=== PATIENT | female | born 1955 | race Caucasian/White ===

== ENCOUNTER 2021-05-18 14:08 | Outpatient (CLI) | payer MEDICARE, SELFPAY ==
--- NOTE | ~2021-05-18 | US_ITS ---
EXAMINATION: US venous doppler LE RT EXAM DATE: 05/18/2021 14:38 INDICATION: Localized edema/swelling. TECHNIQUE: Multiple grayscale, color flow and Doppler images of the right lower extremity deep venous system were obtained and reviewed. There is no prior study for comparison. FINDINGS: The right common femoral, femoral and profunda veins demonstrate normal color flow, respira tory variation, augmentation and compressibility. Compressibility, color flow confirmed within the r ight popliteal, posterior tibial, peroneal, and greater saphenous veins. IMPRESSION: 1. No right lower extremity deep venous thrombosis. Reviewed, dictated and finalized at location B.
== END 2021-05-18 14:09 | disposition home or self-care (01) ==
LOC: ANHIMG 14:13
PROVIDERS: PCP Registered Nurse; Visit Provider Registered Nurse
DX: R22.41 Localized swelling, mass and lump, right lower limb (principal)
CPT/HCPCS: 93971

== ENCOUNTER 2022-04-10 13:29 | Outpatient (CLI) | payer MEDICARE, SELFPAY ==
--- NOTE | ~2022-04-10 | US_ITS ---
EXAMINATION: US venous doppler [facility] DATE: 04/10/2022 14:22 INDICATION: LEFT LEG SWELLING TECHNIQUE: Grayscale images without and with compression and Doppler images of the left lower extremi ty veins were obtained. COMPARISON: 05/18/21. FINDINGS: The left common femoral vein, profunda femoral vein, femoral vein, popliteal vein, peroneal vein, pos terior tibial veins, gastrocnemius vein, and greater saphenous vein are patent. IMPRESSION: 1. Patent left lower extremity veins. No evidence of deep venous thrombosis. Reviewed, dictated and finalized at location K.
== END 2022-04-10 13:30 | disposition home or self-care (01) ==
PROVIDERS: PCP Registered Nurse; Visit Provider Registered Nurse
DX: M79.89 Other specified soft tissue disorders (principal)
CPT/HCPCS: 93971

== ENCOUNTER 2022-08-27 14:16 | Emergency (ER) | payer MEDICARE, SELFPAY ==
--- NOTE | ~2022-08-27 | US_ITS ---
EXAMINATION: US venous doppler [facility] DATE: 08/27/2022 16:57 INDICATION: Lower extremity swelling TECHNIQUE: Farooq scale images without and with compression and Doppler images of the bilateral lower e xtremity veins were obtained. COMPARISON: 04/10/2022 FINDINGS: The right common femoral vein, profunda femoral vein, femoral vein, popliteal vein, peroneal trunk, p osterior tibial veins, and greater saphenous vein are patent. The left common femoral vein, profunda femoral vein, femoral vein, popliteal vein, peroneal trunk, po sterior tibial veins, and greater saphenous vein are patent. IMPRESSION: 1. Patent bilateral lower extremity veins. No evidence of deep venous thrombosis. Reviewed, dictated and finalized at location A. IMPRESSION: 1. Patent bilateral lower extremity veins. No evidence of deep venous thrombosi s.
--- NOTE | ~2022-08-27 | XR_ITS ---
EXAMINATION: XR chest 2V DATE: 08/27/2022 16:35 INDICATION: Hypoxia TECHNIQUE: PA and lateral views of the chest are obtained. COMPARISON: None available FINDINGS: There are patchy opacities of the mid and lower lung zones. No pleural effusion or pneumoth orax. The cardiomediastinal silhouette is normal. There is moderate thoracic spondylosis. IMPRESSION: 1. Patchy opacities of the mid and lower lung zones, consistent with atelectasis versus pneumonia. Reviewed, dictated and finalized at location A. IMPRESSION: 1. Patchy opacities of the mid and lower lung zones, consistent with atelectasi s versus pneumonia.
[2022-08-27 14:23] VITALS: BP 132/72; PULSE 104; RESP 16; TEMP 36.9; O2SAT 94
--- NOTE | 2022-08-27 15:10 | PC.NURSE ---
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 I do not appreciate that 3 other people who came in after I did have been back before me. This rn explained that the patient was the next to come back as soon as a bed became available.
--- NOTE | 2022-08-27 15:30 | PC.NURSE ---
1st call, no answer.
[2022-08-27 16:00] VITALS: BP 128/73; PULSE 63; RESP 12; O2SAT 95
[2022-08-27 16:16] LABS: Basophils Absolute Auto 0.1 K/mm3 (0.0-0.1); Basophils Percent Auto 0.6 % (0.2-1.2); Eosinophils Absolute Auto 0.3 K/mm3 (0-0.3); Eosinophils Percent Auto 2.9 % (0-4.4); Hematocrit 35.7 % (37.0-47.0); Hemoglobin 12.1 g/dL (12.0-15.0); Immature Granulocyte Absolute 0.02 K/mm3 (0.00-0.031); Immature Granulocyte Percent A 0.2 % (0-0.5); Lymphocytes Absolute Auto 2.54 K/mm3 (0.9-3.2); Lymphocytes Percent Auto 29.6 % (18.3-44.2); Mean Corpuscular HGB Conc 33.9 g/dl (32-36); Mean Corpuscular Hemoglobin 29.2 pg (26-34); Mean Platelet Volume 10.3 fl (7.4-10.4); Monocytes Absolute Auto 0.7 K/mm3 (0.1-0.6); Monocytes Percent Auto 7.7 % (2.6-8.5); Neutrophils Absolute Auto 5.1 K/mm3 (1.3-6.7); Platelet Count Result 308 k/mm3 (150-375); Red Blood Count 4.15 M/mm3 (4.2-5.4); Red Cell Distribution Width 15.1 % (11.5-14.5); White Blood Count 8.6 K/mm3 (4.5-10.0)
[2022-08-27 16:26] LABS: Prothrombin Time 12.8 Seconds (11.1-14.7)
[2022-08-27 16:27] LABS: Partial Thromboplastin Time 33.4 SECONDS (22.3-36.8)
[2022-08-27 16:56] LABS: Alanine Aminotransferase 19 U/L (6-35); Alkaline Phosphatase 102 U/L (38-126); Anion Gap 11 mmol/L (8-16); Aspartate Amino Transferase 30 U/L (14-36); Bilirubin,Total 0.3 mg/dL (0.2-1.3); Blood Urea Nitrogen 15 mg/dL (7-17); Calcium 9.4 mg/dL (8.4-10.2); Carbon Dioxide 32 mmol/L (22-30); Chloride 92 mmol/L (98-107); Estimated CRCL calculation 43 ml/min; Estimated Glomerular Filt Rate > 60; Glucose 85 mg/dL (65-110); Sodium 135 mmol/L (137-145)
[2022-08-27 17:04] LABS: CRP 3.6 mg/dL (<1.0)
--- NOTE | 2022-08-27 17:12 | ED.WOUNDLAC ---
HPI - Wound/Laceration General Chief Complaint: Wound/Laceration Stated Complaint: infected hernandez and back of leg Time Seen by Provider: 08/27/22 15:47 Source: patient and RN notes reviewed Mode of arrival: ambulatory Limitations: no limitations History of Present Illness HPI narrative: This is a 67 year old female smoker who presents for evaluation of wounds to left lower leg. She has been getting intermittent small sores to her left hernandez for 1 year. She states over the past few days she has notices 3 small red areas to her hernandez. She also reports edema to her left leg for 1 year and it has continued worsen. She also reports her right leg seems to have more swelling since yesterday. She denies shortness of breath, fever, chills, chest pain, nausea or vomiting. She was placed on z valorie 2 weeks ago for possible pneumonia. Related Data Home Medications Medication Instructions Recorded Confirmed cyclobenzaprine 10 mg tablet mg 08/27/22 oxybutynin chloride 5 mg mg PO 08/27/22 tablet,extended release 24 hr oxycodone 10 mg tablet mg 08/27/22 oxycodone 10 mg tablet,crush mg PO 08/27/22 resistant,extended release 12 hr (OxyContin) pregabalin 100 mg capsule mg 08/27/22 sertraline 100 mg tablet mg 08/27/22 Allergies Allergy/AdvReac Type Severity Reaction Status Date / Time Cephalosporins Allergy Rash Verified 08/27/22 14:26 vancomycin Allergy Rash Verified 08/27/22 14:26 Review of Systems Review of Systems: All systems reviewed & are unremarkable except as noted in HPI and below Constitutional: Constitutional: Denies chills, Denies fatigue and Denies fever(s) Respiratory: Respiratory: Denies chest congestion and Reports cough Gastrointestinal: Gastrointestinal: Denies abdominal pain, Denies nausea and Denies vomiting Integumentary/Breasts: Skin/Breast: Reports erythema and Reports skin ulcer Neurologic: Denies focal weakness PMFSH Past Medical History Medical History Hypertension Surgical History Surgical History H/O umbilical hernia repair Family History Family History (Updated 06/13/22 @ 16:08 by Dolores Gaines MA) Other Heart disease Hypertension Social History Social History (Updated 08/27/22 @ 17:15 by Margarita Edwards MD) Smoking status: Current every day smoker Alcohol intake: current Substance use: current Substance use type: marijuana Exam Const: General: no acute distress and alert Nutritional Appearance: well nourished Orientation/consciousness: patient oriented x3 Limitations: no limitations HENMT: Head: normal to inspection Eyes: EOM: EOMs intact bilaterally Chest: Chest palpation & inspection: normal inspection of the chest Resp: Effort & Inspection: normal respiratory effort Auscultation: clear to auscultation bilaterally Cardio: Rate: regular rate Rhythm: regular rhythm Heart sounds: no murmurs GI: GI Palp: Yes Soft to palpation, No Tenderness to palpation present (GI), No Guarding due to palpation present (GI) and No Rigid due to palpation Auscultation: normal bowel sounds Skin: General skin exam: normal color Other: left anterior lower leg with flaky, scaly skin with small areas with randolph crusting, mild erythema Neuro: General: patient oriented x3, moves all extremities and CN's II-XI intact bilaterally Extrem: Other: bilateral lower leg edema with left greater than right Psych: Mental Status: mental status grossly normal Affect: normal affect Attitude: cooperative Course Reevaluation(s) Reevaluation #1: I Discussed with patient labs are unremarkable. ABG is not arterial. PAtient is not 77% on room air and she is no acute distress. REspiratory tried multiple times unable to get arterial draw. PAtient was not acidotic. She will be treated for impetigo. Date: 08/27/22 Time: 17:15 Vital Signs Vital signs
[2022-08-27 17:29] LABS: Base Excess ABG 3.5 mEq/l (+/-2.0); Fractional Inspired Oxygen 21 %; Methemoglobin ABG 0.1 %THb (0-1.5)
[2022-08-27 17:32] LABS: NT Pro B Type Natriuretic Pept 324 pg/mL (5-100)
[2022-08-27 17:51] LABS: PCO2 ABG 45.2 mmHg (35.0-45.0); pH ABG 7.419 (7.350-7.450)
[2022-08-27 17:52] LABS: HCO3 ABG 28.6 mEq/l (22.0-26.0); Oxygen Saturation ABG 77.7 % (95.0-100.0); PO2 ABG 41.6 mmHg (80.0-100.0)
[2022-08-27 17:53] LABS: Carboxyhemoglobin 9.3 % THb (0-2.0); Oxygen Content ABG 13.1 %vol (16.0-22.0); Oxyhemoglobin 74.2 % THb (90.0-100.0); PO2 FiO2 Ratio Arterial Blood 1.98 %; Reduced Hemoglobin 16.4 %THb (0-5.0); Total Hemoglobin 12.6 g/dL (12.0-18.0)
[2022-08-27 17:54] LABS: Device ROOM AIR; Modified Allen's Test Pass; Site Drawn LEFT RADIAL
[2022-08-27 18:00] VITALS: BP 139/85; PULSE 99; RESP 19; O2SAT 96
[2022-08-27 18:05] LABS: SARS-CoV-2 RNA PCR Negative
== END 2022-08-27 18:50 | disposition home or self-care (01) ==
PROVIDERS: Emergency Provider General Practice; PCP Registered Nurse
DX: L01.00 Impetigo, unspecified (principal); R60.0 Localized edema; Z20.822 Contact with and (suspected) exposure to COVID-19; I10 Essential (primary) hypertension; F17.200 Nicotine dependence, unspecified, uncomplicated; R91.8 Other nonspecific abnormal finding of lung field
CPT/HCPCS: 36415; 36600; 71046; 80053; 82375; 82805; 83050; 83880; 85025; 85610; 85730; 86140; 93970; 99284; C9803; U0003; U0005

== ENCOUNTER 2022-09-13 15:30 | Inpatient (IN) | payer MEDICARE, SELFPAY ==
[2022-09-13] VITALS (7 sets, daily range): BP systolic 104–138; BP diastolic 58–84; PULSE 67–99; RESP 16–18; TEMP 37–37.1; O2SAT 90–95; BMI 17.6
--- NOTE | ~2022-09-13 | US_ITS ---
EXAMINATION: US venous doppler [facility] DATE: 09/16/2022 11:10 INDICATION: Lower limb swelling TECHNIQUE: Grayscale ultrasound images without and with compression and Doppler ultrasound images of the left lower extremity veins were obtained. COMPARISON: None. FINDINGS: The visualized portions of left common femoral vein, profunda (deep) femoral vein, femoral vein, popl iteal vein, peroneal veins, posterior tibial veins, gastrocnemius vein and greater saphenous vein out flow are patent. IMPRESSION: 1. No deep venous thrombosis in the left lower limb. Reviewed, dictated and finalized at location A.
--- NOTE | ~2022-09-13 | XR_ITS ---
EXAMINATION: XR chest 2V DATE: 09/13/2022 18:21 INDICATION: Hypoxia TECHNIQUE: AP and lateral views of the chest are obtained. COMPARISON: 08/27/2022 FINDINGS: Patchy opacities of the mid and lower lung zones persist without significant change. No ple ural effusion or pneumothorax. The cardiomediastinal silhouette is normal. There is moderate thoracic spondylosis. IMPRESSION: 1. Stable patchy opacities of the mid and lower lung zones, consistent with atelectasis versus pneumo sarah. Reviewed, dictated and finalized at location F. IMPRESSION: 1. Stable patchy opacities of the mid and lower lung zones, consistent with ate lectasis versus pneumonia.
--- NOTE | ~2022-09-13 | CT_ITS ---
EXAMINATION: CT chest high resolution wo co DATE: 09/15/2022 17:07 INDICATION: hypoxia TECHNIQUE: Computed tomography (CT) of the chest, including high-resolution imaging of the lungs was performed without intravenous contrast. Automated exposure control and iterative reconstruction techn ique were employed. The dose-length product was 133.52 mGy-cm. COMPARISON: X-ray chest 09/13/2022. FINDINGS: CHEST: Thoracic aorta: Moderate arch calcification. Lung parenchyma and airways: Apical pleural scarring and blebs. Emphysematous change. Linear scarring in the mid and lower lungs bilaterally. Bibasilar atelectasis.. Thoracic inlet, axillae and chest wall: Subcentimeter right thyroid lobe hypodensity that requires no additional evaluation. Mediastinum: No mass or lymphadenopathy. Heart and pericardium: Normal heart size. No pericardial effusion. Aortic valve calcifications. Coronary artery calcifications: Moderate. Pleura: No effusion or mass. Upper abdomen: 2.2 cm intermediate density left midpole mass with surrounding renal parenchymal hyper density. Thoracic bones: Multiple mild and moderate anterior wedge deformities at the thoracolumbar junction. IMPRESSION: Severe emphysematous change. Indeterminate 2.2 cm left midpole lesion, recommend MR or CT the kidneys without and with contrast for further evaluation. Multiple mild and moderate thoracolumbar wedge com pression fractures of uncertain age, correlate with pain/point tenderness. Reviewed, dictated and finalized at location K. IMPRESSION: Severe emphysematous change. Indeterminate 2.2 cm left midpole lesion, recommen d MR or CT the kidneys without and with contrast for further evaluation. Multip le mild and moderate thoracolumbar wedge compression fractures of uncertain age , correlate with pain/point tenderness.
--- NOTE | 2022-09-13 16:17 | ED.SKABFB ---
HPI - Skin/Abscess/Foreign Bdy General Chief complaint: Skin/Abscess/Foreign Body <KEKE Berrios Last Filed: 09/13/22 18:13> Stated complaint: skin infection to L. hernandez <KEKE Berrios Last Filed: 09/13/22 18:13> Time Seen by Provider: 09/13/22 15:37 <KEKE Berrios Last Filed: 09/13/22 18:13> Source: patient <KEKE Berrios Last Filed: 09/13/22 18:13> Mode of arrival: ambulatory <KEKE Berrios Last Filed: 09/13/22 18:13> Limitations: no limitations <KEKE Berrios Last Filed: 09/13/22 18:13> History of Present Illness HPI narrative: Patient is a 67 y/o female who presents to the ED with c/o cellulitis to her L lower leg. Patient reports she was seen in the ED here on 08/27 for redness and swelling to her left lower leg. Negative US of BLE at that time. She was diagnosed with impetigo and rx'd mupirocin and Doxycycline 7 day course. She states the redness and swelling improved slightly initially. She was placed on another 7-day course of Doxy by her primary care doctor and has 1 day left of this. Over the last 2 days however, patient has experienced worsening redness, scaling, weeping, pain. She was then referred to the ED by further evaluation. She denies any known fever. No CP, SOB, N/V. <KEKE Berrios Last Filed: 09/13/22 18:13> Related Data Home medications: Home Medications Medication Instructions Recorded Confirmed cyclobenzaprine 10 mg tablet mg 08/27/22 oxybutynin chloride 5 mg mg PO 08/27/22 tablet,extended release 24 hr oxycodone 10 mg tablet mg 08/27/22 oxycodone 10 mg tablet,crush mg PO 08/27/22 resistant,extended release 12 hr (OxyContin) pregabalin 100 mg capsule mg 08/27/22 sertraline 100 mg tablet mg 08/27/22 <Gaby Lundy PA-C - Last Filed: 09/13/22 18:13> Allergies/Adverse reactions: Allergies Allergy/AdvReac Type Severity Reaction Status Date / Time vancomycin Allergy Rash Verified 09/13/22 15:56 <Gaby Lundy PA-C - Last Filed: 09/13/22 18:13> Review of Systems Review of Systems: CONSTITUTIONAL: Denies fever, chills, or sweats. CARDIOVASCULAR: Denies chest pain. RESPIRATORY: Denies dyspnea. GASTROINTESTINAL: Denies abdominal pain, nausea, vomiting. SKIN: Reports redness, weeping, scaling, warmth to LLE. MUSCULOSKELETAL: Reports pain to LLE. <Gaby Lundy PA-C - Last Filed: 09/13/22 18:13> All systems reviewed & are unremarkable except as noted in HPI and below <Gaby Lundy PA-C - Last Filed: 09/13/22 18:13> [facility] Past Medical History Medical History: Medical History (Updated 09/13/22 @ 17:58 by Gaby Lundy PA-C) Chronic back pain Hypertension Overactive bladder <Gaby Lundy PA-C - Last Filed: 09/13/22 18:13> Surgical History Surgical History: Surgical History (Updated 09/13/22 @ 16:18 by Gaby Lundy PA-C) H/O umbilical hernia repair History of spinal fusion <Gaby Lundy PA-C - Last Filed: 09/13/22 18:13> Family History Family History: Family History (Updated 06/13/22 @ 16:08 by Dolores Gaines MA) Other Heart disease Hypertension <Gaby Lundy PA-C - Last Filed: 09/13/22 18:13> Social History Social History: Social History Smoking status: Current every day smoker Alcohol intake: current Substance use: current Substance use type: marijuana <Gaby Lundy PA-C - Last Filed: 09/13/22 18:13> Exam Narrative: GENERAL: Appears older than stated age, thin, non-toxic, in no acute distress. HEAD: Normocephalic, atraumatic. NECK: Supple. No adenopathy, no masses. RESPIRATORY: Airway patent, respirations nonlabored. Clear to auscultation bilaterally, no rales, rhonchi, wheezing. CARDIOVASCULAR: Regular rate and rhythm witho
--- NOTE | 2022-09-13 16:20 | PC.NURSE ---
Strong left pedal pulse palpated.
[2022-09-13 16:50] LABS: Basophils Absolute Auto 0.1 K/mm3 (0.0-0.1); Basophils Percent Auto 0.7 % (0.2-1.2); Eosinophils Absolute Auto 0.1 K/mm3 (0-0.3); Eosinophils Percent Auto 1.6 % (0-4.4); Hematocrit 38.6 % (37.0-47.0); Hemoglobin 12.7 g/dL (12.0-15.0); Immature Granulocyte Absolute 0.02 K/mm3 (0.00-0.031); Immature Granulocyte Percent A 0.2 % (0-0.5); Lymphocytes Absolute Auto 2.01 K/mm3 (0.9-3.2); Lymphocytes Percent Auto 22.6 % (18.3-44.2); Mean Corpuscular HGB Conc 32.9 g/dl (32-36); Mean Corpuscular Hemoglobin 29.2 pg (26-34); Mean Corpuscular Volume 88.7 fl (80-100); Mean Platelet Volume 10.7 fl (7.4-10.4); Monocytes Absolute Auto 0.6 K/mm3 (0.1-0.6); Monocytes Percent Auto 6.3 % (2.6-8.5); Neutrophils Absolute Auto 6.1 K/mm3 (1.3-6.7); Neutrophils Percent Auto 68.6 % (45.5-73.1); Platelet Count Result 318 k/mm3 (150-375); Red Blood Count 4.35 M/mm3 (4.2-5.4); Red Cell Distribution Width 16.4 % (11.5-14.5); White Blood Count 8.9 K/mm3 (4.5-10.0)
[2022-09-13 17:01] LABS: Alanine Aminotransferase 19 U/L (6-35); Alkaline Phosphatase 112 U/L (38-126); Anion Gap 7 mmol/L (8-16); Aspartate Amino Transferase 31 U/L (14-36); Bilirubin,Total 0.4 mg/dL (0.2-1.3); Blood Urea Nitrogen 19 mg/dL (7-17); Calcium 8.7 mg/dL (8.4-10.2); Carbon Dioxide 26 mmol/L (22-30); Chloride 101 mmol/L (98-107); Estimated CRCL calculation 43 ml/min; Estimated Glomerular Filt Rate > 60; Glucose 94 mg/dL (65-110); Potassium 4.1 mmol/L (3.4-5.0); Sodium 134 mmol/L (137-145)
--- NOTE | 2022-09-13 17:37 | PC.NURSE ---
Gaby BRIAN at bedside to discuss results and treatment plan with patient.
--- NOTE | 2022-09-13 18:04 | PC.NURSE ---
SpO2 dropping between 87% and 89% on room air while patient is resting. Pt reports he SpO2 always reads low at doctors appointment and she thinks this is due to her nail czech. A different bonnie of pulse ox used and is measuring the same. Pulse ox moved to ear, continues to read 87-89% with good waveform. Pt placed on 2L/NC. SpO2 increased to 93%. Pt denies any shortness of breath. PA made aware.
[2022-09-13 18:26] LABS: Alveolar/Arterial O2 Gradient 53.2 mmHg; Base Excess ABG -0.2 mEq/l (+/-2.0); Carboxyhemoglobin 8.4 % THb (0-2.0); Fractional Inspired Oxygen 21 %; HCO3 ABG 24.6 mEq/l (22.0-26.0); Methemoglobin ABG 0.1 %THb (0-1.5); Oxygen Content ABG 15.1 %vol (16.0-22.0); PCO2 ABG 40.5 mmHg (35.0-45.0); PO2 FiO2 Ratio Arterial Blood 2.29 %; Reduced Hemoglobin 13.1 %THb (0-5.0); Total Hemoglobin 13.7 g/dL (12.0-18.0); pH ABG 7.401 (7.350-7.450)
[2022-09-13 18:27] LABS: Oxygen Saturation ABG 83.9 % (95.0-100.0)
[2022-09-13 18:28] LABS: Device ROOM AIR; Modified Allen's Test Pass; Oxyhemoglobin 78.4 % THb (90.0-100.0); Site Drawn RIGHT RADIAL
--- NOTE | 2022-09-13 18:34 | PC.NURSE ---
Pt states she can not have Ancef because cephalosporins have given her C. Diff in the past. SNEHAL Griffin made aware and at bedside to speak with patient.
--- NOTE | 2022-09-13 19:54 | ADMGEN ---
This patient, [place]al [place], was admitted to 2 Medical Room 242-. Patient/family oriented to hospital policies and general routines including ID bracelet, bed and alarms, visiting hours, pain management, procedures, bathroom and other care routines, personal items, smoking policy, room service/diet, and visiting hours. Information on how to activate the Rapid Response Team has been discussed. Patient/Family are encouraged to report perceived risks to care and to ask questions if they do not understand what they are told or what they should do.
[2022-09-13] MEDS: oxyCODONE HCL (*CRX) 10 MG TAB SR 12HR PO (21:18)
--- NOTE | 2022-09-13 23:25 | PM.IMHP ---
H&P: HPI History of Present Illness Date/Time: 09/13/22 23:25 Chief Complaint: Skin infection the left leg Narrative: this is a 67-year-old female patient who came to the emergency room today with complaint of cellulitis to the left lower leg. The patient was seen in the emergency room previously on 08/27 for redness and swelling to her left lower extremity. She had a negative ultrasound at the time to both of her legs. The patient was diagnosed with impetigo and prescribed mupirocin and doxycycline for 7 day course. She then followed up with her primary care doctor who gave her another 7 day course. Over the last 2 days the patient has experienced worsening redness, and swelling. Her leg is become more red scaly and weeping and she is having some pain. She denies any fever chills. No nausea vomiting or diarrhea. ER had a long discussion with the patient about antibiotic treatment. The patient stated that she has gotten C diff is sound the past and that she cannot take vancomycin or cephalosporins. The patient does not typically wear oxygen but was short of breath in the emergency room and was placed on oxygen at 2 L per nasal cannula. The chest x-ray was read as stable patchy opacities of the mid and lower lung zones consistent with atelectasis versus pneumonia. The patient has been started on Primaxin. Patient routinely takes OxyContin for her lower back pain. The patient initially was started on Ancef however the patient and her son were not agreeable to the antibiotic. The patient is being admitted to observation on the date of service of 09/13/2022 Review of Systems Review of Systems: see HPI All systems reviewed & are unremarkable except as noted in HPI and below Constitutional: Constitutional: Reports as per HPI and Reports no additional constitutional complaints Eyes: Eyes: Reports as per HPI and Reports no additional eye complaints ENT: Reports system reviewed and no additional complaints, except as documented and Reports Normal hearing present Cardiovascular: Cardiovascular: Reports no additional cardiovascular complaints Respiratory: Respiratory: Reports no additional respiratory complaints and Reports no additional respiratory complaints Gastrointestinal: Gastrointestinal: Reports as per HPI and Reports no additional gastrointestinal complaints Musculoskeletal: Musculoskeletal: Reports no additional musculoskeletal complaints Integumentary/Breasts: Skin/Breast: Reports system reviewed and no additional complaints, except as docu and Reports as per HPI Neurologic: Reports system reviewed and no additional complaints, except as documented, Reports as per HPI and Reports Normal hearing present Psychiatric: Psychiatric: Reports no additional psychiatric complaints and Reports as per HPI Endocrine: Endocrine: Reports no additional endocrine complaints Hematologic/Lymphatic: Hematologic/Lymphatic: Reports no additional hematologic/lymphatic complaints Allergic/Immunologic: Allergic/Immunologic: Reports no additional allergic/immunologic complaints PMF Past Medical History Medical History (Updated 09/14/22 @ 00:41 by Stephanie Shukla NP) Chronic back pain Depression Hypertension Overactive bladder Surgical History Surgical History (Updated 09/14/22 @ 00:42 by Stephanie Shukla NP) H/O tubal ligation tubal repair after a tubal H/O umbilical hernia repair History of appendectomy History of foot surgery History of spinal fusion Family History Family History Other Heart disease Hypertension Social History Social History (Updated 09/14/22 @ 00:44 by Stephanie Shukla NP) Social History: the patient has 2 adopted children and no biological children. Patient smokes 3/4 of a pack a cigarettes daily and has no intention on smoking cessation. The patient does have a nightly beer. The patient is and lives with her [facility]
[2022-09-14 02:25] LABS: Influenza A QL RT-PCR Negative (Negative); Influenza B QL RT-PCR Negative (Negative); SARS-CoV-2 RNA PCR Negative
[2022-09-14 03:01] VITALS: BP 112/52; PULSE 86; RESP 18; TEMP 36.7; O2SAT 97
[2022-09-14 05:28] LABS: Basophils Percent Auto 0.3 % (0.2-1.2); Eosinophils Absolute Auto 0.2 K/mm3 (0-0.3); Eosinophils Percent Auto 2.4 % (0-4.4); Hematocrit 33.4 % (37.0-47.0); Hemoglobin 11.2 g/dL (12.0-15.0); Immature Granulocyte Absolute 0.03 K/mm3 (0.00-0.031); Immature Granulocyte Percent A 0.3 % (0-0.5); Lymphocytes Percent Auto 6.2 % (18.3-44.2); Mean Corpuscular HGB Conc 33.5 g/dl (32-36); Mean Corpuscular Hemoglobin 29.2 pg (26-34); Mean Corpuscular Volume 87.2 fl (80-100); Mean Platelet Volume 11.5 fl (7.4-10.4); Monocytes Absolute Auto 0.4 K/mm3 (0.1-0.6); Neutrophils Absolute Auto 8.4 K/mm3 (1.3-6.7); Neutrophils Percent Auto 86.8 % (45.5-73.1); Platelet Count Result 287 k/mm3 (150-375); Red Blood Count 3.83 M/mm3 (4.2-5.4); Red Cell Distribution Width 16.5 % (11.5-14.5); White Blood Count 9.7 K/mm3 (4.5-10.0)
[2022-09-14 05:44] LABS: Alanine Aminotransferase 14 U/L (6-35); Albumin Level 3.1 g/dL (3.5-5.1); Alkaline Phosphatase 89 U/L (38-126); Anion Gap 9 mmol/L (8-16); Aspartate Amino Transferase 21 U/L (14-36); Bilirubin,Total 0.4 mg/dL (0.2-1.3); Blood Urea Nitrogen 15 mg/dL (7-17); Calcium 8.1 mg/dL (8.4-10.2); Carbon Dioxide 25 mmol/L (22-30); Chloride 104 mmol/L (98-107); Estimated CRCL calculation 50 ml/min; Estimated Glomerular Filt Rate > 60; Glucose 91 mg/dL (65-110); Magnesium 1.5 mg/dL (1.6-2.3); Potassium 3.4 mmol/L (3.4-5.0); Sodium 138 mmol/L (137-145)
[2022-09-14 05:54] LABS: Lactic Acid Reflex < 0.5 mmol/L (0.7-2.0)
[2022-09-14] MEDS: oxyCODONE HCL (*CRX) 10 MG TAB SR 12HR PO ×2 (07:18→22:01)
[2022-09-14 08:00] VITALS: O2SAT 97
[2022-09-14] MEDS: MAGNESIUM SULF 2 GM/WATER 50ML 2 GM/50 ML BAG IVPB (08:34)
[2022-09-14] MEDS: POTASSIUM CHLORIDE 20 MEQ PACKET (FOR LIQUID) 40 MEQ PO (08:38)
[2022-09-14] MEDS: FERROUS SULFATE 324 MG TABLET PO (08:40)
[2022-09-14] MEDS: amLODIPine BESYLATE 5 MG TABLET 10 MG PO (08:41)
[2022-09-14] MEDS: ENOXAPARIN 40 MG/0.4 ML SYRINGE SUB-Q (08:41)
[2022-09-14] MEDS: PREGABALIN (*CRX) 50 MG CAPSULE 100 MG PO (08:42)
[2022-09-14] MEDS: SERTRALINE HCL 50 MG TABLET 100 MG PO (08:42)
[2022-09-14] MEDS: MUPIROCIN 2% OINT 22 GM TUBE 1 APPLIC TOPICAL ×2 (08:42→17:26)
[2022-09-14] MEDS: oxyCODONE HCL (*CRX) 5 MG TAB IR 10 MG PO ×3 (10:42→19:42)
[2022-09-14] MEDS: ACIDOPHILUS PACKET 1 PKT PACKET PO ×3 (12:21→20:46)
[2022-09-14 13:00] VITALS: BP 124/57; PULSE 102; RESP 18; TEMP 36.8; O2SAT 96
--- NOTE | 2022-09-14 17:30 | PM.IMPN ---
Progress Note: A&P Assessment and Plan (1) Cellulitis of left lower extremity: Code(s): L03.116 - Cellulitis of left lower limb Status: Acute Assessment and Plan: The patient presents with left leg erythema and diagnosed with cellulitis. She is allergic to vancomycin and cephalosporins. The patient was placed on Primaxin . The family was concerned about her getting C diff. Blood cultures are pending. Clinically improved. Repeat LE dopplers. (2) Acute respiratory failure with hypoxia: Code(s): J96.01 - Acute respiratory failure with hypoxia Status: Acute Assessment and Plan: The patient noted to be hypoxic on admission. She is currently on 3L. CXR on admission showing mid and lower lung zone airspace opacities (consider PNA but no change from 08/27/22). Diaphragms are flat so consider emphysema. Check CT chest. (3) Depression: Code(s): F32.A - Depression, unspecified Status: Acute Assessment and Plan: Mood stable. Continue sertraline. (4) Chronic back pain: Code(s): M54.9 - Dorsalgia, unspecified; G89.29 - Other chronic pain Status: Acute Assessment and Plan: Patient with chronic back pain on chronic narcotics for this. OxyContin and oxycodone have been resumed (5) Overactive bladder: Code(s): N32.81 - Overactive bladder Status: Acute Assessment and Plan: Stable. Continue oxybutynin. Subjective Date/time seen: 09/14/22 17:30 Interval history: 67yo female with HTN, depression and ch back pain here for left leg redness and found to have cellulitis. She feels the left leg looks better. No CP or SOB. She is on 3L O2. She does not wear O2 at home. No hx of COPD or emphysema. No MILO. Denies odynophagia or dysphagia. No cough. She does smoke. No nausea or vomiting. Exam Narrative: AF 98.3 124/57 102 18 96% 3L Gen - NARD Chest - L>R bibasilar inspiratory crackles. nml RR CV - RRR S1/S2 Abd - Soft, NT/ND, Positive BS Ext - No pedal edema Psych - Nml mood and affect Skin - left lower erythematous patch involving the hernandez extending into the calf. mostly dry. randolph crusting noted around the ankle area. Objective Data Vital Signs Vital Signs: Vital Signs - 24 hr 09/13/22 17:58 09/13/22 18:04 09/13/22 19:31 Temperature Pulse Rate 67 Respiratory Rate 16 Blood Pressure 123/84 104/58 L Pulse Oximetry 92 92 90 Oxygen Delivery Nasal Cannula Oxygen Flow Rate 2 09/13/22 20:09 09/13/22 20:00 09/14/22 03:01 Temperature 98.6 F 98.1 F Pulse Rate 78 86 Respiratory Rate 18 18 Blood Pressure 138/65 112/52 L Pulse Oximetry 94 94 97 Oxygen Delivery Nasal Cannula Oxygen Flow Rate 3 09/14/22 08:00 09/14/22 13:00 Temperature 98.3 F Pulse Rate 102 H Respiratory Rate 18 Blood Pressure 124/57 L Pulse Oximetry 97 96 Oxygen Delivery Nasal Cannula Oxygen Flow Rate 3 Intake/Output Intake/Output: Intake & Output 09/11/22 09/12/22 09/13/22 09/14/22 23:59 23:59 23:59 23:59 Intake Total 100 760 Output Total 800 Balance 100 -40 Meds/Results Medications: Active Medications Generic Name Dose Route Start Last Admin Trade Name Freq PRN Reason Stop Dose Admin Amlodipine Besylate 10 mg 09/14/22 09:00 09/14/22 08:41 Amlodipine Besylate 5 Mg Tablet PO 10 mg DAILY [facility] Administration Cyclobenzaprine HCl 10 mg 09/14/22 00:55 Cyclobenzaprine Hcl 10 Mg Tablet PO BID PRN Muscle Spasm Enoxaparin Sodium 40 mg 09/14/22 09:00 09/14/22 08:41 Enoxaparin 40 Mg/0.4 Ml Syringe SUB-Q 40 mg DAILY [facility] Administration Ferrous Sulfate 324 mg 09/14/22 08:00 09/14/22 08:40 Ferrous Sulfate 324 Mg Tablet PO 324 mg DAILY@0800 [facility] Administration Imipenem/Cilastatin Sodium 250 100 mls @ 200 mls/hr 09/14/22 20:00 mg/ Sodium Chloride IVPB Q8H [facility] Lactobacillus Acidophilus 1 pkt 09/14/22 09:00 09/14/22 17:26 Acidophil
[2022-09-14 19:18] VITALS: BP 110/57; PULSE 101; RESP 22; TEMP 37.7; O2SAT 90
[2022-09-14 19:48] VITALS: O2SAT 90
[2022-09-15 03:28] VITALS: BP 120/59; PULSE 86; RESP 18; TEMP 36.3; O2SAT 96
[2022-09-15 05:57] LABS: Hematocrit 33.1 % (37.0-47.0); Mean Corpuscular HGB Conc 33.2 g/dl (32-36); Mean Corpuscular Hemoglobin 28.8 pg (26-34); Mean Corpuscular Volume 86.6 fl (80-100); Mean Platelet Volume 11.5 fl (7.4-10.4); Platelet Count Result 260 k/mm3 (150-375); Red Blood Count 3.82 M/mm3 (4.2-5.4); Red Cell Distribution Width 16.4 % (11.5-14.5); White Blood Count 6.9 K/mm3 (4.5-10.0)
[2022-09-15 06:20] LABS: Anion Gap 4 mmol/L (8-16); Blood Urea Nitrogen 16 mg/dL (7-17); Calcium 8.1 mg/dL (8.4-10.2); Carbon Dioxide 27 mmol/L (22-30); Chloride 102 mmol/L (98-107); Estimated CRCL calculation 50 ml/min; Estimated Glomerular Filt Rate > 60; Glucose 96 mg/dL (65-110); Magnesium 1.8 mg/dL (1.6-2.3); Potassium 3.9 mmol/L (3.4-5.0); Sodium 133 mmol/L (137-145)
[2022-09-15 08:00] VITALS: O2SAT 94
[2022-09-15] MEDS: FERROUS SULFATE 324 MG TABLET PO (08:41)
[2022-09-15] MEDS: amLODIPine BESYLATE 5 MG TABLET 10 MG PO (08:42)
[2022-09-15] MEDS: MUPIROCIN 2% OINT 22 GM TUBE 1 APPLIC TOPICAL ×2 (08:43→17:24)
[2022-09-15] MEDS: ENOXAPARIN 40 MG/0.4 ML SYRINGE SUB-Q (08:43)
[2022-09-15] MEDS: SERTRALINE HCL 50 MG TABLET 100 MG PO (08:43)
[2022-09-15] MEDS: PREGABALIN (*CRX) 50 MG CAPSULE 100 MG PO (08:45)
[2022-09-15 10:10] VITALS: O2SAT 93
[2022-09-15] MEDS: oxyCODONE HCL (*CRX) 5 MG TAB IR 10 MG PO ×3 (10:52→18:19)
[2022-09-15] MEDS: ACIDOPHILUS/BULGARICUS CHEWABLE TABLET 1 TABLET PO ×3 (12:05→20:22)
[2022-09-15 14:33] VITALS: BP 120/58; PULSE 87; RESP 17; TEMP 36.7; O2SAT 94
--- NOTE | 2022-09-15 16:52 | PM.IMPN ---
Progress Note: A&P Assessment and Plan (1) Cellulitis of left lower extremity: Code(s): L03.116 - Cellulitis of left lower limb Status: Acute Assessment and Plan: The patient presents with left leg erythema and diagnosed with cellulitis. She is allergic to vancomycin and cephalosporins. The patient was placed on Primaxin . The family was concerned about her getting C diff. Blood cultures are NGTD. Clinically improved. Repeat left LE dopplers. Add Eucerin cream. Probably home with Bactrim. (2) Acute respiratory failure with hypoxia: Code(s): J96.01 - Acute respiratory failure with hypoxia Status: Acute Assessment and Plan: The patient noted to be hypoxic on admission. She is currently on 3L. CXR on admission showing mid and lower lung zone airspace opacities (consider PNA but no change from 08/27/22). Diaphragms are flat so consider emphysema. CTA chest ordered. Have speech therapy evaluate as well. Echo pending. Check sputum (3) Depression: Code(s): F32.A - Depression, unspecified Status: Acute Assessment and Plan: Mood stable. Continue sertraline. (4) Chronic back pain: Code(s): M54.9 - Dorsalgia, unspecified; G89.29 - Other chronic pain Status: Acute Assessment and Plan: Patient with chronic back pain on chronic narcotics for this. OxyContin and oxycodone have been resumed (5) Overactive bladder: Code(s): N32.81 - Overactive bladder Status: Acute Assessment and Plan: Stable. Continue oxybutynin. Subjective Date/time seen: 09/15/22 16:52 Interval history: 67yo female with HTN, depression and ch back pain here for left leg redness and found to have cellulitis. She was on 2 rounds of Doxycycline prior to admission. Feels well. Minimal pain to the left LE. No cough. No CP or SOB. No diarrhea. Feels ready for discharge. Exam Narrative: AF 98.0 120/58 87 17 94% 3L Gen - NARD Chest - L>R bibasilar inspiratory crackles. nml RR CV - RRR S1/S2 Abd - Soft, NT/ND, Positive BS Ext - No pedal edema Psych - Nml mood and affect Skin - left lower erythematous patch that showing signs of fading. Dried randolph crusting noted around the distal posterior leg Objective Data Vital Signs Vital Signs: Vital Signs - 24 hr 09/14/22 19:18 09/14/22 19:48 09/15/22 03:28 Temperature 100 F H 97.4 F L Pulse Rate 101 H 86 Respiratory Rate 22 H 18 Blood Pressure 110/57 L 120/59 L Pulse Oximetry 90 90 96 Oxygen Delivery Nasal Cannula Oxygen Flow Rate 3 09/15/22 08:00 09/15/22 10:10 09/15/22 14:33 Temperature 98.0 F Pulse Rate 87 Respiratory Rate 17 Blood Pressure 120/58 L Pulse Oximetry 94 93 94 Oxygen Delivery Nasal Cannula Nasal Cannula Oxygen Flow Rate 3 3 Intake/Output Intake/Output: Intake & Output 09/12/22 09/13/22 09/14/22 09/15/22 23:59 23:59 23:59 23:59 Intake Total 100 1600 1060 Output Total 1650 300 Balance 100 -50 760 Meds/Results Medications: Active Medications Generic Name Dose Route Start Last Admin Trade Name Freq PRN Reason Stop Dose Admin Amlodipine Besylate 10 mg 09/14/22 09:00 09/15/22 08:42 Amlodipine Besylate 5 Mg Tablet PO 10 mg DAILY FEMI Administration Cyclobenzaprine HCl 10 mg 09/14/22 00:55 Cyclobenzaprine Hcl 10 Mg Tablet PO BID PRN Muscle Spasm Enoxaparin Sodium 40 mg 09/14/22 09:00 09/15/22 08:43 Enoxaparin 40 Mg/0.4 Ml Syringe SUB-Q 40 mg DAILY FEMI Administration Ferrous Sulfate 324 mg 09/14/22 08:00 09/15/22 08:41 Ferrous Sulfate 324 Mg Tablet PO 324 mg DAILY@0800 [facility] Administration Imipenem/Cilastatin Sodium 250 100 mls @ 200 mls/hr 09/14/22 20:00 09/15/22 12:34 mg/ Sodium Chloride IVPB Infused Q8H [facility] Infusion Lactobacillus Acidophilus 1 tablet 09/15/22 13:00 09/15/22 12:05 Acidophilus/Bulgaricus Chewable Tablet PO 1 tablet QID FEMI Administration Mupirocin
[2022-09-15] MEDS: EUCERIN CREAM 120 GM JAR 1 APPLIC TOPICAL (17:24)
[2022-09-15 20:00] VITALS: O2SAT 93
[2022-09-15 20:19] VITALS: BP 115/70; PULSE 97; RESP 16; TEMP 37.2; O2SAT 93
[2022-09-15] MEDS: oxyCODONE HCL (*CRX) 10 MG TAB SR 12HR PO (20:22)
[2022-09-16] VITALS (7 sets, daily range): BP systolic 117–143; BP diastolic 64–67; PULSE 84–110; RESP 16–24; TEMP 36.7–36.9; O2SAT 87–92; BMI 17.6
--- NOTE | 2022-09-16 | ECHO_ITS ---
Patient Info Name: Chantal Grove Age: 67 years : 1955 Gender: Female Ht: 64 in Wt: 103 lbs BSA: 1.44 m2 HR: 78 bpm BP: 143 / 64 mmHg Heart Rhythm: Sinus Rhythm Technical Quality: Good Exam Date: 09/16/2022 12:46 PM Exam Location: [facility] Exam Room: 242 Patient Status: Inpatient Admit Date: 09/15/2022 Staff Ordering Physician: Torres Cruz MD Attending Provider: Torres Cruz MD Exam Type: CA echo doppler w bubble study Study Info Indications - HYPOXIA Complete two-dimensional, color flow and Doppler transthoracic echocardiogram is performed with agitated saline. Contrast/Agitated Saline Contrast/Ag. Saline: Agitated Saline Amount: 20.00 ml Administered By: Masood Garnica [facility] Existing IV Access: Yes IV Access Condition: patent with no signs of infiltration Summary 1. Left ventricular systolic function is normal, estimated at 50-55%. 2. Right ventricular systolic function is normal. 3. Left atrial chamber dimension is moderately enlarged. 4. Patent foramen ovale visualized by color flow and agitated saline imaging. 5. There is mild tricuspid valve regurgitation. Left Ventricle Left ventricular chamber dimension is normal. Left ventricular systolic function is normal, estimated at 50-55%. There is no increased left ventricular wall thickness. The left ventricular diastolic function is indeterminate. Right Ventricle Right ventricular chamber dimension is normal. Right ventricular systolic function is normal. Left Atria Left atrial chamber dimension is moderately enlarged. Right Atria Right atrial chamber dimension is normal. Atrial Septum Patent foramen ovale visualized by color flow and agitated saline imaging. Aortic Valve The aortic valve is not well visualized. There is no aortic valve regurgitation. There is moderate aortic valve calcification. Pulmonic Valve The pulmonic valve is not well visualized. Mitral Valve The mitral valve has normal leaflets. There is no mitral valve stenosis. There is no mitral valve regurgitation. Tricuspid Valve The tricuspid valve leaflets are normal. There is no significant tricuspid valve stenosis. There is mild tricuspid valve regurgitation. Pericardium/Pleural There is no pericardial effusion. Inferior Vena Cava Normal inferior vena cava with >50% collapse upon inspiration consistent with normal right atrial pressure, 3 mmHg. Left Ventricular Outflow Tract Name Value Normal LVOT 2D LVOT Diameter 2.0 cm LVOT Doppler LVOT Peak Gradient 3 mmHg LVOT Mean Gradient 2 mmHg LVOT VTI 18 cm LVOT VTI/AV VTI Ratio 0.5 LVOT Stroke Volume 56 ml LVOT CO 11.6 l/min LVOT CI 8.1 l/min/m2 Pulmonic Valve Name Value Normal --------
[2022-09-16 05:56] LABS: Basophils Percent Auto 0.3 % (0.2-1.2); Eosinophils Absolute Auto 0.7 K/mm3 (0-0.3); Eosinophils Percent Auto 8.9 % (0-4.4); Hematocrit 36.4 % (37.0-47.0); Hemoglobin 11.9 g/dL (12.0-15.0); Immature Granulocyte Absolute 0.01 K/mm3 (0.00-0.031); Immature Granulocyte Percent A 0.1 % (0-0.5); Lymphocytes Absolute Auto 1.26 K/mm3 (0.9-3.2); Lymphocytes Percent Auto 16.5 % (18.3-44.2); Mean Corpuscular HGB Conc 32.7 g/dl (32-36); Mean Corpuscular Hemoglobin 29.2 pg (26-34); Mean Corpuscular Volume 89.2 fl (80-100); Mean Platelet Volume 11.4 fl (7.4-10.4); Monocytes Absolute Auto 0.6 K/mm3 (0.1-0.6); Neutrophils Percent Auto 66.2 % (45.5-73.1); Platelet Count Result 289 k/mm3 (150-375); Red Blood Count 4.08 M/mm3 (4.2-5.4); Red Cell Distribution Width 16.2 % (11.5-14.5); White Blood Count 7.6 K/mm3 (4.5-10.0)
[2022-09-16 06:09] LABS: Anion Gap 5 mmol/L (8-16); Blood Urea Nitrogen 11 mg/dL (7-17); Calcium 8.3 mg/dL (8.4-10.2); Carbon Dioxide 26 mmol/L (22-30); Chloride 101 mmol/L (98-107); Estimated CRCL calculation 50 ml/min; Estimated Glomerular Filt Rate > 60; Glucose 94 mg/dL (65-110); Potassium 3.6 mmol/L (3.4-5.0); Sodium 132 mmol/L (137-145)
[2022-09-16] MEDS: oxyCODONE HCL (*CRX) 10 MG TAB SR 12HR PO (07:17)
[2022-09-16] MEDS: FERROUS SULFATE 324 MG TABLET PO (09:02)
[2022-09-16] MEDS: ACIDOPHILUS/BULGARICUS CHEWABLE TABLET 1 TABLET PO ×3 (09:02→16:50)
[2022-09-16] MEDS: oxyCODONE HCL (*CRX) 5 MG TAB IR 10 MG PO ×2 (09:03→14:12)
[2022-09-16] MEDS: PREGABALIN (*CRX) 50 MG CAPSULE 100 MG PO (09:03)
[2022-09-16] MEDS: ENOXAPARIN 40 MG/0.4 ML SYRINGE SUB-Q (09:03)
[2022-09-16] MEDS: EUCERIN CREAM 120 GM JAR 1 APPLIC TOPICAL (09:03)
[2022-09-16] MEDS: amLODIPine BESYLATE 5 MG TABLET 10 MG PO (09:04)
[2022-09-16] MEDS: SERTRALINE HCL 50 MG TABLET 100 MG PO (09:04)
--- NOTE | 2022-09-16 09:38 | HOMEO2EVAL ---
Evaluation was performed at [facility] Home Oxygen Evaluation RC: Home Oxygen (O2) Evaluation Start: 09/15/22 17:00 Freq: ONCE Status: Active Protocol: RPE Activity Type Activity Date Activity User E-sign Co-sign Detail Recorded Client Recorded Date Recorded By Document 09/16/22 09:11 KRM [email or web address] 09/16/22 09:38 KRM Document 09/16/22 09:13 KRM [email or web address] 09/16/22 09:38 KRM Document 09/16/22 09:15 KRM [email or web address] 09/16/22 09:38 KRM Document 09/16/22 09:20 KRM [email or web address] 09/16/22 09:38 KRM 09/16/22 09/16/22 09/16/22 09:11 09:13 09:15 Home O2 Evaluation [Oxygen] -Test Phase Resting Resting Resting -Oxygen Delivery Room Air Nasal Cannula Nasal Cannula -Oxygen Flow Rate (L/min) 1 2 [Pulse Oximetry] -Pulse Oximetry (90-100 %) 87 L 88 L 90 [Pulse Rate] -Pulse Rate (60-100 beats/min) 110 H 102 H 102 H [Evaluation] -Activity Tolerance [Exercise] -Ambulation Distance (feet) -Ambulation Distance (meters) [Comments] -Home Oxygen Evaluation Comments [Charges] -Treatment Charges 09/16/22 09:20 Home O2 Evaluation [Oxygen] -Test Phase Exercise -Oxygen Delivery Nasal Cannula -Oxygen Flow Rate (L/min) 2 [Pulse Oximetry] -Pulse Oximetry (90-100 %) 90 [Pulse Rate] -Pulse Rate (60-100 beats/min) 104 H [Evaluation] -Activity Tolerance Good [Exercise] -Ambulation Distance (feet) 50 -Ambulation Distance (meters) 15.23 [Comments] -Home Oxygen Evaluation Comments 2lpm at rest and with activity. [Charges] -Treatment Charges O2 Evaluation - Inpatient
--- NOTE | 2022-09-16 10:16 | PCRCNOTE ---
HOME O2 EVALUATION COMPLETED. PT. REQUIRES 2LPM AT REST AND WITH ACTIVITY. SET PT. UP WITH POC THROUGH [facility]. SPOKE WITH RANDALL AND [employer] AND SHE WILL HAVE A TANK DELIVERED TODAY TO THE ROOM. PT. AWARE.
--- NOTE | 2022-09-16 10:18 | PCSTNOTE ---
Please refer to the Bedside Swallow Evaluation in the EMR. Please note, silent aspiration cannot be ruled out at bedside.
--- NOTE | 2022-09-16 17:01 | PM.DS ---
DS: Admitting Diagnosis Discharge Date 09/16/22 Admitting Diagnosis Left leg pain DS: Discharge Diagnosis Discharge Diagnosis (1) Cellulitis of left lower extremity: Code(s): L03.116 - Cellulitis of left lower limb Status: Acute (2) Acute respiratory failure with hypoxia: Code(s): J96.01 - Acute respiratory failure with hypoxia Status: Acute (3) Emphysema lung: Code(s): J43.9 - Emphysema, unspecified Status: Acute (4) Left kidney mass: Code(s): N28.89 - Other specified disorders of kidney and ureter Status: Acute (5) Depression: Code(s): F32.A - Depression, unspecified Status: Acute (6) Chronic back pain: Code(s): M54.9 - Dorsalgia, unspecified; G89.29 - Other chronic pain Status: Acute (7) Overactive bladder: Code(s): N32.81 - Overactive bladder Status: Acute DS: Summary Hospital Course Reason for hospitalization: 67yo female with HTN, depression and ch back pain here for left leg redness and found to have cellulitis.? She was on 2 rounds of Doxycycline prior to admission. Please se H&P for details Hospital Course: The patient presents with left leg erythema and diagnosed with cellulitis. She is allergic to vancomycin and cephalosporins. The patient was placed on Primaxin . The family was concerned about her getting C diff.? Blood cultures are NGTD. She had clinical improvement. Repeat left LE dopplers negative for DVT. street worker evaluated the patient as well. The patient was noted to be hypoxic on admission. CXR on admission showing mid and lower lung zone airspace opacities (consider PNA but no change from 08/27/22). Speech therapy evaluated the patient and there were no issues. Echo pending. Sputum NGTD. HRCT chest showing severe emphysematous changes. Multiple a mild to moderate thoraco lumbar wedge compression fractures of uncertain age. She also had incidental finding of an indeterminate 2.2 cm left midpole left renal mass. CT or MRI recommended but will proceed with US first to see if these are cysts. White count was normal and remained normal. Hemoglobin slightly low but stable. Platelet count remained normal. ABG on admission showed pH of 7.40/40/48 on room air (but very similar to ABG from last month felt to be mixed venous). Patient does provide the history that providers have difficulty picking up her oxygen saturation because of her fingernail [place]. Spoke with respiratory states the patient did have a good waveform and felt that the patient truly was hypoxic. Influenza and COVID swabs were negative. Comprehensive metabolic panel was essentially normal. Home O2 evaluation was performed and it appears patient needs 2 L of oxygen at rest and with activity. She is agreeable to be home with oxygen. She was educated about the risks of smoking your oxygen. She was educated about the risks of any open flame near oxygen. She was strongly encouraged not to smoke with oxygen in place. She voices understanding of this. She overall did well was able be discharged home on 09/16/2022. Status at Discharge Cognitive/behavioral status at discharge: Stable Time Spent with Patient Time attestation: Total time spent providing and/or coordinating discharge services: 35 minutes Time spent: Greater than 30 minutes Exam Narrative: AF 98.5 117/67 84 24 92% 3L Gen - NARD Chest - Bibasilar inspiratory crackles. nml RR CV - RRR S1/S2 Abd - Soft, NT/ND, Positive BS Ext - No pedal edema Psych - Nml mood and affect Skin - left lower fading erythematous patch. Crusting improved with creams. DS: Data Data Completed and Pending Labs on day of discharge: Labs from last 24 hours 09/16/22 09/16/22 09/16/22 05:18 05:18 04:20 WBC 7.6 RBC 4.08 L Hgb 11.9 L Hct 36.4 L MCV 89.2 MCH 29.2 MCHC 32.7 RDW 16.2 H Plt Count 289 MPV 11.4 H Immature Gran % (Auto) 0.1 Neut % (Auto) 66.2
[2022-09-18 16:16] LABS: Pneumococcal Antigen Urine Not Detected (Not Detected)
[2022-09-19 16:23] LABS: Legionella pneumophila Ag Ur Not Detected (Not Detected)
--- NOTE | 2022-09-23 11:51 | PC.NURSE ---
Urine legionella is negative. Urine pneumococcal is negative Blood cx are negative Echo report shown to Dr. Cruz. Dr. Cruz aware of all findings.
--- NOTE | 2022-09-26 07:23 | PC.NURSE ---
Echo report faxed to PCP- Adriana Valencia. Dr. Nancy krause.
== END 2022-09-16 18:01 | disposition home or self-care (01) | DRG 603 ==
LOC: ANHED 17:48 → ANH2MED 18:57
PROVIDERS: Nurse Practitioner; Physician Assistant; Admitting Provider Internal Medicine; Emergency Provider Emergency Medicine; PCP Registered Nurse; Visit Provider Internal Medicine
DX: L03.116 Cellulitis of left lower limb (principal); J43.9 Emphysema, unspecified; I10 Essential (primary) hypertension; N28.89 Other specified disorders of kidney and ureter; N32.81 Overactive bladder; G89.29 Other chronic pain; M54.9 Dorsalgia, unspecified; F32.A Depression, unspecified; R09.02 Hypoxemia; F17.210 Nicotine dependence, cigarettes, uncomplicated; Z20.822 Contact with and (suspected) exposure to COVID-19
CPT/HCPCS: 36415; 36600; 71046; 71250; 80048; 80053; 82375; 82805; 83050; 83605; 83735; 85025; 85027; 87040; 87070; 87205; 87449; 87502; 87899; 92610; 93306; 93971; 94618; 96365; 96367; 96372; 96375; 99285; A9270; C9803; G0378; J0743; J1650; J3475; U0003; U0005

== ENCOUNTER 2022-10-12 16:06 | Emergency (ER) | payer MEDICARE, SELFPAY ==
[2022-10-12 16:55] VITALS: BP 134/73; PULSE 106; RESP 20; TEMP 37.1; O2SAT 99
[2022-10-12 20:50] VITALS: BP 154/71; PULSE 71; RESP 20; O2SAT 91
--- NOTE | 2022-10-12 20:50 | ED.EXTPRO ---
HPI - Extremity Problem General Chief complaint: Extremity Problem,Nontraumatic Stated complaint: BLE cellulitis Time Seen by Provider: 10/12/22 20:07 Source: patient and RN notes reviewed Mode of arrival: ambulatory Limitations: no limitations History of Present Illness HPI Narrative: This is a 67 year old female with history of left leg cellulitis who presents for treatment of cellulitis. Patient states she was admitted to hospital last month and she was given IV antibiotics . She was discharged on bactrim. She has had red, flaky rash to her left leg for over 1 year. She is using over the counter Miconazole ointment since discharge. She reports pain to her leg at site of rash. She denies fever chills. Related Data Home Medications Medication Instructions Recorded Confirmed cyclobenzaprine 10 mg tablet 10 mg PO BID PRN Muscle Spasm 08/27/22 09/13/22 oxybutynin chloride 5 mg 5 mg PO DAILY 08/27/22 09/13/22 tablet,extended release 24 hr oxycodone 10 mg tablet 10 mg PO TID 08/27/22 09/13/22 oxycodone 10 mg tablet,crush 10 mg PO BID 08/27/22 09/13/22 resistant,extended release 12 hr (OxyContin) pregabalin 100 mg capsule 100 mg PO DAILY 08/27/22 09/13/22 sertraline 100 mg tablet 100 mg PO DAILY 08/27/22 09/13/22 amlodipine 10 mg tablet 10 mg PO DAILY 09/13/22 09/13/22 ferrous sulfate 325 mg (65 mg 325 mg PO DAILY 09/13/22 09/13/22 iron) tablet (FeroSul) Allergies Allergy/AdvReac Type Severity Reaction Status Date / Time vancomycin Allergy Rash Verified 10/12/22 16:59 Cephalosporins AdvReac Diarrhea Verified 10/12/22 16:59 Review of Systems Review of Systems: All systems reviewed & are unremarkable except as noted in HPI and below PMFSH Past Medical History Medical History Chronic back pain Depression Hypertension Overactive bladder Surgical History Surgical History H/O tubal ligation tubal repair after a tubal H/O umbilical hernia repair History of appendectomy History of foot surgery History of spinal fusion Family History Family History Other Heart disease Hypertension Social History Social History (Updated 09/14/22 @ 00:44 by Stephanie Shukla NP) Social History: the patient has 2 adopted children and no biological children. Patient smokes 3/4 of a pack a cigarettes daily and has no intention on smoking cessation. The patient does have a nightly beer. The patient is and lives with her . Her is the durable power document manager for healthcare. Code status full code Years smoked: 50 Smoking status: Current every day smoker Tobacco type: cigarettes Alcohol intake: current Drinks per week: 14 Substance use: never Substance use type: does not use Spiritual care concerns: No Exam Const: General: no acute distress and alert Orientation/consciousness: patient oriented x3 Limitations: no limitations HENMT: Head: normal to inspection Eyes: EOM: EOMs intact bilaterally Resp: Effort & Inspection: normal respiratory effort Skin: Wounds: wounds noted Other: left lower leg with dry flaky red rash , no drainage Neuro: General: patient oriented x3, moves all extremities and CN's II-XI intact bilaterally Extrem: Other: mild bilateral lower extremity edema Course Reevaluation(s) Reevaluation #1: Patient presents with what appears to be chronic skin process that may have superimposed infection. I discussed with patient discharge plan and they she should get dermatology referral. Date: 10/12/22 Time: 20:57 Vital Signs Vital signs: Vital Signs Temperature 98.8 F 10/12/22 16:55 Pulse Rate 106 H 10/12/22 16:55 Respiratory Rate 20 10/12/22 16:55 Blood Pressure 134/73 10/12/22 16:55 Pulse Oximetry 99 10/12/22 16:55 Oxygen Delivery Room Air
[2022-10-12] MEDS: CLINDAMYCIN HCL 150 MG CAP 300 MG PO (21:14)
== END 2022-10-12 21:20 | disposition home or self-care (01) ==
PROVIDERS: Emergency Provider General Practice; PCP Registered Nurse
DX: L03.116 Cellulitis of left lower limb (principal); I10 Essential (primary) hypertension; F17.210 Nicotine dependence, cigarettes, uncomplicated
CPT/HCPCS: 99283; A9270

== ENCOUNTER 2022-11-29 05:25 | Inpatient (IN) | payer MEDICARE, SELFPAY ==
[2022-11-29] VITALS (41 sets, daily range): BP systolic 84–151; BP diastolic 50–103; PULSE 76–122; RESP 13–28; TEMP 37.1–38.1; O2SAT 78–100; BMI 20.4
--- NOTE | ~2022-11-29 | XR_ITS ---
XR ERCP ERCP procedure TECHNIQUE: Fluoroscopy used during ERCP performed by [Philipp Norris MD] on 12/05/2022. 203 se conds of fluoroscopy with 5 images captured. FINDINGS: Correlate with procedure note. IMPRESSION: Fluoroscopy used during ERCP. Correlate with procedural note. Reviewed, dictated and finalized at location A. SHARPSHOOTER
--- NOTE | ~2022-11-29 | CT_ITS ---
Clinical Indication: Fever, cough, back pain CT Scan of the Chest, Abdomen, and Pelvis with Contrast: Technique: Contiguous sections were acquired throughout the chest, abdomen, and pelvis after intraven ous administration of 100 cc of Omnipaque 350. Dose reduction technique was used on this scan by mara parker automated exposure control and iterative reconstruction technique. The dose-length product (DL P) was 431.61 mGy-cm. COMPARISON: Chest CT dated 09/15/2022 Findings: There is no evidence of any significant mediastinal, hilar or axillary lymphadenopathy. The mediastin al soft tissues and vascular structures appear normal. There is no evidence of pleural or pericardial effusion. There is severe emphysema with mild bibasilar atelectatic change. There is intrahepatic biliary dilatation with extensive dilatation of the common bile duct to 1 cm in diameter. Gallbladder is distended with probable small gallstones present. Suspected calcified galls tone at the gallbladder neck. The proximal aspect of the main pancreatic duct is mildly prominent, me asuring 5 mm in diameter. No definite obstructing pancreatic head mass identified. The spleen, adrena ls and kidneys are within normal limits. No evidence of aortic aneurysm. No lymphadenopathy. No bowel obstruction or bowel wall thickening. There is no evidence to suggest acute appendicitis. Urinary bladder is unremarkable. No adnexal mass evident. No ascites. Compression fractures of T12 and L1 are present, unchanged. Chronic fracture deformities of the bilat eral pubic rami are present. Impression: Intrahepatic and extrahepatic biliary dilatation, with mildly distended gallbladder. There is also mi ld dilatation the main pancreatic duct. No definite obstructing mass identified in this exam. Correla te with LFTs. Consider MR abdomen and MRCP to evaluate for common duct stone or other obstructing les ion. Cholelithiasis. If there is concern for acute cholecystitis, then consider HIDA scan for further eval uation. Severe emphysema with mild bibasilar atelectatic change. Chronic compression fractures of T12 and L1. Chronic fracture deformities of the bilateral pubic rami . Reviewed, dictated and finalized at [facility]. BURNER REPAIRER Impression: Intrahepatic and extrahepatic biliary dilatation, with mildly distended gallbla dder. There is also mild dilatation the main pancreatic duct. No definite obstr ucting mass identified in this exam. Correlate with LFTs. Consider MR abdomen a nd MRCP to evaluate for common duct stone or other obstructing lesion. Cholelithiasis. If there is concern for acute cholecystitis, then consider HIDA scan for further evaluation. Severe emphysema with mild bibasilar atelectatic change. Chronic compression fractures of T12 and L1. Chronic fracture deformities of th e bilateral pubic rami.
--- NOTE | ~2022-11-29 | XR_ITS ---
EXAMINATION: XR cholangiogram surg 1st inj DATE: 12/06/2022 16:30 INDICATION: Bile leak. TECHNIQUE: 90 fluoroscopic images of the right upper quadrant were obtained during intraoperative cho langiography performed by the surgeon. I was not present in the operating room. Fluoroscopy exposure time was 14 seconds. COMPARISON: ERCP 12/05/2022, MRCP 11/30/2022 FINDINGS: There are surgical clips from cholecystectomy. There is a T-tube in the common duct with ex tension into the right hepatic duct. There is leakage of a small volume of contrast in the area of th e insertion site of the T-tube. The common duct is dilated. There is a filling defect at the lateral aspect of the distal common bile duct. This finding is similar to one of the ERCP images. Contrast pa sses to the duodenum. IMPRESSION: 1. T-tube in expected position. 2. Leakage of a small volume of contrast in the area of the insertion site of the T-tube. 3. Filling defect at the lateral aspect of the distal common bile duct. This finding is similar to on e of the ERCP images and may be the normal appearance of the distal duct rather than a stone. Reviewed, dictated and finalized at location A. ECTOR SHEET METAL PARTS IMPRESSION: 1. T-tube in expected position. 2. Leakage of a small volume of contrast in the area of the insertion site of t he T-tube. 3. Filling defect at the lateral aspect of the distal common bile duct. This fi nding is similar to one of the ERCP images and may be the normal appearance of the distal duct rather than a stone.
--- NOTE | ~2022-11-29 | CT_ITS ---
EXAMINATION: CT abdomen pelvis wo con DATE: 12/12/2022 16:48 INDICATION: Generalized abdominal pain TECHNIQUE: Computed tomography (CT) of the abdomen and pelvis was performed without intravenous contr ast. Automated exposure control and iterative reconstruction technique were employed. Exam dose: 330 .98 mGy-cm total exam DLP. COMPARISON: 11/29/2022 CT chest abdomen pelvis FINDINGS: There is prominent bilateral lower lobe atelectasis/consolidation. Prominent emphysematous changes of the lungs. Normal heart size. No pericardial or pleural effusion. The gallbladder appears absent since 11/29/2022. External bile duct stent and subhepatic percutaneous drainage catheter. Improvement of biliary duct d ilatation since 11/29/2022 No hepatic, splenic, pancreatic or adrenal space-occupying mass lesion. There is extensive calcification of the abdominal aorta and at the origins of the celiac and superior mesenteric and renal arteries as well as extensive calcification of the iliac and femoral arteries. No abdominal aortic aneurysm is evident. There is extensive calcification of the renal arteries and t he renal hilar areas. No right renal mass lesion is evident. Multiple left renal cysts, demonstrated to better advantage on recent 11/29/2022 CT abdomen examination with IV contrast material. No urinary tract calculus or hyd roureteronephrosis is evident. Prominent fluid distention and air-fluid level of the stomach. Air-fluid levels of the colon. No bowel obstruction or intraperitoneal free air is evident. Osteopenia. T12 and L1 compression fractures are again noted. Status post lumbosacral surgical fusion. Bilateral old superior and inferior pubic rami fractures. Status post left total hip arthroplasty. IMPRESSION: Interval cholecystectomy since 11/29/2022. External biliary stent and right upper quadrant percutaneous drainage catheter; interval resolution o f bile duct dilatation since 11/29/2022 Prominent atelectasis the lung bases Emphysema Reviewed, dictated and finalized at [facility]. Reviewed, dictated and finalized at location A. ION SUPPORT SPECIALIST IMPRESSION: Interval cholecystectomy since 11/29/2022. External biliary stent and right upper quadrant percutaneous drainage catheter; interval resolution of bile duct dilatation since 11/29/2022 Prominent atelectasis the lung bases Emphysema
--- NOTE | ~2022-11-29 | XR_ITS ---
EXAMINATION: XR catheter cholangiogram DATE: 12/10/2022 11:26 INDICATION: Bile leak. TECHNIQUE: I injected the T-tube with water-soluble contrast and performed fluoroscopy of the abdomen . Fluoroscopy exposure time was 0.3 minutes. The number of images was 4. COMPARISON: Cholangiogram 12/06/2022 FINDINGS: There is contrast opacification of the T-tube, common bile duct, and duodenum. There is poo r contrast opacification of the hepatic ducts. Skin ciaran are noted. 2 surgical drains overlie the abdomen. There are changes of anterior and posterior fusion procedures in lumbosacral spine. There is a total left hip arthroplasty. There are old fractures of the superior and inferior pubic rami. IMPRESSION: 1. Patent T-tube and common bile duct. Reviewed, dictated and finalized at location A. INSPECTOR
--- NOTE | ~2022-11-29 | CT_ITS ---
Non-contrast Head CT History: Head injury, altered mental status Technique: Axial non-contrast imaging of the brain was performed. Dose reduction technique was used on this scan by utilizing automated exposure control and iterative reconstruction technique. The dose -length product (DLP) was 605.33 mGy-cm. Findings: There is no evidence of intracranial hemorrhage, mass lesion, or acute infarct. Brain par enchyma appears normal. The ventricles and subarachnoid spaces are normal in size. The calvarium ap pears normal. The visualized paranasal sinuses and mastoid air cells are clear. Impression: No significant abnormality seen. Reviewed, dictated and finalized at [facility]. HT FOLLOWER Impression: No significant abnormality seen.
--- NOTE | ~2022-11-29 | CT_ITS ---
EXAMINATION: CTA chest PE protocol DATE: 12/13/2022 13:38 INDICATION: Hypoxia TECHNIQUE: Computed tomography angiography (CTA) of the chest was performed with 100 mL Omnipaque-350 intravenous contrast timed to evaluate the pulmonary arteries. Coronal maximum intensity projection 3D-reconstructions were created by the technologist. The dose-length product (DLP) was 189.90 mGy-cm. Automated exposure control and iterative reconstruction technique were employed. COMPARISON: 11/29/2022 FINDINGS: The pulmonary arteries are well-opacified. No pulmonary embolism is identified. There is se puma emphysema. There are increasing dependent airspace opacities. No pleural effusion or pneumothora x. No pathologically enlarged thoracic lymph nodes are identified. The heart size is normal. There ar e changes of interval cholecystectomy. A surgical drain is present in the gallbladder fossa. Chronic compression fractures of T11 and T12 are noted. IMPRESSION: 1. No pulmonary embolus identified. 2. Increasing dependent airspace opacities, likely atelectasis. 3. Severe emphysema. Reviewed, dictated and finalized at location B. LY PRACTICE PHYSICIAN
--- NOTE | ~2022-11-29 | XR_ITS ---
EXAMINATION: XR UGI water soluble w sbs DATE: 12/02/2022 11:09 INDICATION: Vomiting. TECHNIQUE: The patient drank water-soluble contrast. Fluoroscopy of the esophagus, stomach, and small bowel was performed. Fluoroscopy exposure time was 1.7 minutes. Radiographs of the abdomen were obta ined. The total number of images was 549. COMPARISON: CT abdomen and pelvis 11/29/2022 FINDINGS: UPPER GASTROINTESTINAL SERIES: There is no mass or stricture of the esophagus. There are abnormal tertiary waves in the esophagus. T here is a small sliding hiatal hernia. There was no gastroesophageal reflux with provocative maneuver s. The stomach shows a normal folding pattern. SMALL BOWEL SERIES: The small bowel shows a normal folding pattern. Transit time to the colon was 1.5 hours. There are c hanges of anterior posterior fusion procedures in lumbosacral spine. There is a total left hip arthro plasty. IMPRESSION: 1. Mild esophageal dysmotility. 2. Small sliding hiatal hernia. 3. Normal small bowel series. Reviewed, dictated and finalized at location A. T RAIL TRAIN OPERATOR
--- NOTE | ~2022-11-29 | US_ITS ---
EXAMINATION: US venous doppler [facility] DATE: 12/08/2022 18:11 INDICATION: tachycardia, short of breath . TECHNIQUE: Grayscale images without and with compression and Doppler images of the bilateral lower ex tremity veins were obtained. COMPARISON: None FINDINGS: The right common femoral vein, profunda (deep) femoral vein, femoral vein, popliteal vein, peroneal v ein, posterior tibial veins, gastrocnemius vein, and greater saphenous vein are patent. The left common femoral vein, profunda femoral vein, femoral vein, popliteal vein, peroneal vein, pos terior tibial veins, gastrocnemius vein, and greater saphenous vein are patent. Left inguinal lymphad enopathy. IMPRESSION: 1. Patent bilateral lower extremity veins. No evidence of deep venous thrombosis. 2. Left inguinal lymphadenopathy. Reviewed, dictated and finalized at location K. N PULLER IMPRESSION: 1. Patent bilateral lower extremity veins. No evidence of deep venous thrombos is. 2. Left inguinal lymphadenopathy.
--- NOTE | ~2022-11-29 | XR_ITS ---
XR UGI water soluble wo kub DATE: 12/15/2022 12:40 INDICATION: Gastric distention noted on CT abdomen pelvis examination of 12/12/2022. Evaluate for poss ible gastric outlet obstruction TECHNIQUE: Single contrast examination with water-soluble contrast material COMPARISON: 12/12/2022 CT abdomen pelvis FINDINGS: Marina and surgical drain overlying the right upper abdomen. Status post lumbosacral surgical fusion and left total hip arthroplasty. Small sliding hiatal hernia. No stricture, intraluminal mass lesion, diverticulum or ulceration of th e esophagus is evident. No evidence of gastric intraluminal mass lesion or ulceration or gastric outlet obstruction. The need le bulb is normally shaped. Normal duodenal C-loop. Normal caliber of the proximal jejunum. IMPRESSION: Small sliding hiatal hernia No gastric outlet obstruction Reviewed, dictated and finalized at [facility]. Reviewed, dictated and finalized at location A. CTOR OF HEMOPHILIA
--- NOTE | ~2022-11-29 | XR_ITS ---
Portable chest x-ray Comparison: 09/13/2022 Clinical History: Fever Findings: Probable chronic diffuse interstitial disease. No consolidation or pleural effusion. Card iomediastinal silhouette is stable. Bones and soft tissues are unremarkable. Impression: Probable chronic interstitial disease, similar to prior exam. Reviewed, dictated and finalized at [facility]. LER RENTAL CLERK Impression: Probable chronic interstitial disease, similar to prior exam.
--- NOTE | ~2022-11-29 | MR_ITS ---
EXAMINATION: MR brain/brain stem wo con DATE: 12/02/2022 10:10 INDICATION: Confusion. TECHNIQUE: Magnetic resonance imaging (MRI) of the brain and brainstem was performed without intraven ous contrast. COMPARISON: Head CT 11/29/2022 FINDINGS: There are scattered areas of nonspecific increased T2-weighted signal intensity in the cere bral white matter and rissa. There is no intracranial hemorrhage, acute infarction, or abnormal intrac ranial mass lesion. The ventricles are normal in size. There are likely changes of ocular lens replac ement surgeries. The paranasal sinuses are clear. The mastoid air cells are normal. IMPRESSION: 1. Mild nonspecific cerebral white matter disease and pontine disease, which likely represents chroni c small vessel ischemic disease. Reviewed, dictated and finalized at location A. Y WRITER IMPRESSION: 1. Mild nonspecific cerebral white matter disease and pontine disease, which tigre garcia represents chronic small vessel ischemic disease.
--- NOTE | ~2022-11-29 | US_ITS ---
US venous doppler [facility] DATE: 12/13/2022 18:11 INDICATION: Familial history of deep venous thrombosis. Tachycardia, shortness of breath TECHNIQUE: Real-time and color flow imaging and Doppler analysis of the veins of the lower extremitie s COMPARISON: 12/08/2022 venous duplex examination of lower extremities FINDINGS: The greater saphenous veins are patent. There is spontaneous and phasic flow and normal aug mentation and color flow signal and normal compression of the deep veins of both lower extremities. IMPRESSION: No evidence of deep venous thrombosis of the lower extremities Reviewed, dictated and finalized at Location [facility]. Reviewed, dictated and finalized at location A. MENT MANAGEMENT ANALYST
--- NOTE | ~2022-11-29 | XR_ITS ---
EXAMINATION: XR chest 1V portable INDICATION: Hypoxia TECHNIQUE: Portable AP chest at 1038 hours COMPARISON: 11/29/2022 FINDINGS: There are minimal airspace opacities of the lung bases. Severe emphysema is again noted. A skin fold projects over the right hemithorax. No pleural effusion or pneumothorax. The cardiomediasti nal silhouette is stable. 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 There are partially imaged surgical changes of the right upper quadrant. IMPRESSION: 1. Minimal bibasilar airspace opacities, consistent with atelectasis versus pneumonia. Reviewed, dictated and finalized at location L. REFINER IMPRESSION: 1. Minimal bibasilar airspace opacities, consistent with atelectasis versus pne umonia.
--- NOTE | ~2022-11-29 | XR_ITS ---
EXAMINATION: XR chest 1V portable DATE: 12/13/2022 09:38 INDICATION: Hypoxia. TECHNIQUE: A single frontal view of the chest was obtained. COMPARISON: Chest single view 12/12/2022, CT abdomen and pelvis 12/12/2022 FINDINGS: There are lucencies and coarse interstitial opacities throughout the lungs, consistent with emphysema. There are airspace opacities in the lower lung zones. No pleural effusion or pneumothorax . The heart size is normal. Abdominal skin ciaran are noted. There are drains in the abdomen. IMPRESSION: 1. Airspace opacities in the lower lung zones with improvement on the right, consistent with atelecta sis versus pneumonia. 2. Emphysema. Reviewed, dictated and finalized at location A. NESS AMBASSADOR IMPRESSION: 1. Airspace opacities in the lower lung zones with improvement on the right, co nsistent with atelectasis versus pneumonia. 2. Emphysema.
--- NOTE | ~2022-11-29 | NM_ITS ---
EXAMINATION: NM hepatobiliary wo pharm DATE: 12/03/2022 15:21 INDICATION: Cholelithiasis. COMPARISON: MRCP 11/30/2022 TECHNIQUE: 4.3 mCi Tc-99m mebrofenin (Choletec) was administered intravenously. Scintigraphic images of the abdomen were obtained for one hour. Then, 3 mcg sincalide (Kinevac) IV was administered, and imaging was continued for 30 minutes. FINDINGS: There is normal clearance of radiotracer from the blood pool. There is homogeneous tracer u ptake by the liver. Activity progresses to the bowel. There is no activity in the gallbladder. IMPRESSION: 1. Lack of activity in the gallbladder, consistent with acute cholecystitis. Reviewed, dictated and finalized at location A. ALDEHYDE CONVERTER OPERATOR
--- NOTE | ~2022-11-29 | XR_ITS ---
EXAMINATION: XR catheter cholangiogram DATE: 12/19/2022 09:44 INDICATION: Assess bile duct repair TECHNIQUE: The patient's existing T-tube was injected with 30 mL Omnipaque 240 contrast under fluoros copic observation. A total of 81 images were obtained. The amount of fluoroscopy time used during thi s procedure was 0.3 minutes. Total DAP was 1.673 Gycm^2 COMPARISON: Cholangiogram 12/11/2022 FINDINGS: On initial image the T-tube can be seen projecting over expected location of the right uppe r quadrant. There is an additional surgical drain at the right upper quadrant as well as a couple cho lecystectomy clips. There is contrast opacification of the T-tube, common bile duct, and the duodenum . There is reflux of contrast initially into the right hepatic duct into which the T-tube extends in the right hepatic lobe intrahepatic biliary tree. Subsequently contrast extends also into the left he patic duct and left lobar intrahepatic biliary tree. No evident filling defects or contrast extravasa tion. There are changes of anterior and posterior fusion procedures in lumbosacral spine. IMPRESSION: 1. Patent T-tube and common bile duct. Reviewed, dictated and finalized at location A. UNTANT COST
--- NOTE | ~2022-11-29 | US_ITS ---
Limited Abdominal Sonogram: Real-time sonographic imaging of the right upper quadrant was performed. Clinical History: Intrahepatic biliary dilatation Findings: The liver appears normal with no evidence of mass lesion. There is mild intrahepatic bilia ry dilatation. The gallbladder is well distended, and appears thickening and echogenic stone near the gallbladder neck. No gallbladder wall thickening. The common bile duct measures 11 mm. The pancreas is obscured by bowel gas shadowing. Impression: Mild intrahepatic biliary dilatation. Cholelithiasis. Dilated common bile duct. Reviewed, dictated and finalized at location M. L SORTER Impression: Mild intrahepatic biliary dilatation. Cholelithiasis. Dilated common bile duct.
--- NOTE | ~2022-11-29 | US_ITS ---
EXAMINATION: US arterial ankle brachial ind DATE: 11/30/2022 15:20 INDICATION: Peripheral arterial disease. Chronic wounds. TECHNIQUE: Segmental pressures and plethysmographic and Doppler waveforms of the brachial and lower e xtremity arteries were obtained. COMPARISON: None. FINDINGS: Right and left brachial artery pressures of 146 mm Hg and 134 mm Hg, respectively, are concordant (no rmal difference <= 30 mmHg). The right ankle-brachial index (MAGDIEL) is 0.53 (normal >= 0.9-1.0). The right great toe-brachial index (TBI) is 0.62 (normal >= 0.65). Arterial Doppler waveforms are biphasic at the ankle. The left MAGDIEL is 0.49. The left TBI is 0.86. Arterial Doppler waveforms are noisy. IMPRESSION: 1. Moderately decreased right MAGDIEL and severely decreased left MAGDIEL, consistent with arterial occlusive disease. Reviewed, dictated and finalized at location A. T LINE FEEDER IMPRESSION: 1. Moderately decreased right MAGDIEL and severely decreased left MAGDIEL, consistent w ith arterial occlusive disease.
--- NOTE | ~2022-11-29 | US_ITS ---
US venous doppler [facility] DATE: 12/13/2022 18:13 INDICATION: Family history of deep venous thrombosis TECHNIQUE: Real-time imaging and Doppler analysis of bilateral upper and lower extremities COMPARISON: None FINDINGS: There is spontaneous and phasic flow and normal augmentation and color flow signal and norm al compression where applicable of the internal jugular and subclavian veins, axillary, brachial, bas ilic, cephalic, radial and ulnar veins bilaterally. IMPRESSION: No evidence of deep venous thrombosis of the upper extremities Reviewed, dictated and finalized at Location A. Reviewed, dictated and finalized at location A. OR PHP DEVELOPER
--- NOTE | ~2022-11-29 | MR_ITS ---
EXAMINATION: MR MRCP wo/w con/w 3D wo ind DATE: 11/30/2022 14:43 INDICATION: Dilated common bile duct. TECHNIQUE: Magnetic resonance imaging (MRI) of the abdomen was performed without and with 11 mL Multi Zechariah intravenous contrast. Sequences included coronal T2-weighted FS FSE, coronal T2-weighted FSE, a xial T1-weighted LAVA, coronal FS FIESTA, axial dual-echo T1-weighted SPGR, coronal lava-FLEX, sagitt al T2-weighted FSE, axial T2-weighted FSE, and axial DWI. Thick-slab T2-weighted FSE images were obta ined for magnetic resonance cholangiopancreatography (MRCP). Maximum intensity projection 3-D reconst ructions of the volumetric data were created by the technologist. Postcontrast sequences included cor onal LAVA-flex and time course of axial T1-weighted LAVA. COMPARISON: CT 11/29/2022 FINDINGS: ABDOMEN MRI: The visualized portions of the lung bases demonstrate dependent airspace opacities, cons istent with atelectasis versus pneumonia. The liver and spleen are normal. There are gallstones in th e gallbladder, which is normal in size. The common duct is mildly dilated and measures 4 mm in the charla dy of the pancreas, consistent with chronic pancreatitis. The adrenal glands and right kidney are nor mal. There are cysts in left kidney measuring up to 16 mm. There are no dilated loops of bowel. There are no pathologically enlarged lymph nodes. There is no free intraperitoneal fluid. ABDOMEN MRCP: The common duct is dilated to 9 mm . No choledocholithiasis. IMPRESSION: 1. Mildly dilated common duct. No choledocholithiasis. 2. Cholelithiasis. 3. Dependent airspace opacities in the lungs, consistent with atelectasis versus pneumonia. Reviewed, dictated and finalized at location A. ONS ELECTRICAL ENGINEERING OFFICER IMPRESSION: 1. Mildly dilated common duct. No choledocholithiasis. 2. Cholelithiasis. 3. Dependent airspace opacities in the lungs, consistent with atelectasis versu s pneumonia.
--- NOTE | 2022-11-29 05:38 | ECG_ITS ---
Measurements Intervals [place] Rate: 114 P: 81 IA: 158 QRS: 90 QRSD: 96 T: 54 QT: 313 QTc: 432 Interpretive Statements SINUS TACHYCARDIA LOW QRS VOLTAGE IN THE LIMB LEADS ABNORMAL RHYTHM ECG NO PREVIOUS ECG AVAILABLE FOR COMPARISON Electronically Signed On 11-29-2022 14:47:14 [employer] by Ochoa Gatica M.D.
[2022-11-29] MEDS: SODIUM CHLORIDE 0.9% IV 1,000 ML 999 ML IV CONT ×2 (05:56→07:49)
[2022-11-29 06:12] LABS: Basophils Absolute Auto 0.1 K/mm3 (0.0-0.1); Basophils Percent Auto 0.5 % (0.2-1.2); Eosinophils Absolute Auto 0.2 K/mm3 (0-0.3); Eosinophils Percent Auto 1.3 % (0-4.4); Hematocrit 40.4 % (37.0-47.0); Hemoglobin 13.4 g/dL (12.0-15.0); Immature Granulocyte Absolute 0.06 K/mm3 (0.00-0.031); Immature Granulocyte Percent A 0.5 % (0-0.5); Lymphocytes Absolute Auto 1.08 K/mm3 (0.9-3.2); Lymphocytes Percent Auto 8.2 % (18.3-44.2); Mean Corpuscular HGB Conc 33.2 g/dl (32-36); Mean Corpuscular Hemoglobin 29.6 pg (26-34); Mean Corpuscular Volume 89.4 fl (80-100); Mean Platelet Volume 10.8 fl (7.4-10.4); Monocytes Absolute Auto 0.7 K/mm3 (0.1-0.6); Monocytes Percent Auto 5.1 % (2.6-8.5); Neutrophils Absolute Auto 11.2 K/mm3 (1.3-6.7); Neutrophils Percent Auto 84.4 % (45.5-73.1); Platelet Count Result 348 k/mm3 (150-375); Red Blood Count 4.52 M/mm3 (4.2-5.4); Red Cell Distribution Width 15.8 % (11.5-14.5); White Blood Count 13.2 K/mm3 (4.5-10.0)
--- NOTE | 2022-11-29 06:13 | ED.GENADULT ---
HPI - General Adult General Chief complaint: Shortness of Breath/Dyspnea <Margarita Edwards MD - Last Filed: 11/29/22 07:37> Stated complaint: fever <Margarita Edwards MD - Last Filed: 11/29/22 07:37> Time Seen by Provider: 11/29/22 05:36 <Margarita Edwards MD - Last Filed: 11/29/22 07:37> Source: family, RN notes reviewed and old records reviewed <Margarita Edwards MD - Last Filed: 11/29/22 07:37> Mode of arrival: wheelchair <Margarita Edwards MD - Last Filed: 11/29/22 07:37> Limitations: altered mental status <Margarita Edwards MD - Last Filed: 11/29/22 07:37> History of Present Illness HPI narrative: This is a 67 year old female with history of COPD, right foot drop, chronic back pain who presents for evaluation of confusion. Patient's family at bedside and report patient was confused last night. This morning, they noticed that she had fever so she was brought to ER. Family states patient has had increasing confusion for while. She was determined months ago that she needs oxygen at rest and with activity, but she refused to wear the oxygen. Her family states that she sent it back to [employer]. On arrival to ER patient was found to be 78% on room air and 95% on 2 L . Her records shows that she is to wear 2 L NC at all times. Her family also reports that she fell twice on [place] to due to her right foot drop. They report she did not hit head on anything hard so she was not taken to ER. Patient is oriented to person, age. Family reports cough. PAtient does not report any pain. <Margarita Edwards MD - Last Filed: 11/29/22 07:37> Related Data Home medications: Home Medications Medication Instructions Recorded Confirmed cyclobenzaprine 10 mg tablet 10 mg PO BID PRN Muscle Spasm 08/27/22 11/04/22 oxybutynin chloride 5 mg 5 mg PO DAILY 08/27/22 11/04/22 tablet,extended release 24 hr oxycodone 10 mg tablet 10 mg PO TID 08/27/22 11/04/22 pregabalin 100 mg capsule 100 mg PO DAILY 08/27/22 11/04/22 sertraline 100 mg tablet 100 mg PO DAILY 08/27/22 11/04/22 amlodipine 10 mg tablet 10 mg PO DAILY 09/13/22 11/04/22 ferrous sulfate 325 mg (65 mg 325 mg PO DAILY 09/13/22 11/04/22 iron) tablet (FeroSul) <Margarita Edwards MD - Last Filed: 11/29/22 07:37> Allergies/adverse reactions: Allergies Allergy/AdvReac Type Severity Reaction Status Date / Time vancomycin Allergy Rash Verified 11/29/22 09:00 Cephalosporins AdvReac Diarrhea Verified 11/29/22 09:00 <Margarita Edwards MD - Last Filed: 11/29/22 07:37> Review of Systems Review of Systems: ROS unobtainable: Yes unobtainable due to mental status <Margarita Edwards MD - Last Filed: 11/29/22 07:37> [facility] Past Medical History Medical History: Medical History Chronic back pain Depression Hypertension Overactive bladder <Margarita Edwards MD - Last Filed: 11/29/22 07:37> Surgical History Surgical History: Surgical History H/O tubal ligation tubal repair after a tubal H/O umbilical hernia repair History of appendectomy History of foot surgery History of spinal fusion <Margarita Edwards MD - Last Filed: 11/29/22 07:37> Family History Family History: Family History Other Heart disease Hypertension <Margarita Edwards MD - Last Filed: 11/29/22 07:37> Social History Social History: Social History Social History: the patient has 2 adopted children and no biological children. Patient smokes 3/4 of a pack a cigarettes daily and has no intention on smoking cessation. The patient does have a nightly beer. The patient is and lives with her . Her is the durable power senior trial attorney for healthcare. Code status full code Years smoked: 50 Sm
[2022-11-29 06:19] LABS: Add Urine Microscopic? YES; Appearance Urine Clear (Clear); Bilirubin Urine Negative (Negative); Blood Urine Trace-Intact (Negative); Color Urine Yellow (Yellow); Glucose Urine UA Negative (Negative); Ketones Urine Negative (Negative); Leukocyte Esterase Ur Negative LEU/UL (Negative); Nitrate Urine Negative (Negative); Protein Urine Negative (Negative); Urobilinogen Urine 0.2 mg/dL (<2.0); pH Urine 5.5 (5.0-9.0)
[2022-11-29 06:23] LABS: INR 1.1; Lactic Acid Reflex 1.4 mmol/L (0.7-2.0); Partial Thromboplastin Time 33.7 SECONDS (22.3-36.8); Prothrombin Time 13.5 Seconds (11.1-14.7)
[2022-11-29 06:23] LABS: Alveolar/Arterial O2 Gradient 120.9 mmHg; Base Excess ABG 0.7 mEq/l (+/-2.0); Carboxyhemoglobin 4.1 % THb (0-2.0); Fractional Inspired Oxygen 32 %; HCO3 ABG 25.7 mEq/l (22.0-26.0); Methemoglobin ABG 0.1 %THb (0-1.5); Oxygen Content ABG 14.5 %vol (16.0-22.0); Oxygen Saturation ABG 89.7 % (95.0-100.0); PCO2 ABG 42.7 mmHg (35.0-45.0); PO2 ABG 57.3 mmHg (80.0-100.0); PO2 FiO2 Ratio Arterial Blood 1.79 %; Reduced Hemoglobin 10.5 %THb (0-5.0); Total Hemoglobin 12.1 g/dL (12.0-18.0); pH ABG 7.397 (7.350-7.450)
[2022-11-29 06:24] LABS: Device NASAL CANNULA; Modified Allen's Test Pass; Site Drawn RIGHT RADIAL
[2022-11-29 06:26] LABS: Alanine Aminotransferase 22 U/L (6-35); Albumin Level 4.2 g/dL (3.5-5.1); Alkaline Phosphatase 155 U/L (38-126); Anion Gap 9 mmol/L (8-16); Aspartate Amino Transferase 35 U/L (14-36); Bilirubin,Total 0.4 mg/dL (0.2-1.3); Blood Urea Nitrogen 19 mg/dL (7-17); CRP 5.5 mg/dL (<1.0); Calcium 8.6 mg/dL (8.4-10.2); Carbon Dioxide 25 mmol/L (22-30); Chloride 101 mmol/L (98-107); Estimated CRCL calculation 46 ml/min; Estimated Glomerular Filt Rate > 60; Glucose 108 mg/dL (65-110); Potassium 3.8 mmol/L (3.4-5.0); Sodium 135 mmol/L (137-145)
[2022-11-29 06:29] LABS: Mucus Urine Rare /lpf; RBC Urine 0-2 /hpf (0-2); WBC Urine 0-3 /hpf
[2022-11-29 06:48] LABS: Influenza A QL RT-PCR Negative (Negative); Influenza B QL RT-PCR Negative (Negative); SARS-CoV-2 RNA PCR Negative
--- NOTE | 2022-11-29 06:59 | PC.NURSE ---
Dr. Edwards aware of SpO2 drop to 88% on 6 L/min of n/c while asleep. Pt does raise to 90% when told to take breaths and awoken. Dr. Edwards gave verbal goal of SpO2 at 90%.
--- NOTE | 2022-11-29 07:16 | PC.NURSE ---
Report given to LAVERNE Otero.
[2022-11-29] MEDS: NALOXONE HCL 0.4 MG/ML VIAL IV PUSH (07:49)
[2022-11-29] MEDS: SODIUM CHLORIDE 0.9% IV 1,000 ML 125 ML IV CONT ×2 (08:59→15:02)
--- NOTE | 2022-11-29 13:12 | PM.IMHP ---
H&P: HPI History of Present Illness Date/Time: 11/29/22 13:12 Chief Complaint: Altered mental status Narrative: This is a 67-year-old female patient has a history of COPD, chronic back pain, and right footdrop from a spinal fusion last year. The patient presented to the emergency room today with complaints of confusion. The family was at the bedside and reported that the patient was confused last night as well. The patient was found have chronic hypoxia and was prescribed oxygen at home but the patient refuses to wear it. On arrival to ER the patient was found to be 78% saturation on room air 90 pride% on 2 L. it was noticed that the patient also desatted when she was sleeping. The patient was awake enough to give me some history. The family reported to the emergency room staff that the patient has fallen twice since . She walks with a walker typically and has difficulty walking without it. The patient has not hit her head with the fall so the family did not bring her to the emergency room. The patient is complaining of severe discomfort to her lower extremities which are red and excoriated. White count is 13.2. CRP is 5.5. Urine is negative for UTI. Patient is negative for influenza a B and COVID. Ultrasound of the abdomen was read as mild intrahepatic biliary dilatation. Cholelithiasis. Dilated common bile duct. Patient was started on Zosyn. Chest abdomen pelvis CT was read as the following Intrahepatic and extrahepatic biliary dilatation, with mildly distended gallbladder. There is also mild dilatation the main pancreatic duct. No definite obstructing mass identified in this exam. Correlate with LFTs. Consider MR abdomen and MRCP to evaluate for common duct stone or other obstructing lesion. Cholelithiasis. If there is concern for acute cholecystitis, then consider HIDA scan for further evaluation. Severe emphysema with mild bibasilar atelectatic change. Chronic compression fractures of T12 and L1. Chronic fracture deformities of the bilateral pubic rami. The patient was given IV fluids, IV Tylenol, Narcan, and Zosyn in the emergency room. The patient is being admitted to observation status on the date of service of 11/29/2022. Review of Systems Review of Systems: See HPI All systems reviewed & are unremarkable except as noted in HPI and below Constitutional: Constitutional: Reports as per HPI and Reports no additional constitutional complaints Eyes: Eyes: Reports as per HPI and Reports no additional eye complaints ENT: Reports system reviewed and no additional complaints, except as documented and Reports Normal hearing present Cardiovascular: Cardiovascular: Reports no additional cardiovascular complaints Respiratory: Respiratory: Reports no additional respiratory complaints and Reports no additional respiratory complaints Gastrointestinal: Gastrointestinal: Reports as per HPI and Reports no additional gastrointestinal complaints Musculoskeletal: Musculoskeletal: Reports no additional musculoskeletal complaints Integumentary/Breasts: Skin/Breast: Reports system reviewed and no additional complaints, except as docu and Reports as per HPI Neurologic: Reports system reviewed and no additional complaints, except as documented, Reports as per HPI and Reports Normal hearing present Psychiatric: Psychiatric: Reports no additional psychiatric complaints and Reports as per HPI Endocrine: Endocrine: Reports no additional endocrine complaints Hematologic/Lymphatic: Hematologic/Lymphatic: Reports no additional hematologic/lymphatic complaints Allergic/Immunologic: Allergic/Immunologic: Reports no additional allergic/immunologic complaints [facility] Past Medical History Medical History (Updated 11/29/22 @ 16:27 by Stephanie Shukla NP) Chronic back pain COPD (chronic obstructive pulmonary disease) Depression Foot drop Hypertension Iron deficiency anemia Neuropathy Overactive bladder Surgical History Surgical
[2022-11-29] MEDS: IPRATROPIUM BR 0.02% INH SOLN 0.5 MG/2.5 ML VIAL INHALATION (15:18)
[2022-11-29] MEDS: ALBUTEROL SULFATE NEB 2.5 MG/3 ML INH 5 MG INHALATION (15:18)
--- NOTE | 2022-11-29 16:15 | ADMGEN ---
This patient, [place]al [place], was admitted to [facility] Surg Room 323-01. Patient/family oriented to hospital policies and general routines including ID bracelet, bed and alarms, visiting hours, pain management, procedures, bathroom and other care routines, personal items, smoking policy, room service/diet, and visiting hours. Information on how to activate the Rapid Response Team has been discussed. Patient/Family are encouraged to report perceived risks to care and to ask questions if they do not understand what they are told or what they should do.
[2022-11-30] VITALS (16 sets, daily range): BP systolic 132–146; BP diastolic 61–79; PULSE 77–111; RESP 14–22; TEMP 36.8–37.3; O2SAT 84–96
[2022-11-30] MEDS: SODIUM CHLORIDE 0.9% IV 1,000 ML 125 ML IV CONT ×2 (01:23→09:31)
[2022-11-30] MEDS: ONDANSETRON INJ 4 MG/2 ML VIAL IV PUSH (02:53)
--- NOTE | 2022-11-30 05:58 | PC.NURSE ---
This nurse attempted to call patient's labor relations or personnel negotiator Dc Grove at [phone] to fill out MRI screening form as patient currently has AMS. No answer and unable to leave voicemail as voicemail box was not set up for this number. No other contacts on file to call
--- NOTE | 2022-11-30 07:34 | PM.IMPN ---
Progress Note: A&P Assessment and Plan (1) Sepsis: Qualifiers: Sepsis acute organ dysfunction status: without acute organ dysfunction Sepsis type: sepsis due to unspecified organism Qualified Code(s): A41.9 - Sepsis, unspecified organism Code(s): A41.9 - Sepsis, unspecified organism Status: Acute Assessment and Plan: Patient presented to the ED and noted to have Temp 100.6F, HR 122, RR 28, spO2 78% RA, WBC 13, possible cellulitis or cholecystitis. Lactic acid 1.4 CRP 5.5 Continue Zosyn IV Q6 hours IV hydration Trend CBC and monitor temperature curve PRN acetaminophen for fever. (2) COPD (chronic obstructive pulmonary disease): Qualifiers: COPD type: emphysema Emphysema type: unspecified Qualified Code(s): J43.9 - Emphysema, unspecified Code(s): J44.9 - Chronic obstructive pulmonary disease, unspecified Status: Acute Assessment and Plan: Chronic, in acute exacerbation- wheezing and hypoxia noted on physical exam. Severe emphysema noted on CT scan. She is supposed to wear home O2 and per notes refuses. spO2 78% room air. She was reportedly desaturating while sleeping in the ED. Apnea link monitor pending. Continue scheduled duonebs Resume Incruse Ellipta closer to discharge. Monitor respiratory status (3) Cholelithiasis: Code(s): K80.20 - Calculus of gallbladder without cholecystitis without obstruction Status: Acute Assessment and Plan: CT abdomen and pelvis shows cholelithiasis with intrahepatic and extrahepatic duct dilation, mild gallbladder and pancreatic duct dilation. No definitive mass or obstruction. Abdominal US - mild intrahepatic biliary dilation, cholelithiasis and dilated common bile duct. HIDA and MRCP ordered and pending. No reported abdominal pain. Consider General Surgery consult due to CT scan results. Continue Zosyn IV as above. (4) Cellulitis of leg, left: Code(s): L03.116 - Cellulitis of left lower limb Status: Acute Assessment and Plan: Left leg noted to be red and excoriated. She has previously been treated with Primaxin IV and PO Bactrim following hospitalization 08/2022 and clindamycin PO x10 days 10/2022 from the ED. Continue Zosyn IV Q6 hours. Elevate LLE. Wound care consulted and appreciate recommendations. continue mupirocin ointment BID and add eucerin cream daily. Check ABIs (5) Acute metabolic encephalopathy: Code(s): G93.41 - Metabolic encephalopathy Status: Acute Assessment and Plan: Secondary to acute infection and hypoxia. Continue supplemental O2 to keep sats>91% Continue to treat infection. (6) Neuropathy: Code(s): G62.9 - Polyneuropathy, unspecified Status: Acute Assessment and Plan: Chronic, h/o L4-5 spinal fusion and T12 & L1 compression fractures. Continue cyclobenzaprine PRN, Lyrica scheduled but hold for sedation, and change oxycodone to TID PRN due to confusion and sedation on admission. Patient did receive narcan in the ED per notes (7) Hypertension: Qualifiers: Hypertension type: primary hypertension Qualified Code(s): I10 - Essential (primary) hypertension Code(s): I10 - Essential (primary) hypertension Status: Chronic Assessment and Plan: Chronic, vitals reviewed and BP stable. continue with amlodipine at home dose Monitor hemodynamics. (8) PFO (patent foramen ovale): Code(s): Q21.12 - Patent foramen ovale Status: Chronic Assessment and Plan: PFO noted on echocardiogram in 08/2022. She has chronic hypoxia and needs home O2. She presented with acute confusion which may be secondary to hypoxia versus acute infection. No focal deficits noted. CT head negative for acute or chronic stroke. Consider obtaining MRI. (9) Depression: Code(s): F32.A - Depression, unspecified Status: Chronic Assessment and Plan: Chronic, continue wit
[2022-11-30] MEDS: IPRATROPIUM BR 0.02% INH SOLN 0.5 MG/2.5 ML VIAL INHALATION ×2 (08:35→20:25)
[2022-11-30] MEDS: ALBUTEROL SULFATE NEB 2.5 MG/3 ML INH INHALATION ×2 (08:35→20:25)
[2022-11-30] MEDS: PREGABALIN (*CRX) 50 MG CAPSULE 100 MG PO (09:32)
[2022-11-30] MEDS: FERROUS SULFATE 324 MG TABLET PO (09:33)
[2022-11-30] MEDS: ENOXAPARIN 40 MG/0.4 ML SYRINGE SUB-Q (09:34)
[2022-11-30] MEDS: SERTRALINE HCL 50 MG TABLET 100 MG PO (09:34)
[2022-11-30] MEDS: amLODIPine BESYLATE 5 MG TABLET 10 MG PO (09:34)
[2022-11-30 09:37] LABS: Blood Urea Nitrogen 8 mg/dL (7-17); Calcium 7.9 mg/dL (8.4-10.2); Carbon Dioxide 22 mmol/L (22-30); Estimated CRCL calculation 67 ml/min; Estimated Glomerular Filt Rate > 60; Glucose 111 mg/dL (65-110); Magnesium 1.6 mg/dL (1.6-2.3)
[2022-11-30 09:55] LABS: Basophils Percent Auto 0.4 % (0.2-1.2); Hematocrit 37.5 % (37.0-47.0); Hemoglobin 12.2 g/dL (12.0-15.0); Immature Granulocyte Absolute 0.04 K/mm3 (0.00-0.031); Immature Granulocyte Percent A 0.5 % (0-0.5); Immature Platelet Fraction Pct 4.9 % (0.9-11.2); Lymphocytes Absolute Auto 0.32 K/mm3 (0.9-3.2); Lymphocytes Percent Auto 3.7 % (18.3-44.2); Mean Corpuscular HGB Conc 32.5 g/dl (32-36); Mean Corpuscular Hemoglobin 29.1 pg (26-34); Mean Corpuscular Volume 89.5 fl (80-100); Mean Platelet Volume 11.9 fl (7.4-10.4); Monocytes Absolute Auto 0.2 K/mm3 (0.1-0.6); Neutrophils Percent Auto 93.4 % (45.5-73.1); Platelet Count Result 167 k/mm3 (150-375); Red Blood Count 4.19 M/mm3 (4.2-5.4); Red Cell Distribution Width 15.8 % (11.5-14.5); White Blood Count 8.6 K/mm3 (4.5-10.0)
[2022-11-30 10:21] LABS: Anion Gap 8 mmol/L (8-16); Chloride 109 mmol/L (98-107); Potassium 2.6 mmol/L (3.4-5.0); Sodium 139 mmol/L (137-145)
[2022-11-30 10:42] LABS: Lactic Acid Reflex 1.5 mmol/L (0.7-2.0)
[2022-11-30] MEDS: MAGNESIUM SULF 2 GM/WATER 50ML 2 GM/50 ML BAG IVPB (10:42)
[2022-11-30] MEDS: POTASSIUM CHLORIDE 20 MEQ TABLET 80 MEQ PO (10:42)
[2022-11-30 11:03] LABS: Thyroid Stimulating Hormone Reflex 0.176 uIU/mL (0.465-4.68)
[2022-11-30] MEDS: POTASSIUM CHLORIDE INJ 40 MEQ in SODIUM CHLORIDE 0.9% IV 500 ML 130 MEQ IVPB (12:23)
[2022-11-30 13:47] LABS: Free T4 Free Thyroxine Reflex 2.67 ng/dL (0.78-2.19)
--- NOTE | 2022-11-30 13:52 | PCOTNOTE ---
Attempted occupational therapy evaluation. Patient not present in room, RN reports getting an MRI. Following
--- NOTE | 2022-11-30 13:52 | PCPTNOTE ---
Attempted to see patient for physical therapy evaluation. Pt is off the floor for an MRI. Will continue to follow.
--- NOTE | 2022-11-30 16:13 | PM.CNGS ---
Assessment and Plan Assessment and plan (1) Abnormal findings on imaging of biliary tract: Code(s): R93.2 - Abnormal findings on diagnostic imaging of liver and biliary tract Status: Acute Assessment and Plan: no symptoms to suggest cholecystitis or biliary tract disease. Mental status changes make it very difficult to assess. MRCP has been done but has not been read. HIDA scan is also ordered. Recommend continue antibiotics but relevance of the abnormal biliary imaging is unclear to me at present. (2) Chronic back pain: Code(s): M54.9 - Dorsalgia, unspecified; G89.29 - Other chronic pain Status: Chronic Assessment and Plan: also his history of back fusion and footdrop (3) Opioid dependence with current use: Code(s): F11.20 - Opioid dependence, uncomplicated Status: Chronic Assessment and Plan: 10 mg oxycodone 3 times a day. Also drinks alcohol (4) Altered mental status: Qualifiers: Altered mental status type: somnolence Qualified Code(s): R40.0 - Somnolence Code(s): R41.82 - Altered mental status, unspecified Status: Chronic Assessment and Plan: although patient is awake, her memory and insight are significantly diminished. Could be due to sepsis but her narcotic use, alcohol use, hypoxemia and possibly other factors could be playing a role. CT scan of the head was negative but patient may have had a stroke or multi infarcts. She does have patent foramen ovale. (5) COPD (chronic obstructive pulmonary disease): Qualifiers: COPD type: emphysema Emphysema type: unspecified Qualified Code(s): J43.9 - Emphysema, unspecified Code(s): J44.9 - Chronic obstructive pulmonary disease, unspecified Status: Chronic Assessment and Plan: Hypoxemic, refuses to wear home oxygen. Difficult to say if patient has sepsis and more hypoxemic or if this is baseline. History of Present Illness Consult details Consult date: 11/30/22 Reason for consult: gallstones Requesting physician: Stephanie Shukla NP Narrative: Patient is a 67-year-old woman came to the emergency room early yesterday morning. She apparently had a change in her mental status of confusion that started the night of November 28. The next morning, November 29, she also was having some fever and some shortness of breath. Her family brought her to the emergency room. They reported that she had fell a couple of times on . She also was having a cough. She denied any pain at that time other than back pain. She has a history of severe emphysema and although home oxygen of 2 L per nasal cannula has been prescribed, she refuses to wear this. She did have a fever of 38.1 in the emergency room and was tachycardic with heart rate of 122. She had room air sats of 78%. These improved to 92% with 6 L nasal cannula. White blood cell count was elevated to 13,200. her urinalysis and coags were both normal. Lactate was 1.4. Liver function tests showed an alkaline phosphatase slightly elevated at 155. AST, ALT and total bilirubin were normal. Arterial blood gases showed PO2 of 57.3 on 3 L nasal cannula with 89.7% saturation. Chest x-ray showed just showed chronic interstitial changes of severe COPD. Head CT was unremarkable. Patient was noted to have cellulitis of both legs. She had a CT scan of the chest abdomen and pelvis. This was abnormal in that there was intrahepatic and extrahepatic biliary ductal dilatation with mild distention of the gallbladder and mild dilatation of the main pancreatic duct. Gallstones were also noted. I saw the patient this morning. She is quite confused. She was able to tell me that she was in a hospital and that the year was 2021. She could only relate that she came to the emergency room because her wanted her to. She denies any pain at the present time. She also noted that she is having lower back pain. Patient do
[2022-11-30] MEDS: KCL 40 MEQ/0.9% SOD CHL 1,000 ML 125 ML IV CONT (18:30)
--- NOTE | 2022-11-30 22:35 | PCRCNOTE ---
pt started on apnea link on room air. RN informed
--- NOTE | 2022-11-30 22:43 | PC.NURSE ---
Pt. started on apnea link 11/30/22. Two minutes in, continuous pulse oximetry read 84% on room air. Patient put on 1L of oxygen and satting at 86%. Pt. placed on 3L and satting at 90%.
--- NOTE | 2022-11-30 22:45 | PCRCNOTE ---
Pt required 3 liters NC to maintain a saturation of 90% SP02 or better on monitor.
[2022-12-01] VITALS (11 sets, daily range): BP systolic 154–166; BP diastolic 70–90; PULSE 79–107; RESP 18–20; TEMP 36–36.7; O2SAT 90–97
--- NOTE | 2022-12-01 01:01 | PC.NURSE ---
Addendum entered by Gail Camara RN 12/01/22 01:05: Pt. was also found with oxygen off at this time. Oxygen 3L placed back on patient. Original Note: Found pt. with apnea link monitor and monitor tech off for approx. 20~ minutes. Replaced both monitors on patient and informed RT about apnea link.
[2022-12-01] MEDS: KCL 40 MEQ/0.9% SOD CHL 1,000 ML 125 ML IV CONT ×2 (02:52→13:01)
--- NOTE | 2022-12-01 05:32 | PC.NURSE ---
Pt. found with apnea link off. RT notified.
[2022-12-01 07:41] LABS: Basophils Percent Auto 0.4 % (0.2-1.2); Eosinophils Absolute Auto 0.1 K/mm3 (0-0.3); Eosinophils Percent Auto 0.9 % (0-4.4); Hemoglobin 12.7 g/dL (12.0-15.0); Immature Granulocyte Absolute 0.11 K/mm3 (0.00-0.031); Lymphocytes Absolute Auto 0.66 K/mm3 (0.9-3.2); Lymphocytes Percent Auto 5.8 % (18.3-44.2); Mean Corpuscular HGB Conc 33.4 g/dl (32-36); Mean Corpuscular Hemoglobin 28.5 pg (26-34); Mean Corpuscular Volume 85.4 fl (80-100); Monocytes Absolute Auto 0.5 K/mm3 (0.1-0.6); Monocytes Percent Auto 4.3 % (2.6-8.5); Neutrophils Absolute Auto 9.9 K/mm3 (1.3-6.7); Neutrophils Percent Auto 87.6 % (45.5-73.1); Platelet Count Result 270 k/mm3 (150-375); Red Blood Count 4.45 M/mm3 (4.2-5.4); Red Cell Distribution Width 15.5 % (11.5-14.5); White Blood Count 11.3 K/mm3 (4.5-10.0)
[2022-12-01 07:54] LABS: Anion Gap 7 mmol/L (8-16); Blood Urea Nitrogen 7 mg/dL (7-17); Calcium 8.4 mg/dL (8.4-10.2); Carbon Dioxide 24 mmol/L (22-30); Chloride 109 mmol/L (98-107); Estimated CRCL calculation 67 ml/min; Estimated Glomerular Filt Rate > 60; Glucose 107 mg/dL (65-110); Potassium 3.1 mmol/L (3.4-5.0); Sodium 140 mmol/L (137-145)
[2022-12-01] MEDS: amLODIPine BESYLATE 5 MG TABLET 10 MG PO (08:50)
[2022-12-01] MEDS: EUCERIN CREAM 454 GM JAR 1 APPLIC TOPICAL ×3 (08:51→17:28)
[2022-12-01] MEDS: FERROUS SULFATE 324 MG TABLET PO (08:51)
[2022-12-01] MEDS: PREGABALIN (*CRX) 50 MG CAPSULE 100 MG PO (08:51)
[2022-12-01] MEDS: SERTRALINE HCL 50 MG TABLET 100 MG PO (08:51)
[2022-12-01] MEDS: ENOXAPARIN 40 MG/0.4 ML SYRINGE SUB-Q (08:53)
--- NOTE | 2022-12-01 08:57 | PM.IMPN ---
Progress Note: A&P Assessment and Plan (1) Sepsis: Qualifiers: Sepsis acute organ dysfunction status: without acute organ dysfunction Sepsis type: sepsis due to unspecified organism Qualified Code(s): A41.9 - Sepsis, unspecified organism Code(s): A41.9 - Sepsis, unspecified organism Status: Acute Assessment and Plan: Patient presented to the ED and noted to have Temp 100.6F, HR 122, RR 28, spO2 78% RA, WBC 13, possible cellulitis or cholecystitis. Lactic acid 1.4 CRP 5.5 Continue Zosyn IV Q6 hours continue IV hydration Trend CBC and monitor temperature curve PRN acetaminophen for fever. Stable (2) Cellulitis of leg, left: Code(s): L03.116 - Cellulitis of left lower limb Status: Acute Assessment and Plan: Left leg noted to be red and excoriated. She has previously been treated with Primaxin IV and PO Bactrim following hospitalization 08/2022 and clindamycin PO x10 days 10/2022 from the ED. Continue Zosyn IV Q6 hours. Elevate LLE. Wound care consulted and appreciate recommendations. continue mupirocin ointment BID and add eucerin cream daily. ABIs - severe PAD. L MAGDIEL 0.49, R MAGDIEL 0.53 Outpatient vascular evaluation warranted and discussed with patient and daughter. ASA 81 mg daily added. (3) Cholelithiasis: Code(s): K80.20 - Calculus of gallbladder without cholecystitis without obstruction Status: Acute Assessment and Plan: CT abdomen and pelvis shows cholelithiasis with intrahepatic and extrahepatic duct dilation, mild gallbladder and pancreatic duct dilation. No definitive mass or obstruction. Abdominal US - mild intrahepatic biliary dilation, cholelithiasis and dilated common bile duct. HIDA pending. MRCP with mildly dilated common bile duct, cholelithiasis, no choledocholithiasis 12/01/22 multiple episodes of bilious emesis today. Upper GI series pending. Consider General Surgery consult due to CT scan results. Continue Zosyn IV as above. (4) COPD (chronic obstructive pulmonary disease): Qualifiers: COPD type: emphysema Emphysema type: unspecified Qualified Code(s): J43.9 - Emphysema, unspecified Code(s): J44.9 - Chronic obstructive pulmonary disease, unspecified Status: Chronic Assessment and Plan: Chronic, in acute exacerbation- wheezing and hypoxia noted on physical exam. Severe emphysema noted on CT scan. She is supposed to wear home O2 and per notes refuses. spO2 78% room air. She was reportedly desaturating while sleeping in the ED. Apnea link monitor pending. Continue scheduled duonebs Resume Incruse Ellipta closer to discharge. Monitor respiratory status Reinforce O2 use. (5) Acute metabolic encephalopathy: Code(s): G93.41 - Metabolic encephalopathy Status: Acute Assessment and Plan: Secondary to acute infection and hypoxia. Continue supplemental O2 to keep sats>91% Continue to treat infection. Check MRI brain r/o stoke d/t PFO (6) Neuropathy: Code(s): G62.9 - Polyneuropathy, unspecified Status: Acute Assessment and Plan: Chronic, h/o L4-5 spinal fusion and T12 & L1 compression fractures. Continue cyclobenzaprine PRN, Lyrica scheduled but hold for sedation, and change oxycodone to TID PRN due to confusion and sedation on admission. Patient did receive narcan in the ED per notes (7) Hypertension: Qualifiers: Hypertension type: primary hypertension Qualified Code(s): I10 - Essential (primary) hypertension Code(s): I10 - Essential (primary) hypertension Status: Chronic Assessment and Plan: Chronic, vitals reviewed and BP stable. continue with amlodipine at home dose Monitor hemodynamics. (8) PFO (patent foramen ovale): Code(s): Q21.12 - Patent foramen ovale Status: Chronic Assessment and Plan: PFO noted on echocardiogram in 08/2022. She has chronic hypoxia and needs home O2. She presented wi
[2022-12-01] MEDS: ONDANSETRON INJ 4 MG/2 ML VIAL IV PUSH ×2 (10:32→20:43)
[2022-12-01] MEDS: ASPIRIN 81 MG ENTERIC TABLET PO (10:36)
--- NOTE | 2022-12-01 11:14 | PM.PNGS ---
Progress Note: A&P Assessment and Plan (1) Abnormal findings on imaging of biliary tract: Code(s): R93.2 - Abnormal findings on diagnostic imaging of liver and biliary tract Status: Acute Assessment and Plan: MRCP shows gallstones but no signs of cholecystitis. Biliary ducts are dilated but no tumor or bile duct stones to explain this. Pancreatic duct slightly dilated suggestive of chronic pancreatitis. I do not feel that gall stone disease is playing a role in her current illness and is not the cause of her mental status changes. HIDA scan has been ordered but is unable to be completed as yet. Patient is vomiting today. Her abdominal exam was negative and CT scan did not show a reason for this. Will get upper GI small bowel series with water-soluble contrast to better evaluate. (2) Ischemic rest pain of lower extremity: Code(s): M79.606 - Pain in leg, unspecified; I99.8 - Other disorder of circulatory system Status: Chronic Assessment and Plan: Patient is having rest pain or ischemic pain due to peripheral vascular insufficiency at least in the left leg and possibly also the right leg. She has femoral pulses on each side but both are accompanied by bruits. This may also be playing a role in her mental status changes. (3) Opioid dependence with current use: Code(s): F11.20 - Opioid dependence, uncomplicated Status: Chronic Assessment and Plan: I reviewed with the nurses but patient is not receiving her oxycodone but has it ordered p.r.n.. (4) Altered mental status: Qualifiers: Altered mental status type: somnolence Qualified Code(s): R40.0 - Somnolence Code(s): R41.82 - Altered mental status, unspecified Status: Chronic Assessment and Plan: Persists. Etiology not entirely clear. (5) PFO (patent foramen ovale): Code(s): Q21.12 - Patent foramen ovale Status: Chronic Assessment and Plan: Consider MRI of the brain. CT scan of the head was negative. Subjective Subjective Date/Time Seen: 12/01/22 11:14 Patient reports: still having pain (Mentions back pain only, after questioning legs hurt left more than right), vomiting (Patient denied nausea but while I was examining her legs, she turned and began vomiting.) and other (Still very poor memory and insight.) Interval history: Denies abdominal pain. Review of Systems Review of Systems: ROS unobtainable: Yes unobtainable due to mental status Exam Const: General: cooperative, no acute distress, alert, awake, uncomfortable (Actively vomiting while I was trying to evaluate her) and thin Limitations: altered mental status Cardio: Peripheral pulses: femoral pulses present on the right 1+ (With bruit) and on the left 2+ (With bruit), popliteal pulses not present, posterior tibial pulses not present and dorsalis pedis pulses not present GI: Inspection: non-distended and no obesity GI Palp: Yes Soft to palpation, No Tenderness to palpation present (GI), No Hernia present and No Palpable mass present Skin: Lesions: lesion noted (See leg exam) Extrem: Right lower extremity: lower leg (Epithelial sloughing with erythema and tenderness, less than left) Details: erythema, tenderness and no edema; no unusual warmth Left lower extremity: lower leg (More tender than right leg, ischemic changes similar to right leg) Details: erythema, tenderness and no edema Psych: Speech and movement: Slowed speech present (Psych) Affect: Irritable affect present Attitude: cooperative Insight: Poor insight present (Psych) Judgement: Poor judgement present (Psych) Objective Data Vital Signs Vital Signs: Vital Signs - 24 hr 11/30/22 12:00 11/30/22 15:51 11/30/22 16:02 Temperature 37.1 C Pulse Rate 111 H 96 98 Respiratory Rate 16 Blood Pressure 132/61 Pulse Oximetry 91 Oxygen Delivery Oxygen Flow Rate Fraction of Inspired Oxygen 11/30/22 20:29 11/30/22 21:24 11/02
--- NOTE | 2022-12-01 11:22 | PCOTNOTE ---
Attempted OT evaluation, patient has been throwing up and states she is still nauseas and declines OT evaluation at this time. RN aware.
[2022-12-01] MEDS: PROMETHAZINE HCL 25 MG/ML AMPUL 12.5 MG IV PUSH (13:04)
[2022-12-01] MEDS: POTASSIUM CHLORIDE INJ 40 MEQ in SODIUM CHLORIDE 0.9% IV 500 ML 130 MEQ IVPB (13:29)
[2022-12-01] MEDS: ALBUTEROL SULFATE NEB 2.5 MG/3 ML INH INHALATION (15:13)
[2022-12-01] MEDS: IPRATROPIUM BR 0.02% INH SOLN 0.5 MG/2.5 ML VIAL INHALATION (15:13)
[2022-12-01] MEDS: oxyCODONE HCL (*CRX) 5 MG TAB IR 10 MG PO (20:42)
[2022-12-01] MEDS: HYDROCORTISONE 1% 30 GM CREAM 1 APPLIC TOPICAL (21:04)
[2022-12-02] VITALS (8 sets, daily range): BP systolic 138–165; BP diastolic 55–86; PULSE 52–132; RESP 16–20; TEMP 36.4–37.2; O2SAT 91–97
--- NOTE | 2022-12-02 02:39 | PCRCNOTE ---
pt refused [place].
[2022-12-02 07:02] LABS: Basophils Absolute Auto 0.1 K/mm3 (0.0-0.1); Basophils Percent Auto 0.4 % (0.2-1.2); Eosinophils Absolute Auto 0.4 K/mm3 (0-0.3); Eosinophils Percent Auto 3.5 % (0-4.4); Hemoglobin 13.8 g/dL (12.0-15.0); Immature Granulocyte Absolute 0.07 K/mm3 (0.00-0.031); Immature Granulocyte Percent A 0.6 % (0-0.5); Lymphocytes Absolute Auto 0.94 K/mm3 (0.9-3.2); Mean Corpuscular HGB Conc 33.7 g/dl (32-36); Mean Corpuscular Hemoglobin 28.9 pg (26-34); Mean Corpuscular Volume 85.8 fl (80-100); Mean Platelet Volume 11.2 fl (7.4-10.4); Monocytes Absolute Auto 0.8 K/mm3 (0.1-0.6); Monocytes Percent Auto 6.8 % (2.6-8.5); Neutrophils Absolute Auto 9.5 K/mm3 (1.3-6.7); Neutrophils Percent Auto 80.7 % (45.5-73.1); Platelet Count Result 292 k/mm3 (150-375); Red Blood Count 4.78 M/mm3 (4.2-5.4); Red Cell Distribution Width 15.6 % (11.5-14.5); White Blood Count 11.7 K/mm3 (4.5-10.0)
[2022-12-02 07:25] LABS: Blood Urea Nitrogen 13 mg/dL (7-17); Calcium 8.5 mg/dL (8.4-10.2); Carbon Dioxide 25 mmol/L (22-30); Cholesterol 157 mg/dL (0-200); Estimated CRCL calculation 58 ml/min; Estimated Glomerular Filt Rate > 60; Glucose 130 mg/dL (65-110); HDL Direct 36 mg/dL; Triglycerides 168 mg/dL (<150)
[2022-12-02 07:29] LABS: Anion Gap 7 mmol/L (8-16); Chloride 108 mmol/L (98-107); Potassium 3.1 mmol/L (3.4-5.0); Sodium 140 mmol/L (137-145)
[2022-12-02 07:32] LABS: LDL Cholesterol Direct 84 mg/dL
--- NOTE | 2022-12-02 10:13 | PM.IMPN ---
Progress Note: A&P Assessment and Plan (1) Sepsis: Qualifiers: Sepsis acute organ dysfunction status: without acute organ dysfunction Sepsis type: sepsis due to unspecified organism Qualified Code(s): A41.9 - Sepsis, unspecified organism Code(s): A41.9 - Sepsis, unspecified organism Status: Acute Assessment and Plan: Patient presented to the ED and noted to have Temp 100.6F, HR 122, RR 28, spO2 78% RA, WBC 13, possible cellulitis or cholecystitis. Lactic acid 1.4 CRP 5.5 Continue Zosyn IV Q6 hours continue IV hydration Trend CBC and monitor temperature curve PRN acetaminophen for fever. Stable (2) Cellulitis of leg, left: Code(s): L03.116 - Cellulitis of left lower limb Status: Acute Assessment and Plan: Left leg noted to be red and excoriated. She has previously been treated with Primaxin IV and PO Bactrim following hospitalization 08/2022 and clindamycin PO x10 days 10/2022 from the ED. Continue Zosyn IV Q6 hours. Elevate LLE. Wound care consulted and appreciate recommendations. continue mupirocin ointment BID and add eucerin cream daily. ABIs - severe PAD. L MAGDIEL 0.49, R MAGDIEL 0.53 Outpatient vascular evaluation warranted and discussed with patient and daughter. ASA 81 mg daily added. 12/02/22 slightly improved. Will transition to oral antibiotics if HIDA scan is negative for acute cholecystitis. (3) Cholelithiasis: Code(s): K80.20 - Calculus of gallbladder without cholecystitis without obstruction Status: Acute Assessment and Plan: CT abdomen and pelvis shows cholelithiasis with intrahepatic and extrahepatic duct dilation, mild gallbladder and pancreatic duct dilation. No definitive mass or obstruction. Abdominal US - mild intrahepatic biliary dilation, cholelithiasis and dilated common bile duct. HIDA pending. MRCP with mildly dilated common bile duct, cholelithiasis, no choledocholithiasis 12/01/22 multiple episodes of bilious emesis today. Upper GI series pending. Consider General Surgery consult due to CT scan results. Continue Zosyn IV as above. (4) COPD (chronic obstructive pulmonary disease): Qualifiers: COPD type: emphysema Emphysema type: unspecified Qualified Code(s): J43.9 - Emphysema, unspecified Code(s): J44.9 - Chronic obstructive pulmonary disease, unspecified Status: Chronic Assessment and Plan: Chronic, in acute exacerbation- wheezing and hypoxia noted on physical exam. Severe emphysema noted on CT scan. She is supposed to wear home O2 and per notes refuses. spO2 78% room air. She was reportedly desaturating while sleeping in the ED. Apnea link monitor pending. Continue scheduled duonebs Resume Incruse Ellipta closer to discharge. Monitor respiratory status Reinforce O2 use. Stable. (5) Acute metabolic encephalopathy: Code(s): G93.41 - Metabolic encephalopathy Status: Acute Assessment and Plan: Secondary to acute infection and hypoxia. Continue supplemental O2 to keep sats>91% Continue to treat infection. MRI brain r/o stoke d/t PFO negative for acute or chronic infarct. (6) Neuropathy: Code(s): G62.9 - Polyneuropathy, unspecified Status: Acute Assessment and Plan: Chronic, h/o L4-5 spinal fusion and T12 & L1 compression fractures. Continue cyclobenzaprine PRN, Lyrica scheduled but hold for sedation, and change oxycodone to TID PRN due to confusion and sedation on admission. Patient did receive narcan in the ED per notes Likely some component of claudication. (7) Hypertension: Qualifiers: Hypertension type: primary hypertension Qualified Code(s): I10 - Essential (primary) hypertension Code(s): I10 - Essential (primary) hypertension Status: Chronic Assessment and Plan: Chronic, vitals reviewed and BP stable. continue with amlodipine at home dose Monitor hemodynamics. (8) PFO (patent foramen ovale):
[2022-12-02] MEDS: ASPIRIN 81 MG ENTERIC TABLET PO (10:28)
[2022-12-02] MEDS: HYDROCORTISONE 1% 30 GM CREAM 1 APPLIC TOPICAL ×2 (10:28→21:56)
[2022-12-02] MEDS: FERROUS SULFATE 324 MG TABLET PO (10:28)
[2022-12-02] MEDS: ENOXAPARIN 40 MG/0.4 ML SYRINGE SUB-Q (10:29)
[2022-12-02] MEDS: amLODIPine BESYLATE 5 MG TABLET 10 MG PO (10:29)
[2022-12-02] MEDS: SERTRALINE HCL 50 MG TABLET 100 MG PO (10:29)
[2022-12-02] MEDS: EUCERIN CREAM 454 GM JAR 1 APPLIC TOPICAL ×3 (10:30→18:55)
[2022-12-02] MEDS: PREGABALIN (*CRX) 50 MG CAPSULE 100 MG PO (10:34)
[2022-12-02 10:37] LABS: Magnesium 1.5 mg/dL (1.6-2.3)
--- NOTE | 2022-12-02 12:51 | PM.PNGS ---
Progress Note: A&P Assessment and Plan (1) Vomiting and diarrhea: Code(s): R11.10 - Vomiting, unspecified; R19.7 - Diarrhea, unspecified Status: Acute Assessment and Plan: patient tells me today that she was having a lot of vomiting before coming to the hospital. With her mental status changes earlier, she was unable to relate this. Etiology of the emesis is unclear but patient does seem improved and wants liquids particularly a diet Coke. Upper GI small bowel series did not show a cause for these GI symptoms. Advance to full liquids and monitor. Patient does not admit to having had any abdominal pain. (2) Altered mental status: Qualifiers: Altered mental status type: somnolence Qualified Code(s): R40.0 - Somnolence Code(s): R41.82 - Altered mental status, unspecified Status: Chronic Assessment and Plan: Much improved. Etiology unclear. Discussed with hospitalist (3) Cholelithiasis: Code(s): K80.20 - Calculus of gallbladder without cholecystitis without obstruction Status: Acute Assessment and Plan: MRCP did not show suggest cholecystitis or obstructing biliary stone. Doubt cholecystitis is the cause for pre since vomiting and present illness. Discussed with hospitalist, Anna De La Fuente. (4) Ischemic rest pain of lower extremity: Code(s): M79.606 - Pain in leg, unspecified; I99.8 - Other disorder of circulatory system Status: Chronic Assessment and Plan: Patient has end-stage ischemic peripheral vascular disease to both lower extremities, the left is worse than the right. Probably needs to follow-up with vascular surgeon after discharge at her earliest opportunity. Subjective Subjective Date/Time Seen: 12/02/22 12:51 Patient reports: feels better, pain is less, diarrhea, vomiting and afebrile Interval history: patient's mental status has improved. She remembers vomiting yesterday when I was here to see her. She is also able to recall other historical items she was unable to remember previously. She now discloses that she was having a lot of vomiting before coming to the hospital. She has continued to have diarrhea and some vomiting although once liquids now and was able to tolerate most of the contrast for her small bowel series. She does not like potassium either elix or pills. It makes her nauseated. Review of Systems Review of Systems: All systems reviewed & are unremarkable except as noted in HPI and below ( HPI) Exam Const: General: cooperative, comfortable, no acute distress, alert, awake and thin Orientation/consciousness: oriented to place and No confusion GI: Inspection: non-distended GI Palp: Yes Soft to palpation, No Tenderness to palpation present (GI), No Hepatosplenomegaly present, No Hernia present and No Palpable mass present Auscultation: normal bowel sounds Neuro: General: oriented to place Psych: Speech and movement: Normal speech and movement present Affect: normal affect Attitude: cooperative Thought content: Yes Normal thought content present Insight: Good insight present (Psych) Judgement: Good judgement present (Psych) Objective Data Vital Signs Vital Signs: Vital Signs - 24 hr 12/01/22 14:00 12/01/22 15:13 12/01/22 16:00 Temperature 36.3 C L Pulse Rate 96 92 103 H Respiratory Rate 20 18 Blood Pressure 158/87 H Pulse Oximetry 92 12/01/22 20:06 12/01/22 20:20 12/02/22 00:00 Temperature 36.0 C L Pulse Rate 107 H 101 H 78 Respiratory Rate 18 Blood Pressure 166/90 H Pulse Oximetry 90 12/02/22 03:24 12/02/22 04:00 Temperature 36.4 C L Pulse Rate 52 L 58 L Respiratory Rate 16 Blood Pressure 165/63 H Pulse Oximetry 91 Intake/Output Intake/Output: Intake & Output 11/29/22 11/30/22 12/01/22 12/02/22 23:59 23:59 23:59 23:59 Intake Total 4350 2009 3040 290 Balance 4350 2009 3040 290 Meds/Results Medications: Active Medications Generic N
[2022-12-02] MEDS: POTASSIUM CHLORIDE 20 MEQ TABLET 60 MEQ PO (13:12)
[2022-12-02] MEDS: MAGNESIUM SULFATE 3GM/D5W100ML 3 GM/100 ML BAG IVPB (13:12)
[2022-12-02] MEDS: KCL 40 MEQ/0.9% SOD CHL 1,000 ML 125 ML IV CONT ×3 (13:13→14:42)
--- NOTE | 2022-12-02 14:21 | ECG_ITS ---
Measurements Intervals [place] Rate: 108 P: 86 MT: 147 QRS: 82 QRSD: 83 T: 73 QT: 333 QTc: 447 Interpretive Statements SINUS TACHYCARDIA FREQUENT ATRIAL PREMATURE COMPLEXES LEFT ATRIAL ENLARGEMENT BASELINE ARTIFACT- I, II, III, AVR, AVL, AVF ABNORMAL ECG COMPARED TO ECG 11/29/2022 05:47:47 NO SIGNIFICANT CHANGES Electronically Signed On 12-02-2022 15:40:48 STONE HAND by Michael Cannon D.O.
[2022-12-02] MEDS: METOPROLOL TARTRATE INJ 5 MG/5 ML VIAL IV PUSH (14:43)
[2022-12-02] MEDS: oxyCODONE HCL (*CRX) 5 MG TAB IR 10 MG PO ×2 (15:03→22:08)
--- NOTE | 2022-12-02 22:22 | PCRCNOTE ---
pt refusing UPD treatments for 1999 and 199 on 12/02. pt informed to call if in need of treatment.
[2022-12-03] VITALS (11 sets, daily range): BP systolic 120–162; BP diastolic 79–89; PULSE 93–128; RESP 16–22; TEMP 36.4–36.9; O2SAT 91–97
[2022-12-03] MEDS: KCL 40 MEQ/0.9% SOD CHL 1,000 ML 125 ML IV CONT ×2 (01:39→10:14)
[2022-12-03 07:27] LABS: Anion Gap 5 mmol/L (8-16); Blood Urea Nitrogen 15 mg/dL (7-17); Calcium 8.3 mg/dL (8.4-10.2); Carbon Dioxide 21 mmol/L (22-30); Chloride 115 mmol/L (98-107); Estimated CRCL calculation 58 ml/min; Estimated Glomerular Filt Rate > 60; Glucose 99 mg/dL (65-110); Potassium 4.5 mmol/L (3.4-5.0); Sodium 141 mmol/L (137-145)
[2022-12-03 07:37] LABS: Basophils Absolute Auto 0.1 K/mm3 (0.0-0.1); Basophils Percent Auto 0.7 % (0.2-1.2); Eosinophils Absolute Auto 0.9 K/mm3 (0-0.3); Eosinophils Percent Auto 8.2 % (0-4.4); Hematocrit 41.3 % (37.0-47.0); Hemoglobin 13.5 g/dL (12.0-15.0); Immature Granulocyte Absolute 0.04 K/mm3 (0.00-0.031); Immature Granulocyte Percent A 0.4 % (0-0.5); Lymphocytes Absolute Auto 1.33 K/mm3 (0.9-3.2); Lymphocytes Percent Auto 11.9 % (18.3-44.2); Mean Corpuscular HGB Conc 32.7 g/dl (32-36); Mean Corpuscular Hemoglobin 28.2 pg (26-34); Mean Corpuscular Volume 86.2 fl (80-100); Mean Platelet Volume 11.3 fl (7.4-10.4); Monocytes Percent Auto 9.2 % (2.6-8.5); Neutrophils Absolute Auto 7.8 K/mm3 (1.3-6.7); Neutrophils Percent Auto 69.6 % (45.5-73.1); Platelet Count Result 276 k/mm3 (150-375); Red Blood Count 4.79 M/mm3 (4.2-5.4); Red Cell Distribution Width 15.7 % (11.5-14.5); White Blood Count 11.2 K/mm3 (4.5-10.0)
--- NOTE | 2022-12-03 08:38 | PM.IMPN ---
Progress Note: A&P Assessment and Plan (1) Sepsis: Qualifiers: Sepsis acute organ dysfunction status: without acute organ dysfunction Sepsis type: sepsis due to unspecified organism Qualified Code(s): A41.9 - Sepsis, unspecified organism Code(s): A41.9 - Sepsis, unspecified organism Status: Acute Assessment and Plan: Patient presented to the ED and noted to have Temp 100.6F, HR 122, RR 28, spO2 78% RA, WBC 13, possible cellulitis or cholecystitis. Lactic acid 1.4 CRP 5.5 Continue Zosyn IV Q6 hours, started 11/29 continue IV hydration Trend CBC and monitor temperature curve PRN acetaminophen for fever. Resolved. (2) Cellulitis of leg, left: Code(s): L03.116 - Cellulitis of left lower limb Status: Acute Assessment and Plan: Left leg noted to be red and excoriated. She has previously been treated with Primaxin IV and PO Bactrim following hospitalization 08/2022 and clindamycin PO x10 days 10/2022 from the ED. Continue Zosyn IV Q6 hours. Elevate LLE. Wound care consulted and appreciate recommendations. continue mupirocin ointment BID and add eucerin cream daily. ABIs - severe PAD. L MAGDIEL 0.49, R MAGDIEL 0.53 Outpatient vascular evaluation warranted and discussed with patient and daughter. ASA 81 mg daily added. 12/02/22 slightly improved. Will transition to oral antibiotics if HIDA scan is negative for acute cholecystitis. 12/03/22 antibiotic day 5 of 10. (3) Cholelithiasis: Qualifiers: Cholelithiasis location: gallbladder Code(s): K80.20 - Calculus of gallbladder without cholecystitis without obstruction Status: Chronic Assessment and Plan: CT abdomen and pelvis shows cholelithiasis with intrahepatic and extrahepatic duct dilation, mild gallbladder and pancreatic duct dilation. No definitive mass or obstruction. Abdominal US - mild intrahepatic biliary dilation, cholelithiasis and dilated common bile duct. HIDA ordered on admission. MRCP with mildly dilated common bile duct, cholelithiasis, no choledocholithiasis 12/01/22 multiple episodes of bilious emesis today. Upper GI series without obstruction. Consider General Surgery consult due to CT scan results. Continue Zosyn IV as above. 12/03/22 Waiting for HIDA scan. Antibiotic day 5 of 7. Can be stopped if acute cholecystitis is ruled out. (4) COPD (chronic obstructive pulmonary disease): Qualifiers: COPD type: emphysema Emphysema type: unspecified Qualified Code(s): J43.9 - Emphysema, unspecified Code(s): J44.9 - Chronic obstructive pulmonary disease, unspecified Status: Chronic Assessment and Plan: Chronic, in acute exacerbation- wheezing and hypoxia noted on physical exam. Severe emphysema noted on CT scan. She is supposed to wear home O2 and per notes refuses. spO2 78% room air. She was reportedly desaturating while sleeping in the ED. Apnea link monitor pending. Continue scheduled duonebs Resume Incruse Ellipta closer to discharge. Monitor respiratory status Reinforced O2 use. Stable. (5) Acute metabolic encephalopathy: Code(s): G93.41 - Metabolic encephalopathy Status: Acute Assessment and Plan: Secondary to acute infection and hypoxia. Continue supplemental O2 to keep sats>91% Continue to treat infection. MRI brain r/o stoke d/t PFO negative for acute or chronic infarct. Improved. Appears at baseline (6) Neuropathy: Code(s): G62.9 - Polyneuropathy, unspecified Status: Acute Assessment and Plan: Chronic, h/o L4-5 spinal fusion and T12 & L1 compression fractures. Continue cyclobenzaprine PRN, Lyrica scheduled but hold for sedation, and change oxycodone to TID PRN due to confusion and sedation on admission. Patient did receive narcan in the ED per notes Likely some component of claudication. (7) Hypertension: Qualifiers: Hypertension type: primary hypertension Qualified Code(s): I10 -
[2022-12-03] MEDS: ATORVASTATIN 40 MG TABLET PO (10:10)
[2022-12-03] MEDS: FERROUS SULFATE 324 MG TABLET PO (10:10)
[2022-12-03] MEDS: SERTRALINE HCL 50 MG TABLET 100 MG PO (10:10)
[2022-12-03] MEDS: amLODIPine BESYLATE 5 MG TABLET 10 MG PO (10:10)
[2022-12-03] MEDS: EUCERIN CREAM 454 GM JAR 1 APPLIC TOPICAL (10:11)
[2022-12-03] MEDS: cilostazoL 100 MG TABLET PO ×2 (10:11→18:28)
[2022-12-03] MEDS: HYDROCORTISONE 1% 30 GM CREAM 1 APPLIC TOPICAL (10:11)
[2022-12-03] MEDS: ENOXAPARIN 40 MG/0.4 ML SYRINGE SUB-Q (10:11)
[2022-12-03] MEDS: ASPIRIN 81 MG ENTERIC TABLET PO (10:11)
[2022-12-03] MEDS: PREGABALIN (*CRX) 50 MG CAPSULE 100 MG PO (10:14)
--- NOTE | 2022-12-03 11:35 | PC.NURSE ---
O2 sats 96% after one hour on RA. Oxygen at 1L not replaced at this time.
[2022-12-03] MEDS: METOPROLOL TARTRATE INJ 5 MG/5 ML VIAL IV PUSH (11:54)
[2022-12-03] MEDS: MORPHINE SULFATE (*CRX) 2 MG/ML INJ IV PUSH (14:45)
[2022-12-03] MEDS: oxyCODONE HCL (*CRX) 5 MG TAB IR 10 MG PO ×2 (16:22→23:30)
[2022-12-04] VITALS (15 sets, daily range): BP systolic 100–176; BP diastolic 67–111; PULSE 94–114; RESP 14–22; TEMP 36.2–36.7; O2SAT 90–97
[2022-12-04] MEDS: KCL 40 MEQ/0.9% SOD CHL 1,000 ML 125 ML IV CONT ×2 (02:30→19:01)
[2022-12-04] MEDS: cilostazoL 100 MG TABLET PO (06:04)
--- NOTE | 2022-12-04 08:10 | PM.PNGS ---
Progress Note: A&P Assessment and Plan (1) Cholelithiasis and acute cholecystitis with obstruction: Code(s): K80.01 - Calculus of gallbladder with acute cholecystitis with obstruction Status: Acute Assessment and Plan: Although patient doing better now, it is possible that cholecystitis with cystic duct obstruction from a stone is the cause of her vomiting and present illness. I discussed this with her. I have recommended going ahead with laparoscopic cholecystectomy. I described the procedure and the usual recovery. She agrees to go ahead. Will plan to proceed with this today. If all goes well, plan home tomorrow. (2) COPD (chronic obstructive pulmonary disease): Qualifiers: COPD type: emphysema Emphysema type: unspecified Qualified Code(s): J43.9 - Emphysema, unspecified Code(s): J44.9 - Chronic obstructive pulmonary disease, unspecified Status: Chronic Assessment and Plan: Severe emphysema, increases surgical risks (3) Iron deficiency anemia: Code(s): D50.9 - Iron deficiency anemia, unspecified Status: Chronic Assessment and Plan: Increases surgical risk (4) Ischemic rest pain of lower extremity: Code(s): M79.606 - Pain in leg, unspecified; I99.8 - Other disorder of circulatory system Status: Chronic Assessment and Plan: Explained that this is a separate problem and will need to be addressed with the vascular surgeon after discharge. This also increases surgical risk and is a sign of significant vascular disease which increases surgical risks. Subjective Subjective Date/Time Seen: 12/04/22 08:10 Patient reports: feels better, pain is less, tolerating liquids well, diarrhea and afebrile Review of Systems Review of Systems: All systems reviewed & are unremarkable except as noted in HPI and below (HPI and those items noted below) Constitutional: Constitutional: Denies chills and Denies fever(s) Cardiovascular: Cardiovascular: Denies chest pain, Denies diaphoresis, Denies dyspnea and Denies paroxysmal nocturnal dyspnea Respiratory: Respiratory: Denies chest congestion, Denies cough and Denies dyspnea Integumentary/Breasts: Skin/Breast: Denies lesions and Denies rash Exam Const: General: comfortable and no acute distress; No confusion Orientation/consciousness: patient oriented x3 and No confusion GI: Inspection: non-distended GI Palp: Yes Soft to palpation, Yes Tenderness to palpation present (GI) (Minimal diffuse tenderness no focal findings), No Guarding due to palpation present (GI) and No Rebound tenderness present Auscultation: normal bowel sounds Neuro: General: patient oriented x3, no focal motor deficits and No confusion Extrem: General: no calf tenderness and no edema Psych: Affect: normal affect Insight: Good insight present (Psych) Judgement: Good judgement present (Psych) Objective Data Vital Signs Vital Signs: Vital Signs - 24 hr 12/03/22 11:54 12/03/22 15:00 12/03/22 12:00 Temperature 36.9 C Pulse Rate 128 H 108 H 108 H Respiratory Rate 16 Blood Pressure 120/79 Pulse Oximetry 91 Oxygen Delivery 12/03/22 16:00 12/03/22 20:08 12/03/22 20:00 Temperature Pulse Rate 108 H Respiratory Rate Blood Pressure Pulse Oximetry 92 Oxygen Delivery Room Air Room Air 12/03/22 20:00 12/03/22 22:00 12/04/22 00:00 Temperature 36.4 C L Pulse Rate 100 107 H 109 H Respiratory Rate 18 Blood Pressure 152/89 H Pulse Oximetry 97 Oxygen Delivery 12/04/22 06:00 Temperature 36.6 C Pulse Rate 113 H Respiratory Rate 17 Blood Pressure 176/77 H Pulse Oximetry 92 Oxygen Delivery Intake/Output Intake/Output: Intake & Output 12/01/22 12/02/22 12/03/22 12/04/22 23:59 23:59 23:59 23:59 Intake Total 4040 3980 2950 50 Balance 4040 3980 2950 50 Meds/Results Medications: Active Medications Generic Name Dose Route Start Last Admin Trade Name Nick Camargo
--- NOTE | 2022-12-04 08:30 | P.PNIM_ITS ---
Progress Note: A&P Assessment and Plan (1) Sepsis: Qualifiers: Sepsis acute organ dysfunction status: without acute organ dysfunction Sepsis type: sepsis due to unspecified organism Qualified Code(s): A41.9 - S epsis, unspecified organism Code(s): A41.9 - Sepsis, unspecified organism Status: Acute Assessment and Plan: Patient presented to the ED and noted to have Temp 100.6F, HR 122, RR 28, spO2 78% RA, WBC 13, possible cellulitis or cholecystitis. * Lactic acid 1.4 * CRP 5.5 * Continue Zosyn IV Q6 hours, started 11/29 * continue IV hydration * Trend CBC and monitor temperature curve * PRN acetaminophen for fever. * Resolved. (2) Cellulitis of leg, left: Code(s): L03.116 - Cellulitis of left lower limb Status: Acute Assessment and Plan: Left leg noted to be red and excoriated. She has previously been treated with Primaxin IV and PO Bactrim following hospitalization 08/2022 and clindamycin PO x10 days 10/2022 from the ED. * Continue Zosyn IV Q6 hours. * Elevate LLE. * Wound care consulted and appreciate recommendations. * continue mupirocin ointment BID and add eucerin cream daily. * ABIs - severe PAD. L MAGDIEL 0.49, R MAGDIEL 0.53 Outpatient vascular evaluation warranted and discussed with patient and daughter. ASA 81 mg daily added. * 12/02/22 slightly improved. Will transition to oral antibiotics if HIDA scan is negative for acute cholecystitis. * 12/03/22 antibiotic day . * 12/04/22 antibiotic day 05/10 * 12/05/22 antibiotic day 06/09. Post op cholecystitis day 1. Cellulitis improving. Continue antibiotics. (3) Cholelithiasis: Qualifiers: Cholelithiasis location: gallbladder Code(s): K80.20 - Calculus of gallbladder without cholecystitis without obstruction Status: Chronic Assessment and Plan: CT abdomen and pelvis shows cholelithiasis with intrahepatic and extrahepatic duct dilation, mild gallbladder and pancreatic duct dilation. No definitive mass or obstruction. * Abdominal US - mild intrahepatic biliary dilation, cholelithiasis and dilated common bile duct. * HIDA ordered on admission. * MRCP with mildly dilated common bile duct, cholelithiasis, no choledocholithiasis * 12/01/22 multiple episodes of bilious emesis today. Upper GI series without obstruction. * Consider General Surgery consult due to CT scan results. * Continue Zosyn IV as above. * 12/03/22 Waiting for HIDA scan. Antibiotic day 5 of 7. Can be stopped if acute cholecystitis is ruled out. * 12/04/22 patient having cholecystectomy today per general surgery note. (4) COPD (chronic obstructive pulmonary disease): Qualifiers: COPD type: emphysema Emphysema type: unspecified Qualified Code(s): J43.9 - Emphysema, unspecified Code(s): J44.9 - Chronic obstructive pulmonary disease, unspecified Status: Chronic Assessment and Plan: Chronic, in acute exacerbation- wheezing and hypoxia noted on physical exam. * Severe emphysema noted on CT scan. She is supposed to wear home O2 and per notes refuses. spO2 78% room air. * She was reportedly desaturating while sleeping in the ED. Apnea link monitor pending. * Continue scheduled duonebs * Resume Incruse Ellipta closer to discharge. * Monitor respiratory status * Reinforced O2 use. * Stable. (5) Acute metabolic encephalopathy: Code(s): G93.41 - Metabolic encephalopathy Status: Acute Assessment and Plan: Secondary to acute infection and hypoxia. * Continue supplemental O2 to keep sats>91% * Continue to treat infec
--- NOTE | 2022-12-04 08:30 | PM.IMPN ---
Progress Note: A&P Assessment and Plan (1) Sepsis: Qualifiers: Sepsis acute organ dysfunction status: without acute organ dysfunction Sepsis type: sepsis due to unspecified organism Qualified Code(s): A41.9 - Sepsis, unspecified organism Code(s): A41.9 - Sepsis, unspecified organism Status: Acute Assessment and Plan: Patient presented to the ED and noted to have Temp 100.6F, HR 122, RR 28, spO2 78% RA, WBC 13, possible cellulitis or cholecystitis. Lactic acid 1.4 CRP 5.5 Continue Zosyn IV Q6 hours, started 11/29 continue IV hydration Trend CBC and monitor temperature curve PRN acetaminophen for fever. Resolved. (2) Cellulitis of leg, left: Code(s): L03.116 - Cellulitis of left lower limb Status: Acute Assessment and Plan: Left leg noted to be red and excoriated. She has previously been treated with Primaxin IV and PO Bactrim following hospitalization 08/2022 and clindamycin PO x10 days 10/2022 from the ED. Continue Zosyn IV Q6 hours. Elevate LLE. Wound care consulted and appreciate recommendations. continue mupirocin ointment BID and add eucerin cream daily. ABIs - severe PAD. L MAGDIEL 0.49, R MAGDIEL 0.53 Outpatient vascular evaluation warranted and discussed with patient and daughter. ASA 81 mg daily added. 12/02/22 slightly improved. Will transition to oral antibiotics if HIDA scan is negative for acute cholecystitis. 12/03/22 antibiotic day 5 of 10. 12/04/22 antibiotic day 05/1012/05/22 antibiotic day 06/09. Post op cholecystitis day 1. Cellulitis improving. Continue antibiotics. (3) Cholelithiasis: Qualifiers: Cholelithiasis location: gallbladder Code(s): K80.20 - Calculus of gallbladder without cholecystitis without obstruction Status: Chronic Assessment and Plan: CT abdomen and pelvis shows cholelithiasis with intrahepatic and extrahepatic duct dilation, mild gallbladder and pancreatic duct dilation. No definitive mass or obstruction. Abdominal US - mild intrahepatic biliary dilation, cholelithiasis and dilated common bile duct. HIDA ordered on admission. MRCP with mildly dilated common bile duct, cholelithiasis, no choledocholithiasis 12/01/22 multiple episodes of bilious emesis today. Upper GI series without obstruction. Consider General Surgery consult due to CT scan results. Continue Zosyn IV as above. 12/03/22 Waiting for HIDA scan. Antibiotic day 5 of 7. Can be stopped if acute cholecystitis is ruled out. 12/04/22 patient having cholecystectomy today per general surgery note. (4) COPD (chronic obstructive pulmonary disease): Qualifiers: COPD type: emphysema Emphysema type: unspecified Qualified Code(s): J43.9 - Emphysema, unspecified Code(s): J44.9 - Chronic obstructive pulmonary disease, unspecified Status: Chronic Assessment and Plan: Chronic, in acute exacerbation- wheezing and hypoxia noted on physical exam. Severe emphysema noted on CT scan. She is supposed to wear home O2 and per notes refuses. spO2 78% room air. She was reportedly desaturating while sleeping in the ED. Apnea link monitor pending. Continue scheduled duonebs Resume Incruse Ellipta closer to discharge. Monitor respiratory status Reinforced O2 use. Stable. (5) Acute metabolic encephalopathy: Code(s): G93.41 - Metabolic encephalopathy Status: Acute Assessment and Plan: Secondary to acute infection and hypoxia. Continue supplemental O2 to keep sats>91% Continue to treat infection. MRI brain r/o stoke d/t PFO negative for acute or chronic infarct. Improved. Appears at baseline (6) Neuropathy: Code(s): G62.9 - Polyneuropathy, unspecified Status: Acute Assessment and Plan: Chronic, h/o L4-5 spinal fusion and T12 & L1 compression fractures. Continue cyclobenzaprine PRN, Lyrica scheduled but hold for sedation, and change oxycodone to TID PRN due to
[2022-12-04] MEDS: METOPROLOL TARTRATE INJ 5 MG/5 ML VIAL IV PUSH (08:39)
[2022-12-04] MEDS: CHLORHEXIDINE GLUCONATE 4% SOL 120 ML BTL 1 APPLIC TOPICAL (08:39)
[2022-12-04] MEDS: amLODIPine BESYLATE 5 MG TABLET 10 MG PO (08:40)
[2022-12-04] MEDS: oxyCODONE HCL (*CRX) 5 MG TAB IR 10 MG PO ×2 (08:40→20:57)
[2022-12-04] MEDS: SERTRALINE HCL 50 MG TABLET 100 MG PO (08:41)
[2022-12-04] MEDS: PREGABALIN (*CRX) 50 MG CAPSULE 100 MG PO (08:42)
--- NOTE | 2022-12-04 11:00 | PC.NURSE ---
Several attempts made to contact pt's spouse. Pt states not to call earlier this shift because sleeps late. Offered again and pt states is not available because he goes out to feed the dog. Phone number written down and provided to pt. Pt states she will call when he is available to let him know about plan of care.
--- NOTE | 2022-12-04 11:15 | PCOTNOTE ---
Attempted to see patient this am, however patient was off floor for surgery at this time.
--- NOTE | 2022-12-04 12:07 | WPDHPUPDATE1 ---
History and Physical Update Update Date/Time: 12/04/22 12:07 History and Physical has been reviewed, including an updated exam of the patient. There are NO changes in the patient's condition. Risks, benefits, and alternatives have been discussed and questions answered. Patient agrees to proceed with procedure.
--- NOTE | 2022-12-04 12:19 | WPDANESEPPF ---
Anes - Initial Pre Proc Eval Procedure: Operation Date: 12/04/22 13:30 Proposed Procedures p Laparoscopic Cholecystectomy - Casimiro Chamberlain MD Date/Time: 12/04/22 12:19 Surgeon: Jesus Martino MD Pre Op Diagnosis: Sepsis/Altered Mental Status/Cellulitis Legs Patient Data Age: 67 Gender: F Height: 1.63 m Weight: 54 kg Last Vital Signs Temp 98.1 F 12/04/22 11:15 Pulse 108 H 12/04/22 11:15 Resp 20 12/04/22 11:15 BP 100/70 12/04/22 11:15 Pulse Ox 94 12/04/22 11:15 O2 Del Method Room Air 12/04/22 11:15 O2 Flow Rate 1 12/03/22 08:00 FiO2 32 12/02/22 10:00 Allergies Allergy/AdvReac Type Severity Reaction Status Date / Time vancomycin Allergy Rash Verified 11/29/22 09:00 Cephalosporins AdvReac Diarrhea Verified 11/29/22 09:00 Home Medications Medication Instructions Recorded Confirmed Type cyclobenzaprine 10 mg tablet 10 mg PO BID PRN Muscle Spasm 08/27/22 11/29/22 History oxybutynin chloride 5 mg 5 mg PO DAILY 08/27/22 11/29/22 History tablet,extended release 24 hr oxycodone 10 mg tablet 10 mg PO TID 08/27/22 11/29/22 History pregabalin 100 mg capsule 100 mg PO DAILY 08/27/22 11/29/22 History sertraline 100 mg tablet 100 mg PO DAILY 08/27/22 11/29/22 History amlodipine 10 mg tablet 10 mg PO DAILY 09/13/22 11/29/22 History ferrous sulfate 325 mg (65 mg 325 mg PO DAILY 09/13/22 11/29/22 History iron) tablet (FeroSul) miconazole nitrate 2 % topical 1 applic topical BID #71 grams 09/16/22 11/29/22 Rx ointment umeclidinium 62.5 mcg/actuation 1 inh inhalation DAILY #30 ea 09/16/22 11/29/22 Rx blister powder for inhalation (Incruse Ellipta) Laboratory Tests 12/04/22 07:37 Blood Type A Positive Antibody Screen Negative Patient hx anesthesia problems: none Family hx anesthesia problems: none Results Review: All pre-operative results and documents have been reviewed as part of the pre-operative evaluation. [facility] Past Medical History Medical History (Updated 12/04/22 @ 08:13 by Casimiro Chamberlain MD) Chronic back pain COPD (chronic obstructive pulmonary disease) Depression Foot drop Hypertension Iron deficiency anemia Neuropathy Overactive bladder Surgical History Surgical History (Updated 12/01/22 @ 17:23 by Anna De La Fuente, KAYLIE) H/O tubal ligation tubal repair after a tubal H/O umbilical hernia repair History of appendectomy History of foot surgery History of spinal fusion Family History Family History Other Heart disease Hypertension Social History Social History Social History: the patient has 2 adopted children and no biological children. Patient smokes 3/4 of a pack a cigarettes daily and has no intention on smoking cessation. The patient does have a nightly beer. The patient is and lives with her . Her is the durable power trust and estates attorney for healthcare. Code status full code Smoking packs per day: 0.5 Smoking cigarettes per day: 10.0 Years smoked: 50 Smoking pack-years: 25.00 Smoking status: Current every day smoker Tobacco type: cigarettes Second hand tobacco smoke exposure: No Alcohol intake: current Drinks per week: 14 Substance use: never Substance use type: does not use Lack of Transportation: No Lack of Food: Never True Current Housing: I Have Housing Concerned About Future Housing: No Difficulty Paying Gas/Electric Bills: No Difficulty Paying for Meds: No Currently Unemployed: No Education: Associate Degree Difficulty w/ Childcare or Family Care: No Spiritual care concerns: No Anes - Eval Final PreProcedure Day of Procedure 12/04/22 12:19 Patient weight: normal Heart: regular rate and rhythm Lungs: clear to auscultation Airway: Mallampati scale class II Neurological: alert and oriented Last oral
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
[2022-12-04] MEDS: ceFAZolin 2 GM/D5W 50 ML 2 GM/50 ML BAG IVPB (12:35)
[2022-12-04] MEDS: BUPIVACAINE/EPINEPHRINE 0.5% 30 ML VIAL INFILTRATE (13:25)
--- NOTE | 2022-12-04 13:25 | PCPTNOTE ---
The patient treatment was not able to be completed due to patient out of room for procedure. Will plan to continue treatment when activity can be resumed per M.D..
[2022-12-04] MEDS: LACTATED RINGERS 1,000 ML 30 ML IV CONT ×2 (16:03)
--- NOTE | 2022-12-04 17:49 | W.PM.PROC2 ---
Procedure Note - Detailed Date of Procedure 12/04/22 Pre-op Diagnosis Cholecystitis Post-op Diagnosis Other (Acute and chronic cholecystitis, cholelithiasis, bile duct injury) Procedure Performed Laparoscopic cholecystectomy, repair bile duct injury Surgeon Casimiro Chamberlain MD Key Account Director Cheyenne HOLDERA FURNITURE SERVICER, Stephania Sandhu FURNITURE SERVICER Anesthesia General and Local (0.5% Marcaine with epinephrine) Indications Patient is a 67-year-old woman who came in with mental status changes fever, shortness of breath and hypoxemia. She has chronic COPD. She had a CT scan of the head and a chest x-ray which were negative. CT scan of the abdomen pelvis showed gallstones with biliary ductal dilatation. The patient was confused enough that she had no idea why she had come to the hospital. About the 2nd or 3rd day she was in the hospital, her mental status improved. She had had an MRCP which did show biliary ductal dilatation but no common bile duct stones. The MRCP also showed gallstones but no sign of cholecystitis. An ultrasound suggested there was a stone in the neck of the gallbladder. Patient's LFTs were normal other than a slight elevation of alkaline phosphatase. Patient was improving but was still having some emesis and then recalled that she was actually vomiting quite a bit at home before coming to the hospital. She had a HIDA scan done yesterday which showed nonvisualization of the gallbladder consistent with acute cholecystitis. With the ultrasound findings and the HIDA scan findings, she is taken now to surgery for cholecystitis with gallstones as likely the cause of her present illness. Findings Findings were very unusual. She had a very large gallbladder. She was a very petite person with a small abdominal cavity. She had large stones in the infundibulum of the gallbladder. There was evidence of chronic and acute cholecystitis. Although the MRCP was negative for bile duct stones, the cystic duct and common bile duct were very dilated. The adhesions of the cystic duct, common duct, and gallbladder were quite dense and numerous. The dissection was very difficult and most of these adhesions tended to bleed. The anatomy was very difficult to delineate. The gallbladder was difficult to retract adequately as there was adhesions to the lateral aspect of the right lobe of the liver as well. Eventually all these adhesions were taken down and I was able to retract the gallbladder adequately. The cystic duct and common hepatic duct even seem to be adherent to the medial wall of the gallbladder. The dissection of the medial aspect of the gallbladder resulted in a small opening which appeared at 1st to be in the gallbladder. Later however, it was found that this opening was actually in a very dilated common hepatic duct, just proximal to the cystic duct junction. The surgery lasted nearly 2-1/2 hours which is 3-4 times as long as this surgery typically takes. Blood loss was 50 cc which was 5 times a normal blood loss. Dissection of the gallbladder and bile ducts was exceptionally difficult due to large stone and the inability to provide adequate traction on the cholecystohepatic triangle due to adhesions and the large gallbladder. The gallbladder was difficult to grasp due to the large stone present. An extra 5 mm port had to be placed in the left mid abdomen to retract the liver and expose the medial aspect of the gallbladder adequately. This was easily within the top 5% of exceptionally difficult cholecystectomies. I did discuss the bile duct injury with the patient's when I called him after the surgery. I explained the nature of the injury and that it may require additional intervention should further evidence of a leak be found. Description of Procedure The patient was taken to surgery and induced into general anesthesia. The abdomen was prepped and draped. The initial trocar was placed in the epigastric area just to the right of midline. This was the
[2022-12-04] MEDS: PROMETHAZINE HCL 25 MG/ML AMPUL 12.5 MG IV PUSH (20:57)
[2022-12-04] MEDS: HYDROCORTISONE 1% 30 GM CREAM 1 APPLIC TOPICAL (20:58)
[2022-12-04] MEDS: FAMOTIDINE 20 MG/2 ML VIAL IV PUSH (20:58)
[2022-12-04] MEDS: MORPHINE SULFATE (*CRX) 4 MG/ML INJ 2 MG IV PUSH (22:37)
[2022-12-05] VITALS (23 sets, daily range): BP systolic 130–173; BP diastolic 72–110; PULSE 89–132; RESP 13–20; TEMP 36.2–36.9; O2SAT 90–97
[2022-12-05] MEDS: MORPHINE SULFATE (*CRX) 4 MG/ML INJ 2 MG IV PUSH ×6 (00:32→20:35)
[2022-12-05] MEDS: cilostazoL 100 MG TABLET PO (06:45)
[2022-12-05 06:59] LABS: Hematocrit 39.6 % (37.0-47.0); Mean Corpuscular HGB Conc 32.8 g/dl (32-36); Mean Corpuscular Hemoglobin 28.8 pg (26-34); Mean Corpuscular Volume 87.8 fl (80-100); Mean Platelet Volume 10.9 fl (7.4-10.4); Platelet Count Result 269 k/mm3 (150-375); Red Blood Count 4.51 M/mm3 (4.2-5.4); White Blood Count 14.5 K/mm3 (4.5-10.0)
[2022-12-05] MEDS: HYDROcodone/acetaminophen (*CRX) 7.5-325 MG TABLET 1 TAB PO ×2 (06:59→20:35)
[2022-12-05 07:13] LABS: Alanine Aminotransferase 88 U/L (6-35); Albumin Level 3.2 g/dL (3.5-5.1); Alkaline Phosphatase 80 U/L (38-126); Anion Gap 6 mmol/L (8-16); Aspartate Amino Transferase 154 U/L (14-36); Bilirubin,Total 1.3 mg/dL (0.2-1.3); Blood Urea Nitrogen 12 mg/dL (7-17); Calcium 8.2 mg/dL (8.4-10.2); Carbon Dioxide 22 mmol/L (22-30); Chloride 110 mmol/L (98-107); Estimated CRCL calculation 51 ml/min; Estimated Glomerular Filt Rate > 60; Glucose 104 mg/dL (65-110); Potassium 4.7 mmol/L (3.4-5.0); Sodium 138 mmol/L (137-145)
--- NOTE | 2022-12-05 09:37 | P.PNIM_ITS ---
Progress Note: A&P Assessment and Plan (1) Sepsis: Qualifiers: Sepsis acute organ dysfunction status: without acute organ dysfunction Sepsis type: sepsis due to unspecified organism Qualified Code(s): A41.9 - S epsis, unspecified organism Code(s): A41.9 - Sepsis, unspecified organism Status: Acute Assessment and Plan: Patient presented to the ED and noted to have Temp 100.6F, HR 122, RR 28, spO2 78% RA, WBC 13, possible cellulitis or cholecystitis. * Lactic acid 1.4 * CRP 5.5 * Continue Zosyn IV Q6 hours, started 11/29 * continue IV hydration * Trend CBC and monitor temperature curve * PRN acetaminophen for fever. * Resolved. (2) Cellulitis of leg, left: Code(s): L03.116 - Cellulitis of left lower limb Status: Acute Assessment and Plan: Left leg noted to be red and excoriated. She has previously been treated with Primaxin IV and PO Bactrim following hospitalization 08/2022 and clindamycin PO x10 days 10/2022 from the ED. * Continue Zosyn IV Q6 hours. * Elevate LLE. * Wound care consulted and appreciate recommendations. * continue mupirocin ointment BID and add eucerin cream daily. * ABIs - severe PAD. L MAGDIEL 0.49, R MAGDIEL 0.53 Outpatient vascular evaluation warranted and discussed with patient and daughter. ASA 81 mg daily added. * 12/02/22 slightly improved. Will transition to oral antibiotics if HIDA scan is negative for acute cholecystitis. * 12/03/22 antibiotic day . * 12/04/22 antibiotic day 05/10 * 12/05/22 antibiotic day 06/09. Post op cholecystitis day 1. Cellulitis improving. Continue antibiotics. Per patient legs are improving. (3) Cholelithiasis: Qualifiers: Cholelithiasis location: gallbladder Code(s): K80.20 - Calculus of gallbladder without cholecystitis without obstruction Status: Chronic Assessment and Plan: CT abdomen and pelvis shows cholelithiasis with intrahepatic and extrahepatic duct dilation, mild gallbladder and pancreatic duct dilation. No definitive mass or obstruction. * Abdominal US - mild intrahepatic biliary dilation, cholelithiasis and dilated common bile duct. * HIDA ordered on admission. * MRCP with mildly dilated common bile duct, cholelithiasis, no choledocholithiasis * 12/01/22 multiple episodes of bilious emesis today. Upper GI series without obstruction. * Consider General Surgery consult due to CT scan results. * Continue Zosyn IV as above. * 12/03/22 Waiting for HIDA scan. Antibiotic day 5 of 7. Can be stopped if acute cholecystitis is ruled out. * 12/04/22 patient having cholecystectomy today per general surgery note. * 12/05/22 patient postop cholecystectomy day 1. Patient found to have mildly elevated LFTs on labs. This could be contributed patient's procedural complications noted in the surgery notes. Will continue to monitor the patient's labs. * Plan to undergo subsequent surgery today due to bile duct injury. (4) COPD (chronic obstructive pulmonary disease): Qualifiers: COPD type: emphysema Emphysema type: unspecified Qualified Code(s): J4 3.9 - Emphysema, unspecified Code(s): J44.9 - Chronic obstructive pulmonary disease, unspecified Status: Chronic Assessment and Plan: Chronic, in acute exacerbation- wheezing and hypoxia noted on physical exam. * Severe emphysema noted on CT scan. She is supposed to wear home O2 and per notes refuses. spO2 78% room air. * She was reportedly desaturating while sleeping in the ED. Apnea link monitor pending. * Continue scheduled duonebs * Resume Incruse Ellipta closer to discharge. *
--- NOTE | 2022-12-05 09:37 | PM.IMPN ---
Progress Note: A&P Assessment and Plan (1) Sepsis: Qualifiers: Sepsis acute organ dysfunction status: without acute organ dysfunction Sepsis type: sepsis due to unspecified organism Qualified Code(s): A41.9 - Sepsis, unspecified organism Code(s): A41.9 - Sepsis, unspecified organism Status: Acute Assessment and Plan: Patient presented to the ED and noted to have Temp 100.6F, HR 122, RR 28, spO2 78% RA, WBC 13, possible cellulitis or cholecystitis. Lactic acid 1.4 CRP 5.5 Continue Zosyn IV Q6 hours, started 11/29 continue IV hydration Trend CBC and monitor temperature curve PRN acetaminophen for fever. Resolved. (2) Cellulitis of leg, left: Code(s): L03.116 - Cellulitis of left lower limb Status: Acute Assessment and Plan: Left leg noted to be red and excoriated. She has previously been treated with Primaxin IV and PO Bactrim following hospitalization 08/2022 and clindamycin PO x10 days 10/2022 from the ED. Continue Zosyn IV Q6 hours. Elevate LLE. Wound care consulted and appreciate recommendations. continue mupirocin ointment BID and add eucerin cream daily. ABIs - severe PAD. L MAGDIEL 0.49, R MAGDIEL 0.53 Outpatient vascular evaluation warranted and discussed with patient and daughter. ASA 81 mg daily added. 12/02/22 slightly improved. Will transition to oral antibiotics if HIDA scan is negative for acute cholecystitis. 12/03/22 antibiotic day 5 of 10. 12/04/22 antibiotic day 05/1012/05/22 antibiotic day 06/09. Post op cholecystitis day 1. Cellulitis improving. Continue antibiotics. Per patient legs are improving. (3) Cholelithiasis: Qualifiers: Cholelithiasis location: gallbladder Code(s): K80.20 - Calculus of gallbladder without cholecystitis without obstruction Status: Chronic Assessment and Plan: CT abdomen and pelvis shows cholelithiasis with intrahepatic and extrahepatic duct dilation, mild gallbladder and pancreatic duct dilation. No definitive mass or obstruction. Abdominal US - mild intrahepatic biliary dilation, cholelithiasis and dilated common bile duct. HIDA ordered on admission. MRCP with mildly dilated common bile duct, cholelithiasis, no choledocholithiasis 12/01/22 multiple episodes of bilious emesis today. Upper GI series without obstruction. Consider General Surgery consult due to CT scan results. Continue Zosyn IV as above. 12/03/22 Waiting for HIDA scan. Antibiotic day 5 of 7. Can be stopped if acute cholecystitis is ruled out. 12/04/22 patient having cholecystectomy today per general surgery note. 12/05/22 patient postop cholecystectomy day 1. Patient found to have mildly elevated LFTs on labs. This could be contributed patient's procedural complications noted in the surgery notes. Will continue to monitor the patient's labs. Plan to undergo subsequent surgery today due to bile duct injury. (4) COPD (chronic obstructive pulmonary disease): Qualifiers: COPD type: emphysema Emphysema type: unspecified Qualified Code(s): J43.9 - Emphysema, unspecified Code(s): J44.9 - Chronic obstructive pulmonary disease, unspecified Status: Chronic Assessment and Plan: Chronic, in acute exacerbation- wheezing and hypoxia noted on physical exam. Severe emphysema noted on CT scan. She is supposed to wear home O2 and per notes refuses. spO2 78% room air. She was reportedly desaturating while sleeping in the ED. Apnea link monitor pending. Continue scheduled duonebs Resume Incruse Ellipta closer to discharge. Monitor respiratory status Reinforced O2 use. Stable. (5) Acute metabolic encephalopathy: Code(s): G93.41 - Metabolic encephalopathy Status: Acute Assessment and Plan: Secondary to acute infection and hypoxia. Continue supplemental O2 to keep sats>91% Continue to treat infection. MRI brain r/o stoke d/t PFO negative for acute or chronic infarct.
--- NOTE | 2022-12-05 09:37 | WPDANESPN ---
Anes - Prog Note Post-Op Date/Time: 12/05/22 09:37 Cardiovascular status: normal Respiratory status: normal Airway patency: baseline Mental status: baseline Post-Op hydration status: normal Vital Signs: Last Vital Signs Temp 36.5 C 12/05/22 07:12 Pulse 120 H 12/05/22 07:12 Resp 18 12/05/22 07:12 BP 164/87 H 12/05/22 07:12 Pulse Ox 93 12/05/22 07:37 O2 Del Method Nasal Cannula 12/05/22 07:37 O2 Flow Rate 2 12/05/22 07:37 FiO2 32 12/02/22 10:00 Pain Score (VAS): 05/10 I/O: Intake & Output 12/04/22 12/05/22 12/05/22 23:59 07:59 15:59 Intake Total 100 350 300 Output Total 15 Balance 100 335 300 Laboratory Tests 12/05/22 06:49 12/05/22 06:49 12/05/22 12/05/22 06:49 06:49 WBC 14.5 H RBC 4.51 Hgb 13.0 Hct 39.6 MCV 87.8 MCH 28.8 MCHC 32.8 RDW 16.0 H Plt Count 269 MPV 10.9 H Sodium 138 Potassium 4.7 Chloride 110 H Carbon Dioxide 22 Anion Gap 6 L BUN 12 Creatinine 0.80 Estim Creat Clear Calc 51 Estimated GFR > 60 Glucose 104 Calcium 8.2 L Total Bilirubin 1.3 AST 154 H ALT 88 H Alkaline Phosphatase 80 Total Protein 7.0 Albumin 3.2 L Microbiology 11/29/22 05:52 Blood Blood Culture - Final 11/29/22 05:52 Blood Blood Culture - Final Post-procedural complaints: none Patient Feedback: Patient satisfied with anesthetic care.
[2022-12-05] MEDS: FAMOTIDINE 20 MG/2 ML VIAL IV PUSH ×2 (10:13→19:57)
[2022-12-05] MEDS: FERROUS SULFATE 324 MG TABLET PO (10:13)
[2022-12-05] MEDS: HYDROCORTISONE 1% 30 GM CREAM 1 APPLIC TOPICAL ×2 (10:16→19:57)
[2022-12-05] MEDS: ASPIRIN 81 MG ENTERIC TABLET PO (10:17)
[2022-12-05] MEDS: SERTRALINE HCL 50 MG TABLET 100 MG PO (10:17)
[2022-12-05] MEDS: ATORVASTATIN 40 MG TABLET PO (10:17)
[2022-12-05] MEDS: amLODIPine BESYLATE 5 MG TABLET 10 MG PO (10:17)
[2022-12-05] MEDS: ENOXAPARIN 40 MG/0.4 ML SYRINGE SUB-Q (10:18)
[2022-12-05] MEDS: PREGABALIN (*CRX) 50 MG CAPSULE 100 MG PO (10:21)
[2022-12-05] MEDS: HYDROcodone/acetaminophen (*CRX) 5-325 MG TABLET 1 TAB PO (10:21)
--- NOTE | 2022-12-05 11:12 | PC.NURSE ---
DR Chamberlain notified of JOHN drainage and the need to reinforce dressing. Bloody drainage leaking around JOHN site. Pt also complains of pain with minimal relief from pain meds given.
--- NOTE | 2022-12-05 13:15 | WPDGICN ---
Assessment and Plan Assessment and plan (1) Cholelithiasis and acute cholecystitis with obstruction: Code(s): K80.01 - Calculus of gallbladder with acute cholecystitis with obstruction Status: Acute Assessment and Plan: Cholecystectomy was done yesterday. Was complicated by an injury to the bile duct. (2) Opioid dependence with current use: Code(s): F11.20 - Opioid dependence, uncomplicated Status: Chronic Assessment and Plan: She uses opioids for back but she states that now it helps her with pain which is generalized. (3) COPD (chronic obstructive pulmonary disease): Qualifiers: COPD type: emphysema Emphysema type: unspecified Qualified Code(s): J43.9 - Emphysema, unspecified Code(s): J44.9 - Chronic obstructive pulmonary disease, unspecified Status: Chronic Assessment and Plan: On arrival to the emergency room her oxygen saturations originally were in the 70s. She is now comfortable on room air. (4) Common bile duct leak: Code(s): K83.8 - Other specified diseases of biliary tract Status: Acute Assessment and Plan: I discussed with her ERCP and stent placement. I explained that the rationale was to provide of passage for bile through the stent to allow the leak to heal over. I discussed the possible complications and risks of ERCP including pancreatitis which could be severe and could result in prolonged hospitalization and significant pain. I told her that there is risk of bleeding perforation but less than 1% each. She wishes to proceed with ERCP in order to get over this illness and to be able to eat. GI Consult Note Consult date/time: 12/05/22 13:15 HPI: Chantal Grove is a 67 year old female Who presented to the emergency room 4 days ago with confusion, abdominal discomfort, suspected sepsis and was found have elevated liver enzymes. Subsequently imaging revealed cholelithiasis with intra and extrahepatic duct dilatation. No common duct stones were seen on imaging including MRCP. She underwent laparoscopic cholecystectomy yesterday which was somewhat difficult. Apparently she sustained a slight puncture to her common bile duct. She has a drain in place which has been draining she states quite a bit of fluid, bile, last couple of hours. She states that she is having pain all over. She does have chronic pain, she has COPD, she suffers from foot drop. She has cellulitis of the lower extremitiesfor which she is on antibiotics. Review of Systems Review of Systems: All systems reviewed & are unremarkable except as noted in HPI and below PMFSH Past Medical History Medical History Chronic back pain COPD (chronic obstructive pulmonary disease) Depression Foot drop Hypertension Iron deficiency anemia Neuropathy Overactive bladder Surgical History Surgical History H/O tubal ligation tubal repair after a tubal H/O umbilical hernia repair History of appendectomy History of foot surgery History of spinal fusion Family History Family History Other Heart disease Hypertension Social History Social History Social History: the patient has 2 adopted children and no biological children. Patient smokes 3/4 of a pack a cigarettes daily and has no intention on smoking cessation. The patient does have a nightly beer. The patient is and lives with her . Her is the durable power contracts attorney for healthcare. Code status full code Smoking packs per day: 0.5 Smoking cigarettes per day: 10.0 Years smoked: 50 Smoking pack-years: 25.00 Smoking status: Current every day smoker Tobacco type: cigarettes Second hand tobacco smoke exposure: No Alcohol intake: current
--- NOTE | 2022-12-05 13:37 | PM.PNGS ---
Progress Note: A&P Assessment and Plan (1) Common bile duct leak: Code(s): K83.8 - Other specified diseases of biliary tract Status: Acute Assessment and Plan: Patient underwent a laparoscopic cholecystectomy yesterday with a small bile duct injury that was repaired with a clip during surgery. Her JOHN drainage today began to have bilious-appearing output consistent with a bile leak. She is having RUQ abdominal pain. GI has been consulted and is planning an ERCP today. Continue IV antibiotics. (2) Cholelithiasis and acute cholecystitis with obstruction: Code(s): K80.01 - Calculus of gallbladder with acute cholecystitis with obstruction Status: Acute Assessment and Plan: Post-op day 1, see plan above. (3) COPD (chronic obstructive pulmonary disease): Qualifiers: COPD type: emphysema Emphysema type: unspecified Qualified Code(s): J43.9 - Emphysema, unspecified Code(s): J44.9 - Chronic obstructive pulmonary disease, unspecified Status: Chronic (4) Iron deficiency anemia: Code(s): D50.9 - Iron deficiency anemia, unspecified Status: Chronic (5) Ischemic rest pain of lower extremity: Code(s): M79.606 - Pain in leg, unspecified; I99.8 - Other disorder of circulatory system Status: Chronic Plan I have discussed the patient's case and plan of care with Dr. Chamberlain. Subjective Subjective Date/Time Seen: 12/05/22 12:37 Post Op day: 1 (laparoscopic cholecystectomy, repair bile duct injury) Patient reports: afebrile Interval history: Patient complaining of RUQ abdominal pain since surgery. She had a JOHN drain left in after surgery and reportedly from nursing she has had an increase in output and the drainage has become more brownish-colored in appearance since early this morning. No other complaints at this time. Review of Systems Review of Systems: All systems reviewed & are unremarkable except as noted in HPI and below Constitutional: Constitutional: Reports no additional constitutional complaints, Denies chills, Denies fever(s) and Denies headache(s) Cardiovascular: Cardiovascular: Reports no additional cardiovascular complaints, Denies chest pain and Denies dyspnea Respiratory: Respiratory: Reports no additional respiratory complaints and Denies dyspnea Gastrointestinal: Gastrointestinal: Reports as per HPI and Reports no additional gastrointestinal complaints Exam Const: General: comfortable, no acute distress and awake Orientation/consciousness: patient oriented x3 GI: Inspection: incision (incisions dry and intact) and other (JOHN drain with red-brown bilious-appearing drainage) GI Palp: Yes Soft to palpation, Yes Tenderness to palpation present (GI) (incisional, RUQ), No Guarding due to palpation present (GI) and No Rebound tenderness present Auscultation: normal bowel sounds Neuro: General: moves all extremities and no focal motor deficits Extrem: Other: Bilateral lower extremity redness and swelling circumferentially around the lower legs consistent with cellulitis, skin is dry and scaly but no significant open wounds. She is tender over the areas of redness Psych: Mental Status: mental status grossly normal Insight: Good insight present (Psych) Objective Data Vital Signs Vital Signs: Vital Signs - 24 hr 12/04/22 16:03 12/04/22 16:20 12/04/22 16:35 Temperature 97.2 F L Pulse Rate 114 H 99 96 Respiratory Rate 22 H 19 18 Blood Pressure 154/111 H 168/90 H Pulse Oximetry 92 97 94 Oxygen Delivery Simple Face Mask Simple Face Mask Simple Face Mask Oxygen Flow Rate 8 10 10 12/04/22 16:48 12/04/22 16:50 12/04/22 17:05 Temperature Pulse Rate 96 99 Respiratory Rate 18 20 Blood Pressure 139/75 127/70 Pulse Oximetry 94 92 Oxygen Delivery Nasal Cannula Nasal Cannula Nasal Cannula Oxygen Flow Rate 3 3 2 12/04/22 17:20 12/04/22 20:45 12/04/22 18:20 Temperature 97.2 F L 97.3 F L Pulse Rate 94 109 H Resp
--- NOTE | 2022-12-05 13:58 | WPDANESEPPF ---
Anes - Initial Pre Proc Eval Procedure: Operation Date: 12/04/22 13:30 Proposed Procedures p Laparoscopic Cholecystectomy - Casimiro Chamberlain MD Operation Date: 12/05/22 15:00 Proposed Procedures p Endoscopic Retro Cholangiopancreatogram - Philipp Norris MD Date/Time: 12/05/22 13:58 Surgeon: Jesus Martino MD Pre Op Diagnosis: Cholecystitis Patient Data Age: 67 Gender: F Height: 1.63 m Weight: 54 kg Last Vital Signs Temp 97.6 F 12/05/22 11:12 Pulse 120 H 12/05/22 11:12 Resp 18 12/05/22 11:12 BP 169/92 H 12/05/22 11:12 Pulse Ox 92 12/05/22 11:12 O2 Del Method Nasal Cannula 12/05/22 07:37 O2 Flow Rate 2 12/05/22 07:37 FiO2 32 12/02/22 10:00 Allergies Allergy/AdvReac Type Severity Reaction Status Date / Time vancomycin Allergy Rash Verified 12/05/22 13:57 Cephalosporins AdvReac Diarrhea Verified 12/05/22 13:57 Home Medications Medication Instructions Recorded Confirmed Type cyclobenzaprine 10 mg tablet 10 mg PO BID PRN Muscle Spasm 08/27/22 11/29/22 History oxybutynin chloride 5 mg 5 mg PO DAILY 08/27/22 11/29/22 History tablet,extended release 24 hr oxycodone 10 mg tablet 10 mg PO TID 08/27/22 11/29/22 History pregabalin 100 mg capsule 100 mg PO DAILY 08/27/22 11/29/22 History sertraline 100 mg tablet 100 mg PO DAILY 08/27/22 11/29/22 History amlodipine 10 mg tablet 10 mg PO DAILY 09/13/22 11/29/22 History ferrous sulfate 325 mg (65 mg 325 mg PO DAILY 09/13/22 11/29/22 History iron) tablet (FeroSul) miconazole nitrate 2 % topical 1 applic topical BID #71 grams 09/16/22 11/29/22 Rx ointment umeclidinium 62.5 mcg/actuation 1 inh inhalation DAILY #30 ea 09/16/22 11/29/22 Rx blister powder for inhalation (Incruse Ellipta) Laboratory Tests 12/05/22 12/05/22 06:49 06:49 WBC 14.5 K/mm3 H K/mm3 (4.5-10.0) RBC 4.51 M/mm3 M/mm3 (4.2-5.4) Hgb 13.0 g/dL g/dL (12.0-15.0) Hct 39.6 % % (37.0-47.0) MCV 87.8 fl fl (80-100) MCH 28.8 pg pg (26-34) MCHC 32.8 g/dl g/dl (32-36) RDW 16.0 % H % (11.5-14.5) Plt Count 269 k/mm3 k/mm3 (150-375) MPV 10.9 fl H fl (7.4-10.4) Sodium 138 mmol/L mmol/L (137-145) Potassium 4.7 mmol/L mmol/L (3.4-5.0) Chloride 110 mmol/L H mmol/L (98-107) Carbon Dioxide 22 mmol/L mmol/L (22-30) Anion Gap 6 mmol/L L mmol/L (8-16) BUN 12 mg/dL mg/dL (7-17) Creatinine 0.80 mg/dL mg/dL (0.7-1.0) Estim Creat Clear Calc 51 ml/min ml/min Estimated GFR > 60 (59 - ) Glucose 104 mg/dL mg/dL (65-110) Calcium 8.2 mg/dL L mg/dL (8.4-10.2) Total Bilirubin 1.3 mg/dL mg/dL (0.2-1.3) AST 154 U/L H U/L (14-36) ALT 88 U/L H U/L (6-35) Alkaline Phosphatase 80 U/L U/L (38-126) Total Protein 7.0 g/dL g/dL (6.3-8.2) Albumin 3.2 g/dL L g/dL (3.5-5.1) Patient hx anesthesia problems: none Family hx anesthesia problems: none Results Review: All pre-operative results and documents have been reviewed as part of the pre-operative evaluation. [facility] Past Medical History Medical History Chronic back pain COPD (chronic obstructive pulmonary disease) Depression Foot drop Hypertension Iron deficiency anemia Neuropathy Overactive bladder Surgical History Surgical History H/O tubal ligation tubal repair after a tubal H/O umbilical hernia repair History of appendectomy History of foot surgery History of spinal fusion Family History Family History Other Heart disease Hypertension Social History Social History Social History: the patient has 2 adopted children and no biological children. Chuy
[2022-12-05] MEDS: LACTATED RINGERS 1,000 ML 150 ML IV CONT ×2 (14:09→15:46)
[2022-12-05] MEDS: PROMETHAZINE HCL 25 MG/ML AMPUL 12.5 MG IV PUSH (14:10)
[2022-12-05] MEDS: fentaNYL CITRATE INJ (*CRX) 100 MCG/2 ML VIAL 50 MCG IV PUSH (14:24)
--- NOTE | 2022-12-05 16:53 | PCOTNOTE ---
Attempted to see pt. for occupational therapy re-evaluation on this date. Pt. away form room at this time for testing. nursing aware. Following.
--- NOTE | 2022-12-05 16:53 | SUR.PHASEII ---
Pt blood pressure elevated in recovery last bp 159/99 Dr. Walton notified. No new orders recieved.
[2022-12-05] MEDS: KCL 40 MEQ/0.9% SOD CHL 1,000 ML 125 ML IV CONT (19:54)
[2022-12-05] MEDS: METOPROLOL TARTRATE INJ 5 MG/5 ML VIAL IV PUSH (20:35)
[2022-12-05] MEDS: oxyCODONE HCL (*CRX) 5 MG TAB IR 10 MG PO (22:56)
[2022-12-06] VITALS (19 sets, daily range): BP systolic 131–171; BP diastolic 64–98; PULSE 107–132; RESP 12–24; TEMP 36.4–37.2; O2SAT 81–100
[2022-12-06] MEDS: MORPHINE SULFATE (*CRX) 4 MG/ML INJ 2 MG IV PUSH ×3 (01:31→12:06)
--- NOTE | 2022-12-06 03:01 | PCRCNOTE ---
Patient refused both 1999 and 0200 updraft treatments. May consider switching patient to PRN treatments. Next scheduled treatment to resume at 0800.
[2022-12-06] MEDS: HYDROcodone/acetaminophen (*CRX) 7.5-325 MG TABLET 1 TAB PO (03:47)
[2022-12-06] MEDS: KCL 40 MEQ/0.9% SOD CHL 1,000 ML 125 ML IV CONT (05:05)
[2022-12-06] MEDS: cilostazoL 100 MG TABLET PO (06:28)
[2022-12-06 07:33] LABS: Hematocrit 38.6 % (37.0-47.0); Hemoglobin 12.8 g/dL (12.0-15.0); Mean Corpuscular HGB Conc 33.2 g/dl (32-36); Mean Corpuscular Hemoglobin 28.1 pg (26-34); Mean Corpuscular Volume 84.6 fl (80-100); Mean Platelet Volume 11.1 fl (7.4-10.4); Platelet Count Result 320 k/mm3 (150-375); Red Blood Count 4.56 M/mm3 (4.2-5.4); Red Cell Distribution Width 15.9 % (11.5-14.5)
[2022-12-06 07:42] LABS: Alanine Aminotransferase 54 U/L (6-35); Albumin Level 3.1 g/dL (3.5-5.1); Alkaline Phosphatase 84 U/L (38-126); Anion Gap 3 mmol/L (8-16); Aspartate Amino Transferase 67 U/L (14-36); Bilirubin,Total 1.2 mg/dL (0.2-1.3); Blood Urea Nitrogen 10 mg/dL (7-17); Carbon Dioxide 24 mmol/L (22-30); Chloride 108 mmol/L (98-107); Estimated CRCL calculation 58 ml/min; Estimated Glomerular Filt Rate > 60; Glucose 98 mg/dL (65-110); Potassium 4.9 mmol/L (3.4-5.0); Sodium 135 mmol/L (137-145)
[2022-12-06] MEDS: FERROUS SULFATE 324 MG TABLET PO (07:46)
[2022-12-06] MEDS: PREGABALIN (*CRX) 50 MG CAPSULE 100 MG PO (07:46)
[2022-12-06] MEDS: amLODIPine BESYLATE 5 MG TABLET 10 MG PO (07:46)
[2022-12-06] MEDS: ASPIRIN 81 MG ENTERIC TABLET PO (07:47)
[2022-12-06] MEDS: SERTRALINE HCL 50 MG TABLET 100 MG PO (07:48)
[2022-12-06] MEDS: ATORVASTATIN 40 MG TABLET PO (07:48)
[2022-12-06] MEDS: HYDROCORTISONE 1% 30 GM CREAM 1 APPLIC TOPICAL (07:49)
[2022-12-06] MEDS: FAMOTIDINE 20 MG/2 ML VIAL IV PUSH ×2 (07:49→22:59)
[2022-12-06] MEDS: ENOXAPARIN 40 MG/0.4 ML SYRINGE SUB-Q (07:49)
--- NOTE | 2022-12-06 07:56 | WPDANESPN ---
Anes - Prog Note Post-Op Date/Time: 12/06/22 07:56 Cardiovascular status: normal Respiratory status: normal Airway patency: baseline Mental status: baseline Post-Op hydration status: normal Vital Signs: Last Vital Signs Temp 36.7 C 12/06/22 05:17 Pulse 116 H 12/06/22 05:17 Resp 20 12/06/22 05:17 BP 151/64 H 12/06/22 05:17 Pulse Ox 93 12/06/22 05:17 O2 Del Method Nasal Cannula 12/06/22 00:02 O2 Flow Rate 3 12/06/22 00:02 FiO2 32 12/05/22 08:00 Pain Score (VAS): 12/10 I/O: Intake & Output 12/05/22 12/05/22 12/06/22 15:59 23:59 07:59 Intake Total 0848 053 2473 Output Total 125 400 330 Balance 1225 50 870 Laboratory Tests 12/06/22 07:22 12/06/22 07:22 12/06/22 12/06/22 07:22 07:22 WBC 15.0 H RBC 4.56 Hgb 12.8 Hct 38.6 MCV 84.6 MCH 28.1 MCHC 33.2 RDW 15.9 H Plt Count 320 MPV 11.1 H Sodium 135 L Potassium 4.9 Chloride 108 H Carbon Dioxide 24 Anion Gap 3 L BUN 10 Creatinine 0.70 Estim Creat Clear Calc 58 Estimated GFR > 60 Glucose 98 Calcium 8.0 L Total Bilirubin 1.2 AST 67 H ALT 54 H Alkaline Phosphatase 84 Total Protein 6.0 L Albumin 3.1 L Post-procedural complaints: none Patient Feedback: Patient satisfied with anesthetic care.
--- NOTE | 2022-12-06 08:52 | P.PNIM_ITS ---
Progress Note: A&P Assessment and Plan (1) Sepsis: Qualifiers: Sepsis acute organ dysfunction status: without acute organ dysfunction Sepsis type: sepsis due to unspecified organism Qualified Code(s): A41.9 - S epsis, unspecified organism Code(s): A41.9 - Sepsis, unspecified organism Status: Acute Assessment and Plan: Patient presented to the ED and noted to have Temp 100.6F, HR 122, RR 28, spO2 78% RA, WBC 13, possible cellulitis or cholecystitis. * Lactic acid 1.4 * CRP 5.5 * Continue Zosyn IV Q6 hours, started 11/29 * continue IV hydration * Trend CBC and monitor temperature curve * PRN acetaminophen for fever. * Resolved. (2) Cellulitis of leg, left: Code(s): L03.116 - Cellulitis of left lower limb Status: Acute Assessment and Plan: Left leg noted to be red and excoriated. She has previously been treated with Primaxin IV and PO Bactrim following hospitalization 08/2022 and clindamycin PO x10 days 10/2022 from the ED. * Continue Zosyn IV Q6 hours. * Elevate LLE. * Wound care consulted and appreciate recommendations. * continue mupirocin ointment BID and add eucerin cream daily. * ABIs - severe PAD. L MAGDIEL 0.49, R MAGDIEL 0.53 Outpatient vascular evaluation warranted and discussed with patient and daughter. ASA 81 mg daily added. * 12/02/22 slightly improved. Will transition to oral antibiotics if HIDA scan is negative for acute cholecystitis. * 12/03/22 antibiotic day . * 12/04/22 antibiotic day 05/10 * 12/05/22 antibiotic day 06/09. Post op cholecystitis day 1. Cellulitis improving. Continue antibiotics. Per patient legs are improving. * 12/06/22 antibiotic day 8/. Patient's legs are continuing to improve (3) Cholelithiasis: Qualifiers: Cholelithiasis location: gallbladder Code(s): K80.20 - Calculus of gallbladder without cholecystitis without obstruction Status: Chronic Assessment and Plan: CT abdomen and pelvis shows cholelithiasis with intrahepatic and extrahepatic duct dilation, mild gallbladder and pancreatic duct dilation. No definitive mass or obstruction. * Abdominal US - mild intrahepatic biliary dilation, cholelithiasis and dilated common bile duct. * HIDA ordered on admission. * MRCP with mildly dilated common bile duct, cholelithiasis, no choledocholithiasis * 12/01/22 multiple episodes of bilious emesis today. Upper GI series without obstruction. * Consider General Surgery consult due to CT scan results. * Continue Zosyn IV as above. * 12/03/22 Waiting for HIDA scan. Antibiotic day 5 of 7. Can be stopped if acute cholecystitis is ruled out. * 12/04/22 patient having cholecystectomy today per general surgery note. * 12/05/22 patient postop cholecystectomy day 1. Patient found to have mildly elevated LFTs on labs. This could be contributed patient's procedural complications noted in the surgery notes. Will continue to monitor the patient's labs. * Plan to undergo subsequent surgery today due to bile duct injury. * 12/06/22 patient underwent ERCP yesterday for bile duct leak repair. GI and General surgery both continuing to follow patient. Talked with general surgeon today and he advised patient be transferred to a tertiary facility. Surgery requesting transfer due to the amount of complication this patient has had post op. May need more care than what we offer in this facility. Surgeon has been in contact with [facility] and is going to stay in touch with me regarding patient's possible transfer. (4) COPD (chronic obstructive pulmonary disease): Qualifiers: COPD type: emphysema Emphysem
--- NOTE | 2022-12-06 08:52 | PM.IMPN ---
Progress Note: A&P Assessment and Plan (1) Sepsis: Qualifiers: Sepsis acute organ dysfunction status: without acute organ dysfunction Sepsis type: sepsis due to unspecified organism Qualified Code(s): A41.9 - Sepsis, unspecified organism Code(s): A41.9 - Sepsis, unspecified organism Status: Acute Assessment and Plan: Patient presented to the ED and noted to have Temp 100.6F, HR 122, RR 28, spO2 78% RA, WBC 13, possible cellulitis or cholecystitis. Lactic acid 1.4 CRP 5.5 Continue Zosyn IV Q6 hours, started 11/29 continue IV hydration Trend CBC and monitor temperature curve PRN acetaminophen for fever. Resolved. (2) Cellulitis of leg, left: Code(s): L03.116 - Cellulitis of left lower limb Status: Acute Assessment and Plan: Left leg noted to be red and excoriated. She has previously been treated with Primaxin IV and PO Bactrim following hospitalization 08/2022 and clindamycin PO x10 days 10/2022 from the ED. Continue Zosyn IV Q6 hours. Elevate LLE. Wound care consulted and appreciate recommendations. continue mupirocin ointment BID and add eucerin cream daily. ABIs - severe PAD. L MAGDIEL 0.49, R MAGDIEL 0.53 Outpatient vascular evaluation warranted and discussed with patient and daughter. ASA 81 mg daily added. 12/02/22 slightly improved. Will transition to oral antibiotics if HIDA scan is negative for acute cholecystitis. 12/03/22 antibiotic day 5 of 10. 12/04/22 antibiotic day 05/1012/05/22 antibiotic day 06/09. Post op cholecystitis day 1. Cellulitis improving. Continue antibiotics. Per patient legs are improving. 12/06/22 antibiotic day 8/10. Patient's legs are continuing to improve (3) Cholelithiasis: Qualifiers: Cholelithiasis location: gallbladder Code(s): K80.20 - Calculus of gallbladder without cholecystitis without obstruction Status: Chronic Assessment and Plan: CT abdomen and pelvis shows cholelithiasis with intrahepatic and extrahepatic duct dilation, mild gallbladder and pancreatic duct dilation. No definitive mass or obstruction. Abdominal US - mild intrahepatic biliary dilation, cholelithiasis and dilated common bile duct. HIDA ordered on admission. MRCP with mildly dilated common bile duct, cholelithiasis, no choledocholithiasis 12/01/22 multiple episodes of bilious emesis today. Upper GI series without obstruction. Consider General Surgery consult due to CT scan results. Continue Zosyn IV as above. 12/03/22 Waiting for HIDA scan. Antibiotic day 5 of 7. Can be stopped if acute cholecystitis is ruled out. 12/04/22 patient having cholecystectomy today per general surgery note. 12/05/22 patient postop cholecystectomy day 1. Patient found to have mildly elevated LFTs on labs. This could be contributed patient's procedural complications noted in the surgery notes. Will continue to monitor the patient's labs. Plan to undergo subsequent surgery today due to bile duct injury. 12/06/22 patient underwent ERCP yesterday for bile duct leak repair. GI and General surgery both continuing to follow patient. Talked with general surgeon today and he advised patient be transferred to a tertiary facility. Surgery requesting transfer due to the amount of complication this patient has had post op. May need more care than what we offer in this facility. Surgeon has been in contact with [facility] and is going to stay in touch with me regarding patient's possible transfer. (4) COPD (chronic obstructive pulmonary disease): Qualifiers: COPD type: emphysema Emphysema type: unspecified Qualified Code(s): J43.9 - Emphysema, unspecified Code(s): J44.9 - Chronic obstructive pulmonary disease, unspecified Status: Chronic Assessment and Plan: Chronic, in acute exacerbation- wheezing and hypoxia noted on physical exam. Severe emphysema noted on CT scan. She is supposed to wear home O2 and per notes refuses. spO2 7
--- NOTE | 2022-12-06 09:26 | PCOTNOTE ---
Attempted to see patient for OT re-evaluation following laparoscopic cholecystectomy. Patient reporting that she is not feeling very well and is not up for working with therapy today. Declined any/all activity at this time. RN informed. Will continue to attempt.
--- NOTE | 2022-12-06 09:48 | PCRCNOTE ---
Pt. refusing scheduled Tx. all day. RN aware
[2022-12-06] MEDS: oxyCODONE HCL (*CRX) 5 MG TAB IR 10 MG PO (09:49)
--- NOTE | 2022-12-06 13:13 | WPDANESEPPF ---
Anes - Initial Pre Proc Eval Procedure: Operation Date: 12/04/22 13:30 Proposed Procedures p Laparoscopic Cholecystectomy - Casimiro Chamberlain MD Operation Date: 12/05/22 15:00 Proposed Procedures p Endoscopic Retro Cholangiopancreatogram - Philipp Norris MD Operation Date: 12/06/22 13:30 Proposed Procedures p Laparotomy for Repair of Bile Duct Leak - Casimiro Chamberlain MD Date/Time: 12/06/22 13:13 Surgeon: Jesus Martino MD Pre Op Diagnosis: Cholecystitis Patient Data Age: 67 Gender: F Height: 1.63 m Weight: 54 kg Last Vital Signs Temp 98.1 F 12/06/22 05:17 Pulse 116 H 12/06/22 05:17 Resp 20 12/06/22 05:17 BP 151/64 H 12/06/22 05:17 Pulse Ox 94 12/06/22 07:50 O2 Del Method Nasal Cannula 12/06/22 11:35 O2 Flow Rate 2 12/06/22 11:35 FiO2 32 12/05/22 08:00 Allergies Allergy/AdvReac Type Severity Reaction Status Date / Time vancomycin Allergy Rash Verified 12/05/22 13:57 Cephalosporins AdvReac Diarrhea Verified 12/05/22 13:57 Home Medications Medication Instructions Recorded Confirmed Type cyclobenzaprine 10 mg tablet 10 mg PO BID PRN Muscle Spasm 08/27/22 11/29/22 History oxybutynin chloride 5 mg 5 mg PO DAILY 08/27/22 11/29/22 History tablet,extended release 24 hr oxycodone 10 mg tablet 10 mg PO TID 08/27/22 11/29/22 History pregabalin 100 mg capsule 100 mg PO DAILY 08/27/22 11/29/22 History sertraline 100 mg tablet 100 mg PO DAILY 08/27/22 11/29/22 History amlodipine 10 mg tablet 10 mg PO DAILY 09/13/22 11/29/22 History ferrous sulfate 325 mg (65 mg 325 mg PO DAILY 09/13/22 11/29/22 History iron) tablet (FeroSul) miconazole nitrate 2 % topical 1 applic topical BID #71 grams 09/16/22 11/29/22 Rx ointment umeclidinium 62.5 mcg/actuation 1 inh inhalation DAILY #30 ea 09/16/22 11/29/22 Rx blister powder for inhalation (Incruse Ellipta) Laboratory Tests 12/06/22 12/06/22 07:22 07:22 WBC 15.0 K/mm3 H K/mm3 (4.5-10.0) RBC 4.56 M/mm3 M/mm3 (4.2-5.4) Hgb 12.8 g/dL g/dL (12.0-15.0) Hct 38.6 % % (37.0-47.0) MCV 84.6 fl fl (80-100) MCH 28.1 pg pg (26-34) MCHC 33.2 g/dl g/dl (32-36) RDW 15.9 % H % (11.5-14.5) Plt Count 320 k/mm3 k/mm3 (150-375) MPV 11.1 fl H fl (7.4-10.4) Sodium 135 mmol/L L mmol/L (137-145) Potassium 4.9 mmol/L mmol/L (3.4-5.0) Chloride 108 mmol/L H mmol/L (98-107) Carbon Dioxide 24 mmol/L mmol/L (22-30) Anion Gap 3 mmol/L L mmol/L (8-16) BUN 10 mg/dL mg/dL (7-17) Creatinine 0.70 mg/dL mg/dL (0.7-1.0) Estim Creat Clear Calc 58 ml/min ml/min Estimated GFR > 60 (59 - ) Glucose 98 mg/dL mg/dL (65-110) Calcium 8.0 mg/dL L mg/dL (8.4-10.2) Total Bilirubin 1.2 mg/dL mg/dL (0.2-1.3) AST 67 U/L H U/L (14-36) ALT 54 U/L H U/L (6-35) Alkaline Phosphatase 84 U/L U/L (38-126) Total Protein 6.0 g/dL L g/dL (6.3-8.2) Albumin 3.1 g/dL L g/dL (3.5-5.1) Patient hx anesthesia problems: none Family hx anesthesia problems: none Results Review: All pre-operative results and documents have been reviewed as part of the pre-operative evaluation. [facility] Past Medical History Medical History Chronic back pain COPD (chronic obstructive pulmonary disease) Depression Foot drop Hypertension Iron deficiency anemia Neuropathy Overactive bladder Surgical History Surgical History H/O tubal ligation tubal repair after a tubal H/O umbilical hernia repair History of appendectomy History of foot surgery History of spinal fusion Family History Family History Other Heart disease Hypertension Social History Social History (Reviewed
[2022-12-06] MEDS: LACTATED RINGERS 1,000 ML 30 ML IV CONT ×2 (13:15→17:04)
[2022-12-06] MEDS: fentaNYL CITRATE INJ (*CRX) 100 MCG/2 ML VIAL 25 MCG IV PUSH ×7 (13:16→17:56)
--- NOTE | 2022-12-06 14:07 | WPDHPUPDATE1 ---
History and Physical Update Update Date/Time: 12/06/22 14:07 History and Physical has been reviewed, including an updated exam of the patient. There are NO changes in the patient's condition. Risks, benefits, and alternatives have been discussed and questions answered. Patient agrees to proceed with procedure.
--- NOTE | 2022-12-06 14:15 | PM.PNGS ---
Progress Note: A&P Assessment and Plan (1) Common bile duct leak: Code(s): K83.8 - Other specified diseases of biliary tract Status: Acute Assessment and Plan: Despite the negative cholangiogram and ERCP and placement of 10 Greek stent with sphincterotomy, patient leaking lots of bile and showing signs of bile peritonitis. I discussed with Dr. Norris. He does not feel additional ERCP here would be of benefit. I tried to transfer patient to [facility] but they are not able to accommodate. Most hospitals in the area that could do specialized therapeutic endoscopy are not accepting transfer patients. Patient seems to have bile peritonitis, after discussion with patient and her , have recommended going ahead with open repair of bile duct injury with T-tube and additional drainage. She agrees and we will go ahead this afternoon. (2) Cholelithiasis and acute cholecystitis with obstruction: Code(s): K80.01 - Calculus of gallbladder with acute cholecystitis with obstruction Status: Acute Assessment and Plan: Lap choly performed 12/04/2022. Subjective Subjective Date/Time Seen: 12/06/22 14:15 Patient reports: still having pain (Having a lot of abdominal pain), afebrile and other (Leaking a lot of bile into JOHN drain.) Interval history: More uncomfortable with abdominal pain today. Has been leaking quite a bit of bile into the JOHN drain since her ERCP. Exam Const: General: no acute distress, uncomfortable and thin GI: Inspection: non-distended, incision (Incisions dry and intact, bile in JOHN drain) and scaphoid GI Palp: Yes Soft to palpation, Yes Tenderness to palpation present (GI) (Diffusely), No Hernia present and No Palpable mass present Objective Data Vital Signs Vital Signs: Vital Signs - 24 hr 12/05/22 15:55 12/05/22 16:05 12/05/22 16:15 Temperature 36.9 C Pulse Rate 116 H 117 H 110 H Respiratory Rate 20 17 17 Blood Pressure 170/110 H 173/100 H 165/105 H Pulse Oximetry 94 94 94 Oxygen Delivery Simple Face Mask Simple Face Mask Nasal Cannula Oxygen Flow Rate 6 6 4 12/05/22 14:25 12/05/22 16:25 12/05/22 16:35 Temperature Pulse Rate 111 H 100 93 Respiratory Rate 20 13 13 Blood Pressure 173/97 H 173/97 H 163/90 H Pulse Oximetry 96 95 92 Oxygen Delivery Nasal Cannula Nasal Cannula Nasal Cannula Oxygen Flow Rate 2 2 2 12/05/22 16:45 12/05/22 16:55 12/05/22 17:35 Temperature 36.2 C L Pulse Rate 89 94 119 H Respiratory Rate 17 14 18 Blood Pressure 159/99 H 139/81 153/87 H Pulse Oximetry 95 96 90 Oxygen Delivery Nasal Cannula Nasal Cannula Oxygen Flow Rate 2 2 12/05/22 17:50 12/05/22 18:20 12/05/22 19:52 Temperature 36.7 C 36.6 C 36.4 C Pulse Rate 120 H 116 H 114 H Respiratory Rate 18 18 20 Blood Pressure 145/76 H 143/72 H 137/73 Pulse Oximetry 92 92 91 Oxygen Delivery Oxygen Flow Rate 12/05/22 20:35 12/05/22 20:00 12/05/22 23:30 Temperature 36.6 C Pulse Rate 132 H 110 H Respiratory Rate 20 Blood Pressure 140/91 H Pulse Oximetry 94 91 Oxygen Delivery Nasal Cannula Oxygen Flow Rate 2 12/06/22 00:02 12/06/22 05:17 12/05/22 20:00 Temperature 36.7 C Pulse Rate 116 H 127 H Respiratory Rate 20 Blood Pressure 151/64 H Pulse Oximetry 94 93 Oxygen Delivery Nasal Cannula Oxygen Flow Rate 3 12/06/22 00:00 12/06/22 04:00 12/06/22 07:50 Temperature Pulse Rate 109 H 116 H Respiratory Rate Blood Pressure Pulse Oximetry 94 Oxygen Delivery Nasal Cannula Oxygen Flow Rate 2 12/06/22 11:35 12/06/22 13:05 12/06/22 14:06 Temperature Pulse Rate 124 H 120 H Respiratory Rate 16 Blood Pressure 171/85 H Pulse Oximetry 91 100 Oxygen Delivery Nasal Cannula Nasal Cannula Nasal Cannula Oxygen Flow Rate 2 2 3 Intake/Output Intake/Output: Intake & Output 12/03/22 12/04/22 12/05/22 12/06/22 23:59 23:59 23:59 23:59 Intake Total 2950 1250 3150 1440 Output Total 5
--- NOTE | 2022-12-06 15:25 | WPDGIPROGNO ---
Progress Note: A&P Assessment and Plan (1) Cholelithiasis and acute cholecystitis with obstruction: Code(s): K80.01 - Calculus of gallbladder with acute cholecystitis with obstruction Status: Acute Assessment and Plan: Cholecystectomy was done Two days ago. Was complicated by an injury to the bile duct. ERCP yesterday did not show a definite leak. We did perform sphincterotomy and placed a 10 Mexican stent in the bile duct. (2) Opioid dependence with current use: Code(s): F11.20 - Opioid dependence, uncomplicated Status: Chronic Assessment and Plan: She uses opioids for back but she states that now it helps her with pain which is generalized. (3) COPD (chronic obstructive pulmonary disease): Qualifiers: COPD type: emphysema Emphysema type: unspecified Qualified Code(s): J43.9 - Emphysema, unspecified Code(s): J44.9 - Chronic obstructive pulmonary disease, unspecified Status: Chronic Assessment and Plan: On arrival to the emergency room her oxygen saturations originally were in the 70s. She is now comfortable on room air. (4) Common bile duct leak: Code(s): K83.8 - Other specified diseases of biliary tract Status: Acute Assessment and Plan: I discussed with her ERCP and stent placement. I explained that the rationale was to provide of passage for bile through the stent to allow the leak to heal over. I discussed the possible complications and risks of ERCP including pancreatitis which could be severe and could result in prolonged hospitalization and significant pain. I told her that there is risk of bleeding perforation but less than 1% each. She wishes to proceed with ERCP in order to get over this illness and to be able to eat. 12/06/2022 I discussed her persistent drainage of bile with Dr. Chamberlain. We are both perplexed by the fact that no leak was seen on the cholangiogram. The radiology report an ERCP simply mentions of fluoroscopy was used but there was no comment regarding her images that were taken. Nevertheless we feel that she would benefit from transfer to a tertiary care center if possible. Otherwise the option would be to perform an open exploratory here. Subjective Date/time seen: 12/06/22 15:25 patient was seen early this morning. She was still having copious up with to her drain with typical bile in the collection system. There was no blood. She continues to complain of diffuse pain. I did explain to her that we did not see a leak 1 8 did her cholangiogram. Exam Const: General: alert and uncomfortable Nutritional Appearance: thin Orientation/consciousness: patient oriented x3 Resp: Auscultation: clear to auscultation bilaterally Cardio: Rhythm: regular rhythm GI: GI Palp: Yes Soft to palpation, Yes Tenderness to palpation present (GI) ( Diffusely tender), Yes Guarding due to palpation present (GI) and No Ascites present Auscultation: normal bowel sounds Neuro: General: patient oriented x3 Objective Data Vital Signs Vital Signs: Vital Signs - 24 hr 12/05/22 15:55 12/05/22 16:05 12/05/22 16:15 Temperature 36.9 C Pulse Rate 116 H 117 H 110 H Respiratory Rate 20 17 17 Blood Pressure 170/110 H 173/100 H 165/105 H Pulse Oximetry 94 94 94 Oxygen Delivery Simple Face Mask Simple Face Mask Nasal Cannula Oxygen Flow Rate 6 6 4 12/05/22 16:25 12/05/22 16:35 12/05/22 16:45 Temperature Pulse Rate 100 93 89 Respiratory Rate 13 13 17 Blood Pressure 173/97 H 163/90 H 159/99 H Pulse Oximetry 95 92 95 Oxygen Delivery Nasal Cannula Nasal Cannula Nasal Cannula Oxygen Flow Rate 2 2 2 12/05/22 16:55 12/05/22 17:35 12/05/22 17:50 Temperature 36.2 C L 36.7 C Pulse Rate 94 119 H 120 H Respiratory Rate 14 18 18 Blood Pressure 139/81 153/87 H 145/76 H Pulse Oximetry 96 90 92 Oxygen Delivery Nasal Cannula Oxygen Flow Rate 2 12/05/22 18:20 12/05/22 19:52 12/05/22 20:35 Temperature 36.6
--- NOTE | 2022-12-06 17:30 | W.PM.PROC2 ---
Procedure Note - Detailed Date of Procedure 12/06/22 Pre-op Diagnosis Bile duct injury, bile leak Post-op Diagnosis Same Procedure Performed Repair bile duct, placement T-tube, T-tube cholangiogram Surgeon Casimiro Chamberlain MD Religious Assistant Stephania Sandhu [employer] Anesthesia General Indications Patient underwent a difficult laparoscopic cholecystectomy 2 days ago. During the surgery, the bile duct was quite dilated and stuck to the wall of the gallbladder. Bile duct was injured. It was clipped and a drain placed. Bile stone began leaking into the drain the day after surgery. Patient underwent an ERCP with stent placement but bile leakage increased and the patient was showing signs of peritonitis. She is taken back to surgery now for exploratory laparotomy, repair of bile duct injury. Findings The bile duct had areas of the wall which were flimsy and necrotic. There was more injury than was evident at the time of surgery. Anteriorly, there was an area about 1 cm of necrotic bile duct. The common hepatic duct laceration also was associated with some gangrenous bile duct tissue. This gangrenous tissue was excised. Fortunately the bile duct was quite dilated. The bile duct was repaired over a 14 Fr T-tube. T-tube cholangiogram suggested a filling defect in the distal common bile duct. There was duodenal flow and some extravasation but not a significant amount. Description of Procedure Patient was taken to surgery and induced into general anesthesia. The existing JOHN drain was removed. The abdomen was prepped and draped. A right subcostal incision was made and dissection was carried down through the abdominal wall layers. The rectus muscle was divided. We then entered the peritoneal cavity and extended the opening the length of the wound. There was a lot of bleeding from the abdominal wall, more than 1 would expect especially since we divided all the musculature with cautery. Some additional cautery was used. We then exposed the right upper quadrant including the gallbladder fossa and the dilated bile duct. Irrigation was carried out and suctioning. I was able to palpate the 10 Vincentian stent placed at endoscopy yesterday. I dissected the right hepatic artery with the clipped cystic duct from the common hepatic duct. I also dissected the cystic duct and common duct away from surrounding tissues. These ducts were still quite dilated. On the anterior aspect of the common hepatic duct there was an obvious leak with some gangrenous tissue there. I turned the bile duct and was able to see the area where the clips had been placed. This tissue also showed some gangrenous change which would continue to be a source of leakage if not removed. I then excised this gangrenous tissue from the anterior surface of the common hepatic duct. I removed the 10 Vincentian biliary stent once the bile duct was opened. Excision of this necrotic tissue ended at the beginning of the common bile duct. Further removal of this gangrenous duct tissue led to removing all but the posterior aspect of the bile duct wall. The posterior bile duct wall continued to connect the common bile duct and the common hepatic duct. I then extended the excision to include the gangrenous tissue on the medial posterior aspect of the common hepatic duct. At this point it looked like we had all healthy bile duct tissue. I closed the longitudinal opening in the common hepatic duct with interrupted 4-0 chromic suture. I then used 4-0 PDS suture in interrupted fashion to close the common hepatic duct to the common bile duct except for the anterior most opening. A 14 Vincentian T-Tube was then cut and each limb was placed in the common hepatic duct and bile duct. I then continued to use interrupted 4-0 PDS suture and closed the bile duct snugly up around the T-tube. I then flushed the T-tube with saline and discovered a small bile duct opening at the base of the gallbladder fossa that seemed to be separate from
[2022-12-06] MEDS: ONDANSETRON INJ 4 MG/2 ML VIAL IV PUSH (17:44)
[2022-12-06] MEDS: FENTANYL 600MCG/NS30MLPCA(*CRX 600 MCG/30 ML PCA.VIAL IV CONT (20:56)
--- NOTE | 2022-12-06 22:02 | PCRCNOTE ---
pt refuse TX for LAVERNE parekh present. Pt RR-14, Sp02 94% on 4L oxymask/simple mask.
[2022-12-06] MEDS: KCL 40 MEQ/0.9% SOD CHL 1,000 ML 100 ML IV CONT (23:00)
[2022-12-07] VITALS (14 sets, daily range): BP systolic 104–179; BP diastolic 65–98; PULSE 91–131; RESP 16–28; TEMP 36.5–36.9; O2SAT 91–97
[2022-12-07] MEDS: METOPROLOL TARTRATE INJ 5 MG/5 ML VIAL IV PUSH ×2 (02:46→10:34)
[2022-12-07] MEDS: cilostazoL 100 MG TABLET PO ×2 (06:14→16:40)
[2022-12-07 07:31] LABS: Basophils Absolute Auto 0.1 K/mm3 (0.0-0.1); Basophils Percent Auto 0.3 % (0.2-1.2); Eosinophils Percent Auto 0.2 % (0-4.4); Hematocrit 34.2 % (37.0-47.0); Hemoglobin 11.3 g/dL (12.0-15.0); Immature Granulocyte Absolute 0.09 K/mm3 (0.00-0.031); Immature Granulocyte Percent A 0.6 % (0-0.5); Lymphocytes Absolute Auto 1.62 K/mm3 (0.9-3.2); Lymphocytes Percent Auto 10.5 % (18.3-44.2); Mean Corpuscular Hemoglobin 28.5 pg (26-34); Mean Corpuscular Volume 86.1 fl (80-100); Mean Platelet Volume 11.5 fl (7.4-10.4); Monocytes Absolute Auto 1.1 K/mm3 (0.1-0.6); Monocytes Percent Auto 7.4 % (2.6-8.5); Neutrophils Absolute Auto 12.5 K/mm3 (1.3-6.7); Platelet Count Result 333 k/mm3 (150-375); Red Blood Count 3.97 M/mm3 (4.2-5.4); Red Cell Distribution Width 15.9 % (11.5-14.5); White Blood Count 15.4 K/mm3 (4.5-10.0)
[2022-12-07 07:57] LABS: Alanine Aminotransferase 41 U/L (6-35); Albumin Level 2.7 g/dL (3.5-5.1); Alkaline Phosphatase 70 U/L (38-126); Anion Gap 4 mmol/L (8-16); Aspartate Amino Transferase 50 U/L (14-36); Bilirubin,Total 0.6 mg/dL (0.2-1.3); Blood Urea Nitrogen 9 mg/dL (7-17); Calcium 7.8 mg/dL (8.4-10.2); Carbon Dioxide 25 mmol/L (22-30); Chloride 104 mmol/L (98-107); Estimated CRCL calculation 58 ml/min; Estimated Glomerular Filt Rate > 60; Glucose 105 mg/dL (65-110); Potassium 3.8 mmol/L (3.4-5.0); Sodium 133 mmol/L (137-145)
[2022-12-07] MEDS: amLODIPine BESYLATE 5 MG TABLET 10 MG PO (08:57)
[2022-12-07] MEDS: ASPIRIN 81 MG ENTERIC TABLET PO (08:57)
[2022-12-07] MEDS: PREGABALIN (*CRX) 50 MG CAPSULE 100 MG PO (08:57)
[2022-12-07] MEDS: SERTRALINE HCL 50 MG TABLET 100 MG PO (08:57)
[2022-12-07] MEDS: FERROUS SULFATE 324 MG TABLET PO (08:57)
[2022-12-07] MEDS: FAMOTIDINE 20 MG/2 ML VIAL IV PUSH ×2 (08:57→22:09)
[2022-12-07] MEDS: ENOXAPARIN 40 MG/0.4 ML SYRINGE SUB-Q (08:58)
[2022-12-07] MEDS: HYDROCORTISONE 1% 30 GM CREAM 1 APPLIC TOPICAL (08:58)
[2022-12-07] MEDS: ATORVASTATIN 40 MG TABLET PO (08:58)
[2022-12-07] MEDS: ALBUTEROL SULFATE NEB 2.5 MG/3 ML INH INHALATION (09:18)
--- NOTE | 2022-12-07 12:02 | PM.PNGS ---
Progress Note: A&P Assessment and Plan (1) Common bile duct leak: Code(s): K83.8 - Other specified diseases of biliary tract Status: Acute Assessment and Plan: s/p open CBD exploration and repair over T-tube 12/06/22. Continue ATTENDING PATHOLOGIST for pain management. Monitor drain output. Advance to full liquids today. [place] likely out tomorrow. (2) Cholelithiasis and acute cholecystitis with obstruction: Code(s): K80.01 - Calculus of gallbladder with acute cholecystitis with obstruction Status: Acute Assessment and Plan: Lap choly performed 12/04/2022. Subjective Subjective Date/Time Seen: 12/07/22 12:02 Interval history: Tolerating clear liquids. Still having a lot of pain. No fevers. Exam GI: GI Palp: Yes Soft to palpation and Yes Tenderness to palpation present (GI) (incisional) Other: JOHN drains with minimal serosanguinous and bilious drainage. T-tube with clear bile. Objective Data Vital Signs Vital Signs: Vital Signs - 24 hr 12/06/22 13:05 12/06/22 14:06 12/06/22 17:04 Temperature 37.2 C Pulse Rate 124 H 120 H 118 H Respiratory Rate 16 24 H Blood Pressure 171/85 H 169/98 H Pulse Oximetry 91 100 92 Oxygen Delivery Nasal Cannula Nasal Cannula Simple Face Mask Oxygen Flow Rate 2 3 10 12/06/22 17:20 12/06/22 17:35 12/06/22 17:50 Temperature Pulse Rate 117 H 119 H 108 H Respiratory Rate 14 14 12 Blood Pressure 167/98 H 163/88 H 131/75 Pulse Oximetry 90 92 97 Oxygen Delivery Simple Face Mask Simple Face Mask Simple Face Mask Oxygen Flow Rate 6 6 6 12/06/22 18:05 12/06/22 18:16 12/06/22 18:36 Temperature 36.9 C Pulse Rate 107 H 118 H 113 H Respiratory Rate 12 12 20 Blood Pressure 137/76 138/80 137/69 Pulse Oximetry 98 94 94 Oxygen Delivery Simple Face Mask Simple Face Mask Oxygen Flow Rate 6 6 12/06/22 20:56 12/06/22 20:06 12/06/22 22:04 Temperature 36.9 C Pulse Rate 128 H Respiratory Rate 12 16 22 H Blood Pressure 158/90 H Pulse Oximetry 94 91 94 Oxygen Delivery Oxygen Flow Rate 12/06/22 22:04 01/06/23 23:05 12/06/22 23:52 Temperature 36.4 C Pulse Rate 122 H 132 H Respiratory Rate 16 22 H 18 Blood Pressure 161/80 H Pulse Oximetry 94 81 L Oxygen Delivery Oxygen Flow Rate 12/07/22 02:46 12/07/22 03:03 12/07/22 04:00 Temperature Pulse Rate 130 H 126 H Respiratory Rate 28 H Blood Pressure Pulse Oximetry 91 Oxygen Delivery Oxygen Flow Rate 12/07/22 04:06 12/07/22 08:06 12/07/22 10:34 Temperature 36.9 C 36.7 C Pulse Rate 127 H 120 H 131 H Respiratory Rate 18 20 Blood Pressure 179/97 H 153/98 H Pulse Oximetry 94 97 Oxygen Delivery Oxygen Flow Rate 12/07/22 11:01 12/07/22 08:00 12/07/22 08:00 Temperature Pulse Rate 124 H Respiratory Rate Blood Pressure Pulse Oximetry 97 Oxygen Delivery Nasal Cannula Nasal Cannula Oxygen Flow Rate 4 6 Intake/Output Intake/Output: Intake & Output 12/04/22 12/05/22 12/06/22 12/07/22 23:59 23:59 23:59 23:59 Intake Total 1250 3150 2840 760 Output Total 540 1177 1415 Balance 1250 2610 1663 -865 Meds/Results Medications: Active Medications Generic Name Dose Route Start Last Admin Trade Name Freq PRN Reason Stop Dose Admin Acetaminophen 500 mg 12/04/22 17:27 Acetaminophen 500 Mg Tablet PO Q6H PRN Mild Pain (1-3) or Fever Albuterol 2.5 mg 11/30/22 08:00 12/07/22 09:18 Albuterol Sulfate Neb 2.5 Mg/3 Ml Inh INHALATION 2.5 mg Q6HRT FEMI Administration Amlodipine Besylate 10 mg 11/30/22 09:00 12/07/22 08:57 Amlodipine Besylate 5 Mg Tablet PO 10 mg DAILY FEMI Administration Aspirin 81 mg 12/01/22 09:00 12/07/22 08:57 Aspirin 81 Mg Enteric Tablet PO 81 mg QAM FEMI Administration Atorvastatin Calcium 40 mg 12/03/22 09:00 12/07/22 08:58 Atorvastatin 40 Mg Tablet PO 40 mg DAILY FEMI Administration Cilostazol 100 mg 12/03/22 08:45 12/07/22 06:14
--- NOTE | 2022-12-07 14:04 | P.PNIM_ITS ---
Progress Note: A&P Assessment and Plan (1) Sepsis: Qualifiers: Sepsis acute organ dysfunction status: without acute organ dysfunction Sepsis type: sepsis due to unspecified organism Qualified Code(s): A41.9 - S epsis, unspecified organism Code(s): A41.9 - Sepsis, unspecified organism Status: Acute Assessment and Plan: Patient presented to the ED and noted to have Temp 100.6F, HR 122, RR 28, spO2 78% RA, WBC 13, possible cellulitis or cholecystitis. * Lactic acid 1.4 * CRP 5.5 * Continue Zosyn IV Q6 hours, started 11/29 * continue IV hydration * Trend CBC and monitor temperature curve * PRN acetaminophen for fever. * Resolved. (2) Cellulitis of leg, left: Code(s): L03.116 - Cellulitis of left lower limb Status: Acute Assessment and Plan: Left leg noted to be red and excoriated. She has previously been treated with Primaxin IV and PO Bactrim following hospitalization 08/2022 and clindamycin PO x10 days 10/2022 from the ED. * Continue Zosyn IV Q6 hours. * Elevate LLE. * Wound care consulted and appreciate recommendations. * continue mupirocin ointment BID and add eucerin cream daily. * ABIs - severe PAD. L MAGDIEL 0.49, R MAGDIEL 0.53 Outpatient vascular evaluation warranted and discussed with patient and daughter. ASA 81 mg daily added. * 12/02/22 slightly improved. Will transition to oral antibiotics if HIDA scan is negative for acute cholecystitis. * 12/03/22 antibiotic day . * 12/04/22 antibiotic day 05/10 * 12/05/22 antibiotic day 06/09. Post op cholecystitis day 1. Cellulitis improving. Continue antibiotics. Per patient legs are improving. * 12/06/22 antibiotic day /. Patient's legs are continuing to improve * 12/07/2022 antibiotic day 08/10. Patient's legs continue to improve. (3) Cholelithiasis: Qualifiers: Cholelithiasis location: gallbladder Code(s): K80.20 - Calculus of gallbladder without cholecystitis without obstruction Status: Chronic Assessment and Plan: CT abdomen and pelvis shows cholelithiasis with intrahepatic and extrahepatic duct dilation, mild gallbladder and pancreatic duct dilation. No definitive mass or obstruction. * Abdominal US - mild intrahepatic biliary dilation, cholelithiasis and dilated common bile duct. * HIDA ordered on admission. * MRCP with mildly dilated common bile duct, cholelithiasis, no choledocholithiasis * 12/01/22 multiple episodes of bilious emesis today. Upper GI series without obstruction. * Consider General Surgery consult due to CT scan results. * Continue Zosyn IV as above. * 12/03/22 Waiting for HIDA scan. Antibiotic day 5 of 7. Can be stopped if acute cholecystitis is ruled out. * 12/04/22 patient having cholecystectomy today per general surgery note. * 12/05/22 patient postop cholecystectomy day 1. Patient found to have mildly elevated LFTs on labs. This could be contributed patient's procedural complications noted in the surgery notes. Will continue to monitor the patient's labs. * Plan to undergo subsequent surgery today due to bile duct injury. * 12/06/22 patient underwent ERCP yesterday for bile duct stent. GI and General surgery both continuing to follow patient. Talked with general surgeon today and he advised patient be transferred to a tertiary facility. Surgery requesting transfer due to the amount of complication this patient has had post op. May need more care than what we offer in this facility. Surgeon has been in contact with [facility] and is going to stay in touch with me regarding patient's possible transfer. * 12/07/22 Patient unable to be transferred yesterday
--- NOTE | 2022-12-07 14:04 | PM.IMPN ---
Progress Note: A&P Assessment and Plan (1) Sepsis: Qualifiers: Sepsis acute organ dysfunction status: without acute organ dysfunction Sepsis type: sepsis due to unspecified organism Qualified Code(s): A41.9 - Sepsis, unspecified organism Code(s): A41.9 - Sepsis, unspecified organism Status: Acute Assessment and Plan: Patient presented to the ED and noted to have Temp 100.6F, HR 122, RR 28, spO2 78% RA, WBC 13, possible cellulitis or cholecystitis. Lactic acid 1.4 CRP 5.5 Continue Zosyn IV Q6 hours, started 11/29 continue IV hydration Trend CBC and monitor temperature curve PRN acetaminophen for fever. Resolved. (2) Cellulitis of leg, left: Code(s): L03.116 - Cellulitis of left lower limb Status: Acute Assessment and Plan: Left leg noted to be red and excoriated. She has previously been treated with Primaxin IV and PO Bactrim following hospitalization 08/2022 and clindamycin PO x10 days 10/2022 from the ED. Continue Zosyn IV Q6 hours. Elevate LLE. Wound care consulted and appreciate recommendations. continue mupirocin ointment BID and add eucerin cream daily. ABIs - severe PAD. L MAGDIEL 0.49, R MAGDIEL 0.53 Outpatient vascular evaluation warranted and discussed with patient and daughter. ASA 81 mg daily added. 12/02/22 slightly improved. Will transition to oral antibiotics if HIDA scan is negative for acute cholecystitis. 12/03/22 antibiotic day 5 of 10. 12/04/22 antibiotic day 05/1012/05/22 antibiotic day 06/09. Post op cholecystitis day 1. Cellulitis improving. Continue antibiotics. Per patient legs are improving. 12/06/22 antibiotic day 8/10. Patient's legs are continuing to improve 12/07/2022 antibiotic day 08/10. Patient's legs continue to improve. (3) Cholelithiasis: Qualifiers: Cholelithiasis location: gallbladder Code(s): K80.20 - Calculus of gallbladder without cholecystitis without obstruction Status: Chronic Assessment and Plan: CT abdomen and pelvis shows cholelithiasis with intrahepatic and extrahepatic duct dilation, mild gallbladder and pancreatic duct dilation. No definitive mass or obstruction. Abdominal US - mild intrahepatic biliary dilation, cholelithiasis and dilated common bile duct. HIDA ordered on admission. MRCP with mildly dilated common bile duct, cholelithiasis, no choledocholithiasis 12/01/22 multiple episodes of bilious emesis today. Upper GI series without obstruction. Consider General Surgery consult due to CT scan results. Continue Zosyn IV as above. 12/03/22 Waiting for HIDA scan. Antibiotic day 5 of 7. Can be stopped if acute cholecystitis is ruled out. 12/04/22 patient having cholecystectomy today per general surgery note. 12/05/22 patient postop cholecystectomy day 1. Patient found to have mildly elevated LFTs on labs. This could be contributed patient's procedural complications noted in the surgery notes. Will continue to monitor the patient's labs. Plan to undergo subsequent surgery today due to bile duct injury. 12/06/22 patient underwent ERCP yesterday for bile duct stent. GI and General surgery both continuing to follow patient. Talked with general surgeon today and he advised patient be transferred to a tertiary facility. Surgery requesting transfer due to the amount of complication this patient has had post op. May need more care than what we offer in this facility. Surgeon has been in contact with [facility] and is going to stay in touch with me regarding patient's possible transfer. 12/07/22 Patient unable to be transferred yesterday and Dr. Chamberlain decided to take patient back into surgery ,due to peritoneal signs, for repair of the bile duct, placement of a T-tube and T-tube cholangiogram. Patient's bile duct was found to be necrotic in this was taking care of in surgery. (4) COPD (chronic obstructive pulmonary disease): Qualifiers: COPD type: emphysema Emphysema type: unsp
[2022-12-07] MEDS: oxyCODONE HCL (*CRX) 5 MG TAB IR 10 MG PO (14:37)
[2022-12-07] MEDS: FENTANYL 600MCG/NS30MLPCA(*CRX 600 MCG/30 ML PCA.VIAL IV CONT (22:03)
[2022-12-07] MEDS: KCL 40 MEQ/0.9% SOD CHL 1,000 ML 100 ML IV CONT (22:09)
[2022-12-08] VITALS (12 sets, daily range): BP systolic 100–150; BP diastolic 64–84; PULSE 99–133; RESP 18–20; TEMP 36.2–37; O2SAT 93–96
[2022-12-08] MEDS: cilostazoL 100 MG TABLET PO ×2 (05:41→15:29)
[2022-12-08 07:00] LABS: Hematocrit 28.6 % (37.0-47.0); Hemoglobin 9.6 g/dL (12.0-15.0); Mean Corpuscular HGB Conc 33.6 g/dl (32-36); Mean Corpuscular Hemoglobin 28.2 pg (26-34); Mean Corpuscular Volume 84.1 fl (80-100); Mean Platelet Volume 11.3 fl (7.4-10.4); Platelet Count Result 320 k/mm3 (150-375); Red Cell Distribution Width 15.8 % (11.5-14.5); White Blood Count 12.1 K/mm3 (4.5-10.0)
[2022-12-08 07:07] LABS: Anion Gap 4 mmol/L (8-16); Blood Urea Nitrogen 8 mg/dL (7-17); Calcium 7.2 mg/dL (8.4-10.2); Carbon Dioxide 23 mmol/L (22-30); Chloride 106 mmol/L (98-107); Estimated CRCL calculation 58 ml/min; Estimated Glomerular Filt Rate > 60; Glucose 112 mg/dL (65-110); Potassium 3.9 mmol/L (3.4-5.0); Sodium 133 mmol/L (137-145)
--- NOTE | 2022-12-08 08:24 | P.PNIM_ITS ---
Progress Note: A&P Assessment and Plan (1) Sepsis: Qualifiers: Sepsis acute organ dysfunction status: without acute organ dysfunction Sepsis type: sepsis due to unspecified organism Qualified Code(s): A41.9 - S epsis, unspecified organism Code(s): A41.9 - Sepsis, unspecified organism Status: Acute Assessment and Plan: Patient presented to the ED and noted to have Temp 100.6F, HR 122, RR 28, spO2 78% RA, WBC 13, possible cellulitis or cholecystitis. * Lactic acid 1.4 * CRP 5.5 * Continue Zosyn IV Q6 hours, started 11/29 * continue IV hydration * Trend CBC and monitor temperature curve * PRN acetaminophen for fever. * Resolved. (2) Cellulitis of leg, left: Code(s): L03.116 - Cellulitis of left lower limb Status: Acute Assessment and Plan: Left leg noted to be red and excoriated. She has previously been treated with Primaxin IV and PO Bactrim following hospitalization 08/2022 and clindamycin PO x10 days 10/2022 from the ED. * Continue Zosyn IV Q6 hours. * Elevate LLE. * Wound care consulted and appreciate recommendations. * continue mupirocin ointment BID and add eucerin cream daily. * ABIs - severe PAD. L MAGDIEL 0.49, R MAGDIEL 0.53 Outpatient vascular evaluation warranted and discussed with patient and daughter. ASA 81 mg daily added. * 12/02/22 slightly improved. Will transition to oral antibiotics if HIDA scan is negative for acute cholecystitis. * 12/03/22 antibiotic day . * 12/04/22 antibiotic day 05/10 * 12/05/22 antibiotic day 06/09. Post op cholecystitis day 1. Cellulitis improving. Continue antibiotics. Per patient legs are improving. * 12/06/22 antibiotic day 8/10. Patient's legs are continuing to improve * 12/07/2022 antibiotic day /. Patient's legs continue to improve. * 12/08/2022 antibiotic day 09/09. After today patient's antibiotics will be DC. (3) Cholelithiasis: Qualifiers: Cholelithiasis location: gallbladder Code(s): K80.20 - Calculus of gallbladder without cholecystitis without obstruction Status: Chronic Assessment and Plan: CT abdomen and pelvis shows cholelithiasis with intrahepatic and extrahepatic duct dilation, mild gallbladder and pancreatic duct dilation. No definitive mass or obstruction. * Abdominal US - mild intrahepatic biliary dilation, cholelithiasis and dilated common bile duct. * HIDA ordered on admission. * MRCP with mildly dilated common bile duct, cholelithiasis, no choledocholithiasis * 12/01/22 multiple episodes of bilious emesis today. Upper GI series without obstruction. * Consider General Surgery consult due to CT scan results. * Continue Zosyn IV as above. * 12/03/22 Waiting for HIDA scan. Antibiotic day 5 of 7. Can be stopped if acute cholecystitis is ruled out. * 12/04/22 patient having cholecystectomy today per general surgery note. * 12/05/22 patient postop cholecystectomy day 1. Patient found to have mildly elevated LFTs on labs. This could be contributed patient's procedural complications noted in the surgery notes. Will continue to monitor the patient's labs. * Plan to undergo subsequent surgery today due to bile duct injury. * 12/06/22 patient underwent ERCP yesterday for bile duct stent. GI and General surgery both continuing to follow patient. Talked with general surgeon today and he advised patient be transferred to a tertiary facility. Surgery requesting transfer due to the amount of complication this patient has had post op. May need more care than what we offer in this facility. Surgeon has been in contact with [facility] and is going to stay in touch with me re
--- NOTE | 2022-12-08 08:24 | PM.IMPN ---
Progress Note: A&P Assessment and Plan (1) Sepsis: Qualifiers: Sepsis acute organ dysfunction status: without acute organ dysfunction Sepsis type: sepsis due to unspecified organism Qualified Code(s): A41.9 - Sepsis, unspecified organism Code(s): A41.9 - Sepsis, unspecified organism Status: Acute Assessment and Plan: Patient presented to the ED and noted to have Temp 100.6F, HR 122, RR 28, spO2 78% RA, WBC 13, possible cellulitis or cholecystitis. Lactic acid 1.4 CRP 5.5 Continue Zosyn IV Q6 hours, started 11/29 continue IV hydration Trend CBC and monitor temperature curve PRN acetaminophen for fever. Resolved. (2) Cellulitis of leg, left: Code(s): L03.116 - Cellulitis of left lower limb Status: Acute Assessment and Plan: Left leg noted to be red and excoriated. She has previously been treated with Primaxin IV and PO Bactrim following hospitalization 08/2022 and clindamycin PO x10 days 10/2022 from the ED. Continue Zosyn IV Q6 hours. Elevate LLE. Wound care consulted and appreciate recommendations. continue mupirocin ointment BID and add eucerin cream daily. ABIs - severe PAD. L MAGDIEL 0.49, R MAGDIEL 0.53 Outpatient vascular evaluation warranted and discussed with patient and daughter. ASA 81 mg daily added. 12/02/22 slightly improved. Will transition to oral antibiotics if HIDA scan is negative for acute cholecystitis. 12/03/22 antibiotic day 5 of 10. 12/04/22 antibiotic day 05/1012/05/22 antibiotic day 06/09. Post op cholecystitis day 1. Cellulitis improving. Continue antibiotics. Per patient legs are improving. 12/06/22 antibiotic day 8/10. Patient's legs are continuing to improve 12/07/2022 antibiotic day /. Patient's legs continue to improve. 12/08/2022 antibiotic day 09/09. After today patient's antibiotics will be DC. (3) Cholelithiasis: Qualifiers: Cholelithiasis location: gallbladder Code(s): K80.20 - Calculus of gallbladder without cholecystitis without obstruction Status: Chronic Assessment and Plan: CT abdomen and pelvis shows cholelithiasis with intrahepatic and extrahepatic duct dilation, mild gallbladder and pancreatic duct dilation. No definitive mass or obstruction. Abdominal US - mild intrahepatic biliary dilation, cholelithiasis and dilated common bile duct. HIDA ordered on admission. MRCP with mildly dilated common bile duct, cholelithiasis, no choledocholithiasis 12/01/22 multiple episodes of bilious emesis today. Upper GI series without obstruction. Consider General Surgery consult due to CT scan results. Continue Zosyn IV as above. 12/03/22 Waiting for HIDA scan. Antibiotic day 5 of 7. Can be stopped if acute cholecystitis is ruled out. 12/04/22 patient having cholecystectomy today per general surgery note. 12/05/22 patient postop cholecystectomy day 1. Patient found to have mildly elevated LFTs on labs. This could be contributed patient's procedural complications noted in the surgery notes. Will continue to monitor the patient's labs. Plan to undergo subsequent surgery today due to bile duct injury. 12/06/22 patient underwent ERCP yesterday for bile duct stent. GI and General surgery both continuing to follow patient. Talked with general surgeon today and he advised patient be transferred to a tertiary facility. Surgery requesting transfer due to the amount of complication this patient has had post op. May need more care than what we offer in this facility. Surgeon has been in contact with [facility] and is going to stay in touch with me regarding patient's possible transfer. 12/07/22 Patient unable to be transferred and Dr. Chamberlain decided to take patient back into surgery ,due to peritoneal signs, for repair of the bile duct, placement of a T-tube and T-tube cholangiogram. Patient postop day 1. Patient's bile duct was found to be necrotic in this was taking care of in surgery. 12/08/2022 patient postop ceasar
--- NOTE | 2022-12-08 08:41 | PCRCNOTE ---
Pt. refusing all respiratory treatments for 12/08. RN aware
[2022-12-08] MEDS: PREGABALIN (*CRX) 50 MG CAPSULE 100 MG PO (08:58)
[2022-12-08] MEDS: amLODIPine BESYLATE 5 MG TABLET 10 MG PO (08:58)
[2022-12-08] MEDS: FERROUS SULFATE 324 MG TABLET PO (08:58)
[2022-12-08] MEDS: SERTRALINE HCL 50 MG TABLET 100 MG PO (08:58)
[2022-12-08] MEDS: ATORVASTATIN 40 MG TABLET PO (08:58)
[2022-12-08] MEDS: ASPIRIN 81 MG ENTERIC TABLET PO (08:58)
[2022-12-08] MEDS: HYDROCORTISONE 1% 30 GM CREAM 1 APPLIC TOPICAL (08:59)
[2022-12-08] MEDS: FAMOTIDINE 20 MG/2 ML VIAL IV PUSH (08:59)
[2022-12-08] MEDS: ENOXAPARIN 40 MG/0.4 ML SYRINGE SUB-Q (08:59)
[2022-12-08] MEDS: KCL 40 MEQ/0.9% SOD CHL 1,000 ML 100 ML IV CONT ×2 (09:06→21:20)
[2022-12-08] MEDS: METOPROLOL TARTRATE INJ 5 MG/5 ML VIAL IV PUSH ×2 (09:06→18:36)
[2022-12-08] MEDS: CALCIUM CARBONATE (TUMS) 500 MG (200 MG ELEMENTAL) PO (11:03)
--- NOTE | 2022-12-08 12:20 | PM.PNGS ---
Progress Note: A&P Assessment and Plan (1) Common bile duct leak: Code(s): K83.8 - Other specified diseases of biliary tract Status: Acute Assessment and Plan: s/p open CBD exploration and repair over T-tube 12/06/22. Continue MEDICAL DETAIL REPRESENTATIVE for pain management. Monitor drain output. [place]wick out today. Continue full liquids until bowel function is returning. (2) Cholelithiasis and acute cholecystitis with obstruction: Code(s): K80.01 - Calculus of gallbladder with acute cholecystitis with obstruction Status: Acute Assessment and Plan: Lap choly performed 12/04/2022. Subjective Subjective Date/Time Seen: 12/08/22 12:20 Interval history: Still having a lot of incisional pain, but slightly improving. No flatus or BM yet. Tolerating full liquids. Exam GI: Inspection: incision ( Intact with ciaran, no drainage) GI Palp: Yes Soft to palpation and Yes Tenderness to palpation present (GI) (incisional) Other: 1 of the JOHN drains has minimal serosanguineous output, the other still appears bilious. T-tube with clear bile. Urinary Catheter: Urinary Catheter: patent and draining and urine clear Objective Data Vital Signs Vital Signs: Vital Signs - 24 hr 12/07/22 16:00 12/07/22 14:00 12/07/22 22:03 Temperature 36.7 C Pulse Rate 112 H 121 H Respiratory Rate 20 16 Blood Pressure 158/87 H Pulse Oximetry 91 91 Oxygen Delivery Oxygen Flow Rate 12/07/22 22:00 12/07/22 21:00 12/08/22 00:02 Temperature 36.5 C 36.2 C L Pulse Rate 91 107 H 104 H Respiratory Rate 18 20 Blood Pressure 104/65 149/77 H Pulse Oximetry 95 93 Oxygen Delivery Oxygen Flow Rate 12/08/22 00:00 12/08/22 04:00 12/08/22 05:45 Temperature 36.3 C L Pulse Rate 99 112 H 117 H Respiratory Rate 18 Blood Pressure 122/72 Pulse Oximetry 94 Oxygen Delivery Oxygen Flow Rate 12/08/22 09:06 12/08/22 08:00 12/08/22 08:00 Temperature Pulse Rate 130 H 120 H Respiratory Rate Blood Pressure Pulse Oximetry 94 Oxygen Delivery Nasal Cannula Oxygen Flow Rate 2 Intake/Output Intake/Output: Intake & Output 01/0512/06/22 12/07/22 12/08/22 23:59 23:59 23:59 23:59 Intake Total 3150 2840 2431 1691 Output Total 709 1177 2550 1050 Balance 2610 4968 -576 683 Meds/Results Medications: Active Medications Generic Name Dose Route Start Last Admin Trade Name Freq PRN Reason Stop Dose Admin Acetaminophen 500 mg 12/04/22 17:27 Acetaminophen 500 Mg Tablet PO Q6H PRN Mild Pain (1-3) or Fever Albuterol 2.5 mg 11/30/22 08:00 12/08/22 08:40 Albuterol Sulfate Neb 2.5 Mg/3 Ml Inh INHALATION Not Given Q6HRT [facility] Amlodipine Besylate 10 mg 11/30/22 09:00 12/08/22 08:58 Amlodipine Besylate 5 Mg Tablet PO 10 mg DAILY [facility] Administration Aspirin 81 mg 12/01/22 09:00 12/08/22 08:58 Aspirin 81 Mg Enteric Tablet PO 81 mg QAM [facility] Administration Atorvastatin Calcium 40 mg 12/03/22 09:00 12/08/22 08:58 Atorvastatin 40 Mg Tablet PO 40 mg DAILY [facility] Administration Calcium Carbonate 200 mg 12/08/22 10:17 12/08/22 11:03 Calcium Carbonate (Tums) 500 Mg (200 Mg Elemental) PO 200 mg Q6H PRN Administration Indigestion Cilostazol 100 mg 12/03/22 08:45 12/08/22 05:41 Cilostazol 100 Mg Tablet PO 100 mg BIDAC [facility] Administration Cyclobenzaprine HCl 10 mg 11/29/22 16:16 Cyclobenzaprine Hcl 10 Mg Tablet PO BID PRN Muscle Spasm Enoxaparin Sodium 40 mg 11/30/22 09:00 12/08/22 08:59 Enoxaparin 40 Mg/0.4 Ml Syringe SUB-Q 40 mg DAILY [facility] Administration Ferrous Sulfate 324 mg 11/30/22 09:00 12/08/22 08:58 Ferrous Sulfate 324 Mg Tablet PO 324 mg DAILY [facility] Administration Hydrocortisone 1 applic 12/01/22 21:00 12/08/22 08:59 Hydrocortisone 1% 30 Gm Cream TOPICAL 1 applic Q12HR [facility] Administration Piperacillin/Tazobactam/Dextrose 3.375 gm in 50 mls @ 100 mls/hr
[2022-12-08] MEDS: oxyCODONE HCL (*CRX) 5 MG TAB IR 10 MG PO ×2 (15:29→21:30)
[2022-12-08] MEDS: PANTOPRAZOLE 40 MG TABLET PO (21:24)
[2022-12-09] VITALS (15 sets, daily range): BP systolic 133–136; BP diastolic 60–80; PULSE 119–146; RESP 18–24; O2SAT 90–94; BMI 20.4
[2022-12-09] MEDS: METOPROLOL TARTRATE INJ 5 MG/5 ML VIAL IV PUSH ×3 (02:07→21:14)
[2022-12-09] MEDS: FENTANYL 600MCG/NS30MLPCA(*CRX 600 MCG/30 ML PCA.VIAL IV CONT (02:59)
[2022-12-09] MEDS: oxyCODONE HCL (*CRX) 5 MG TAB IR 10 MG PO ×4 (03:29→18:03)
[2022-12-09] MEDS: cilostazoL 100 MG TABLET PO ×2 (06:44→16:37)
[2022-12-09 06:54] LABS: Hematocrit 27.6 % (37.0-47.0); Hemoglobin 9.1 g/dL (12.0-15.0); Mean Corpuscular Hemoglobin 28.9 pg (26-34); Mean Corpuscular Volume 87.6 fl (80-100); Mean Platelet Volume 10.8 fl (7.4-10.4); Platelet Count Result 372 k/mm3 (150-375); Red Blood Count 3.15 M/mm3 (4.2-5.4); Red Cell Distribution Width 15.7 % (11.5-14.5); White Blood Count 13.6 K/mm3 (4.5-10.0)
[2022-12-09 07:00] LABS: Alanine Aminotransferase 25 U/L (6-35); Albumin Level 2.5 g/dL (3.5-5.1); Alkaline Phosphatase 79 U/L (38-126); Anion Gap 1 mmol/L (8-16); Aspartate Amino Transferase 32 U/L (14-36); Bilirubin,Total 0.4 mg/dL (0.2-1.3); Blood Urea Nitrogen 5 mg/dL (7-17); Calcium 7.4 mg/dL (8.4-10.2); Carbon Dioxide 22 mmol/L (22-30); Chloride 105 mmol/L (98-107); Estimated CRCL calculation 67 ml/min; Estimated Glomerular Filt Rate > 60; Glucose 100 mg/dL (65-110); Potassium 4.5 mmol/L (3.4-5.0); Sodium 128 mmol/L (137-145)
[2022-12-09] MEDS: KCL 40 MEQ/0.9% SOD CHL 1,000 ML 100 ML IV CONT (07:35)
--- NOTE | 2022-12-09 08:29 | PM.PNGS ---
Progress Note: A&P Assessment and Plan (1) Common bile duct leak: Code(s): K83.8 - Other specified diseases of biliary tract Status: Acute Assessment and Plan: draining bile per T-tube as well as per right-sided JOHN drain. Left-sided JOHN looks mostly sanguinous and amounts are much decreased. Abdominal pain seems to be coming from suturing JOHN drains to abdominal wall. Will advance diet to regular. Continue to monitor drain output and continue IV antibiotics. Will likely get T-Tube cholangiogram and a few days. Hopefully JOHN output on the right side which is mostly bile will start to diminish. (2) Cholelithiasis and acute cholecystitis with obstruction: Code(s): K80.01 - Calculus of gallbladder with acute cholecystitis with obstruction Status: Acute Assessment and Plan: Status post difficult laparoscopic cholecystectomy. (3) Tachycardia: Code(s): R00.0 - Tachycardia, unspecified Status: Acute Assessment and Plan: Persistent tachycardia, heart rate 120 (4) Opioid dependence with current use: Code(s): F11.20 - Opioid dependence, uncomplicated Status: Chronic Assessment and Plan: change narcotic to home doses with 10 mg OxyContin q.12 and oxycodone t.i.d.. Discontinue fentanyl as patient says it is not helping. Explained that suture sites to drains is unlikely to be improved much with analgesics. Will get better with time. (5) COPD (chronic obstructive pulmonary disease): Qualifiers: COPD type: emphysema Emphysema type: unspecified Qualified Code(s): J43.9 - Emphysema, unspecified Code(s): J44.9 - Chronic obstructive pulmonary disease, unspecified Status: Chronic Assessment and Plan: Stable at present (6) Ischemic rest pain of lower extremity: Code(s): M79.606 - Pain in leg, unspecified; I99.8 - Other disorder of circulatory system Status: Chronic Assessment and Plan: on Pletal. No complaints of leg pain. Subjective Subjective Date/Time Seen: 12/09/22 08:29 Post Op day: 3 Patient reports: still having pain ( fentanyl [employer] not helping, patient takes OxyContin 10 mg q.12 as well as oxycodone 10 mg t.i.d. daily at home for shoulder pain. She prefers to have these oral medications.), tolerating liquids well ( Wants solid food), no bowel movement and afebrile Review of Systems Review of Systems: All systems reviewed & are unremarkable except as noted in HPI and below ( HPI) Exam Const: General: comfortable, no acute distress, alert, awake and thin; No confusion Orientation/consciousness: patient oriented x3 and No confusion GI: Inspection: incision ( healing well) and other ( left JOHN small amount and bloody. Right JOHN and T-tube draining bile) GI Palp: Yes Soft to palpation, Yes Tenderness to palpation present (GI) ( suture sites of drains is source of pain and tenderness), No Guarding due to palpation present (GI) and No Rebound tenderness present Auscultation: normal bowel sounds Neuro: General: patient oriented x3, no focal motor deficits and No confusion Extrem: General: no calf tenderness and no edema Psych: Affect: normal affect Insight: Good insight present (Psych) Judgement: Good judgement present (Psych) Objective Data Vital Signs Vital Signs: Vital Signs - 24 hr 12/08/22 09:06 12/08/22 12:00 12/08/22 14:00 Temperature 37.0 C Pulse Rate 130 H 122 H 123 H Respiratory Rate 18 Blood Pressure 100/64 Pulse Oximetry 96 12/08/22 16:00 12/08/22 18:36 12/08/22 21:26 Temperature 36.3 C L Pulse Rate 129 H 133 H 122 H Respiratory Rate 18 Blood Pressure 150/84 H Pulse Oximetry 94 12/09/22 02:07 12/09/22 02:59 12/08/22 20:00 Temperature Pulse Rate 132 H 121 H Respiratory Rate 18 Blood Pressure Pulse Oximetry 94 12/09/22 00:00 12/09/22 04:00 Temperature Pulse Rate 131 H 119 H Respiratory Rate Blood Pressure Pulse Oxime
[2022-12-09] MEDS: SERTRALINE HCL 50 MG TABLET 100 MG PO (09:17)
[2022-12-09] MEDS: ATORVASTATIN 40 MG TABLET PO (09:17)
[2022-12-09] MEDS: amLODIPine BESYLATE 5 MG TABLET 10 MG PO (09:17)
[2022-12-09] MEDS: PANTOPRAZOLE 40 MG TABLET PO (09:17)
[2022-12-09] MEDS: ENOXAPARIN 40 MG/0.4 ML SYRINGE SUB-Q (09:17)
[2022-12-09] MEDS: FERROUS SULFATE 324 MG TABLET PO (09:17)
[2022-12-09] MEDS: ASPIRIN 81 MG ENTERIC TABLET PO (09:17)
[2022-12-09] MEDS: HYDROCORTISONE 1% 30 GM CREAM 1 APPLIC TOPICAL ×2 (09:18→21:33)
[2022-12-09] MEDS: oxyCODONE HCL (*CRX) 10 MG TAB SR 12HR PO ×2 (09:22→21:33)
--- NOTE | 2022-12-09 10:57 | PCOTNOTE ---
Attempted to see patient this am, however patient refused stating she already completed ADLs, sat up in chair, and worked with physical therapy.Pt stated, I owe him later, because he helped me back to bed. Pt reported just taking pain medicine about 20 minutes ago and wanted to take a nap.
--- NOTE | 2022-12-09 13:56 | P.PNIM_ITS ---
Progress Note: A&P Assessment and Plan (1) Sepsis: Qualifiers: Sepsis acute organ dysfunction status: without acute organ dysfunction Sepsis type: sepsis due to unspecified organism Qualified Code(s): A41.9 - S epsis, unspecified organism Code(s): A41.9 - Sepsis, unspecified organism Status: Acute Assessment and Plan: Patient presented to the ED and noted to have Temp 100.6F, HR 122, RR 28, spO2 78% RA, WBC 13, possible cellulitis or cholecystitis. * Lactic acid 1.4 * CRP 5.5 * Continue Zosyn IV Q6 hours, started 11/29 * continue IV hydration * Trend CBC and monitor temperature curve * PRN acetaminophen for fever. * Resolved. (2) Cellulitis of leg, left: Code(s): L03.116 - Cellulitis of left lower limb Status: Acute Assessment and Plan: Left leg noted to be red and excoriated. She has previously been treated with Primaxin IV and PO Bactrim following hospitalization 08/2022 and clindamycin PO x10 days 10/2022 from the ED. * Continue Zosyn IV Q6 hours. * Elevate LLE. * Wound care consulted and appreciate recommendations. * continue mupirocin ointment BID and add eucerin cream daily. * ABIs - severe PAD. L MAGDIEL 0.49, R MAGDIEL 0.53 Outpatient vascular evaluation warranted and discussed with patient and daughter. ASA 81 mg daily added. * 12/02/22 slightly improved. Will transition to oral antibiotics if HIDA scan is negative for acute cholecystitis. * 12/03/22 antibiotic day . * 12/04/22 antibiotic day 05/10 * 12/05/22 antibiotic day 06/09. Post op cholecystitis day 1. Cellulitis improving. Continue antibiotics. Per patient legs are improving. * 12/06/22 antibiotic day /. Patient's legs are continuing to improve * 12/07/2022 antibiotic day 08/10. Patient's legs continue to improve. * 12/08/2022 antibiotic day 09/09. * 12/09/22 patient's antibiotic will be continued per surgery recommendations. (3) Cholelithiasis: Qualifiers: Cholelithiasis location: gallbladder Code(s): K80.20 - Calculus of gallbladder without cholecystitis without obstruction Status: Chronic Assessment and Plan: CT abdomen and pelvis shows cholelithiasis with intrahepatic and extrahepatic duct dilation, mild gallbladder and pancreatic duct dilation. No definitive mass or obstruction. * Abdominal US - mild intrahepatic biliary dilation, cholelithiasis and dilated common bile duct. * HIDA ordered on admission. * MRCP with mildly dilated common bile duct, cholelithiasis, no choledocholithiasis 12/01/22 * multiple episodes of bilious emesis today. Upper GI series without obstruction. * Consider General Surgery consult due to CT scan results. * Continue Zosyn IV as above. 12/03/22 * Waiting for HIDA scan. Antibiotic day 5 of 7. Can be stopped if acute cholecystitis is ruled out. 12/04/22 * patient having cholecystectomy today per general surgery note. 12/05/22 * patient postop cholecystectomy day 1. * Patient found to have mildly elevated LFTs on labs. * This could be contributed patient's procedural complications noted in the surgery notes. * Will continue to monitor the patient's labs. * Patient will undergo ERCP with bile duct stent placement today. 12/06/22 * Postop day 1 ERCP with bile duct stent placement. * GI and General surgery both continuing to follow patient. * Surgeon had discussed possible transfer today * Unable to transfer patient and she was taken into surgery for laparoscopic bile duct repair. 12/07/22 * Patient unable to be transferred and Dr. Chamberlain decided to take patient back into surgery ,due to periton
--- NOTE | 2022-12-09 13:56 | PM.IMPN ---
Progress Note: A&P Assessment and Plan (1) Sepsis: Qualifiers: Sepsis acute organ dysfunction status: without acute organ dysfunction Sepsis type: sepsis due to unspecified organism Qualified Code(s): A41.9 - Sepsis, unspecified organism Code(s): A41.9 - Sepsis, unspecified organism Status: Acute Assessment and Plan: Patient presented to the ED and noted to have Temp 100.6F, HR 122, RR 28, spO2 78% RA, WBC 13, possible cellulitis or cholecystitis. Lactic acid 1.4 CRP 5.5 Continue Zosyn IV Q6 hours, started 11/29 continue IV hydration Trend CBC and monitor temperature curve PRN acetaminophen for fever. Resolved. (2) Cellulitis of leg, left: Code(s): L03.116 - Cellulitis of left lower limb Status: Acute Assessment and Plan: Left leg noted to be red and excoriated. She has previously been treated with Primaxin IV and PO Bactrim following hospitalization 08/2022 and clindamycin PO x10 days 10/2022 from the ED. Continue Zosyn IV Q6 hours. Elevate LLE. Wound care consulted and appreciate recommendations. continue mupirocin ointment BID and add eucerin cream daily. ABIs - severe PAD. L MAGDIEL 0.49, R MAGDIEL 0.53 Outpatient vascular evaluation warranted and discussed with patient and daughter. ASA 81 mg daily added. 12/02/22 slightly improved. Will transition to oral antibiotics if HIDA scan is negative for acute cholecystitis. 12/03/22 antibiotic day 5 of 10. 12/04/22 antibiotic day 05/1012/05/22 antibiotic day 06/09. Post op cholecystitis day 1. Cellulitis improving. Continue antibiotics. Per patient legs are improving. 12/06/22 antibiotic day 810. Patient's legs are continuing to improve 12/07/2022 antibiotic day 08/10. Patient's legs continue to improve. 12/08/2022 antibiotic day 09/09. 12/09/22 patient's antibiotic will be continued per surgery recommendations. (3) Cholelithiasis: Qualifiers: Cholelithiasis location: gallbladder Code(s): K80.20 - Calculus of gallbladder without cholecystitis without obstruction Status: Chronic Assessment and Plan: CT abdomen and pelvis shows cholelithiasis with intrahepatic and extrahepatic duct dilation, mild gallbladder and pancreatic duct dilation. No definitive mass or obstruction. Abdominal US - mild intrahepatic biliary dilation, cholelithiasis and dilated common bile duct. HIDA ordered on admission. MRCP with mildly dilated common bile duct, cholelithiasis, no choledocholithiasis 12/01/22 multiple episodes of bilious emesis today. Upper GI series without obstruction. Consider General Surgery consult due to CT scan results. Continue Zosyn IV as above. 12/03/22 Waiting for HIDA scan. Antibiotic day 5 of 7. Can be stopped if acute cholecystitis is ruled out. 12/04/22 patient having cholecystectomy today per general surgery note. 12/05/22 patient postop cholecystectomy day 1. Patient found to have mildly elevated LFTs on labs. This could be contributed patient's procedural complications noted in the surgery notes. Will continue to monitor the patient's labs. Patient will undergo ERCP with bile duct stent placement today. 12/06/22 Postop day 1 ERCP with bile duct stent placement. GI and General surgery both continuing to follow patient. Surgeon had discussed possible transfer today Unable to transfer patient and she was taken into surgery for laparoscopic bile duct repair. 12/07/22 Patient unable to be transferred and Dr. Chamberlain decided to take patient back into surgery ,due to peritoneal signs, for repair of the bile duct, placement of a T-tube and T-tube cholangiogram. Patient postop day 1. Patient's bile duct was found to be necrotic in this was taking care of in surgery. Patient had T-tube and 2 JOHN drains placed 12/08/2022 Patient postop bile duct repair day 2. 12/09/2022 Postop bile duct repair day 3 Discussed with patient that discharge is not possible until JOHN
--- NOTE | 2022-12-09 15:40 | ECG_ITS ---
Measurements Intervals Murphy Rate: 133 P: 64 VT: 144 QRS: 43 QRSD: 80 T: 59 QT: 270 QTc: 402 Interpretive Statements SINUS TACHYCARDIA ATRIAL PREMATURE COMPLEX DELAYED PRECORDIAL R/S TRANSITION LOW QRS VOLTAGE IN LIMB LEADS BASELINE ARTIFACT- I, II, III, AVR, AVL, AVF, V3 ABNORMAL ECG COMPARED TO ECG 12/02/2022 15:02:16 HEART RATE HAS INCREASED Electronically Signed On 12-09-2022 16:12:11 STEAM HAMMER OPERATOR by Michael Cannon D.O.
[2022-12-09] MEDS: CYCLOBENZAPRINE HCL 10 MG TABLET PO (16:36)
[2022-12-09] MEDS: KCL 40 MEQ/0.9% SOD CHL 1,000 ML 60 ML IV CONT (21:31)
[2022-12-09] MEDS: PROPRANOLOL HCL 10 MG TABLET PO (21:33)
[2022-12-10] VITALS (14 sets, daily range): BP systolic 123–129; BP diastolic 56–81; PULSE 110–123; RESP 18; TEMP 36.2–36.6; O2SAT 91–93
--- NOTE | 2022-12-10 00:42 | PCRCNOTE ---
WENT TO REASSESS PT PULSE OX PT REFUSED TO LET ME RECHECK SLAPPING MY HANDS/ARMS 2 TIMES AND TELLING ME TO FUCK OFF. I MADE A REPORT TO THE RN AND CHARGE PER REQUEST.. PT HAD A DESAT EARLIER IN THE NIGHT REASON FOR RE EVAL
--- NOTE | 2022-12-10 04:08 | PC.NURSE ---
Pt is currently resting in bed. Pt was agitated early in the shift. Pt is A&O3. Pt participated in plan of care. Pt educated on pain medication schedule. Will continue to monitor pt.
[2022-12-10] MEDS: cilostazoL 100 MG TABLET PO ×2 (06:35→17:08)
[2022-12-10 06:49] LABS: Basophils Percent Auto 0.3 % (0.2-1.2); Eosinophils Absolute Auto 0.5 K/mm3 (0-0.3); Eosinophils Percent Auto 3.6 % (0-4.4); Hematocrit 26.2 % (37.0-47.0); Hemoglobin 8.6 g/dL (12.0-15.0); Immature Granulocyte Absolute 0.06 K/mm3 (0.00-0.031); Immature Granulocyte Percent A 0.5 % (0-0.5); Lymphocytes Absolute Auto 2.11 K/mm3 (0.9-3.2); Mean Corpuscular HGB Conc 32.8 g/dl (32-36); Mean Corpuscular Hemoglobin 28.7 pg (26-34); Mean Corpuscular Volume 87.3 fl (80-100); Mean Platelet Volume 10.8 fl (7.4-10.4); Monocytes Absolute Auto 1.1 K/mm3 (0.1-0.6); Monocytes Percent Auto 8.9 % (2.6-8.5); Neutrophils Absolute Auto 8.6 K/mm3 (1.3-6.7); Neutrophils Percent Auto 69.7 % (45.5-73.1); Platelet Count Result 417 k/mm3 (150-375); Red Cell Distribution Width 15.7 % (11.5-14.5); White Blood Count 12.4 K/mm3 (4.5-10.0)
[2022-12-10 07:03] LABS: Alanine Aminotransferase 21 U/L (6-35); Albumin Level 2.5 g/dL (3.5-5.1); Alkaline Phosphatase 80 U/L (38-126); Anion Gap 1 mmol/L (8-16); Aspartate Amino Transferase 23 U/L (14-36); Bilirubin,Total 0.3 mg/dL (0.2-1.3); Blood Urea Nitrogen 5 mg/dL (7-17); Calcium 7.6 mg/dL (8.4-10.2); Carbon Dioxide 24 mmol/L (22-30); Chloride 103 mmol/L (98-107); Estimated CRCL calculation 67 ml/min; Estimated Glomerular Filt Rate > 60; Glucose 110 mg/dL (65-110); Potassium 4.2 mmol/L (3.4-5.0); Sodium 128 mmol/L (137-145)
[2022-12-10] MEDS: PROPRANOLOL HCL 10 MG TABLET PO ×2 (08:58→21:52)
[2022-12-10] MEDS: oxyCODONE HCL (*CRX) 10 MG TAB SR 12HR PO ×2 (08:58→21:52)
[2022-12-10] MEDS: oxyCODONE HCL (*CRX) 5 MG TAB IR 10 MG PO ×3 (08:58→17:38)
[2022-12-10] MEDS: amLODIPine BESYLATE 5 MG TABLET 10 MG PO (08:59)
[2022-12-10] MEDS: FERROUS SULFATE 324 MG TABLET PO (08:59)
[2022-12-10] MEDS: ATORVASTATIN 40 MG TABLET PO (08:59)
[2022-12-10] MEDS: ASPIRIN 81 MG ENTERIC TABLET PO (08:59)
[2022-12-10] MEDS: PANTOPRAZOLE 40 MG TABLET PO (08:59)
[2022-12-10] MEDS: ENOXAPARIN 40 MG/0.4 ML SYRINGE SUB-Q (08:59)
[2022-12-10] MEDS: SERTRALINE HCL 50 MG TABLET 100 MG PO (08:59)
[2022-12-10] MEDS: methiMAzole 5 MG TAB PO (09:00)
--- NOTE | 2022-12-10 09:57 | PM.PNGS ---
Progress Note: A&P Assessment and Plan (1) Common bile duct leak: Code(s): K83.8 - Other specified diseases of biliary tract Status: Acute Assessment and Plan: Will get T-tube cholangiogram today to better assess biliary leak. More output coming per JOHN drain then from T-tube. There was a question on the operative cholangiogram of a distal bile duct filling defect as well. We will evaluate with cholangiogram today. (2) Cholelithiasis and acute cholecystitis with obstruction: Code(s): K80.01 - Calculus of gallbladder with acute cholecystitis with obstruction Status: Acute Assessment and Plan: Initial laparoscopic cholecystectomy was 12/04/2022. ERCP was 12/05/2022. Patient returned to surgery on 12/06/2022 for bile duct repair and placement of T-tube. Pathology on gallbladder showed acute and chronic cholecystitis. (3) Opioid dependence with current use: Code(s): F11.20 - Opioid dependence, uncomplicated Status: Chronic Assessment and Plan: Much more comfortable doubt that she is getting her usual home dose of oxycodone. (4) Ischemic rest pain of lower extremity: Code(s): M79.606 - Pain in leg, unspecified; I99.8 - Other disorder of circulatory system Status: Chronic Assessment and Plan: Patient on pleat ill and no complaints of lower extremity pain. Does have severe vascular impairment particularly of the left lower extremity. (5) COPD (chronic obstructive pulmonary disease): Qualifiers: COPD type: emphysema Emphysema type: unspecified Qualified Code(s): J43.9 - Emphysema, unspecified Code(s): J44.9 - Chronic obstructive pulmonary disease, unspecified Status: Chronic Assessment and Plan: Stable at present Subjective Subjective Date/Time Seen: 12/10/22 09:57 Post Op day: 4 Patient reports: no new complaints, feels better, pain is less, tolerating a regular diet, no bowel movement and afebrile Interval history: feeling better now that she is getting oxycodone 5 times a day. Enjoying solid food as well. Less pain than before. No nausea or vomiting. Exam Const: General: comfortable, no acute distress, alert, awake and thin; No confusion Nutritional Appearance: thin Orientation/consciousness: patient oriented x3 and No confusion GI: Inspection: incision ( Dry and healing well), scaphoid and other ( T-Tube and right JOHN both draining bile. Sanguinous drainage per left JOHN) GI Palp: Yes Soft to palpation, Yes Tenderness to palpation present (GI), No Guarding due to palpation present (GI) and No Rebound tenderness present Auscultation: normal bowel sounds Other: JOHN drain on the right is draining more bile then the T-tube. Neuro: General: patient oriented x3, no focal motor deficits and No confusion Extrem: General: no calf tenderness and no edema Psych: Affect: normal affect Insight: Good insight present (Psych) Judgement: Good judgement present (Psych) Objective Data Vital Signs Vital Signs: Vital Signs - 24 hr 12/09/22 12:00 12/09/22 12:51 12/09/22 14:29 Temperature Pulse Rate 141 H 131 H Respiratory Rate Blood Pressure 133/68 Pulse Oximetry Oxygen Delivery Oxygen Flow Rate 12/09/22 16:00 12/09/22 21:07 12/09/22 21:14 Temperature Pulse Rate 130 H 146 H 141 H Respiratory Rate 24 H Blood Pressure 135/60 Pulse Oximetry 90 Oxygen Delivery Oxygen Flow Rate 12/09/22 21:33 12/09/22 21:31 12/09/22 20:00 Temperature Pulse Rate 141 H 142 H Respiratory Rate Blood Pressure Pulse Oximetry 90 Oxygen Delivery Nasal Cannula Oxygen Flow Rate 3 12/09/22 22:00 12/10/22 00:00 12/10/22 03:15 Temperature Pulse Rate 123 H 118 H Respiratory Rate 18 18 Blood Pressure Pulse Oximetry 94 92 Oxygen Delivery Nasal Cannula Nasal Cannula Nasal Cannula Oxygen Flow Rate 4 3 2.5 12/10/22 00:03 12/10/22 04:01 12/10/22 06:22 Temp
[2022-12-10] MEDS: HYDROCORTISONE 1% 30 GM CREAM 1 APPLIC TOPICAL ×2 (10:28→21:16)
--- NOTE | 2022-12-10 10:43 | PC.NURSE ---
to radiology for procedure per stretcher
--- NOTE | 2022-12-10 15:38 | PCOTNOTE ---
Attempted to see pt for Occupational therapy for treatment today. Due to increase pain from recent procedure, pt declined to participate in therapy treatment today. Pt states I will work tomorrow...I promise. Will continue per poc duration/frequency tomorrow.
--- NOTE | 2022-12-10 15:53 | PM.IMPN ---
Progress Note: A&P Assessment and Plan (1) Sepsis: Qualifiers: Sepsis acute organ dysfunction status: without acute organ dysfunction Sepsis type: sepsis due to unspecified organism Qualified Code(s): A41.9 - Sepsis, unspecified organism Code(s): A41.9 - Sepsis, unspecified organism Status: Acute Assessment and Plan: Patient presented to the ED and noted to have Temp 100.6F, HR 122, RR 28, spO2 78% RA, WBC 13, possible cellulitis or cholecystitis. Lactic acid 1.4 CRP 5.5 Continue Zosyn IV Q6 hours, started 11/29 continue IV hydration Trend CBC and monitor temperature curve PRN acetaminophen for fever. Resolved. (2) Cellulitis of leg, left: Code(s): L03.116 - Cellulitis of left lower limb Status: Acute Assessment and Plan: Left leg noted to be red and excoriated. She has previously been treated with Primaxin IV and PO Bactrim following hospitalization 08/2022 and clindamycin PO x10 days 10/2022 from the ED. Continue Zosyn IV Q6 hours. Elevate LLE. Wound care consulted and appreciate recommendations. continue mupirocin ointment BID and add eucerin cream daily. ABIs - severe PAD. L MAGDIEL 0.49, R MAGDIEL 0.53 Outpatient vascular evaluation warranted and discussed with patient and daughter. ASA 81 mg daily added. 12/02/22 slightly improved. Will transition to oral antibiotics if HIDA scan is negative for acute cholecystitis. 12/03/22 antibiotic day 5 of 10. 12/04/22 antibiotic day 05/1012/05/22 antibiotic day 06/09. Post op cholecystitis day 1. Cellulitis improving. Continue antibiotics. Per patient legs are improving. 12/06/22 antibiotic day 07/10. Patient's legs are continuing to improve 12/07/2022 antibiotic day 08/10. Patient's legs continue to improve. 12/08/2022 antibiotic day 09/09. 12/09/22 patient's antibiotic will be continued per surgery recommendations. 12/10/22 cellulitis much improved/resolved. Remainder skin color changes most likely due to PAD. (3) Cholelithiasis: Qualifiers: Cholelithiasis location: gallbladder Code(s): K80.20 - Calculus of gallbladder without cholecystitis without obstruction Status: Chronic Assessment and Plan: CT abdomen and pelvis shows cholelithiasis with intrahepatic and extrahepatic duct dilation, mild gallbladder and pancreatic duct dilation. No definitive mass or obstruction. Abdominal US - mild intrahepatic biliary dilation, cholelithiasis and dilated common bile duct. HIDA ordered on admission. MRCP with mildly dilated common bile duct, cholelithiasis, no choledocholithiasis 12/01/22 multiple episodes of bilious emesis today. Upper GI series without obstruction. Consider General Surgery consult due to CT scan results. Continue Zosyn IV as above. 12/03/22 Waiting for HIDA scan. Antibiotic day 5 of 7. Can be stopped if acute cholecystitis is ruled out. 12/04/22 patient having cholecystectomy today per general surgery note. 12/05/22 patient postop cholecystectomy day 1. Patient found to have mildly elevated LFTs on labs. This could be contributed patient's procedural complications noted in the surgery notes. Will continue to monitor the patient's labs. Patient will undergo ERCP with bile duct stent placement today. 12/06/22 Postop day 1 ERCP with bile duct stent placement. GI and General surgery both continuing to follow patient. Surgeon had discussed possible transfer today Unable to transfer patient and she was taken into surgery for laparoscopic bile duct repair. 12/07/22 Patient unable to be transferred and Dr. Chamberlain decided to take patient back into surgery ,due to peritoneal signs, for repair of the bile duct, placement of a T-tube and T-tube cholangiogram. Patient postop day 1. Patient's bile duct was found to be necrotic in this was taking care of in surgery. Patient had T-tube and 2 JOHN drains placed 12/08/2022 Patient postop bile duct repair day 2. 12/09/19
[2022-12-10] MEDS: CYCLOBENZAPRINE HCL 10 MG TABLET PO (17:08)
[2022-12-11] VITALS (18 sets, daily range): BP systolic 82–113; BP diastolic 57–66; PULSE 71–168; RESP 16–22; TEMP 36.1–37.1; O2SAT 90–98
--- NOTE | 2022-12-11 05:17 | PC.NURSE ---
Pt has been resting most of the night. Pt was able to ambulate better today than yesterday. Pt participated and contributed in plan of care. Pt express no needs at this time and has no complaints of pain. Will continue to monitor pt.
[2022-12-11] MEDS: cilostazoL 100 MG TABLET PO (06:18)
[2022-12-11 06:30] LABS: Hematocrit 28.6 % (37.0-47.0); Hemoglobin 9.2 g/dL (12.0-15.0); Mean Corpuscular HGB Conc 32.2 g/dl (32-36); Mean Corpuscular Hemoglobin 28.1 pg (26-34); Mean Corpuscular Volume 87.5 fl (80-100); Mean Platelet Volume 10.7 fl (7.4-10.4); Platelet Count Result 459 k/mm3 (150-375); Red Blood Count 3.27 M/mm3 (4.2-5.4); Red Cell Distribution Width 15.5 % (11.5-14.5); White Blood Count 11.3 K/mm3 (4.5-10.0)
[2022-12-11 06:40] LABS: Anion Gap 3 mmol/L (8-16); Blood Urea Nitrogen 8 mg/dL (7-17); Calcium 7.6 mg/dL (8.4-10.2); Carbon Dioxide 24 mmol/L (22-30); Chloride 104 mmol/L (98-107); Estimated CRCL calculation 51 ml/min; Estimated Glomerular Filt Rate > 60; Glucose 100 mg/dL (65-110); Potassium 3.6 mmol/L (3.4-5.0); Sodium 131 mmol/L (137-145)
[2022-12-11] MEDS: oxyCODONE HCL (*CRX) 10 MG TAB SR 12HR PO ×2 (08:15→20:08)
[2022-12-11] MEDS: oxyCODONE HCL (*CRX) 5 MG TAB IR 10 MG PO ×4 (08:15→22:15)
[2022-12-11] MEDS: methiMAzole 5 MG TAB PO (08:16)
[2022-12-11] MEDS: PROPRANOLOL HCL 10 MG TABLET PO (08:16)
[2022-12-11] MEDS: FERROUS SULFATE 324 MG TABLET PO (08:16)
[2022-12-11] MEDS: HYDROCORTISONE 1% 30 GM CREAM 1 APPLIC TOPICAL ×2 (08:17→20:09)
[2022-12-11] MEDS: ATORVASTATIN 40 MG TABLET PO (08:17)
[2022-12-11] MEDS: PANTOPRAZOLE 40 MG TABLET PO (08:17)
[2022-12-11] MEDS: ENOXAPARIN 40 MG/0.4 ML SYRINGE SUB-Q (08:17)
[2022-12-11] MEDS: ASPIRIN 81 MG ENTERIC TABLET PO (08:17)
[2022-12-11] MEDS: SERTRALINE HCL 50 MG TABLET 100 MG PO (08:17)
[2022-12-11] MEDS: METOPROLOL TARTRATE INJ 5 MG/5 ML VIAL IV PUSH (11:51)
[2022-12-11] MEDS: CALCIUM CARBONATE (TUMS) 500 MG (200 MG ELEMENTAL) PO ×2 (11:58→15:36)
--- NOTE | 2022-12-11 13:56 | P.PNIM_ITS ---
Progress Note: A&P Assessment and Plan (1) Sepsis: Qualifiers: Sepsis acute organ dysfunction status: without acute organ dysfunction Sepsis type: sepsis due to unspecified organism Qualified Code(s): A41.9 - S epsis, unspecified organism Code(s): A41.9 - Sepsis, unspecified organism Status: Acute Assessment and Plan: Patient presented to the ED and noted to have Temp 100.6F, HR 122, RR 28, spO2 78% RA, WBC 13, possible cellulitis or cholecystitis. * Lactic acid 1.4 * CRP 5.5 * Continue Zosyn IV Q6 hours, started 11/29 * continue IV hydration * Trend CBC and monitor temperature curve * PRN acetaminophen for fever. * Resolved. (2) Cellulitis of leg, left: Code(s): L03.116 - Cellulitis of left lower limb Status: Acute Assessment and Plan: Left leg noted to be red and excoriated. She has previously been treated with Primaxin IV and PO Bactrim following hospitalization 08/2022 and clindamycin PO x10 days 10/2022 from the ED. * Continue Zosyn IV Q6 hours. * Elevate LLE. * Wound care consulted and appreciate recommendations. * continue mupirocin ointment BID and add eucerin cream daily. * ABIs - severe PAD. L MAGDIEL 0.49, R MAGDIEL 0.53 Outpatient vascular evaluation warranted and discussed with patient and daughter. ASA 81 mg daily added. * 12/02/22 slightly improved. Will transition to oral antibiotics if HIDA scan is negative for acute cholecystitis. * 12/03/22 antibiotic day . * 12/04/22 antibiotic day 05/10 * 12/05/22 antibiotic day 06/09. Post op cholecystitis day 1. Cellulitis improving. Continue antibiotics. Per patient legs are improving. * 12/06/22 antibiotic day 07/10. Patient's legs are continuing to improve * 12/07/2022 antibiotic day 08/10. Patient's legs continue to improve. * 12/08/2022 antibiotic day 09/09. * 12/09/22 patient's antibiotic will be continued per surgery recommendations. * 12/10/22 cellulitis much improved/resolved. Remainder skin color changes most likely due to PAD. * Unchanged. (3) Cholelithiasis: Qualifiers: Cholelithiasis location: gallbladder Code(s): K80.20 - Calculus of gallbladder without cholecystitis without obstruction Status: Chronic Assessment and Plan: CT abdomen and pelvis shows cholelithiasis with intrahepatic and extrahepatic duct dilation, mild gallbladder and pancreatic duct dilation. No definitive mass or obstruction. * Abdominal US - mild intrahepatic biliary dilation, cholelithiasis and dilated common bile duct. * HIDA ordered on admission. * MRCP with mildly dilated common bile duct, cholelithiasis, no choledocholithiasis 12/01/22 * multiple episodes of bilious emesis today. Upper GI series without obstruction. * Consider General Surgery consult due to CT scan results. * Continue Zosyn IV as above. 12/03/22 * Waiting for HIDA scan. Antibiotic day 5 of 7. Can be stopped if acute cholecystitis is ruled out. 12/04/22 * patient having cholecystectomy today per general surgery note. 12/05/22 * patient postop cholecystectomy day 1. * Patient found to have mildly elevated LFTs on labs. * This could be contributed patient's procedural complications noted in the surgery notes. * Will continue to monitor the patient's labs. * Patient will undergo ERCP with bile duct stent placement today. 12/06/22 * Postop day 1 ERCP with bile duct stent placement. * GI and General surgery both continuing to follow patient. * Surgeon had discussed possible transfer today * Unable to transfer patient and she was taken into surgery for laparoscopic bile duct repair.
[2022-12-11] MEDS: PREGABALIN (*CRX) 50 MG CAPSULE 100 MG PO (14:03)
[2022-12-11] MEDS: MORPHINE SULFATE (*CRX) 2 MG/ML INJ IV PUSH ×2 (14:04→18:49)
--- NOTE | 2022-12-11 14:28 | ECG_ITS ---
Measurements Intervals [place] Rate: 140 P: [place]: 0 QRS: 56 QRSD: 84 T: 53 QT: 282 QTc: 432 Interpretive Statements ATRIAL FIBRILLATION WITH RAPID VENTRICULAR RESPONSE BASELINE ARTIFACT- I, III, AVR, AVL ABNORMAL ECG COMPARED TO ECG 12/09/2022 15:56:39 ATRIAL FIBRILLATION NOW PRESENT Electronically Signed On 12-11-2022 14:52:28 [employer]OP[employer]IC [employer]ST SPECIALIST by Michael Cannon D.O.
[2022-12-11] MEDS: POTASSIUM CHLORIDE 20 MEQ TABLET 60 MEQ PO (15:00)
[2022-12-11] MEDS: dilTIAZem HCl INJ 25 MG/5 ML VIAL 15 MG IV PUSH (15:00)
--- NOTE | 2022-12-11 15:04 | PM.PNGS ---
Progress Note: A&P Assessment and Plan (1) Common bile duct leak: Code(s): K83.8 - Other specified diseases of biliary tract Status: Acute Assessment and Plan: T-tube cholangiogram yesterday does not show a bile leak. There was little contrast that went retrograde into the common hepatic duct or intrahepatic ducts. Right JOHN drain and T-tube draining bile with more output coming from the right JOHN drain. Continue to monitor drain outputs. Continue IV Zosyn. (2) Cholelithiasis and acute cholecystitis with obstruction: Code(s): K80.01 - Calculus of gallbladder with acute cholecystitis with obstruction Status: Acute Assessment and Plan: Initial laparoscopic cholecystectomy was 12/04/2022. ERCP was 12/05/2022. Patient returned to surgery on 12/06/2022 for bile duct repair and placement of T-tube. Pathology on gallbladder showed acute and chronic cholecystitis. (3) Atrial fibrillation with RVR: Code(s): I48.91 - Unspecified atrial fibrillation Status: Acute Assessment and Plan: In review of her chart, this afternoon another EKG was done and showed afib with RVR, heart rate in the 140s. (4) Opioid dependence with current use: Code(s): F11.20 - Opioid dependence, uncomplicated Status: Chronic (5) Ischemic rest pain of lower extremity: Code(s): M79.606 - Pain in leg, unspecified; I99.8 - Other disorder of circulatory system Status: Chronic Assessment and Plan: Patient on Pletal and no complaints of lower extremity pain. Does have severe vascular impairment particularly of the left lower extremity. (6) COPD (chronic obstructive pulmonary disease): Qualifiers: COPD type: emphysema Emphysema type: unspecified Qualified Code(s): J43.9 - Emphysema, unspecified Code(s): J44.9 - Chronic obstructive pulmonary disease, unspecified Status: Chronic Plan I have discussed the patient's case and plan of care with Dr. Chamberlain. Subjective Subjective Date/Time Seen: 12/11/22 10:04 Patient reports: feels better, tolerating a regular diet, flatus, no bowel movement and afebrile Interval history: 12/04/22 - Laparoscopic cholecystectomy, repair bile duct injury 12/05/22 - ERCP with biliary stent 12/06/22 - Repair bile duct, placement T-tube, T-tube cholangiogram This is a 67 yo F who presented to the ER on 11/29/22 for altered mental status. Chart reviewed. Workup showed acute cholecystitis on HIDA scan. She has undergone the above surgeries. She is POD#5 from her most recent surgery. She reports sleeping well last night and no acute events overnight. She complains of RUQ abdominal pain that has been improving over the past few days. 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 No nausea or vomiting. She has 2 JOHN drains and a T-Tube in place. All drain output reviewed. Review of Systems Constitutional: Constitutional: Reports no additional constitutional complaints, Denies fatigue, Denies fever(s), Denies headache(s) and Denies poor appetite (eats better in the morning per patient) Cardiovascular: Cardiovascular: Reports no additional cardiovascular complaints and Denies chest pain Respiratory: Respiratory: Reports no additional respiratory complaints and Denies dyspnea Gastrointestinal: Gastrointestinal: Reports as per HPI and Reports no additional gastrointestinal complaints Exam Const: General: comfortable and no acute distress Orientation/consciousness: patient oriented x3 GI: Inspection: non-distended, incision (dry and ciaran intact, no erythema), scaphoid and other (T-Tube and R JOHN drain with bilious-appearing drainage, L JOHN scant serosang.) GI Palp: Yes Soft to palpation, Yes Tenderness to palpation present (GI), No Guarding due to palpation present (GI) and No Rebound tenderness present Auscultation: normal bowel sounds Neuro: General: moves all extremities and no
[2022-12-11 15:44] LABS: Magnesium 1.5 mg/dL (1.6-2.3)
--- NOTE | 2022-12-11 17:01 | PC.NURSE ---
patient moving to IMU for cardizem drip. afib rvr with rates as high as 170. report given to Ruth. patient called to tell him of room change. patient moved to room 210. belongings and meds with patient.
[2022-12-11] MEDS: MAGNESIUM SULF 2 GM/WATER 50ML 2 GM/50 ML BAG IVPB (17:03)
[2022-12-11] MEDS: dilTIAZem 100 MG/100 ML 100 MG/100 ML BAG IV CONT (17:03)
[2022-12-12] VITALS (12 sets, daily range): BP systolic 101–142; BP diastolic 56–80; PULSE 101–133; RESP 20–26; TEMP 36.2–37.3; O2SAT 90–98
--- NOTE | 2022-12-12 03:23 | ECG_ITS ---
Measurements Intervals [place] Rate: 106 P: 85 RI: 176 QRS: 77 QRSD: 87 T: 66 QT: 327 QTc: 436 Interpretive Statements SINUS TACHYCARDIA BORDERLINE T WAVE ABNORMALITY- INFERIOR LEADS BASELINE ARTIFACT- I, II, III, AVR, AVL, AVF, V1-V2 ABNORMAL ECG COMPARED TO ECG 12/11/2022 14:44:21 SINUS TACHYCARDIA NOW PRESENT Electronically Signed On 12-12-2022 12:50:07 [employer]LL SCALE WORKER by Michael Cannon D.O.
[2022-12-12 05:18] LABS: Basophils Absolute Auto 0.1 K/mm3 (0.0-0.1); Basophils Percent Auto 0.5 % (0.2-1.2); Eosinophils Absolute Auto 0.6 K/mm3 (0-0.3); Eosinophils Percent Auto 4.7 % (0-4.4); Hematocrit 28.2 % (37.0-47.0); Hemoglobin 9.3 g/dL (12.0-15.0); Immature Granulocyte Absolute 0.04 K/mm3 (0.00-0.031); Immature Granulocyte Percent A 0.3 % (0-0.5); Lymphocytes Absolute Auto 1.16 K/mm3 (0.9-3.2); Lymphocytes Percent Auto 9.7 % (18.3-44.2); Mean Corpuscular Hemoglobin 28.7 pg (26-34); Mean Platelet Volume 10.2 fl (7.4-10.4); Monocytes Percent Auto 8.6 % (2.6-8.5); Neutrophils Absolute Auto 9.2 K/mm3 (1.3-6.7); Neutrophils Percent Auto 76.2 % (45.5-73.1); Platelet Count Result 455 k/mm3 (150-375); Red Blood Count 3.24 M/mm3 (4.2-5.4); Red Cell Distribution Width 15.2 % (11.5-14.5)
[2022-12-12 05:23] LABS: Prothrombin Time 22.1 Seconds (11.1-14.7)
[2022-12-12 05:32] LABS: Alanine Aminotransferase 20 U/L (6-35); Albumin Level 2.7 g/dL (3.5-5.1); Alkaline Phosphatase 94 U/L (38-126); Anion Gap 3 mmol/L (8-16); Aspartate Amino Transferase 30 U/L (14-36); Bilirubin,Total 0.7 mg/dL (0.2-1.3); Blood Urea Nitrogen 10 mg/dL (7-17); Calcium 7.5 mg/dL (8.4-10.2); Carbon Dioxide 25 mmol/L (22-30); Chloride 103 mmol/L (98-107); Estimated CRCL calculation 46 ml/min; Estimated Glomerular Filt Rate > 60; Glucose 107 mg/dL (65-110); Magnesium 2.1 mg/dL (1.6-2.3); Potassium 3.6 mmol/L (3.4-5.0); Sodium 131 mmol/L (137-145)
--- NOTE | 2022-12-12 07:46 | P.PNIM_ITS ---
Progress Note: A&P Assessment and Plan (1) Sepsis: Qualifiers: Sepsis acute organ dysfunction status: without acute organ dysfunction Sepsis type: sepsis due to unspecified organism Qualified Code(s): A41.9 - S epsis, unspecified organism Code(s): A41.9 - Sepsis, unspecified organism Status: Resolved Assessment and Plan: Patient presented to the ED and noted to have Temp 100.6F, HR 122, RR 28, spO2 78% RA, WBC 13, possible cellulitis or cholecystitis. * Lactic acid 1.4 * CRP 5.5 * Continue Zosyn IV Q6 hours, started? 11/29 * continue IV hydration * Trend CBC and monitor temperature curve * PRN acetaminophen for fever. * Resolved. (2) Cellulitis of leg, left: Code(s): L03.116 - Cellulitis of left lower limb Status: Acute Assessment and Plan: Left leg noted to be red and excoriated. She has previously been treated with Primaxin IV and PO Bactrim following hospitalization 08/2022 and clindamycin PO x10 days 10/2022 from the ED.? * Continue Zosyn IV Q6 hours. * Elevate LLE. * Wound care consulted and appreciate recommendations. * continue mupirocin ointment BID and add eucerin cream daily. * ABIs - severe PAD. L MAGDIEL 0.49, R MAGDIEL 0.53 Outpatient vascular evaluation warranted and discussed with patient and daughter. ASA 81 mg daily added. * 12/02/22 slightly improved. Will transition to oral antibiotics if HIDA scan is negative for acute cholecystitis. * 12/03/22 antibiotic day . * 12/04/22 antibiotic day 05/10 * 12/05/22 antibiotic day 06/09. Post op cholecystitis day 1. Cellulitis improving. Continue antibiotics.? Per patient legs are improving. * 12/06/22 antibiotic day 07/10.? Patient's legs are continuing to improve * 12/07/2022 antibiotic day 08/10.? Patient's legs continue to improve. * 12/08/2022 antibiotic day 09/09. * 12/09/22 patient's antibiotic will be continued per surgery recommendations. * 12/10/22 cellulitis much improved/resolved.? Remainder skin color changes most likely due to PAD. Stable (3) Cholelithiasis: Qualifiers: Cholelithiasis location: gallbladder Code(s): K80.20 - Calculus of gallbladder without cholecystitis without obstruction Status: Chronic Assessment and Plan: CT abdomen and pelvis shows cholelithiasis with intrahepatic and extrahepatic du ct dilation, mild gallbladder and pancreatic duct dilation. No definitive mass or obstruction. * Abdominal US - mild intrahepatic biliary dilation, cholelithiasis and dilated common bile duct. * HIDA suggests acute cholecystitis * MRCP with mildly dilated common bile duct, cholelithiasis, no choledocholithiasis * 12/01/22?multiple episodes of bilious emesis today. Upper GI series without obstruction. * General surgery consulted for assistance with management.? * started on Zosyn IV 11/29/22 * Underwent cholecystectomy 12/04/22? * 12/05/22?mildly elevated LFTs on labs. ERCP with bile duct stent placement today. * 12/06/22?Postop day 1 ERCP with bile duct stent placement.? * GI and General surgery both continuing to follow patient.? * Surgeon had discussed possible transfer on 12/06/22 however,?Unable to transfer patient and she was taken into surgery for laparoscopic bile duct repair. * 12/07/22?placement of a T-tube and T-tube cholangiogram.?Patient's bile duct was found to be necrosis and treated in surgery.?2 JOHN drains placed * 12/11/22 POD 7 cholecystectomy and POD 5 following bile duct repair. management per general surgery. Day 13 of Zosyn and continued per general surgery. She c/o increased abdominal pain and reports taking Oxycontin 10 mg PO BID plus oxycodone IR 10 mg in the morning and stevie
--- NOTE | 2022-12-12 07:46 | PM.IMPN ---
Progress Note: A&P Assessment and Plan (1) Sepsis: Qualifiers: Sepsis acute organ dysfunction status: without acute organ dysfunction Sepsis type: sepsis due to unspecified organism Qualified Code(s): A41.9 - Sepsis, unspecified organism Code(s): A41.9 - Sepsis, unspecified organism Status: Resolved Assessment and Plan: Patient presented to the ED and noted to have Temp 100.6F, HR 122, RR 28, spO2 78% RA, WBC 13, possible cellulitis or cholecystitis. Lactic acid 1.4 CRP 5.5 Continue Zosyn IV Q6 hours, started? 11/29 continue IV hydration Trend CBC and monitor temperature curve PRN acetaminophen for fever. Resolved. (2) Cellulitis of leg, left: Code(s): L03.116 - Cellulitis of left lower limb Status: Acute Assessment and Plan: Left leg noted to be red and excoriated. She has previously been treated with Primaxin IV and PO Bactrim following hospitalization 08/2022 and clindamycin PO x10 days 10/2022 from the ED.? Continue Zosyn IV Q6 hours. Elevate LLE. Wound care consulted and appreciate recommendations. continue mupirocin ointment BID and add eucerin cream daily. ABIs - severe PAD. L MAGDIEL 0.49, R MAGDIEL 0.53 Outpatient vascular evaluation warranted and discussed with patient and daughter. ASA 81 mg daily added. 12/02/22 slightly improved. Will transition to oral antibiotics if HIDA scan is negative for acute cholecystitis. 12/03/22 antibiotic day 5 of 10. 12/04/22 antibiotic day 05/1012/05/22 antibiotic day 06/09. Post op cholecystitis day 1. Cellulitis improving. Continue antibiotics.? Per patient legs are improving. 12/06/22 antibiotic day 07/10.? Patient's legs are continuing to improve 12/07/2022 antibiotic day 08/10.? Patient's legs continue to improve. 12/08/2022 antibiotic day 09/09. 12/09/22 patient's antibiotic will be continued per surgery recommendations. 12/10/22 cellulitis much improved/resolved.? Remainder skin color changes most likely due to PAD. Stable (3) Cholelithiasis: Qualifiers: Cholelithiasis location: gallbladder Code(s): K80.20 - Calculus of gallbladder without cholecystitis without obstruction Status: Chronic Assessment and Plan: CT abdomen and pelvis shows cholelithiasis with intrahepatic and extrahepatic duct dilation, mild gallbladder and pancreatic duct dilation. No definitive mass or obstruction. Abdominal US - mild intrahepatic biliary dilation, cholelithiasis and dilated common bile duct. HIDA suggests acute cholecystitis MRCP with mildly dilated common bile duct, cholelithiasis, no choledocholithiasis 12/01/22?multiple episodes of bilious emesis today. Upper GI series without obstruction. General surgery consulted for assistance with management.? started on Zosyn IV 11/29/22 Underwent cholecystectomy 12/04/22? 12/05/22?mildly elevated LFTs on labs. ERCP with bile duct stent placement today. 12/06/22?Postop day 1 ERCP with bile duct stent placement.? GI and General surgery both continuing to follow patient.? Surgeon had discussed possible transfer on 12/06/22 however,?Unable to transfer patient and she was taken into surgery for laparoscopic bile duct repair. 12/07/22?placement of a T-tube and T-tube cholangiogram.?Patient's bile duct was found to be necrosis and treated in surgery.?2 JOHN drains placed 12/11/22 POD 7 cholecystectomy and POD 5 following bile duct repair. management per general surgery. Day 13 of Zosyn and continued per general surgery. She c/o increased abdominal pain and reports taking Oxycontin 10 mg PO BID plus oxycodone IR 10 mg in the morning and evening with oxycontin dose, as well as twice during the day. changed oral medications to reflect this. IV morphine for breakthrough pain.? 12/12/22 JOHN drain left abdomen to be discontinued per surgery. c/o persistent abd pain. stool softeners and miralax added for possible constipation. Unknown last BM. Repeat CT abd/pelvis to be obtained.? (4) COPD (chronic obstructive p
[2022-12-12] MEDS: ENOXAPARIN 40 MG/0.4 ML SYRINGE SUB-Q (09:39)
[2022-12-12] MEDS: SERTRALINE HCL 50 MG TABLET 100 MG PO (09:40)
[2022-12-12] MEDS: ASPIRIN 81 MG ENTERIC TABLET PO (09:40)
[2022-12-12] MEDS: ATORVASTATIN 40 MG TABLET PO (09:40)
[2022-12-12] MEDS: PREGABALIN (*CRX) 50 MG CAPSULE 100 MG PO (09:40)
[2022-12-12] MEDS: FERROUS SULFATE 324 MG TABLET PO (09:41)
[2022-12-12] MEDS: PANTOPRAZOLE 40 MG TABLET PO (09:41)
[2022-12-12] MEDS: oxyCODONE HCL (*CRX) 10 MG TAB SR 12HR PO ×2 (09:41→21:19)
[2022-12-12] MEDS: oxyCODONE HCL (*CRX) 5 MG TAB IR 10 MG PO ×3 (09:42→23:57)
[2022-12-12] MEDS: HYDROCORTISONE 1% 30 GM CREAM 1 APPLIC TOPICAL ×2 (09:43→21:31)
[2022-12-12] MEDS: dilTIAZem 100 MG/100 ML 100 MG/100 ML BAG IV CONT (10:01)
[2022-12-12] MEDS: POTASSIUM CHLORIDE INJ 40 MEQ in SODIUM CHLORIDE 0.9% IV 500 ML 130 MEQ IVPB (10:17)
--- NOTE | 2022-12-12 11:09 | ECG_ITS ---
Measurements Intervals H[place] Rate: 119 P: 88 AR: 152 QRS: 71 QRSD: 90 T: 46 QT: 291 QTc: 410 Interpretive Statements SINUS TACHYCARDIA ABNORMAL ECG COMPARED TO ECG 12/12/2022 05:05:12 NO SIGNIFICANT CHANGES Electronically Signed On 12-12-2022 15:43:09 [employer] by Michael Cannon D.O.
--- NOTE | 2022-12-12 11:43 | PM.PNGS ---
Progress Note: A&P Assessment and Plan (1) Common bile duct leak: Code(s): K83.8 - Other specified diseases of biliary tract Status: Acute Assessment and Plan: Total bile drainage about 500 cc per day. This is mostly per the JOHN drain. No site of leakage noted on T-tube cholangiogram done on Friday. Probably can stop IV antibiotics tomorrow. I informed patient that she will be going home with both the T-tube and the JOHN drain. I will start having the nurses instruct the patient on emptying and recording the amounts from each of these drains show she can do this at home. Probably could go home this weekend from my perspective but with hyperthyroidism and atrial fibrillation, it may take longer. (2) Cholelithiasis and acute cholecystitis with obstruction: Code(s): K80.01 - Calculus of gallbladder with acute cholecystitis with obstruction Status: Acute Assessment and Plan: Lap choly 12/04/2022 with bile duct injury. Bile duct surgery with T-tube placement 12/06/2022 (3) Atrial fibrillation with RVR: Code(s): I48.91 - Unspecified atrial fibrillation Status: Acute Assessment and Plan: currently in sinus tach with heart rate 110. Cardiology to see the patient. (4) Hyperthyroidism: Code(s): E05.90 - Thyrotoxicosis, unspecified without thyrotoxic crisis or storm Status: Acute Assessment and Plan: Diagnosed this admission. Patient reports that about 3 years ago she lost 20-30 lb for no apparent reason. Being treated per hospitalist. (5) Ischemic rest pain of lower extremity: Code(s): M79.606 - Pain in leg, unspecified; I99.8 - Other disorder of circulatory system Status: Chronic Assessment and Plan: On Pletal. (6) Opioid dependence with current use: Code(s): F11.20 - Opioid dependence, uncomplicated Status: Chronic Assessment and Plan: Getting at least as much oral narcotic in the hospital as she gets at home. Patient's pain seems to be from suture holding the drains in place. Trying to reinforce that pain medication will really not helped much with this although patient still requesting it regularly. (7) COPD (chronic obstructive pulmonary disease): Qualifiers: COPD type: emphysema Emphysema type: unspecified Qualified Code(s): J43.9 - Emphysema, unspecified Code(s): J44.9 - Chronic obstructive pulmonary disease, unspecified Status: Chronic Assessment and Plan: Severe, on oxygen. Management per hospitalist. Subjective Subjective Date/Time Seen: 12/12/22 11:43 Post Op day: #6 (Bile duct repair, Ttube placement) Patient reports: no new complaints, still having pain, tolerating a regular diet and afebrile Interval history: Patient noted to be in atrial fibrillation with rapid ventricular rate yesterday. She was transferred to IMU. She has since converted but is still somewhat tachycardic with heart rate of around 110. She has also been found to have hyperthyroidism which is being treated as well. Patient complains of not getting her pain medication as quickly as she would like. She is getting a significant amount of oxycodone and has a p.r.n. dose of either 2 or 4 mg of morphine IV. She regularly takes high doses of oxycodone daily for right shoulder pain prior to this admission. Review of Systems Review of Systems: All systems reviewed & are unremarkable except as noted in HPI and below ( HPI) Exam Const: General: comfortable and no acute distress; No confusion Orientation/consciousness: patient oriented x3 and No confusion Cardio: Rate: tachycardic Rhythm: regular rhythm GI: Inspection: incision ( dry and healing well, nothing per left JOHN, bile per right JOHN and T-tube) and scaphoid GI Palp: Yes Soft to palpation, Yes Tenderness to palpation present (GI), No Guarding due to palpation present (GI) and No Rebound tenderness present Auscultation: normal bowel
--- NOTE | 2022-12-12 11:44 | PM.CNCAR ---
Assessment and Plan Assessment and plan (1) Atrial fibrillation with RVR: Code(s): I48.91 - Unspecified atrial fibrillation Status: Acute Plan Has a history of hyperthyroidism. TSH yesterday was WNL. TTE from 08/2022 shows normal LVEF, moderate enlargement of left atrium, PFO, mild TR. In sinus rhythm this morning. Will stop Dilt drip, and start oral Metoprolol. Can increase dose of Metoprolol as needed. Her [id number] score is 3 for age, hypertension, and gender. Anticoagulation is recommended, preferably with NOAC. Recommend to start NOAC for stroke prophylaxis when stable from a surgical standpoint. Patient to follow-up with us in clinic after hospital discharge. Cardiology will sign off at this time. History of Present Illness History of Present Illness Consult date/time: 12/12/22 11:44 Requesting physician: Anna De La Fuente APRN Consult reason: atrial fibrillation Reason For Visit: Cholecystitis Narrative: We are being consulted for atrial fibrillation with RVR. This is a 67-year-old female who presented to the ER with altered mental status. Found with acute cholecystitis. Underwent laparoscopic cholecystectomy with repair of bile duct injury on 12/04. Underwent ERCP with biliary stent on 12/05. Underwent repair of bile duct, placement of T-tube, T-tube cholangiogram on 12/06. Went into AFIB yesterday, started on Dilt drip. Converted back to sinus rhythm. Patient denies any prior history of atrial fibrillation. No chest pain, palpitations today. Review of Systems Review of Systems: 12-point ROS obtained. Negative, unless stated in HPI. [facility], [facility] Past Medical History Medical History Chronic back pain COPD (chronic obstructive pulmonary disease) Depression Foot drop Hypertension Iron deficiency anemia Neuropathy Overactive bladder Surgical History Surgical History H/O tubal ligation tubal repair after a tubal H/O umbilical hernia repair History of appendectomy History of foot surgery History of spinal fusion Family History Family History Other Heart disease Hypertension Social History Social History Social History: the patient has 2 adopted children and no biological children. Patient smokes 3/4 of a pack a cigarettes daily and has no intention on smoking cessation. The patient does have a nightly beer. The patient is and lives with her . Her is the [employer] rehabilitation liaison for healthcare. Code status full code Smoking packs per day: 0.5 Smoking cigarettes per day: 10.0 Years smoked: 50 Smoking pack-years: 25.00 Smoking status: Current every day smoker Tobacco type: cigarettes Second hand tobacco smoke exposure: No Alcohol intake: current Drinks per week: 14 Substance use: never Substance use type: does not use Lack of Transportation: No Lack of Food: Never True Current Housing: I Have Housing Concerned About Future Housing: No Difficulty Paying Gas/Electric Bills: No Difficulty Paying for Meds: No Currently Unemployed: No Education: Associate Degree Difficulty w/ Childcare or Family Care: No Spiritual care concerns: No Meds Home Medications and Allergies Home Medications Medication Instructions Recorded Confirmed Type cyclobenzaprine 10 mg tablet 10 mg PO BID PRN Muscle Spasm 08/27/22 11/29/22 History oxybutynin chloride 5 mg 5 mg PO DAILY 08/27/22 11/29/22 History tablet,extended release 24 hr oxycodone 10 mg tablet 10 mg PO TID 08/27/22 11/29/22 History pregabalin 100 mg capsule 100 mg PO DAILY 08/27/22 11/29/22 History sertraline 100 mg tablet 100 mg PO DAILY 08/27/22 11/29/22 History amlodipine 10 mg tablet 10 mg PO DAILY 09/13/22 11/29/22 History ferrous sulfate 325 mg (65 mg 32
[2022-12-12] MEDS: SENNA/DOCUSATE SODIUM TABLET 1 TAB PO ×2 (12:23→17:05)
[2022-12-12] MEDS: polyethylene glycoL 3350 17 GM POWD.PACK PO (12:24)
[2022-12-12] MEDS: SODIUM CHLORIDE 0.9% IV 500 ML IV CONT (12:24)
[2022-12-12] MEDS: MORPHINE SULFATE (*CRX) 2 MG/ML INJ IV PUSH (12:25)
[2022-12-12] MEDS: METOPROLOL TARTRATE 50 MG TAB PO ×2 (12:38→21:01)
[2022-12-12] MEDS: MORPHINE SULFATE (*CRX) 4 MG/ML INJ IV PUSH ×3 (14:23→21:04)
--- NOTE | 2022-12-12 15:41 | PC.NURSE ---
JOHN drain to left discontinued, drain intact. Patient tolerated well. Will continue to monitor closely.
--- NOTE | 2022-12-12 15:43 | PC.NURSE ---
Patient educated on how empty drain, and maintain an accurate 24 hour record.
--- NOTE | 2022-12-12 16:26 | WPDPN ---
Progress Note: A&P Assessment and Plan (1) Abdominal pain of unknown cause: Code(s): R10.9 - Unspecified abdominal pain Status: Acute Assessment and Plan: Patient difficult to assess as she does have significant dependence our narcotic analgesics in very sensitive to pain. However, she did notice a new onset of abdominal pain this afternoon. This predates removal of the JOHN drain but since that has been removed, she is had increasing abdominal pain and unusual amount of bleeding from the JOHN drain site. I am concerned she has had intra-abdominal bleeding from unknown source and may have coagulopathy. Will get coags and CBC as well as a stat CT scan of the abdomen. (2) Bleeding from wound: Code(s): T14.8XXA - Other injury of unspecified body region, initial encounter Status: Acute Assessment and Plan: I pinched the wound together which was uncomfortable for her. There was still some oozing so I placed a 3-0 nylon suture in the drain site wound. This provided hemostasis. Concerns are as noted above. (3) Elevated protime: Code(s): R79.1 - Abnormal coagulation profile Status: Acute Assessment and Plan: Abnormal protime this morning with INR 2.0. I do not see a medication or particular reason for this. Will recheck coags as well as a CBC. She is receiving low-dose Lovenox 40 mg daily which should not affect the protime. She takes 81 mg aspirin, an anti-platelet agent and was taking Cilostazol although I see it has been stopped. This is also an anti-platelet agent. None of these would explain the increase in protime and INR. Pending the repeat on each of these studies. Subjective Date/time seen: 12/12/22 16:26 Interval history: CTSP--complaining of abdominal pain and bleeding from JOHN drain site. JOHN drain was removed about an hour ago. Patient reports she was having increased abdominal pain even prior to that but it has worsened since the drain was removed. In addition to that she has had bleeding from the drain site. She has been unable to get comfortable. Review of Systems Review of Systems: All systems reviewed & are unremarkable except as noted in HPI and below (HPI and those items noted below) Constitutional: Constitutional: Denies chills, Denies fever(s) and Reports poor appetite Cardiovascular: Cardiovascular: Denies chest pain, Denies diaphoresis, Denies dyspnea and Denies paroxysmal nocturnal dyspnea Respiratory: Respiratory: Denies chest congestion, Denies cough and Denies dyspnea Gastrointestinal: Gastrointestinal: Reports as per HPI, Reports abdominal pain and Denies vomiting Integumentary/Breasts: Skin/Breast: Denies lesions and Denies rash Exam Const: General: no acute distress, alert and uncomfortable Nutritional Appearance: thin GI: Inspection: non-distended, incision (Dry and healing), scaphoid and other (Old blood oozing from JOHN site.) GI Palp: Yes Firmness to palpation present (GI), Yes Tenderness to palpation present (GI) and Yes Rigid due to palpation Objective Data Vital Signs Vital Signs: Vital Signs - 24 hr 12/11/22 17:03 12/11/22 17:09 12/11/22 17:00 Temperature 36.3 C L Pulse Rate 168 H 71 168 H Respiratory Rate 22 H Blood Pressure 82/65 L Pulse Oximetry 90 Oxygen Delivery Oxygen Flow Rate 12/11/22 17:00 12/11/22 19:56 12/11/22 20:23 Temperature 36.6 C Pulse Rate 115 H Respiratory Rate 20 Blood Pressure 90/63 L Pulse Oximetry 90 95 93 Oxygen Delivery Nasal Cannula Nasal Cannula Oxygen Flow Rate 4 5 12/11/22 20:00 12/11/22 22:00 12/11/22 23:13 Temperature 36.4 C Pulse Rate 121 H 105 H 109 H Respiratory Rate 20 Blood Pressure 113/66 Pulse Oximetry 98 Oxygen Delivery Oxygen Flow Rate 12/12/22 00:00 12/12/22 02:00 12/12/22 04:00 Temperature Pulse Rate 106 H 101 H 101 H Respiratory Rate Blood Pressure Pulse Oximetry Oxygen Delivery Oxygen Flow Rate
[2022-12-12 17:03] LABS: Hematocrit 28.1 % (37.0-47.0); Hemoglobin 9.2 g/dL (12.0-15.0); Mean Corpuscular HGB Conc 32.7 g/dl (32-36); Mean Corpuscular Hemoglobin 28.5 pg (26-34); Mean Platelet Volume 10.1 fl (7.4-10.4); Platelet Count Result 520 k/mm3 (150-375); Red Blood Count 3.23 M/mm3 (4.2-5.4); Red Cell Distribution Width 15.3 % (11.5-14.5); White Blood Count 14.4 K/mm3 (4.5-10.0)
[2022-12-12 17:14] LABS: Prothrombin Time 21.9 Seconds (11.1-14.7)
[2022-12-12 17:15] LABS: Partial Thromboplastin Time 58.1 SECONDS (22.3-36.8)
[2022-12-12 20:16] LABS: Glucose Point of Care 112 mg/dl (65-105)
[2022-12-12] MEDS: KCL 40 MEQ/D5/0.9% SOD CHL 1,000 ML 100 ML IV CONT (20:59)
[2022-12-12] MEDS: METOPROLOL TARTRATE INJ 5 MG/5 ML VIAL IV PUSH (21:44)
[2022-12-13] VITALS (13 sets, daily range): BP systolic 101–120; BP diastolic 56–72; PULSE 84–132; RESP 20–35; TEMP 36.4–38.2; O2SAT 85–100
[2022-12-13] MEDS: MORPHINE SULFATE (*CRX) 2 MG/ML INJ IV PUSH (00:10)
[2022-12-13] MEDS: MORPHINE SULFATE (*CRX) 4 MG/ML INJ IV PUSH (02:10)
[2022-12-13] MEDS: HYDROmorphone HCL INJ (*CRX) 1 MG/ML SYR IV PUSH (03:49)
[2022-12-13 04:27] LABS: Hematocrit 26.4 % (37.0-47.0); Hemoglobin 8.6 g/dL (12.0-15.0); Mean Corpuscular HGB Conc 32.6 g/dl (32-36); Mean Corpuscular Hemoglobin 28.6 pg (26-34); Mean Corpuscular Volume 87.7 fl (80-100); Mean Platelet Volume 10.5 fl (7.4-10.4); Platelet Count Result 515 k/mm3 (150-375); Red Blood Count 3.01 M/mm3 (4.2-5.4); Red Cell Distribution Width 15.5 % (11.5-14.5); White Blood Count 16.2 K/mm3 (4.5-10.0)
[2022-12-13 04:41] LABS: Anion Gap 5 mmol/L (8-16); Blood Urea Nitrogen 8 mg/dL (7-17); Calcium 7.7 mg/dL (8.4-10.2); Carbon Dioxide 23 mmol/L (22-30); Chloride 104 mmol/L (98-107); Estimated CRCL calculation 51 ml/min; Estimated Glomerular Filt Rate > 60; Glucose 112 mg/dL (65-110); Potassium 4.4 mmol/L (3.4-5.0); Sodium 132 mmol/L (137-145)
[2022-12-13] MEDS: LORazepam INJ (*CRX) 2 MG/ML VIAL 1 MG IV PUSH (05:03)
[2022-12-13] MEDS: KCL 40 MEQ/D5/0.9% SOD CHL 1,000 ML 100 ML IV CONT ×2 (07:33→21:54)
[2022-12-13 08:45] LABS: Alveolar/Arterial O2 Gradient 219.4 mmHg; Base Excess ABG -4.2 mEq/l (+/-2.0); Fractional Inspired Oxygen 44 %; HCO3 ABG 20.6 mEq/l (22.0-26.0); Oxygen Content ABG 10.5 %vol (16.0-22.0); PCO2 ABG 36.4 mmHg (35.0-45.0); PO2 ABG 52.8 mmHg (80.0-100.0); Total Hemoglobin 8.7 g/dL (12.0-18.0); pH ABG 7.371 (7.350-7.450)
[2022-12-13 08:54] LABS: Oxygen Saturation ABG 86.7 % (95.0-100.0)
[2022-12-13 08:55] LABS: Device NASAL CANNULA; Modified Allen's Test Pass; Oxyhemoglobin 85.6 % THb (90.0-100.0); Site Drawn LEFT RADIAL
--- NOTE | 2022-12-13 09:02 | PC.NURSE ---
Upon assessment of pt, this nurse noticed pt to be altered. Pt was placed on NRB by prior nurse around 4am. This nurse attempted to wean pt to 6LNC. Pt was sating 85-90%. Madeline De La Fuente NP was notified of Pt condition. Stat ABG was ordered.
--- NOTE | 2022-12-13 09:56 | PM.PNGS ---
Progress Note: A&P Assessment and Plan (1) Chronic respiratory failure: Qualifiers: Respiratory failure complication: hypoxia Qualified Code(s): J96.11 - Chronic respiratory failure with hypoxia Code(s): J96.10 - Chronic respiratory failure, unspecified whether with hypoxia or hypercapnia Status: Chronic Assessment and Plan: More hypoxemic today. Discussed with hospitalist, Anna De La Fuente. Blood cultures and CT scan of the chest to been ordered. She has been started on imipenem. Currently receiving 6 L per nasal cannula. White blood cell count is higher but there is no left shift. White blood cell count was decreasing but has increased the last 2 days. Today is 16,000. (2) Altered mental status: Qualifiers: Altered mental status type: somnolence Qualified Code(s): R40.0 - Somnolence Code(s): R41.82 - Altered mental status, unspecified Status: Chronic Assessment and Plan: Very confused this morning. Chest x-ray does not demonstrate any significant pneumonia and this could be due to opioid access as patient has been taking pain meds consistently. Discussed this as well. Will stop the p.r.n. morphine and give only a p.r.n. low-dose of fentanyl 12.5 mcg. All also change her 10 mg oxycodone back to Q 8 hours p.r.n.. Altered mental status could also be due to sepsis. White blood cell count higher last 2 days but no left shift. Blood cultures urine cultures and pulmonary workup as above. (3) Common bile duct leak: Code(s): K83.8 - Other specified diseases of biliary tract Status: Acute Assessment and Plan: This is actually showing signs of improvement. There is less coming out of the right-sided JOHN drain than there is bile draining out the T-tube. Hopefully the leak is starting to slow. (4) Tachycardia: Code(s): R00.0 - Tachycardia, unspecified Status: Acute Assessment and Plan: Still sinus tachycardia about 120. No AFib with RVR on monitor. (5) Opioid dependence with current use: Code(s): F11.20 - Opioid dependence, uncomplicated Status: Chronic Assessment and Plan: See above. May well be the cause of her altered mental status today. Decreasing opioids as above. (6) Bleeding from wound: Code(s): T14.8XXA - Other injury of unspecified body region, initial encounter Status: Acute Assessment and Plan: Old blood draining from JOHN site after removed yesterday at a very constant slow rate. Coagulopathy was not any worse than it was yesterday morning. Suturing the site has resulted in hemostasis. There was no intra-abdominal bleeding on her CT scan. H&H is low but stable. Subjective Subjective Date/Time Seen: 12/13/22 09:56 Post Op day: #7 (Bile duct reconstruction) Patient reports: afebrile and other (Very confused) Review of Systems Review of Systems: ROS unobtainable: Yes unobtainable due to mental status (Confused this morning) Exam Narrative: Patient requiring 5-6 L per minute nasal cannula oxygen to maintain sats this morning. Chest x-ray unrevealing. She is very confused. Unable to tell me my name, the hospital, the year. Has been taking narcotics regularly. Const: General: comfortable, no acute distress, awake and thin Orientation/consciousness: No oriented to person, No oriented to place, No oriented to time and confusion GI: Inspection: incision (Dry and healing well, no bleeding JOHN site from yesterday) and other (Bile in JOHN but more bile in T-tube) GI Palp: Yes Soft to palpation and Yes Tenderness to palpation present (GI) Auscultation: normoactive bowel sounds Objective Data Vital Signs Vital Signs: Vital Signs - 24 hr 12/12/22 10:01 12/12/22 12:00 12/12/22 12:38 Temperature 36.6 C Pulse Rate 109 H 125 H 118 H Respiratory Rate 24 H Blood Pressure 142/80 H Pulse Oximetry 90 Oxygen Delivery Oxygen Flow Rate 12/12/22 12:00 12/12/22 16
[2022-12-13 10:23] LABS: Alanine Aminotransferase 17 U/L (6-35); Albumin Level 2.7 g/dL (3.5-5.1); Alkaline Phosphatase 91 U/L (38-126); Aspartate Amino Transferase 21 U/L (14-36); Bilirubin,Total 0.4 mg/dL (0.2-1.3)
[2022-12-13 10:24] LABS: Lactic Acid Reflex 0.7 mmol/L (0.7-2.0)
[2022-12-13] MEDS: HALOPERIDOL LACTATE 5 MG/ML VIAL IM (10:58)
--- NOTE | 2022-12-13 10:59 | P.PNIM_ITS ---
Progress Note: A&P Assessment and Plan (1) Sepsis: Qualifiers: Sepsis acute organ dysfunction status: without acute organ dysfunction Sepsis type: sepsis due to unspecified organism Qualified Code(s): A41.9 - S epsis, unspecified organism Code(s): A41.9 - Sepsis, unspecified organism Status: Acute Assessment and Plan: Patient presented to the ED and noted to have Temp 100.6F, HR 122, RR 28, spO2 78% RA, WBC 13, possible cellulitis or cholecystitis. * Lactic acid 1.4 * CRP 5.5 * Continue Zosyn IV Q6 hours, started? 11/29 * continue IV hydration * Trend CBC and monitor temperature curve * PRN acetaminophen for fever. 12/13/22- patient with increased WBC 16.2, lactic acid 0.7, HR 110s, RR>20, and requiring increased supplemental oxygen. CXR suggests pneumonia, possible aspiration. Stopped Zosyn. Changed to Primaxin 500 mg IV Q8 hours and Doxycycline 100 mg BID for MRSA coverage. Unable to give Zyvox due to concurrent SSRI use for now and allergy to Vancomycin. Repeat blood cultures ordered. (2) Cellulitis of leg, left: Code(s): L03.116 - Cellulitis of left lower limb Status: Acute Assessment and Plan: Left leg noted to be red and excoriated. She has previously been treated with Primaxin IV and PO Bactrim following hospitalization 08/2022 and clindamycin PO x10 days 10/2022 from the ED.? * Continue Zosyn IV Q6 hours. * Elevate LLE. * Wound care consulted and appreciate recommendations. * continue mupirocin ointment BID and add eucerin cream daily. * ABIs - severe PAD. L MAGDIEL 0.49, R MAGDIEL 0.53 Outpatient vascular evaluation warranted and discussed with patient and daughter. ASA 81 mg daily added. * 12/02/22 slightly improved. Will transition to oral antibiotics if HIDA scan is negative for acute cholecystitis. * 12/03/22 antibiotic day . * 12/04/22 antibiotic day 05/10 * 12/05/22 antibiotic day 06/09. Post op cholecystitis day 1. Cellulitis improving. Continue antibiotics.? Per patient legs are improving. * 12/06/22 antibiotic day 07/10.? Patient's legs are continuing to improve * 12/07/2022 antibiotic day 08/10.? Patient's legs continue to improve. * 12/08/2022 antibiotic day 09/09. * 12/09/22 patient's antibiotic will be continued per surgery recommendations. * 12/10/22 cellulitis much improved/resolved.? Remainder skin color changes most likely due to PAD. Improving. Appears resolved. (3) Cholelithiasis: Qualifiers: Cholelithiasis location: gallbladder Code(s): K80.20 - Calculus of gallbladder without cholecystitis without obstruction Status: Chronic Assessment and Plan: CT abdomen and pelvis shows cholelithiasis with intrahepatic and extrahepatic duct dilation, mild gallbladder and pancreatic duct dilation. No definitive mass or obstruction. * Abdominal US - mild intrahepatic biliary dilation, cholelithiasis and dilated common bile duct. * HIDA suggests acute cholecystitis * MRCP with mildly dilated common bile duct, cholelithiasis, no choledocholithiasis * 12/01/22?multiple episodes of bilious emesis today. Upper GI series without obstruction. * General surgery consulted for assistance with management.? * started on Zosyn IV 11/29/22 * Underwent cholecystectomy 12/04/22? * 12/05/22?mildly elevated LFTs on labs. ERCP with bile duct stent placement today. * 12/06/22?Postop day 1 ERCP with bile duct stent placement.? * GI and General surgery both continuing to follow patient.? * Surgeon had discussed possible transfer on 12/06/22 however,?Unable to transfer patient and she was taken into surgery for laparoscopic bile duct repair. * 12/07/22?placement of a T-tube and T-tub
--- NOTE | 2022-12-13 10:59 | PM.IMPN ---
Progress Note: A&P Assessment and Plan (1) Sepsis: Qualifiers: Sepsis acute organ dysfunction status: without acute organ dysfunction Sepsis type: sepsis due to unspecified organism Qualified Code(s): A41.9 - Sepsis, unspecified organism Code(s): A41.9 - Sepsis, unspecified organism Status: Acute Assessment and Plan: Patient presented to the ED and noted to have Temp 100.6F, HR 122, RR 28, spO2 78% RA, WBC 13, possible cellulitis or cholecystitis. Lactic acid 1.4 CRP 5.5 Continue Zosyn IV Q6 hours, started? 11/29 continue IV hydration Trend CBC and monitor temperature curve PRN acetaminophen for fever. 12/13/22- patient with increased WBC 16.2, lactic acid 0.7, HR 110s, RR>20, and requiring increased supplemental oxygen. CXR suggests pneumonia, possible aspiration. Stopped Zosyn. Changed to Primaxin 500 mg IV Q8 hours and Doxycycline 100 mg BID for MRSA coverage. Unable to give Zyvox due to concurrent SSRI use for now and allergy to Vancomycin. Repeat blood cultures ordered. (2) Cellulitis of leg, left: Code(s): L03.116 - Cellulitis of left lower limb Status: Acute Assessment and Plan: Left leg noted to be red and excoriated. She has previously been treated with Primaxin IV and PO Bactrim following hospitalization 08/2022 and clindamycin PO x10 days 10/2022 from the ED.? Continue Zosyn IV Q6 hours. Elevate LLE. Wound care consulted and appreciate recommendations. continue mupirocin ointment BID and add eucerin cream daily. ABIs - severe PAD. L MAGDIEL 0.49, R MAGDIEL 0.53 Outpatient vascular evaluation warranted and discussed with patient and daughter. ASA 81 mg daily added. 12/02/22 slightly improved. Will transition to oral antibiotics if HIDA scan is negative for acute cholecystitis. 12/03/22 antibiotic day 5 of 10. 12/04/22 antibiotic day 05/1012/05/22 antibiotic day 06/09. Post op cholecystitis day 1. Cellulitis improving. Continue antibiotics.? Per patient legs are improving. 12/06/22 antibiotic day 8/10.? Patient's legs are continuing to improve 12/07/2022 antibiotic day 08/10.? Patient's legs continue to improve. 12/08/2022 antibiotic day 09/09. 12/09/22 patient's antibiotic will be continued per surgery recommendations. 12/10/22 cellulitis much improved/resolved.? Remainder skin color changes most likely due to PAD. Improving. Appears resolved. (3) Cholelithiasis: Qualifiers: Cholelithiasis location: gallbladder Code(s): K80.20 - Calculus of gallbladder without cholecystitis without obstruction Status: Chronic Assessment and Plan: CT abdomen and pelvis shows cholelithiasis with intrahepatic and extrahepatic duct dilation, mild gallbladder and pancreatic duct dilation. No definitive mass or obstruction. Abdominal US - mild intrahepatic biliary dilation, cholelithiasis and dilated common bile duct. HIDA suggests acute cholecystitis MRCP with mildly dilated common bile duct, cholelithiasis, no choledocholithiasis 12/01/22?multiple episodes of bilious emesis today. Upper GI series without obstruction. General surgery consulted for assistance with management.? started on Zosyn IV 11/29/22 Underwent cholecystectomy 12/04/22? 12/05/22?mildly elevated LFTs on labs. ERCP with bile duct stent placement today. 12/06/22?Postop day 1 ERCP with bile duct stent placement.? GI and General surgery both continuing to follow patient.? Surgeon had discussed possible transfer on 12/06/22 however,?Unable to transfer patient and she was taken into surgery for laparoscopic bile duct repair. 12/07/22?placement of a T-tube and T-tube cholangiogram.?Patient's bile duct was found to be necrosis and treated in surgery.?2 JOHN drains placed 12/11/22 POD 7 cholecystectomy and POD 5 following bile duct repair. management per general surgery. Day 13 of Zosyn and continued per general surgery. She c/o increased abdominal pain and reports taking Oxycontin 10 mg PO BID plus oxycodone IR 10 mg in the
[2022-12-13 11:02] LABS: Procalcitonin 0.3 ng/mL
--- NOTE | 2022-12-13 11:25 | PM.CNPUL ---
Assessment and Plan Assessment and plan (1) COPD (chronic obstructive pulmonary disease): Qualifiers: COPD type: emphysema Emphysema type: unspecified Qualified Code(s): J43.9 - Emphysema, unspecified Code(s): J44.9 - Chronic obstructive pulmonary disease, unspecified Status: Chronic Assessment and Plan: Patient with a 43 pack year tobacco use, current using, she has severe apical predominant panlobular emphysema on her CT scan of the chest on 11/29/2022. She has previously been told she was hypoxemic and required oxygen but she refused. Home medication list includes increased Ellipta. Currently she has no wheezing on exam. She has not been on bronchodilators because she has refused them. I do not think she has a COPD exacerbation. I do not feel she needs bronchodilators, inhaled steroids or systemic corticosteroids at this time. Her blood gas on 12/13 demonstrates a pH of 7.37/36/53 on 6 L nasal cannula. Blood gas on admission was a pH of 7.40/43/57 on 3 L nasal cannula. Blood gas on room air on 09/13/2022 demonstrated a pH of 7.40/41/48. Her serum bicarbonate was 25 on admission. There is no evidence of acute or chronic hypercarbic respiratory failure. (2) Hypoxia: Code(s): R09.02 - Hypoxemia Status: Acute Assessment and Plan: Patient has a blood gas on room air on 09/13/2022 of 7.40/41/48 qualify in her for supplemental oxygen a that time. She has been prescribed supplemental oxygen prior to this admission but refuses to wear it. Currently her oxygen requirements are at 3 L. Previously this morning she was agitated and fighting and required up to 15 L. She is now sedated and calm. Will order CT angiogram, upper and lower extremities to assess for PE and DVT. Her chest x-ray Actually demonstrates mild improvement in the right lower lobe infiltrate is not remarkably different than 12/12/2022 and I have a low clinical suspicion for aspiration, aspiration pneumonia or new in hospital acquired pneumonia. She has been changed to imipenem and doxycycline and would continue these. Blood cultures are pending. I will order another influenza, RSV and COVID RT PCR study. Of note, the patient does have a PFO by echocardiogram and anything that increases her pulmonary pressures will increase her right to left shunt and may worsen her hypoxemia. Will follow with you. History of Present Illness History of Present Illness Consult date: 12/13/22 Chief complaint: Cholecystitis Narrative: 12/13/2022: This is a new pulmonary consult for hypoxemia. 67-year-old woman with a history of COPD (50 PY, current use), PFO by echo on 08/2022, hypertension, depression, left renal mass, and chronic back pain s/p L4-5 fusion with right foot drop. Patient has COPD with severe apical predominant panlobular emphysema on first CT scan in our system from 09/15/2022, hypoxic respiratory failure with home O2 assessment on 09/16/2022 requiring 2 L at rest and 2 L with activity, on home incruse ellipta. patient presented to the emergency department on 11/29/2022 with confusion the ER note states she refuses to wear her oxygen And was sent back to the company. Her room air saturations were 78% and required 7 L nasal cannula with saturations 91%. She had 2 falls on . temperature was 38.1?. Lungs were clear to auscultation. White blood cell count was 13.2 with 1.3% eosinophils equal 172/uL. COVID and influenza RT PCR negative serum bicarbonate 25 CRP 5.5. ABG on 3 L was 7.40/43/57. CT scan chest abdomen and pelvis demonstrated severe apical predominant panlobular emphysema with mild bibasilar atelectasis. intrahepatic and extrahepatic biliary dilatation with mildly distended gallbladder cholelithiasis, chronic compression fractures T12 and L1. Patient was started on Zosyn for cellulitis and possible cholecystitis. admission H&P states scattered wheezes. Her mental status improved.
[2022-12-13 11:53] LABS: Hematocrit 24.3 % (37.0-47.0); Hemoglobin 7.9 g/dL (12.0-15.0)
[2022-12-13] MEDS: DOXYCYCLINE 100 MG/NS 100 ML 100 MG/100 ML BAG IVPB ×2 (12:13→21:10)
[2022-12-13 12:59] LABS: NT Pro B Type Natriuretic Pept 1670 pg/mL (19.9-100)
--- NOTE | 2022-12-13 14:29 | PC.NURSE ---
Around 1000, RN attempted to place Hardwick Catheter per order. Pt was altered, cussing at staff, refusing catheter placement,and trying to climb out of bed. Notified Madeline De La Fuente NP of pt condition. IMM[employer]RATION PATROL INSPECTOR at bedside shortly after notification. Haldol and ativan ordered due to pt's altered mental status and behavior. Pt continued to take off oxygen. Decision was made to move pt to ICU for more frequent monitoring.
[2022-12-13 16:38] LABS: IFOB Positive Control Positive; Immunochemical Fecal Occult Bl Negative (N)
[2022-12-13 16:54] LABS: Appearance Urine Clear (Clear); Bilirubin Urine Negative (Negative); Blood Urine 1+ (Negative); Color Urine Yellow (Yellow); Glucose Urine UA Negative (Negative); Ketones Urine Negative (Negative); Leukocyte Esterase Ur Negative LEU/UL (Negative); Nitrate Urine Negative (Negative); Protein Urine Trace mg/dL (Negative); Urobilinogen Urine 0.2 mg/dL (<2.0); pH Urine 5.5 (5.0-9.0)
[2022-12-13 17:06] LABS: Add Urine Microscopic? YES; Mucus Urine Rare /lpf; RBC Urine 0-2 /hpf (0-2); WBC Urine 0-3 /hpf
[2022-12-13 17:10] LABS: Influenza A QL RT-PCR Negative (Negative); Influenza B QL RT-PCR Negative (Negative); RSV RNA, RT-PCR Negative (Negative); SARS-CoV-2 RNA PCR Negative
[2022-12-13] MEDS: METOPROLOL TARTRATE 50 MG TAB PO (21:11)
[2022-12-13] MEDS: HYDROCORTISONE 1% 30 GM CREAM 1 APPLIC TOPICAL (21:55)
[2022-12-14] VITALS (19 sets, daily range): BP systolic 96–137; BP diastolic 56–87; PULSE 79–103; RESP 14–26; TEMP 36.3–37.6; O2SAT 90–100
[2022-12-14 03:41] LABS: Basophils Percent Auto 0.4 % (0.2-1.2); Eosinophils Absolute Auto 0.4 K/mm3 (0-0.3); Eosinophils Percent Auto 3.9 % (0-4.4); Hematocrit 23.8 % (37.0-47.0); Hemoglobin 7.9 g/dL (12.0-15.0); Immature Granulocyte Absolute 0.05 K/mm3 (0.00-0.031); Immature Granulocyte Percent A 0.5 % (0-0.5); Lymphocytes Absolute Auto 1.27 K/mm3 (0.9-3.2); Lymphocytes Percent Auto 11.5 % (18.3-44.2); Mean Corpuscular HGB Conc 33.2 g/dl (32-36); Mean Corpuscular Hemoglobin 28.8 pg (26-34); Mean Corpuscular Volume 86.9 fl (80-100); Mean Platelet Volume 10.1 fl (7.4-10.4); Monocytes Absolute Auto 0.9 K/mm3 (0.1-0.6); Monocytes Percent Auto 7.9 % (2.6-8.5); Neutrophils Absolute Auto 8.4 K/mm3 (1.3-6.7); Neutrophils Percent Auto 75.8 % (45.5-73.1); Platelet Count Result 425 k/mm3 (150-375); Red Blood Count 2.74 M/mm3 (4.2-5.4); Red Cell Distribution Width 15.5 % (11.5-14.5)
[2022-12-14 03:51] LABS: Alanine Aminotransferase 15 U/L (6-35); Albumin Level 2.5 g/dL (3.5-5.1); Alkaline Phosphatase 87 U/L (38-126); Anion Gap 3 mmol/L (8-16); Aspartate Amino Transferase 18 U/L (14-36); Bilirubin,Total 0.3 mg/dL (0.2-1.3); Blood Urea Nitrogen 5 mg/dL (7-17); Calcium 7.7 mg/dL (8.4-10.2); Carbon Dioxide 21 mmol/L (22-30); Chloride 112 mmol/L (98-107); Estimated CRCL calculation 66 ml/min; Estimated Glomerular Filt Rate > 60; Glucose 113 mg/dL (65-110); Potassium 4.3 mmol/L (3.4-5.0); Sodium 136 mmol/L (137-145)
[2022-12-14 05:04] LABS: Folic Acid > 20.0 ng/mL (2.76->20)
[2022-12-14] MEDS: KCL 40 MEQ/D5/0.9% SOD CHL 1,000 ML 100 ML IV CONT ×2 (08:37→23:40)
--- NOTE | 2022-12-14 08:38 | PM.IMPN ---
Progress Note: A&P Assessment and Plan (1) Sepsis: Qualifiers: Sepsis acute organ dysfunction status: without acute organ dysfunction Sepsis type: sepsis due to unspecified organism Qualified Code(s): A41.9 - Sepsis, unspecified organism Code(s): A41.9 - Sepsis, unspecified organism Status: Acute Assessment and Plan: Suspected cholecystitis at admission, started on zosyn 12/13/22 WBC 16.2, lactic acid 0.7, HR 110s, RR>20, and requiring increased supplemental oxygen. CXR suggests pneumonia, possible aspiration. Stopped Zosyn. Changed to Primaxin 500 mg IV Q8 hours and Doxycycline 100 mg BID for MRSA coverage. Repeat blood cultures ordered. (2) Cellulitis of leg, left: Code(s): L03.116 - Cellulitis of left lower limb Status: Acute Assessment and Plan: Left leg noted to be red and excoriated. She has previously been treated with Primaxin IV and PO Bactrim following hospitalization 08/2022 and clindamycin PO x10 days 10/2022 from the ED.? Appears resolved. (3) Cholelithiasis: Qualifiers: Cholelithiasis location: gallbladder Code(s): K80.20 - Calculus of gallbladder without cholecystitis without obstruction Status: Chronic Assessment and Plan: 11/29/23 Started on zosyn 12/04/22?Cholecystectomy 12/05/22?ERCP with bile duct stent placement 12/06/22 Unable to transfer patient and she was taken into surgery for laparoscopic bile duct repair. 12/07/22?Placement of a T-tube and T-tube cholangiogram.?Patient's bile duct was found to be necrotic and treated in surgery.?2 JOHN drains placed. 12/11/22 POD 7 cholecystectomy and POD 5 following bile duct repair. Day 13 of Zosyn and continued per general surgery. She c/o increased abdominal pain and reports taking Oxycontin 10 mg PO BID plus oxycodone IR 10 mg in the morning and evening with oxycontin dose, as well as twice during the day. changed oral medications to reflect this. IV morphine for breakthrough pain.? 12/12/22 JOHN drain left abdomen to be discontinued per surgery. Repeat CT abd/pelvis to be obtained.? 12/13/22 Increased output from T-drain instead of JOHN. Per surgery, appears improving and CT abd/pelvis from 12/12/22 does not show abscess, intra-abdominal air or fluid. Of note, stomach is distended with prominent fluid noted in the stomach. Patient made NPO and upper GI series ordered per surgery. (4) COPD (chronic obstructive pulmonary disease): Qualifiers: COPD type: emphysema Emphysema type: unspecified Qualified Code(s): J43.9 - Emphysema, unspecified Code(s): J44.9 - Chronic obstructive pulmonary disease, unspecified Status: Chronic Assessment and Plan: 12/13/22 repeat chest x-ray possible aspiration pneumonia. ABG shows hypoxemia. No hypercapnia. Push incentive spirometry PRN nebulizers Continue chronic oxygen. Patient refusing to use Incruse inhaler Consult pulmonology for assistance and appreciate recommendations. 12/13/22 CTA chest suggests suggests severe emphysema, no PE and dependent airspace opacities, likely atelectasis. (5) Acute metabolic encephalopathy: Code(s): G93.41 - Metabolic encephalopathy Status: Acute Assessment and Plan: Likely secondary to acute infection and hypoxia with suspected underlying chronic hypoxia s/t severe COPD at baseline, was supposed to be on 2-3L at baseline but noncompliant with this MRI pending Worsened yesterday, 12/13/22, given haldol and wrist restraints and moved to ICU for closer monitoring TSH/B12/folate all WNL (6) Atrial fibrillation with RVR: Code(s): I48.91 - Unspecified atrial fibrillation Status: Acute Assessment and Plan: Appreciate cardio consultation Currently rate controlled on metoprolol 50 mg q12h Keep magnesium >2, potassium >4 [id number] score 4, HAS-BLED score 2 moderate risk for bleeding Echocardiogram 08/2022 with normal systolic function, EF 50-55%, intermediate diastolic
[2022-12-14] MEDS: DOXYCYCLINE 100 MG/NS 100 ML 100 MG/100 ML BAG IVPB ×2 (08:39→20:57)
[2022-12-14] MEDS: FERROUS SULFATE 324 MG TABLET PO (08:42)
[2022-12-14] MEDS: PREGABALIN (*CRX) 50 MG CAPSULE 100 MG PO (08:42)
[2022-12-14] MEDS: HYDROCORTISONE 1% 30 GM CREAM 1 APPLIC TOPICAL ×2 (08:42→20:56)
[2022-12-14] MEDS: METOPROLOL TARTRATE 50 MG TAB PO ×2 (08:43→20:56)
[2022-12-14] MEDS: ASPIRIN 81 MG ENTERIC TABLET PO (08:43)
[2022-12-14] MEDS: PANTOPRAZOLE 40 MG TABLET PO (08:43)
[2022-12-14] MEDS: ATORVASTATIN 40 MG TABLET PO (08:43)
[2022-12-14] MEDS: oxyCODONE HCL (*CRX) 5 MG TAB IR 10 MG PO ×3 (08:48→21:06)
[2022-12-14 09:47] LABS: Magnesium 1.6 mg/dL (1.6-2.3)
[2022-12-14] MEDS: SERTRALINE HCL 50 MG TABLET 100 MG PO (11:17)
--- NOTE | 2022-12-14 11:43 | PM.PNPUL ---
Progress Note: A&P Assessment and Plan (1) COPD (chronic obstructive pulmonary disease): Qualifiers: COPD type: emphysema Emphysema type: unspecified Qualified Code(s): J43.9 - Emphysema, unspecified Code(s): J44.9 - Chronic obstructive pulmonary disease, unspecified Status: Chronic Assessment and Plan: Patient with a 43 pack year tobacco use, current using, she has severe apical predominant panlobular emphysema on her CT scan of the chest on 11/29/2022. She has previously been told she was hypoxemic and required oxygen but she refused. Home medication list includes increased Ellipta. 12/13 Currently she has no wheezing on exam. She has not been on bronchodilators because she has refused them. I do not think she has a COPD exacerbation. I do not feel she needs bronchodilators, inhaled steroids or systemic corticosteroids at this time. Her blood gas on 12/13 demonstrates a pH of 7.37/36/53 on 6 L nasal cannula. Blood gas on admission was a pH of 7.40/43/57 on 3 L nasal cannula. Blood gas on room air on 09/13/2022 demonstrated a pH of 7.40/41/48. Her serum bicarbonate was 25 on admission. There is no evidence of acute or chronic hypercarbic respiratory failure. 12/14 Patient states she is breathing fine and has no fever, chills, rigors, cough, phlegm production or hemoptysis. Currently the patient is on 4 L nasal cannula saturations 90%. White blood cell count is 11.0. Refusing bronchodilators because she feels well. (2) Hypoxia: Code(s): R09.02 - Hypoxemia Status: Acute Assessment and Plan: Patient has a blood gas on room air on 09/13/2022 of 7.40/41/48 qualify in her for supplemental oxygen a that time. She has been prescribed supplemental oxygen prior to this admission but refuses to wear it. Currently her oxygen requirements are at 3 L. Previously this morning she was agitated and fighting and required up to 15 L. She is now sedated and calm. Will order CT angiogram, upper and lower extremities to assess for PE and DVT. Her chest x-ray Actually demonstrates mild improvement in the right lower lobe infiltrate is not remarkably different than 12/12/2022 and I have a low clinical suspicion for aspiration, aspiration pneumonia or new in hospital acquired pneumonia. She has been changed to imipenem and doxycycline and would continue these. Blood cultures are pending. I will order another influenza, RSV and COVID RT PCR study. Of note, the patient does have a PFO by echocardiogram and anything that increases her pulmonary pressures will increase her right to left shunt and may worsen her hypoxemia. 12/14 Patient states she is breathing fine and has no fever, chills, rigors, cough, phlegm production or hemoptysis. Currently the patient is on 4 L nasal cannula saturations 90%. White blood cell count is 11.0. Etiology of patient's hypoxemia include COPD, bibasilar atelectasis status post abdominal surgery, PFO. Currently she is on 4 L nasal cannula and I suspect this will be close to what she needs on discharge. Goal saturation 90-94%. if cultures remain negative I am comfortable discontinuing antibiotics from a pulmonary perspective as there were no focal infiltrates to suggest pneumonia on her CT scan from 12/13. Patient will need home O2 assessment on the day of discharge and an overnight oximetry on the night prior to discharge to determine her oxygen needs. The patient tells me she does not need oxygen and these test should only be completed if the patient agrees to wear oxygen at home in the future. Discussed with Dr. Acevedo, will sign off, call with questions Subjective Date/time seen: 12/14/22 11:43 Interval history: ?12/13/2022:? This is a new pulmonary consult for hypoxemia.? 67-year-old woman with a history of COPD (23 PY, current use), PFO by echo on 08/2022, hypertension, depression, left renal mass, and chronic back pain s/p L4-5 fusion
[2022-12-14 12:31] LABS: Glucose Point of Care 113 mg/dl (65-105)
--- NOTE | 2022-12-14 14:21 | PM.PNGS ---
Subjective Subjective Date/Time Seen: 12/14/22 14:22 Interval history: The patient remained in the ICU. Yesterday she was quite confused and excess a narcotic medications was thought to be the reason. Today she is much more lucid and shows no signs of confusion. Her narcotic pain medication regimen has been adjusted accordingly and she has improved. She is very hungry today and does not complain of any nausea. An upper GI study was ordered by Dr. Chamberlain however he cannot be done today due to problems with the equipment in Radiology. She continues to be afebrile without any hypotension or tachycardia. Her white blood cell count has decreased and her hemoglobin has been stable. Her T-tube drain continues to drain bile with the output greater than the extrahepatic JOHN drain. Exam Resp: Effort & Inspection: normal respiratory effort Auscultation: clear to auscultation bilaterally Cardio: Rate: regular rate Rhythm: regular rhythm GI: Other: Her abdomen is soft and nondistended. Right upper quadrant Bakari incision is stapled and the wound edges approximated without redness or drainage. T-Tube and JOHN drain are intact with normal appearing bile and the T-tube output is higher than the JOHN drain output. Neuro: Speech: normal speech Sensory Exam: normal sensation Psych: Mental Status: mental status grossly normal Affect: normal affect Objective Data Vital Signs Vital Signs: Vital Signs - 24 hr 12/13/22 16:00 12/13/22 16:00 12/13/22 16:00 Temperature 37.6 C Pulse Rate 108 H 108 H 108 H Respiratory Rate 20 20 Blood Pressure 117/62 Pulse Oximetry 94 94 Oxygen Delivery High Flow Nasal Cannula Oxygen Flow Rate 12/13/22 20:00 12/13/22 20:00 12/13/22 20:00 Temperature 37.3 C Pulse Rate 92 91 91 Respiratory Rate 20 20 Blood Pressure 107/56 L Pulse Oximetry 97 96 Oxygen Delivery High Flow Nasal Cannula Oxygen Flow Rate 12/13/22 21:11 12/13/22 22:00 12/14/22 00:00 Temperature 37.1 C Pulse Rate 85 84 79 Respiratory Rate 20 Blood Pressure 108/64 Pulse Oximetry 97 Oxygen Delivery Oxygen Flow Rate 12/14/22 00:00 12/14/22 00:00 12/14/22 02:00 Temperature 37.1 C 37.3 C Pulse Rate 79 79 88 Respiratory Rate 18 18 18 Blood Pressure 109/66 105/67 Pulse Oximetry 98 98 96 Oxygen Delivery High Flow Nasal Cannula Oxygen Flow Rate 5 12/14/22 04:00 12/14/22 04:00 12/14/22 04:00 Temperature 37.3 C Pulse Rate 88 93 93 Respiratory Rate 18 20 Blood Pressure 123/70 Pulse Oximetry 96 96 Oxygen Delivery High Flow Nasal Cannula Oxygen Flow Rate 5 12/14/22 06:00 12/14/22 07:51 12/14/22 08:00 Temperature 37.2 C Pulse Rate 99 Respiratory Rate 20 Blood Pressure 131/73 Pulse Oximetry 93 96 94 Oxygen Delivery High Flow Nasal Cannula High Flow Nasal Cannula Oxygen Flow Rate 4 4 12/14/22 08:00 12/14/22 08:43 12/14/22 10:00 Temperature 37.5 C 37.6 C Pulse Rate 100 103 H 79 Respiratory Rate 26 H 14 Blood Pressure 137/87 107/69 Pulse Oximetry 90 96 Oxygen Delivery Oxygen Flow Rate 12/14/22 12:00 12/14/22 13:43 Temperature 37.4 C Pulse Rate 86 85 Respiratory Rate 19 Blood Pressure 112/62 Pulse Oximetry 95 95 Oxygen Delivery Nasal Cannula Oxygen Flow Rate 4 Intake/Output Intake/Output: Intake & Output 12/11/22 12/12/22 12/13/22 12/14/22 23:59 23:59 23:59 23:59 Intake Total 1310 2340 2400 1200 Output Total 856 1026 883 810 Balance 454 1314 2547 390 Meds/Results Medications: Active Medications Generic Name Dose Route Start Last Admin Trade Name Freq PRN Reason Stop Dose Admin Acetaminophen 500 mg 12/04/22 17:27 Acetaminophen 500 Mg Tablet PO Q6H PRN Mild Pain (1-3) or Fever Albuterol 2.5 mg 12/09/22 11:09 Albuterol Sulfate Neb 2.5 Mg/3 Ml Inh INHALATION Q4HRT PRN Shortness Of Breath Aspirin 81 mg 12/01/22 09:00 12/14/22 08:43 Aspirin 81 Mg Enteric Tabl
--- NOTE | 2022-12-14 15:55 | PC.NURSE ---
This patient, Chantal Grove, was received from [ICU 7 ] on 12/14/22 at 1555. Patient/family oriented to unit policies and routines. Patient on 4L NC. A&O no distressed noted.
[2022-12-15] VITALS (16 sets, daily range): BP systolic 113–134; BP diastolic 55–78; PULSE 78–104; RESP 12–20; TEMP 36.3–36.9; O2SAT 95–98
[2022-12-15 04:22] LABS: Basophils Percent Auto 0.4 % (0.2-1.2); Eosinophils Absolute Auto 0.8 K/mm3 (0-0.3); Eosinophils Percent Auto 7.8 % (0-4.4); Hematocrit 25.4 % (37.0-47.0); Hemoglobin 7.8 g/dL (12.0-15.0); Immature Granulocyte Absolute 0.05 K/mm3 (0.00-0.031); Immature Granulocyte Percent A 0.5 % (0-0.5); Lymphocytes Absolute Auto 1.97 K/mm3 (0.9-3.2); Lymphocytes Percent Auto 20.1 % (18.3-44.2); Mean Corpuscular HGB Conc 30.7 g/dl (32-36); Mean Corpuscular Hemoglobin 27.8 pg (26-34); Mean Corpuscular Volume 90.4 fl (80-100); Mean Platelet Volume 10.9 fl (7.4-10.4); Monocytes Absolute Auto 0.8 K/mm3 (0.1-0.6); Monocytes Percent Auto 8.5 % (2.6-8.5); Neutrophils Absolute Auto 6.2 K/mm3 (1.3-6.7); Neutrophils Percent Auto 62.7 % (45.5-73.1); Platelet Count Result 496 k/mm3 (150-375); Red Blood Count 2.81 M/mm3 (4.2-5.4); Red Cell Distribution Width 15.7 % (11.5-14.5); White Blood Count 9.8 K/mm3 (4.5-10.0)
[2022-12-15 04:40] LABS: Alanine Aminotransferase 15 U/L (6-35); Albumin Level 2.4 g/dL (3.5-5.1); Alkaline Phosphatase 84 U/L (38-126); Anion Gap 2 mmol/L (8-16); Aspartate Amino Transferase 21 U/L (14-36); Bilirubin,Total 0.2 mg/dL (0.2-1.3); Blood Urea Nitrogen 6 mg/dL (7-17); Calcium 7.3 mg/dL (8.4-10.2); Carbon Dioxide 20 mmol/L (22-30); Chloride 114 mmol/L (98-107); Estimated CRCL calculation 56 ml/min; Estimated Glomerular Filt Rate > 60; Glucose 113 mg/dL (65-110); Potassium 4.8 mmol/L (3.4-5.0); Sodium 136 mmol/L (137-145)
[2022-12-15 04:46] LABS: Platelet Estimate Increased (Adequate)
[2022-12-15 04:47] LABS: Burr Cells 2+ (NORMAL); Schistocytes None Seen (NORMAL)
[2022-12-15] MEDS: SERTRALINE HCL 50 MG TABLET 100 MG PO (08:55)
[2022-12-15] MEDS: ATORVASTATIN 40 MG TABLET PO (08:55)
[2022-12-15] MEDS: FERROUS SULFATE 324 MG TABLET PO (08:55)
[2022-12-15] MEDS: PANTOPRAZOLE 40 MG TABLET PO (08:55)
[2022-12-15] MEDS: ASPIRIN 81 MG ENTERIC TABLET PO (08:55)
[2022-12-15] MEDS: oxyCODONE HCL (*CRX) 5 MG TAB IR 10 MG PO ×3 (08:56→21:48)
[2022-12-15] MEDS: PREGABALIN (*CRX) 50 MG CAPSULE 100 MG PO (08:56)
[2022-12-15] MEDS: HYDROCORTISONE 1% 30 GM CREAM 1 APPLIC TOPICAL ×2 (08:57→20:29)
[2022-12-15] MEDS: METOPROLOL TARTRATE 50 MG TAB PO ×2 (08:59→20:29)
--- NOTE | 2022-12-15 09:28 | PM.IMPN ---
Progress Note: A&P Assessment and Plan (1) Sepsis: Qualifiers: Sepsis acute organ dysfunction status: without acute organ dysfunction Sepsis type: sepsis due to unspecified organism Qualified Code(s): A41.9 - Sepsis, unspecified organism Code(s): A41.9 - Sepsis, unspecified organism Status: Acute Assessment and Plan: Suspected cholecystitis at admission, started on zosyn, s/p cholecystectomy 12/04/22 12/13/22 WBC 16.2, lactic acid 0.7, HR 110s, RR>20, and requiring increased supplemental oxygen. CXR suggests pneumonia, possible aspiration. Stopped Zosyn. Changed to Primaxin 500 mg IV Q8 hours and Doxycycline 100 mg BID for MRSA coverage. Repeat blood cultures ordered. 12/14/22 WBC improving, down to 11, cont current management 12/15/22 WBC resolved, cont doxy + primaxin, repeat blood cultures NGTD (2) Cellulitis of leg, left: Code(s): L03.116 - Cellulitis of left lower limb Status: Resolved Assessment and Plan: Left leg noted to be red and excoriated. She has previously been treated with Primaxin IV and PO Bactrim following hospitalization 08/2022 and clindamycin PO x10 days 10/2022 from the ED.? Appears resolved at this time. (3) Cholelithiasis: Qualifiers: Cholelithiasis location: gallbladder Code(s): K80.20 - Calculus of gallbladder without cholecystitis without obstruction Status: Chronic Assessment and Plan: 11/29/23 Started on zosyn 12/04/22?Cholecystectomy 12/05/22?ERCP with bile duct stent placement 12/06/22 Unable to transfer patient and she was taken into surgery for laparoscopic bile duct repair. 12/07/22?Placement of a T-tube and T-tube cholangiogram.?Patient's bile duct was found to be necrotic and treated in surgery.?2 JOHN drains placed. 12/11/22 POD 7 cholecystectomy and POD 5 following bile duct repair. Day 13 of Zosyn and continued per general surgery. She c/o increased abdominal pain and reports taking Oxycontin 10 mg PO BID plus oxycodone IR 10 mg in the morning and evening with oxycontin dose, as well as twice during the day. changed oral medications to reflect this. IV morphine for breakthrough pain.? 12/12/22 JOHN drain left abdomen to be discontinued per surgery. Repeat CT abd/pelvis to be obtained.? 12/13/22 Increased output from T-drain instead of JOHN. Per surgery, appears improving and CT abd/pelvis from 12/12/22 does not show abscess, intra-abdominal air or fluid. Of note, stomach is distended with prominent fluid noted in the stomach. Patient made NPO and upper GI series ordered per surgery. 12/14/22 Stable, UGI pending 12/15/22 Still awaiting UGI (4) COPD (chronic obstructive pulmonary disease): Qualifiers: COPD type: emphysema Emphysema type: unspecified Qualified Code(s): J43.9 - Emphysema, unspecified Code(s): J44.9 - Chronic obstructive pulmonary disease, unspecified Status: Chronic Assessment and Plan: 12/13/22 Repeat chest x-ray possible aspiration pneumonia. ABG shows hypoxemia. No hypercapnia. Push incentive spirometry PRN nebulizers Continue chronic oxygen. Patient refusing to use Incruse inhaler Consult pulmonology for assistance and appreciate recommendations. CTA chest suggests suggests severe emphysema, no PE and dependent airspace opacities, likely atelectasis. 12/14/22 Hypoxia resolving, worsening thought to be 2/2 agitation + R>L shunting d/t underlying PFO, keep patient calm and cont current management 12/15/22 Stable, cont to wean O2 as tolerated, appreciate pulm consult (5) Acute metabolic encephalopathy: Code(s): G93.41 - Metabolic encephalopathy Status: Acute Assessment and Plan: Likely secondary to acute infection and hypoxia with suspected underlying chronic hypoxia s/t severe COPD at baseline, was supposed to be on 2-3L at baseline but noncompliant with this MRI pending Worsened yesterday, 12/13/22, given haldol and wrist restraints and moved to ICU for closer monit
[2022-12-15] MEDS: KCL 40 MEQ/D5/0.9% SOD CHL 1,000 ML 100 ML IV CONT (10:33)
[2022-12-15] MEDS: DOXYCYCLINE 100 MG/NS 100 ML 100 MG/100 ML BAG IVPB ×2 (10:33→20:28)
--- NOTE | 2022-12-15 15:10 | PM.PNGS ---
Progress Note: A&P Assessment and Plan (1) Common bile duct leak: Code(s): K83.8 - Other specified diseases of biliary tract Status: Acute Assessment and Plan: The common bile duct leak has been controlled with placement of a T-tube. The T-tube is draining well. liver enzymes are normal. (2) Cholelithiasis: Qualifiers: Cholelithiasis location: gallbladder Code(s): K80.20 - Calculus of gallbladder without cholecystitis without obstruction Status: Chronic Assessment and Plan: Status post laparoscopic cholecystectomy. (3) Malnutrition: Code(s): E46 - Unspecified protein-calorie malnutrition Status: Acute Assessment and Plan: No evidence of gastric outlet obstruction on upper GI series today. Will go ahead and advance her to full liquids and supplement her nutrition with Ensure supplements. Subjective Subjective Date/Time Seen: 12/15/22 15:10 Patient reports: no new complaints Interval history: The patient has been transferred out of the intensive care unit to the IMU. She has been stable since transfer. She tolerated clear liquids last evening and today she had a upper GI series done showing no evidence of a gastric outlet obstruction. Her white blood cell count is normalized and her liver enzymes are normal. the T-tube is draining typical bile and the JOHN drain output has markedly decreased. Exam GI: Other: He had a soft and minimally distended. Tenderness around the right subcostal incision is expected and there is no redness or drainage from the incision both the T-tube and JOHN drain are in place. The T-tube drain has typical appearing bile draining from it. The JOHN drain has minimal drainage. Objective Data Vital Signs Vital Signs: Vital Signs - 24 hr 12/14/22 16:35 12/14/22 16:00 12/14/22 16:00 Temperature 36.3 C L Pulse Rate 86 89 Respiratory Rate 20 Blood Pressure 117/59 L Pulse Oximetry 98 96 Oxygen Delivery Nasal Cannula Oxygen Flow Rate 4 12/14/22 18:00 12/14/22 20:00 12/14/22 20:56 Temperature 36.4 C Pulse Rate 89 94 96 Respiratory Rate 16 Blood Pressure 101/56 L Pulse Oximetry 100 Oxygen Delivery Oxygen Flow Rate 12/14/22 20:00 12/14/22 20:00 12/14/22 22:00 Temperature Pulse Rate 91 89 Respiratory Rate Blood Pressure Pulse Oximetry 100 Oxygen Delivery Nasal Cannula Oxygen Flow Rate 4 12/14/22 23:26 12/15/22 00:00 12/15/22 00:00 Temperature 36.4 C Pulse Rate 81 82 Respiratory Rate 16 Blood Pressure 118/69 Pulse Oximetry 98 98 Oxygen Delivery Nasal Cannula Oxygen Flow Rate 4 12/15/22 02:00 12/15/22 03:44 12/15/22 04:00 Temperature 36.5 C Pulse Rate 81 81 78 Respiratory Rate 16 Blood Pressure 113/58 L Pulse Oximetry 97 Oxygen Delivery Oxygen Flow Rate 12/15/22 04:00 12/15/22 06:00 12/15/22 08:00 Temperature Pulse Rate 87 Respiratory Rate Blood Pressure Pulse Oximetry 97 96 Oxygen Delivery Nasal Cannula Nasal Cannula Oxygen Flow Rate 4 4 12/15/22 08:59 12/15/22 08:00 12/15/22 08:00 Temperature 36.3 C L Pulse Rate 83 90 85 Respiratory Rate 20 Blood Pressure 121/63 Pulse Oximetry 95 Oxygen Delivery Oxygen Flow Rate 12/15/22 10:00 12/15/22 12:00 12/15/22 12:00 Temperature Pulse Rate 81 86 Respiratory Rate Blood Pressure Pulse Oximetry 98 Oxygen Delivery Nasal Cannula Oxygen Flow Rate 4 12/15/22 12:00 Temperature 36.8 C Pulse Rate 80 Respiratory Rate 12 Blood Pressure 121/66 Pulse Oximetry 97 Oxygen Delivery Oxygen Flow Rate Intake/Output Intake/Output: Intake & Output 12/12/22 12/13/22 12/14/22 12/15/22 23:59 23:59 23:59 23:59 Intake Total 2340 2400 3465 1400 Output Total 8506 795 7500 420 Balance 1314 1517 1680 980 Meds/Results Medications: Active Medications Generic Name Dose Route Start Last Admin Trade Name Freq PRN Reaso
[2022-12-15 23:07] LABS: Toxigenic C. Diff NEGATIVE (NEGATIVE)
[2022-12-16] VITALS (12 sets, daily range): BP systolic 125–175; BP diastolic 70–80; PULSE 84–107; RESP 16–22; TEMP 36.4–37.1; O2SAT 93–98
[2022-12-16] MEDS: LOPERAMIDE HCL 2 MG CAPSULE PO ×3 (00:32→15:19)
[2022-12-16] MEDS: KCL 40 MEQ/D5/0.9% SOD CHL 1,000 ML 100 ML IV CONT ×3 (02:17→12:06)
--- NOTE | 2022-12-16 08:45 | PM.IMPN ---
Progress Note: A&P Assessment and Plan (1) Sepsis: Qualifiers: Sepsis acute organ dysfunction status: without acute organ dysfunction Sepsis type: sepsis due to unspecified organism Qualified Code(s): A41.9 - Sepsis, unspecified organism Code(s): A41.9 - Sepsis, unspecified organism Status: Acute Assessment and Plan: Suspected cholecystitis at admission, started on zosyn, s/p cholecystectomy 12/04/22 12/13/22 WBC 16.2, lactic acid 0.7, HR 110s, RR>20, and requiring increased supplemental oxygen. CXR suggests pneumonia, possible aspiration. Stopped Zosyn. Changed to Primaxin 500 mg IV Q8 hours and Doxycycline 100 mg BID for MRSA coverage. Repeat blood cultures ordered. 12/14/22 WBC improving, down to 11, cont current management 12/15/22 WBC resolved, cont doxy + primaxin, repeat blood cultures NGTD 12/16/22 WBC worsening, cont abx for now, day 4 of primaxin + doxy (2) Cholelithiasis: Qualifiers: Cholelithiasis location: gallbladder Code(s): K80.20 - Calculus of gallbladder without cholecystitis without obstruction Status: Chronic Assessment and Plan: 11/29/23 Started on zosyn 12/04/22?Cholecystectomy 12/05/22?ERCP with bile duct stent placement 12/06/22 Unable to transfer patient and she was taken into surgery for laparoscopic bile duct repair. 12/07/22?Placement of a T-tube and T-tube cholangiogram.?Patient's bile duct was found to be necrotic and treated in surgery.?2 JOHN drains placed. 12/11/22 POD 7 cholecystectomy and POD 5 following bile duct repair. Day 13 of Zosyn and continued per general surgery. She c/o increased abdominal pain and reports taking Oxycontin 10 mg PO BID plus oxycodone IR 10 mg in the morning and evening with oxycontin dose, as well as twice during the day. changed oral medications to reflect this. IV morphine for breakthrough pain.? 12/12/22 JOHN drain left abdomen to be discontinued per surgery. Repeat CT abd/pelvis to be obtained.? 12/13/22 Increased output from T-drain instead of JOHN. Per surgery, appears improving and CT abd/pelvis from 12/12/22 does not show abscess, intra-abdominal air or fluid. Of note, stomach is distended with prominent fluid noted in the stomach. Patient made NPO and upper GI series ordered per surgery. 12/14/22 Stable, UGI pending 12/15/22 Still awaiting UGI 12/16/22 UGI WNL, small hiatal hernia noted, ADAT, appreciate gen surgery consultation (3) COPD (chronic obstructive pulmonary disease): Qualifiers: COPD type: emphysema Emphysema type: unspecified Qualified Code(s): J43.9 - Emphysema, unspecified Code(s): J44.9 - Chronic obstructive pulmonary disease, unspecified Status: Chronic Assessment and Plan: 12/13/22 Repeat chest x-ray possible aspiration pneumonia. ABG shows hypoxemia. No hypercapnia. Push incentive spirometry PRN nebulizers Continue chronic oxygen. Patient refusing to use Incruse inhaler Consult pulmonology for assistance and appreciate recommendations. CTA chest suggests suggests severe emphysema, no PE and dependent airspace opacities, likely atelectasis. 12/14/22 Hypoxia resolving, worsening thought to be 2/2 agitation + R>L shunting d/t underlying PFO, keep patient calm and cont current management 12/15/22 Stable, cont to wean O2 as tolerated, appreciate pulm consult, now signed off 12/16/22 96% on 4L, cont to wean as tolerated (4) Acute metabolic encephalopathy: Code(s): G93.41 - Metabolic encephalopathy Status: Acute Assessment and Plan: Likely secondary to acute infection and hypoxia with suspected underlying chronic hypoxia s/t severe COPD at baseline, was supposed to be on 2-3L at baseline but noncompliant with this MRI pending Worsened yesterday, 12/13/22, given haldol and wrist restraints and moved to ICU for closer monitoring TSH/B12/folate all WNL 12/15/22 Appears resolved (5) Atrial fibrillation with RVR: Code(s): I48.91 - Unspecified atrial fi
[2022-12-16] MEDS: oxyCODONE HCL (*CRX) 5 MG TAB IR 10 MG PO ×3 (08:50→21:12)
[2022-12-16] MEDS: ATORVASTATIN 40 MG TABLET PO (08:50)
[2022-12-16] MEDS: DOXYCYCLINE 100 MG/NS 100 ML 100 MG/100 ML BAG IVPB ×2 (08:51→20:12)
[2022-12-16] MEDS: SERTRALINE HCL 50 MG TABLET 100 MG PO (08:51)
[2022-12-16] MEDS: FERROUS SULFATE 324 MG TABLET PO (08:51)
[2022-12-16] MEDS: PANTOPRAZOLE 40 MG TABLET PO (08:51)
[2022-12-16] MEDS: METOPROLOL TARTRATE 50 MG TAB PO ×2 (08:51→20:12)
[2022-12-16] MEDS: HYDROCORTISONE 1% 30 GM CREAM 1 APPLIC TOPICAL ×2 (08:52→20:18)
[2022-12-16] MEDS: PREGABALIN (*CRX) 50 MG CAPSULE 100 MG PO (08:55)
[2022-12-16] MEDS: ASPIRIN 81 MG ENTERIC TABLET PO (08:55)
[2022-12-16 10:18] LABS: Basophils Absolute Auto 0.1 K/mm3 (0.0-0.1); Basophils Percent Auto 0.7 % (0.2-1.2); Eosinophils Absolute Auto 0.5 K/mm3 (0-0.3); Eosinophils Percent Auto 3.9 % (0-4.4); Hematocrit 27.2 % (37.0-47.0); Hemoglobin 8.8 g/dL (12.0-15.0); Immature Granulocyte Absolute 0.05 K/mm3 (0.00-0.031); Immature Granulocyte Percent A 0.4 % (0-0.5); Lymphocytes Absolute Auto 1.98 K/mm3 (0.9-3.2); Mean Corpuscular HGB Conc 32.4 g/dl (32-36); Mean Corpuscular Hemoglobin 27.9 pg (26-34); Mean Corpuscular Volume 86.3 fl (80-100); Mean Platelet Volume 10.3 fl (7.4-10.4); Monocytes Absolute Auto 0.6 K/mm3 (0.1-0.6); Monocytes Percent Auto 4.6 % (2.6-8.5); Neutrophils Absolute Auto 9.9 K/mm3 (1.3-6.7); Neutrophils Percent Auto 75.4 % (45.5-73.1); Platelet Count Result 571 k/mm3 (150-375); Red Blood Count 3.15 M/mm3 (4.2-5.4); Red Cell Distribution Width 15.5 % (11.5-14.5); White Blood Count 13.2 K/mm3 (4.5-10.0)
[2022-12-16 10:26] LABS: Alanine Aminotransferase 17 U/L (6-35); Albumin Level 2.8 g/dL (3.5-5.1); Alkaline Phosphatase 105 U/L (38-126); Anion Gap 5 mmol/L (8-16); Aspartate Amino Transferase 19 U/L (14-36); Bilirubin,Total 0.3 mg/dL (0.2-1.3); Blood Urea Nitrogen 7 mg/dL (7-17); Calcium 7.9 mg/dL (8.4-10.2); Carbon Dioxide 20 mmol/L (22-30); Chloride 109 mmol/L (98-107); Estimated CRCL calculation 56 ml/min; Estimated Glomerular Filt Rate > 60; Glucose 104 mg/dL (65-110); Potassium 4.9 mmol/L (3.4-5.0); Sodium 134 mmol/L (137-145)
--- NOTE | 2022-12-16 11:45 | PM.PNGS ---
Progress Note: A&P Assessment and Plan (1) Common bile duct leak: Code(s): K83.8 - Other specified diseases of biliary tract Status: Acute Assessment and Plan: JOHN drain has almost no output. Even T-tube had very little output yesterday although there is more bile in the T-tube this afternoon. Hopefully bile is draining with minimal or no leak into the duodenum. Will start clamping T-tube 2 hours out of 4. Explained to nursing. Keep JOHN drain in place in case this increases the leak. Making good progress from the standpoint point. (2) Cholelithiasis and acute cholecystitis with obstruction: Code(s): K80.01 - Calculus of gallbladder with acute cholecystitis with obstruction Status: Acute Assessment and Plan: Status post lap choly 12/04/2022 (3) Elevated protime: Code(s): R79.1 - Abnormal coagulation profile Status: Acute Assessment and Plan: Recheck protime, INR, PTT today. (4) Opioid dependence with current use: Code(s): F11.20 - Opioid dependence, uncomplicated Status: Chronic Assessment and Plan: Most likely mental status changes last week were due to patient taking opioids in excess. (5) COPD (chronic obstructive pulmonary disease): Qualifiers: COPD type: emphysema Emphysema type: unspecified Qualified Code(s): J43.9 - Emphysema, unspecified Code(s): J44.9 - Chronic obstructive pulmonary disease, unspecified Status: Chronic Assessment and Plan: Only on a couple of L of oxygen at this time. Subjective Subjective Date/Time Seen: 12/16/22 11:45 Post Op day: #10 Patient reports: feels better, pain is less, tolerating liquids well (Wants solid food), bowel movement and afebrile Review of Systems Review of Systems: All systems reviewed & are unremarkable except as noted in HPI and below (HPI and those items noted below) Constitutional: Constitutional: Denies chills and Denies fever(s) Cardiovascular: Cardiovascular: Denies chest pain, Denies diaphoresis, Denies dyspnea and Denies paroxysmal nocturnal dyspnea Respiratory: Respiratory: Denies chest congestion, Denies cough and Denies dyspnea Integumentary/Breasts: Skin/Breast: Denies lesions and Denies rash Exam Const: General: cooperative (In very good spirits today), comfortable, no acute distress, alert and awake; No confusion Orientation/consciousness: patient oriented x3 and No confusion GI: Inspection: non-distended, incision (Dry and healing well), scaphoid and other (Small amount bile in JOHN, bile noted in T-tube) GI Palp: Yes Soft to palpation, Yes Tenderness to palpation present (GI), No Guarding due to palpation present (GI) and No Rebound tenderness present Auscultation: normal bowel sounds Other: Only 30 cc per T-tube last 24 hours and nothing per JOHN drain last 24 hours as per the graphics intake and output. Neuro: General: patient oriented x3, no focal motor deficits and No confusion Extrem: General: no calf tenderness and no edema Psych: Affect: normal affect Insight: Good insight present (Psych) Judgement: Good judgement present (Psych) Objective Data Vital Signs Vital Signs: Vital Signs - 24 hr 12/15/22 12:00 12/15/22 12:00 12/15/22 12:00 Temperature 36.8 C Pulse Rate 86 80 Respiratory Rate 12 Blood Pressure 121/66 Pulse Oximetry 98 97 Oxygen Delivery Nasal Cannula Oxygen Flow Rate 4 Fraction of Inspired Oxygen 12/15/22 14:00 12/15/22 16:00 12/15/22 16:00 Temperature 36.9 C Pulse Rate 87 88 92 Respiratory Rate 20 Blood Pressure 134/78 Pulse Oximetry 96 Oxygen Delivery Oxygen Flow Rate Fraction of Inspired Oxygen 12/15/22 16:00 12/15/22 18:23 12/15/22 20:29 Temperature Pulse Rate 97 104 H Respiratory Rate Blood Pressure Pulse Oximetry 97 Oxygen Delivery Nasal Cannula Oxygen Flow Rate 4 Fraction of Inspired Oxygen 12/15/22 20:00 12/15/22 20:00
--- NOTE | 2022-12-16 12:05 | PCNFU ---
Nutrition Follow-Up Complete: Suboptimal po intake related to appetite as evidenced by pt report Goal:PO intake 50% of meals and supplements. Pt is progressing towards goal. Continue with same goal Pt current nutrition is Full liquids, Ensure Enlive TID w/ meals. Nutrition recommendation: Advance diet as tolerated Last recorded weight is 45.3 kg - decreased from 54kg Bowel Motility: +BM 12/16 Labs Reviewed: Hgb:8.8, HCT;27.5, Alb:2.8, NA:134, Cr:0.6 Meds Noted: Lovenox, protonix Skin: WNL Additional Notes: Pt on full liquids, tolerating but states she is ready for solid foods. Drinking Ensure as ordered. Advance diet as tolerated. Monitor intake, wt, labs. Follow up in 7 days.
[2022-12-16 12:53] LABS: INR 1.9
[2022-12-16 12:54] LABS: Partial Thromboplastin Time 39.6 SECONDS (22.3-36.8)
[2022-12-16 12:55] LABS: Lactic Acid Reflex 1.1 mmol/L (0.7-2.0)
[2022-12-16 13:37] LABS: Procalcitonin 0.1 ng/mL
[2022-12-16] MEDS: ACETAMINOPHEN 500 MG TABLET PO (20:11)
[2022-12-16] MEDS: CALCIUM CARBONATE (TUMS) 500 MG (200 MG ELEMENTAL) PO (21:31)
[2022-12-17] VITALS (20 sets, daily range): BP systolic 106–137; BP diastolic 60–80; PULSE 67–109; RESP 14–20; TEMP 36.2–36.9; O2SAT 90–100
[2022-12-17 04:49] LABS: Basophils Absolute Auto 0.1 K/mm3 (0.0-0.1); Basophils Percent Auto 0.8 % (0.2-1.2); Eosinophils Absolute Auto 0.5 K/mm3 (0-0.3); Eosinophils Percent Auto 5.4 % (0-4.4); Hematocrit 24.1 % (37.0-47.0); Hemoglobin 7.8 g/dL (12.0-15.0); Immature Granulocyte Absolute 0.03 K/mm3 (0.00-0.031); Immature Granulocyte Percent A 0.3 % (0-0.5); Lymphocytes Absolute Auto 2.46 K/mm3 (0.9-3.2); Lymphocytes Percent Auto 24.7 % (18.3-44.2); Mean Corpuscular HGB Conc 32.4 g/dl (32-36); Mean Corpuscular Hemoglobin 28.1 pg (26-34); Mean Corpuscular Volume 86.7 fl (80-100); Mean Platelet Volume 10.2 fl (7.4-10.4); Monocytes Absolute Auto 0.7 K/mm3 (0.1-0.6); Monocytes Percent Auto 7.2 % (2.6-8.5); Neutrophils Absolute Auto 6.1 K/mm3 (1.3-6.7); Neutrophils Percent Auto 61.6 % (45.5-73.1); Platelet Count Result 470 k/mm3 (150-375); Red Blood Count 2.78 M/mm3 (4.2-5.4); Red Cell Distribution Width 15.4 % (11.5-14.5)
[2022-12-17 05:23] LABS: Alanine Aminotransferase 13 U/L (6-35); Albumin Level 2.3 g/dL (3.5-5.1); Alkaline Phosphatase 89 U/L (38-126); Anion Gap 3 mmol/L (8-16); Aspartate Amino Transferase 17 U/L (14-36); Bilirubin,Total 0.2 mg/dL (0.2-1.3); Blood Urea Nitrogen 9 mg/dL (7-17); Calcium 7.5 mg/dL (8.4-10.2); Carbon Dioxide 22 mmol/L (22-30); Chloride 105 mmol/L (98-107); Estimated CRCL calculation 56 ml/min; Estimated Glomerular Filt Rate > 60; Glucose 103 mg/dL (65-110); Potassium 4.3 mmol/L (3.4-5.0); Sodium 130 mmol/L (137-145)
[2022-12-17] MEDS: ASPIRIN 81 MG ENTERIC TABLET PO (08:41)
[2022-12-17] MEDS: ATORVASTATIN 40 MG TABLET PO (08:42)
[2022-12-17] MEDS: FERROUS SULFATE 324 MG TABLET PO (08:42)
[2022-12-17] MEDS: METOPROLOL TARTRATE 50 MG TAB PO ×2 (08:43→20:30)
[2022-12-17] MEDS: PREGABALIN (*CRX) 50 MG CAPSULE 100 MG PO (08:44)
[2022-12-17] MEDS: PANTOPRAZOLE 40 MG TABLET PO (08:44)
[2022-12-17] MEDS: SERTRALINE HCL 50 MG TABLET 100 MG PO (08:44)
[2022-12-17] MEDS: DOXYCYCLINE 100 MG/NS 100 ML 100 MG/100 ML BAG IVPB ×2 (08:46→20:28)
--- NOTE | 2022-12-17 08:50 | PM.PNGS ---
Progress Note: A&P Assessment and Plan (1) Common bile duct leak: Code(s): K83.8 - Other specified diseases of biliary tract Status: Acute Assessment and Plan: No bile in JOHN drain. Tolerated T-tube clamped 2 hours out of 4. Will increase to 3 hours out of 4. If tolerates this again, will clamp continuously tomorrow, then obtain repeat T-tube cholangiogram on . Leak appears to be healed. Patient doing much better. (2) Cholelithiasis and acute cholecystitis with obstruction: Code(s): K80.01 - Calculus of gallbladder with acute cholecystitis with obstruction Status: Acute Assessment and Plan: Status post difficult laparoscopic cholecystectomy with bile duct injury 12/04/2022 (3) Opioid dependence with current use: Code(s): F11.20 - Opioid dependence, uncomplicated Status: Chronic Assessment and Plan: Seems to be on usual and adequate dose of narcotics as per her current condition as well as her heavy home use. Suspect her mental status changes at the end of last week were due to narcotic overuse. (4) Atrial fibrillation with RVR: Code(s): I48.91 - Unspecified atrial fibrillation Status: Acute Assessment and Plan: Remains on intermediate care unit with telemetry, transfer to med surge floor when okay with hospitalist. (5) Iron deficiency anemia: Qualifiers: Iron deficiency anemia type: unspecified iron deficiency Qualified Code(s): D50.9 - Iron deficiency anemia, unspecified Code(s): D50.9 - Iron deficiency anemia, unspecified Status: Chronic Assessment and Plan: Still anemic but no evidence of bleeding and H&H stable. (6) COPD (chronic obstructive pulmonary disease): Qualifiers: COPD type: emphysema Emphysema type: unspecified Qualified Code(s): J43.9 - Emphysema, unspecified Code(s): J44.9 - Chronic obstructive pulmonary disease, unspecified Status: Chronic Assessment and Plan: On oxygen and stable at present. Being treated for pneumonia with doxycycline and imipenem. Subjective Subjective Date/Time Seen: 12/17/22 08:50 Post Op day: #11 Patient reports: feels better, pain is less, tolerating a regular diet (Soft diet), voiding w/o difficulty, diarrhea (Due to contrast from upper GI on Friday) and afebrile Interval history: Tolerated T-tube being clamped 2 hours out of 4 very well. No nausea or abdominal pain. Review of Systems Review of Systems: All systems reviewed & are unremarkable except as noted in HPI and below (HPI and those items noted below) Constitutional: Constitutional: Denies chills and Denies fever(s) Cardiovascular: Cardiovascular: Denies chest pain, Denies diaphoresis, Denies dyspnea and Denies paroxysmal nocturnal dyspnea Respiratory: Respiratory: Denies chest congestion, Denies cough and Denies dyspnea Integumentary/Breasts: Skin/Breast: Denies lesions and Denies rash Exam Const: General: cooperative, comfortable, no acute distress, alert, awake, thin and underweight; No confusion Orientation/consciousness: patient oriented x3 and No confusion GI: Inspection: incision (Marina removed and Steri-Strips placed. Wound looks good) and other (No bile per JOHN drain, T-tube working well. C-clamp in place) GI Palp: Yes Soft to palpation, Yes Tenderness to palpation present (GI) (Minimal tenderness), No Guarding due to palpation present (GI) and No Rebound tenderness present Auscultation: normal bowel sounds Neuro: General: patient oriented x3, no focal motor deficits and No confusion Extrem: General: no calf tenderness and no edema Psych: Affect: normal affect Insight: Good insight present (Psych) Judgement: Good judgement present (Psych) Objective Data Vital Signs Vital Signs: Vital Signs - 24 hr 12/16/22 10:00 12/16/22 12:00 12/16/22 12:00 Temperature 37.0 C Pulse Rate 93 93 Respiratory Rate 16 Blood Pressure 128/77 Pulse Oxime
[2022-12-17] MEDS: oxyCODONE HCL (*CRX) 5 MG TAB IR 10 MG PO ×3 (08:52→20:30)
--- NOTE | 2022-12-17 09:36 | PM.IMPN ---
Progress Note: A&P Assessment and Plan (1) Sepsis: Qualifiers: Sepsis acute organ dysfunction status: without acute organ dysfunction Sepsis type: sepsis due to unspecified organism Qualified Code(s): A41.9 - Sepsis, unspecified organism Code(s): A41.9 - Sepsis, unspecified organism Status: Acute Assessment and Plan: Suspected cholecystitis at admission, started on zosyn, s/p cholecystectomy 12/04/22 12/13/22 WBC 16.2, lactic acid 0.7, HR 110s, RR>20, and requiring increased supplemental oxygen. CXR suggests pneumonia, possible aspiration. Stopped Zosyn. Changed to Primaxin 500 mg IV Q8 hours and Doxycycline 100 mg BID for MRSA coverage. Repeat blood cultures ordered. 12/14/22 WBC improving, down to 11, cont current management 12/15/22 WBC resolved, cont doxy + primaxin, repeat blood cultures NGTD 12/16/22 WBC worsening, cont abx for now, day 4 of primaxin + doxy 12/17/22 WBC back down to 10 today from 13 yesterday, day 5 of doxy + primaxin, will cont IV abx until leuk consistently trending down (2) Cholelithiasis: Qualifiers: Cholelithiasis location: gallbladder Code(s): K80.20 - Calculus of gallbladder without cholecystitis without obstruction Status: Chronic Assessment and Plan: 11/29/23 Started on zosyn 12/04/22?Cholecystectomy 12/05/22?ERCP with bile duct stent placement 12/06/22 Unable to transfer patient and she was taken into surgery for laparoscopic bile duct repair. 12/07/22?Placement of a T-tube and T-tube cholangiogram.?Patient's bile duct was found to be necrotic and treated in surgery.?2 JOHN drains placed. 12/11/22 POD 7 cholecystectomy and POD 5 following bile duct repair. Day 13 of Zosyn and continued per general surgery. She c/o increased abdominal pain and reports taking Oxycontin 10 mg PO BID plus oxycodone IR 10 mg in the morning and evening with oxycontin dose, as well as twice during the day. changed oral medications to reflect this. IV morphine for breakthrough pain.? 12/12/22 JOHN drain left abdomen to be discontinued per surgery. Repeat CT abd/pelvis to be obtained.? 12/13/22 Increased output from T-drain instead of JOHN. Per surgery, appears improving and CT abd/pelvis from 12/12/22 does not show abscess, intra-abdominal air or fluid. Of note, stomach is distended with prominent fluid noted in the stomach. Patient made NPO and upper GI series ordered per surgery. 12/14/22 Stable, UGI pending 12/15/22 Still awaiting UGI 12/16/22 UGI WNL, small hiatal hernia noted, ADAT, appreciate gen surgery consultation 12/17/22 Tolerating regular diet without issue (3) COPD (chronic obstructive pulmonary disease): Qualifiers: COPD type: emphysema Emphysema type: unspecified Qualified Code(s): J43.9 - Emphysema, unspecified Code(s): J44.9 - Chronic obstructive pulmonary disease, unspecified Status: Chronic Assessment and Plan: 12/13/22 Repeat chest x-ray possible aspiration pneumonia. ABG shows hypoxemia. No hypercapnia. Push incentive spirometry PRN nebulizers Continue chronic oxygen. Patient refusing to use Incruse inhaler Consult pulmonology for assistance and appreciate recommendations. CTA chest suggests suggests severe emphysema, no PE and dependent airspace opacities, likely atelectasis. 12/14/22 Hypoxia resolving, worsening thought to be 2/2 agitation + R>L shunting d/t underlying PFO, keep patient calm and cont current management 12/15/22 Stable, cont to wean O2 as tolerated, appreciate pulm consult, now signed off 12/16/22 96% on 4L, cont to wean as tolerated 12/17/22 weaned to 2L nc 98%, will continue to wean, may need home O2 eval if unable to completely wean (4) Acute metabolic encephalopathy: Code(s): G93.41 - Metabolic encephalopathy Status: Acute Assessment and Plan: Likely secondary to acute infection and hypoxia with suspected underlying chronic hypoxia s/t severe COPD at baseline, was supposed to be on 2-3L at b
[2022-12-17 11:51] LABS: Appearance Urine Clear (Clear); Bilirubin Urine Negative (Negative); Blood Urine Negative (Negative); Color Urine Light Yellow (Yellow); Glucose Urine UA Negative (Negative); Ketones Urine Negative (Negative); Leukocyte Esterase Ur Negative LEU/UL (NEGATIVE); Nitrate Urine Negative (Negative); Protein Urine Negative (Negative); Specific Grav Ur 1.015 (1.001-1.035); Urobilinogen Urine 0.2 mg/dL (<2.0); pH Urine 5.5 (5.0-9.0)
[2022-12-17 12:13] LABS: Add Urine Microscopic? NO
--- NOTE | 2022-12-17 13:04 | PCPTNOTE ---
Attempted to see patient for PT, however OT was working with patient.
[2022-12-17] MEDS: BETAMETHASONE/CLOTRIMAZOLE CR 15 GM TUBE 1 APPLIC TOPICAL (20:29)
[2022-12-17] MEDS: HYDROCORTISONE 1% 30 GM CREAM 1 APPLIC TOPICAL (20:31)
[2022-12-18] VITALS (15 sets, daily range): BP systolic 109–131; BP diastolic 47–84; PULSE 81–106; RESP 16–18; TEMP 36.6–36.9; O2SAT 88–97
[2022-12-18 04:38] LABS: Basophils Absolute Auto 0.1 K/mm3 (0.0-0.1); Basophils Percent Auto 0.7 % (0.2-1.2); Eosinophils Absolute Auto 0.7 K/mm3 (0-0.3); Eosinophils Percent Auto 6.8 % (0-4.4); Immature Granulocyte Absolute 0.03 K/mm3 (0.00-0.031); Immature Granulocyte Percent A 0.3 % (0-0.5); Mean Corpuscular Hemoglobin 27.7 pg (26-34); Mean Corpuscular Volume 86.5 fl (80-100); Mean Platelet Volume 10.7 fl (7.4-10.4); Monocytes Absolute Auto 0.8 K/mm3 (0.1-0.6); Monocytes Percent Auto 7.1 % (2.6-8.5); Neutrophils Absolute Auto 6.5 K/mm3 (1.3-6.7); Neutrophils Percent Auto 60.1 % (45.5-73.1); Platelet Count Result 514 k/mm3 (150-375); Red Blood Count 2.89 M/mm3 (4.2-5.4); Red Cell Distribution Width 15.3 % (11.5-14.5); White Blood Count 10.8 K/mm3 (4.5-10.0)
[2022-12-18 04:59] LABS: Alanine Aminotransferase 13 U/L (6-35); Albumin Level 2.4 g/dL (3.5-5.1); Alkaline Phosphatase 92 U/L (38-126); Anion Gap 2 mmol/L (8-16); Aspartate Amino Transferase 22 U/L (14-36); Bilirubin,Total 0.2 mg/dL (0.2-1.3); Blood Urea Nitrogen 12 mg/dL (7-17); Calcium 7.5 mg/dL (8.4-10.2); Carbon Dioxide 25 mmol/L (22-30); Chloride 103 mmol/L (98-107); Estimated CRCL calculation 49 ml/min; Estimated Glomerular Filt Rate > 60; Glucose 91 mg/dL (65-110); Potassium 4.2 mmol/L (3.4-5.0); Sodium 130 mmol/L (137-145)
[2022-12-18] MEDS: KCL 40 MEQ/D5/0.9% SOD CHL 1,000 ML 100 ML IV CONT (05:38)
[2022-12-18] MEDS: DOXYCYCLINE 100 MG/NS 100 ML 100 MG/100 ML BAG IVPB ×2 (08:22→20:10)
[2022-12-18] MEDS: SERTRALINE HCL 50 MG TABLET 100 MG PO (08:22)
[2022-12-18] MEDS: PREGABALIN (*CRX) 50 MG CAPSULE 100 MG PO (08:22)
[2022-12-18] MEDS: ATORVASTATIN 40 MG TABLET PO (08:22)
[2022-12-18] MEDS: METOPROLOL TARTRATE 50 MG TAB PO ×2 (08:22→20:14)
[2022-12-18] MEDS: PANTOPRAZOLE 40 MG TABLET PO (08:22)
[2022-12-18] MEDS: FERROUS SULFATE 324 MG TABLET PO (08:22)
[2022-12-18] MEDS: BETAMETHASONE/CLOTRIMAZOLE CR 15 GM TUBE 1 APPLIC TOPICAL ×2 (08:23→20:15)
[2022-12-18] MEDS: ASPIRIN 81 MG ENTERIC TABLET PO (08:23)
[2022-12-18] MEDS: HYDROCORTISONE 1% 30 GM CREAM 1 APPLIC TOPICAL (08:23)
[2022-12-18] MEDS: oxyCODONE HCL (*CRX) 5 MG TAB IR 10 MG PO ×3 (08:26→20:19)
--- NOTE | 2022-12-18 10:30 | PM.IMPN ---
Progress Note: A&P Assessment and Plan (1) Sepsis: Qualifiers: Sepsis acute organ dysfunction status: without acute organ dysfunction Sepsis type: sepsis due to unspecified organism Qualified Code(s): A41.9 - Sepsis, unspecified organism Code(s): A41.9 - Sepsis, unspecified organism Status: Acute Assessment and Plan: Suspected cholecystitis at admission, started on zosyn, s/p cholecystectomy 12/04/22 12/13/22 WBC 16.2, lactic acid 0.7, HR 110s, RR>20, and requiring increased supplemental oxygen. CXR suggests pneumonia, possible aspiration. Stopped Zosyn. Changed to Primaxin 500 mg IV Q8 hours and Doxycycline 100 mg BID for MRSA coverage. Repeat blood cultures ordered. 12/14/22 WBC improving, down to 11, cont current management 12/15/22 WBC resolved, cont doxy + primaxin, repeat blood cultures NGTD 12/16/22 WBC worsening, cont abx for now, day 4 of primaxin + doxy 12/17/22 WBC back down to 10 today from 13 yesterday, day 5 of doxy + primaxin, will cont IV abx until leuk consistently trending down 12/18 - WBC 11K today. Remains on Primaxin and Doxycycline Day 6. Contineu to complete a 7 days course. (2) Cholelithiasis: Qualifiers: Cholelithiasis location: gallbladder Code(s): K80.20 - Calculus of gallbladder without cholecystitis without obstruction Status: Chronic Assessment and Plan: 11/29/23 Started on zosyn 12/04/22?Cholecystectomy 12/05/22?ERCP with bile duct stent placement 12/06/22 Unable to transfer patient and she was taken into surgery for laparoscopic bile duct repair. 12/07/22?Placement of a T-tube and T-tube cholangiogram.?Patient's bile duct was found to be necrotic and treated in surgery.?2 JOHN drains placed. 12/11/22 POD 7 cholecystectomy and POD 5 following bile duct repair. Day 13 of Zosyn and continued per general surgery. She c/o increased abdominal pain and reports taking Oxycontin 10 mg PO BID plus oxycodone IR 10 mg in the morning and evening with oxycontin dose, as well as twice during the day. changed oral medications to reflect this. IV morphine for breakthrough pain.? 12/12/22 JOHN drain left abdomen to be discontinued per surgery. Repeat CT abd/pelvis to be obtained.? 12/13/22 Increased output from T-drain instead of JOHN. Per surgery, appears improving and CT abd/pelvis from 12/12/22 does not show abscess, intra-abdominal air or fluid. Of note, stomach is distended with prominent fluid noted in the stomach. Patient made NPO and upper GI series ordered per surgery. 12/14/22 Stable, UGI pending 12/15/22 Still awaiting UGI 12/16/22 UGI WNL, small hiatal hernia noted, ADAT, appreciate gen surgery consultation 12/17/22 Tolerating regular diet without issue 12/18 -tolerate oral diet. Tolerating having biliary drain clamped. LFTs remain normal. Stop IV fluids (3) COPD (chronic obstructive pulmonary disease): Qualifiers: COPD type: emphysema Emphysema type: unspecified Qualified Code(s): J43.9 - Emphysema, unspecified Code(s): J44.9 - Chronic obstructive pulmonary disease, unspecified Status: Chronic Assessment and Plan: 12/13/22 Repeat chest x-ray possible aspiration pneumonia. ABG shows hypoxemia. No hypercapnia. Push incentive spirometry PRN nebulizers Continue chronic oxygen. Patient refusing to use Incruse inhaler Consult pulmonology for assistance and appreciate recommendations. CTA chest suggests suggests severe emphysema, no PE and dependent airspace opacities, likely atelectasis. 12/14/22 Hypoxia resolving, worsening thought to be 2/2 agitation + R>L shunting d/t underlying PFO, keep patient calm and cont current management 12/15/22 Stable, cont to wean O2 as tolerated, appreciate pulm consult, now signed off 12/16/22 96% on 4L, cont to wean as tolerated 12/17/22 weaned to 2L nc 98%, will continue to wean, may need home O2 eval if unable to completely wean 12/18 -patient was found to require oxygen back on August 2022 was sent ho
--- NOTE | 2022-12-18 11:39 | PM.PNGS ---
Progress Note: A&P Assessment and Plan (1) Common bile duct leak: Code(s): K83.8 - Other specified diseases of biliary tract Status: Acute Assessment and Plan: Bile duct repair over T-tube 12/06/2022. No bile in JOHN drain again today. Output is minimal. Will clamp T-tube continuously and get cholangiogram tomorrow morning. Possibly DC JOHN drain tomorrow if cholangiogram looks okay and output remains 0. (2) Cholelithiasis and acute cholecystitis with obstruction: Code(s): K80.01 - Calculus of gallbladder with acute cholecystitis with obstruction Status: Acute Assessment and Plan: Status post lap choly 12/04/2022 (3) Elevated protime: Code(s): R79.1 - Abnormal coagulation profile Status: Acute Assessment and Plan: Etiology unclear. Will recheck again tomorrow. (4) COPD (chronic obstructive pulmonary disease): Qualifiers: COPD type: emphysema Emphysema type: unspecified Qualified Code(s): J43.9 - Emphysema, unspecified Code(s): J44.9 - Chronic obstructive pulmonary disease, unspecified Status: Chronic Assessment and Plan: Stable on minimal oxygen (5) Opioid dependence with current use: Code(s): F11.20 - Opioid dependence, uncomplicated Status: Chronic Assessment and Plan: Comfortable at present. (6) Ischemic rest pain of lower extremity: Code(s): M79.606 - Pain in leg, unspecified; I99.8 - Other disorder of circulatory system Status: Chronic Assessment and Plan: No complaints of pain at this time. Left leg particularly has severe ischemia. Narcotics may be masking this. Subjective Subjective Date/Time Seen: 12/18/22 11:39 Post Op day: #12 Patient reports: no new complaints (Wants to go home), pain is less, tolerating a regular diet, bowel movement, shortness of breath (Comfortable on 1 L oxygen and often is off oxygen) and afebrile Review of Systems Review of Systems: All systems reviewed & are unremarkable except as noted in HPI and below (HPI and those items noted below) Constitutional: Constitutional: Denies chills and Denies fever(s) Cardiovascular: Cardiovascular: Denies chest pain, Denies diaphoresis, Denies dyspnea and Denies paroxysmal nocturnal dyspnea Respiratory: Respiratory: Denies chest congestion, Denies cough and Denies dyspnea Integumentary/Breasts: Skin/Breast: Denies lesions and Denies rash Exam Const: General: cooperative, comfortable, no acute distress, alert, awake, thin and underweight; No confusion Nutritional Appearance: underweight Orientation/consciousness: patient oriented x3 and No confusion GI: Inspection: incision (Healing well, Steri-Strips intact), scaphoid and other (Minimal JOHN output with no bile, T-tube has small amount of bile in bag) GI Palp: Yes Soft to palpation, Yes Tenderness to palpation present (GI), No Guarding due to palpation present (GI) and No Rebound tenderness present Auscultation: normal bowel sounds Other: No JOHN output yesterday. T tube output decreased with clamping 3 hours out of 4. Neuro: General: patient oriented x3, no focal motor deficits and No confusion Extrem: General: no calf tenderness and no edema Psych: Affect: normal affect Insight: Good insight present (Psych) Judgement: Good judgement present (Psych) Objective Data Vital Signs Vital Signs: Vital Signs - 24 hr 12/17/22 11:41 12/17/22 12:00 12/17/22 14:00 Temperature 36.2 C L Pulse Rate 85 88 93 Respiratory Rate 20 Blood Pressure 106/64 Pulse Oximetry 96 Oxygen Delivery Oxygen Flow Rate 12/17/22 16:22 12/17/22 16:00 12/17/22 12:00 Temperature 36.9 C Pulse Rate 107 H 87 Respiratory Rate 18 Blood Pressure 137/80 Pulse Oximetry 95 96 Oxygen Delivery Nasal Cannula Oxygen Flow Rate 1 12/17/22 16:00 12/17/22 18:00 12/17/22 20:30 Temperature Pulse Rate 98 108 H Respiratory Rate Blood Pressure Pulse Oxi
[2022-12-19] VITALS (16 sets, daily range): BP systolic 109–127; BP diastolic 58–73; PULSE 71–97; RESP 12–20; TEMP 36.4–37.1; O2SAT 81–100
[2022-12-19 04:16] LABS: Basophils Absolute Auto 0.1 K/mm3 (0.0-0.1); Basophils Percent Auto 1.2 % (0.2-1.2); Eosinophils Absolute Auto 0.6 K/mm3 (0-0.3); Eosinophils Percent Auto 5.9 % (0-4.4); Immature Granulocyte Absolute 0.02 K/mm3 (0.00-0.031); Immature Granulocyte Percent A 0.2 % (0-0.5); Lymphocytes Absolute Auto 2.91 K/mm3 (0.9-3.2); Lymphocytes Percent Auto 29.2 % (18.3-44.2); Mean Corpuscular Hemoglobin 27.6 pg (26-34); Mean Corpuscular Volume 86.2 fl (80-100); Mean Platelet Volume 10.8 fl (7.4-10.4); Monocytes Absolute Auto 0.8 K/mm3 (0.1-0.6); Monocytes Percent Auto 7.5 % (2.6-8.5); Neutrophils Absolute Auto 5.6 K/mm3 (1.3-6.7); Platelet Count Result 485 k/mm3 (150-375); Red Cell Distribution Width 15.7 % (11.5-14.5)
[2022-12-19 04:24] LABS: Alanine Aminotransferase 12 U/L (6-35); Albumin Level 2.4 g/dL (3.5-5.1); Alkaline Phosphatase 93 U/L (38-126); Anion Gap 4 mmol/L (8-16); Aspartate Amino Transferase 17 U/L (14-36); Bilirubin,Total 0.1 mg/dL (0.2-1.3); Blood Urea Nitrogen 19 mg/dL (7-17); Calcium 7.5 mg/dL (8.4-10.2); Carbon Dioxide 24 mmol/L (22-30); Chloride 105 mmol/L (98-107); Estimated CRCL calculation 39 ml/min; Estimated Glomerular Filt Rate > 60; Glucose 89 mg/dL (65-110); Magnesium 1.5 mg/dL (1.6-2.3); Phosphorus 4.1 mg/dL (2.5-4.5); Sodium 133 mmol/L (137-145)
[2022-12-19 04:25] LABS: INR 1.3; Prothrombin Time 16.1 Seconds (11.1-14.7)
[2022-12-19 04:26] LABS: Partial Thromboplastin Time 35.7 SECONDS (22.3-36.8)
--- NOTE | 2022-12-19 08:15 | PM.PNGS ---
Progress Note: A&P Assessment and Plan (1) Common bile duct leak: Code(s): K83.8 - Other specified diseases of biliary tract Status: Acute Assessment and Plan: Tolerated T-tube clamping without difficulty. No bile in JOHN drain. T-Tube cholangiogram today. If cholangiogram okay, will DC JOHN drain tomorrow. Patient can go home with T-tube clamped tomorrow and follow up in my office. She is doing much better. Eating better as well. (2) Cholelithiasis and acute cholecystitis with obstruction: Code(s): K80.01 - Calculus of gallbladder with acute cholecystitis with obstruction Status: Resolved (3) Elevated protime: Code(s): R79.1 - Abnormal coagulation profile Status: Resolved Assessment and Plan: Coags nearly normal today. (4) Opioid dependence with current use: Code(s): F11.20 - Opioid dependence, uncomplicated Status: Chronic Assessment and Plan: Comfortable on current regimen (5) COPD (chronic obstructive pulmonary disease): Qualifiers: COPD type: emphysema Emphysema type: unspecified Qualified Code(s): J43.9 - Emphysema, unspecified Code(s): J44.9 - Chronic obstructive pulmonary disease, unspecified Status: Chronic Assessment and Plan: Stable with good saturations noted in vital signs. (6) Tachycardia: Code(s): R00.0 - Tachycardia, unspecified Status: Resolved (7) Malnutrition: Code(s): E46 - Unspecified protein-calorie malnutrition Status: Acute Assessment and Plan: Eating better. Taking supplements with regular diet. Improving Subjective Subjective Date/Time Seen: 12/19/22 08:15 Post Op day: #13 Patient reports: no new complaints, feels better, pain is less, tolerating a regular diet and afebrile Exam Const: General: comfortable and no acute distress; No confusion Orientation/consciousness: patient oriented x3 and No confusion GI: Inspection: incision (Wound healing well, Steri-Strips in placed.) and other (T-tube clamped, small amount serosanguineous in JOHN.) GI Palp: Yes Soft to palpation, No Guarding due to palpation present (GI) and No Rebound tenderness present Auscultation: normal bowel sounds Neuro: General: patient oriented x3, no focal motor deficits and No confusion Extrem: General: no calf tenderness and no edema Psych: Affect: normal affect Insight: Good insight present (Psych) Judgement: Good judgement present (Psych) Objective Data Vital Signs Vital Signs: Vital Signs - 24 hr 12/18/22 08:22 12/18/22 12:00 12/18/22 12:00 Temperature 36.6 C Pulse Rate 106 H 100 Respiratory Rate 18 Blood Pressure 109/47 L Pulse Oximetry 94 Oxygen Delivery Room Air Oxygen Flow Rate 12/18/22 10:00 12/18/22 12:00 12/18/22 14:00 Temperature Pulse Rate 102 H 98 95 Respiratory Rate Blood Pressure Pulse Oximetry Oxygen Delivery Oxygen Flow Rate 12/18/22 16:00 12/18/22 18:00 12/18/22 16:00 Temperature 36.9 C Pulse Rate 97 101 H 102 H Respiratory Rate 16 Blood Pressure 131/74 Pulse Oximetry 94 Oxygen Delivery Oxygen Flow Rate 12/18/22 16:00 12/18/22 20:14 12/18/22 20:00 Temperature 36.6 C Pulse Rate 93 83 Respiratory Rate 16 Blood Pressure 117/63 Pulse Oximetry 97 Oxygen Delivery Room Air Oxygen Flow Rate 12/18/22 20:00 12/18/22 22:00 12/18/22 20:00 Temperature Pulse Rate 95 88 Respiratory Rate Blood Pressure Pulse Oximetry 88 L Oxygen Delivery Nasal Cannula Oxygen Flow Rate 1 12/18/22 23:47 12/19/22 00:00 12/19/22 00:00 Temperature 36.6 C Pulse Rate 81 80 Respiratory Rate 16 Blood Pressure 116/65 Pulse Oximetry 96 98 Oxygen Delivery Nasal Cannula Oxygen Flow Rate 2 12/19/22 02:00 12/19/22 04:00 12/19/22 04:00 Temperature Pulse Rate 89 71 Respiratory Rate Blood Pressure Pulse Oximetry 94 Oxygen Delivery Nasal Cannu
[2022-12-19] MEDS: MAGNESIUM SULF 2 GM/WATER 50ML 2 GM/50 ML BAG IVPB (08:17)
[2022-12-19] MEDS: FERROUS SULFATE 324 MG TABLET PO (08:18)
[2022-12-19] MEDS: BETAMETHASONE/CLOTRIMAZOLE CR 15 GM TUBE 1 APPLIC TOPICAL ×2 (08:18→20:30)
[2022-12-19] MEDS: ATORVASTATIN 40 MG TABLET PO (08:18)
[2022-12-19] MEDS: METOPROLOL TARTRATE 50 MG TAB PO ×2 (08:20→20:28)
[2022-12-19] MEDS: SERTRALINE HCL 50 MG TABLET 100 MG PO (08:20)
[2022-12-19] MEDS: PANTOPRAZOLE 40 MG TABLET PO (08:20)
[2022-12-19] MEDS: PREGABALIN (*CRX) 50 MG CAPSULE 100 MG PO (08:20)
[2022-12-19] MEDS: DOXYCYCLINE 100 MG/NS 100 ML 100 MG/100 ML BAG IVPB ×2 (08:28→20:27)
[2022-12-19] MEDS: HYDROCORTISONE 1% 30 GM CREAM 1 APPLIC TOPICAL (08:28)
[2022-12-19] MEDS: ASPIRIN 81 MG ENTERIC TABLET PO (08:28)
[2022-12-19] MEDS: oxyCODONE HCL (*CRX) 5 MG TAB IR 10 MG PO ×3 (08:28→20:24)
--- NOTE | 2022-12-19 10:47 | PM.IMPN ---
Progress Note: A&P Assessment and Plan (1) Sepsis: Qualifiers: Sepsis acute organ dysfunction status: without acute organ dysfunction Sepsis type: sepsis due to unspecified organism Qualified Code(s): A41.9 - Sepsis, unspecified organism Code(s): A41.9 - Sepsis, unspecified organism Status: Acute Assessment and Plan: Suspected cholecystitis at admission, started on zosyn, s/p cholecystectomy 12/04/22 12/13/22 WBC 16.2, lactic acid 0.7, HR 110s, RR>20, and requiring increased supplemental oxygen. CXR suggests pneumonia, possible aspiration. Stopped Zosyn. Changed to Primaxin 500 mg IV Q8 hours and Doxycycline 100 mg BID for MRSA coverage. Repeat blood cultures ordered. 12/14/22 WBC improving, down to 11, cont current management 12/15/22 WBC resolved, cont doxy + primaxin, repeat blood cultures NGTD 12/16/22 WBC worsening, cont abx for now, day 4 of primaxin + doxy 12/17/22 WBC back down to 10 today from 13 yesterday, day 5 of doxy + primaxin, will cont IV abx until leuk consistently trending down 12/18 - WBC 11K today. Remains on Primaxin and Doxycycline Day 6. Contineu to complete a 7 days course. 12/19 - white count down to 10K now. Will continue IV antibiotics to complete 7 day course. Home tomorrow. (2) Cholelithiasis: Qualifiers: Cholelithiasis location: gallbladder Code(s): K80.20 - Calculus of gallbladder without cholecystitis without obstruction Status: Chronic Assessment and Plan: 11/29/23 Started on zosyn 12/04/22?Cholecystectomy 12/05/22?ERCP with bile duct stent placement 12/06/22 Unable to transfer patient and she was taken into surgery for laparoscopic bile duct repair. 12/07/22?Placement of a T-tube and T-tube cholangiogram.?Patient's bile duct was found to be necrotic and treated in surgery.?2 JHON drains placed. 12/11/22 POD 7 cholecystectomy and POD 5 following bile duct repair. Day 13 of Zosyn and continued per general surgery. She c/o increased abdominal pain and reports taking Oxycontin 10 mg PO BID plus oxycodone IR 10 mg in the morning and evening with oxycontin dose, as well as twice during the day. changed oral medications to reflect this. IV morphine for breakthrough pain.? 12/12/22 JOHN drain left abdomen to be discontinued per surgery. Repeat CT abd/pelvis to be obtained.? 12/13/22 Increased output from T-drain instead of JOHN. Per surgery, appears improving and CT abd/pelvis from 12/12/22 does not show abscess, intra-abdominal air or fluid. Of note, stomach is distended with prominent fluid noted in the stomach. Patient made NPO and upper GI series ordered per surgery. 12/14/22 Stable, UGI pending 12/15/22 Still awaiting UGI 12/16/22 UGI WNL, small hiatal hernia noted, ADAT, appreciate gen surgery consultation 12/17/22 Tolerating regular diet without issue 12/18 -tolerate oral diet. Tolerating having biliary drain clamped. LFTs remain normal. Stop IV fluids 12/19 - Patient continues to do well. Will follow up on the cholangiogram report. (3) COPD (chronic obstructive pulmonary disease): Qualifiers: COPD type: emphysema Emphysema type: unspecified Qualified Code(s): J43.9 - Emphysema, unspecified Code(s): J44.9 - Chronic obstructive pulmonary disease, unspecified Status: Chronic Assessment and Plan: 12/13/22 Repeat chest x-ray possible aspiration pneumonia. ABG shows hypoxemia. No hypercapnia. Push incentive spirometry PRN nebulizers Continue chronic oxygen. Patient refusing to use Incruse inhaler Consult pulmonology for assistance and appreciate recommendations. CTA chest suggests suggests severe emphysema, no PE and dependent airspace opacities, likely atelectasis. 12/14/22 Hypoxia resolving, worsening thought to be 2/2 agitation + R>L shunting d/t underlying PFO, keep patient calm and cont current management 12/15/22 Stable, cont to wean O2 as tolerated, appreciate pulm consult, now signed off 12/16/22 96% on 4L, cont to wean a
--- NOTE | 2022-12-19 13:32 | HOMEO2EVAL ---
Evaluation was performed at [facility] Home Oxygen Evaluation RC: Home Oxygen (O2) Evaluation Start: 12/19/22 07:42 Freq: ONCE Status: Active Protocol: RPE Activity Type Activity Date Activity User E-sign Co-sign Detail Recorded Client Recorded Date Recorded By Document 12/19/22 13:00 MICHELE [email or web address] 12/19/22 13:31 MICHELE Document 12/19/22 13:05 MICHELE [email or web address] 12/19/22 13:31 MICHELE Document 12/19/22 13:07 MICHELE [email or web address] 12/19/22 13:31 [facility] Document 12/19/22 13:15 MICHELE [email or web address] 12/19/22 13:31 MICHELE 12/19/22 12/19/22 12/19/22 13:00 13:05 13:07 Home O2 Evaluation [Oxygen] -Test Phase Resting Exercise Exercise -Oxygen Delivery Room Air Room Air Nasal Cannula -Oxygen Flow Rate (L/min) 2 [Pulse Oximetry] -Pulse Oximetry (90-100 %) 98 81 L 92 [Comments] -Home Oxygen Evaluation Comments Pt requires 2 with activity [Charges] -Treatment Charges O2 Evaluation - Inpatient 12/19/22 13:15 Home O2 Evaluation [Oxygen] -Test Phase Resting -Oxygen Delivery Room Air -Oxygen Flow Rate (L/min) [Pulse Oximetry] -Pulse Oximetry (90-100 %) 96 [Comments] -Home Oxygen Evaluation Comments [Charges] -Treatment Charges
--- NOTE | 2022-12-19 22:10 | PC.NURSE ---
This patient, Chantal Grove, was transferred to [room 349 ] on 12/19/22 at 2210. Personal belongings sent with patient. Report given to [LAVERNE Quinn ]. Appropriate documentation sent with patient.
[2022-12-20] VITALS: BP 130/73; PULSE 88; RESP 22; TEMP 36.6; O2SAT 91
[2022-12-20 05:52] LABS: Basophils Absolute Auto 0.1 K/mm3 (0.0-0.1); Basophils Percent Auto 1.1 % (0.2-1.2); Eosinophils Absolute Auto 0.4 K/mm3 (0-0.3); Eosinophils Percent Auto 4.1 % (0-4.4); Hemoglobin 8.2 g/dL (12.0-15.0); Immature Granulocyte Absolute 0.04 K/mm3 (0.00-0.031); Immature Granulocyte Percent A 0.4 % (0-0.5); Lymphocytes Absolute Auto 2.27 K/mm3 (0.9-3.2); Lymphocytes Percent Auto 21.7 % (18.3-44.2); Mean Corpuscular HGB Conc 31.5 g/dl (32-36); Mean Corpuscular Hemoglobin 27.2 pg (26-34); Mean Corpuscular Volume 86.4 fl (80-100); Mean Platelet Volume 10.2 fl (7.4-10.4); Monocytes Absolute Auto 0.8 K/mm3 (0.1-0.6); Monocytes Percent Auto 7.2 % (2.6-8.5); Neutrophils Absolute Auto 6.9 K/mm3 (1.3-6.7); Neutrophils Percent Auto 65.5 % (45.5-73.1); Platelet Count Result 486 k/mm3 (150-375); Red Blood Count 3.01 M/mm3 (4.2-5.4); Red Cell Distribution Width 15.7 % (11.5-14.5); White Blood Count 10.5 K/mm3 (4.5-10.0)
[2022-12-20 06:07] LABS: Alanine Aminotransferase 13 U/L (6-35); Albumin Level 2.5 g/dL (3.5-5.1); Alkaline Phosphatase 99 U/L (38-126); Anion Gap 3 mmol/L (8-16); Aspartate Amino Transferase 19 U/L (14-36); Bilirubin,Total 0.1 mg/dL (0.2-1.3); Blood Urea Nitrogen 20 mg/dL (7-17); Calcium 7.7 mg/dL (8.4-10.2); Carbon Dioxide 25 mmol/L (22-30); Chloride 103 mmol/L (98-107); Estimated CRCL calculation 49 ml/min; Estimated Glomerular Filt Rate > 60; Glucose 99 mg/dL (65-110); Magnesium 1.7 mg/dL (1.6-2.3); Potassium 4.1 mmol/L (3.4-5.0); Sodium 131 mmol/L (137-145)
[2022-12-20 06:20] VITALS: O2SAT 93
[2022-12-20] MEDS: oxyCODONE HCL (*CRX) 5 MG TAB IR 10 MG PO (08:27)
[2022-12-20] MEDS: PREGABALIN (*CRX) 50 MG CAPSULE 100 MG PO (08:28)
[2022-12-20 08:29] VITALS: PULSE 87
[2022-12-20] MEDS: METOPROLOL TARTRATE 50 MG TAB PO (08:29)
[2022-12-20] MEDS: PANTOPRAZOLE 40 MG TABLET PO (08:29)
[2022-12-20] MEDS: FERROUS SULFATE 324 MG TABLET PO (08:32)
[2022-12-20] MEDS: SERTRALINE HCL 50 MG TABLET 100 MG PO (08:32)
[2022-12-20] MEDS: ATORVASTATIN 40 MG TABLET PO (08:33)
[2022-12-20] MEDS: HYDROCORTISONE 1% 30 GM CREAM 1 APPLIC TOPICAL (08:34)
[2022-12-20] MEDS: BETAMETHASONE/CLOTRIMAZOLE CR 15 GM TUBE 1 APPLIC TOPICAL (08:35)
[2022-12-20] MEDS: ASPIRIN 81 MG ENTERIC TABLET PO (08:35)
[2022-12-20] MEDS: DOXYCYCLINE 100 MG/NS 100 ML 100 MG/100 ML BAG IVPB (08:37)
--- NOTE | 2022-12-20 09:27 | PM.DS ---
DS: Admitting Diagnosis Discharge Date 12/20/22 Admitting Diagnosis Altered mental status DS: Discharge Diagnosis Discharge Diagnosis (1) Sepsis: Qualifiers: Sepsis acute organ dysfunction status: without acute organ dysfunction Sepsis type: sepsis due to unspecified organism Qualified Code(s): A41.9 - Sepsis, unspecified organism Code(s): A41.9 - Sepsis, unspecified organism Status: Acute (2) Cholelithiasis: Qualifiers: Cholelithiasis location: gallbladder Code(s): K80.20 - Calculus of gallbladder without cholecystitis without obstruction Status: Chronic (3) COPD (chronic obstructive pulmonary disease): Qualifiers: COPD type: emphysema Emphysema type: unspecified Qualified Code(s): J43.9 - Emphysema, unspecified Code(s): J44.9 - Chronic obstructive pulmonary disease, unspecified Status: Chronic (4) Iron deficiency anemia: Qualifiers: Iron deficiency anemia type: unspecified iron deficiency Qualified Code(s): D50.9 - Iron deficiency anemia, unspecified Code(s): D50.9 - Iron deficiency anemia, unspecified Status: Chronic (5) Atrial fibrillation with RVR: Code(s): I48.91 - Unspecified atrial fibrillation Status: Acute (6) Chronic respiratory failure: Qualifiers: Respiratory failure complication: hypoxia Qualified Code(s): J96.11 - Chronic respiratory failure with hypoxia Code(s): J96.10 - Chronic respiratory failure, unspecified whether with hypoxia or hypercapnia Status: Chronic (7) PFO (patent foramen ovale): Code(s): Q21.12 - Patent foramen ovale Status: Chronic (8) Neuropathy: Code(s): G62.9 - Polyneuropathy, unspecified Status: Chronic (9) Hypertension: Qualifiers: Hypertension type: primary hypertension Qualified Code(s): I10 - Essential (primary) hypertension Code(s): I10 - Essential (primary) hypertension Status: Chronic (10) Depression: Code(s): F32.A - Depression, unspecified Status: Chronic (11) Peripheral artery disease: Code(s): I73.9 - Peripheral vascular disease, unspecified Status: Chronic (12) Ischemic rest pain of lower extremity: Code(s): M79.606 - Pain in leg, unspecified; I99.8 - Other disorder of circulatory system Status: Chronic (13) Acute metabolic encephalopathy: Code(s): G93.41 - Metabolic encephalopathy Status: Acute DS: Summary Hospital Course Reason for hospitalization: 67yo female with HTN, depression and chronic back pain here for altered mental status and found to have sepsis from acute cholecystitis.??Please see H&P for details Hospital Course: Patient presented with altered mental status and was found to have sepsis felt related to acute cholecystitis. CT scan showed mildly distended gallbladder. She was started on Zosyn. General surgery was consulted. MRCP showed mildly dilated common duct but no choledocholithiasis. She had cholelithiasis. Brain MRI showed nonspecific cerebral white matter disease. HIDA scan showed lack of activity consistent with acute cholecystitis. Patient underwent laparoscopic cholecystectomy and repair of bile duct injury on 12/04/2022. GI was consulted. Patient underwent sphincterotomy and bile duct stent was placed successfully on 12/05/22. Patient underwent repair bile duct and placement of T-tube on 12/06/2022. She tolerated these procedures well. She was treated with broad-spectrum IV antibiotics. CTA of the chest suggested severe emphysema but no pulmonary embolism. Pulmonary was involved with her care. Patient was able to be weaned to room air but does require oxygen with exertion which is at her baseline. Patient did have an episode of atrial fibrillation with RVR. she had had an elevated CHAD2 score of 4. Full anticoagulation was held due to her above issues. Patient does have a known pa
[2022-12-20] MEDS: UMECLIDINIUM BROMIDE 62.5 MCG ELLIPTA 1 PUFF INHALATION (09:33)
--- NOTE | 2022-12-20 10:47 | PCRCNOTE ---
Home o2 set up with [facility]. Portable o2 concentrator is here with patient for D/C
--- NOTE | 2022-12-20 10:52 | PM.PNGS ---
Progress Note: A&P Assessment and Plan (1) Common bile duct leak: Code(s): K83.8 - Other specified diseases of biliary tract Status: Acute Assessment and Plan: Repair performed 12/06/2022 seems to have healed well so far. T-Tube is in place and cholangiogram yesterday looked good. No bile draining from JOHN drain for several days and minimal output from JOHN drain for several days. JOHN drain to be removed today. Okay to discharge patient. I discussed with Dr. Cruz. She will follow-up with me in 2 weeks. Wound care and T-tube care discussed as well. T-Tube will likely remain in place for 6 weeks. It can be removed in my office. (2) Cholelithiasis and acute cholecystitis with obstruction: Code(s): K80.01 - Calculus of gallbladder with acute cholecystitis with obstruction Status: Resolved Assessment and Plan: Difficult laparoscopic cholecystectomy 12/04/2022 with bile duct injury. (3) Opioid dependence with current use: Code(s): F11.20 - Opioid dependence, uncomplicated Status: Chronic Assessment and Plan: Continues on previous home dose of narcotics for right shoulder pain. (4) COPD (chronic obstructive pulmonary disease): Qualifiers: COPD type: emphysema Emphysema type: unspecified Qualified Code(s): J43.9 - Emphysema, unspecified Code(s): J44.9 - Chronic obstructive pulmonary disease, unspecified Status: Chronic Assessment and Plan: Home on oxygen with activity. (5) Atrial fibrillation with RVR: Code(s): I48.91 - Unspecified atrial fibrillation Status: Acute Assessment and Plan: Discussed with Dr. Cruz. Patient will restart Eliquis on 12/22/2022. (6) Peripheral artery disease: Code(s): I73.9 - Peripheral vascular disease, unspecified Status: Chronic Assessment and Plan: Patient has severe lower extremity peripheral vascular disease especially to the left leg. I think this is being somewhat masked by her narcotic use. She should follow-up with vascular surgeon as an outpatient. Subjective Subjective Date/Time Seen: 12/20/22 10:52 Post Op day: #14 Patient reports: no new complaints, feels better, tolerating a regular diet, bowel movement and afebrile Exam Const: General: comfortable and no acute distress; No confusion Orientation/consciousness: patient oriented x3 and No confusion GI: Inspection: incision (Dry and healing well. Suture removed from previous JOHN site.), scaphoid and other (Old blood in JOHN drain and very small amounts. T-tube clamped.) GI Palp: Yes Soft to palpation, No Tenderness to palpation present (GI), No Guarding due to palpation present (GI) and No Rebound tenderness present Auscultation: normal bowel sounds Neuro: General: patient oriented x3, no focal motor deficits and No confusion Extrem: General: no calf tenderness and no edema Psych: Affect: normal affect Insight: Good insight present (Psych) Judgement: Good judgement present (Psych) Objective Data Vital Signs Vital Signs: Vital Signs - 24 hr 12/19/22 12:00 12/19/22 12:00 12/19/22 13:00 Temperature 37.1 C Pulse Rate 82 Respiratory Rate 18 Blood Pressure 116/64 Pulse Oximetry 96 96 98 Oxygen Delivery Nasal Cannula Room Air Oxygen Flow Rate 1 12/19/22 13:05 12/19/22 13:07 12/19/22 13:15 Temperature Pulse Rate Respiratory Rate Blood Pressure Pulse Oximetry 81 L 92 96 Oxygen Delivery Room Air Nasal Cannula Room Air Oxygen Flow Rate 2 12/19/22 12:00 12/19/22 14:00 12/19/22 16:00 Temperature Pulse Rate 85 86 79 Respiratory Rate Blood Pressure Pulse Oximetry Oxygen Delivery Oxygen Flow Rate 12/19/22 16:00 12/19/22 20:25 12/19/22 20:00 Temperature 36.6 C 36.4 C L Pulse Rate 80 Respiratory Rate 16 20 Blood Pressure 109/58 L 120/73 Pulse Oximetry 91 100 Oxygen Delivery Room Air Oxygen Flow Rate 12/20/22 00:00 12/20/22
== END 2022-12-20 12:30 | disposition home health service (06) | DRG 408 ==
LOC: ANHED 08:36 → ANH3MEDSUR 11:03 → ANHIMU 12-11 16:48 → ANHICU 12-13 11:55 → ANHIMU 12-14 15:52 → ANH3MED 12-19 22:27
PROVIDERS: General Practice; Internal Medicine Critical Care Medicine; Internal Medicine Gastroenterology; Internal Medicine Pulmonary Disease; Nurse Practitioner; Nurse Practitioner Family; Student in an Organized Health Care Education/Training Program; Surgery; Admitting Provider Internal Medicine; Emergency Provider Family Medicine; PCP Registered Nurse; Visit Provider Internal Medicine
PROC: 0FT44ZZ Resection of Gallbladder, Percutaneous Endoscopic Approach (ICD-10-PCS; CPT 47562; principal; 2022-12-04 13:30)
PROC: 0F798DZ Dilation of Common Bile Duct with Intraluminal Device, Via Natural or Artificial Opening Endoscopic (ICD-10-PCS; CPT 43260; principal; 2022-12-05 15:00)
PROC: 0FQ90ZZ Repair Common Bile Duct, Open Approach (ICD-10-PCS; CPT 49000; principal; 2022-12-06 13:30)
DX: K80.12 Calculus of gallbladder with acute and chronic cholecystitis without obstruction (principal); G93.41 Metabolic encephalopathy; J69.0 Pneumonitis due to inhalation of food and vomit; K83.2 Perforation of bile duct; K65.3 Choleperitonitis; K91.71 Accidental puncture and laceration of a digestive system organ or structure during a digestive system procedure; L03.116 Cellulitis of left lower limb; L03.115 Cellulitis of right lower limb; I96 Gangrene, not elsewhere classified; L76.22 Postprocedural hemorrhage of skin and subcutaneous tissue following other procedure; D62 Acute posthemorrhagic anemia; J96.11 Chronic respiratory failure with hypoxia; Q21.12 Patent foramen ovale; F11.20 Opioid dependence, uncomplicated; E46 Unspecified protein-calorie malnutrition; Z68.1 Body mass index [BMI] 19.9 or less, adult; Y83.8 Other surgical procedures as the cause of abnormal reaction of the patient, or of later complication, without mention of misadventure at the time of the procedure; J43.9 Emphysema, unspecified; Z20.822 Contact with and (suspected) exposure to COVID-19; D72.829 Elevated white blood cell count, unspecified; I48.91 Unspecified atrial fibrillation; G62.9 Polyneuropathy, unspecified; I10 Essential (primary) hypertension; F32.A Depression, unspecified; E87.6 Hypokalemia; R00.0 Tachycardia, unspecified; E05.90 Thyrotoxicosis, unspecified without thyrotoxic crisis or storm; R79.1 Abnormal coagulation profile; F41.9 Anxiety disorder, unspecified; I73.9 Peripheral vascular disease, unspecified; M79.606 Pain in leg, unspecified; I99.8 Other disorder of circulatory system; M21.371 Foot drop, right foot; N32.81 Overactive bladder; Z98.1 Arthrodesis status; F17.210 Nicotine dependence, cigarettes, uncomplicated; Z91.199 Patient's noncompliance with other medical treatment and regimen due to unspecified reason; Z90.49 Acquired absence of other specified parts of digestive tract; D63.8 Anemia in other chronic diseases classified elsewhere
CPT/HCPCS: 36415; 36600; 47531; 51701; 70450; 70551; 71045; 71260; 71275; 74176; 74177; 74183; 74240; 74248; 74300; 74329; 76376; 76705; 78226; 80048; 80053; 80061; 80076; 81001; 81003; 82274; 82375; 82607; 82746; 82805; 82948; 83050; 83605; 83735; 83880; 84100; 84132; 84145; 84439; 84443; 85014; 85018; 85025; 85027; 85055; 85610; 85730; 86140; 86850; 86900; 86901; 87040; 87493; 87502; 87637; 88304; 93005; 93922; 93970; 94618; 94640; 94762; 96361; 96365; 96366; 96367; 96368; 96372; 96375; 96376; 97110; 97116; 97161; 97165; 97530; 97535; 99285; A9270; A9537; A9577; C1713; C1876; G0378; J0131; J0330; J0690; J0743; J1100; J1170; J1610; J1630; J1650; J2060; J2250; J2270; J2310; J2370; J2405; J2543; J2550; J2704; J2710; J3010; J3475; J3480; J7030; J7040; J7120; Q9966; Q9967; U0003; U0005

== ENCOUNTER 2022-12-31 05:39 | Inpatient (IN) | payer MEDICARE, SELFPAY ==
[2022-12-31] VITALS (22 sets, daily range): BP systolic 94–158; BP diastolic 61–89; PULSE 65–115; RESP 16–28; TEMP 36.6–37.2; O2SAT 84–100; BMI 17.9
--- NOTE | 2022-12-31 | ECHO_ITS ---
Patient Info Name: Chantal Grvoe Age: 67 years : 1955 Gender: Female Ht: 64 in Wt: 104 lbs BSA: 1.45 m2 HR: 77 bpm BP: 94 / 62 mmHg Heart Rhythm: Sinus Rhythm Exam Date: 12/31/2022 2:32 PM Exam Location: [facility] Patient Status: Outpatient Admit Date: 12/31/2022 Staff Ordering Physician: Ochoa Leach MD Butter Fat Tester: Masood Garnica RDCS, RT Attending Provider: Javier Kramer MD Referring Physician: Hany MACDONALD; Exam Type: CA echo doppler color flow Study Info Indications I50.9 - Heart failure, unspecified Complete two-dimensional, color flow and Doppler transthoracic echocardiogram is performed. Strain analysis performed. Summary 1. Complete two-dimensional, color flow and Doppler transthoracic echocardiogram is performed. 2. The inferoseptal wall, basal inferior wall, mid inferior wall, basal anteroseptal, and mid anteroseptal are hypokinetic. 3. Left ventricular systolic function is mildly reduced, estimated at 45-50%. 4. There is mildly increased left ventricular wall thickness. 5. The left ventricular diastolic function is normal. 6. Global longitudinal strain is abnormal at -16 %. 7. Right ventricular chamber dimension is mildly enlarged. 8. Left atrial chamber dimension is mildly enlarged. 9. There is mild aortic valve stenosis with a peak velocity of 166 cm/s, mean gradient of 6 mmHg, and aortic valve area of 1.7 cm2. 10. There is severe aortic valve calcification. 11. There is mild to moderate mitral valve regurgitation. 12. There is mild tricuspid valve regurgitation. 13. Strain analysis performed. Left Ventricle Left ventricular systolic function is mildly reduced, estimated at 45-50%. There is mildly increased left ventricular wall thickness. The left ventricular diastolic function is normal. Global longitudinal strain is abnormal at -16 %. The inferoseptal wall, basal inferior wall, mid inferior wall, basal anteroseptal, and mid anteroseptal are hypokinetic. All other flores appear normal. Right Ventricle Right ventricular chamber dimension is mildly enlarged. Right ventricular systolic function is normal. Left Atria Left atrial chamber dimension is mildly enlarged. Right Atria Right atrial chamber dimension is normal. Atrial Septum Intact interatrial septum visualized by color flow imaging. Aortic Valve The aortic valve is probable trileaflet. There is mild aortic valve stenosis with a peak velocity of 166 cm/s, mean gradient of 6 mmHg, and aortic valve area of 1.7 cm2. There is trace aortic valve regurgitation. There is severe aortic valve calcification. Pulmonic Valve The pulmonic valve is normal. There is no pulmonic valve stenosis. There is trace pulmonic regurgitation. Mitral Valve The mitral valve has normal leaflets. There is no mitral valve stenosis. There is mild to moderate mitral valve regurgitation. Tricuspid Valve Moderate pulmonary hypertension, estimated pulmonary arterial systolic pressure is 54mmHg. The tricuspid valve leaflets are normal. There is no significant tricuspid valve stenosis. There is mild tricuspid valve regurgitation. Pericardium/Pleural The pericardium appears normal. There is no pericardial effusion. Inferior Vena Cava Dilated inferior vena cava with <50% collapse upon inspiration consistent with elevated right atrial pressure, 10 mmHg. Aorta The aortic root size at the sinus of Valsalva is normal. Left Ventricular Outflow Tract
--- NOTE | ~2022-12-31 | XR_ITS ---
EXAMINATION: XR chest 1V portable DATE: 12/31/2022 06:26 INDICATION: Cough and shortness of breath. TECHNIQUE: A single frontal view of the chest was obtained. COMPARISON: Chest single view 12/13/2022, chest CT 12/13/2022 FINDINGS: The lungs demonstrate lucencies, consistent with emphysema. There are interstitial and airs pace opacities in the mid and lower lung zones. No pleural effusion or pneumothorax. The heart size i s normal. Surgical clips in the right upper quadrant are likely from cholecystectomy. There is a T-tu be in the right upper quadrant. IMPRESSION: 1. Worsened diffuse lung disease, consistent with pneumonia versus pulmonary edema superimposed on em physema. Reviewed, dictated and finalized at location A. VE SEPARATOR IMPRESSION: 1. Worsened diffuse lung disease, consistent with pneumonia versus pulmonary ed maricruz superimposed on emphysema.
--- NOTE | ~2022-12-31 | XR_ITS ---
Portable chest x-ray Comparison: 12/31/2022 Clinical History: CHF, COPD Findings: There is patchy groundglass pulmonary disease with mild interstitial prominence. No pleura l effusion. Cardiomediastinal silhouette is stable. Bones and soft tissues are unremarkable. Impression: Patchy groundglass pulmonary disease with basilar predominance, as well as mild interstitial process. Findings suggest pulmonary edema with possible superimposed chronic interstitial disease. Correlate clinically. Reviewed, dictated and finalized at location . RSTITCH BINDER Impression: Patchy groundglass pulmonary disease with basilar predominance, as well as mild interstitial process. Findings suggest pulmonary edema with possible superimpo sed chronic interstitial disease. Correlate clinically.
--- NOTE | ~2022-12-31 | CT_ITS ---
EXAMINATION:CT chest high resolution wo nm DATE: 01/01/2023 17:48 INDICATION: Hypoxemia. TECHNIQUE: Computed tomography (CT) of the chest was performed without intravenous contrast. Automate d exposure control and iterative reconstruction technique were employed. The dose-length product (DLP ) was 124.21 mGy-cm. COMPARISON: Chest CT 12/13/2022 FINDINGS: There is severe emphysema. There are small pleural effusions. There is atelectasis bilatera lly with a dependent predominance. There is a 10 mm nodule in left thyroid lobe, likely not clinicall y significant. The heart size is normal. There are coronary artery calcifications. No pericardial eff usion. There is mild mediastinal lymphadenopathy, likely reactive. Pneumobilia is noted. Partially vi sualized is a T-tube. There are chronic burst fractures of T12-L1. There is a chronic compression fra cture of T11. There is severe thoracic spondylosis. IMPRESSION: 1. Small pleural effusions, worsened from 12/13/2022. 2. Severe emphysema. Reviewed, dictated and finalized at location A. RTING CONSULTANT
[2022-12-31 05:47] LABS: Alveolar/Arterial O2 Gradient 79.5 mmHg; Base Excess ABG 0.7 mEq/l (+/-2.0); Fractional Inspired Oxygen 28 %; HCO3 ABG 25.5 mEq/l (22.0-26.0); Oxygen Content ABG 14.8 %vol (16.0-22.0); Oxygen Saturation ABG 94.3 % (95.0-100.0); PCO2 ABG 41.7 mmHg (35.0-45.0); PO2 ABG 70.9 mmHg (80.0-100.0); PO2 FiO2 Ratio Arterial Blood 2.53 %; Total Hemoglobin 11.5 g/dL (12.0-18.0); pH ABG 7.404 (7.350-7.450)
[2022-12-31 05:48] LABS: Device NASAL CANNULA; Modified Allen's Test Pass; Site Drawn RIGHT RADIAL
--- NOTE | 2022-12-31 05:57 | ECG_ITS ---
Measurements Intervals [place] Rate: 80 P: 89 ID: [id number] QRS: 87 QRSD: 97 T: 109 QT: 430 QTc: 496 Interpretive Statements SINUS RHYTHM LIMB LEAD REVERSAL CANNOT RULE OUT SEPTAL INFARCT, AGE INDETERMINATE ST-T WAVE ABNORMALITY IN ANTERIOR LEADS- CONSIDER ISCHEMIA ABNORMAL ECG BASELINE ARTIFACT- I, II, III, AVR, AVL, AVF, V1-V6 COMPARED TO ECG 12/12/2022 15:40:28 SINUS RHYTHM NOW PRESENT ST-T WAVE ABNORMALITY NOW PRESENT Electronically Signed On 12-31-2022 6:53:59 [employer]MENT by Michael Cannon D.O.
--- NOTE | 2022-12-31 05:58 | ED.SOB ---
HPI - SOB/Dyspnea General Chief Complaint: Shortness of Breath/Dyspnea Stated Complaint: shortness of breath Time Seen by Provider: 12/31/22 05:42 History of Present Illness HPI Narrative: Pt is a 67 yo F with hx of recently diagnosed COPD, hypertension presenting with shortness of breath. Pt states she has been waking up around 4 am for the last several nights with acute shortness of breath. States it is worse when laying down. States her inhaler has not helped. Denies chest pain, fevers, lightheadedness, abdominal pain, n/v/d, leg swelling. Related Data Home Medications Medication Instructions Recorded Confirmed pregabalin 100 mg capsule 100 mg PO DAILY 08/27/22 12/31/22 sertraline 100 mg tablet 100 mg PO DAILY 08/27/22 12/31/22 ferrous sulfate 325 mg (65 mg 325 mg PO DAILY 09/13/22 12/31/22 iron) tablet (FeroSul) Allergies Allergy/AdvReac Type Severity Reaction Status Date / Time atorvastatin Allergy Itching Verified 12/31/22 08:22 codeine Allergy Hives Verified 12/31/22 08:19 vancomycin Allergy Rash Verified 12/31/22 08:19 Cephalosporins AdvReac Diarrhea Verified 12/31/22 08:19 Review of Systems Review of Systems: All systems reviewed & are unremarkable except as noted in HPI and below PMFSH Past Medical History Medical History Chronic back pain COPD (chronic obstructive pulmonary disease) Depression Foot drop Hypertension Iron deficiency anemia Neuropathy Overactive bladder Surgical History Surgical History H/O tubal ligation tubal repair after a tubal H/O umbilical hernia repair History of appendectomy History of foot surgery History of spinal fusion Family History Family History Other Heart disease Hypertension Social History Social History Social History: the patient has 2 adopted children and no biological children. Patient smokes 3/4 of a pack a cigarettes daily and has no intention on smoking cessation. The patient does have a nightly beer. The patient is and lives with her . Her is the durable power managing attorney for healthcare. Code status full code Smoking packs per day: 0.5 Smoking cigarettes per day: 10.0 Years smoked: 50 Smoking pack-years: 25.00 Smoking status: Current every day smoker Tobacco type: cigarettes Second hand tobacco smoke exposure: No Alcohol intake: current Drinks per week: 6 Substance use: never Substance use type: does not use Lack of Transportation: No Lack of Food: Never True Current Housing: I Have Housing Concerned About Future Housing: No Difficulty Paying Gas/Electric Bills: No Difficulty Paying for Meds: No Currently Unemployed: No Education: High School Diploma/GED Difficulty w/ Childcare or Family Care: No Living arrangements: with family Spiritual care concerns: No Exam Const: General: ill appearing HENMT: Head: normal to inspection Mouth: Yes Normal oral and palatal mucosa present Eyes: Conjunctivae: conjunctivae normal Pupils: Equal, round and reactive pupils present EOM: EOMs intact bilaterally Chest: Chest palpation & inspection: normal inspection of the chest Resp: Effort & Inspection: labored and tachypneic Auscultation: diminished lung sounds Cardio: Rate: tachycardic Rhythm: regular rhythm GI: GI Palp: Yes Soft to palpation, No Tenderness to palpation present (GI), No Guarding due to palpation present (GI) and No Rebound tenderness present Back/Spine/Pelvis: Back: no CVA tenderness Skin: General skin exam: normal color Rashes: no rashes Neuro: General: patient oriented x3, moves all extremities, no focal motor deficits and CN's II-XI intact bilaterally Extrem: General: normal to inspection and no pedal edema
[2022-12-31 06:19] LABS: Basophils Absolute Auto 0.1 K/mm3 (0.0-0.1); Basophils Percent Auto 0.6 % (0.2-1.2); Eosinophils Absolute Auto 0.3 K/mm3 (0-0.3); Eosinophils Percent Auto 2.8 % (0-4.4); Hematocrit 32.7 % (37.0-47.0); Hemoglobin 10.3 g/dL (12.0-15.0); Immature Granulocyte Absolute 0.02 K/mm3 (0.00-0.031); Immature Granulocyte Percent A 0.2 % (0-0.5); Lymphocytes Percent Auto 22.5 % (18.3-44.2); Mean Corpuscular HGB Conc 31.5 g/dl (32-36); Mean Corpuscular Hemoglobin 28.4 pg (26-34); Mean Corpuscular Volume 90.1 fl (80-100); Mean Platelet Volume 10.8 fl (7.4-10.4); Monocytes Absolute Auto 0.7 K/mm3 (0.1-0.6); Monocytes Percent Auto 6.4 % (2.6-8.5); Neutrophils Absolute Auto 7.5 K/mm3 (1.3-6.7); Neutrophils Percent Auto 67.5 % (45.5-73.1); Platelet Count Result 438 k/mm3 (150-375); Red Blood Count 3.63 M/mm3 (4.2-5.4); Red Cell Distribution Width 19.6 % (11.5-14.5); White Blood Count 11.1 K/mm3 (4.5-10.0)
[2022-12-31 06:31] LABS: INR 1.4; Prothrombin Time 16.6 Seconds (11.1-14.7)
[2022-12-31] MEDS: IPRATROPIUM BR 0.02% INH SOLN 0.5 MG/2.5 ML VIAL INHALATION (06:31)
[2022-12-31] MEDS: ALBUTEROL SULFATE NEB 2.5 MG/3 ML INH 10 MG INHALATION (06:31)
[2022-12-31 06:32] LABS: Alanine Aminotransferase 21 U/L (6-35); Albumin Level 3.5 g/dL (3.5-5.1); Alkaline Phosphatase 128 U/L (38-126); Anion Gap 7 mmol/L (8-16); Aspartate Amino Transferase 42 U/L (14-36); Bilirubin,Total 0.6 mg/dL (0.2-1.3); Blood Urea Nitrogen 11 mg/dL (7-17); Calcium 8.3 mg/dL (8.4-10.2); Carbon Dioxide 24 mmol/L (22-30); Chloride 104 mmol/L (98-107); Estimated CRCL calculation 59 ml/min; Estimated Glomerular Filt Rate > 60; Glucose 100 mg/dL (65-110); Partial Thromboplastin Time 38.3 SECONDS (22.3-36.8); Potassium 3.9 mmol/L (3.4-5.0); Sodium 135 mmol/L (137-145)
[2022-12-31 06:43] LABS: NT Pro B Type Natriuretic Pept 20100 pg/mL (19.9-100); Troponin I < 0.012 ng/mL (0.000-0.034)
--- NOTE | 2022-12-31 08:02 | ADMGEN ---
This patient, [place], was admitted to Medical Room 253-01. Patient/family oriented to hospital policies and general routines including ID bracelet, bed and alarms, visiting hours, pain management, procedures, bathroom and other care routines, personal items, smoking policy, room service/diet, and visiting hours. Information on how to activate the Rapid Response Team has been discussed. Patient/Family are encouraged to report perceived risks to care and to ask questions if they do not understand what they are told or what they should do.
[2022-12-31] MEDS: FUROSEMIDE INJ 40 MG/4 ML VIAL 20 MG IV PUSH (08:35)
[2022-12-31] MEDS: SERTRALINE HCL 50 MG TABLET 100 MG PO (09:09)
[2022-12-31] MEDS: FERROUS SULFATE 324 MG TABLET PO (09:09)
[2022-12-31] MEDS: APIXABAN 5 MG TABLET PO ×2 (09:10→20:36)
[2022-12-31] MEDS: METOPROLOL TARTRATE 50 MG TAB PO ×2 (09:10→20:36)
[2022-12-31] MEDS: PREGABALIN (*CRX) 50 MG CAPSULE 100 MG PO (09:13)
[2022-12-31] MEDS: oxyCODONE HCL (*CRX) 5 MG TAB IR 10 MG PO ×2 (09:13→17:02)
[2022-12-31 09:59] LABS: Troponin I < 0.012 ng/mL (0.000-0.034)
[2022-12-31 10:00] LABS: Influenza A QL RT-PCR Negative (Negative); Influenza B QL RT-PCR Negative (Negative); RSV RNA, RT-PCR Negative (Negative); SARS-CoV-2 RNA PCR Negative
--- NOTE | 2022-12-31 10:43 | PM.IMHP ---
H&P: HPI History of Present Illness Date/Time: 12/31/22 10:43 Chief Complaint: 67yo Female with complaints of sob x last few days mild edema also noted denies cp denies any significant fever on evaluation in ed - foudn to have elevated bnp, edema and cx shows volume overload also found to be have sinus tachycardia Review of Systems Review of Systems: 10 pt ros negative except as stated in hpi PMFSH Past Medical History Medical History Chronic back pain COPD (chronic obstructive pulmonary disease) Depression Foot drop Hypertension Iron deficiency anemia Neuropathy Overactive bladder Surgical History Surgical History H/O tubal ligation tubal repair after a tubal H/O umbilical hernia repair History of appendectomy History of foot surgery History of spinal fusion Family History Family History Other Heart disease Hypertension Social History Social History Social History: the patient has 2 adopted children and no biological children. Patient smokes 3/4 of a pack a cigarettes daily and has no intention on smoking cessation. The patient does have a nightly beer. The patient is and lives with her . Her is the durable power mechanical maintenance worker for healthcare. Code status full code Smoking packs per day: 0.5 Smoking cigarettes per day: 10.0 Years smoked: 50 Smoking pack-years: 25.00 Smoking status: Current every day smoker Tobacco type: cigarettes Second hand tobacco smoke exposure: No Alcohol intake: current Drinks per week: 14 Substance use: never Substance use type: does not use Lack of Transportation: No Lack of Food: Never True Current Housing: I Have Housing Concerned About Future Housing: No Difficulty Paying Gas/Electric Bills: No Difficulty Paying for Meds: No Currently Unemployed: No Education: Associate Degree Difficulty w/ Childcare or Family Care: No Living arrangements: with family Spiritual care concerns: No Meds Home Medications and Allergies Home Medications Medication Instructions Recorded Confirmed Type pregabalin 100 mg capsule 100 mg PO DAILY 08/27/22 12/31/22 History sertraline 100 mg tablet 100 mg PO DAILY 08/27/22 12/31/22 History ferrous sulfate 325 mg (65 mg 325 mg PO DAILY 09/13/22 12/31/22 History iron) tablet (FeroSul) umeclidinium 62.5 mcg/actuation 1 inh inhalation DAILY #30 ea 09/16/22 12/31/22 Rx blister powder for inhalation (Incruse Ellipta) apixaban 5 mg tablet (Eliquis) 5 mg PO BID #60 tabs 12/20/22 12/31/22 Rx metoprolol tartrate 50 mg tablet 50 mg PO Q12HR #60 tabs 12/20/22 12/31/22 Rx oxycodone 10 mg tablet 10 mg PO TID PRN Pain (Scale Score 12/20/22 12/31/22 Rx 7-10) #7 tabs Allergies Allergy/AdvReac Type Severity Reaction Status Date / Time atorvastatin Allergy Itching Verified 12/31/22 08:22 codeine Allergy Hives Verified 12/31/22 08:19 vancomycin Allergy Rash Verified 12/31/22 08:19 Cephalosporins AdvReac Diarrhea Verified 12/31/22 08:19 Vital Signs Vital Signs - 24 hr 12/31/22 05:38 12/31/22 05:54 12/31/22 05:48 Temperature 97.8 F Pulse Rate 87 Respiratory Rate 20 Blood Pressure 153/89 H Pulse Oximetry 87 L 93 92 Oxygen Delivery Room Air Nasal Cannula Nasal Cannula Oxygen Flow Rate 2 2 12/31/22 06:32 12/31/22 05:45 12/31/22 06:01 Temperature Pulse Rate 71 74 Respiratory Rate 22 H 28 H Blood Pressure 158/80 H Pulse Oximetry 93 92 Oxygen Delivery Nasal Cannula Oxygen Flow Rate 2 12/31/22 06:16 12/31/22 06:31 12/31/22 06:46 Temperature Pulse Rate 81 71 66 Respiratory Rate 23 H 24 H 22 H Blood Pressure 155/84 H 147/79 H 134/71 Pulse Oximetry 92 100 Oxygen Delivery Oxygen Flow Rate
--- NOTE | 2022-12-31 11:00 | PC.NURSE ---
4535 Dr Leach notified of pt sob sat 84% on 2l had to increase to 4l fro sat 94%. On tele afib in 140's, Lasix IV not given in er. New received
--- NOTE | 2022-12-31 11:48 | PM.CNCAR ---
Assessment and Plan Assessment and plan (1) Acute decompensated heart failure: Code(s): I50.9 - Heart failure, unspecified Status: Acute (2) Atrial fibrillation with RVR: Code(s): I48.91 - Unspecified atrial fibrillation Status: Acute (3) Hypertension: Qualifiers: Hypertension type: primary hypertension Qualified Code(s): I10 - Essential (primary) hypertension Code(s): I10 - Essential (primary) hypertension Status: Chronic (4) PFO (patent foramen ovale): Code(s): Q21.12 - Patent foramen ovale Status: Chronic (5) COPD (chronic obstructive pulmonary disease): Qualifiers: COPD type: emphysema Emphysema type: unspecified Qualified Code(s): J43.9 - Emphysema, unspecified Code(s): J44.9 - Chronic obstructive pulmonary disease, unspecified Status: Chronic (6) Hypoxia: Code(s): R09.02 - Hypoxemia Status: Acute Plan Patient is now back in sinus rhythm. continue Metoprolol and Eliquis. Patient is volume overloaded. Continue with IV diuresis. Echocardiogram is pending. Last echo from 08/2022 showed preserved LVEF. History of Present Illness History of Present Illness Consult date/time: 12/31/22 11:48 Requesting physician: Ochoa Leach MD Consult reason: congestive heart failure and shortness of breath Reason For Visit: Hypoxic Respiratory Failure Narrative: We are consulted for CHF and atrial fibrillation. This is a 67-year-old female who was recently discharged from [facility] on 12/20 after being admitted with acute cholecystitis. She had undergone lap fei with repair of bile duct injury on 12/04, and then underwent sphincterotomy and bile duct stent on 12/05, and then repair of bile duct and placement of T-tube on 12/06. During this hospitalization, she was found with new diagnosis of paroxysmal atrial fibrillation, for which we had seen here at that time. Started on Metoprolol for rate control and started on anticoagulation as well. Patient reports that since discharge she was initially doing well. However, past few days she developed shortness of breath and lower extremity edema. ER evaluation showed negative troponins x 2, BNP elevated at 20,100. EKG with sinus rhythm with T-wave inversion in the anterolateral leads, which are new from before. She was in atrial fibrillation with RVR this morning, but denies any palpitations. She has gotten IV Lasix and states she is already feeling better. Review of Systems Review of Systems: 12-point ROS obtained. Negative, unless stated in HPI. [facility] Past Medical History Medical History Chronic back pain COPD (chronic obstructive pulmonary disease) Depression Foot drop Hypertension Iron deficiency anemia Neuropathy Overactive bladder Surgical History Surgical History H/O tubal ligation tubal repair after a tubal H/O umbilical hernia repair History of appendectomy History of foot surgery History of spinal fusion Family History Family History Other Heart disease Hypertension Social History Social History Social History: the patient has 2 adopted children and no biological children. Patient smokes 3/4 of a pack a cigarettes daily and has no intention on smoking cessation. The patient does have a nightly beer. The patient is and lives with her . Her is the durable power employment attorney for healthcare. Code status full code Smoking packs per day: 0.5 Smoking cigarettes per day: 10.0 Years smoked: 50 Smoking pack-years: 25.00 Smoking status: Current every day smoker Tobacco type: cigarettes Second hand tobacco smoke exposure: No Alcohol intake: current Drinks per week: 14 Substance use: never Substance use type: do
[2022-12-31 12:44] LABS: Troponin I 0.013 ng/mL (0.000-0.034)
[2022-12-31] MEDS: BETAMETHASONE/CLOTRIMAZOLE CR 45 GM TUBE 1 APPLIC TOPICAL (16:57)
--- NOTE | 2022-12-31 17:20 | PM.CNGS ---
Assessment and Plan Assessment and plan (1) Acute decompensated heart failure: Code(s): I50.9 - Heart failure, unspecified Status: Acute Assessment and Plan: Improved with diuretics. Patient not nearly shortness breath as she was last night and early this morning. (2) Common bile duct leak: Code(s): K83.8 - Other specified diseases of biliary tract Status: Acute Assessment and Plan: Bile duct injury repaired 12/06/2022 over T-tube. Cholangiograms have been normal with no evidence of bile leak and patent common bile duct. Recommend to leave T-tube clamped. Plan is to repeat her cholangiogram later in January and possibly remove the T-tube in my office towards the end of the month or an early January. After discharge patient can see me in approximately 2 weeks rather than on January 06. Appears to be recovering from her surgical procedure adequately although did develop decompensated CHF. History of Present Illness Consult details Consult date: 12/31/22 Requesting physician: Ochoa Leach MD Narrative: Patient is a 67-year-old woman with severe emphysema who is well known to me from admission earlier this month. Patient came to the emergency room with fever and delirium on 11/29/2022. She was admitted we saw her in consultation the next day. She was treated with antibiotics but eventually the workup showed that she had severe acute cholecystitis. She underwent a difficult laparoscopic cholecystectomy on 12/04/2022. Her bile duct was dilated and was injured during the surgery. It appeared to be a small injury and was clipped during the surgery. She did have a bile leak after the procedure. This was controlled with a JOHN drain. ERCP on 12/05/2022 did not help with the bile leak. Patient was taken back to surgery on 12/06 2022 and underwent repair of the bile duct injury. Some of the bile duct had to be removed and it was reanastomosed over a T-tube. Following this surgery, the patient went on to heal. She had a bile leak for a few days but eventually no bile was leaking through her JOHN drain. She had a cholangiogram during the surgery and again on December 10. Both were negative for significant bile leak. She had a final cholangiogram on 12/19/2022 which also showed a patent bile duct with no leak. Her JOHN drain had not drained any bile for several days and was removed on December 20, 2022. She was able to be discharged on the . She was going to see me in the office on January 06Friday this week coming week. She however has been readmitted now with shortness of breath and what appears to be congestive heart failure. She has responded well to diuretics. She was just admitted this morning. Her T tube has been clamped since her discharge on December 20. I was asked to see her in consultation regarding her biliary drain and her postoperative condition. Patient tells me she has been eating well and has not been having any diarrhea. The T-tube has been a bit of a nuisance but she has otherwise not had any abdominal pain. She is seen now in consultation. Review of Systems Review of Systems: All systems reviewed & are unremarkable except as noted in HPI and below (HPI and those items noted below) Constitutional: Constitutional: Denies chills and Denies fever(s) Cardiovascular: Cardiovascular: Reports as per HPI, Denies chest pain, Denies diaphoresis, Reports edema, Reports dyspnea and Reports dyspnea on exertion Respiratory: Respiratory: Reports as per HPI, Denies chest congestion, Denies cough and Reports dyspnea Gastrointestinal: Gastrointestinal: Reports as per HPI, Denies abdominal pain, Denies diarrhea, Denies nausea and Denies vomiting Integumentary/Breasts: Skin/Breast: Denies lesions and Denies rash PMF Past Medical History Medical History Chronic back pain COPD (chronic obstructive pulmonary disease) Depression Foot nahum
[2023-01-01] VITALS (17 sets, daily range): BP systolic 102–136; BP diastolic 55–70; PULSE 63–87; RESP 16–24; TEMP 36.2–37.4; O2SAT 74–94
[2023-01-01 05:23] LABS: Basophils Absolute Auto 0.1 K/mm3 (0.0-0.1); Basophils Percent Auto 0.6 % (0.2-1.2); Eosinophils Absolute Auto 0.2 K/mm3 (0-0.3); Eosinophils Percent Auto 2.8 % (0-4.4); Hematocrit 29.4 % (37.0-47.0); Hemoglobin 9.1 g/dL (12.0-15.0); Immature Granulocyte Absolute 0.02 K/mm3 (0.00-0.031); Immature Granulocyte Percent A 0.2 % (0-0.5); Lymphocytes Absolute Auto 1.99 K/mm3 (0.9-3.2); Lymphocytes Percent Auto 24.4 % (18.3-44.2); Mean Corpuscular Hemoglobin 28.8 pg (26-34); Mean Platelet Volume 10.6 fl (7.4-10.4); Monocytes Absolute Auto 0.5 K/mm3 (0.1-0.6); Monocytes Percent Auto 6.4 % (2.6-8.5); Neutrophils Absolute Auto 5.3 K/mm3 (1.3-6.7); Neutrophils Percent Auto 65.6 % (45.5-73.1); Platelet Count Result 343 k/mm3 (150-375); Red Blood Count 3.16 M/mm3 (4.2-5.4); Red Cell Distribution Width 19.9 % (11.5-14.5); White Blood Count 8.1 K/mm3 (4.5-10.0)
[2023-01-01 05:29] LABS: Anion Gap 3 mmol/L (8-16); Blood Urea Nitrogen 11 mg/dL (7-17); Calcium 7.4 mg/dL (8.4-10.2); Carbon Dioxide 28 mmol/L (22-30); Chloride 106 mmol/L (98-107); Estimated CRCL calculation 51 ml/min; Estimated Glomerular Filt Rate > 60; Glucose 96 mg/dL (65-110); Potassium 3.8 mmol/L (3.4-5.0); Sodium 137 mmol/L (137-145)
[2023-01-01 05:38] LABS: NT Pro B Type Natriuretic Pept 9890 pg/mL (19.9-100)
[2023-01-01] MEDS: FUROSEMIDE INJ 40 MG/4 ML VIAL IV PUSH (06:30)
[2023-01-01] MEDS: UMECLIDINIUM BROMIDE 62.5 MCG ELLIPTA 1 PUFF INHALATION (07:04)
--- NOTE | 2023-01-01 07:07 | PC.NURSE ---
[address] MCALLISTER NOTIFIED ORDER FOR CHAVEZ
[2023-01-01] MEDS: APIXABAN 5 MG TABLET PO ×2 (11:00→21:21)
[2023-01-01] MEDS: SERTRALINE HCL 50 MG TABLET 100 MG PO (11:00)
[2023-01-01] MEDS: predniSONE 20 MG TABLET 40 MG PO (11:01)
[2023-01-01] MEDS: FERROUS SULFATE 324 MG TABLET PO (11:01)
[2023-01-01] MEDS: PREGABALIN (*CRX) 50 MG CAPSULE 100 MG PO (11:01)
[2023-01-01] MEDS: BETAMETHASONE/CLOTRIMAZOLE CR 45 GM TUBE 1 APPLIC TOPICAL ×2 (11:01→21:21)
[2023-01-01] MEDS: METOPROLOL TARTRATE 50 MG TAB PO (11:03)
[2023-01-01] MEDS: oxyCODONE HCL (*CRX) 5 MG TAB IR 10 MG PO ×3 (11:05→22:26)
--- NOTE | 2023-01-01 11:38 | PM.IMPN ---
Progress Note: A&P Assessment and Plan (1) Hypoxia: Code(s): R09.02 - Hypoxemia Status: Acute Assessment and Plan: Likely related to CHF exacerbation. Echo pending. Diuretics (2) Atrial fibrillation with RVR: Code(s): I48.91 - Unspecified atrial fibrillation Status: Acute Assessment and Plan: Now appears to be in sinus tach. Monitor. Continue her home medications. (3) Opioid dependence with current use: Code(s): F11.20 - Opioid dependence, uncomplicated Status: Chronic (4) PFO (patent foramen ovale): Code(s): Q21.12 - Patent foramen ovale Status: Chronic (5) Hypertension: Qualifiers: Hypertension type: primary hypertension Qualified Code(s): I10 - Essential (primary) hypertension Code(s): I10 - Essential (primary) hypertension Status: Chronic Assessment and Plan: Continue blood pressure medicines (6) COPD (chronic obstructive pulmonary disease): Qualifiers: COPD type: emphysema Emphysema type: unspecified Qualified Code(s): J43.9 - Emphysema, unspecified Code(s): J44.9 - Chronic obstructive pulmonary disease, unspecified Status: Chronic Assessment and Plan: Will start on steroids. Little concern for pneumonia at this point time afebrile. Monitor white blood cell count. (7) Neuropathy: Code(s): G62.9 - Polyneuropathy, unspecified Status: Chronic Assessment and Plan: Continue home meds (8) Iron deficiency anemia: Qualifiers: Iron deficiency anemia type: unspecified iron deficiency Qualified Code(s): D50.9 - Iron deficiency anemia, unspecified Code(s): D50.9 - Iron deficiency anemia, unspecified Status: Chronic Assessment and Plan: Continue home meds (9) Congestive heart failure: Code(s): I50.9 - Heart failure, unspecified Status: Acute Assessment and Plan: Think this is causing most of her hypoxia and shortness of breath. Continue diuretic therapy. Echo pending (10) Depression: Code(s): F32.A - Depression, unspecified Status: Chronic Assessment and Plan: Continue home Plan Assessment and plan (1) Acute on chronic respiratory failure On 2.5 liters at baseline, now on 5liters R09.02 - Hypoxemia ?Status:?Acute Likely related to CHF exacerbation r/o PNA CXR showed possible PNA, CT chest ordered Echo showed EF 45-50%.?continue diuretics (2) Atrial fibrillation with RVR: ?Code(s): I48.91 - Unspecified atrial fibrillation ?Status:?Acute ?Assessment and Plan: Continue home metoprolol and eliquis cardiology following (3) Opioid dependence with current use: ?Code(s): F11.20 - Opioid dependence, uncomplicated ?Status:?Chronic (4) PFO (patent foramen ovale): ?Code(s): Q21.12 - Patent foramen ovale ?Status:?Chronic (5) Hypertension: ?Qualifiers: ?Hypertension type:?primary hypertension? Qualified Code(s):?I10 - Essential (primary) hypertension ?Code(s): I10 - Essential (primary) hypertension ?Status:?Chronic ?Assessment and Plan: Continue blood pressure medicines (6) COPD (chronic obstructive pulmonary disease): ?Qualifiers: ?COPD type:?emphysema??Emphysema type:?unspecified? Qualified Code(s):?J43.9 - Emphysema, unspecified ?Code(s): J44.9 - Chronic obstructive pulmonary disease, unspecified ?Status:?Chronic ?Assessment and Plan: Will start on steroids.? Little concern for pneumonia at this point time afebrile.? Monitor white blood cell count. (7) Neuropathy: ?Code(s): G62.9 - Polyneuropathy, unspecified ?Status:?Chronic ?Assessment and Plan: Continue home meds (8) Iron deficiency anemia: ?Qualifiers: ?Iron deficiency anemia type:?unspecified iron deficiency? Qualified Code(s):?D50.9 - Iron deficiency anemia, unspecified ?Code(s): D50.9 - Iron deficie
--- NOTE | 2023-01-01 12:54 | PM.PNCARD ---
Progress Note: A&P Assessment and Plan (1) Acute decompensated heart failure: Code(s): I50.9 - Heart failure, unspecified Status: Acute (2) Hypoxia: Code(s): R09.02 - Hypoxemia Status: Acute (3) Peripheral artery disease: Code(s): I73.9 - Peripheral vascular disease, unspecified Status: Chronic (4) Atrial fibrillation with RVR: Code(s): I48.91 - Unspecified atrial fibrillation Status: Acute (5) PFO (patent foramen ovale): Code(s): Q21.12 - Patent foramen ovale Status: Chronic (6) COPD (chronic obstructive pulmonary disease): Qualifiers: COPD type: emphysema Emphysema type: unspecified Qualified Code(s): J43.9 - Emphysema, unspecified Code(s): J44.9 - Chronic obstructive pulmonary disease, unspecified Status: Chronic Plan BNP has improved from 20,100 to 9,890. Last echo from 08/2022 showed preserved LVEF at 50-55%. Echocardiogram this admission shows LVEF 45-50%. There are some regional wall motion abnormalities. There is severe aortic valve calcification with mild aortic valve stenosis, there is mild-moderate MR, and mild TR. For her cardiomyopathy given HFmrEF, will stop IV diuresis and start low-dose Entresto. Will start Jardiance. Will switch her metoprolol tartrate over to succinate. Will see how her volume status does with the initiation of Entresto, may need PRN Lasix with Entresto. For AFIB, patient currently in sinus. Continue with beta john and Eliquis. Subjective Date/time seen: 01/01/23 12:54 Interval history: Reason for visit: Acute decompensated heart failure HPI: We are consulted for CHF and atrial fibrillation. This is a 67-year-old female who was recently discharged from [place] on 12/20 after being admitted with acute cholecystitis. She had undergone lap fei with repair of bile duct injury on 12/04, and then underwent sphincterotomy and bile duct stent on 12/05, and then repair of bile duct and placement of T-tube on 12/06. During this hospitalization, she was found with new diagnosis of paroxysmal atrial fibrillation, for which we had seen here at that time. Started on Metoprolol for rate control and started on anticoagulation as well. Patient reports that since discharge she was initially doing well. However, past few days she developed shortness of breath and lower extremity edema. ER evaluation showed negative troponins x 2, BNP elevated at 20,100. EKG with sinus rhythm with T-wave inversion in the anterolateral leads, which are new from before. She was in atrial fibrillation with RVR this morning, but denies any palpitations. She has gotten IV Lasix and states she is already feeling better. Date of service 01/01: No acute events overnight. Feeling better. Shortness of breath is better. Lower extremity edema is better. Seen by Dr. Chamberlain with General Surgery who recommends to leave T-tube clamped, plan for repeat cholangiogram later in January. Patient is eating and drinking without issue. CT chest high resolution ordered by Hospitalist is pending. Review of Systems Review of Systems: 8-point ROS obtained. Negative, unless stated in HPI. Exam Const: General: comfortable and no acute distress Other: Appears much older than stated age. HENMT: Mouth: Yes moist mucous membranes Eyes: General: appearance normal, both eyes and all related structures Sclera: sclerae normal Neck: Neck: supple Resp: Effort & Inspection: normal respiratory effort Other: On supplemental oxygen. Decreased breath sounds bilaterally. Cardio: Rate: regular rate Rhythm: regular rhythm Heart sounds: no murmurs GI: GI Palp: Yes Soft to palpation and No Tenderness to palpation present (GI) Skin: General skin exam: normal color Neuro: Speech: normal speech Extrem: Other: 1+ bilateral lower extremity edema Psych: Mental Status: mental status grossly normal Affect: normal affect Objective Data Vital Signs Vital Signs: Vital
[2023-01-01] MEDS: EMPAGLIFLOZIN 10 MG TABLET PO (14:26)
--- NOTE | 2023-01-01 15:38 | PC.NURSE ---
On 01/01/23, the student, [Nicolette Dunne], provided care and completed [facility] documentation on this patient. I have reviewed the student's documentation and agree with the findings.
[2023-01-02] VITALS (15 sets, daily range): BP systolic 109–137; BP diastolic 55–67; PULSE 65–81; RESP 16–18; TEMP 36.3–36.6; O2SAT 90–94
[2023-01-02 05:25] LABS: Basophils Percent Auto 0.2 % (0.2-1.2); Eosinophils Percent Auto 0.3 % (0-4.4); Hematocrit 29.1 % (37.0-47.0); Immature Granulocyte Absolute 0.03 K/mm3 (0.00-0.031); Immature Granulocyte Percent A 0.3 % (0-0.5); Lymphocytes Percent Auto 24.8 % (18.3-44.2); Mean Corpuscular HGB Conc 30.9 g/dl (32-36); Mean Corpuscular Hemoglobin 28.4 pg (26-34); Mean Corpuscular Volume 91.8 fl (80-100); Mean Platelet Volume 10.8 fl (7.4-10.4); Monocytes Absolute Auto 0.6 K/mm3 (0.1-0.6); Monocytes Percent Auto 6.1 % (2.6-8.5); Neutrophils Absolute Auto 6.3 K/mm3 (1.3-6.7); Neutrophils Percent Auto 68.3 % (45.5-73.1); Platelet Count Result 351 k/mm3 (150-375); Red Blood Count 3.17 M/mm3 (4.2-5.4); Red Cell Distribution Width 19.9 % (11.5-14.5); White Blood Count 9.3 K/mm3 (4.5-10.0)
[2023-01-02 05:46] LABS: Chloride 100 mmol/L (98-107)
[2023-01-02 05:57] LABS: Alanine Aminotransferase 14 U/L (6-35); Albumin Level 2.8 g/dL (3.5-5.1); Alkaline Phosphatase 88 U/L (38-126); Anion Gap 2 mmol/L (8-16); Aspartate Amino Transferase 17 U/L (14-36); Bilirubin,Total 0.3 mg/dL (0.2-1.3); Blood Urea Nitrogen 17 mg/dL (7-17); Calcium 7.2 mg/dL (8.4-10.2); Carbon Dioxide 31 mmol/L (22-30); Estimated CRCL calculation 40 ml/min; Estimated Glomerular Filt Rate > 60; Glucose 97 mg/dL (65-110); Potassium 3.3 mmol/L (3.4-5.0); Sodium 133 mmol/L (137-145)
[2023-01-02] MEDS: UMECLIDINIUM BROMIDE 62.5 MCG ELLIPTA 1 PUFF INHALATION (08:02)
[2023-01-02] MEDS: SERTRALINE HCL 50 MG TABLET 100 MG PO (08:25)
[2023-01-02] MEDS: METOPROLOL SUCCINATE EXT REL 100 MG TABCR PO (08:26)
[2023-01-02] MEDS: EMPAGLIFLOZIN 10 MG TABLET PO (08:27)
[2023-01-02] MEDS: APIXABAN 5 MG TABLET PO ×2 (08:27→22:03)
[2023-01-02] MEDS: PREGABALIN (*CRX) 50 MG CAPSULE 100 MG PO (08:27)
[2023-01-02] MEDS: FERROUS SULFATE 324 MG TABLET PO (08:27)
[2023-01-02] MEDS: predniSONE 20 MG TABLET 40 MG PO (08:27)
--- NOTE | 2023-01-02 09:07 | P.CDI_ITS ---
CDI Query Clarification Request Acute on chronic congestive heart failure, systolic <Li Bahena MD - Last Filed: 01/02/23 16:28> Clarified Diagnosis Clarified Diagnosis: Documented history of CHF. CHF noted on assessment and plan. PT receiving IV Lasix. BNP elevated on 12/31/22 lab work. BLE edema noted. Pt with complaints of shortness of breath. Please specify type and acuity of heart failure if known. * Acute * Chronic * Acute on Chronic * Unknown * Systolic * Diastolic * Combined Systolic and Diastolic * Unknown <Stephania Huerta RN - Last Filed: 01/02/23 09:11>
[2023-01-02] MEDS: oxyCODONE HCL (*CRX) 5 MG TAB IR 10 MG PO ×3 (10:00→22:03)
[2023-01-02] MEDS: SACUBITRIL/VALSARTAN 24-26 MG TABLET 1 TAB PO ×2 (10:00→22:03)
[2023-01-02] MEDS: FUROSEMIDE INJ 40 MG/4 ML VIAL IV PUSH (10:03)
--- NOTE | 2023-01-02 10:17 | PM.PNCARD ---
Progress Note: A&P Assessment and Plan (1) Acute decompensated heart failure: Code(s): I50.9 - Heart failure, unspecified Status: Acute (2) Hypoxia: Code(s): R09.02 - Hypoxemia Status: Acute (3) Peripheral artery disease: Code(s): I73.9 - Peripheral vascular disease, unspecified Status: Chronic (4) Atrial fibrillation with RVR: Code(s): I48.91 - Unspecified atrial fibrillation Status: Acute (5) PFO (patent foramen ovale): Code(s): Q21.12 - Patent foramen ovale Status: Chronic (6) COPD (chronic obstructive pulmonary disease): Qualifiers: COPD type: emphysema Emphysema type: unspecified Qualified Code(s): J43.9 - Emphysema, unspecified Code(s): J44.9 - Chronic obstructive pulmonary disease, unspecified Status: Chronic Plan BNP has improved from 20,100 to 9,890. Last echo from 08/2022 showed preserved LVEF at 50-55%. Echocardiogram this admission shows LVEF 45-50%. There are some regional wall motion abnormalities. There is severe aortic valve calcification with mild aortic valve stenosis, there is mild-moderate MR, and mild TR. For her cardiomyopathy with HFmrEF, start low-dose Entresto. Will start Jardiance. Will switch her metoprolol tartrate over to succinate. Will see how her volume status does with the initiation of Entresto, may need PRN Lasix with Entresto. Lasix 40mg IV x 1 given this morning due to worsened shortness of breath and increased oxygen requirements - CT from yesterday evening showed small pleural effusions. Monitor I/Os. For AFIB, patient currently in sinus. Continue with beta john and Eliquis. Subjective Date/time seen: 01/02/23 10:17 Interval history: Reason for visit: Acute decompensated heart failure HPI: We are consulted for CHF and atrial fibrillation. This is a 67-year-old female who was recently discharged from [place] on 12/20 after being admitted with acute cholecystitis. She had undergone lap fei with repair of bile duct injury on 12/04, and then underwent sphincterotomy and bile duct stent on 12/05, and then repair of bile duct and placement of T-tube on 12/06. During this hospitalization, she was found with new diagnosis of paroxysmal atrial fibrillation, for which we had seen here at that time. Started on Metoprolol for rate control and started on anticoagulation as well. Patient reports that since discharge she was initially doing well. However, past few days she developed shortness of breath and lower extremity edema. ER evaluation showed negative troponins x 2, BNP elevated at 20,100. EKG with sinus rhythm with T-wave inversion in the anterolateral leads, which are new from before. She was in atrial fibrillation with RVR this morning, but denies any palpitations. She has gotten IV Lasix and states she is already feeling better. Date of service 01/01: No acute events overnight. Feeling better. Shortness of breath is better. Lower extremity edema is better. Seen by Dr. Chamberlain with General Surgery who recommends to leave T-tube clamped, plan for repeat cholangiogram later in January. Patient is eating and drinking without issue. CT chest high resolution ordered by Hospitalist is pending. Date of service 01/02: Patient had worsening shortness of breath early this morning. Oxygen requirements went up. No chest pain. No lower extremity edema. Blood pressure okay this morning. CT chest high res showed severe emphysema and small pleural effusions. Review of Systems Review of Systems: 8-point ROS obtained. Negative, unless stated in HPI. Exam Const: General: comfortable and no acute distress Other: Appears much older than stated age. HENMT: Mouth: Yes moist mucous membranes Eyes: General: appearance normal, both eyes and all related structures Sclera: sclerae normal Neck: Neck: supple Resp: Effort & Inspection: normal respiratory effort Other: On supplemental oxygen. Decreased breath sounds bilaterally. C
[2023-01-02] MEDS: BETAMETHASONE/CLOTRIMAZOLE CR 45 GM TUBE 1 APPLIC TOPICAL ×2 (12:03→22:04)
--- NOTE | 2023-01-02 13:29 | PM.IMPN ---
Progress Note: A&P Assessment and Plan (1) Hypoxia: Code(s): R09.02 - Hypoxemia Status: Acute Assessment and Plan: Likely related to CHF exacerbation. Echo pending. Diuretics (2) Atrial fibrillation with RVR: Code(s): I48.91 - Unspecified atrial fibrillation Status: Acute Assessment and Plan: Now appears to be in sinus tach. Monitor. Continue her home medications. (3) Opioid dependence with current use: Code(s): F11.20 - Opioid dependence, uncomplicated Status: Chronic (4) PFO (patent foramen ovale): Code(s): Q21.12 - Patent foramen ovale Status: Chronic (5) Hypertension: Qualifiers: Hypertension type: primary hypertension Qualified Code(s): I10 - Essential (primary) hypertension Code(s): I10 - Essential (primary) hypertension Status: Chronic Assessment and Plan: Continue blood pressure medicines (6) COPD (chronic obstructive pulmonary disease): Qualifiers: COPD type: emphysema Emphysema type: unspecified Qualified Code(s): J43.9 - Emphysema, unspecified Code(s): J44.9 - Chronic obstructive pulmonary disease, unspecified Status: Chronic Assessment and Plan: Will start on steroids. Little concern for pneumonia at this point time afebrile. Monitor white blood cell count. (7) Neuropathy: Code(s): G62.9 - Polyneuropathy, unspecified Status: Chronic Assessment and Plan: Continue home meds (8) Iron deficiency anemia: Qualifiers: Iron deficiency anemia type: unspecified iron deficiency Qualified Code(s): D50.9 - Iron deficiency anemia, unspecified Code(s): D50.9 - Iron deficiency anemia, unspecified Status: Chronic Assessment and Plan: Continue home meds (9) Congestive heart failure: Code(s): I50.9 - Heart failure, unspecified Status: Acute Assessment and Plan: Think this is causing most of her hypoxia and shortness of breath. Continue diuretic therapy. Echo pending (10) Depression: Code(s): F32.A - Depression, unspecified Status: Chronic Assessment and Plan: Continue home Plan Assessment and plan (1) Acute on chronic respiratory failure On 2.5 liters at baseline, now on 5liters Likely related to CHF exacerbation r/o PNA CXR showed possible PNA, CT chest showed small pleural effusions worse from 12/13/2022 with severe emphysema Echo showed EF 45-50%.?continue diuretics CHF exacerbation, systolic with Mildly reduced ejection, EF reduced from 50-55% in 08/2022 to 45-50% now Continue diuretics per cardiology Entresto and Jardiance per cardiology cardiology following (2) Atrial fibrillation with RVR Continue home metoprolol and eliquis cardiology following (3) Opioid dependence with current use: (4) PFO (patent foramen ovale): ? ? ? (5) Hypertension: Continue blood pressure medicines (6) COPD (chronic obstructive pulmonary disease): Will start on steroids Symbicort and (7) Neuropathy: ?Code(s): G62.9 - Polyneuropathy, unspecified (8) Iron deficiency anemia: Continue home meds Depression: Continue home DVT prophylaxis on Eliquis Subjective Date/time seen: 01/02/23 13:29 Interval history: Reason for visit: Acute decompensated heart failure HPI: We are consulted for CHF and atrial fibrillation. This is a 67-year-old female who was recently discharged from [place] on 12/20 after being admitted with acute cholecystitis. She had undergone lap fei with repair of bile duct injury on 12/04, and then underwent sphincterotomy and bile duct stent on 12/05, and then repair of bile duct and placement of T-tube on 12/06. During this hospitalization, she was found with new diagnosis of paroxysmal atrial fibrillation, for which we had seen here at that time. Started on Metoprolol for rate control and started on anticoagulation as well. Patient reports that since
--- NOTE | 2023-01-02 15:31 | PC.NURSE ---
On 01/02/23, the student, [Pollo Friend], provided care and completed [facility] documentation on this patient. I have reviewed the student's documentation and agree with the findings.
[2023-01-02] MEDS: FLUTICASONE/SALMETEROL 115-21 MCG INHALER 1 PUFF 2 PUFF INHALATION (21:02)
[2023-01-03] VITALS (14 sets, daily range): BP systolic 104–136; BP diastolic 53–64; PULSE 60–76; RESP 14–18; TEMP 36.3–37.1; O2SAT 91–93
[2023-01-03 05:21] LABS: Basophils Percent Auto 0.3 % (0.2-1.2); Eosinophils Absolute Auto 0.1 K/mm3 (0-0.3); Eosinophils Percent Auto 0.7 % (0-4.4); Hematocrit 32.8 % (37.0-47.0); Hemoglobin 10.1 g/dL (12.0-15.0); Immature Granulocyte Absolute 0.03 K/mm3 (0.00-0.031); Immature Granulocyte Percent A 0.3 % (0-0.5); Lymphocytes Absolute Auto 3.11 K/mm3 (0.9-3.2); Lymphocytes Percent Auto 32.5 % (18.3-44.2); Mean Corpuscular HGB Conc 30.8 g/dl (32-36); Mean Corpuscular Hemoglobin 28.6 pg (26-34); Mean Corpuscular Volume 92.9 fl (80-100); Mean Platelet Volume 10.6 fl (7.4-10.4); Monocytes Absolute Auto 0.5 K/mm3 (0.1-0.6); Monocytes Percent Auto 5.1 % (2.6-8.5); Neutrophils Absolute Auto 5.8 K/mm3 (1.3-6.7); Neutrophils Percent Auto 61.1 % (45.5-73.1); Platelet Count Result 367 k/mm3 (150-375); Red Blood Count 3.53 M/mm3 (4.2-5.4); Red Cell Distribution Width 19.7 % (11.5-14.5); White Blood Count 9.6 K/mm3 (4.5-10.0)
[2023-01-03 05:37] LABS: Alanine Aminotransferase 14 U/L (6-35); Albumin Level 2.7 g/dL (3.5-5.1); Alkaline Phosphatase 92 U/L (38-126); Anion Gap 5 mmol/L (8-16); Aspartate Amino Transferase 17 U/L (14-36); Bilirubin,Total 0.3 mg/dL (0.2-1.3); Blood Urea Nitrogen 23 mg/dL (7-17); Calcium 7.5 mg/dL (8.4-10.2); Carbon Dioxide 32 mmol/L (22-30); Chloride 101 mmol/L (98-107); Estimated CRCL calculation 45 ml/min; Estimated Glomerular Filt Rate > 60; Glucose 91 mg/dL (65-110); Potassium 3.7 mmol/L (3.4-5.0); Sodium 138 mmol/L (137-145)
[2023-01-03] MEDS: FLUTICASONE/SALMETEROL 115-21 MCG INHALER 1 PUFF 2 PUFF INHALATION (08:14)
[2023-01-03] MEDS: UMECLIDINIUM BROMIDE 62.5 MCG ELLIPTA 1 PUFF INHALATION (08:14)
[2023-01-03 08:34] LABS: NT Pro B Type Natriuretic Pept 4770 pg/mL (19.9-100)
--- NOTE | 2023-01-03 08:51 | PM.PNCARD ---
Progress Note: A&P Assessment and Plan (1) Acute decompensated heart failure: Code(s): I50.9 - Heart failure, unspecified Status: Acute (2) Hypoxia: Code(s): R09.02 - Hypoxemia Status: Acute (3) Peripheral artery disease: Code(s): I73.9 - Peripheral vascular disease, unspecified Status: Chronic (4) Atrial fibrillation with RVR: Code(s): I48.91 - Unspecified atrial fibrillation Status: Acute (5) PFO (patent foramen ovale): Code(s): Q21.12 - Patent foramen ovale Status: Chronic (6) COPD (chronic obstructive pulmonary disease): Qualifiers: COPD type: emphysema Emphysema type: unspecified Qualified Code(s): J43.9 - Emphysema, unspecified Code(s): J44.9 - Chronic obstructive pulmonary disease, unspecified Status: Chronic Plan BNP has improved from 20,100 to 9,890. Last echo from 08/2022 showed preserved LVEF at 50-55%. Echocardiogram this admission shows LVEF 45-50%. There are some regional wall motion abnormalities. There is severe aortic valve calcification with mild aortic valve stenosis, there is mild-moderate MR, and mild TR. Can consider outpatient stress testing For her cardiomyopathy with HFmrEF, continue low-dose Entresto, jardiance, and metoprolol succinate. For AFIB, patient currently in sinus. Continue with beta john and Eliquis. For her peripheral arterial disease, will send referral to Dr. Casanova for evaluation for possible intervention. Subjective Date/time seen: 01/03/23 08:51 Interval history: Reason for visit: Acute decompensated heart failure HPI: We are consulted for CHF and atrial fibrillation. This is a 67-year-old female who was recently discharged from [place] on 12/20 after being admitted with acute cholecystitis. She had undergone lap fei with repair of bile duct injury on 12/04, and then underwent sphincterotomy and bile duct stent on 12/05, and then repair of bile duct and placement of T-tube on 12/06. During this hospitalization, she was found with new diagnosis of paroxysmal atrial fibrillation, for which we had seen here at that time. Started on Metoprolol for rate control and started on anticoagulation as well. Patient reports that since discharge she was initially doing well. However, past few days she developed shortness of breath and lower extremity edema. ER evaluation showed negative troponins x 2, BNP elevated at 20,100. EKG with sinus rhythm with T-wave inversion in the anterolateral leads, which are new from before. She was in atrial fibrillation with RVR this morning, but denies any palpitations. She has gotten IV Lasix and states she is already feeling better. Date of service 01/01: No acute events overnight. Feeling better. Shortness of breath is better. Lower extremity edema is better. Seen by Dr. Chamberlain with General Surgery who recommends to leave T-tube clamped, plan for repeat cholangiogram later in January. Patient is eating and drinking without issue. CT chest high resolution ordered by Hospitalist is pending. Date of service 01/02: Patient had worsening shortness of breath early this morning. Oxygen requirements went up. No chest pain. No lower extremity edema. Blood pressure okay this morning. CT chest high res showed severe emphysema and small pleural effusions. Date of service 01/03/2023: Feeling much better today. No increased shortness of breath. No chest pain, no edema. Probably will be discharged today. Exam Const: General: comfortable and no acute distress Other: Appears much older than stated age. HENMT: Mouth: Yes moist mucous membranes Eyes: General: appearance normal, both eyes and all related structures Sclera: sclerae normal Neck: Neck: supple Resp: Effort & Inspection: normal respiratory effort Auscultation: clear to auscultation bilaterally, no crackles, no rales, no wheezes and diminished lung sounds Cardio: Rate: regular rate Rhythm: regular rhythm Heart sounds: Murm
[2023-01-03] MEDS: METOPROLOL SUCCINATE EXT REL 100 MG TABCR PO (09:02)
[2023-01-03] MEDS: FERROUS SULFATE 324 MG TABLET PO (09:03)
[2023-01-03] MEDS: SACUBITRIL/VALSARTAN 24-26 MG TABLET 1 TAB PO ×2 (09:03→20:30)
[2023-01-03] MEDS: EMPAGLIFLOZIN 10 MG TABLET PO (09:03)
[2023-01-03] MEDS: APIXABAN 5 MG TABLET PO ×2 (09:03→20:30)
[2023-01-03] MEDS: SERTRALINE HCL 50 MG TABLET 100 MG PO (09:03)
[2023-01-03] MEDS: BETAMETHASONE/CLOTRIMAZOLE CR 45 GM TUBE 1 APPLIC TOPICAL ×2 (09:04→20:30)
[2023-01-03] MEDS: PREGABALIN (*CRX) 50 MG CAPSULE 100 MG PO (09:07)
[2023-01-03] MEDS: oxyCODONE HCL (*CRX) 5 MG TAB IR 10 MG PO ×3 (09:15→22:58)
--- NOTE | 2023-01-03 10:39 | PM.CNPUL ---
Assessment and Plan Assessment and plan (1) COPD (chronic obstructive pulmonary disease): Qualifiers: COPD type: emphysema Emphysema type: unspecified Qualified Code(s): J43.9 - Emphysema, unspecified Code(s): J44.9 - Chronic obstructive pulmonary disease, unspecified Status: Chronic Assessment and Plan: 67-year-old woman with a history of COPD (23 PY, quit 10/2022), PFO by echo on 08/2022, hypertension, depression, left renal mass, and chronic back pain s/p L4-5 fusion with right foot drop.? Patient has COPD with severe apical predominant panlobular emphysema on first CT scan in our system from 09/15/2022,? hypoxic respiratory failure with home O2 assessment on 09/16/2022 requiring 2 L at rest and 2 L with activity, on home incruse ellipta. Patient states she has smoked from age 21 to current at 1/2 pack per day for total of 23 pack years. patient was admitted with acute cholecystitis and had 1 episode of worsening hypoxemic respiratory failure when she was delirious and fighting with the staff. When she was sedated her oxygen requirements went from 15 L non-rebreather to 3 L nasal cannula. Discharged on no oxygen at rest and 2 L with activity. Patient did well at home on increased Ellipta and then developed pedal edema, paroxysmal nocturnal dyspnea and shortness of breath. This happened 4 nights in a row and during the day she had no respiratory complaints. She denied fever, chills, rigors, cough or change in her chronic phlegm production of 1 time thick green sputum a day. She did develop lethargy. She was admitted on 12/30/1999 23 with fluid overload and no evidence of bronchitis, pneumonia, or COPD exacerbation. The patient does have underlying COPD but I believe the majority of her acute decompensation is related to fluid overload. I will discontinue the oral prednisone. The patient has had no outpatient exacerbations and I recommend long-acting beta agonist -long-acting muscarinic antagonist without inhaled glucocorticoids. Will start Anoro Ellipta. She does not need antibiotics from a pulmonary perspective. Patient is not smoking and not exposed to secondhand smoke at this time. Patient has panlobular emphysema with 23 pack year tobacco use. I will send alpha 1 phenotype an alpha 1 anti trypsin level. On discharge patient should be discharged on these pulmonary medicines: Beta agonist and muscarinic antagonist that insurance will cover (Anoro Ellipta 62.5/25 at 1 puff Q day, stiolto respimat 2.5/2.5 at 1 puff BID, bevespi aerosphere 9 mcg/4.8 at 2 puffs BID, combivent respimat at 2 puffs Q 4 HR or separate albuterol and atrovent inhalers at 2 puffs Q 4 HR) Rescue albuterol 2 puffs q.4 hours p.r.n. shortness of breath or wheezing Patient will need a home O2 assessment prior to discharge. If the patient remains in the hospital overnight I have ordered an overnight oximetry on 3 L nasal cannula (goal saturations less than or equal to 88% at less than 5 minutes). If she is discharged today, she should wear oxygen at night at a level that is required with activity. If desired patient can see us in the Pulmonary Clinic and I gave her her business card and will inform our process controls technician. She would need outpatient PFTs. Discussed with Dr. Bahena. Will sign off. Call with questions. (2) PFO (patent foramen ovale): Code(s): Q21.12 - Patent foramen ovale Status: Chronic Assessment and Plan: Patient has a known PFO and this may be contributing to her hypoxemia. Anything that increases her right-sided pressures has the potential to worsen her shunt and worsen her systemic hypoxemia. Patient has COPD which may also be giving her pulmonary hypertension. patient has fluid overload and her LV dysfunction may be causing pulmonary hypertension. She also has mild to moderate mitral regurgitation. Her RVSP has increased from 43 on 09/16/2022 to 54 on 01/01/2022. Cardiology is following and
--- NOTE | 2023-01-03 11:25 | PM.IMPN ---
Progress Note: A&P Assessment and Plan (1) Hypoxia: Code(s): R09.02 - Hypoxemia Status: Acute Assessment and Plan: Likely related to CHF exacerbation. Echo pending. Diuretics (2) Atrial fibrillation with RVR: Code(s): I48.91 - Unspecified atrial fibrillation Status: Acute Assessment and Plan: Now appears to be in sinus tach. Monitor. Continue her home medications. (3) Opioid dependence with current use: Code(s): F11.20 - Opioid dependence, uncomplicated Status: Chronic (4) PFO (patent foramen ovale): Code(s): Q21.12 - Patent foramen ovale Status: Chronic (5) Hypertension: Qualifiers: Hypertension type: primary hypertension Qualified Code(s): I10 - Essential (primary) hypertension Code(s): I10 - Essential (primary) hypertension Status: Chronic Assessment and Plan: Continue blood pressure medicines (6) COPD (chronic obstructive pulmonary disease): Qualifiers: COPD type: emphysema Emphysema type: unspecified Qualified Code(s): J43.9 - Emphysema, unspecified Code(s): J44.9 - Chronic obstructive pulmonary disease, unspecified Status: Chronic Assessment and Plan: Will start on steroids. Little concern for pneumonia at this point time afebrile. Monitor white blood cell count. (7) Neuropathy: Code(s): G62.9 - Polyneuropathy, unspecified Status: Chronic Assessment and Plan: Continue home meds (8) Iron deficiency anemia: Qualifiers: Iron deficiency anemia type: unspecified iron deficiency Qualified Code(s): D50.9 - Iron deficiency anemia, unspecified Code(s): D50.9 - Iron deficiency anemia, unspecified Status: Chronic Assessment and Plan: Continue home meds (9) Congestive heart failure: Code(s): I50.9 - Heart failure, unspecified Status: Acute Assessment and Plan: Think this is causing most of her hypoxia and shortness of breath. Continue diuretic therapy. Echo pending (10) Depression: Code(s): F32.A - Depression, unspecified Status: Chronic Assessment and Plan: Continue home Plan Assessment and plan (1) Acute on chronic respiratory failure On 2.5 liters at baseline, now on 5liters Likely related to CHF exacerbation r/o PNA CXR showed possible PNA, CT chest showed small pleural effusions worse from 12/13/2022 with severe emphysema Echo showed EF 45-50%.?continue diuretics Pulmonology consulted Will titrate oxygen today and possibly discharge tomorrow CHF exacerbation, systolic with Mildly reduced ejection, EF reduced from 50-55% in 08/2022 to 45-50% now Diuretics om hold per cardiology Metoprolol, Entresto and Jardiance per cardiology cardiology planning outpatient stress test cardiology on board (2) Atrial fibrillation with RVR Continue home metoprolol and eliquis cardiology following (3) Opioid dependence with current use: (4) PFO (patent foramen ovale): ? ? ? (5) Hypertension: Continue blood pressure medicines (6) COPD (chronic obstructive pulmonary disease): Will start on steroids Symbicort and (7) Neuropathy: ?Code(s): G62.9 - Polyneuropathy, unspecified (8) Iron deficiency anemia: Continue home meds Depression: Continue home DVT prophylaxis on Eliquis Subjective Date/time seen: 01/03/23 11:25 Interval history: Reason for visit: Acute decompensated heart failure Patient noted much improvement today and denies any SOB unliek the past 2 nights.still requiring 3 liters of Oxygen. Review of Systems Review of Systems: Narrative:?? alert and oriented x3 HENMT:?? Other: oral mucosa moist Eyes:?? General: appearanc e normal, both eye s and all related structures Neck:?? Neck: supple and n
[2023-01-04] VITALS (7 sets, daily range): BP systolic 136; BP diastolic 73; PULSE 56–82; RESP 18; TEMP 36.1; O2SAT 91–93
[2023-01-04 06:23] LABS: Basophils Absolute Auto 0.1 K/mm3 (0.0-0.1); Basophils Percent Auto 0.6 % (0.2-1.2); Eosinophils Absolute Auto 0.3 K/mm3 (0-0.3); Eosinophils Percent Auto 3.2 % (0-4.4); Hematocrit 33.6 % (37.0-47.0); Hemoglobin 10.3 g/dL (12.0-15.0); Immature Granulocyte Absolute 0.02 K/mm3 (0.00-0.031); Immature Granulocyte Percent A 0.2 % (0-0.5); Lymphocytes Absolute Auto 3.21 K/mm3 (0.9-3.2); Lymphocytes Percent Auto 32.5 % (18.3-44.2); Mean Corpuscular HGB Conc 30.7 g/dl (32-36); Mean Corpuscular Hemoglobin 28.7 pg (26-34); Mean Corpuscular Volume 93.6 fl (80-100); Mean Platelet Volume 10.4 fl (7.4-10.4); Monocytes Absolute Auto 0.6 K/mm3 (0.1-0.6); Monocytes Percent Auto 6.2 % (2.6-8.5); Neutrophils Absolute Auto 5.7 K/mm3 (1.3-6.7); Neutrophils Percent Auto 57.3 % (45.5-73.1); Platelet Count Result 393 k/mm3 (150-375); Red Blood Count 3.59 M/mm3 (4.2-5.4); Red Cell Distribution Width 19.8 % (11.5-14.5); White Blood Count 9.9 K/mm3 (4.5-10.0)
[2023-01-04 06:30] LABS: Alanine Aminotransferase 14 U/L (6-35); Albumin Level 2.7 g/dL (3.5-5.1); Alkaline Phosphatase 86 U/L (38-126); Anion Gap 1 mmol/L (8-16); Aspartate Amino Transferase 19 U/L (14-36); Bilirubin,Total 0.4 mg/dL (0.2-1.3); Blood Urea Nitrogen 22 mg/dL (7-17); Calcium 7.5 mg/dL (8.4-10.2); Carbon Dioxide 32 mmol/L (22-30); Chloride 99 mmol/L (98-107); Estimated CRCL calculation 39 ml/min; Estimated Glomerular Filt Rate > 60; Glucose 83 mg/dL (65-110); Potassium 3.7 mmol/L (3.4-5.0); Sodium 132 mmol/L (137-145)
[2023-01-04] MEDS: SACUBITRIL/VALSARTAN 24-26 MG TABLET 1 TAB PO (08:52)
[2023-01-04] MEDS: FERROUS SULFATE 324 MG TABLET PO (08:52)
[2023-01-04] MEDS: METOPROLOL SUCCINATE EXT REL 100 MG TABCR PO (08:52)
[2023-01-04] MEDS: SERTRALINE HCL 50 MG TABLET 100 MG PO (08:53)
[2023-01-04] MEDS: APIXABAN 5 MG TABLET PO (08:53)
[2023-01-04] MEDS: EMPAGLIFLOZIN 10 MG TABLET PO (08:53)
[2023-01-04] MEDS: BETAMETHASONE/CLOTRIMAZOLE CR 45 GM TUBE 1 APPLIC TOPICAL (08:53)
[2023-01-04] MEDS: UMECLIDINIUM/VILANTEROL 62.5-25 MCG ELLIPTA 1 PUFF INHALATION (09:01)
[2023-01-04] MEDS: oxyCODONE HCL (*CRX) 5 MG TAB IR 10 MG PO (09:02)
[2023-01-04] MEDS: PREGABALIN (*CRX) 50 MG CAPSULE 100 MG PO (09:03)
--- NOTE | 2023-01-04 11:23 | PM.DS ---
DS: Admitting Diagnosis Discharge Date 01/04/23 Admitting Diagnosis Acute on chronic respiratory failure DS: Discharge Diagnosis Discharge Diagnosis (1) Acute decompensated heart failure: Code(s): I50.9 - Heart failure, unspecified Status: Acute DS: Summary Hospital Course Hospital Course: Patient presented to the ER on account of SOB, CXR showed Pulm edema and was started on Lasix, ECHo showed ef 45-50% which is new. Cardiology was involved in care and started patient on Entresto, jardiance and changed metoprolol to sucinate 100mg, diuretics was eventually stopped. CT scan showed severe emphysema and ECHO showed PFO with increased Pulmonary arterial systolic pressure of 54mmHg. Pulmonology was consulted evaluated patient and adjusted bronchodilator to ANoro, Bevespi, Stiolto, and Combivent and recommended evalation for PFO for possible surgery given elevated pulm pressure. Patient will f/u with cardiology for further ischemic evaluation and cardiology will further care for the PFo with elevated right-sdided pressure. PAtient will follow up with PCP in 3-5 days and call Pulmmonology for follow up. Time Spent with Patient Time attestation: Total time spent providing and/or coordinating discharge services: DS: Data Data Completed and Pending Labs on day of discharge: Labs from last 24 hours 01/04/23 01/04/23 05:50 05:50 WBC 9.9 RBC 3.59 L Hgb 10.3 L Hct 33.6 L MCV 93.6 MCH 28.7 MCHC 30.7 L RDW 19.8 H Plt Count 393 H MPV 10.4 Immature Gran % (Auto) 0.2 Neut % (Auto) 57.3 Lymph % (Auto) 32.5 Carlton % (Auto) 6.2 Eos % (Auto) 3.2 Baso % (Auto) 0.6 Lymph # (Auto) 3.21 H Carlton # (Auto) 0.6 Eos # (Auto) 0.3 Baso # (Auto) 0.1 Abs Immat Gran (auto) 0.02 Absolute Neuts (auto) 5.7 Absolute Nucleated RBC 0.0 Nucleated RBC % 0.0 Sodium 132 L Potassium 3.7 Chloride 99 Carbon Dioxide 32 H Anion Gap 1 L BUN 22 H Creatinine 0.90 Estim Creat Clear Calc 39 Estimated GFR > 60 Glucose 83 Calcium 7.5 L Total Bilirubin 0.4 AST 19 ALT 14 Alkaline Phosphatase 86 Total Protein 6.0 L Albumin 2.7 L Discharge Plan Discharge Attending physician on discharge: Li Bahena Consulting providers: Kinza Lima ; Casimiro Chamberlain ; Ochoa Acevedo Discharging Clinician: Li Bahena Anticipated Discharge Date/Time: 01/04/23 11:08 Patient Disposition: Home, Self-Care Activity: as tolerated Diet: as tolerated Patient Instructions: Antibiotic Form, Empagliflozin (By mouth), Sacubitril/Valsartan (By mouth), Heart Failure (GEN) Stand Alone Forms: General Discharge Information Follow-up/Referrals: Kinza Lima, EARL [Advanced Practice Nurse] - (You have an appointment on 01/15/23 at 9:30. Please arrive at 9:15.) Ochoa Acevedo MD [Physician] - (call for follow up as instructed ) Discharge Medications: New metoprolol succinate [Toprol XL] 100 mg Tablet Extended Release 24 Hr 100 mg PO QAM Qty: 30 0RF Entresto 24-26 mg Tablet 1 tablet PO Q12HR Qty: 30 0RF Stiolto Respimat 2.5-2.5 mcg/actuation mist 1 puff inhalation DAILY Qty: 4 3RF Jardiance 10 mg Tablet 10 mg PO DAILY Qty: 30 0RF Bevespi Aerosphere 9-4.8 mcg HFA aerosol inhaler 2 puff inhalation BID Qty: 10.7 4RF Combivent Respimat 20-100 mcg/actuation mist 1 puff inhalation Q4H Qty: 4 2RF Anoro Ellipta 62.5-25 mcg/actuation blister with device 1 inh inhalation DAILY Qty: 60 0RF Continued ferrous sulfate [FeroSul] 325 mg (65 mg iron) tablet 325 mg PO DAILY Eliquis 5 mg tablet 5 mg PO BID Qty: 60 0RF Rx Instructions: START ON 12/22/22 oxycodone 10 mg tablet 10 mg PO TID PRN (Reason: Pain (Scale Score 7-10)) Qty: 7 0RF sertraline 100 mg tablet 100 mg PO DAILY pregabalin 100 mg capsule 100 mg PO DAILY Discontinued Incruse Ellipta 62.5 mcg/actuation blister with device
[2023-01-09 14:03] LABS: Alpha-1-Antitrypsin, QN 261 mg/dL (83-199)
== END 2023-01-04 14:55 | disposition home health service (06) | DRG 291 ==
LOC: ANHED 07:03 → ANH2MED 07:29
PROVIDERS: Chiropractor; Internal Medicine Pulmonary Disease; Admitting Provider Internal Medicine; Emergency Provider Emergency Medicine; PCP Registered Nurse; Visit Provider Internal Medicine
DX: I11.0 Hypertensive heart disease with heart failure (principal); I50.23 Acute on chronic systolic (congestive) heart failure; J96.21 Acute and chronic respiratory failure with hypoxia; F11.20 Opioid dependence, uncomplicated; Q21.12 Patent foramen ovale; K83.8 Other specified diseases of biliary tract; I48.91 Unspecified atrial fibrillation; J43.9 Emphysema, unspecified; Z20.822 Contact with and (suspected) exposure to COVID-19; N32.81 Overactive bladder; I35.0 Nonrheumatic aortic (valve) stenosis; G62.9 Polyneuropathy, unspecified; D50.9 Iron deficiency anemia, unspecified; M21.379 Foot drop, unspecified foot; F17.210 Nicotine dependence, cigarettes, uncomplicated; F32.A Depression, unspecified; Z98.1 Arthrodesis status; Z90.49 Acquired absence of other specified parts of digestive tract
CPT/HCPCS: 36415; 36600; 71045; 71250; 80048; 80053; 82103; 82104; 82805; 83880; 84484; 85025; 85610; 85730; 87637; 93005; 93306; 94640; 96374; 96376; 97161; 97165; 99285; A9270; G0378; J1940; J7512

== ENCOUNTER 2023-01-15 11:52 | Outpatient (CLI) | payer MEDICARE, SELFPAY ==
--- NOTE | ~2023-01-15 | NM_ITS ---
EXAMINATION: NM hepatobiliary wo pharm DATE: 01/15/2023 13:30 INDICATION: Bile duct injury status post repair. COMPARISON: Hepatobiliary scintigraphy 12/03/2022 TECHNIQUE: 5 mCi Tc-99m mebrofenin (Choletec) was administered intravenously. Scintigraphic images o f the abdomen were obtained for one hour. FINDINGS: There is normal clearance of radiotracer from the blood pool. There is homogeneous tracer u ptake by the liver. Activity progresses to the bowel. The gallbladder is absent. There is no bile le ak. IMPRESSION: 1. No bile leak. Reviewed, dictated and finalized at location A. UCT ANALYST IMPRESSION: 1. No bile leak.
== END 2023-01-15 11:53 | disposition home or self-care (01) ==
PROVIDERS: PCP Registered Nurse; Visit Provider Surgery
DX: K83.8 Other specified diseases of biliary tract (principal)
CPT/HCPCS: 78226; A9537

== ENCOUNTER 2023-01-29 16:03 | Emergency (ER) | payer MEDICARE, SELFPAY ==
[2023-01-29] VITALS (41 sets, daily range): BP systolic 174–194; BP diastolic 80–113; PULSE 71–118; RESP 15–26; TEMP 36.9; O2SAT 90–96
--- NOTE | ~2023-01-29 | CT_ITS ---
EXAMINATION: CT abdomen pelvis w con INDICATION: Left lower quadrant tenderness TECHNIQUE: Computed tomographic images of the abdomen and pelvis were obtained after the administrati on of 100 cc of Omnipaque 350 intravenous contrast. The dose-length product (DLP) was 226.38 mGy-cm. Automated exposure control and iterative reconstruction technique were employed. COMPARISON: CT, 12/12/2022 FINDINGS: Minimal dependent atelectasis is present in the lung bases. The heart size is normal. There is moderate emphysema. There are changes of interval cholecystectomy. The liver, spleen, pancreas, a nd adrenal glands are normal. Cysts of the kidneys measure up to 1.8 cm on the left. There is a left groin lymphadenopathy. There is calcified atherosclerosis of the aorta and many of the other arteries . Streak artifact from lumbar fusion and left hip arthroplasty limits evaluation of the pelvis. No fr ee intraperitoneal gas or evidence of bowel obstruction. There are unchanged burst fractures of T12 a nd L1. There are changes of anterior posterior fusion from L4 through S1. Healed pelvic fractures are noted. IMPRESSION: 1. No CT correlate for the patient's symptoms. 2. Stable left groin lymphadenopathy of unclear significance or etiology. Reviewed, dictated and finalized at location F. PILOT
--- NOTE | ~2023-01-29 | CT_ITS ---
EXAMINATION: CT brain wo con INDICATION: Altered mental status COMPARISON: None TECHNIQUE: Standard unenhanced head CT. The dose-length product (DLP) was 605.33 mGy-cm. The mA was a djusted according to patient size. Iterative reconstruction technique was employed. FINDINGS: There is no acute intraparenchymal hemorrhage. No evidence of mass lesion. No evidence of a cute infarction. There is mild periventricular and subcortical hypodensity probably related to small vessel ischemic disease. There is mild prominence of the sulci and ventricles related to cerebral atr ophy. Intracranial calcified cerebral atherosclerosis is noted. There are no extra-axial collections. There is no mass effect or midline shift. Changes in the globes are likely from ocular lens surgery. The visualized sinuses and mastoid air cells are well aerated. IMPRESSION: 1. No acute intracranial abnormality. 2. Age related findings. Reviewed, dictated and finalized at location F. ITALITY INTERN
--- NOTE | ~2023-01-29 | XR_ITS ---
EXAMINATION: XR chest 1V portable INDICATION: Cough TECHNIQUE: Portable AP chest at 1725 hours COMPARISON: 01/03/2023 FINDINGS: The lungs are free of acute opacities. There is severe emphysema. No pleural effusion or pn eumothorax. The cardiomediastinal silhouette is normal. IMPRESSION: 1. No acute cardiopulmonary abnormality. Reviewed, dictated and finalized at location F. F EXECUTIVE
--- NOTE | 2023-01-29 16:19 | ECG_ITS ---
Measurements Intervals [place] Rate: 90 P: 78 IA: 159 QRS: -7 QRSD: 92 T: 74 QT: 375 QTc: 459 Interpretive Statements SINUS RHYTHM CANNOT RULE OUT SEPTAL INFARCT, AGE INDETERMINATE BASELINE ARTIFACT- I, II, III, AVR, AVL, AVF, V2, V5-V6 ABNORMAL ECG COMPARED TO ECG 12/31/2022 05:52:31 ST-T WAVE ABNORMALITY RESOLVED Electronically Signed On 01-29-2023 18:45:53 SALESFORCE SPECIALIST by Michael Cannon D.O.
[2023-01-29 16:50] LABS: Basophils Percent Auto 0.3 % (0.2-1.2); Eosinophils Percent Auto 0.1 % (0-4.4); Hematocrit 42.2 % (37.0-47.0); Hemoglobin 13.6 g/dL (12.0-15.0); Immature Granulocyte Absolute 0.02 K/mm3 (0.00-0.031); Immature Granulocyte Percent A 0.3 % (0-0.5); Lymphocytes Absolute Auto 1.37 K/mm3 (0.9-3.2); Lymphocytes Percent Auto 17.2 % (18.3-44.2); Mean Corpuscular HGB Conc 32.2 g/dl (32-36); Mean Corpuscular Hemoglobin 28.3 pg (26-34); Mean Corpuscular Volume 87.7 fl (80-100); Mean Platelet Volume 11.3 fl (7.4-10.4); Monocytes Absolute Auto 0.3 K/mm3 (0.1-0.6); Neutrophils Absolute Auto 6.2 K/mm3 (1.3-6.7); Neutrophils Percent Auto 78.1 % (45.5-73.1); Platelet Count Result 321 k/mm3 (150-375); Red Blood Count 4.81 M/mm3 (4.2-5.4); Red Cell Distribution Width 16.5 % (11.5-14.5)
[2023-01-29 17:02] LABS: INR 1.1; Partial Thromboplastin Time 30.7 SECONDS (22.3-36.8); Prothrombin Time 14.1 Seconds (11.1-14.7)
--- NOTE | 2023-01-29 17:18 | ED.AMS ---
HPI - Altered Mental Status General Chief Complaint: Altered Mental Status Stated Complaint: ALTERED MENTAL STATUS Time Seen by Provider: 01/29/23 16:39 History of Present Illness HPI narrative: Patient is a 67-year-old female with a history of COPD on 2 L baseline, CHF, A-fib on Eliquis, hypertension, hyperlipidemia presenting with altered mental status. Patient's family is at bedside and states that since yesterday she has been not acting like herself. States that she is normally ANO x3 and able to walk well with her walker. Yesterday she started to look out of it and not look like herself. states that he asked her multiple times what was wrong and she stated that she had a cold . Today, she seemed even less like herself and just wanted to lay in bed with her eyes closed so they brought her in for evaluation. Family reports that she was agitated earlier. Currently, patient denies complaints. States she feels tired. Related Data Home Medications Medication Instructions Recorded Confirmed pregabalin 100 mg capsule 100 mg PO DAILY 08/27/22 01/24/23 sertraline 100 mg tablet 100 mg PO DAILY 08/27/22 01/24/23 ferrous sulfate 325 mg (65 mg 325 mg PO DAILY 09/13/22 01/24/23 iron) tablet (FeroSul) Allergies Allergy/AdvReac Type Severity Reaction Status Date / Time atorvastatin Allergy Itching Verified 01/24/23 11:41 codeine Allergy Hives Verified 01/24/23 11:41 vancomycin Allergy Rash Verified 01/24/23 11:41 Cephalosporins AdvReac Diarrhea Verified 01/24/23 11:41 Review of Systems Review of Systems: All systems reviewed & are unremarkable except as noted in HPI and below PMFSH Past Medical History Medical History Chronic back pain COPD (chronic obstructive pulmonary disease) Depression Foot drop Hypertension Iron deficiency anemia Neuropathy Overactive bladder Personal history of nicotine dependence Surgical History Surgical History H/O tubal ligation tubal repair after a tubal H/O umbilical hernia repair History of appendectomy History of foot surgery History of laparoscopic cholecystectomy 12/01/2022 - laparoscopic cholecystectomy with repair bile duct injury, placement T-tube, T-tube cholangiogram History of spinal fusion Family History Family History Other Heart disease Hypertension Social History Social History Social History: Current smoker around 5 cigarettes per day. She has smoked since age 19yo - up to 0.75 or 1ppd for many years. In 2018 she cut down to 0.5ppd and in December she cut down to 5 cigarettes per day now. She reports drinking about 6 beers per week. Denies marijuana or illicit substance use. 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 She lives at home with her . Smoking packs per day: 0.5 Smoking cigarettes per day: 10.0 Years smoked: 50 Smoking pack-years: 25.00 Smoking status: Former smoker Tobacco type: cigarettes Second hand tobacco smoke exposure: No Alcohol intake: current Drinks per week: 6 Substance use: never Substance use type: does not use Lack of Transportation: No Lack of Food: Never True Current Housing: I Have Housing Concerned About Future Housing: No Difficulty Paying Gas/Electric Bills: No Difficulty Paying for Meds: No Currently Unemployed: No Education: High School Diploma/GED Difficulty w/ Childcare or Family Care: No Living arrangements: with family Spiritual care concerns: No Exam Narrative: GENERAL: Frail-appearing, chronically ill appearing, laying in bed with her eyes closed in no acute distress HEAD: Normocephalic, atr
[2023-01-29 17:37] LABS: Alanine Aminotransferase 14 U/L (6-35); Albumin Level 3.9 g/dL (3.5-5.1); Alkaline Phosphatase 134 U/L (38-126); Anion Gap 9 mmol/L (8-16); Bilirubin,Total 0.5 mg/dL (0.2-1.3); Blood Urea Nitrogen 12 mg/dL (7-17); Calcium 8.9 mg/dL (8.4-10.2); Carbon Dioxide 22 mmol/L (22-30); Chloride 107 mmol/L (98-107); Estimated CRCL calculation 46 ml/min; Estimated Glomerular Filt Rate > 60; Glucose 108 mg/dL (65-110); Potassium 3.4 mmol/L (3.4-5.0); Sodium 138 mmol/L (137-145)
[2023-01-29 17:37] LABS: Amphetamine Screen Urine Negative (Negative); Barbiturate Screen Urine Negative (Negative); Benzodiazepines Screen Urine Negative (Negative); Cannabinoid Screen Urine Negative (Negative); Cocaine Screen Urine Negative (Negative); Methadone Screen Urine Negative (Negative); Opiate Screen Urine Negative (Negative); Phencyclidine Screen Urine Negative (Negative)
[2023-01-29 17:48] LABS: Lactic Acid Reflex 0.8 mmol/L (0.7-2.0)
[2023-01-29 17:50] LABS: Aspartate Amino Transferase 32 U/L (14-36); NT Pro B Type Natriuretic Pept 3660 pg/mL (19.9-100)
[2023-01-29 17:51] LABS: Alveolar/Arterial O2 Gradient 55.3 mmHg; Base Excess ABG -1.2 mEq/l (+/-2.0); Fractional Inspired Oxygen 21 %; HCO3 ABG 21.3 mEq/l (22.0-26.0); Oxygen Content ABG 18.1 %vol (16.0-22.0); Oxygen Saturation ABG 92.3 % (95.0-100.0); Oxyhemoglobin 89.4 % THb (90.0-100.0); PCO2 ABG 29.9 mmHg (35.0-45.0); PO2 ABG 58.6 mmHg (80.0-100.0); PO2 FiO2 Ratio Arterial Blood 2.79 %; Total Hemoglobin 14.4 g/dL (12.0-18.0)
[2023-01-29 17:52] LABS: Device ROOM AIR; Modified Allen's Test Pass; Site Drawn RIGHT RADIAL
[2023-01-29 17:56] LABS: Appearance Urine Clear (Clear); Bacteria Urine None Seen /hpf; Bilirubin Urine Negative (Negative); Color Urine Yellow (Yellow); Glucose Urine UA 3+ mg/dL (Negative); Ketones Urine Trace mg/dL (Negative); Leukocyte Esterase Ur Negative LEU/UL (Negative); Need Manual Microscopic Reviewed; Nitrate Urine Negative (Negative); Non Pathogenic Casts 0-2; Protein Urine Trace mg/dL (Negative); RBC Urine 0-2 /hpf (0-2); Specific Grav Ur 1.022 (1.001-1.035); Squamous Epithelial Cell Urine None seen /hpf (Few); Urobilinogen Urine 0.2 mg/dL (<2.0); WBC Urine 0-5 /hpf
[2023-01-29 18:16] LABS: Add Urine Microscopic? YES
[2023-01-29 18:27] LABS: Influenza A QL RT-PCR Negative (Negative); Influenza B QL RT-PCR Negative (Negative); RSV RNA, RT-PCR Negative (Negative); SARS-CoV-2 RNA PCR Negative
--- NOTE | 2023-01-29 19:08 | PC.NURSE ---
Patient report received from LAVERNE Miller. All questions answered and care of patient assumed.
[2023-01-29] MEDS: SODIUM CHLORIDE 0.9% IV 500 ML 999 ML IV CONT (21:01)
--- NOTE | 2023-01-29 21:07 | PC.NURSE ---
Patient ambulatory with walker. Patient strong enough to ambulate with stand-by assist. O2 sat between 91-94% on RA while ambulatory. naida Hernandez made aware.
[2023-01-29 21:39] LABS: INR 1.1; Partial Thromboplastin Time 31.3 SECONDS (22.3-36.8); Prothrombin Time 14.1 Seconds (11.1-14.7)
[2023-01-29 22:11] LABS: Thyroid Stimulating Hormone Reflex 0.276 uIU/mL (0.465-4.68)
[2023-01-29 23:15] LABS: Free T4 Free Thyroxine Reflex 1.32 ng/dL (0.78-2.19)
[2023-01-30 00:29] LABS: Total Triiodothyronine (T3) 0.82 NG/ML (0.97-1.69)
== END 2023-01-29 22:47 | disposition home or self-care (01) ==
PROVIDERS: Emergency Medicine; Emergency Provider Emergency Medicine; PCP Registered Nurse
DX: R53.83 Other fatigue (principal); R53.1 Weakness; Z20.822 Contact with and (suspected) exposure to COVID-19; I48.91 Unspecified atrial fibrillation; J44.9 Chronic obstructive pulmonary disease, unspecified; I11.0 Hypertensive heart disease with heart failure; I50.9 Heart failure, unspecified; E78.5 Hyperlipidemia, unspecified; G89.29 Other chronic pain; M54.9 Dorsalgia, unspecified; F32.A Depression, unspecified; F17.210 Nicotine dependence, cigarettes, uncomplicated; Z79.01 Long term (current) use of anticoagulants; Z98.1 Arthrodesis status; R94.31 Abnormal electrocardiogram [ECG] [EKG]
CPT/HCPCS: 36415; 36600; 51701; 70450; 71045; 74177; 80053; 80307; 81001; 82805; 83605; 83880; 84439; 84443; 84480; 85025; 85610; 85730; 87637; 93005; 96360; 99284; J7040; Q9967

== ENCOUNTER 2023-02-07 15:07 | Outpatient (CLI) | payer MEDICARE, SELFPAY ==
[2023-02-07 15:00] VITALS: PULSE 90; O2SAT 91
[2023-02-07 15:05] VITALS: PULSE 105; O2SAT 87
[2023-02-07 15:10] VITALS: PULSE 112; O2SAT 88
[2023-02-07 15:25] VITALS: PULSE 110; O2SAT 90
[2023-02-07 15:35] VITALS: PULSE 92; O2SAT 91
--- NOTE | 2023-02-07 15:40 | HOMEO2EVAL ---
Evaluation was performed at [facility] Home Oxygen Evaluation RC: Home Oxygen (O2) Evaluation Start: 02/07/23 15:36 Freq: Status: Active Protocol: RPE Activity Type Activity Date Activity User E-sign Co-sign Detail Recorded Client Recorded Date Recorded By Document 02/07/23 15:00 [email or web address] [email or web address] 02/07/23 15:40 DJO Document 02/07/23 15:05 [email or web address] [email or web address] 02/07/23 15:40 DJO Document 02/07/23 15:10 [email or web address] [email or web address] 02/07/23 15:40 DJO Document 02/07/23 15:25 [email or web address] [email or web address] 02/07/23 15:40 DJO Document 02/07/23 15:35 [email or web address] [email or web address] 02/07/23 15:40 DJO 02/07/23 02/07/23 02/07/23 15:00 15:05 15:10 Home O2 Evaluation [Oxygen] -Test Phase Resting Exercise Exercise -Oxygen Delivery Room Air Room Air Nasal Cannula -Oxygen Flow Rate (L/min) 1 [Pulse Oximetry] -Pulse Oximetry (90-100 %) 91 87 L 88 L [Pulse Rate] -Pulse Rate (60-100 beats/min) 90 105 H 112 H [Evaluation] -Activity Tolerance Fair [Charges] -Treatment Charges O2 Evaluation - Outpatient 02/07/23 02/07/23 15:25 15:35 Home O2 Evaluation [Oxygen] -Test Phase Exercise Resting -Oxygen Delivery Nasal Cannula Room Air -Oxygen Flow Rate (L/min) 2 [Pulse Oximetry] -Pulse Oximetry (90-100 %) 90 91 [Pulse Rate] -Pulse Rate (60-100 beats/min) 110 H 92 [Evaluation] -Activity Tolerance [Charges] -Treatment Charges
--- NOTE | 2023-02-07 16:42 | WPDPFTINT ---
PFT Procedure Performed PFT Procedure Performed Spirometry with Pre/Post Bronchodilator Plethysmography (Lung Vol) Diffusing Cap (DLCO) Flow Vol Loop PFT Interpretation This is a pulmonary function test with pre and post-bronchodilator spirometry, plethysmography and diffusing capacity. The test was performed and results interpreted in accordance with the 2019 and 2005 ATS/ERS Task Force guidelines respectively using the Global Lung Function Initiative-2012 reference equations. Patient demonstrated good effort and cooperation. Reproducibility criteria were met. The quality of the pre bronchodilator spirometry maneuver was Grade C and post bronchodilator spirometry maneuver was Grade C. Findings: Spirometry: There is decreased maximal expiratory airflow at all lung volumes with concave expiratory flow tracing. The contour the inspiratory flow tracing is normal. The pre bronchodilator FVC is 2.82 L, 95% predicted. The pre bronchodilator FEV1 is 1.76 L, 75% predicted. The pre bronchodilator FEV1: FVC ratio 63%. The post bronchodilator FVC is 3.29 L, representing a 17% increase. The post bronchodilator FEV1 is 2.08 L, representing an 18% increase. The post bronchodilator FEV1: FVC ratio 63%. Plethysmography: The total lung capacity is 5.59 L, 110% predicted. The functional residual capacity is 2.88 L, 100% predicted. The residual volume is 1.94 L, 92% predicted. Diffusion capacity: The diffusing capacity unadjusted for hemoglobin and carboxyhemoglobin is 6.7, 32% predicted. The diffusing capacity adjusted for alveolar volume is 1.35, 31% predicted. Impression: There is a mild obstructive abnormality with a normal FEV1 and with significant improvement after inhaling a single dose of albuterol. The lung volumes are normal. The diffusing capacity unadjusted for hemoglobin and carboxyhemoglobin is severely decreased and remains severely decreased when adjusted for alveolar volume. There are no prior studies for comparison
== END 2023-02-07 15:08 | disposition home or self-care (01) ==
LOC: ANHPFT 15:08
PROVIDERS: PCP Registered Nurse; Visit Provider Physician Assistant
DX: J43.9 Emphysema, unspecified (principal); R09.02 Hypoxemia; R94.2 Abnormal results of pulmonary function studies
CPT/HCPCS: 94060; 94618; 94726; 94729

== ENCOUNTER 2023-03-14 09:20 | Outpatient (CLI) | payer MEDICARE, SELFPAY ==
--- NOTE | ~2023-03-14 | US_ITS ---
EXAMINATION:US_VDOPREFBI_US INDICATION:Venous insufficiency TECHNIQUE: Multiple grayscale, color flow and Doppler images of the lower extremity deep venous syste ms were obtained and reviewed. COMPARISON:No prior studies for comparison. FINDINGS: The common femoral, superficial femoral and popliteal veins demonstrate normal respiratory variation, augmentation and compressibility. Color flow is also seen within the posterior tibial, pe roneal, greater saphenous and profunda veins. There is no evidence for venous reflux in the left lower extremity. There is reflux in the right grea ter and saphenous veins. IMPRESSION: 1: No lower extremity deep venous thrombosis. 2: Venous reflux in the right greater and lesser saphenous veins. Reviewed, dictated and finalized at location B.
== END 2023-03-14 09:21 | disposition home or self-care (01) ==
PROVIDERS: PCP Registered Nurse; Visit Provider Nurse Practitioner Adult Health
DX: I87.2 Venous insufficiency (chronic) (peripheral) (principal); I83.892 Varicose veins of left lower extremity with other complications
CPT/HCPCS: 93970

== ENCOUNTER 2023-03-27 11:30 | Inpatient (IN) | payer MEDICARE, SELFPAY ==
[2023-03-18 09:40] VITALS: BMI 17.0
--- NOTE | 2023-03-18 11:27 | PC.NURSE ---
Report to the Outpatient Waiting Room, entrance under the green pavilion located off [facility], at time _6:30AM on date ___03/26/23____. Planned Procedure Time: __8:30AM . Time changes happen often and if your time is changed the preop area will call you the afternoon before. - You and your visitor will be asked to self-screen and do not enter if you have any COVID symptoms. - A mask is optional within the hospital at this time. Patients may have clear liquids (water, carbonated beverages, clear teas, apple juice) until 3 hours prior to surgery with a maximum of 20 ounces. - No food from midnight until time of surgery Take the following medications with a SIP of water the morning of surgery: ___ANORO ELLIPTA INHALER, METOPROLOL, OXYCODONE, OXYCONTIN, PREGABALIN,SERTRALINE, ALBUTEROL INHALER NEEDED DO NOT STOP ANY OF YOUR OTHER PRESCRIPTION MEDICATIONS PRIOR TO SURGERY ?EXCEPT THE FOLLOWING Medications to discontinue per physician ____HOLD ELIQUIS PER DR ZAPATA, HOLD ALL VITAMINS/SUPPLEMENTS 3 DAYS PRE-OP- LAST DOSE 03/22/23 Please no make-up, nail greek, hairspray, perfume, deodorant, or body powder the day of surgery. No jewelry (including any body piercings) or valuables the day of surgery, leave them at home. Please take a shower or bath the night before, or the morning of, surgery with an antibacterial soap. Wear comfortable, loose fitting clothing. Children are encouraged to wear pajamas. - Jewelry must be removed prior to entering the operating room. Rings and piercings that are not removed may be cut off. - The hospital will not accept responsibility for valuables. - Please leave all valuables, including medications, at home the day of surgery. If you are going home after surgery, a licensed taxi truck driver must drive you home. - NO public transportation without another adult if you receive anesthesia. - We recommend that an adult stay with you for 24 hours following discharge. - We also recommend that you do not drive, make important decision, drink alcoholic beverages, or take any drugs that were not prescribed by your health care provider for at least 24 hours after your discharge time. Follow any additional instructions given to you from your surgeon. HIBICLENS SHOWER MORNING OF SURGERY If you or anyone in your household have experienced Covid symptoms in the past week, please notify your surgeon or the nurse liaison at the phone number below for possible testing. Telephone instructions given to __PATIENT and asked if any additional questions and then verbalized understanding. Patient advised to call surgeon office or pre surgery nurse liaison [phone] if any additional questions.
[2023-03-26] VITALS (17 sets, daily range): BP systolic 98–144; BP diastolic 43–72; PULSE 59–79; RESP 12–18; TEMP 36.1–37.6; O2SAT 91–98
--- NOTE | 2023-03-26 06:53 | WPDANESEPPF ---
Anes - Initial Pre Proc Eval Procedure: Operation Date: 03/26/23 08:30 Proposed Procedures p Repair Epigastric Incisional Hernia with Mesh - Casimiro Chamberlain MD Date/Time: 03/26/23 06:53 Surgeon: Casimiro Chamberlain MD Pre Op Diagnosis: incisional hernia Patient Data Age: 67 Gender: F Height: 1.63 m Weight: 45 kg Allergies Allergy/AdvReac Type Severity Reaction Status Date / Time atorvastatin Allergy Itching Verified 03/18/23 09:22 codeine Allergy Hives Verified 03/18/23 09:22 vancomycin Allergy Rash Verified 03/18/23 09:22 Cephalosporins AdvReac Diarrhea Verified 03/18/23 09:22 Home Medications Medication Instructions Recorded Confirmed Type pregabalin 100 mg capsule 100 mg PO BID 08/27/22 03/18/23 History sertraline 100 mg tablet 100 mg PO QAM 08/27/22 03/18/23 History apixaban 5 mg tablet (Eliquis) 5 mg PO BID #60 tabs 12/20/22 03/18/23 Rx albuterol sulfate 90 mcg/actuation 2 puff inhalation Q4H PRN 01/04/23 03/18/23 Rx aerosol inhaler Shortness Of Breath #1 g metoprolol succinate 100 mg 100 mg PO QAM #30 tabs 01/04/23 03/18/23 Rx tablet,extended release 24 hr (Toprol XL) sacubitril 24 mg-valsartan 26 mg 1 tablet PO Q12HR #30 tabs 01/04/23 03/18/23 Rx tablet (Entresto) furosemide 20 mg tablet 20 mg PO QAM 03/18/23 03/18/23 History multivitamin with minerals-folic 1 tablet PO DAILY 03/18/23 03/18/23 History acid 0.4 mg tablet oxybutynin chloride 5 mg 5 mg PO QAM 03/18/23 03/18/23 History tablet,extended release 24 hr oxycodone 10 mg tablet 10 mg PO TID 03/18/23 03/18/23 History oxycodone 10 mg tablet,crush 10 mg PO BID 03/18/23 03/18/23 History resistant,extended release 12 hr (OxyContin) umeclidinium 62.5 mcg-vilanterol 1 inh inhalation QAM 03/18/23 03/18/23 History 25 mcg/actuation powdr for inhalation (Anoro Ellipta) Patient hx anesthesia problems: none Family hx anesthesia problems: none Results Review: All pre-operative results and documents have been reviewed as part of the pre-operative evaluation. [facility] Past Medical History Medical History Chronic back pain COPD (chronic obstructive pulmonary disease) Depression Foot drop Hypertension Iron deficiency anemia Neuropathy Overactive bladder Personal history of nicotine dependence Surgical History Surgical History H/O tubal ligation tubal repair after a tubal H/O umbilical hernia repair History of appendectomy History of foot surgery History of laparoscopic cholecystectomy 12/01/2022 - laparoscopic cholecystectomy with repair bile duct injury, placement T-tube, T-tube cholangiogram History of spinal fusion Family History Family History Other Heart disease Hypertension Social History Social History Social History: Current smoker around 5 cigarettes per day. She has smoked since age 19yo - up to 0.75 or 1ppd for many years. In 2018 she cut down to 0.5ppd and in December she cut down to 5 cigarettes per day now. She reports drinking about 6 beers per week. Denies marijuana or illicit substance use. 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 She lives at home with her . Smoking packs per day: 1 Smoking cigarettes per day: 20.0 Years smoked: 45 Smoking pack-years: 45.00 Smoking status: Current every day smoker Tobacco type: cigarettes Second hand tobacco smoke exposure: No Additional smoking assessment comments: CURRENTLY SMOKING 5-6 CIG/DAY Alcohol intake: current Drinks per week: 14 Substance use: never Substance use type: does not use Lack of Transportation: No Lack of Food: Never True Current Housing:
[2023-03-26] MEDS: LACTATED RINGERS 1,000 ML 30 ML IV CONT (07:16)
[2023-03-26] MEDS: ACETAMINOPHEN 500 MG TABLET 1000 MG PO (07:17)
[2023-03-26] MEDS: KETOROLAC 15 MG/ML VIAL (*BKC) IV PUSH (07:19)
--- NOTE | 2023-03-26 08:21 | WPDHPUPDATE1 ---
History and Physical Update Update Date/Time: 03/26/23 08:21 History and Physical has been reviewed, including an updated exam of the patient. There are NO changes in the patient's condition. Risks, benefits, and alternatives have been discussed and questions answered. Patient agrees to proceed with procedure.
[2023-03-26] MEDS: CLINDAMYCIN 900 MG/D5W 50 ML 900 MG/50 ML PIGGYBACK 50 MG IVPB (08:29)
[2023-03-26] MEDS: BUPIVACAINE/EPINEPHRINE 0.25% 50 ML VIAL 30 ML INFILTRATE (09:03)
--- NOTE | 2023-03-26 09:36 | P.OP_ITS ---
Procedure Note - Detailed Date of Procedure 03/26/23 Pre-op Diagnosis incisional hernia Post-op Diagnosis Same Procedure Performed Open repair 2 cm epigastric incisional hernia with Ventralex ST 6.3 cm underlay mesh Surgeon Casimiro Chamberlain MD Sole Ruffer Brionna Peraza [facility] Anesthesia MAC and Local (0.5% Marcaine with epinephrine) Indications Patient underwent bile duct reconstruction with a right subcostal incision several months ago. She has developed an incisional hernia in the midline just below her xiphoid process. She is taken to surgery now for repair. Findings 2 cm epigastric incisional hernia Description of Procedure Patient was taken to surgery and IV sedation was introduced. The abdomen is prepped and draped. The area of the hernia was marked on the skin. The pro posed incision was marked on the skin. Local was infiltrated in the area of the anticipated incision. Incision was made and dissection was started through the subcutaneous. Additional local was infiltrated into the subcutaneous and the fascia. The hernia sac was found it was carefully dissected free from the surrounding subcutaneous tissue. Dissection was then carried deep to the hernia sac so the we entered the retroperitoneal space. Using a combination of blunt sharp dissection, I was able to create a retro peritoneal pocket directly below the anterior abdominal wall fascia. A 6.[address] patch was chosen. This was placed in the defect. Cranial and caudal transfascial sutures of 0 Ethibond were then placed. These sutures were tied and had the effect of drawing the edges of the hernia defect towards 1 another, anticipating a transverse closure. Following this, right and left lateral transfascial sutures were placed to further secure the mesh to the anterior abdominal wall. Finally the hernia defect was closed with [id number] mattress sutures of 0 Ethibond. Each of these sutures incorporated a bit of mesh. This closed the defect over the mesh. Attention was minimal. The repair looked satisfactory. Additional local was infiltrated all around the repair particularly in the fascia around the repair. The subcutaneous was then closed with interrupted 3-0 Vicryl suture. Subcuticular 4-0 more Vicryl skin suture were then placed followed by a running 4-0 Monocryl skin suture. The wound was dressed with Exofin surgical adhesive. The patient was then awakened and taken to recovery in good condition. Sponge and needle counts were correct x2. Implants 6.[address] mesh Estimated Blood Loss -5 Drains No Packing No Pathology None sent Complications No immediate complications Condition Stable Disposition PACU [facility] Billing Surgery - Charge Forward: Surgery Billing (Open repair 2 cm incisional epigastric hernia with Ventralex ST underlay mesh)
[2023-03-26] MEDS: fentaNYL CITRATE INJ (*CRX) 100 MCG/2 ML VIAL 25 MCG IV PUSH ×4 (10:25→10:51)
--- NOTE | 2023-03-26 11:43 | ADMGEN ---
This patient, Chantal Grove, was admitted to 3 [facility] Surg Room 319-01. Patient/family oriented to hospital policies and general routines including ID bracelet, bed and alarms, visiting hours, pain management, procedures, bathroom and other care routines, personal items, smoking policy, room service/diet, and visiting hours. Information on how to activate the Rapid Response Team has been discussed. Patient/Family are encouraged to report perceived risks to care and to ask questions if they do not understand what they are told or what they should do.
[2023-03-26] MEDS: LACTATED RINGERS 1,000 ML 70 ML IV CONT (11:58)
--- NOTE | 2023-03-26 13:19 | PM.IMCN ---
Assessment and Plan Assessment and plan (1) History of incisional hernia repair: Code(s): Z98.890 - Other specified postprocedural states; Z87.19 - Personal history of other diseases of the digestive system Status: Acute Assessment and Plan: Postop care per surgery Please see operative report Open repair 2 cm epigastric incisional hernia with Ventralex ST 6.3 cm underlay mesh Operative note stated that there were no immediate complications. DVT prophylaxis as per surgeon's choice. Her Xarelto is on hold and she is on subcu Lovenox. (2) Hypertension: Qualifiers: Hypertension type: primary hypertension Qualified Code(s): I10 - Essential (primary) hypertension Code(s): I10 - Essential (primary) hypertension Status: Chronic Assessment and Plan: Continue with metoprolol however please monitor closely her pulse is 64 blood pressure is currently 102/53. Please hold if map less than 65. Hold if heart rate less than 60. (3) Depression: Code(s): F32.A - Depression, unspecified Status: Chronic Assessment and Plan: Continue with sertraline (4) CHF (congestive heart failure), NYHA class I: Code(s): I50.9 - Heart failure, unspecified Status: Acute Assessment and Plan: Continue with Entresto, Lasix, and metoprolol Echo from 12/31/2022 today was read as the following. ?1. Complete two-dimensional, color flow and Doppler transthoracic echocardiogram is performed. ? 2. The inferoseptal wall, basal inferior wall, mid inferior wall, basal anteroseptal, and mid anteroseptal are hypokinetic. ? 3. Left ventricular systolic function is mildly reduced, estimated at 45-50%. ? 4. There is mildly increased left ventricular wall thickness. ? 5. The left ventricular diastolic function is normal. ? 6. Global longitudinal strain is abnormal at -16 %. ? 7. Right ventricular chamber dimension is mildly enlarged. ? 8. Left atrial chamber dimension is mildly enlarged. ? 9. There is mild aortic valve stenosis with a peak velocity of 166 cm/s, mean gradient of 6 mmHg, and aortic valve area of 1.7 cm2. ? 10. There is severe aortic valve calcification. ? 11. There is mild to moderate mitral valve regurgitation. ? 12. There is mild tricuspid valve regurgitation. ? 13. Strain analysis performed. (5) Atrial fibrillation: Code(s): I48.91 - Unspecified atrial fibrillation Status: Acute Assessment and Plan: Patient's Pamis is currently on hold at this time. Continue with metoprolol (6) COPD (chronic obstructive pulmonary disease): Qualifiers: COPD type: emphysema Emphysema type: unspecified Qualified Code(s): J43.9 - Emphysema, unspecified Code(s): J44.9 - Chronic obstructive pulmonary disease, unspecified Status: Chronic Assessment and Plan: Continue with albuterol inhaler and Anoro Ellipta HPI Data of Consult Consult date: 03/26/23 Requesting Physician: Casimiro Chamberlain MD Primary Care Provider: Adriana Valencia, [employer] Consult Narrative Narrative: Chantal Grove is a 67 year old female who had it complaining of swelling in her epigastric incision of her laparoscopic cholecystectomy, repair bile duct injury on 12/04/2022 and repair bile duct with T-tube placement. The patient was complaining of having some swelling to that area and some discomfort. The patient had incisional hernia. Today she had a open repair 2 cm epigastric incisional hernia with Ventralex underlay mesh per Dr. Chamberlain. It was noted that she had no complications. The patient has a small 2 in incision that is well approximated with surgical glue. The patient has no complaints. She has a history of COPD and does not chronically wear oxygen but today she does have oxygen on at 2 L per nasal cannula. The patient is still somewhat somnolent but is awaken easily. She does fall asleep easily. She has fallen asleep on me several times during the interview. The patie
[2023-03-26] MEDS: oxyCODONE/ACETAMINOPHEN (*CRX) 5-325 MG TABLET 1 TABLET PO (17:19)
[2023-03-26] MEDS: SACUBITRIL/VALSARTAN 24-26 MG TABLET 1 TAB PO (20:57)
[2023-03-26] MEDS: oxyCODONE HCL (*CRX) 5 MG TAB IR 10 MG PO (20:58)
[2023-03-26] MEDS: PREGABALIN (*CRX) 50 MG CAPSULE 100 MG PO (20:58)
[2023-03-26] MEDS: ENOXAPARIN 30 MG/0.3 ML SYRINGE SUB-Q (20:58)
[2023-03-26] MEDS: oxyCODONE HCL (*CRX) 10 MG TAB SR 12HR PO (22:49)
[2023-03-27] VITALS (16 sets, daily range): BP systolic 127–183; BP diastolic 71–87; PULSE 80–118; RESP 20–24; TEMP 36.6–39.1; O2SAT 84–95; BMI 17.6
--- NOTE | ~2023-03-27 | XR_ITS ---
EXAMINATION: XR chest port-a-cath/central DATE: 03/30/2023 06:11 INDICATION: Central line placement TECHNIQUE: frontal view of the chest was obtained. COMPARISON: Chest radiograph dated 01/29/2023 FINDINGS: Right internal jugular central venous catheter which extends laterally with distal tip at the junctio n of the right subclavian and axillary veins. Opacities in bilateral mid and lower lung zones. No ple ural effusion or pneumothorax. The cardiomediastinal silhouette is normal. Cholecystectomy clips the right upper quadrant. IMPRESSION: 1. Right subclavian central venous catheter with distal tip extending laterally to the junction of th e right subclavian and axillary veins. 2. Opacities in bilateral mid and lower lung zones which could represent atelectasis and/or pneumonia . Reviewed, dictated and finalized at location A. IMPRESSION: 1. Right subclavian central venous catheter with distal tip extending laterally to the junction of the right subclavian and axillary veins. 2. Opacities in bilateral mid and lower lung zones which could represent atelec tasis and/or pneumonia.
--- NOTE | ~2023-03-27 | XR_ITS ---
EXAMINATION: XR chest 2V DATE: 04/01/2023 12:37 INDICATION: Dyspnea. Atrial fibrillation with rapid ventricular response. TECHNIQUE: frontal and lateral views of the chest were obtained. 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 Small bilateral pleural effusions with blunting at the posterior sulci. No pneumothorax. The cardiomediastinal silhouette is normal. Left upper extremity peripherally inserted central venous catheter (PICC) tip at the superior cavoatrial junction. IMPRESSION: 1. Small bilateral pleural effusions. 2. Persistent opacities in the bilateral mid and lower lung zones consistent with mild pulmonary oscar a, pneumonia, atelectasis or some combination thereof. Reviewed, dictated and finalized at location L. IMPRESSION: 1. Small bilateral pleural effusions. 2. Persistent opacities in the bilateral mid and lower lung zones consistent wi th mild pulmonary edema, pneumonia, atelectasis or some combination thereof.
--- NOTE | ~2023-03-27 | XR_ITS ---
EXAMINATION: XR chest PICC line DATE: 03/30/2023 10:28 INDICATION: PICC line placement TECHNIQUE: frontal view of the chest was obtained. COMPARISON: Chest radiograph dated 03/30/2023 FINDINGS: Right upper extremity peripherally inserted central venous catheter (PICC) tip at the superior cavoa trial junction. Persistent opacities in the bilateral mid to lower lung zones. Increased lucency with architectural distortion the upper lung zones suggestive of emphysema. No pleural effusion. The card iomediastinal silhouette is normal. Cholecystectomy clip in the right upper quadrant. IMPRESSION: 1. Left upper extremity PICC line tip at the superior cavoatrial junction. 2. Likely emphysema with opacities in the bilateral mid and lower lung zones which could represent at electasis or pneumonia. Reviewed, dictated and finalized at location A. IMPRESSION: 1. Left upper extremity PICC line tip at the superior cavoatrial junction. 2. Likely emphysema with opacities in the bilateral mid and lower lung zones wh ich could represent atelectasis or pneumonia.
--- NOTE | ~2023-03-27 | US_ITS ---
EXAMINATION: US soft tissue abdomen DATE: 03/27/2023 10:58 INDICATION: Epigastric mass. TECHNIQUE: Multiple grayscale and Doppler ultrasound images of the abdomen were obtained. COMPARISON: CT abdomen and pelvis 01/29/2023 FINDINGS: There is a 4.3 x 1.3 x 3.8 cm anechoic and hypoechoic mass in the subcutaneous fat in the e pigastric region. IMPRESSION: 1. 4.3 x 1.3 x 3.8 cm mass in the subcutaneous fat in the epigastric region, likely a hematoma. Reviewed, dictated and finalized at location E. IMPRESSION: 1. 4.3 x 1.3 x 3.8 cm mass in the subcutaneous fat in the epigastric region, tigre garcia a hematoma.
--- NOTE | ~2023-03-27 | CT_ITS ---
EXAMINATION: CT abdomen pelvis w con DATE: 03/29/2023 21:10 INDICATION: Septic TECHNIQUE: Computed tomography (CT) of the abdomen and pelvis was performed with 100 mL Omnipaque-350 intravenous contrast. Automated exposure control and iterative reconstruction technique were employe d. The dose-length product was 301.42 mGy-cm. COMPARISON: 01/29/2023, 12/12/[address] dated 01/01/2023 FINDINGS: And seen is emphysema with regions of consolidation in the bilateral lower lobes with associated volu me loss consistent with atelectasis. Heart size is normal. Atherosclerotic coronary artery calcificat ion. No pericardial or pleural effusion. Small sliding-type hiatal hernia. Mild intra and extra hepatic biliary ductal dilation likely related to prior cholecystectomy with arie gical clips the gallbladder fossa. Persistent small amount of pneumobilia along the common bile duct which measures up to 9 mm in maximal diameter which appear to taper smoothly at the head of the pancr eas. Additional dropped clip along the posterior margin of the right hepatic lobe. There is mild dila tion of the main pancreatic duct at the head and proximal body the pancreas where it measures up to 3 .5 mm maximal diameter. No evident peripancreatic inflammatory strandy to suggest acute pancreatitis. There is however a punctate microcalcification at the head of the pancreas suggesting sequela of chr onic pancreatitis which could also account for the mildly dilated main pancreatic duct. Atherosclerotic calcifications at the bilateral renal moise. There are several left renal cysts measur ing up to 1.7 cm in maximal diameter. There is fluid throughout the colon consistent with nonspecific diarrhea. Bladder is normal. The uterus is not identified and has likely been surgically resected. N o free intraperitoneal gas or fluid. Unchanged shotty left inguinal lymph nodes. No pathologically en larged abdominal or pelvic lymphadenopathy. And small amount of fluid and a few foci of gas in the subcutaneous tissues anterior epigastric regio n likely related to reported recent epigastric incisional hernia repair. The region of fluid which is without a well-defined organized peripherally enhancing wall measures approximately 5.5 cm in cranio caudal and [id number] and up to 7 mm in maximal thickness. Old healed fractures of the right pubic body and left superior and inferior pubic rami. Left total hip arthroplasty. Anterior spinal fusion with interbody bone graft cages and solid fusion at L5-S1. Additional attempted anterior fusion with interbody bone graft cage point without solid osseous fusion across the L4-5 disc space. There is L4- S1 posterior spinal fusion with bilateral vertical rods with pedicle screws at both L4 and S1. Chroni c T10 compression fracture and T12 and L1 burst fractures. IMPRESSION: 1. Nonorganized appearing small amount of fluid with a few foci of gas within the subcutaneous tissue s along the anterior epigastric wall likely related to a reported recent epigastric incisional hernia repair. 2. Unchanged mild intra and extrahepatic periductal dilation likely related to prior cholecystectomy. 3. Mild dilation of the main pancreatic duct which along with a tiny focus of peripheral calcificatio n at the head of pancreas likely represents sequela of chronic pancreatitis. Correlate with clinical history. 4. Fluid throughout the colon consistent with nonspecific diarrhea. 5. Consolidation in the bilateral lower lobes most likely closing atelectasis although difficult to e xclude superimposed pneumonia. Reviewed, dictated and finalized at location A. IMPRESSION: 1. Nonorganized appearing small amount of fluid with a few foci of gas within t he subcutaneous tissues along the anterior epigastric wall likely related to a repo
[2023-03-27] MEDS: HYDROmorphone HCL INJ (*CRX) 1 MG/ML SYR IV PUSH ×2 (01:02→05:39)
[2023-03-27] MEDS: oxyCODONE/ACETAMINOPHEN (*CRX) 5-325 MG TABLET 1 TABLET PO ×2 (02:07→09:20)
[2023-03-27] MEDS: ACETAMINOPHEN 500 MG TABLET PO ×3 (05:35→20:27)
[2023-03-27 06:10] LABS: Hematocrit 38.3 % (37.0-47.0); Hemoglobin 12.8 g/dL (12.0-15.0); Mean Corpuscular HGB Conc 33.4 g/dl (32-36); Mean Corpuscular Volume 83.8 fl (80-100); Mean Platelet Volume 11.3 fl (7.4-10.4); Platelet Count Result 298 k/mm3 (150-375); Red Blood Count 4.57 M/mm3 (4.2-5.4); Red Cell Distribution Width 16.2 % (11.5-14.5); White Blood Count 14.6 K/mm3 (4.5-10.0)
[2023-03-27 06:45] LABS: Anion Gap 5 mmol/L (8-16); Blood Urea Nitrogen 15 mg/dL (7-17); Calcium 7.9 mg/dL (8.4-10.2); Carbon Dioxide 24 mmol/L (22-30); Chloride 107 mmol/L (98-107); Estimated CRCL calculation 40 ml/min; Estimated Glomerular Filt Rate > 60; Glucose 105 mg/dL (65-110); Potassium 2.8 mmol/L (3.4-5.0); Sodium 136 mmol/L (137-145)
--- NOTE | 2023-03-27 08:46 | PM.PNGS ---
Progress Note: A&P Assessment and Plan (1) History of incisional hernia repair: Code(s): Z98.890 - Other specified postprocedural states; Z87.19 - Personal history of other diseases of the digestive system Status: Acute Assessment and Plan: Wound very tender and ecchymotic. Will get ultrasound to evaluate for significant hematoma. Doubt hematoma is present to any significant degree. Severe pain more likely due to chronic opioid dependence. Oxygen saturations were also borderline. She does have oxygen at home to be worn at 1 L but with the increased narcotics, better to continue in the hospital for now. (2) Opioid dependence with current use: Code(s): F11.20 - Opioid dependence, uncomplicated Status: Chronic Assessment and Plan: Patient receiving home doses of oxycodone as well as Percocet p.r.n. for pain. Will add Percocet 10/325 p.r.n. oral med for pain 7-10. (3) Atrial fibrillation: Code(s): I48.91 - Unspecified atrial fibrillation Status: Chronic Assessment and Plan: On telemetry (4) Chronic anticoagulation: Code(s): Z79.01 - intermodal customer service (current) use of anticoagulants Status: Chronic Assessment and Plan: Hold Eliquis, particularly considering the bruising around her incision. Ultrasound has been ordered. (5) Fever: Code(s): R50.9 - Fever, unspecified Status: Acute Assessment and Plan: Temp 38.2? this morning. Probably due to atelectasis. Encouraged spirometer use and ambulation. (6) Hypokalemia: Code(s): E87.6 - Hypokalemia Status: Acute Assessment and Plan: Potassium 2.8. Will supplement. Subjective Subjective Date/Time Seen: 03/27/23 08:46 Post Op day: 1 Patient reports: still having pain (Incisional pain felt to be severe but patient wishes to go home.), tolerating a regular diet, no bowel movement and fever Review of Systems Review of Systems: All systems reviewed & are unremarkable except as noted in HPI and below (HPI) Exam Narrative: Patient febrile to 38.2 this morning Const: General: comfortable, no acute distress, alert, awake and other (Was sleeping when I came into the room. ) Orientation/consciousness: patient oriented x3 Other: Nursing reports patient sleeping only to awaken and complain of incisional pain. GI: Inspection: abdominal wall ecchymosis and incision (Bruised with some swelling, no drainage) GI Palp: Yes Soft to palpation, Yes Tenderness to palpation present (GI) (Very tender at hernia repair site), No Guarding due to palpation present (GI) and No Rebound tenderness present Neuro: General: patient oriented x3 and no focal motor deficits Extrem: General: no calf tenderness and no edema Psych: Affect: normal affect Insight: Good insight present (Psych) Judgement: Good judgement present (Psych) Objective Data Vital Signs Vital Signs: Vital Signs - 24 hr 03/26/23 09:45 03/26/23 10:00 03/26/23 10:15 Temperature 36.8 C Pulse Rate 77 59 L 64 Respiratory Rate 14 14 12 Blood Pressure 112/58 L 103/56 L 100/56 L Pulse Oximetry 91 94 92 Oxygen Delivery Nasal Cannula Nasal Cannula Nasal Cannula Oxygen Flow Rate 2 2 2 03/26/23 10:30 03/26/23 10:45 03/26/23 11:00 Temperature Pulse Rate 67 65 67 Respiratory Rate 12 12 12 Blood Pressure 115/72 109/59 L 100/51 L Pulse Oximetry 93 94 94 Oxygen Delivery Nasal Cannula Nasal Cannula Nasal Cannula Oxygen Flow Rate 2 2 2 03/26/23 11:21 03/26/23 11:36 03/26/23 12:05 Temperature 36.7 C 36.6 C 36.1 C L Pulse Rate 59 L 61 59 L Respiratory Rate 16 16 16 Blood Pressure 114/54 L 117/58 L 98/52 L Pulse Oximetry 95 94 98 Oxygen Delivery Oxygen Flow Rate 03/26/23 13:05 03/26/23 11:30 03/26/23 16:51 Temperature 36.8 C 36.2 C L Pulse Rate 79 64 Respiratory Rate 18 16 Blood Pressure 98/43 L 102/53 L Pulse Oximetry 98 96 95 Oxygen Delivery Nasal Cannula Oxygen Flow Rate 2
[2023-03-27] MEDS: UMECLIDINIUM/VILANTEROL 62.5-25 MCG ELLIPTA 1 PUFF INHALATION (08:49)
[2023-03-27] MEDS: FUROSEMIDE 20 MG TABLET PO (09:11)
[2023-03-27] MEDS: METOPROLOL SUCCINATE EXT REL 100 MG TABCR PO (09:11)
[2023-03-27] MEDS: THERAPEUTIC MULTIVITAMINS/MINERALS TAB (*BKC) 1 TABLET PO (09:11)
[2023-03-27] MEDS: oxyBUTYnin CHLORIDE XL 5 MG TAB.ER.24 PO (09:11)
[2023-03-27] MEDS: SERTRALINE HCL 50 MG TABLET 100 MG PO (09:11)
[2023-03-27] MEDS: SACUBITRIL/VALSARTAN 24-26 MG TABLET 1 TAB PO ×2 (09:11→20:22)
[2023-03-27] MEDS: POTASSIUM CHLORIDE 20 MEQ TABLET 40 MEQ PO (09:11)
[2023-03-27] MEDS: ENOXAPARIN 40 MG/0.4 ML SYRINGE SUB-Q (09:12)
[2023-03-27] MEDS: oxyCODONE HCL (*CRX) 10 MG TAB SR 12HR PO (09:20)
[2023-03-27] MEDS: PREGABALIN (*CRX) 50 MG CAPSULE 100 MG PO ×2 (09:20→20:23)
[2023-03-27] MEDS: oxyCODONE/ACETAMINOPHEN (*CRX) 10-325 MG TABLET 1 TAB PO ×3 (13:12→22:47)
--- NOTE | 2023-03-27 14:30 | PM.IMPN ---
Progress Note: A&P Assessment and Plan (1) Fever: Code(s): R50.9 - Fever, unspecified Status: Acute (2) Atrial fibrillation: Code(s): I48.91 - Unspecified atrial fibrillation Status: Chronic (3) History of incisional hernia repair: Code(s): Z98.890 - Other specified postprocedural states; Z87.19 - Personal history of other diseases of the digestive system Status: Acute Plan 67 year old female who had swelling in her epigastric incision of her laparoscopic cholecystectomy, repair bile duct injury on 12/04/2022 and repair bile duct with T-tube placement.? The patient was complaining of having some swelling to that area and some discomfort.? The patient had incisional hernia.? She had a open repair 2 cm epigastric incisional hernia with Ventralex underlay mesh per Dr. Chamberlain.? She has a history of COPD and does not chronically wear oxygen ? The patient was admitted by surgical team and the hospitalist group was asked to consult 1)Abdominal Pain at Surgical Site: with fever ?Developing infection Await USG Will start on IV clindamycin Monitor for leucocytosis Post op care as per primary team 2)H/o HF:c/w lasix, entresto, BB 3)H/o Afibb:Eliquis on hold 4)Code:Full 5)DVT ppx:SCD 6)Dispo:as per primary team Time Spent With Patient Time with patient: 15 - 25 minutes Subjective Date/time seen: 03/27/23 14:30 Interval history: worsening of abdominal pain around incision site Spiking fever Review of Systems Review of Systems: All systems reviewed & are unremarkable except as noted in HPI and below Exam Const: General: comfortable HENMT: Mouth: Yes moist mucous membranes Eyes: Sclera: sclerae normal Neck: Neck: supple Resp: Auscultation: clear to auscultation bilaterally Cardio: Rate: regular rate Rhythm: regular rhythm GI: GI Palp: Yes Soft to palpation Other: ecchymosis, tenderness around incision site, no guarding Skin: General skin exam: normal color Neuro: Speech: normal speech Extrem: General: normal to inspection Psych: Mental Status: mental status grossly normal Objective Data Vital Signs Vital Signs: Vital Signs - 24 hr 03/26/23 16:51 03/26/23 16:00 03/26/23 20:51 Temperature 97.2 F L 97.9 F Pulse Rate 64 68 79 Respiratory Rate 16 18 Blood Pressure 102/53 L 123/70 Pulse Oximetry 95 95 Oxygen Delivery Oxygen Flow Rate 03/26/23 20:00 03/27/23 00:51 03/27/23 04:31 Temperature 98.3 F 100.7 F H Pulse Rate 92 98 Respiratory Rate 18 20 20 Blood Pressure 165/81 H Pulse Oximetry 95 94 95 Oxygen Delivery Nasal Cannula Oxygen Flow Rate 2 03/26/23 20:00 03/27/23 00:00 03/27/23 04:00 Temperature Pulse Rate 67 80 100 Respiratory Rate Blood Pressure Pulse Oximetry Oxygen Delivery Oxygen Flow Rate 03/27/23 05:35 03/27/23 08:51 03/27/23 09:11 Temperature 100.7 F H 99.4 F Pulse Rate 105 H 104 H Respiratory Rate 20 Blood Pressure 127/71 Pulse Oximetry 91 Oxygen Delivery Oxygen Flow Rate 03/27/23 08:00 03/27/23 13:19 03/27/23 12:51 Temperature 102.4 F H 102.4 F H Pulse Rate 109 H Respiratory Rate 24 H Blood Pressure 183/87 H Pulse Oximetry 94 90 Oxygen Delivery Nasal Cannula Oxygen Flow Rate 1 Intake/Output Intake/Output: Intake & Output 03/24/23 03/25/23 03/26/23 03/27/23 23:59 23:59 23:59 23:59 Intake Total 690 780 Balance 690 780 Meds/Results Medications: Active Medications Generic Name Dose Route Start Last Admin Trade Name Freq PRN Reason Stop Dose Admin Acetaminophen 500 mg 03/26/23 11:06 03/27/23 13:19 Acetaminophen 500 Mg Tablet PO 500 mg Q6H PRN Administration Mild Pain (1-3) or Fever Albuterol 2 puff 03/26/23 11:06 Albuterol Sulfate (*Sp) Aerosol 1 Puff INHALATION Q4H PRN Shortness Of Breath Enoxaparin Sodium 40 mg 03/27/23 09:00 03/27/23 09:12 Enoxaparin 40 Mg/0.4 Ml Syrin
[2023-03-27] MEDS: POTASSIUM CHLORIDE 20 MEQ TABLET.ER 40 MEQ PO (17:35)
[2023-03-27] MEDS: CLINDAMYCIN 600 MG/D5W 50 ML 600 MG/50 ML PIGGYBACK 100 MG IVPB ×2 (18:01→22:35)
[2023-03-27] MEDS: oxyCODONE HCL (*CRX) 5 MG TAB IR 10 MG PO (20:22)
[2023-03-28] VITALS (11 sets, daily range): BP systolic 110–147; BP diastolic 71–87; PULSE 78–114; RESP 16–22; TEMP 36.3–38.2; O2SAT 86–92
[2023-03-28] MEDS: oxyCODONE/ACETAMINOPHEN (*CRX) 10-325 MG TABLET 1 TAB PO ×2 (04:33→20:31)
[2023-03-28] MEDS: CLINDAMYCIN 600 MG/D5W 50 ML 600 MG/50 ML PIGGYBACK 100 MG IVPB (04:37)
[2023-03-28 06:47] LABS: Hematocrit 37.6 % (37.0-47.0); Hemoglobin 12.2 g/dL (12.0-15.0); Mean Corpuscular HGB Conc 32.4 g/dl (32-36); Mean Corpuscular Hemoglobin 27.1 pg (26-34); Mean Corpuscular Volume 83.6 fl (80-100); Mean Platelet Volume 11.7 fl (7.4-10.4); Platelet Count Result 277 k/mm3 (150-375); Red Cell Distribution Width 16.4 % (11.5-14.5); White Blood Count 17.6 K/mm3 (4.5-10.0)
[2023-03-28 07:00] LABS: Anion Gap 5 mmol/L (8-16); Blood Urea Nitrogen 12 mg/dL (7-17); Calcium 7.8 mg/dL (8.4-10.2); Carbon Dioxide 23 mmol/L (22-30); Chloride 111 mmol/L (98-107); Estimated CRCL calculation 44 ml/min; Estimated Glomerular Filt Rate > 60; Glucose 115 mg/dL (65-110); Potassium 3.2 mmol/L (3.4-5.0); Sodium 139 mmol/L (137-145)
[2023-03-28] MEDS: SACUBITRIL/VALSARTAN 24-26 MG TABLET 1 TAB PO ×2 (08:39→21:12)
[2023-03-28] MEDS: ENOXAPARIN 40 MG/0.4 ML SYRINGE SUB-Q (08:39)
[2023-03-28] MEDS: POTASSIUM CHLORIDE 20 MEQ TABLET.ER 40 MEQ PO (08:40)
[2023-03-28] MEDS: SERTRALINE HCL 50 MG TABLET 100 MG PO (08:41)
[2023-03-28] MEDS: METOPROLOL SUCCINATE EXT REL 100 MG TABCR PO (08:41)
[2023-03-28] MEDS: oxyBUTYnin CHLORIDE XL 5 MG TAB.ER.24 PO (08:41)
[2023-03-28] MEDS: THERAPEUTIC MULTIVITAMINS/MINERALS TAB (*BKC) 1 TABLET PO (08:41)
[2023-03-28] MEDS: FUROSEMIDE 20 MG TABLET PO (08:42)
[2023-03-28] MEDS: PREGABALIN (*CRX) 50 MG CAPSULE 100 MG PO ×2 (08:42→21:12)
[2023-03-28] MEDS: oxyCODONE HCL (*CRX) 10 MG TAB SR 12HR PO ×2 (08:46→23:42)
[2023-03-28] MEDS: UMECLIDINIUM/VILANTEROL 62.5-25 MCG ELLIPTA 1 PUFF INHALATION (09:30)
--- NOTE | 2023-03-28 10:08 | PM.PNGS ---
Progress Note: A&P Assessment and Plan (1) Hematoma following procedure: Status: Acute Assessment and Plan: Subcutaneous hematoma noted on ultrasound yesterday. No increase in size today. No suggestion of overlying skin breakdown but quite a bit of bruising around the incisional site and epigastric incision is still very tender. Continue to observe. (2) History of incisional hernia repair: Code(s): Z98.890 - Other specified postprocedural states; Z87.19 - Personal history of other diseases of the digestive system Status: Acute Assessment and Plan: Repair intact. Hematoma as noted. No evidence of infection. (3) Hypokalemia: Code(s): E87.6 - Hypokalemia Status: Acute Assessment and Plan: Improved. Potassium 3.2 today. Continue supplements. (4) Fever: Code(s): R50.9 - Fever, unspecified Status: Acute Assessment and Plan: Resolved from yesterday morning. Encourage patient to ambulate and use spirometer. Most likely due to atelectasis, especially with epigastric tenderness from surgery. (5) Chronic anticoagulation: Code(s): Z79.01 - [facility] (current) use of anticoagulants Status: Chronic Assessment and Plan: Will need to hold anticoagulation until at least a week since patient has had hematoma developed following surgery. (6) Atrial fibrillation: Code(s): I48.91 - Unspecified atrial fibrillation Status: Chronic Assessment and Plan: No tachycardia. Heart rhythm stable, regular Subjective Subjective Date/Time Seen: 03/28/23 10:08 Post Op day: 2 Patient reports: no new complaints, still having pain (Epigastric incision, less than right after surgery but still very painful), tolerating a regular diet, bowel movement and afebrile (Fevers have resolved from yesterday) Interval history: Patient sitting in liquid BM, unaware she was doing so. Review of Systems Constitutional: Constitutional: Denies chills and Denies fever(s) Cardiovascular: Cardiovascular: Denies chest pain, Denies diaphoresis, Denies dyspnea and Denies paroxysmal nocturnal dyspnea Respiratory: Respiratory: Denies chest congestion, Denies cough and Denies dyspnea Integumentary/Breasts: Skin/Breast: Denies lesions and Denies rash Exam Const: General: comfortable and no acute distress Orientation/consciousness: patient oriented x3 GI: Inspection: incision (Bruised with swelling but no evidence of skin breakdown) GI Palp: Yes Soft to palpation, Yes Tenderness to palpation present (GI) (Especially tender at her incision.), No Guarding due to palpation present (GI) and No Rebound tenderness present Neuro: General: patient oriented x3 and no focal motor deficits Extrem: General: no calf tenderness and no edema Psych: Affect: normal affect Insight: Good insight present (Psych) Judgement: Good judgement present (Psych) Objective Data Vital Signs Vital Signs: Vital Signs - 24 hr 03/27/23 13:19 03/27/23 12:51 03/27/23 12:00 Temperature 39.1 C H 39.1 C H Pulse Rate 109 H 85 Respiratory Rate 24 H Blood Pressure 183/87 H Pulse Oximetry 90 Oxygen Delivery Oxygen Flow Rate 03/27/23 16:00 03/27/23 14:10 03/27/23 20:27 Temperature 36.6 C 37.3 C Pulse Rate 96 Respiratory Rate Blood Pressure Pulse Oximetry Oxygen Delivery Oxygen Flow Rate 03/27/23 20:00 03/27/23 22:19 03/27/23 20:00 Temperature 37.3 C Pulse Rate 118 H 106 H Respiratory Rate 20 Blood Pressure 152/77 H Pulse Oximetry 92 84 L Oxygen Delivery Nasal Cannula Oxygen Flow Rate 2 03/28/23 00:00 03/28/23 04:00 03/28/23 06:00 Temperature 36.3 C L Pulse Rate 90 78 92 Respiratory Rate 18 Blood Pressure 147/87 H Pulse Oximetry 86 L Oxygen Delivery Oxygen Flow Rate 03/28/23 08:29 03/28/23 09:30 03/28/23 09:30 Temperature 36.8 C Pulse Rate 87 85 85 Respiratory Rate 16 18 18 Blood Pressure 110/71
--- NOTE | 2023-03-28 10:14 | P.CDI_ITS ---
CDI Query Clarification Request Documented history of CHF. Furosemide and Entresto listed as home medications. Patient receiving Furosemide and Entresto. CHF noted in the assessment and plan. Please specify type and acuity of heart failure if known. * Acute * Chronic * Acute on Chronic * Unknown * Systolic * Diastolic * Combined Systolic and Diastolic * Unknown <Stephania Huerta RN - Last Filed: 03/28/23 10:18> Clarified Diagnosis Clarified Diagnosis: Chronic Systolic heart failure <Naif Roberts MD - Last Filed: 03/28/23 11:26>
--- NOTE | 2023-03-28 11:26 | PM.IMPN ---
Progress Note: A&P Assessment and Plan (1) Fever: Code(s): R50.9 - Fever, unspecified Status: Acute (2) Atrial fibrillation: Code(s): I48.91 - Unspecified atrial fibrillation Status: Chronic (3) History of incisional hernia repair: Code(s): Z98.890 - Other specified postprocedural states; Z87.19 - Personal history of other diseases of the digestive system Status: Acute Plan 67 year old female who had swelling in her epigastric incision of her laparoscopic cholecystectomy, repair bile duct injury on 12/04/2022 and repair bile duct with T-tube placement.? The patient was complaining of having some swelling to that area and some discomfort.? The patient had incisional hernia.? She had a open repair 2 cm epigastric incisional hernia with Ventralex underlay mesh per Dr. Chamberlain.? She has a history of COPD and does not chronically wear oxygen ? The patient was admitted by surgical team and the hospitalist group was asked to consult 1)Abdominal Pain at Surgical Site: with fever ?Developing infection Await USG Will start on IV clindamycin Monitor for leucocytosis Post op care as per primary team 2)H/o HF:c/w lasix, entresto, BB 3)H/o Afibb:Eliquis on hold 4)Code:Full 5)DVT ppx:SCD 6)Dispo:as per primary team 03/28/23 Surgical notes reviewed. Agree with current plan of care and treatment monitor abdominal wall hematoma closely. Eliquis is on hold. Monitor closely. Potassium is low will replace and monitor.. Subjective Date/time seen: 03/28/23 11:26 Patient was seen during the morning rounds today. Abdominal pain slightly better. No nausea or. No chest pain. Review of Systems Review of Systems: All systems reviewed & are unremarkable except as noted in HPI and below Constitutional: Constitutional: Reports as per HPI and Reports no additional constitutional complaints Eyes: Eyes: Reports as per HPI and Reports no additional eye complaints ENT: Reports system reviewed and no additional complaints, except as documented and Reports Normal hearing present Cardiovascular: Cardiovascular: Reports no additional cardiovascular complaints Respiratory: Respiratory: Reports no additional respiratory complaints and Reports no additional respiratory complaints Gastrointestinal: Gastrointestinal: Reports as per HPI and Reports no additional gastrointestinal complaints Musculoskeletal: Musculoskeletal: Reports no additional musculoskeletal complaints Integumentary/Breasts: Skin/Breast: Reports system reviewed and no additional complaints, except as docu and Reports as per HPI Neurologic: Reports system reviewed and no additional complaints, except as documented, Reports as per HPI and Reports Normal hearing present Psychiatric: Psychiatric: Reports no additional psychiatric complaints and Reports as per HPI Endocrine: Endocrine: Reports no additional endocrine complaints Hematologic/Lymphatic: Hematologic/Lymphatic: Reports no additional hematologic/lymphatic complaints Allergic/Immunologic: Allergic/Immunologic: Reports no additional allergic/immunologic complaints Exam Const: General: cooperative, healthy appearing, comfortable, no acute distress, well developed, alert, awake, Physically active, average body habitus, well nourished and thin Nutritional Appearance: average body habitus, well nourished and thin Orientation/consciousness: oriented to person, oriented to place, oriented to time and patient oriented x3 Limitations: no limitations Other: The patient awakens was stimuli but falls back asleep easily. HENMT: Head: normal to inspection, No palpable skull fracture present, normocephalic and atraumatic Ears: hearing grossly normal bilaterally and external ears normal Face/Nose/Sinus: Normal external nose present and Normal nares present Mouth: Yes moist mucous membranes Eyes: General: appearance normal, both eyes and all related structures Alignment and Position: ali
[2023-03-28] MEDS: oxyCODONE HCL (*CRX) 5 MG TAB IR 10 MG PO ×2 (12:20→17:10)
[2023-03-28] MEDS: POTASSIUM CHLORIDE 20 MEQ TABLET.ER PO (17:11)
--- NOTE | 2023-03-28 17:16 | PC.NURSE ---
I have administered pt's meds as they are scheduled and every time they are scheduled. I have administered pt's PRN pain meds (Roxicodone) as they are available which includes times for administration as 0900, 1300, and 1700. Pt complained that she wants more narcotics more often and that when she is at home she takes them in higher doses and more frequently. I attempted to explain to pt that I am legally only allowed to administer narcotics as they are scheduled and ordered by the doctor regardless of what she may or may not do at home. Furthermore, I explained that the doctor has the pain meds that she is referring to scheduled for specific times and that is exactly when she got them. Pt's then began yelling at me telling me that I was barking at the pt. I was very deliberately speaking in a calm, nearly monotone, educational tone. I replied that I was not barking at pt but explaining the limitations of what I am legal allowed to do. Pt then accused me being a nurse who clearly doesn't care about doing her job which is relieving the extreme pain of a patient. I attempted to explain yet again that I gave all the meds available as ordered when available and that I was not willing to risk my license or going to [facility] to give her meds that she does not have ordered. Pt's continued yelling at me.
[2023-03-29] VITALS (16 sets, daily range): BP systolic 70–160; BP diastolic 40–94; PULSE 76–154; RESP 16–20; TEMP 37.1–37.9; O2SAT 90–92
[2023-03-29] MEDS: oxyCODONE/ACETAMINOPHEN (*CRX) 10-325 MG TABLET 1 TAB PO (06:28)
[2023-03-29 07:19] LABS: Hematocrit 33.4 % (37.0-47.0); Hemoglobin 10.5 g/dL (12.0-15.0); Mean Corpuscular HGB Conc 31.4 g/dl (32-36); Mean Corpuscular Volume 85.9 fl (80-100); Platelet Count Result 248 k/mm3 (150-375); Red Blood Count 3.89 M/mm3 (4.2-5.4); Red Cell Distribution Width 16.6 % (11.5-14.5); White Blood Count 18.7 K/mm3 (4.5-10.0)
[2023-03-29 07:26] LABS: Anion Gap 6 mmol/L (8-16); Blood Urea Nitrogen 12 mg/dL (7-17); Carbon Dioxide 19 mmol/L (22-30); Chloride 108 mmol/L (98-107); Estimated CRCL calculation 58 ml/min; Estimated Glomerular Filt Rate > 60; Glucose 96 mg/dL (65-110); Potassium 3.8 mmol/L (3.4-5.0); Sodium 133 mmol/L (137-145)
[2023-03-29] MEDS: POTASSIUM CHLORIDE 20 MEQ TABLET.ER PO ×2 (08:31→17:05)
[2023-03-29] MEDS: SACUBITRIL/VALSARTAN 24-26 MG TABLET 1 TAB PO ×2 (08:31→23:24)
[2023-03-29] MEDS: METOPROLOL SUCCINATE EXT REL 100 MG TABCR PO (08:31)
[2023-03-29] MEDS: oxyCODONE HCL (*CRX) 10 MG TAB SR 12HR PO (08:31)
[2023-03-29] MEDS: oxyBUTYnin CHLORIDE XL 5 MG TAB.ER.24 PO (08:31)
[2023-03-29] MEDS: ENOXAPARIN 40 MG/0.4 ML SYRINGE SUB-Q (08:32)
[2023-03-29] MEDS: THERAPEUTIC MULTIVITAMINS/MINERALS TAB (*BKC) 1 TABLET PO (08:32)
[2023-03-29] MEDS: SERTRALINE HCL 50 MG TABLET 100 MG PO (08:32)
[2023-03-29] MEDS: PREGABALIN (*CRX) 50 MG CAPSULE 100 MG PO (08:32)
[2023-03-29] MEDS: FUROSEMIDE 20 MG TABLET PO (08:32)
[2023-03-29] MEDS: oxyCODONE HCL (*CRX) 5 MG TAB IR 10 MG PO ×3 (08:33→17:05)
[2023-03-29] MEDS: UMECLIDINIUM/VILANTEROL 62.5-25 MCG ELLIPTA 1 PUFF INHALATION (10:30)
--- NOTE | 2023-03-29 14:56 | PM.PNGS ---
Progress Note: A&P Assessment and Plan (1) Hematoma following procedure: Status: Acute Assessment and Plan: She has a wound hematoma that appears to be stable. There is no obvious evidence of cellulitis around the incision. No fever but her white blood cell count elevated from 17,000 yesterday to 18,000 today. We will trend this for another day and if he continues to increase then may need to start an oral antibiotic and consider drainage of the hematoma if it is infected. Otherwise she is doing well clinically. Continue present management and supportive care. (2) History of incisional hernia repair: Code(s): Z98.890 - Other specified postprocedural states; Z87.19 - Personal history of other diseases of the digestive system Status: Acute Assessment and Plan: Hernia repair appears to be intact. Small operative hematoma hopefully will resolve on its own without need for drainage. Subjective Subjective Date/Time Seen: 03/29/23 14:56 Interval history: Patient is lying in bed in no acute distress. She does complain having some mild epigastric abdominal pain around her incision. She states the redness around incision has improved since yesterday. White blood cell count [place] [address] yesterday and is slightly increased to 18,000 today. She remains afebrile. Tolerating a regular diet without difficulty. Review of Systems Review of Systems: The remainder of the review of systems to include constitutional, HEENT, cardiovascular, respiratory, GI, , integumentary, musculoskeletal, endocrine, immunologic, hematologic, psychiatric, and neurologic are all negative except for which is mentioned above in the HPI. Exam Narrative: Incision the upper epigastric region of the abdomen is intact without any drainage. However there is some edema and hematoma under the incision with minimal warmth. Const: General: comfortable and no acute distress Resp: Effort & Inspection: normal respiratory effort Auscultation: clear to auscultation bilaterally Cardio: Rate: regular rate Rhythm: regular rhythm Psych: Mental Status: mental status grossly normal Affect: normal affect Objective Data Vital Signs Vital Signs: Vital Signs - 24 hr 03/28/23 16:00 03/28/23 20:00 03/28/23 22:00 Temperature 36.6 C Pulse Rate 112 H 91 Respiratory Rate 16 Blood Pressure 137/73 Pulse Oximetry 90 Oxygen Delivery Room Air 03/28/23 20:00 03/29/23 00:00 03/29/23 04:00 Temperature Pulse Rate 90 80 83 Respiratory Rate Blood Pressure Pulse Oximetry Oxygen Delivery 03/29/23 06:00 03/29/23 08:30 03/29/23 08:30 Temperature 37.1 C Pulse Rate 91 76 Respiratory Rate 16 Blood Pressure 124/72 Pulse Oximetry 90 Oxygen Delivery Room Air 03/29/23 12:00 03/29/23 14:00 Temperature 37.1 C Pulse Rate 76 108 H Respiratory Rate 20 Blood Pressure 92/55 L Pulse Oximetry 90 Oxygen Delivery Intake/Output Intake/Output: Intake & Output 03/26/23 03/27/23 03/28/23 03/29/23 23:59 23:59 23:59 23:59 Intake Total 690 1520 1442 1138 Balance 690 1520 1442 1138 Meds/Results Medications: Active Medications Generic Name Dose Route Start Last Admin Trade Name Freq PRN Reason Stop Dose Admin Acetaminophen 500 mg 03/26/23 11:06 03/27/23 20:27 Acetaminophen 500 Mg Tablet PO 500 mg Q6H PRN Administration Mild Pain (1-3) or Fever Albuterol 2 puff 03/26/23 11:06 Albuterol Sulfate (*Sp) Aerosol 1 Puff INHALATION Q4H PRN Shortness Of Breath Enoxaparin Sodium 40 mg 03/27/23 09:00 03/29/23 08:32 Enoxaparin 40 Mg/0.4 Ml Syringe SUB-Q 40 mg DAILY FEMI Administration Furosemide 20 mg 03/27/23 09:00 03/29/23 08:32 Furosemide 20 Mg Tablet PO 20 mg QAM FEMI Administration Hydromorphone HCl 1 mg 03/26/23 11:06 03/27/23 05:39 Hydromorphone Hcl Inj (*Crx) 1 Mg/Ml Syr IV PUSH 1 mg Q2H PRN Administratio
--- NOTE | 2023-03-29 15:16 | PM.IMPN ---
Progress Note: A&P Assessment and Plan (1) Hematoma following procedure: Status: Acute Assessment and Plan: 03/29 LEYDI-INCSIONAL WARMTH TENDERNESS ERYTHEMA AND WORSENING LEUKOCYTOSIS WELL FALLING BLOOD PRESSURE ARE CONCERNING FOR POSSIBLE INFECTION 03/[address] 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 Status: Chronic Assessment and Plan: ELIQUIS ON HOLD DUE TO LIKELY POSTOPERATIVE HEMATOMA (3) Atrial fibrillation: Code(s): I48.91 - Unspecified atrial fibrillation Status: Chronic Assessment and Plan: CLINICALLY STABLE (4) CHF (congestive heart failure), NYHA class I: Code(s): I50.9 - Heart failure, unspecified Status: Acute Assessment and Plan: CLINICALLY COMPENSATED (5) History of incisional hernia repair: Code(s): Z98.890 - Other specified postprocedural states; Z87.19 - Personal history of other diseases of the digestive system Status: Acute (6) Personal history of nicotine dependence: Code(s): Z87.891 - Personal history of nicotine dependence Status: Acute Assessment and Plan: ABSTAINING (7) COPD (chronic obstructive pulmonary disease): Qualifiers: COPD type: emphysema Emphysema type: unspecified Qualified Code(s): J43.9 - Emphysema, unspecified Code(s): J44.9 - Chronic obstructive pulmonary disease, unspecified Status: Chronic Assessment and Plan: CLINICALLY STABLE (8) Chronic back pain: Code(s): M54.9 - Dorsalgia, unspecified; G89.29 - Other chronic pain Status: Chronic Assessment and Plan: STABLE PER HISTORY (9) Chronic, continuous use of opioids: Code(s): F11.90 - Opioid use, unspecified, uncomplicated Status: Acute Assessment and Plan: MAY HAVE OPIOID INDUCED HYPERALGESIA Subjective Date/time seen: 03/29/23 15:16 Interval history: Although she says her pain is a little less and the wound site looks a little better she still complains of severe pain with very light touch to the entire area around the wound. She is tolerating her diet. Denied any fevers chills or sweats. Denies any chest pain or shortness of breath out of the ordinary for her. Denied edema. Claims to have normal bowel movement and urination without dysuria or frequency. Denied abnormal bleeding. Review of Systems Review of Systems: All systems reviewed & are unremarkable except as noted in HPI and below Exam Narrative: HEENT: PERRL, sclerae nonicteric, pharyngeal mucosa pink and intact NECK: No JVD, adenopathy, or thyromegaly CHEST: Clear to auscultation. Normal effort. HEART: NL S1/S2, regular, no murmur ABDOMEN: BS+, INDURATION AND ERYTHEMA OF ABDOMINAL WALL AROUND HER INCISION. INCISION ITSELF LOOKS CLEAN. HOWEVER THE ABDOMINAL WALL IS WARM AND FIRM. IT IS EXQUISITELY TENDER TO THE LIGHTEST PALPATION. EXTREMITIES: No cyanosis, edema, or clubbing NEUROLOGIC: CN intact and symmetric to inspection. MUSCULOSKELETAL: Tone and strength symmetric. PSYCH: Alert. Oriented to person, place, and time. Objective Data Vital Signs Vital Signs: Vital Signs - 24 hr 03/28/23 16:00 03/28/23 20:00 03/28/23 22:00 Temperature 98 F Pulse Rate 112 H 91 Respiratory Rate 16 Blood Pressure 137/73 Pulse Oximetry 90 Oxygen Delivery Room Air 03/28/23 20:00 03/29/23 00:00 03/29/23 04:00 Temperature Pulse Rate 90 80 83 Respiratory Rate Blood Pressure Pulse Oximetry Oxygen Delivery 03/29/23 06:00 03/29/23 08:30 03/29/23 08:30 Temperature 98.7 F Pulse Rate 91 76 Respiratory Rate 16 Blood Pressure 124/72 Pulse Oximetry 90 Oxygen
--- NOTE | 2023-03-29 19:58 | PC.NURSE ---
pt hr jumped up to 160's on tele, vital signs 90% ra, 98/55 102, 140HR, RR 16. post hernia repair 03/26, US showed hematoma RQL red and warm. wbc elevated 18.2 on today labs
--- NOTE | 2023-03-29 20:06 | PC.NURSE ---
spoken with MD carroll and SARTHAK Shukla, pt to start zosyn q6h 3.375 mg and 1 L bolus NS now.
[2023-03-29 20:42] LABS: Basophils Percent Auto 0.1 % (0.2-1.2); Eosinophils Absolute Auto 0.1 K/mm3 (0-0.3); Eosinophils Percent Auto 0.3 % (0-4.4); Hematocrit 32.2 % (37.0-47.0); Hemoglobin 10.4 g/dL (12.0-15.0); Immature Granulocyte Absolute 0.07 K/mm3 (0.00-0.031); Immature Granulocyte Percent A 0.4 % (0-0.5); Lymphocytes Absolute Auto 1.81 K/mm3 (0.9-3.2); Lymphocytes Percent Auto 11.5 % (18.3-44.2); Mean Corpuscular HGB Conc 32.3 g/dl (32-36); Mean Corpuscular Hemoglobin 27.3 pg (26-34); Mean Corpuscular Volume 84.5 fl (80-100); Mean Platelet Volume 11.9 fl (7.4-10.4); Monocytes Absolute Auto 0.6 K/mm3 (0.1-0.6); Neutrophils Absolute Auto 13.2 K/mm3 (1.3-6.7); Neutrophils Percent Auto 83.7 % (45.5-73.1); Platelet Count Result 262 k/mm3 (150-375); Red Blood Count 3.81 M/mm3 (4.2-5.4); Red Cell Distribution Width 16.7 % (11.5-14.5); White Blood Count 15.8 K/mm3 (4.5-10.0)
[2023-03-29 21:11] LABS: Procalcitonin 0.3 ng/mL
--- NOTE | 2023-03-29 21:43 | PC.NURSE ---
bp 72/48
[2023-03-29] MEDS: SODIUM CHLORIDE 0.9% IV 1,000 ML 999 ML IV CONT ×2 (21:44→22:37)
--- NOTE | 2023-03-29 21:48 | PC.NURSE ---
SARTHAK Shukla confirmed zosyn 4.5g q6hrs iv
[2023-03-29] MEDS: PIPERACILLIN/TAZOBACTAM SOD 4.5 GM in SODIUM CHLORIDE 0.9% IV 100 ML 200 ML IVPB (21:57)
--- NOTE | 2023-03-29 22:33 | PC.NURSE ---
wound culture collected
[2023-03-29 23:13] LABS: Lactic Acid Reflex 0.6 mmol/L (0.7-2.0)
--- NOTE | 2023-03-29 23:23 | PM.EVENT ---
Event Note Event Note Event Note: The patient has been in AFib with RVR this evening. She has been hypotensive. I am giving her L of fluid and there was no change in her blood pressure. During the 2nd L of IV fluids the patient's blood pressure came up. We are attempting to give her digoxin. She will receive her pain medications. The patient is awake and talking to was without difficulty. The patient states that she feels anxious and is having a lot of discomfort. I will be transferring the patient to IMU. Her lactic was normal. The patient does have a history of atrial fibrillation and she also has a history of congestive heart failure with an echo reading an EF of approximately 45-50%. The patient was started on Zosyn today. Her blood cultures are pending. Her incision is well approximated but redder than when I saw her the other day and warm to touch. Patient is afebrile and her white count is down to 15.8 from 18.7. Digoxin was given versus metoprolol because her blood pressure was low. AFib RVR with heart rate in the 160s. The patient is currently on Eliquis.
[2023-03-29] MEDS: HYDROmorphone HCL INJ (*CRX) 1 MG/ML SYR IV PUSH (23:24)
[2023-03-29] MEDS: DIGOXIN INJ 250 MCG/ML 2 ML AMP (*BKC) 500 MCG IV PUSH (23:43)
[2023-03-29] MEDS: DIGOXIN INJ 250 MCG/ML 2 ML AMP (*BKC) IV PUSH (23:49)
[2023-03-30] VITALS (99 sets, daily range): BP systolic 62–128; BP diastolic 38–90; PULSE 55–159; RESP 11–31; TEMP 36.6–38.3; O2SAT 60–98
--- NOTE | 2023-03-30 00:29 | PC.NURSE ---
This patient, Chantal Grove, was received from [[id number] ] on 03/30/23 at 0029 for closer monitoring of hypotension and tachycardia. Patient/family oriented to unit policies and routines
--- NOTE | 2023-03-30 00:39 | PC.NURSE ---
called to inform moved to 212 IMU
[2023-03-30] MEDS: SODIUM BICARBONATE 8.4% 50 MEQ/50 ML SYRINGE IV PUSH ×2 (00:41→03:06)
[2023-03-30] MEDS: SODIUM CHLORIDE 0.9% IV 500 ML IV CONT (03:06)
--- NOTE | 2023-03-30 04:05 | PC.NURSE ---
This patient, Chantal Grove, was transferred to [[id number] ] on 03/30/23 at 0340 for hypotension requiring pressors. Personal belongings sent with patient. Report given to [LAVERNE Cervantes ]. Appropriate documentation sent with patient.
[2023-03-30] MEDS: LIDOCAINE HCL 1% LOCAL INJ 20 ML VIAL (04:42)
--- NOTE | 2023-03-30 05:18 | PM.EVENT ---
Event Note Event Note Event Note: Around 03:00 nursing staff called as the patient had recurrence of hypotension. Earlier in the evening patient had spiked fever was tachycardic and hypotensive. She received 2 L in fluid bolus. Her blood pressures did improved. However just after the 2 L bolus nursing staff proceeded to administer the patient's Entresto and metoprolol about the time that the nurse practitioner was placing orders to hold the medications. The patient's blood pressure with the next vitals check had dropped. The nursing staff notified me immediately that the patient's blood pressures were 83 systolic. When I went to evaluate the patient's the patient's blood pressures had dropped further to 63 systolic. The patient reports that she was relatively asymptomatic. But she did agree to be moved to the ICU and have a central line placement for pressors. A given additional bolus of 500 mL of fluid and an amp of sodium bicarb. During the process of the central line the patient's blood pressures did improve to 89 systolic. However the patient had difficult anatomy for central line placement. I got blood return and threaded the guidewire the 1st time but guidewire would not completely advanced. I a attempted line placement again and although the guidewire threaded whenever the x-ray was performed the guidewire had traveled to what looks like the subclavian vein. Subsequently have requested nursing staff removed the central line. Will give the patient peripheral Levophed until morning. The patient states that she does not want to go through another central line attempt and I do not blame her. Assessment: Septic shock the patient is on Zosyn. I had planned to give the patient MRSA coverage with vancomycin but she has vancomycin listed as an allergy. Will add doxycycline. Will check a cheetah score. Will place the patient on IV fluid hydration. Will provide Levophed. Patient has been moved to the ICU. Tool And Die Technician has been consulted. Hypotension multifactorial due to septic shock, AFib RVR and iatrogenic medication administration--will continue supportive care with fluids and Levophed. Patient may need central line and hypotension persist. Hopefully when the patient's antihypertensives are out of her system and antibiotics have had a chance to circulate systemically hypotension will resolved. Will place Hardwick catheter to monitor strict I&O's and to obtain urine specimen to rule out urinary tract source of infection. The patient has been incontinent of urine and nursing staff has not been able to obtain UA for evaluation. Metabolic acidosis--patient has received a total of 2 amps of bicarb between last night and today. Will repeat BMP this a.m.. 95 minute spent in critical care activities. Due to a high probability of clinically significant, life threatening deterioration, the patient required my highest level of preparedness to intervene emergently and I personally spent this critical care time directly and personally managing the patient. This critical care time included obtaining a history; examining the patient; pulse oximetry; ordering and review of studies; arranging urgent treatment with development of a management plan; evaluation of patient's response to treatment; frequent reassessment; and discussions with other providers. It was exclusive of separately billable procedures and treating other patients and teaching time. Please see Assessment and Plan section and the rest of the note for further information on patient assessment and treatment.
--- NOTE | 2023-03-30 06:17 | WPDPROCEDUR ---
Procedures Central Line Placement Right IJ: Central Line Date: 03/30/23 Central Line Time: 04:15 Discussed w/ the patient/family/POA,the placement of a central venous catheter, including its clinical necessity/indication & associated potential risks, benifits and alternatives.: Yes The patient/family/POA understand(s) and acknowledge(s) the need to proceed with central venous catheter insertion as an important element of the patient's clinical management.: Yes Consent: I have discussed with the patient and/or surrogate, the non-emergent placement of a central venous catheter, including its clinical necessity/indication and associated potential risks and complications. The patient and/or surrogate understand(s) and acknowledge(s) the need to proceed with central venous catheter insertion as an important element of the patient's clinical management. Time Out Performed: Yes Patient Position: trendelenburg Patient placed on monitor/pulse ox: Yes Provider Prep: mask, sterile gown, sterile gloves, Max. sterile barrier precautions, cap and hand hygiene with conventional soap/water or alcohol based hand rub Central line prep: 2% Chlorhexidine scrub Local anesthesia used: lidocaine 1% Amount of anesthesia used (ml): 10 Sterile US Technique with sterile gel/sterile probe covers: Yes Central line lumen inserted: triple [place]: 7 Length (cm): 16 Depth of Insertion (cm): 15 Post Procedure: sutured in place, good blood return, all ports aspirated, flushed, capped, transparent dressing, securement product and aseptic technique maintained throughout procedure Post procedure x-ray: no pneumothorax seen and other (Central line traverses down to the right subclavian) Additional comments: Post insertion x-ray demonstrates central line turning right in going down the right subclavian. Central line was subsequently removed
[2023-03-30 07:24] LABS: Basophils Percent Auto 0.3 % (0.2-1.2); Eosinophils Absolute Auto 0.1 K/mm3 (0-0.3); Eosinophils Percent Auto 0.9 % (0-4.4); Hematocrit 34.6 % (37.0-47.0); Hemoglobin 10.9 g/dL (12.0-15.0); Immature Granulocyte Absolute 0.04 K/mm3 (0.00-0.031); Immature Granulocyte Percent A 0.4 % (0-0.5); Lymphocytes Absolute Auto 0.58 K/mm3 (0.9-3.2); Lymphocytes Percent Auto 5.8 % (18.3-44.2); Mean Corpuscular HGB Conc 31.5 g/dl (32-36); Mean Corpuscular Volume 85.9 fl (80-100); Mean Platelet Volume 12.1 fl (7.4-10.4); Monocytes Absolute Auto 0.2 K/mm3 (0.1-0.6); Monocytes Percent Auto 1.6 % (2.6-8.5); Neutrophils Absolute Auto 9.1 K/mm3 (1.3-6.7); Platelet Count Result 245 k/mm3 (150-375); Red Blood Count 4.03 M/mm3 (4.2-5.4); Red Cell Distribution Width 16.8 % (11.5-14.5)
[2023-03-30 07:33] LABS: Anion Gap 6 mmol/L (8-16); Blood Urea Nitrogen 16 mg/dL (7-17); Calcium 7.5 mg/dL (8.4-10.2); Carbon Dioxide 23 mmol/L (22-30); Chloride 108 mmol/L (98-107); Estimated CRCL calculation 44 ml/min; Estimated Glomerular Filt Rate > 60; Glucose 105 mg/dL (65-110); Potassium 3.6 mmol/L (3.4-5.0); Sodium 137 mmol/L (137-145)
--- NOTE | 2023-03-30 08:43 | PM.IMPN ---
Progress Note: A&P Assessment and Plan (1) Septic shock: Code(s): A41.9 - Sepsis, unspecified organism; R65.21 - Severe sepsis with septic shock Status: Acute Assessment and Plan: Continue pressors, fluids, broad spectrum antibx (2) Hematoma following procedure: Status: Acute Assessment and Plan: 03/29 LEYDI-INCSIONAL WARMTH TENDERNESS ERYTHEMA AND WORSENING LEUKOCYTOSIS WELL FALLING BLOOD PRESSURE ARE CONCERNING FOR POSSIBLE INFECTION 03/[address] Fierro and will withhold antibiotics unless white count continues to climb or she becomes febrile or has other indicators of acute infection 03/29 procalcitonin and CBC with differential pending this afternoon 03/30 D/w Dr. Fierro and Dr. Dyer and to continue broad spectrum antibx coverage and go to OR today for I/D (3) Chronic anticoagulation: Code(s): Z79.01 - intermediate (current) use of anticoagulants Status: Chronic Assessment and Plan: ELIQUIS ON HOLD DUE TO LIKELY POSTOPERATIVE HEMATOMA (4) Atrial fibrillation: Code(s): I48.91 - Unspecified atrial fibrillation Status: Chronic Assessment and Plan: CLINICALLY STABLE (5) CHF (congestive heart failure), NYHA class I: Code(s): I50.9 - Heart failure, unspecified Status: Acute Assessment and Plan: CLINICALLY COMPENSATED Holding sac/lynn and metoprolol due to hypotension (6) History of incisional hernia repair: Code(s): Z98.890 - Other specified postprocedural states; Z87.19 - Personal history of other diseases of the digestive system Status: Acute (7) Personal history of nicotine dependence: Code(s): Z87.891 - Personal history of nicotine dependence Status: Acute Assessment and Plan: ABSTAINING (8) COPD (chronic obstructive pulmonary disease): Qualifiers: COPD type: emphysema Emphysema type: unspecified Qualified Code(s): J43.9 - Emphysema, unspecified Code(s): J44.9 - Chronic obstructive pulmonary disease, unspecified Status: Chronic Assessment and Plan: CLINICALLY STABLE (9) Chronic back pain: Code(s): M54.9 - Dorsalgia, unspecified; G89.29 - Other chronic pain Status: Chronic Assessment and Plan: STABLE PER HISTORY (10) Chronic, continuous use of opioids: Code(s): F11.90 - Opioid use, unspecified, uncomplicated Status: Acute Assessment and Plan: MAY HAVE OPIOID INDUCED HYPERALGESIA Subjective Date/time seen: 03/30/23 08:43 Interval history: Some discharge from her abdominal wound. Still very red swollen and exquisitely tender. Temp last night to over 102. Started on broad-spectrum antibiotics and transferred to ICU due to hypotension likely septic shock. Overall she is feeling okay today otherwise. Not having any chest pain or shortness of breath weakness or numbness or pain other than at her incision site. Review of Systems Review of Systems: All systems reviewed & are unremarkable except as noted in HPI and below Exam Narrative: HEENT: PERRL, sclerae nonicteric, pharyngeal mucosa pink and intact NECK: No JVD, adenopathy, or thyromegaly CHEST: Clear to auscultation. Normal effort. HEART: NL S1/S2, regular, no murmur ABDOMEN: BS+, INDURATION AND ERYTHEMA OF ABDOMINAL WALL AROUND HER INCISION. INCISION ITSELF LOOKS CLEAN. HOWEVER THE ABDOMINAL WALL IS WARM AND FIRM. IT IS EXQUISITELY TENDER TO THE LIGHTEST PALPATION. EXTREMITIES: No cyanosis, edema, or clubbing NEUROLOGIC: CN intact and symmetric to inspection. MUSCULOSKELETAL: Tone and strength symmetric. PSYCH: Alert. Oriented to person, place, and time. Objective Data Vital Signs Vital Signs: Vital Signs - 24 hr 03/29/23 12:00 03/29/23 14:00 03/29/23 15:40 Temperature 98.7 F Pulse Rate 76 108 H 88 Respiratory Rate 20 Blood Pressure 92/55 L 103/63 Pulse Oximetry 90 Oxygen Delivery Oxygen Flow Rate
[2023-03-30] MEDS: oxyCODONE/ACETAMINOPHEN (*CRX) 5-325 MG TABLET 1 TABLET PO ×2 (08:59→16:07)
[2023-03-30] MEDS: UMECLIDINIUM/VILANTEROL 62.5-25 MCG ELLIPTA 1 PUFF INHALATION (09:31)
[2023-03-30] MEDS: PIPERACILLIN/TAZOBACTAM SOD 4.5 GM in SODIUM CHLORIDE 0.9% IV 100 ML 200 ML IVPB ×3 (10:29→20:20)
[2023-03-30 10:55] LABS: Appearance Urine Cloudy (Clear); Bacteria Urine None Seen /hpf; Bilirubin Urine Negative (Negative); Blood Urine 2+ (Negative); Color Urine Yellow (Yellow); Glucose Urine UA Negative (Negative); Ketones Urine Negative (Negative); Leukocyte Esterase Ur 2+ LEU/UL (Negative); Nitrate Urine Negative (Negative); Non Pathogenic Casts 0-2; Protein Urine 2+ mg/dL (Negative); Squamous Epithelial Cell Urine None seen /hpf (Few); Urobilinogen Urine 0.2 mg/dL (<2.0); WBC Urine >100 /hpf; pH Urine 5.5 (5.0-9.0)
--- NOTE | 2023-03-30 10:55 | WPDCNINT ---
Assessment and Plan Assessment and plan (1) Sepsis: Qualifiers: Sepsis acute organ dysfunction status: without acute organ dysfunction Sepsis type: sepsis due to unspecified organism Qualified Code(s): A41.9 - Sepsis, unspecified organism Code(s): A41.9 - Sepsis, unspecified organism Status: Resolved Assessment and Plan: Secondary to infection at the surgical site. Exam as above Hypotension improved with IV fluids and patient has not required any vasopressors at this time. Lactic acid level was normal Discussed with general surgery Dr. Chang who examined the patient He is planning to take patient to OR today for incision and and drainage and may apply a wound VAC Patient started on empiric Zosyn. I will switch doxycycline to daptomycin for MRSA. Patient is allergic to vancomycin Blood cultures are growing Enterococcus CT done yesterday showed Nonorganized appearing small amount of fluid with a few foci of gas within the subcutaneous tissues along the anterior epigastric wall likely related to a reported recent epigastric incisional hernia repair. 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 1. Complete two-dimensional, color flow and Doppler transthoracic echocardiogram is performed. ? 2. The inferoseptal wall, basal inferior wall, mid inferior wall, basal anteroseptal, and mid anteroseptal are hypokinetic. ? 3. Left ventricular systolic function is mildly reduced, estimated at 45-50%. ? 4. There is mildly increased left ventricular wall thickness. ? 5. The left ventricular diastolic function is normal. ? 6. Global longitudinal strain is abnormal at -16 %. ? 7. Right ventricular chamber dimension is mildly enlarged. ? 8. Left atrial chamber dimension is mildly enlarged. ? 9. There is mild aortic valve stenosis with a peak velocity of 166 cm/s, mean gradient of 6 mmHg, and aortic valve area of 1.7 cm2. ? 10. There is severe aortic valve calcification. ? 11. There is mild to moderate mitral valve regurgitation. ? 12. There is mild tricuspid valve regurgitation. ? 13. Strain analysis performed. Cautious IV fluids in light of sepsis (5) Incisional hernia: Code(s): K43.2 - Incisional hernia without obstruction or gangrene Status: Acute Assessment and Plan: Status post surgery See above (6) COPD (chronic obstructive pulmonary disease): Qualifiers: COPD type: emphysema Emphysema type: unspecified Qualified Code(s): J43.9 - Emphysema, unspecified Code(s): J44.9 - Chronic obstructive pulmonary disease, unspecified Status: Chronic Assessment and Plan: Stable and not in exacerbation Plan DVT prophylaxis -SCDs Nutrition -NPO at this time for surgery Code Status - Full Code Case discussed with Dr. Fierro from General surgery and Dr. Ta from internal medicine Total Critical Care Time - 45 minutes Due to a high probability of clinically significant, life threatening deterioration, the patient required my highest level of preparedness to intervene emergently and I personally spent this critical care time directly and personally managing the patient. This critical care t
[2023-03-30 11:04] LABS: Specific Grav Ur 1.045 (1.001-1.035)
[2023-03-30 11:05] LABS: Add Urine Microscopic? YES
--- NOTE | 2023-03-30 11:27 | WPDHPUPDATE1 ---
History and Physical Update Update Date/Time: 03/30/23 11:27 History and Physical has been reviewed, including an updated exam of the patient. There are NO changes in the patient's condition. Risks, benefits, and alternatives have been discussed and questions answered. Patient agrees to proceed with procedure.
--- NOTE | 2023-03-30 11:27 | WPDPN ---
Progress Note: A&P Assessment and Plan (1) Septic shock: Code(s): A41.9 - Sepsis, unspecified organism; R65.21 - Severe sepsis with septic shock Status: Acute Assessment and Plan: Clinically she appears the have hypotension due to likely septic shock. The most likely source is the wound hematoma. Will proceed to the operating room today for incision and drainage of the infected wound hematoma. Continue with IV antibiotics. PICC line was placed today in the intensive care unit for central venous access. (2) Hematoma following procedure: Status: Acute Assessment and Plan: Likely infected and is the source for patient's sepsis. Will need operative drainage. We will try to salvage the underlying mesh. Possible placement of wound VAC today after drainage of the hematoma. Subjective Date/time seen: 03/30/23 11:27 Interval history: The patient is having increasing pain epigastric region of the abdomen where she has a postoperative hematoma measuring about 4cm in diameter. Her white blood cell count had increased yesterday at 18,000 but with administration of some IV antibiotics and strap back down to 10,000 however she has 91% neutrophils a left shift. No other obvious source of infection can be found at this time and there is worsening redness around the area of the incision consistent with a likely infected epigastric wall hematoma. She had some hypotension last evening with systolic pressures around 60 due to atrial fibrillation rapid ventricular response. She was loaded with digoxin which seem to get her rate controlled. She was also given a couple liters of IV fluid boluses as well. She was transferred to the intensive care unit because of her hypotension and on sent AFib. This morning I discussed with the industrial analyst and he feels that the most likely source of infection would be the hematoma and I would tend to agree with this as there is creasing pain and increased redness around the incision. Review of Systems Review of Systems: The remainder of the review of systems to include constitutional, HEENT, cardiovascular, respiratory, GI, , integumentary, musculoskeletal, endocrine, immunologic, hematologic, psychiatric, and neurologic are all negative except for which is mentioned above in the HPI. Exam GI: Other: Epigastric abdominal wall with increasing erythema and severe tenderness to palpation along the left subcostal and epigastric skin incision. There is no drainage at this time. Objective Data Vital Signs Vital Signs: Vital Signs - 24 hr 03/29/23 12:00 03/29/23 14:00 03/29/23 15:40 Temperature 37.1 C Pulse Rate 76 108 H 88 Respiratory Rate 20 Blood Pressure 92/55 L 103/63 Pulse Oximetry 90 Oxygen Delivery Oxygen Flow Rate 03/29/23 15:41 03/29/23 15:41 03/29/23 16:00 Temperature Pulse Rate 95 100 93 Respiratory Rate Blood Pressure 104/65 108/63 Pulse Oximetry Oxygen Delivery Oxygen Flow Rate 03/29/23 21:42 03/29/23 21:38 03/29/23 20:00 Temperature 37.9 C H Pulse Rate 140 H 140 H Respiratory Rate 16 16 Blood Pressure 72/48 L 98/55 L Pulse Oximetry 90 90 Oxygen Delivery Nasal Cannula Oxygen Flow Rate 3 03/29/23 23:43 03/29/23 22:32 03/29/23 23:49 Temperature 37.1 C Pulse Rate 154 H 114 H 154 H Respiratory Rate 16 Blood Pressure 70/40 L Pulse Oximetry 92 Oxygen Delivery Oxygen Flow Rate 03/29/23 20:00 03/30/23 00:47 03/30/23 00:00 Temperature 38.0 C H Pulse Rate 131 H 145 H 154 H Respiratory Rate 20 Blood Pressure 87/53 L Pulse Oximetry 96 Oxygen Delivery Oxygen Flow Rate 03/30/23 00:39 03/29/23 23:20 03/30/23 01:13 Temperature 38.3 C H Pulse Rate Respiratory Rate Blood Pressure 107/73 160/94 H Pulse Oximetry Oxygen Delivery Oxygen Flow Rate 03/30/23 00:40 03/30/23 03:10 03/30/23 04:09 Temperature 37.1 C Pulse Rate 114 H Respir
[2023-03-30] MEDS: LACTATED RINGERS 1,000 ML 30 ML IV CONT (11:50)
[2023-03-30 11:55] LABS: Toxigenic C. Diff NEGATIVE (NEGATIVE)
--- NOTE | 2023-03-30 12:46 | P.OP_ITS ---
Procedure Note - Detailed Date of Procedure 03/30/23 Pre-op Diagnosis Postoperative abdominal wall wound abscess Post-op Diagnosis Same Procedure Performed Incision and drainage of abdominal abscess with placement of wound VAC. Surgeon Asher Fierro MD Transformation Coach HUY Watts Anesthesia General Indications Patient is a 67-year-old who is 4 days status post repair of a epigastric incisional hernia with a small piece of Ventralight ST mesh measuring 6.4cm in diameter. Postoperatively she developed a small hematoma in the area but then yesterday had increasing white blood cell count of with a low-grade fever worsening pain and swelling redness at the hernia repair site. It appears that she has a wound infection and subcutaneous abscess. She presents now for drainage of the abscess. Findings Upon opening the skin there was approximately 10cc of the fluid which drained from the abscess cavity. A culture swab for aerobic, anaerobic, and Gram stain were sent to microbiology. I then explored the this cavity with my index finger and broke down a few small loculations. I could tell that 99% of the mesh was covered with tissue and fascia. There was 1 small area which had a 2mm area of exposed mesh. The wound VAC was placed irrigation and drainage of the abscess. The wound measured 8cm in length by 7cm in width by 1cm in depth. Description of Procedure After informed consent was obtained patient brought to the operating room where she was placed in supine position and general endotracheal anesthesia was administered. The upper abdominal region was then prepped and draped in usual sterile fashion. A time-out was then performed correctly identifying the patient as well as the procedure to be performed and verified she was on scheduled IV antibiotics. I then utilized a #11 scalp and incised the most fluctuant portion of the abscess cavity which was in line with the skin incision. With initial incision there was proximally drainage of 10cc of purulent fluid. This was cultured and sent to microbiology for evaluation. I further opened up the incision reveal subcutaneous cavity measuring 8cm in length by 7cm width by 1cm in depth. At the base the cavity was intact fascia pulled over the top of the mesh. It was a single area of about 2mm where the mesh was exposed. I then proceeded to close that small defect in the tissue utilizing a 2 0 monofilament PDS suture. I then irrigated out the incision with copious sterile saline solution. There is no further drainage of any pus. I then proceeded to place a wound VAC. A piece of black foam was cut to the appropriate size and placed into the subcutaneous cavity on top of the fascia. The clear adhesive dressing was then placed over the black foam and a small portion of the clear dressing was cut away. A suction pad was then placed on top of the foam and attached to the wound VAC device. The device was started and set to 125mm of mercury for suction. A check for air leaks was negative for any air leak. The area was then cleaned. The patient tolerated the procedure well no complications. All sponges, needles, and instrument counts were correct at the end procedure. EBL was __5_cc. The patient was awakened and taken to recovery in stable and satisfactory condition. Implants Black foam from wound VAC. Estimated Blood Loss 5 Drains No Packing Yes (Wound VAC) Pathology Other (Abscess culture sent to her biology) Complications No immediate complications Condition Stable Disposition ICU [facility] Billing Surgery - Charge Forward: Surgery Billing
--- NOTE | 2023-03-30 12:56 | WPDANESEPPF ---
Anes - Initial Pre Proc Eval Procedure: Operation Date: 03/30/23 10:45 Proposed Procedures p I&D Debride Back Chest Chest - Asher Fierro MD Date/Time: 03/30/23 12:56 Surgeon: Casimiro Chamberlain MD Pre Op Diagnosis: incisional hernia Patient Data Age: 67 Gender: F Height: 1.63 m Weight: 46.5 kg Last Vital Signs Temp 36.9 C 03/30/23 12:41 Pulse 103 H 03/30/23 12:41 Resp 19 03/30/23 12:41 BP 126/88 03/30/23 12:41 Pulse Ox 96 03/30/23 12:41 O2 Del Method Nasal Cannula 03/30/23 12:41 O2 Flow Rate 3 03/30/23 12:41 FiO2 32 03/30/23 11:26 Allergies Allergy/AdvReac Type Severity Reaction Status Date / Time atorvastatin Allergy Itching Verified 03/26/23 07:36 codeine Allergy Hives Verified 03/26/23 07:36 vancomycin Allergy Rash Verified 03/26/23 07:36 Cephalosporins AdvReac Diarrhea Verified 03/26/23 07:36 Home Medications Medication Instructions Recorded Confirmed Type pregabalin 100 mg capsule 100 mg PO BID 08/27/22 03/26/23 History sertraline 100 mg tablet 100 mg PO QAM 08/27/22 03/26/23 History apixaban 5 mg tablet (Eliquis) 5 mg PO BID #60 tabs 12/20/22 03/26/23 Rx albuterol sulfate 90 mcg/actuation 2 puff inhalation Q4H PRN 01/04/23 03/26/23 Rx aerosol inhaler Shortness Of Breath #1 g metoprolol succinate 100 mg 100 mg PO QAM #30 tabs 01/04/23 03/26/23 Rx tablet,extended release 24 hr (Toprol XL) sacubitril 24 mg-valsartan 26 mg 1 tablet PO Q12HR #30 tabs 01/04/23 03/26/23 Rx tablet (Entresto) furosemide 20 mg tablet 20 mg PO DAILY 03/18/23 03/26/23 History multivitamin with minerals-folic 1 tablet PO DAILY 03/18/23 03/26/23 History acid 0.4 mg tablet oxybutynin chloride 5 mg 5 mg PO QAM 03/18/23 03/26/23 History tablet,extended release 24 hr oxycodone 10 mg tablet 10 mg PO TID PRN Pain 03/18/23 03/26/23 History oxycodone 10 mg tablet,crush 10 mg PO BID 03/18/23 03/26/23 History resistant,extended release 12 hr (OxyContin) umeclidinium 62.5 mcg-vilanterol 1 inh inhalation QAM 03/18/23 03/26/23 History 25 mcg/actuation powdr for inhalation (Anoro Ellipta) oxycodone-acetaminophen 5 mg-325 1 - 2 tablet PO Q6H PRN pain #15 03/28/23 Rx mg tablet (Percocet) tabs Laboratory Tests 03/29/23 03/29/23 03/30/23 20:24 22:57 06:48 WBC 15.8 H K/mm3 10.0 K/mm3 (4.5-10.0) (4.5-10.0) RBC 3.81 L M/mm3 4.03 L M/mm3 (4.2-5.4) (4.2-5.4) Hgb 10.4 L g/dL 10.9 L g/dL (12.0-15.0) (12.0-15.0) Hct 32.2 L % 34.6 L % (37.0-47.0) (37.0-47.0) MCV 84.5 fl 85.9 fl (80-100) (80-100) MCH 27.3 pg 27.0 pg (26-34) (26-34) MCHC 32.3 g/dl 31.5 L g/dl (32-36) (32-36) RDW 16.7 H % 16.8 H % (11.5-14.5) (11.5-14.5) Plt Count 262 k/mm3 245 k/mm3 (150-375) (150-375) MPV 11.9 H fl 12.1 H fl (7.4-10.4) (7.4-10.4) Immature Gran % (Auto) 0.4 % 0.4 % (0-0.5) (0-0.5) Neut % (Auto) 83.7 H % 91.0 H % (45.5-73.1) (45.5-73.1) Lymph % (Auto) 11.5 L % 5.8 L % (18.3-44.2) (18.3-44.2) C[place] % (Auto) 4.0 % 1.6 L % (2.6-8.5) (2.6-8.5) Eos % (Auto) 0.3 % 0.9 % (0-4.4) (0-4.4) Baso % (Auto) 0.1 L % 0.3 % (0.2-1.2) (0.2-1.2) Lymph # (Auto) 1.81 K/mm3 0.58 L K/mm3 (0.9-3.2) (0.9-3.2) C[place] # (Auto) 0.6 K/mm3 0.2 K/mm3 (0.1-0.6) (0.1-0.6) Eos # (Auto) 0.1 K/mm3 0.1 K/mm3 (0-0.3) (0-0.3) Baso # (Auto) 0.0 K/mm3 0.0 K/mm3 (0.0-0.1) (0.0-0.1) Abs Immat Gran (auto) 0.07 H K/mm3 0.04 H K/mm3 (0.00-0.031) (0.00-0.031) Absolute Neuts (auto) 13.2 H K/mm3 9.1 H K/mm3 (1.3-6.7) (1.3-6.7) Absolute Nucleated RBC 0.0 K/mm3 0.0 K/mm3 (0.0-0.012) (0.0-0.012) Nucleated RBC % 0.0 % 0.0 % (0.0-0.2) (0.0-0.2) Sodium 137 mmol/L (137-145) Potassium 3.6 mmol/L (3.4-5.0) Chloride 108 H mmol/L (98-107) Ca
[2023-03-30] MEDS: HYDROmorphone HCL INJ (*CRX) 1 MG/ML SYR 0.5 MG IV PUSH (14:09)
[2023-03-30] MEDS: SODIUM CHLORIDE 0.9% IV 1,000 ML 100 ML IV CONT (14:55)
[2023-03-30] MEDS: POTASSIUM CHLORIDE 20 MEQ PACKET (FOR LIQUID) 40 MEQ PO (17:01)
[2023-03-30] MEDS: PREGABALIN (*CRX) 50 MG CAPSULE 100 MG PO (20:20)
[2023-03-30] MEDS: oxyCODONE HCL (*CRX) 10 MG TAB SR 12HR PO (20:20)
[2023-03-30] MEDS: CENTRAL LINE FLUSH 10 ML IV PUSH (20:20)
[2023-03-31] VITALS (54 sets, daily range): BP systolic 83–125; BP diastolic 51–75; PULSE 53–102; RESP 10–24; TEMP 36.3–36.9; O2SAT 65–98
[2023-03-31] MEDS: PIPERACILLIN/TAZOBACTAM SOD 4.5 GM in SODIUM CHLORIDE 0.9% IV 100 ML 200 ML IVPB ×3 (03:11→15:36)
[2023-03-31] MEDS: oxyCODONE/ACETAMINOPHEN (*CRX) 5-325 MG TABLET 1 TABLET PO ×4 (04:18→23:32)
[2023-03-31] MEDS: CENTRAL LINE FLUSH 10 ML IV PUSH ×3 (04:47→20:31)
[2023-03-31 05:01] LABS: Hemoglobin 9.9 g/dL (12.0-15.0); Mean Corpuscular HGB Conc 31.9 g/dl (32-36); Mean Corpuscular Hemoglobin 27.2 pg (26-34); Mean Corpuscular Volume 85.2 fl (80-100); Mean Platelet Volume 11.3 fl (7.4-10.4); Platelet Count Result 194 k/mm3 (150-375); Red Blood Count 3.64 M/mm3 (4.2-5.4); Red Cell Distribution Width 16.6 % (11.5-14.5); White Blood Count 5.2 K/mm3 (4.5-10.0)
[2023-03-31 05:13] LABS: Alanine Aminotransferase 19 U/L (6-35); Albumin Level 2.7 g/dL (3.5-5.1); Alkaline Phosphatase 111 U/L (38-126); Anion Gap 0 mmol/L (8-16); Aspartate Amino Transferase 25 U/L (14-36); Bilirubin,Total 0.4 mg/dL (0.2-1.3); Blood Urea Nitrogen 13 mg/dL (7-17); Calcium 7.7 mg/dL (8.4-10.2); Carbon Dioxide 25 mmol/L (22-30); Chloride 112 mmol/L (98-107); Estimated CRCL calculation 58 ml/min; Estimated Glomerular Filt Rate > 60; Glucose 144 mg/dL (65-110); Magnesium 1.7 mg/dL (1.6-2.3); Potassium 4.3 mmol/L (3.4-5.0); Sodium 137 mmol/L (137-145)
[2023-03-31 05:19] LABS: Digoxin < 0.5 ng/mL (0.8-2.0)
[2023-03-31] MEDS: UMECLIDINIUM/VILANTEROL 62.5-25 MCG ELLIPTA 1 PUFF INHALATION (08:53)
[2023-03-31] MEDS: PREGABALIN (*CRX) 50 MG CAPSULE 100 MG PO ×2 (09:22→20:30)
[2023-03-31] MEDS: oxyCODONE HCL (*CRX) 10 MG TAB SR 12HR PO ×2 (09:23→20:31)
[2023-03-31] MEDS: ENOXAPARIN 40 MG/0.4 ML SYRINGE SUB-Q (09:24)
[2023-03-31] MEDS: THERAPEUTIC MULTIVITAMINS/MINERALS TAB (*BKC) 1 TABLET PO (09:24)
[2023-03-31] MEDS: SERTRALINE HCL 50 MG TABLET 100 MG PO (09:24)
[2023-03-31] MEDS: oxyBUTYnin CHLORIDE XL 5 MG TAB.ER.24 PO (09:25)
--- NOTE | 2023-03-31 09:26 | WPDINTPN ---
Progress Note: A&P Assessment and Plan (1) Sepsis: Qualifiers: Sepsis acute organ dysfunction status: without acute organ dysfunction Sepsis type: sepsis due to unspecified organism Qualified Code(s): A41.9 - Sepsis, unspecified organism Code(s): A41.9 - Sepsis, unspecified organism Status: Resolved Assessment and Plan: Secondary to infection at the surgical site. Status post incision drainage of the abdominal abscess and wound VAC placement ulcers Blood pressure has been stable now and she has not required any vasopressors Now off of continuous IV fluids Continue empiric daptomycin and Zosyn CT done 03/29 showed Nonorganized appearing small amount of fluid with a few foci of gas within the subcutaneous tissues along the anterior epigastric wall likely related to a reported recent epigastric incisional hernia repair. Will hold further imaging as patient is already going to OR Blood cultures have been done and are pending Stool for C diff was negative UA also suggested UTI and urine cultures pending CT also showed consolidation in the bilateral lower lobe which could be atelectasis but current antibiotic should cover for pneumonia (2) Atrial fibrillation: Code(s): I48.91 - Unspecified atrial fibrillation Status: Chronic Assessment and Plan: Currently in sinus rhythm controlled rate Monitor On digoxin digoxin level low (3) Chronic anticoagulation: Code(s): Z79.01 - [facility] (current) use of anticoagulants Status: Chronic Assessment and Plan: Anticoagulation was on hold as patient went for General surgery Resumption as per General surgery recommendations (4) CHF (congestive heart failure), NYHA class I: Code(s): I50.9 - Heart failure, unspecified Status: Acute Assessment and Plan: Echo 12/23 Summary ? 1. Complete two-dimensional, color flow and Doppler transthoracic echocardiogram is performed. ? 2. The inferoseptal wall, basal inferior wall, mid inferior wall, basal anteroseptal, and mid anteroseptal are hypokinetic. ? 3. Left ventricular systolic function is mildly reduced, estimated at 45-50%. ? 4. There is mildly increased left ventricular wall thickness. ? 5. The left ventricular diastolic function is normal. ? 6. Global longitudinal strain is abnormal at -16 %. ? 7. Right ventricular chamber dimension is mildly enlarged. ? 8. Left atrial chamber dimension is mildly enlarged. ? 9. There is mild aortic valve stenosis with a peak velocity of 166 cm/s, mean gradient of 6 mmHg, and aortic valve area of 1.7 cm2. ? 10. There is severe aortic valve calcification. ? 11. There is mild to moderate mitral valve regurgitation. ? 12. There is mild tricuspid valve regurgitation. ? 13. Strain analysis performed. Patient was given IV fluids yesterday due to sepsis. Hold further IV fluids at this time (5) Incisional hernia: Code(s): K43.2 - Incisional hernia without obstruction or gangrene Status: Acute Assessment and Plan: Status post surgery See above (6) COPD (chronic obstructive pulmonary disease): Qualifiers: COPD type: emphysema Emphysema type: unspecified Qualified Code(s): J43.9 - Emphysema, unspecified Code(s): J44.9 - Chronic obstructive pulmonary disease, unspecified Status: Chronic Assessment and Plan: Stable and not in exacerbation Bronchodilators Plan DVT prophylaxis -SCDs start Lovenox Nutrition -diet ordered Code Status - Full Code Incentive spirometry Transfer out of ICU today Subjective Date/time seen: 03/31/23 Overnight events reviewed. Patient underwent incision and drainage of abdominal abscess with placement of wound VAC yesterday afebrile overnight Acceptable Vitals acceptable on nasal cannula sinus rhythm on the monitor She states she feels much better this morning denies any specific complaint. She states the pain in her abdomen at the site is much better and is only
[2023-03-31] MEDS: MAGNESIUM SULF 1 GM/D5W 100 ML 1 GM/100 ML BAG IVPB (09:30)
[2023-03-31] MEDS: HYDROmorphone HCL INJ (*CRX) 1 MG/ML SYR 0.5 MG IV PUSH ×2 (09:34→15:32)
[2023-03-31] MEDS: DIGOXIN INJ 250 MCG/ML 2 ML AMP (*BKC) 125 MCG IV PUSH (09:37)
[2023-03-31] MEDS: ALBUMIN HUMAN 25% 25 GM/100 ML 100 ML IVPB ×3 (12:12→23:33)
--- NOTE | 2023-03-31 12:33 | PCWOUND ---
WOCN NOTE Will see patient on Friday with Dr Chamberlain, per surgeon request.
--- NOTE | 2023-03-31 16:55 | PM.PNGS ---
Progress Note: A&P Assessment and Plan (1) Infected hematoma: Code(s): T14.8XXA - Other injury of unspecified body region, initial encounter; L08.9 - Local infection of the skin and subcutaneous tissue, unspecified Status: Acute Assessment and Plan: Appreciate Dr. Fierro taking patient to surgery yesterday for incision and drainage of infected hematoma abdominal wound. Cultures were done and wound VAC has been placed. She is hemodynamically stable at this point and plans are to transfer her to [facility] with telemetry. We will review her wound after wound VAC removal tomorrow. Cultures are still pending but would like to see there result before discharge. Continue to hold Eliquis (2) History of incisional hernia repair: Code(s): Z98.890 - Other specified postprocedural states; Z87.19 - Personal history of other diseases of the digestive system Status: Acute Assessment and Plan: Epigastric incisional hernia repair with mesh. Mesh was pretty well covered with fascia at the time of the incision and drainage. Will need careful wound management with wound VAC to avoid mesh infection and promote wound healing. (3) Opioid dependence with current use: Code(s): F11.20 - Opioid dependence, uncomplicated Status: Chronic Assessment and Plan: Patient complaining she is not getting her usual doses of oxycodone. Will adjust the orders. (4) Atrial fibrillation with RVR: Code(s): I48.91 - Unspecified atrial fibrillation Status: Resolved Assessment and Plan: Hemodynamically stable. 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 Subjective Subjective Date/Time Seen: 03/31/23 16:55 Post Op day: 1 Patient reports: still having pain (Pain at wound VAC site), tolerating a regular diet and afebrile Exam Const: General: comfortable, no acute distress, alert and awake Orientation/consciousness: patient oriented x3 GI: Inspection: incision (Wound VAC in place, working well) GI Palp: Yes Soft to palpation, Yes Tenderness to palpation present (GI) (Epigastric area), No Guarding due to palpation present (GI) and No Rebound tenderness present Neuro: General: patient oriented x3 and no focal motor deficits Extrem: General: no calf tenderness and no edema Psych: Affect: normal affect Insight: Good insight present (Psych) Judgement: Good judgement present (Psych) Objective Data Vital Signs Vital Signs: Vital Signs - 24 hr 03/30/23 18:00 03/30/23 18:13 03/30/23 20:00 Temperature 37.3 C 36.8 C Pulse Rate 92 92 87 Respiratory Rate 16 16 Blood Pressure 95/56 L 110/63 Pulse Oximetry 95 Oxygen Delivery Oxygen Flow Rate Fraction of Inspired Oxygen 03/30/23 20:00 03/30/23 20:00 03/30/23 21:59 Temperature Pulse Rate 87 87 58 L Respiratory Rate 16 Blood Pressure Pulse Oximetry 95 Oxygen Delivery Nasal Cannula Oxygen Flow Rate 5 Fraction of Inspired Oxygen 03/30/23 22:00 03/30/23 23:59 03/31/23 00:00 Temperature 36.8 C Pulse Rate 58 L 56 L 56 L Respiratory Rate 16 12 Blood Pressure 98/59 L Pulse Oximetry 96 97 Oxygen Delivery Nasal Cannula Oxygen Flow Rate 5 Fraction of Inspired Oxygen 03/31/23 00:00 03/31/23 02:00 03/31/23 02:00 Temperature 36.6 C 36.6 C Pulse Rate 56 L 61 61 Respiratory Rate 16 14 Blood Pressure 95/55 L 102/51 L Pulse Oximetry 97 96 Oxygen Delivery Oxygen Flow Rate Fraction of Inspired Oxygen 03/31/23 04:00 03/31/23 04:00 03/31/23 04:00 Temperature 36.4 C Pulse Rate 62 62 62 Respiratory Rate 14 12 Blood Pressure 125/73 Pulse Oximetry 94 97 Oxygen Delivery Nasal Cannula Oxygen Flow Rate 5 Fraction of Inspired Oxygen 03/31/23 06:00 03/31/23 06:00 03/31/23 07:59 Temperature 36.5 C 36.3 C L Pulse Rate 54 L 54 L 65 Respiratory Rate 14 16 Blood Pressure 104/59 L 96/58 L Pulse Oximetry 94 95 Oxygen Delivery [facility]
--- NOTE | 2023-03-31 17:55 | PC.NURSE ---
This patient, Chantal Grove, was received from ICU-7on 03/31/23 at 1755. Patient/family oriented to unit policies and routines. Report received from Jeniffer GALLOWAY.
[2023-03-31] MEDS: PIPERACILLN/TAZ 3.375GM/NS50ML 3.375 GM/50 ML BAG IVPB (20:34)
[2023-04-01] VITALS (13 sets, daily range): BP systolic 121–166; BP diastolic 69–82; PULSE 61–127; RESP 18–24; TEMP 36.3–37.6; O2SAT 90–93
[2023-04-01] MEDS: PIPERACILLN/TAZ 3.375GM/NS50ML 3.375 GM/50 ML BAG IVPB ×4 (02:17→20:05)
[2023-04-01 04:50] LABS: Hematocrit 28.2 % (37.0-47.0); Hemoglobin 9.1 g/dL (12.0-15.0); Mean Corpuscular HGB Conc 32.3 g/dl (32-36); Mean Corpuscular Hemoglobin 27.5 pg (26-34); Mean Corpuscular Volume 85.2 fl (80-100); Mean Platelet Volume 11.4 fl (7.4-10.4); Platelet Count Result 207 k/mm3 (150-375); Red Blood Count 3.31 M/mm3 (4.2-5.4); Red Cell Distribution Width 16.7 % (11.5-14.5); White Blood Count 7.1 K/mm3 (4.5-10.0)
[2023-04-01 05:03] LABS: Alanine Aminotransferase 15 U/L (6-35); Alkaline Phosphatase 72 U/L (38-126); Anion Gap 5 mmol/L (8-16); Aspartate Amino Transferase 21 U/L (14-36); Bilirubin,Total 0.4 mg/dL (0.2-1.3); Blood Urea Nitrogen 15 mg/dL (7-17); Calcium 7.9 mg/dL (8.4-10.2); Carbon Dioxide 24 mmol/L (22-30); Chloride 109 mmol/L (98-107); Estimated CRCL calculation 50 ml/min; Estimated Glomerular Filt Rate > 60; Glucose 97 mg/dL (65-110); Magnesium 1.9 mg/dL (1.6-2.3); Potassium 3.5 mmol/L (3.4-5.0); Sodium 138 mmol/L (137-145)
[2023-04-01] MEDS: ALBUMIN HUMAN 25% 25 GM/100 ML 100 ML IVPB (05:07)
[2023-04-01] MEDS: CENTRAL LINE FLUSH 10 ML IV PUSH ×3 (05:07→23:19)
[2023-04-01] MEDS: UMECLIDINIUM/VILANTEROL 62.5-25 MCG ELLIPTA 1 PUFF INHALATION (08:20)
[2023-04-01] MEDS: oxyCODONE HCL (*CRX) 10 MG TAB SR 12HR PO ×2 (08:29→20:04)
--- NOTE | 2023-04-01 08:33 | ECG_ITS ---
Measurements Intervals [place] Rate: 90 P: 83 OK: 152 QRS: 88 QRSD: 89 T: -32 QT: 354 QTc: 435 Interpretive Statements SINUS RHYTHM LOW QRS VOLTAGE IN LIMB LEADS BORDERLINE T WAVE ABNORMALITY- ANTEROLAT/INF LEADS BASELINE ARTIFACT- V1 BORDERLINE ECG COMPARED TO ECG 01/29/2023 16:19:24 T-WAVE ABNORMALITY NOW PRESENT Electronically Signed On 04-01-2023 9:16:41 CDT by Michael Cannon D.O.
[2023-04-01] MEDS: oxyBUTYnin CHLORIDE XL 5 MG TAB.ER.24 PO (08:35)
[2023-04-01] MEDS: DIGOXIN INJ 250 MCG/ML 2 ML AMP (*BKC) 125 MCG IV PUSH (08:36)
[2023-04-01] MEDS: SERTRALINE HCL 50 MG TABLET 100 MG PO (08:37)
[2023-04-01] MEDS: THERAPEUTIC MULTIVITAMINS/MINERALS TAB (*BKC) 1 TABLET PO (08:37)
[2023-04-01] MEDS: ENOXAPARIN 40 MG/0.4 ML SYRINGE SUB-Q (08:37)
[2023-04-01] MEDS: HYDROmorphone HCL INJ (*CRX) 1 MG/ML SYR 0.5 MG IV PUSH (08:40)
[2023-04-01] MEDS: PREGABALIN (*CRX) 50 MG CAPSULE 100 MG PO ×2 (08:48→20:05)
--- NOTE | 2023-04-01 10:23 | PM.PNGS ---
Progress Note: A&P Assessment and Plan (1) Infected hematoma: Code(s): T14.8XXA - Other injury of unspecified body region, initial encounter; L08.9 - Local infection of the skin and subcutaneous tissue, unspecified Status: Acute Assessment and Plan: Patient continues on Zosyn. Wound VAC seems to be working well. I expect the wound to granulate and heal but patient will likely go home with a wound VAC. still having problems with dyspnea as below. (2) Dyspnea: Code(s): R06.00 - Dyspnea, unspecified Status: Acute Assessment and Plan: On 5 L and sats are good. EKG showed only sinus tachycardia. (3) History of incisional hernia repair: Code(s): Z98.890 - Other specified postprocedural states; Z87.19 - Personal history of other diseases of the digestive system Status: Acute Assessment and Plan: Repair intact. Mesh does not seem to be exposed. Hopefully wound will granulate and heal with wound VAC therapy. (4) Opioid dependence with current use: Code(s): F11.20 - Opioid dependence, uncomplicated Status: Chronic Assessment and Plan: Patient receiving her usual home dose of oxycodone which is 5 doses per day. Also receiving a p.r.n. dose of Percocet 04/02/2025. (5) Atrial fibrillation: Code(s): I48.91 - Unspecified atrial fibrillation Status: Chronic Assessment and Plan: Currently in sinus tachycardia (6) Chronic anticoagulation: Code(s): Z79.01 - alf (current) use of anticoagulants Status: Chronic Assessment and Plan: Lili chavez remains on hold following postop hematoma and now infected hematoma. Subjective Subjective Date/Time Seen: 04/01/23 10:23 Post Op day: 2 Patient reports: still having pain, tolerating a regular diet, shortness of breath and afebrile Interval history: Patient having some shortness of breath. She is on 5 L nasal oxygen. Sats by oximeter are over 90%. EKG was done and shows sinus tachycardia rate of 90. Review of Systems Review of Systems: All systems reviewed & are unremarkable except as noted in HPI and below (HPI and those items noted below) Constitutional: Constitutional: Denies chills and Denies fever(s) Cardiovascular: Cardiovascular: Denies chest pain, Denies diaphoresis, Reports rapid heart rate and Reports dyspnea Respiratory: Respiratory: Denies chest congestion, Denies cough, Reports dyspnea, Denies stridor and Denies wheezing Gastrointestinal: Gastrointestinal: Reports abdominal pain (At surgical incision and wound VAC site) Integumentary/Breasts: Skin/Breast: Denies lesions and Denies rash Exam Const: General: no acute distress, alert, awake, tired appearing, uncomfortable and thin Orientation/consciousness: No confusion Resp: Effort & Inspection: abnormal respiratory pattern, labored and pursed lip breathing Cardio: Rate: tachycardic GI: Inspection: incision (Vac removed, wound is healing. No purulence) GI Palp: Yes Firmness to palpation present (GI) and Yes Tenderness to palpation present (GI) (Very tender around wound site.) Objective Data Vital Signs Vital Signs: Vital Signs - 24 hr 03/31/23 11:58 03/31/23 12:00 03/31/23 14:00 Temperature 36.3 C L Pulse Rate 75 74 102 H Respiratory Rate 14 Blood Pressure 95/57 L Pulse Oximetry 94 Oxygen Delivery Oxygen Flow Rate Fraction of Inspired Oxygen 03/31/23 10:33 03/31/23 11:59 03/31/23 12:03 Temperature 36.6 C Pulse Rate 77 75 88 Respiratory Rate 15 14 20 Blood Pressure Pulse Oximetry 89 L 94 90 Oxygen Delivery Oxygen Flow Rate Fraction of Inspired Oxygen 03/31/23 12:11 03/31/23 12:16 03/31/23 12:50 Temperature 36.8 C Pulse Rate 85 86 96 Respiratory Rate 16 18 18 Blood Pressure 116/75 Pulse Oximetry 79 L 89 L 88 L Oxygen Delivery Oxygen Flow Rate Fraction of Inspired Oxygen 03/31/23 13:00 03/31/23 13:01 03/31/23 13:15 Temperatu
--- NOTE | 2023-04-01 10:49 | PM.IMPN ---
Progress Note: A&P Assessment and Plan (1) Sepsis: Qualifiers: Sepsis acute organ dysfunction status: without acute organ dysfunction Sepsis type: sepsis due to unspecified organism Qualified Code(s): A41.9 - Sepsis, unspecified organism Code(s): A41.9 - Sepsis, unspecified organism Status: Resolved Assessment and Plan: Secondary to infection at the surgical site. Status post incision drainage of the abdominal abscess and wound VAC placement ulcers Continue empiric daptomycin and Zosyn (2) Incisional hernia: Code(s): K43.2 - Incisional hernia without obstruction or gangrene Status: Acute Assessment and Plan: Status post surgery Patient on wound VAC per general surgery (3) Dyspnea: Code(s): R06.00 - Dyspnea, unspecified Status: Acute Assessment and Plan: Acute dyspnea. Will get a chest x-ray. She has received IV fluids for sepsis, hypotension. 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 1. Complete two-dimensional, color flow and Doppler transthoracic echocardiogram is performed. ? 2. The inferoseptal wall, basal inferior wall, mid inferior wall, basal anteroseptal, and mid anteroseptal are hypokinetic. ? 3. Left ventricular systolic function is mildly reduced, estimated at 45-50%. ? 4. There is mildly increased left ventricular wall thickness. ? 5. The left ventricular diastolic function is normal. ? 6. Global longitudinal strain is abnormal at -16 %. ? 7. Right ventricular chamber dimension is mildly enlarged. ? 8. Left atrial chamber dimension is mildly enlarged. ? 9. There is mild aortic valve stenosis with a peak velocity of 166 cm/s, mean gradient of 6 mmHg, and aortic valve area of 1.7 cm2. ? 10. There is severe aortic valve calcification. ? 11. There is mild to moderate mitral valve regurgitation. ? 12. There is mild tricuspid valve regurgitation. ? 13. Strain analysis performed. (7) COPD (chronic obstructive pulmonary disease): Qualifiers: COPD type: emphysema Emphysema type: unspecified Qualified Code(s): J43.9 - Emphysema, unspecified Code(s): J44.9 - Chronic obstructive pulmonary disease, unspecified Status: Chronic Assessment and Plan: Stable and not in exacerbation Bronchodilators Subjective Date/time seen: 04/01/23 10:49 Interval history: Patient reports feeling shortness of breath this morning. On 5 L oxygen Review of Systems Review of Systems: All systems reviewed & are unremarkable except as noted in HPI and below Exam Narrative: General: Pt is alert awake and in NAD Lungs/Chest: Trachea central Clear BS B/L, Cardiac: RRR. Normal S1 S2. Systolic murmur 3/6 present Circulation: Pedal pulses are intact and symmetrical. Abdomen: Decreased bowel sounds.. Wound VAC in epigastric area, redness and erhythma of surrounding skin is improved as compared to yesterday. Patient still has some tenderness to palpation around the wound VAC site Extremities: No clubbing, cyanosis or edema. Warm : Hardwick in place Neurologic: Follows commands. Moves all 4 extremities PERRL AO x3 Skin: No Rash Objective Data Vital Signs Vital Signs: Vital Signs - 24 hr 03/31/23 11:58 03/31/23 12:00 03/31/23 14:00 Temperature 97.4 F L Pulse Rate 75 74 102 H Respiratory Rate 14 Blood Pressure 95/57 L Pulse Oximetry 94 Oxygen D
[2023-04-01] MEDS: oxyCODONE HCL (*CRX) 5 MG TAB IR 10 MG PO (12:35)
[2023-04-01] MEDS: ACETAMINOPHEN 500 MG TABLET PO (20:08)
[2023-04-01] MEDS: LORATADINE 10 MG TABLET PO (22:29)
[2023-04-02] VITALS (8 sets, daily range): BP systolic 99–163; BP diastolic 57–75; PULSE 72–118; RESP 18–20; TEMP 36.3–37.1; O2SAT 90–92
[2023-04-02] MEDS: PIPERACILLN/TAZ 3.375GM/NS50ML 3.375 GM/50 ML BAG IVPB ×4 (02:15→21:27)
[2023-04-02 05:01] LABS: Hematocrit 28.3 % (37.0-47.0); Hemoglobin 9.3 g/dL (12.0-15.0); Mean Corpuscular HGB Conc 32.9 g/dl (32-36); Mean Corpuscular Hemoglobin 27.6 pg (26-34); Mean Platelet Volume 11.5 fl (7.4-10.4); Platelet Count Result 265 k/mm3 (150-375); Red Blood Count 3.37 M/mm3 (4.2-5.4); Red Cell Distribution Width 16.5 % (11.5-14.5); White Blood Count 8.5 K/mm3 (4.5-10.0)
[2023-04-02 05:12] LABS: Alanine Aminotransferase 14 U/L (6-35); Albumin Level 2.9 g/dL (3.5-5.1); Alkaline Phosphatase 70 U/L (38-126); Anion Gap 2 mmol/L (8-16); Aspartate Amino Transferase 24 U/L (14-36); Bilirubin,Total 0.6 mg/dL (0.2-1.3); Blood Urea Nitrogen 13 mg/dL (7-17); Calcium 8.3 mg/dL (8.4-10.2); Carbon Dioxide 27 mmol/L (22-30); Chloride 107 mmol/L (98-107); Estimated CRCL calculation 44 ml/min; Estimated Glomerular Filt Rate > 60; Glucose 87 mg/dL (65-110); Magnesium 1.8 mg/dL (1.6-2.3); Potassium 3.5 mmol/L (3.4-5.0); Sodium 136 mmol/L (137-145)
[2023-04-02] MEDS: CENTRAL LINE FLUSH 10 ML IV PUSH ×3 (05:48→21:28)
[2023-04-02] MEDS: UMECLIDINIUM/VILANTEROL 62.5-25 MCG ELLIPTA 1 PUFF INHALATION (08:37)
[2023-04-02] MEDS: ENOXAPARIN 40 MG/0.4 ML SYRINGE SUB-Q (08:44)
[2023-04-02] MEDS: oxyCODONE HCL (*CRX) 10 MG TAB SR 12HR PO ×2 (08:45→21:27)
[2023-04-02] MEDS: SERTRALINE HCL 50 MG TABLET 100 MG PO (08:45)
[2023-04-02] MEDS: DIGOXIN INJ 250 MCG/ML 2 ML AMP (*BKC) 125 MCG IV PUSH (08:45)
[2023-04-02] MEDS: PREGABALIN (*CRX) 50 MG CAPSULE 100 MG PO ×2 (08:46→21:27)
[2023-04-02] MEDS: oxyBUTYnin CHLORIDE XL 5 MG TAB.ER.24 PO (08:46)
[2023-04-02] MEDS: oxyCODONE/ACETAMINOPHEN (*CRX) 5-325 MG TABLET 1 TABLET PO ×2 (11:27→17:01)
--- NOTE | 2023-04-02 13:32 | PM.IMPN ---
Progress Note: A&P Assessment and Plan (1) Sepsis: Qualifiers: Sepsis acute organ dysfunction status: without acute organ dysfunction Sepsis type: sepsis due to unspecified organism Qualified Code(s): A41.9 - Sepsis, unspecified organism Code(s): A41.9 - Sepsis, unspecified organism Status: Resolved Assessment and Plan: Secondary to infection at the surgical site. Status post incision drainage of the abdominal abscess and wound VAC placement ulcers Continue empiric daptomycin and Zosyn Surgery rounding (2) Incisional hernia: Code(s): K43.2 - Incisional hernia without obstruction or gangrene Status: Acute Assessment and Plan: Status post surgery Patient on wound VAC per general surgery (3) Dyspnea: Code(s): R06.00 - Dyspnea, unspecified Status: Acute Assessment and Plan: Cxr shows - 1. Small bilateral pleural effusions. 2. 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 1. Complete two-dimensional, color flow and Doppler transthoracic echocardiogram is performed. ? 2. The inferoseptal wall, basal inferior wall, mid inferior wall, basal anteroseptal, and mid anteroseptal are hypokinetic. ? 3. Left ventricular systolic function is mildly reduced, estimated at 45-50%. ? 4. There is mildly increased left ventricular wall thickness. ? 5. The left ventricular diastolic function is normal. ? 6. Global longitudinal strain is abnormal at -16 %. ? 7. Right ventricular chamber dimension is mildly enlarged. ? 8. Left atrial chamber dimension is mildly enlarged. ? 9. There is mild aortic valve stenosis with a peak velocity of 166 cm/s, mean gradient of 6 mmHg, and aortic valve area of 1.7 cm2. ? 10. There is severe aortic valve calcification. ? 11. There is mild to moderate mitral valve regurgitation. ? 12. There is mild tricuspid valve regurgitation. ? 13. Strain analysis performed. (7) COPD (chronic obstructive pulmonary disease): Qualifiers: COPD type: emphysema Emphysema type: unspecified Qualified Code(s): J43.9 - Emphysema, unspecified Code(s): J44.9 - Chronic obstructive pulmonary disease, unspecified Status: Chronic Assessment and Plan: Stable and not in exacerbation Bronchodilators Subjective Date/time seen: 04/02/23 13:32 Interval history: 67 year old female who had it complaining of swelling in her epigastric incision of her laparoscopic cholecystectomy, repair bile duct injury on 12/04/2022 and repair bile duct with T-tube placement.? The patient was complaining of having some swelling to that area and some discomfort.? The patient had incisional hernia.? Today she had a open repair 2 cm epigastric incisional hernia with Ventralex underlay mesh per Dr. Chamberlain.? It was noted that she had no complications.? The patient has a small 2 in incision that is well approximated with surgical glue.? The patient has no complaints.? She has a history of COPD and does not chronically wear oxygen. Patient reports feeling shortness of breath this morning. On 4 L oxygen Review of Systems Review of Systems: SOB Exam Narrative: General: Pt looks tired and weak Lungs/Chest: Trachea central Clear BS B/L, Cardiac: RRR. Normal
--- NOTE | 2023-04-02 13:50 | PM.PNGS ---
Progress Note: A&P Assessment and Plan (1) Infected hematoma: Code(s): T14.8XXA - Other injury of unspecified body region, initial encounter; L08.9 - Local infection of the skin and subcutaneous tissue, unspecified Status: Acute Assessment and Plan: S/p I&D with wound vac placement. Wound vac was changed yesterday and appeared to be healing well. Continue wound vac therapy. CC working on insurance approval. Continue IV Zosyn for now. (2) Dyspnea: Code(s): R06.00 - Dyspnea, unspecified Status: Acute Assessment and Plan: Dyspnea improved, down to 4 liters O2. Chest x-ray yesterday showed small bilateral pleural effusions with bilateral mid and lower lung zone opacities c/w mild pulmonary edema/pneumonia/atelectasis/combination. Currently on IV Zosyn. Will give a dose of IV Bumex once now and restart her home dose of furosemide. (3) History of incisional hernia repair: Code(s): Z98.890 - Other specified postprocedural states; Z87.19 - Personal history of other diseases of the digestive system Status: Acute Assessment and Plan: Repair intact. (4) Opioid dependence with current use: Code(s): F11.20 - Opioid dependence, uncomplicated Status: Chronic Assessment and Plan: Patient receiving her usual home dose of oxycodone which is 5 doses per day. Also receiving a p.r.n. dose of Percocet 04/02/2025. (5) Atrial fibrillation: Code(s): I48.91 - Unspecified atrial fibrillation Status: Chronic Assessment and Plan: Regular rate and rhythm on exam today. 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 Plan I have discussed the patient's case and plan of care with Dr. Chamberlain. Subjective Subjective Date/Time Seen: 04/02/23 10:50 Post Op day: 7 (Open repair epigastric incisional hernia, 03/30/23 incision and drainage of abdominal abscess with placement of wound VAC) Patient reports: no new complaints, tolerating a regular diet, flatus, bowel movement (this morning) and afebrile Interval history: Patient reports feeling better today. Her shortness of breath has improved since yesterday. She is now on 4 liters nasal cannula. She reports abdominal pain at the upper mid abdominal wound that is currently being controlled with the additional Percocet to her typical oxycodone. She is eating well. Review of Systems Review of Systems: All systems reviewed & are unremarkable except as noted in HPI and below Exam Const: General: comfortable, no acute distress and awake Orientation/consciousness: patient oriented x3 Resp: Effort & Inspection: normal respiratory effort and not labored Cardio: Rate: regular rate Rhythm: regular rhythm GI: Inspection: non-distended and other (wound vac dressing dry and intact, functioning well) GI Palp: Yes Tenderness to palpation present (GI) (tenderness at and around her mid upper abdominal wound) Auscultation: normal bowel sounds Extrem: General: no calf tenderness and no edema Psych: Mental Status: mental status grossly normal Insight: Good insight present (Psych) Judgement: Good judgement present (Psych) Objective Data Vital Signs Vital Signs: Vital Signs - 24 hr 04/01/23 15:25 04/01/23 16:00 04/01/23 16:00 Temperature 98.5 F Pulse Rate 104 H 110 H Respiratory Rate 20 Blood Pressure 121/69 Pulse Oximetry 91 92 Oxygen Delivery Nasal Cannula Oxygen Flow Rate 4 04/01/23 20:08 04/01/23 20:00 04/01/23 22:30 Temperature 99.7 F H 99.7 F H 98.0 F Pulse Rate 108 H Respiratory Rate 22 H Blood Pressure 134/82 Pulse Oximetry 90 Oxygen Delivery Oxygen Flow Rate 04/01/23 21:08 04/01/23 20:00 04/02/23 00:00 Temperature 98.0 F 98.0 F Pulse Rate 89 Respiratory Rate 20 Blood Pressure 129/64 Pulse
[2023-04-02] MEDS: BUMETANIDE INJ 1 MG/4 ML VIAL IV PUSH (17:01)
[2023-04-03] VITALS (10 sets, daily range): BP systolic 123–167; BP diastolic 63–80; PULSE 70–107; RESP 18–20; TEMP 36.5–37.1; O2SAT 87–94
[2023-04-03] MEDS: PIPERACILLN/TAZ 3.375GM/NS50ML 3.375 GM/50 ML BAG IVPB ×4 (02:56→20:31)
[2023-04-03] MEDS: CENTRAL LINE FLUSH 10 ML IV PUSH ×2 (04:17→13:02)
[2023-04-03 05:29] LABS: Hematocrit 28.2 % (37.0-47.0); Hemoglobin 9.3 g/dL (12.0-15.0); Mean Corpuscular Hemoglobin 27.7 pg (26-34); Mean Corpuscular Volume 83.9 fl (80-100); Mean Platelet Volume 10.5 fl (7.4-10.4); Platelet Count Result 288 k/mm3 (150-375); Red Blood Count 3.36 M/mm3 (4.2-5.4); Red Cell Distribution Width 16.3 % (11.5-14.5); White Blood Count 9.2 K/mm3 (4.5-10.0)
[2023-04-03 05:59] LABS: Anion Gap 3 mmol/L (8-16); Blood Urea Nitrogen 15 mg/dL (7-17); Calcium 8.2 mg/dL (8.4-10.2); Carbon Dioxide 29 mmol/L (22-30); Chloride 105 mmol/L (98-107); Estimated CRCL calculation 44 ml/min; Estimated Glomerular Filt Rate > 60; Glucose 91 mg/dL (65-110); Potassium 3.2 mmol/L (3.4-5.0); Sodium 137 mmol/L (137-145)
[2023-04-03] MEDS: DIGOXIN INJ 250 MCG/ML 2 ML AMP (*BKC) 125 MCG IV PUSH (08:43)
[2023-04-03] MEDS: POTASSIUM CHLORIDE 20 MEQ TABLET.ER PO ×2 (08:43→16:45)
[2023-04-03] MEDS: FUROSEMIDE 20 MG TABLET PO (08:47)
[2023-04-03] MEDS: oxyBUTYnin CHLORIDE XL 5 MG TAB.ER.24 PO (08:47)
[2023-04-03] MEDS: ENOXAPARIN 40 MG/0.4 ML SYRINGE SUB-Q (08:47)
[2023-04-03] MEDS: UMECLIDINIUM/VILANTEROL 62.5-25 MCG ELLIPTA 1 PUFF INHALATION (08:48)
[2023-04-03] MEDS: PREGABALIN (*CRX) 50 MG CAPSULE 100 MG PO ×2 (08:48→20:32)
[2023-04-03] MEDS: SERTRALINE HCL 50 MG TABLET 100 MG PO (08:49)
[2023-04-03] MEDS: oxyCODONE HCL (*CRX) 10 MG TAB SR 12HR PO ×2 (08:55→20:32)
--- NOTE | 2023-04-03 11:28 | PM.PNGS ---
Progress Note: A&P Assessment and Plan (1) Infected hematoma: Code(s): T14.8XXA - Other injury of unspecified body region, initial encounter; L08.9 - Local infection of the skin and subcutaneous tissue, unspecified Status: Acute Assessment and Plan: Open wound healing with wound VAC care. Granulating and overall dimensions are smaller. Plan to go home with wound VAC and physical therapy either tomorrow or Friday. Discussed with patient. (2) Hypokalemia: Code(s): E87.6 - Hypokalemia Status: Acute Assessment and Plan: Potassium 3.2 today. Started potassium supplementation. (3) History of incisional hernia repair: Code(s): Z98.890 - Other specified postprocedural states; Z87.19 - Personal history of other diseases of the digestive system Status: Acute Assessment and Plan: Repair done with mesh 8 days ago. Repair intact. (4) Chronic, continuous use of opioids: Code(s): F11.90 - Opioid use, unspecified, uncomplicated Status: Chronic Assessment and Plan: Continue to receive significant doses of oxycodone (5) Atrial fibrillation: Code(s): I48.91 - Unspecified atrial fibrillation Status: Chronic Assessment and Plan: Currently in sinus rhythm. 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 Doubt will resume until wound VAC is discontinued. Subjective Subjective Date/Time Seen: 04/03/23 11:28 Post Op day: 4 (Abscess drainage, #8 hernia repair) Patient reports: feels better, tolerating a regular diet, bowel movement, shortness of breath (Still on 3 L nasal cannula oxygen but not short of breath) and afebrile Review of Systems Review of Systems: All systems reviewed & are unremarkable except as noted in HPI and below (HPI) Exam Const: General: comfortable and no acute distress Orientation/consciousness: patient oriented x3 GI: Inspection: non-distended, incision (Wound VAC removed, wound granulating and healing) and other (Wound is smaller, couple of sutures removed) GI Palp: Yes Soft to palpation, Yes Tenderness to palpation present (GI), No Guarding due to palpation present (GI) and No Rebound tenderness present Neuro: General: patient oriented x3 and no focal motor deficits Extrem: General: no calf tenderness and no edema Psych: Affect: normal affect Insight: Good insight present (Psych) Judgement: Good judgement present (Psych) Objective Data Vital Signs Vital Signs: Vital Signs - 24 hr 04/02/23 12:00 04/02/23 16:00 04/02/23 12:00 Temperature 37.1 C 36.8 C Pulse Rate 80 76 118 H Respiratory Rate 19 20 Blood Pressure 99/57 L 110/62 Pulse Oximetry 90 91 Oxygen Delivery Oxygen Flow Rate Fraction of Inspired Oxygen 04/02/23 20:00 04/02/23 20:00 04/03/23 00:00 Temperature 36.3 C L 36.7 C Pulse Rate 84 84 87 Respiratory Rate 20 20 20 Blood Pressure 132/67 142/71 H Pulse Oximetry 91 91 92 Oxygen Delivery Nasal Cannula Oxygen Flow Rate 4 Fraction of Inspired Oxygen 40 04/02/23 20:00 04/03/23 00:00 04/03/23 04:00 Temperature Pulse Rate 78 93 78 Respiratory Rate Blood Pressure Pulse Oximetry Oxygen Delivery Oxygen Flow Rate Fraction of Inspired Oxygen 04/03/23 04:00 04/02/23 16:00 04/03/23 08:43 Temperature 36.5 C Pulse Rate 88 84 107 H Respiratory Rate 20 Blood Pressure 167/78 H Pulse Oximetry 91 Oxygen Delivery Oxygen Flow Rate Fraction of Inspired Oxygen 04/03/23 08:46 04/03/23 08:00 04/03/23 09:39 Temperature 37.1 C Pulse Rate 96 Respiratory Rate 20 Blood Pressure 158/80 H Pulse Oximetry 91 87 L Oxygen Delivery Nasal Cannula Nasal Cannula Oxygen Flow Rate 3 3 Fraction of Inspired Oxygen 04/03/23 08:55 Temperature Pulse Rate Respiratory Rate Blood Pressure Pulse Oximetr
[2023-04-03] MEDS: oxyCODONE/ACETAMINOPHEN (*CRX) 5-325 MG TABLET 1 TABLET PO ×2 (13:01→16:48)
--- NOTE | 2023-04-03 13:05 | PCNFU ---
Nutrition Follow-Up Complete: Suboptimal po intake related to appetite as evidenced by low BMI Goal: PO intake greater than 50% of meals and supplements Pt current nutrition is a regular diet. Patient states she is receiving Ensure daily and likes it. Nutrition recommendation: General diet, Ensure BID. Replace K+. Last recorded weight is 46.5 kg. Bowel Motility: BM: 1 - 04/03/23. Labs Reviewed: K+: 3.2, Hgb: 9.3, Hct: 28.2 Meds Noted: Lasix, MVI, KCl Skin: Bilateral groin maceration, abdominal surgical wound with wound vac Edema: non pitting bilateral lower leg edema Additional Notes: Patient reports not much of appetite. She reports no weight changes. Denies nausea, vomiting, diarrhea, constipation. She reports meals are good. Intake of 25-100% x 1 meal/day x 3 days. Reviewed weight history in the EHR and weight is up 3 lbs (3%) x 8 days. Monitor intake, wt, labs. Follow up in 7 days.
--- NOTE | 2023-04-03 13:17 | PM.IMPN ---
Progress Note: A&P Assessment and Plan (1) Sepsis: Qualifiers: Sepsis acute organ dysfunction status: without acute organ dysfunction Sepsis type: sepsis due to unspecified organism Qualified Code(s): A41.9 - Sepsis, unspecified organism Code(s): A41.9 - Sepsis, unspecified organism Status: Resolved Assessment and Plan: Secondary to infection at the surgical site. Status post incision drainage of the abdominal abscess and wound VAC placement ulcers Continue empiric Zosyn Surgery on board (2) Incisional hernia: Code(s): K43.2 - Incisional hernia without obstruction or gangrene Status: Acute Assessment and Plan: Status post surgery Patient on wound VAC per general surgery (3) Dyspnea: Code(s): R06.00 - Dyspnea, unspecified Status: Acute Assessment and Plan: Cxr shows - 1. Small bilateral pleural effusions. 2. 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 1. Complete two-dimensional, color flow and Doppler transthoracic echocardiogram is performed. ? 2. The inferoseptal wall, basal inferior wall, mid inferior wall, basal anteroseptal, and mid anteroseptal are hypokinetic. ? 3. Left ventricular systolic function is mildly reduced, estimated at 45-50%. ? 4. There is mildly increased left ventricular wall thickness. ? 5. The left ventricular diastolic function is normal. ? 6. Global longitudinal strain is abnormal at -16 %. ? 7. Right ventricular chamber dimension is mildly enlarged. ? 8. Left atrial chamber dimension is mildly enlarged. ? 9. There is mild aortic valve stenosis with a peak velocity of 166 cm/s, mean gradient of 6 mmHg, and aortic valve area of 1.7 cm2. ? 10. There is severe aortic valve calcification. ? 11. There is mild to moderate mitral valve regurgitation. ? 12. There is mild tricuspid valve regurgitation. ? 13. Strain analysis performed. On Entresto at home which has been on hold will resume that (7) COPD (chronic obstructive pulmonary disease): Qualifiers: COPD type: emphysema Emphysema type: unspecified Qualified Code(s): J43.9 - Emphysema, unspecified Code(s): J44.9 - Chronic obstructive pulmonary disease, unspecified Status: Chronic Assessment and Plan: Stable and not in exacerbation Bronchodilators Plan Anemia acute postoperative anemia stable count continue to monitor Subjective Date/time seen: 04/03/23 13:17 Interval history: 67 year old female who had it complaining of swelling in her epigastric incision of her laparoscopic cholecystectomy, repair bile duct injury on 12/04/2022 and repair bile duct with T-tube placement.? The patient was complaining of having some swelling to that area and some discomfort.? The patient had incisional hernia.? Today she had a open repair 2 cm epigastric incisional hernia with Ventralex underlay mesh per Dr. Chamberlain.? It was noted that she had no complications.? The patient has a small 2 in incision that is well approximated with surgical glue.? The patient has no complaints.? She has a history of COPD and does not chronically wear oxygen. Patient reports
[2023-04-03] MEDS: SACUBITRIL/VALSARTAN 24-26 MG TABLET 1 TAB PO (20:32)
[2023-04-04] VITALS (9 sets, daily range): BP systolic 101–169; BP diastolic 57–73; PULSE 70–99; RESP 16–20; TEMP 36.3–36.8; O2SAT 87–95
[2023-04-04] MEDS: oxyCODONE/ACETAMINOPHEN (*CRX) 5-325 MG TABLET 1 TABLET PO (00:24)
[2023-04-04] MEDS: PIPERACILLN/TAZ 3.375GM/NS50ML 3.375 GM/50 ML BAG IVPB ×2 (02:06→08:16)
[2023-04-04 06:22] LABS: Hematocrit 28.3 % (37.0-47.0); Mean Corpuscular HGB Conc 31.8 g/dl (32-36); Mean Corpuscular Hemoglobin 26.6 pg (26-34); Mean Corpuscular Volume 83.7 fl (80-100); Mean Platelet Volume 11.2 fl (7.4-10.4); Platelet Count Result 308 k/mm3 (150-375); Red Blood Count 3.38 M/mm3 (4.2-5.4); Red Cell Distribution Width 16.5 % (11.5-14.5)
[2023-04-04 06:36] LABS: Alanine Aminotransferase 16 U/L (6-35); Alkaline Phosphatase 67 U/L (38-126); Anion Gap 3 mmol/L (8-16); Aspartate Amino Transferase 36 U/L (14-36); Bilirubin,Total 1.1 mg/dL (0.2-1.3); Blood Urea Nitrogen 16 mg/dL (7-17); Calcium 8.1 mg/dL (8.4-10.2); Carbon Dioxide 31 mmol/L (22-30); Chloride 104 mmol/L (98-107); Estimated CRCL calculation 50 ml/min; Estimated Glomerular Filt Rate > 60; Glucose 83 mg/dL (65-110); Magnesium 1.6 mg/dL (1.6-2.3); Potassium 3.8 mmol/L (3.4-5.0); Sodium 138 mmol/L (137-145)
[2023-04-04] MEDS: SACUBITRIL/VALSARTAN 24-26 MG TABLET 1 TAB PO (08:11)
[2023-04-04] MEDS: SERTRALINE HCL 50 MG TABLET 100 MG PO (08:11)
[2023-04-04] MEDS: FUROSEMIDE 20 MG TABLET PO (08:11)
[2023-04-04] MEDS: POTASSIUM CHLORIDE 20 MEQ TABLET.ER PO (08:12)
[2023-04-04] MEDS: oxyBUTYnin CHLORIDE XL 5 MG TAB.ER.24 PO (08:12)
[2023-04-04] MEDS: METOPROLOL SUCCINATE EXT REL 100 MG TABCR PO (08:12)
[2023-04-04] MEDS: ENOXAPARIN 40 MG/0.4 ML SYRINGE SUB-Q (08:13)
[2023-04-04] MEDS: oxyCODONE HCL (*CRX) 10 MG TAB SR 12HR PO (08:15)
[2023-04-04] MEDS: PREGABALIN (*CRX) 50 MG CAPSULE 100 MG PO (08:15)
[2023-04-04] MEDS: oxyCODONE HCL (*CRX) 5 MG TAB IR 10 MG PO ×2 (08:27→13:10)
[2023-04-04] MEDS: UMECLIDINIUM/VILANTEROL 62.5-25 MCG ELLIPTA 1 PUFF INHALATION (11:09)
--- NOTE | 2023-04-04 11:32 | PM.DS ---
DS: Admitting Diagnosis Discharge Date 04/04/2023 Admitting Diagnosis Epigastric incisional hernia CHF COPD Smoker History of atrial fibrillation Chronic anticoagulation Smoker Chronic continuous opioid use DS: Discharge Diagnosis Discharge Diagnosis (1) History of incisional hernia repair: Code(s): Z98.890 - Other specified postprocedural states; Z87.19 - Personal history of other diseases of the digestive system Status: Chronic Assessment and Plan: Repaired open with underlay mesh 03/26/2023. (2) Infected hematoma: Code(s): T14.8XXA - Other injury of unspecified body region, initial encounter; L08.9 - Local infection of the skin and subcutaneous tissue, unspecified Status: Acute Assessment and Plan: Patient returned to surgery 03/30/[address] Fierro after evidence of infected hematoma and wound abscess associated with leukocytosis and fever with increased pain were noted. Patient had wound VAC placed and is continued to have wound VAC therapy since the procedure. She will go home with wound VAC therapy. Cultures from the operating room grew E coli sensitive to most antibiotics. A wound swab done following the surgery grew Enterococcus sensitive to ampicillin. Patient was treated with IV Zosyn while an inpatient and will go home on Augmentin. (3) Chronic, continuous use of opioids: Code(s): F11.90 - Opioid use, unspecified, uncomplicated Status: Chronic Assessment and Plan: Difficult pain management as patient uses OxyContin twice a day and oxycodone p.r.n. 3 times a day. (4) Congestive heart failure: Code(s): I50.9 - Heart failure, unspecified Status: Acute Assessment and Plan: Patient had shortness of breath and dyspnea following the 2 procedures and the infection. She was diuresed and was comfortable but requiring oxygen which she has at home. (5) Atrial fibrillation: Code(s): I48.91 - Unspecified atrial fibrillation Status: Chronic Assessment and Plan: Brief episode of atrial fibrillation following incision and drainage of infected hematoma. Resolved thereafter. (6) Chronic anticoagulation: Code(s): Z79.01 - [facility] (current) use of anticoagulants Status: Chronic Assessment and Plan: Lili remains on hold following discharge. (7) COPD (chronic obstructive pulmonary disease): Qualifiers: COPD type: emphysema Emphysema type: unspecified Qualified Code(s): J43.9 - Emphysema, unspecified Code(s): J44.9 - Chronic obstructive pulmonary disease, unspecified Status: Chronic Assessment and Plan: Patient takes 1 L of oxygen p.r.n. at home chronically. Still smokes. DS: Summary Hospital Course Hospital Course: Patient underwent open repair of epigastric incisional hernia on 03/26/2023. This would done under IV sedation and local anesthesia. Underlay mesh was placed as well. She was observed overnight mostly be because of the significant chronic illnesses or corps morbid conditions she carries. She was having quite a bit of pain and swelling at the surgical site the morning after surgery. There was some bruising and ultrasound suggested a hematoma. There was no evidence of skin breakdown and it was hoped that this would resolve. She was observed but then began running fever and her white blood cell count was elevated. The pain was worsening. 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 Incision and drainage of the wound was performed. A wound VAC was placed. Cultures from the wound showed E coli sensitive to multiple antibiotics. A bedside culture done either prior to surgery or following surgery ended up growing Enterococcus sensitive to ampicillin and vancomycin. The patient had to be in the ICU with some signs of sepsis and rapid atrial fibrillation after her incision and drainage procedure. She had rapid atrial fibrillation and
--- NOTE | 2023-04-04 11:52 | PCOTNOTE ---
Attempted to see patient, patient with MD and [employer]. Will try later to see for OT.
--- NOTE | 2023-04-04 13:16 | PM.IMPN ---
Progress Note: A&P Assessment and Plan (1) Sepsis: Qualifiers: Sepsis acute organ dysfunction status: without acute organ dysfunction Sepsis type: sepsis due to unspecified organism Qualified Code(s): A41.9 - Sepsis, unspecified organism Code(s): A41.9 - Sepsis, unspecified organism Status: Resolved Assessment and Plan: Secondary to infection at the surgical site. Status post incision drainage of the abdominal abscess and wound VAC placement ulcers Continue empiric Zosyn Surgery on board Switched to Augmentin Wound culture with Enterococcus and E coli (2) Incisional hernia: Code(s): K43.2 - Incisional hernia without obstruction or gangrene Status: Acute Assessment and Plan: Status post surgery Patient on wound VAC per general surgery (3) Dyspnea: Code(s): R06.00 - Dyspnea, unspecified Status: Acute Assessment and Plan: Cxr shows - 1. Small bilateral pleural effusions. 2. Persistent opacities in the bilateral mid and lower lung zones consistent with mild pulmonary edema, pneumonia, atelectasis or some combination Pt on Lasix Still requiring some oxygenation. Home oxygen evaluation at discharge. 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 1. Complete two-dimensional, color flow and Doppler transthoracic echocardiogram is performed. ? 2. The inferoseptal wall, basal inferior wall, mid inferior wall, basal anteroseptal, and mid anteroseptal are hypokinetic. ? 3. Left ventricular systolic function is mildly reduced, estimated at 45-50%. ? 4. There is mildly increased left ventricular wall thickness. ? 5. The left ventricular diastolic function is normal. ? 6. Global longitudinal strain is abnormal at -16 %. ? 7. Right ventricular chamber dimension is mildly enlarged. ? 8. Left atrial chamber dimension is mildly enlarged. ? 9. There is mild aortic valve stenosis with a peak velocity of 166 cm/s, mean gradient of 6 mmHg, and aortic valve area of 1.7 cm2. ? 10. There is severe aortic valve calcification. ? 11. There is mild to moderate mitral valve regurgitation. ? 12. There is mild tricuspid valve regurgitation. ? 13. Strain analysis performed. On Entresto at home which has been on hold will resume that (7) COPD (chronic obstructive pulmonary disease): Qualifiers: COPD type: emphysema Emphysema type: unspecified Qualified Code(s): J43.9 - Emphysema, unspecified Code(s): J44.9 - Chronic obstructive pulmonary disease, unspecified Status: Chronic Assessment and Plan: Stable and not in exacerbation Bronchodilators Plan Anemia acute postoperative anemia stable count continue to monitor Subjective Date/time seen: 04/04/23 13:16 Interval history: 67 year old female who had it complaining of swelling in her epigastric incision of her laparoscopic cholecystectomy, repair bile duct injury on 12/04/2022 and repair bile duct with T-tube placement.? The patient was complaining of having some swelling to that area and some discomfort.? The patient had incisional hernia.? Today she had a open repair 2 cm epigastric incisional hernia with Ventralex underlay mesh per Dr. Chamberlain.? It was noted that she had no complications.? The
[2023-04-04] MEDS: NEOMYCIN/POLYMYXIN/BACITRACIN OINTMENT PACKET 1 PACKET (13:50)
--- NOTE | 2023-04-04 15:11 | HOMEO2EVAL ---
Evaluation was performed at [facility] Home Oxygen Evaluation RC: Home Oxygen (O2) Evaluation Start: 04/04/23 12:29 Freq: ONCE Status: Active Protocol: RPE Activity Type Activity Date Activity User E-sign Co-sign Detail Recorded Client Recorded Date Recorded By Document 04/04/23 14:45 MICHELE [email or web address] 04/04/23 15:11 MICHELE Document 04/04/23 14:45 MICHELE [email or web address] 04/04/23 15:11 MICHELE Document 04/04/23 14:50 MICHELE [email or web address] 04/04/23 15:11 [facility] Document 04/04/23 15:00 MICHELE [email or web address] 04/04/23 15:11 MICHELE 04/04/23 04/04/23 04/04/23 14:45 14:45 14:50 Home O2 Evaluation [Oxygen] -Test Phase Resting Resting Exercise -Oxygen Delivery Room Air Nasal Cannula Nasal Cannula -Oxygen Flow Rate (L/min) 2 2 [Pulse Oximetry] -Pulse Oximetry (90-100 %) 87 L 92 90 [Pulse Rate] -Pulse Rate (60-100 beats/min) 88 99 [Comments] -Home Oxygen Evaluation Comments Pt requires 2 liters at rest and with activity [Charges] -Treatment Charges O2 Evaluation - Inpatient 04/04/23 15:00 Home O2 Evaluation [Oxygen] -Test Phase Resting -Oxygen Delivery Nasal Cannula -Oxygen Flow Rate (L/min) 2 [Pulse Oximetry] -Pulse Oximetry (90-100 %) 93 [Pulse Rate] -Pulse Rate (60-100 beats/min) 93 [Comments] -Home Oxygen Evaluation Comments [Charges] -Treatment Charges
--- NOTE | 2023-04-04 15:12 | PCRCNOTE ---
Home O2 eval done, home O2 at 2 L with rest and activity. Pt has [facility] for nocturnal O2. Marco Antonio is contact at . Pt has portable O2 unit as well as a stationary unit. Asked pt to have her bring in her portable O2 for her transport home. Faxed new home O2 eval, order and chart notes to [facility]. RN notified.
== END 2023-04-04 15:45 | disposition home health service (06) | DRG 857 ==
LOC: ANHSURGERY 12:09 → ANH3MEDSUR 12:09 → ANHIMU 03-30 00:35 → ANHICU 03-30 04:09 → ANH3MEDSUR 03-31 17:31
PROVIDERS: Family Medicine; Internal Medicine; Nurse Practitioner; Surgery; Admitting Provider Surgery; PCP Registered Nurse; Visit Provider Hospitalist
PROC: 0WQF0ZZ Repair Abdominal Wall, Open Approach (ICD-10-PCS; principal; 2023-03-26 08:30)
PROC: 0J980ZZ Drainage of Abdomen Subcutaneous Tissue and Fascia, Open Approach (ICD-10-PCS; principal; 2023-03-30 10:45)
DX: T81.41XA Infection following a procedure, superficial incisional surgical site, initial encounter (principal); F11.20 Opioid dependence, uncomplicated; L02.211 Cutaneous abscess of abdominal wall; I50.22 Chronic systolic (congestive) heart failure; I48.20 Chronic atrial fibrillation, unspecified; T81.44XA Sepsis following a procedure, initial encounter; K43.2 Incisional hernia without obstruction or gangrene; I11.0 Hypertensive heart disease with heart failure; B95.2 Enterococcus as the cause of diseases classified elsewhere; B96.20 Unspecified Escherichia coli [E. coli] as the cause of diseases classified elsewhere; Z20.822 Contact with and (suspected) exposure to COVID-19; J44.9 Chronic obstructive pulmonary disease, unspecified; M21.379 Foot drop, unspecified foot; D50.9 Iron deficiency anemia, unspecified; G62.9 Polyneuropathy, unspecified; F32.A Depression, unspecified; E87.6 Hypokalemia; N32.81 Overactive bladder; Z87.891 Personal history of nicotine dependence; Z90.49 Acquired absence of other specified parts of digestive tract; Z98.1 Arthrodesis status; Z79.01 Long term (current) use of anticoagulants; Z99.81 Dependence on supplemental oxygen
CPT/HCPCS: 36415; 36569; 71046; 74177; 76705; 80048; 80053; 80162; 81001; 83605; 83735; 84145; 85025; 85027; 87040; 87070; 87075; 87077; 87086; 87147; 87181; 87186; 87205; 87493; 89055; 93005; 94618; 94640; 97161; 97165; 97530; 97535; A9270; C1751; C1781; G0378; J0131; J0878; J1160; J1170; J1650; J1885; J2250; J2370; J2543; J2704; J3010; J3475; J7030; J7040; J7120; P9047; Q9967

== ENCOUNTER 2023-04-09 10:01 | Observation (INO) | payer MEDICARE, SELFPAY ==
[2023-04-09] VITALS (42 sets, daily range): BP systolic 146–191; BP diastolic 63–90; PULSE 68–97; RESP 14–24; TEMP 36.6–37.5; O2SAT 91–100; BMI 18.3
--- NOTE | ~2023-04-09 | CT_ITS ---
EXAMINATION: CT BRAIN W/O DATE: 04/09/2023 13:49 INDICATION: Altered mental status TECHNIQUE: Computed tomography (CT) of the head was performed without intravenous contrast. The dose- length product was 605.33 mGy-cm. Automated exposure control and iterative reconstruction technique w ere employed. COMPARISON: No prior studies for comparison. FINDINGS: Normal brain parenchymal volume for age. Normal andrew-white differentiation. No acute intrac ranial hemorrhage, infarction, mass or mass effect. There is intracranial atherosclerosis. No ventriculomegaly or midline shift. Midline sagittal images demonstrate a normal corpus callosum, c raniovertebral junction and sella turcica. Basilar cisterns are patent. Paranasal sinuses and mastoids are pneumatized. No depressed skull fractures. IMPRESSION: 1. No acute intracranial abnormality. Reviewed, dictated and finalized at location B.
--- NOTE | ~2023-04-09 | XR_ITS ---
Portable chest x-ray Comparison: 04/01/2023 Clinical History: Altered mental status Findings: Extensive interstitial disease and haziness in the lungs is similar to prior exam. No pleu ral effusion or pneumothorax. Cardiomediastinal silhouette is stable. Bones and soft tissues are unr emarkable. Impression: Probable extensive diffuse chronic interstitial disease. Correlate for superimposed pulmonary edema o r infection. Reviewed, dictated and finalized at location . Impression: Probable extensive diffuse chronic interstitial disease. Correlate for superimp osed pulmonary edema or infection.
--- NOTE | ~2023-04-09 | CT_ITS ---
CT of the Abdomen and Pelvis: Indication: Epigastric pain Technique: 2.5 mm axial scans were obtained through the abdomen and pelvis following intravenous adm inistration of 100 cc of Omnipaque 350. Dose reduction technique was used on this scan by utilizing a utomated exposure control and iterative reconstruction technique. The dose-length product (DLP) was 2 75.93 mGy-cm. COMPARISON: 03/29/2023 Findings: Scans through the lung bases demonstrate bibasilar atelectatic change. The liver, spleen, pancreas, adrenals and kidneys are within normal limits. Post cystectomy clips pre sent. There are atherosclerotic calcifications of the aorta. No lymphadenopathy. No bowel obstruction or bowel wall thickening. There is no evidence to suggest acute appendicitis. Th ere is a probable 3.1 x 1.0 x 4.6 cm fluid collection just deep to an open upper abdominal midline wo und (axial image 48 for example, sagittal image 91 for example).), which could reflect postoperative seroma versus abscess. Images through the pelvis are degraded by streak artifact from left hip arthroplasty. Urinary bladder unremarkable. No pelvic mass evident. Mildly prominent bilateral inguinal lymph nodes are present, l eft larger than right. Stable compression fractures of T12 and L1 are present. Impression: 3.1 x 1.0 x 4.6 cm fluid collection just deep to the upper abdominal midline wound, as detailed above . This could reflect postoperative seroma versus abscess. Correlate clinically. Mildly prominent/enlarged inguinal lymph nodes, especially on the left side, nonspecific, stable from prior exam. Correlate clinically. Consider additional workup as indicated. Reviewed, dictated and finalized at location . Impression: 3.1 x 1.0 x 4.6 cm fluid collection just deep to the upper abdominal midline wo und, as detailed above. This could reflect postoperative seroma versus abscess. Correlate clinically. Mildly prominent/enlarged inguinal lymph nodes, especially on the left side, no nspecific, stable from prior exam. Correlate clinically. Consider additional wo rkup as indicated.
--- NOTE | 2023-04-09 10:10 | ECG_ITS ---
Measurements Intervals Delta Rate: 75 P: 75 [place]: 161 QRS: 95 QRSD: 94 T: -65 QT: 383 QTc: 429 Interpretive Statements SINUS RHYTHM DELAYED PRECORDIAL R/S TRANSITION BORDERLINE ST-T WAVE ABNORMALITY- ANT/INF LEADS BASELINE ARTIFACT- I, II, III, AVR, AVL, AVF, V1-V6 BORDERLINE ECG COMPARED TO ECG 04/01/2023 09:09:38 NO SIGNIFICANT CHANGES Electronically Signed On 04-09-2023 11:05:45 CDT by Michael Cannon D.O.
[2023-04-09 10:31] LABS: Basophils Absolute Auto 0.1 K/mm3 (0.0-0.1); Basophils Percent Auto 0.8 % (0.2-1.2); Eosinophils Absolute Auto 0.2 K/mm3 (0-0.3); Eosinophils Percent Auto 2.4 % (0-4.4); Hematocrit 32.4 % (37.0-47.0); Hemoglobin 10.3 g/dL (12.0-15.0); Immature Granulocyte Absolute 0.03 K/mm3 (0.00-0.031); Immature Granulocyte Percent A 0.4 % (0-0.5); Lymphocytes Absolute Auto 1.63 K/mm3 (0.9-3.2); Lymphocytes Percent Auto 21.6 % (18.3-44.2); Mean Corpuscular HGB Conc 31.8 g/dl (32-36); Mean Corpuscular Hemoglobin 27.3 pg (26-34); Mean Corpuscular Volume 85.9 fl (80-100); Mean Platelet Volume 10.8 fl (7.4-10.4); Monocytes Absolute Auto 0.3 K/mm3 (0.1-0.6); Monocytes Percent Auto 4.4 % (2.6-8.5); Neutrophils Absolute Auto 5.3 K/mm3 (1.3-6.7); Neutrophils Percent Auto 70.4 % (45.5-73.1); Platelet Count Result 508 k/mm3 (150-375); Red Blood Count 3.77 M/mm3 (4.2-5.4); Red Cell Distribution Width 18.5 % (11.5-14.5); White Blood Count 7.6 K/mm3 (4.5-10.0)
[2023-04-09 10:33] LABS: Appearance Urine Clear (Clear); Bilirubin Urine Negative (Negative); Blood Urine Negative (Negative); Color Urine Yellow (Yellow); Glucose Urine UA Negative (Negative); Ketones Urine 1+ mg/dL (Negative); Leukocyte Esterase Ur Negative LEU/UL (Negative); Nitrate Urine Negative (Negative); Protein Urine Negative (Negative); Specific Grav Ur 1.012 (1.001-1.035); Urobilinogen Urine 0.2 mg/dL (<2.0); pH Urine 6.5 (5.0-9.0)
[2023-04-09 10:40] LABS: Alanine Aminotransferase 22 U/L (6-35); Albumin Level 3.9 g/dL (3.5-5.1); Alkaline Phosphatase 91 U/L (38-126); Anion Gap 8 mmol/L (8-16); Aspartate Amino Transferase 31 U/L (14-36); Bilirubin,Total 0.6 mg/dL (0.2-1.3); Blood Urea Nitrogen 14 mg/dL (7-17); Carbon Dioxide 23 mmol/L (22-30); Chloride 106 mmol/L (98-107); Estimated Glomerular Filt Rate > 60; Glucose 91 mg/dL (65-110); Sodium 137 mmol/L (137-145)
[2023-04-09 10:41] LABS: INR 1.1; Partial Thromboplastin Time 30.6 SECONDS (22.3-36.8); Prothrombin Time 14.9 Seconds (11.1-14.7)
[2023-04-09 10:58] LABS: Add Urine Microscopic? NO
--- NOTE | 2023-04-09 14:44 | ED.GENADULT ---
HPI - General Adult General Chief complaint: Altered Mental Status Stated complaint: post-op complications Time Seen by Provider: 04/09/23 10:09 History of Present Illness HPI narrative: Patient is a 67-year-old female who presents ER with altered mental status. Began this morning. Patient has been discharged from the hospital just for couple of days. She has a wound VAC to her mid abdomen that she pulled off. She had a incisional hernia that had become infected and required the wound VAC. Typically patient is able to converse but at this time is altered to the point where she cannot. She will not follow commands and pulls away from caregivers who are trying to help her. According to her she did not receive any of her narcotic pain meds today nor did she receive them yesterday. Related Data Home Medications Medication Instructions Recorded Confirmed pregabalin 100 mg capsule 100 mg PO BID 08/27/22 03/26/23 sertraline 100 mg tablet 100 mg PO QAM 08/27/22 03/26/23 furosemide 20 mg tablet 20 mg PO DAILY 03/18/23 03/26/23 multivitamin with minerals-folic 1 tablet PO DAILY 03/18/23 03/26/23 acid 0.4 mg tablet oxybutynin chloride 5 mg 5 mg PO QAM 03/18/23 03/26/23 tablet,extended release 24 hr oxycodone 10 mg tablet 10 mg PO TID PRN Pain 03/18/23 03/26/23 oxycodone 10 mg tablet,crush 10 mg PO BID 03/18/23 03/26/23 resistant,extended release 12 hr (OxyContin) umeclidinium 62.5 mcg-vilanterol 1 inh inhalation QA 03/18/23 03/26/23 25 mcg/actuation powdr for inhalation (Anoro Ellipta) Allergies Allergy/AdvReac Type Severity Reaction Status Date / Time atorvastatin Allergy Itching Verified 03/31/23 08:45 codeine Allergy Hives Verified 03/26/23 07:36 vancomycin Allergy Rash Verified 03/26/23 07:36 Cephalosporins AdvReac Diarrhea Verified 03/31/23 08:45 Review of Systems Review of Systems: ROS unobtainable: Yes unobtainable due to medical condition PMFSH Past Medical History Medical History Atrial fibrillation CHF (congestive heart failure), NYHA class I Chronic back pain Chronic, continuous use of opioids COPD (chronic obstructive pulmonary disease) Depression Foot drop Hypertension Iron deficiency anemia Neuropathy Overactive bladder Personal history of nicotine dependence Surgical History Surgical History H/O tubal ligation tubal repair after a tubal H/O umbilical hernia repair History of appendectomy History of foot surgery History of incisional hernia repair History of laparoscopic cholecystectomy 12/01/2022 - laparoscopic cholecystectomy with repair bile duct injury, placement T-tube, T-tube cholangiogram History of spinal fusion Family History Family History Other Heart disease Hypertension Social History Social History Social History: Current smoker around 5 cigarettes per day. She has smoked since age 19yo - up to 0.75 or 1ppd for many years. In 2018 she cut down to 0.5ppd and in December she cut down to 5 cigarettes per day now. She reports drinking about 6 beers per week. Denies marijuana or illicit substance use. 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 She lives at home with her and 2 children. Code status full code Smoking packs per day: 0.25 Smoking cigarettes per day: 5.0 Years smoked: 40 Smoking pack-years: 10.00 Smoking status: Current every day smoker Tobacco type: cigarettes Second hand tobacco smoke exposure: No Additional smoking assessment comments: CURRENTLY SMOKING 5-6 CIG/DAY Alcohol intake: current Drinks per week: 7 Substance use: never Substance use type: d
[2023-04-09 15:34] LABS: Alveolar/Arterial O2 Gradient < 0.0 mmHg; Base Excess ABG -2.9 mEq/l (+/-2.0); Carboxyhemoglobin 0.3 % THb (0-2.0); Fractional Inspired Oxygen 21 %; HCO3 ABG 18.5 mEq/l (22.0-26.0); Methemoglobin ABG 0.1 %THb (0-1.5); Oxygen Saturation ABG 98.9 % (95.0-100.0); Oxyhemoglobin 97.1 % THb (90.0-100.0); PO2 ABG 126.1 mmHg (80.0-100.0); Reduced Hemoglobin 2.5 %THb (0-5.0); Total Hemoglobin 10.1 g/dL (12.0-18.0)
[2023-04-09 15:36] LABS: Device ROOM AIR; Modified Allen's Test Pass; PCO2 ABG 22.4 mmHg (35.0-45.0); Site Drawn RIGHT RADIAL; pH ABG 7.534 (7.350-7.450)
[2023-04-09 17:17] LABS: Acetaminophen < 10 ug/mL (10-30); Salicylate < 1.0 mg/dL (2-20)
[2023-04-09 17:29] LABS: Barbiturate Screen Urine Negative (Negative)
[2023-04-09 17:34] LABS: Amphetamine Screen Urine Negative (Negative); Methadone Screen Urine Negative (Negative); Phencyclidine Screen Urine Negative (Negative)
[2023-04-09 17:39] LABS: Cannabinoid Screen Urine Negative (Negative); Cocaine Screen Urine Negative (Negative); Opiate Screen Urine Negative (Negative)
[2023-04-09 17:52] LABS: Benzodiazepines Screen Urine Negative (Negative)
--- NOTE | 2023-04-09 18:01 | ADMGEN ---
This patient, [place]al [place], was admitted to Medical Room 344-01. Patient/family oriented to hospital policies and general routines including ID bracelet, bed and alarms, visiting hours, pain management, procedures, bathroom and other care routines, personal items, smoking policy, room service/diet, and visiting hours. Information on how to activate the Rapid Response Team has been discussed. Patient/Family are encouraged to report perceived risks to care and to ask questions if they do not understand what they are told or what they should do.
[2023-04-09] MEDS: SODIUM CHLORIDE 0.9% IV 1,000 ML 125 ML IV CONT (18:23)
--- NOTE | 2023-04-09 20:40 | PM.IMHP ---
H&P: HPI History of Present Illness Date/Time: 04/09/23 20:40 Chief Complaint: 67 years old female with past medical history of chronic narcotic dependence has history of epigastric incisional hernia repair was done on complicated by abscess status post incision and drainage on 03/30/2023 patient was discharged on wound VAC patient today has altered mental status became sleepy L confused she pulled out her wound VAC CT scan of the abdomen concerning for fluid collection seroma versus abscess general surgery was consulted patient was started on IV antibiotics mental status has improved patient will be admitted to the hospital for further evaluation and treatment of altered mental status Review of Systems Review of Systems: limited due to mental status change [facility] Past Medical History Medical History Atrial fibrillation CHF (congestive heart failure), NYHA class I Chronic back pain Chronic, continuous use of opioids COPD (chronic obstructive pulmonary disease) Depression Foot drop Hypertension Iron deficiency anemia Neuropathy Overactive bladder Personal history of nicotine dependence Surgical History Surgical History H/O tubal ligation tubal repair after a tubal H/O umbilical hernia repair History of appendectomy History of foot surgery History of incisional hernia repair History of laparoscopic cholecystectomy 12/01/2022 - laparoscopic cholecystectomy with repair bile duct injury, placement T-tube, T-tube cholangiogram History of spinal fusion Family History Family History Other Heart disease Hypertension Social History Social History Social History: Current smoker around 5 cigarettes per day. She has smoked since age 19yo - up to 0.75 or 1ppd for many years. In 2018 she cut down to 0.5ppd and in December she cut down to 5 cigarettes per day now. She reports drinking about 6 beers per week. Denies marijuana or illicit substance use. 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 She lives at home with her and 2 children. Code status full code Smoking packs per day: 0.25 Smoking cigarettes per day: 5.0 Years smoked: 40 Smoking pack-years: 10.00 Smoking status: Current every day smoker Second hand tobacco smoke exposure: No Additional smoking assessment comments: CURRENTLY SMOKING 5-6 CIG/DAY Alcohol intake: current Drinks per week: 7 Substance use: never Substance use type: does not use Lack of Transportation: No Lack of Food: Never True Current Housing: I Have Housing Concerned About Future Housing: No Difficulty Paying Gas/Electric Bills: No Difficulty Paying for Meds: YES Currently Unemployed: No Education: High School Diploma/GED Difficulty w/ Childcare or Family Care: No Living arrangements: with family Additional living arrangements comments: HUSB Spiritual care concerns: No Meds Home Medications and Allergies Home Medications Medication Instructions Recorded Confirmed Type pregabalin 100 mg capsule 100 mg PO BID 08/27/22 04/09/23 History sertraline 100 mg tablet 100 mg PO QAM 08/27/22 04/09/23 History albuterol sulfate 90 mcg/actuation 2 puff inhalation Q4H PRN 01/04/23 04/09/23 Rx aerosol inhaler Shortness Of Breath #1 g metoprolol succinate 100 mg 100 mg PO QAM #30 tabs 01/04/23 04/09/23 Rx tablet,extended release 24 hr (Toprol XL) sacubitril 24 mg-valsartan 26 mg 1 tablet PO Q12HR #30 tabs 01/04/23 04/09/23 Rx tablet (Entresto) furosemide 20 mg tablet 20 mg PO DAILY 03/18/23 04/09/23 History multivitamin with minerals-folic 1 tablet PO DAILY 03/18/23
[2023-04-09] MEDS: SACUBITRIL/VALSARTAN 24-26 MG TABLET 1 TAB PO (21:10)
[2023-04-09] MEDS: FAMOTIDINE 20 MG TABLET PO (21:10)
[2023-04-09] MEDS: HYDROcodone/acetaminophen (*CRX) 5-325 MG TABLET 1 TAB PO (21:10)
[2023-04-09] MEDS: DOXYCYCLINE 100 MG/NS 100 ML 100 MG/100 ML BAG IVPB (21:11)
[2023-04-09] MEDS: MELATONIN 3 MG TABLET PO (21:11)
[2023-04-09 22:33] LABS: Ammonia < 9 umol/L (9-30)
[2023-04-09] MEDS: PIPERACILLN/TAZ 3.375GM/NS50ML 3.375 GM/50 ML BAG IVPB (22:33)
[2023-04-09 23:15] LABS: Thyroid Stimulating Hormone Reflex 0.146 uIU/mL (0.465-4.68)
[2023-04-10] VITALS (11 sets, daily range): BP systolic 147–156; BP diastolic 57–84; PULSE 76–161; RESP 16–22; TEMP 36.3–36.7; O2SAT 92–95; BMI 18.3
[2023-04-10 00:11] LABS: Folic Acid > 20.0 ng/mL (2.76->20)
[2023-04-10] MEDS: HYDROcodone/acetaminophen (*CRX) 5-325 MG TABLET 1 TAB PO ×2 (01:05→04:46)
[2023-04-10] MEDS: LORazepam INJ (*CRX) 2 MG/ML VIAL 0.5 MG IV PUSH (01:37)
[2023-04-10] MEDS: METOPROLOL TARTRATE INJ 5 MG/5 ML VIAL IV PUSH (04:58)
[2023-04-10 05:46] LABS: Free T4 Free Thyroxine Reflex 1.17 ng/dL (0.78-2.19)
[2023-04-10] MEDS: PIPERACILLN/TAZ 3.375GM/NS50ML 3.375 GM/50 ML BAG IVPB (05:51)
--- NOTE | 2023-04-10 07:27 | PM.PNGS ---
Progress Note: A&P Assessment and Plan (1) Altered mental status: Code(s): R41.82 - Altered mental status, unspecified Status: Acute Assessment and Plan: etiology unclear. Evaluation in process. (2) Intra-abdominal fluid collection: Code(s): R18.8 - Other ascites Status: Acute Assessment and Plan: Most likely a seroma. Agree with consultation documented and performed by Nicole SERNA yesterday. (3) History of incisional hernia repair: Code(s): Z98.890 - Other specified postprocedural states; Z87.19 - Personal history of other diseases of the digestive system Status: Chronic Assessment and Plan: Repair intact (4) Infected hematoma: Code(s): T14.8XXA - Other injury of unspecified body region, initial encounter; L08.9 - Local infection of the skin and subcutaneous tissue, unspecified Status: Acute Assessment and Plan: incision and drainage done for infected hematoma (5) Open wound anterior abdominal wall: Code(s): S31.109A - Unspecified open wound of abdominal wall, unspecified quadrant without penetration into peritoneal cavity, initial encounter Status: Acute Assessment and Plan: continue silver gel dressing changes daily. Would prefer patient have a wound VAC but cannot really proceed with this until mental status is again normal. Subjective Subjective Date/Time Seen: 04/10/23 07:27 Patient reports: afebrile and other ( [place] but still quite confused) Review of Systems Review of Systems: ROS unobtainable: Yes unobtainable due to mental status Exam Const: General: comfortable, lethargic, tired appearing and underweight; No cooperative Orientation/consciousness: confusion GI: Inspection: incision ( epigastric wound looks clean, no change from when discharged.) GI Palp: Yes Tenderness to palpation present (GI) Auscultation: normal bowel sounds Objective Data Vital Signs Vital Signs: Vital Signs - 24 hr 04/09/23 10:07 04/09/23 10:56 04/09/23 10:12 Temperature 37.5 C Pulse Rate 80 79 80 Respiratory Rate 16 20 Blood Pressure 170/76 H Pulse Oximetry 92 95 Oxygen Delivery Room Air Oxygen Flow Rate 04/09/23 10:15 04/09/23 10:16 04/09/23 10:30 Temperature Pulse Rate 97 94 75 Respiratory Rate 21 H 24 H 15 Blood Pressure 191/81 H Pulse Oximetry 95 96 100 Oxygen Delivery Oxygen Flow Rate 04/09/23 10:45 04/09/23 10:46 04/09/23 11:00 Temperature Pulse Rate 76 79 89 Respiratory Rate 21 H 22 H 18 Blood Pressure Pulse Oximetry 98 100 Oxygen Delivery Oxygen Flow Rate 04/09/23 11:01 04/09/23 11:15 04/09/23 11:16 Temperature Pulse Rate 79 90 80 Respiratory Rate 17 22 H 20 Blood Pressure 163/67 H 150/76 H Pulse Oximetry 94 94 Oxygen Delivery Oxygen Flow Rate 04/09/23 11:17 04/09/23 11:33 04/09/23 11:50 Temperature Pulse Rate 78 71 77 Respiratory Rate 19 19 18 Blood Pressure Pulse Oximetry 94 96 95 Oxygen Delivery Oxygen Flow Rate 04/09/23 12:00 04/09/23 12:17 04/09/23 12:32 Temperature Pulse Rate 79 78 81 Respiratory Rate 19 18 24 H Blood Pressure Pulse Oximetry 94 95 94 Oxygen Delivery Oxygen Flow Rate 04/09/23 12:45 04/09/23 12:46 04/09/23 13:00 Temperature Pulse Rate 76 78 74 Respiratory Rate 19 17 19 Blood Pressure 152/69 H Pulse Oximetry 95 94 94 Oxygen Delivery Oxygen Flow Rate 04/09/23 13:01 04/09/23 13:02 04/09/23 13:50 Temperature Pulse Rate 77 77 82 Respiratory Rate 15 19 14 Blood Pressure 156/70 H Pulse Oximetry 94 93 98 Oxygen Delivery Oxygen Flow Rate 04/09/23 14:00 04/09/23 14:07 04/09/23 14:15 Temperature Pulse Rate 81 77 73 Respiratory Rate 19 18 16 Blood Pressure 146/72 H Pulse Oximetry 97 97 98 Oxygen Delivery Oxygen Flow Rate 04/09/23 14:16 04/09/23 14:30 04/09/23 14:31 Temperature Pulse Rate 69 72 73 Respirato
[2023-04-10 09:47] LABS: Basophils Absolute Auto 0.1 K/mm3 (0.0-0.1); Basophils Percent Auto 0.4 % (0.2-1.2); Eosinophils Percent Auto 0.2 % (0-4.4); Hematocrit 30.3 % (37.0-47.0); Hemoglobin 9.5 g/dL (12.0-15.0); Immature Granulocyte Absolute 0.06 K/mm3 (0.00-0.031); Immature Granulocyte Percent A 0.4 % (0-0.5); Lymphocytes Absolute Auto 0.19 K/mm3 (0.9-3.2); Lymphocytes Percent Auto 1.3 % (18.3-44.2); Mean Corpuscular HGB Conc 31.4 g/dl (32-36); Mean Corpuscular Hemoglobin 27.9 pg (26-34); Mean Corpuscular Volume 88.9 fl (80-100); Monocytes Absolute Auto 0.3 K/mm3 (0.1-0.6); Neutrophils Absolute Auto 13.7 K/mm3 (1.3-6.7); Neutrophils Percent Auto 95.7 % (45.5-73.1); Platelet Count Result 469 k/mm3 (150-375); Red Blood Count 3.41 M/mm3 (4.2-5.4); Red Cell Distribution Width 18.8 % (11.5-14.5); White Blood Count 14.3 K/mm3 (4.5-10.0)
[2023-04-10 09:56] LABS: Alanine Aminotransferase 19 U/L (6-35); Albumin Level 3.8 g/dL (3.5-5.1); Alkaline Phosphatase 84 U/L (38-126); Anion Gap 15 mmol/L (8-16); Aspartate Amino Transferase 51 U/L (14-36); Bilirubin,Total 2.1 mg/dL (0.2-1.3); Blood Urea Nitrogen 12 mg/dL (7-17); Calcium 8.6 mg/dL (8.4-10.2); Carbon Dioxide 18 mmol/L (22-30); Chloride 108 mmol/L (98-107); Estimated CRCL calculation 47 ml/min; Estimated Glomerular Filt Rate > 60; Glucose 103 mg/dL (65-110); Potassium 3.2 mmol/L (3.4-5.0); Sodium 141 mmol/L (137-145)
--- NOTE | 2023-04-10 09:58 | PC.NURSE ---
Per , ok to override interaction warning for haldol.
[2023-04-10] MEDS: METOPROLOL SUCCINATE EXT REL 100 MG TABCR PO (10:05)
[2023-04-10] MEDS: SACUBITRIL/VALSARTAN 24-26 MG TABLET 1 TAB PO ×2 (10:05→20:50)
[2023-04-10] MEDS: SILVERGEL (ELTA) 45 ML 1 APPLIC TOPICAL (10:06)
[2023-04-10] MEDS: FAMOTIDINE 20 MG TABLET PO ×2 (10:08→20:50)
[2023-04-10] MEDS: POTASSIUM CHLORIDE 20 MEQ TABLET.ER PO (10:10)
--- NOTE | 2023-04-10 11:10 | PCRCNOTE ---
Window of time for administration has passed. See next scheduled administration.
--- NOTE | 2023-04-10 11:19 | PM.IMPN ---
Progress Note: A&P Assessment and Plan (1) Altered mental status: Code(s): R41.82 - Altered mental status, unspecified Status: Acute Assessment and Plan: multifactorial probably related to dehydration and chronic opioid use hold oxycodone, hold Lyrica (2) Open wound anterior abdominal wall: Code(s): S31.109A - Unspecified open wound of abdominal wall, unspecified quadrant without penetration into peritoneal cavity, initial encounter Status: Acute Assessment and Plan: probably associated with abscess versus seroma associated with wound infection. surgery consulted. Appears to be noninfectious. Discontinue antibiotic (3) Chronic, continuous use of opioids: Code(s): F11.90 - Opioid use, unspecified, uncomplicated Status: Chronic Assessment and Plan: Hold for now given altered mental status (4) Atrial fibrillation: Code(s): I48.91 - Unspecified atrial fibrillation Status: Chronic Assessment and Plan: on metoprolol (5) CHF (congestive heart failure), NYHA class I: Code(s): I50.9 - Heart failure, unspecified Status: Acute Assessment and Plan: continue to monitor closely for fluid overload (6) History of incisional hernia repair: Code(s): Z98.890 - Other specified postprocedural states; Z87.19 - Personal history of other diseases of the digestive system Status: Chronic Assessment and Plan: surgery was consulted (7) Hyperthyroidism: Code(s): E05.90 - Thyrotoxicosis, unspecified without thyrotoxic crisis or storm Status: Resolved Assessment and Plan: TSH low but free T4 normal (8) COPD (chronic obstructive pulmonary disease): Qualifiers: COPD type: emphysema Emphysema type: unspecified Qualified Code(s): J43.9 - Emphysema, unspecified Code(s): J44.9 - Chronic obstructive pulmonary disease, unspecified Status: Chronic Assessment and Plan: continue home medication Subjective Date/time seen: 04/10/23 11:19 Interval history: Patient is confused this morning. Has been agitated off and on according to nursing staff Review of Systems Review of Systems: ROS unobtainable: Yes unobtainable due to mental status Exam Narrative: GENERAL: Confused, no acute distress. HEAD: Normocephalic, atraumatic. NECK: Supple. No adenopathy, no masses. RESPIRATORY: Airway patent, respirations nonlabored. Clear to auscultation bilaterally, no rales, rhonchi, wheezing. CARDIOVASCULAR: Regular rate and rhythm without murmurs, rubs, or gallops. Peripheral pulses 2+ and equal bilaterally. ABDOMINAL: Soft, nontender, nondistended, no hepatosplenomegaly. Normoactive BS. positive abdominal epigastric wound with drainage MUSCULOSKELETAL: Moves all extremities. Strength/ROM intact without gross deformities or TTP. No edema. No calf tenderness. No chest wall tenderness palpation. SKIN: as above NEURO: Confused PSYCHIATRIC: Not assessed Objective Data Vital Signs Vital Signs: Vital Signs - 24 hr 04/09/23 11:33 04/09/23 11:50 04/09/23 12:00 Temperature Pulse Rate 71 77 79 Respiratory Rate 19 18 19 Blood Pressure Pulse Oximetry 96 95 94 Oxygen Delivery Oxygen Flow Rate 04/09/23 12:17 04/09/23 12:32 04/09/23 12:45 Temperature Pulse Rate 78 81 76 Respiratory Rate 18 24 H 19 Blood Pressure Pulse Oximetry 95 94 95 Oxygen Delivery Oxygen Flow Rate 04/09/23 12:46 04/09/23 13:00 04/09/23 13:01 Temperature Pulse Rate 78 74 77 Respiratory Rate 17 19 15 Blood Pressure 152/69 H 156/70 H Pulse Oximetry 94 94 94 Oxygen Delivery Oxygen Flow Rate 04/09/23 13:02 04/09/23 13:50 04/09/23 14:00 Temperature Pulse Rate 77 82 81 Respiratory Rate 19 14 19 Blood Pressure Pulse Oximetry 93 98 97 Oxygen Delivery Oxygen Flow Rate 04/09/23 14:07 04/09/23 14:15 04/09/23 14:16 Temperature Pulse Rate 77 73 69 R
[2023-04-11] VITALS (10 sets, daily range): BP systolic 158–166; BP diastolic 84–89; PULSE 57–80; RESP 16–18; TEMP 36.4–36.8; O2SAT 93–95
[2023-04-11 05:57] LABS: Basophils Absolute Auto 0.1 K/mm3 (0.0-0.1); Eosinophils Absolute Auto 0.2 K/mm3 (0-0.3); Hematocrit 28.4 % (37.0-47.0); Hemoglobin 9.1 g/dL (12.0-15.0); Immature Granulocyte Absolute 0.02 K/mm3 (0.00-0.031); Immature Granulocyte Percent A 0.3 % (0-0.5); Lymphocytes Absolute Auto 1.05 K/mm3 (0.9-3.2); Lymphocytes Percent Auto 18.2 % (18.3-44.2); Mean Corpuscular Hemoglobin 26.9 pg (26-34); Mean Platelet Volume 10.6 fl (7.4-10.4); Monocytes Absolute Auto 0.4 K/mm3 (0.1-0.6); Monocytes Percent Auto 6.9 % (2.6-8.5); Neutrophils Percent Auto 69.6 % (45.5-73.1); Platelet Count Result 348 k/mm3 (150-375); Red Blood Count 3.38 M/mm3 (4.2-5.4); Red Cell Distribution Width 17.2 % (11.5-14.5); White Blood Count 5.8 K/mm3 (4.5-10.0)
[2023-04-11 06:15] LABS: Alanine Aminotransferase 17 U/L (6-35); Albumin Level 3.5 g/dL (3.5-5.1); Alkaline Phosphatase 73 U/L (38-126); Anion Gap 7 mmol/L (8-16); Aspartate Amino Transferase 30 U/L (14-36); Blood Urea Nitrogen 10 mg/dL (7-17); Calcium 8.5 mg/dL (8.4-10.2); Carbon Dioxide 25 mmol/L (22-30); Chloride 110 mmol/L (98-107); Estimated CRCL calculation 54 ml/min; Estimated Glomerular Filt Rate > 60; Glucose 102 mg/dL (65-110); Potassium 2.8 mmol/L (3.4-5.0); Sodium 142 mmol/L (137-145)
[2023-04-11 06:36] LABS: Bilirubin,Total 0.6 mg/dL (0.2-1.3)
[2023-04-11] MEDS: POTASSIUM CHLORIDE 20 MEQ TABLET.ER 40 MEQ PO ×2 (06:47→13:08)
--- NOTE | 2023-04-11 07:54 | PM.PNGS ---
Progress Note: A&P Assessment and Plan (1) Altered mental status: Qualifiers: Altered mental status type: stupor Qualified Code(s): R40.1 - Stupor Code(s): R41.82 - Altered mental status, unspecified Status: Acute Assessment and Plan: Much improved. This has happened on prior occasions. Despite negative opiate drug screen, suspect has to do with overuse of oxycodone a few days ago. (2) Open wound anterior abdominal wall: Qualifiers: Encounter type: subsequent encounter Qualified Code(s): S31.109D - Unspecified open wound of abdominal wall, unspecified quadrant without penetration into peritoneal cavity, subsequent encounter Code(s): S31.109A - Unspecified open wound of abdominal wall, unspecified quadrant without penetration into peritoneal cavity, initial encounter Status: Acute Assessment and Plan: Open wound is clean and is slowly healing. I would prefer patient went home on wound VAC as she was prior to her present mental status changes and illness. There may be some pushback with this and if she will not agree, could just go home on silver gel dressing changes as she is currently doing. Subjective Subjective Date/Time Seen: 04/11/23 07:54 Patient reports: no new complaints, feels better ( Mental status improved) and other ( no recall over the last 2 or 3 days and no idea why would have mental status changes.) Review of Systems Review of Systems: All systems reviewed & are unremarkable except as noted in HPI and below ( HPI) Constitutional: Constitutional: Reports as per HPI Gastrointestinal: Gastrointestinal: Denies abdominal pain, Denies bloating, Denies GI cramping and Denies nausea Psychiatric: Psychiatric: Reports other ( amnestic) Exam Const: General: comfortable, alert, awake and underweight Orientation/consciousness: oriented to person ( Dr. Chamberlain), oriented to place ( [facility]), oriented to time ( thought the month was March instead of march) and No confusion GI: Inspection: incision ( epigastric wound stable, healing.) GI Palp: Yes Soft to palpation and Yes Tenderness to palpation present (GI) Objective Data Vital Signs Vital Signs: Vital Signs - 24 hr 04/10/23 10:05 04/10/23 08:00 04/10/23 12:00 Temperature Pulse Rate 106 H 133 H 96 Respiratory Rate Blood Pressure Pulse Oximetry Oxygen Delivery Oxygen Flow Rate 04/10/23 08:00 04/10/23 14:00 04/10/23 16:00 Temperature 36.3 C L Pulse Rate 106 H 92 Respiratory Rate 18 Blood Pressure 147/57 H Pulse Oximetry 93 92 Oxygen Delivery Nasal Cannula Oxygen Flow Rate 2 04/10/23 20:12 04/10/23 20:00 04/10/23 20:00 Temperature 36.5 C Pulse Rate 76 89 Respiratory Rate 22 H Blood Pressure 150/60 H Pulse Oximetry 95 94 Oxygen Delivery Nasal Cannula Oxygen Flow Rate 2 04/11/23 00:00 04/11/23 04:00 04/11/23 04:35 Temperature 36.6 C Pulse Rate 67 70 80 Respiratory Rate 18 Blood Pressure 158/89 H Pulse Oximetry 93 Oxygen Delivery Oxygen Flow Rate Intake/Output Intake/Output: Intake & Output 04/08/23 04/09/23 04/10/23 04/11/23 23:59 23:59 23:59 23:59 Intake Total 50 240 350 Output Total 300 Balance -250 240 350 Meds/Results Medications: Active Medications Generic Name Dose Route Start Last Admin Trade Name Freq PRN Reason Stop Dose Admin Acetaminophen 650 mg 04/09/23 16:53 Acetaminophen 325 Mg Tablet PO Q4H PRN Mild Pain (1-3) or Fever Albuterol 2 puff 04/09/23 20:35 Albuterol Sulfate (*Sp) Aerosol 1 Puff INHALATION Q4H PRN Shortness Of Breath Famotidine 20 mg 04/09/23 21:00 04/10/23 20:50 Famotidine 20 Mg Tablet PO 20 mg Q12HR FEMI Administration Haloperidol Lactate 4 mg 04/10/23 09:56 Haloperidol Lactate 5 Mg/Ml Vial IM Q6HR PRN Agitation Hydralazine HCl 10 mg 04/09/23 20:36 Hydralazine Hcl 20 Mg/Ml Vial IV
[2023-04-11] MEDS: UMECLIDINIUM/VILANTEROL 62.5-25 MCG ELLIPTA 1 PUFF INHALATION (09:31)
[2023-04-11] MEDS: THERAPEUTIC MULTIVITAMINS/MINERALS TAB (*BKC) 1 TABLET PO (09:34)
[2023-04-11] MEDS: FAMOTIDINE 20 MG TABLET PO ×2 (09:34→20:24)
[2023-04-11] MEDS: POTASSIUM CHLORIDE 20 MEQ TABLET.ER PO (09:34)
[2023-04-11] MEDS: SACUBITRIL/VALSARTAN 24-26 MG TABLET 1 TAB PO ×2 (09:35→20:24)
[2023-04-11] MEDS: METOPROLOL SUCCINATE EXT REL 100 MG TABCR PO (09:35)
--- NOTE | 2023-04-11 12:07 | PM.IMPN ---
Progress Note: A&P Assessment and Plan (1) Altered mental status: Qualifiers: Altered mental status type: stupor Qualified Code(s): R40.1 - Stupor Code(s): R41.82 - Altered mental status, unspecified Status: Acute Assessment and Plan: much improved. Almost back to baseline. multifactorial probably related to dehydration and chronic opioid use hold oxycodone, hold Lyrica (2) Open wound anterior abdominal wall: Qualifiers: Encounter type: subsequent encounter Qualified Code(s): S31.109D - Unspecified open wound of abdominal wall, unspecified quadrant without penetration into peritoneal cavity, subsequent encounter Code(s): S31.109A - Unspecified open wound of abdominal wall, unspecified quadrant without penetration into peritoneal cavity, initial encounter Status: Acute Assessment and Plan: probably associated with abscess versus seroma associated with wound infection. surgery consulted. Appears to be noninfectious. Discontinue antibiotic (3) Chronic, continuous use of opioids: Code(s): F11.90 - Opioid use, unspecified, uncomplicated Status: Chronic Assessment and Plan: Hold for now given altered mental status (4) Atrial fibrillation: Code(s): I48.91 - Unspecified atrial fibrillation Status: Chronic Assessment and Plan: on metoprolol (5) CHF (congestive heart failure), NYHA class I: Code(s): I50.9 - Heart failure, unspecified Status: Acute Assessment and Plan: continue to monitor closely for fluid overload (6) History of incisional hernia repair: Code(s): Z98.890 - Other specified postprocedural states; Z87.19 - Personal history of other diseases of the digestive system Status: Chronic Assessment and Plan: surgery was consulted. would recommend patient go home on wound VAC. Will discuss with patient's (7) Hyperthyroidism: Code(s): E05.90 - Thyrotoxicosis, unspecified without thyrotoxic crisis or storm Status: Resolved Assessment and Plan: TSH low but free T4 normal (8) COPD (chronic obstructive pulmonary disease): Qualifiers: COPD type: emphysema Emphysema type: unspecified Qualified Code(s): J43.9 - Emphysema, unspecified Code(s): J44.9 - Chronic obstructive pulmonary disease, unspecified Status: Chronic Assessment and Plan: continue home medication Subjective Date/time seen: 04/11/23 12:07 Interval history: patient is not confused this morning. She is awake alert oriented Review of Systems Review of Systems: negative other than HPI Exam Narrative: GENERAL: no acute distress. HEAD: Normocephalic, atraumatic. NECK: Supple. No adenopathy, no masses. RESPIRATORY: Airway patent, respirations nonlabored. Clear to auscultation bilaterally, no rales, rhonchi, wheezing. CARDIOVASCULAR: Regular rate and rhythm without murmurs, rubs, or gallops. Peripheral pulses 2+ and equal bilaterally. ABDOMINAL: Soft, nontender, nondistended, no hepatosplenomegaly. Normoactive BS. positive abdominal epigastric wound with drainage MUSCULOSKELETAL: Moves all extremities. Strength/ROM intact without gross deformities or TTP. No edema. No calf tenderness. No chest wall tenderness palpation. SKIN: as above NEURO: Confused PSYCHIATRIC: Not assessed Objective Data Vital Signs Vital Signs: Vital Signs - 24 hr 04/10/23 14:00 04/10/23 16:00 04/10/23 20:12 Temperature 97.3 F L 97.7 F Pulse Rate 106 H 92 76 Respiratory Rate 18 22 H Blood Pressure 147/57 H 150/60 H Pulse Oximetry 92 95 Oxygen Delivery Oxygen Flow Rate 04/10/23 20:00 04/10/23 20:00 04/11/23 00:00 Temperature Pulse Rate 89 67 Respiratory Rate Blood Pressure Pulse Oximetry 94 Oxygen Delivery Nasal Cannula Oxygen Flow Rate 2 04/11/23 04:00 04/11/23 04:35 04/11/23 09:35 Temperature 97.9 F Pulse Rate 7
[2023-04-11] MEDS: ACETAMINOPHEN 325 MG TABLET 650 MG PO ×2 (16:57→22:42)
[2023-04-11] MEDS: SILVERGEL (ELTA) 45 ML 1 APPLIC TOPICAL (16:58)
[2023-04-12] VITALS: PULSE 71
[2023-04-12 04:00] VITALS: PULSE 73
[2023-04-12 05:06] VITALS: BP 157/86; PULSE 74; RESP 16; TEMP 36.4; O2SAT 91
[2023-04-12 06:17] LABS: Basophils Absolute Auto 0.1 K/mm3 (0.0-0.1); Basophils Percent Auto 0.8 % (0.2-1.2); Eosinophils Absolute Auto 0.2 K/mm3 (0-0.3); Eosinophils Percent Auto 2.7 % (0-4.4); Hematocrit 33.2 % (37.0-47.0); Hemoglobin 10.1 g/dL (12.0-15.0); Immature Granulocyte Absolute 0.02 K/mm3 (0.00-0.031); Immature Granulocyte Percent A 0.3 % (0-0.5); Lymphocytes Absolute Auto 1.83 K/mm3 (0.9-3.2); Lymphocytes Percent Auto 24.6 % (18.3-44.2); Mean Corpuscular HGB Conc 30.4 g/dl (32-36); Mean Corpuscular Hemoglobin 26.6 pg (26-34); Mean Corpuscular Volume 87.4 fl (80-100); Mean Platelet Volume 11.3 fl (7.4-10.4); Monocytes Absolute Auto 0.5 K/mm3 (0.1-0.6); Monocytes Percent Auto 6.7 % (2.6-8.5); Neutrophils Absolute Auto 4.8 K/mm3 (1.3-6.7); Neutrophils Percent Auto 64.9 % (45.5-73.1); Platelet Count Result 442 k/mm3 (150-375); Red Cell Distribution Width 17.1 % (11.5-14.5); White Blood Count 7.5 K/mm3 (4.5-10.0)
[2023-04-12 06:33] LABS: Alanine Aminotransferase 17 U/L (6-35); Alkaline Phosphatase 80 U/L (38-126); Anion Gap 8 mmol/L (8-16); Aspartate Amino Transferase 24 U/L (14-36); Bilirubin,Total 0.6 mg/dL (0.2-1.3); Blood Urea Nitrogen 10 mg/dL (7-17); Carbon Dioxide 24 mmol/L (22-30); Chloride 110 mmol/L (98-107); Estimated CRCL calculation 54 ml/min; Estimated Glomerular Filt Rate > 60; Glucose 97 mg/dL (65-110); Potassium 3.3 mmol/L (3.4-5.0); Sodium 142 mmol/L (137-145)
[2023-04-12 07:40] VITALS: PULSE 73; RESP 18; O2SAT 91
[2023-04-12] MEDS: UMECLIDINIUM/VILANTEROL 62.5-25 MCG ELLIPTA 1 PUFF INHALATION (07:40)
[2023-04-12 08:00] VITALS: PULSE 78
[2023-04-12] MEDS: THERAPEUTIC MULTIVITAMINS/MINERALS TAB (*BKC) 1 TABLET PO (09:05)
[2023-04-12] MEDS: SACUBITRIL/VALSARTAN 24-26 MG TABLET 1 TAB PO (09:05)
[2023-04-12 09:06] VITALS: PULSE 73
[2023-04-12] MEDS: FAMOTIDINE 20 MG TABLET PO (09:06)
[2023-04-12] MEDS: POTASSIUM CHLORIDE 20 MEQ TABLET.ER 40 MEQ PO (09:06)
[2023-04-12] MEDS: METOPROLOL SUCCINATE EXT REL 100 MG TABCR PO (09:06)
[2023-04-12] MEDS: ACETAMINOPHEN 325 MG TABLET 650 MG PO (09:13)
--- NOTE | 2023-04-12 10:59 | PM.DS ---
DS: Admitting Diagnosis Discharge Date 04/12/2023 Admitting Diagnosis altered mental status intra-abdominal fluid collection DS: Discharge Diagnosis Discharge Diagnosis (1) Altered mental status: Qualifiers: Altered mental status type: stupor Qualified Code(s): R40.1 - Stupor Code(s): R41.82 - Altered mental status, unspecified Status: Acute (2) Intra-abdominal fluid collection: Code(s): R18.8 - Other ascites Status: Acute DS: Summary Hospital Course Hospital Course: (1) Altered mental status: ?much improved.? back to baseline. ?multifactorial probably related to dehydration and chronic opioid use resume oxycodone p.r.n.. Discontinue long-acting oxycodone (2) Open wound anterior abdominal wall: surgery consulted.? Appears to be noninfectious.? Discontinue antibiotic. surgery recommended wound VAC to place but it was not done. Patient to go home with dressing (3) Chronic, continuous use of opioids: advised judicious use (4) Atrial fibrillation: ?on metoprolol (5) CHF (congestive heart failure), NYHA class I: ?continue to monitor closely for fluid overload (6) History of incisional hernia repair: ?surgery was consulted.? would recommend patient go home on wound VAC.? (7) Hyperthyroidism: TSH low but free T4 normal (8) COPD (chronic obstructive pulmonary disease): ?continue home medication patient is clinically stable and is being discharged home Time Spent with Patient Time attestation: Total time spent providing and/or coordinating discharge services: Exam Narrative: GENERAL: no acute distress. HEAD: Normocephalic, atraumatic. NECK: Supple. No adenopathy, no masses. RESPIRATORY: Airway patent, respirations nonlabored. Clear to auscultation bilaterally, no rales, rhonchi, wheezing. CARDIOVASCULAR: Regular rate and rhythm without murmurs, rubs, or gallops. Peripheral pulses 2+ and equal bilaterally. ABDOMINAL: Soft, nontender, nondistended, no hepatosplenomegaly. Normoactive BS. positive abdominal epigastric wound with drainage MUSCULOSKELETAL: Moves all extremities. Strength/ROM intact without gross deformities or TTP. No edema. No calf tenderness. No chest wall tenderness palpation. SKIN: as above NEURO: Confused PSYCHIATRIC: Not assessed DS: Data Data Completed and Pending Labs on day of discharge: Labs from last 24 hours 04/12/23 05:37 WBC 7.5 RBC 3.80 L Hgb 10.1 L Hct 33.2 L MCV 87.4 MCH 26.6 MCHC 30.4 L RDW 17.1 H Plt Count 442 H MPV 11.3 H Immature Gran % (Auto) 0.3 Neut % (Auto) 64.9 Lymph % (Auto) 24.6 [place] % (Auto) 6.7 Eos % (Auto) 2.7 Baso % (Auto) 0.8 Lymph # (Auto) 1.83 [place] # (Auto) 0.5 Eos # (Auto) 0.2 Baso # (Auto) 0.1 Abs Immat Gran (auto) 0.02 Absolute Neuts (auto) 4.8 Absolute Nucleated RBC 0.0 Nucleated RBC % 0.0 Sodium 142 Potassium 3.3 L Chloride 110 H Carbon Dioxide 24 Anion Gap 8 BUN 10 Creatinine 0.60 L Estim Creat Clear Calc 54 Estimated GFR > 60 Glucose 97 Calcium 9.0 Total Bilirubin 0.6 AST 24 ALT 17 Alkaline Phosphatase 80 Total Protein 8.0 Albumin 4.0 Preliminary micro results at discharge 04/09/23 22:11 Blood Culture - Preliminary Blood 04/09/23 22:11 Blood Culture - Preliminary Blood Discharge Plan Discharge Consulting providers: Casimiro Chamberlain Discharging Clinician: Rojelio Ku Anticipated Discharge Date/Time: 04/12/23 10:55 Patient Disposition: Home, Self-Care Activity: no preference Diet: heart healthy Discharge Instructions: Per Care Coordination [facility] for care home, PT/OT ([phone]) will call patient to schedule first visit. RN please fax discharge instructions to [phone]. Patient Instructions: Antibiotic Form Stand Alone Forms: General Discharge Information Follow-up/Referrals: Casimiro Chamberlain MD [Physician] - Annie,SARTHAK Wright [Primary Care Provider]
[2023-04-12] MEDS: SILVERGEL (ELTA) 45 ML 1 APPLIC TOPICAL (11:47)
== END 2023-04-12 12:10 | disposition home or self-care (01) ==
LOC: ANHED 10:51 → ANH3MED 17:18
PROVIDERS: Internal Medicine; Admitting Provider Hospitalist; Emergency Provider Emergency Medicine; PCP Registered Nurse; Visit Provider Hospitalist
DX: R41.82 Altered mental status, unspecified (principal); R18.8 Other ascites; S31.109A Unspecified open wound of abdominal wall, unspecified quadrant without penetration into peritoneal cavity, initial encounter; L02.211 Cutaneous abscess of abdominal wall; Y83.8 Other surgical procedures as the cause of abnormal reaction of the patient, or of later complication, without mention of misadventure at the time of the procedure; Z98.890 Other specified postprocedural states; Z87.19 Personal history of other diseases of the digestive system; I48.91 Unspecified atrial fibrillation; I50.9 Heart failure, unspecified; G89.29 Other chronic pain; M54.9 Dorsalgia, unspecified; E05.90 Thyrotoxicosis, unspecified without thyrotoxic crisis or storm; J44.9 Chronic obstructive pulmonary disease, unspecified; F32.A Depression, unspecified; I10 Essential (primary) hypertension; D50.9 Iron deficiency anemia, unspecified; G62.9 Polyneuropathy, unspecified; N32.81 Overactive bladder; F17.210 Nicotine dependence, cigarettes, uncomplicated; F10.90 Alcohol use, unspecified, uncomplicated; Z79.51 Long term (current) use of inhaled steroids; Z79.891 Long term (current) use of opiate analgesic; Z79.899 Other long term (current) drug therapy; Z82.49 Family history of ischemic heart disease and other diseases of the circulatory system
CPT/HCPCS: 36415; 36600; 70450; 71045; 74177; 80053; 80307; 81003; 82140; 82375; 82607; 82746; 82805; 83050; 84439; 84443; 84480; 85025; 85610; 85730; 87040; 87070; 87205; 93005; 94640; 96361; 96365; 96375; 96376; 99285; A9270; G0378; J2060; J2543; J7030; Q9967

== ENCOUNTER 2023-04-22 10:04 | Observation (INO) | payer MEDICARE, SELFPAY ==
[2023-04-22] VITALS (13 sets, daily range): BP systolic 160–205; BP diastolic 77–88; PULSE 63–122; RESP 14–21; TEMP 36.3; O2SAT 93–100; BMI 14.1
--- NOTE | ~2023-04-22 | CT_ITS ---
EXAMINATION: CT brain wo con DATE: 04/22/2023 12:26 INDICATION: Altered level of consciousness. TECHNIQUE: Computed tomography (CT) of the head was performed without intravenous contrast. The mA wa s adjusted according to patient size. Iterative reconstruction technique was employed. The dose-lengt h product was 605.33 mGy-cm. COMPARISON: Head CT 04/09/2023 FINDINGS: There is no intracranial hemorrhage, acute infarction, or abnormal intracranial mass lesion . There are scattered areas of low attenuation in the cerebral white matter. The ventricles are marly l in size. There is mild mucosal thickening in sphenoid sinus. There are likely changes of ocular katya s replacement surgeries. The mastoid air cells are normal. IMPRESSION: 1. Stable mild nonspecific cerebral white matter disease, which likely represents chronic small vesse l ischemic disease. Reviewed, dictated and finalized at location A. IMPRESSION: 1. Stable mild nonspecific cerebral white matter disease, which likely represen ts chronic small vessel ischemic disease.
--- NOTE | ~2023-04-22 | US_ITS ---
EXAMINATION: US carotid duplex BI DATE: 04/23/2023 13:23 INDICATION: Carotid bruits. TECHNIQUE: Grayscale, color Doppler, and pulsed Doppler images of the cervical carotid arteries were obtained. The degree of vessel stenosis is placed in one of the following categories: normal, <50%, 5 0-69%, >=70% but less than near-occlusion, near-occlusion, or total occlusion. Note that percent sten osis relative to normal distal artery lumen diameter is indirectly measured from velocity measurement s as described by Charbel, et al. Radiology 2003; 229:340-346. COMPARISON: None. FINDINGS: RIGHT: The right common carotid artery (CCA) peak systolic velocity (PSV) is 49 cm/s. The right internal car otid artery (ICA) PSV is 75 cm/s. The right ICA end-diastolic velocity (EDV) is 15 cm/s. The right IC A/CCA PSV ratio is 1.5. Grayscale and color Doppler images yield an estimate of <50% diameter reducti on from plaque in the ICA. There is antegrade flow in the right vertebral artery. LEFT: The left CCA PSV is 66 cm/s. The left ICA PSV is 91 cm/s. The left ICA EDV is 21 cm/s. The left ICA/C CA PSV ratio is 1.4. Grayscale and color Doppler images yield an estimate of <50% diameter reduction from plaque in the ICA. There is antegrade flow in the left vertebral artery. IMPRESSION: 1. <50% stenosis in the right internal carotid artery. 2. <50% stenosis in the left internal carotid artery. Reviewed, dictated and finalized at location A.
--- NOTE | ~2023-04-22 | MR_ITS ---
MRI of the brain Clinical History: Confusion Technique: Axial and sagittal T1-weighted images were acquired. These were followed by axial T2-weigh racquel, diffusion weighted, gradient, and FLAIR images. Findings: There is no acute intracranial hemorrhage, acute infarct, or mass lesion. There are mild to moderate chronic microvascular ischemic changes in the periventricular white matter and rissa. Ventricles and subarachnoid spaces are mildly dilated. Orbits are unremarkable. Paranasal sinuses and mastoid air cells are clear. Major intracranial flow voids appear intact. Sagittal images demonstrate advanced degenerative spondylosis in the visualized upper cervical spine, with 5 mm anterolisthesis of C3 over C4, and additional 4 mm anterolisthesis of C4 over C5. IMPRESSION: No intracranial hemorrhage, mass lesion, or acute infarct. Moderate chronic microvascular ischemic changes and mild generalized atrophy. Advanced degenerative spondylosis of the visualized cervical spine, with 5 mm anterolisthesis of C3 o nimco C4, and 4 mm anterolisthesis of C4 over C5. Dedicated cervical spine MR can be performed to furth er evaluate for degenerative spondylitic changes, if clinically indicated. Reviewed, dictated and finalized at [facility]. IMPRESSION: No intracranial hemorrhage, mass lesion, or acute infarct. Moderate chronic microvascular ischemic changes and mild generalized atrophy. Advanced degenerative spondylosis of the visualized cervical spine, with 5 mm a nterolisthesis of C3 over C4, and 4 mm anterolisthesis of C4 over C5. Dedicated cervical spine MR can be performed to further evaluate for degenerative spondy litic changes, if clinically indicated.
--- NOTE | 2023-04-22 10:09 | ECG_ITS ---
Measurements Intervals [place] Rate: 68 P: 95 AL: 160 QRS: 77 QRSD: 90 T: 28 QT: 407 QTc: 433 Interpretive Statements SINUS RHYTHM CANNOT RULE OUT SEPTAL INFARCT, AGE INDETERMINATE BORDERLINE ST-T WAVE ABNORMALITY- ANT/INF LEADS BASELINE ARTIFACT- I, II, III, AVR, AVL, AVF, V2 ABNORMAL ECG COMPARED TO ECG 04/09/2023 11:02:44 NO SIGNIFICANT CHANGES Electronically Signed On 04-22-2023 10:36:20 CDT by Michael Cannon D.O.
[2023-04-22 10:40] LABS: Basophils Percent Auto 0.4 % (0.2-1.2); Eosinophils Absolute Auto 0.1 K/mm3 (0-0.3); Hematocrit 37.3 % (37.0-47.0); Hemoglobin 11.8 g/dL (12.0-15.0); Immature Granulocyte Absolute 0.03 K/mm3 (0.00-0.031); Immature Granulocyte Percent A 0.4 % (0-0.5); Lymphocytes Absolute Auto 1.19 K/mm3 (0.9-3.2); Lymphocytes Percent Auto 17.8 % (18.3-44.2); Mean Corpuscular HGB Conc 31.6 g/dl (32-36); Mean Corpuscular Hemoglobin 27.3 pg (26-34); Mean Corpuscular Volume 86.1 fl (80-100); Mean Platelet Volume 11.8 fl (7.4-10.4); Monocytes Absolute Auto 0.3 K/mm3 (0.1-0.6); Monocytes Percent Auto 5.1 % (2.6-8.5); Neutrophils Percent Auto 75.3 % (45.5-73.1); Platelet Count Result 317 k/mm3 (150-375); Red Blood Count 4.33 M/mm3 (4.2-5.4); Red Cell Distribution Width 19.5 % (11.5-14.5); White Blood Count 6.7 K/mm3 (4.5-10.0)
[2023-04-22 10:45] LABS: Appearance Urine Clear (Clear); Bacteria Urine None Seen /hpf; Bilirubin Urine Negative (Negative); Blood Urine Negative (Negative); Color Urine Yellow (Yellow); Glucose Urine UA Negative (Negative); Ketones Urine 1+ mg/dL (Negative); Leukocyte Esterase Ur Negative LEU/UL (Negative); Nitrate Urine Negative (Negative); Non Pathogenic Casts 0-2; Protein Urine Trace mg/dL (Negative); RBC Urine 0-2 /hpf (0-2); Specific Grav Ur 1.014 (1.001-1.035); Squamous Epithelial Cell Urine None seen /hpf (Few); Urobilinogen Urine 0.2 mg/dL (<2.0); WBC Urine 0-5 /hpf; pH Urine 5.5 (5.0-9.0)
[2023-04-22 10:49] LABS: Add Urine Microscopic? YES
[2023-04-22 10:50] LABS: Alanine Aminotransferase 18 U/L (6-35); Albumin Level 4.4 g/dL (3.5-5.1); Alkaline Phosphatase 100 U/L (38-126); Anion Gap 11 mmol/L (8-16); Aspartate Amino Transferase 26 U/L (14-36); Bilirubin,Total 0.6 mg/dL (0.2-1.3); Blood Urea Nitrogen 24 mg/dL (7-17); Calcium 9.5 mg/dL (8.4-10.2); Carbon Dioxide 22 mmol/L (22-30); Chloride 109 mmol/L (98-107); Estimated CRCL calculation 42 ml/min; Estimated Glomerular Filt Rate > 60; Glucose 94 mg/dL (65-110); Potassium 3.6 mmol/L (3.4-5.0); Sodium 142 mmol/L (137-145)
[2023-04-22 10:52] LABS: INR 1.1; Prothrombin Time 14.3 Seconds (11.1-14.7)
[2023-04-22 10:53] LABS: Partial Thromboplastin Time 29.1 SECONDS (22.3-36.8)
[2023-04-22 11:12] LABS: Lactic Acid Reflex 0.5 mmol/L (0.7-2.0)
--- NOTE | 2023-04-22 13:51 | ED.AMS ---
HPI - Altered Mental Status General Chief Complaint: Altered Mental Status Stated Complaint: AMS Time Seen by Provider: 04/22/23 10:20 Source: family Mode of arrival: EMS History of Present Illness HPI narrative: 67-year-old with COPD and on 2 L home oxygen, chronic opioid use, Carmen was brought in from home with complaints patient has been acting differently since last night. states that her behavior changed all of a sudden last night she would not wear her oxygen however she did receive her night narcotics and has been sleeping all morning and was hard to wake her up. Upon arrival to the ER patient does respond to verbal stimuli denied having pain anywhere. He also mentioned that he was unable to change the dressing on her abdomen this morning. No history of fever or chills, nausea or vomiting or abdominal pain. Related Data Home Medications Medication Instructions Recorded Confirmed sertraline 100 mg tablet 100 mg PO QAM 08/27/22 04/09/23 furosemide 20 mg tablet 20 mg PO DAILY 03/18/23 04/09/23 multivitamin with minerals-folic 1 tablet PO DAILY 03/18/23 04/09/23 acid 0.4 mg tablet oxybutynin chloride 5 mg 5 mg PO QAM 03/18/23 04/09/23 tablet,extended release 24 hr oxycodone 10 mg tablet 10 mg PO TID PRN Pain 03/18/23 04/09/23 umeclidinium 62.5 mcg-vilanterol 1 inh inhalation QAM 03/18/23 04/09/23 25 mcg/actuation powdr for inhalation (Anoro Ellipta) Allergies Allergy/AdvReac Type Severity Reaction Status Date / Time atorvastatin Allergy Itching Verified 04/09/23 18:33 codeine Allergy Hives Verified 04/09/23 18:33 vancomycin Allergy Rash Verified 04/09/23 18:33 Cephalosporins AdvReac Diarrhea Verified 04/09/23 18:33 Review of Systems Constitutional: Constitutional: Reports no additional constitutional complaints Cardiovascular: Cardiovascular: Reports no additional cardiovascular complaints Respiratory: Respiratory: Reports no additional respiratory complaints Gastrointestinal: Gastrointestinal: Reports no additional gastrointestinal complaints Musculoskeletal: Musculoskeletal: Reports no additional musculoskeletal complaints Integumentary/Breasts: Skin/Breast: Reports as per HPI Neurologic: Reports as per HPI Psychiatric: Psychiatric: Reports no additional psychiatric complaints PMFSH Past Medical History Medical History Atrial fibrillation CHF (congestive heart failure), NYHA class I Chronic back pain Chronic, continuous use of opioids COPD (chronic obstructive pulmonary disease) Depression Foot drop Hypertension Iron deficiency anemia Neuropathy Overactive bladder Personal history of nicotine dependence Surgical History Surgical History H/O tubal ligation tubal repair after a tubal H/O umbilical hernia repair History of appendectomy History of foot surgery History of incisional hernia repair History of laparoscopic cholecystectomy 12/01/2022 - laparoscopic cholecystectomy with repair bile duct injury, placement T-tube, T-tube cholangiogram History of spinal fusion Family History Family History Other Heart disease Hypertension Social History Social History Social History: Current smoker around 5 cigarettes per day. She has smoked since age 19yo - up to 0.75 or 1ppd for many years. In 2018 she cut down to 0.5ppd and in December she cut down to 5 cigarettes per day now. She reports drinking about 6 beers per week. Denies marijuana or illicit substance use. 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 She lives at home with her and 2 children. Code status full code Smoking packs per day: 0.25 Smoking cigarett
--- NOTE | 2023-04-22 15:25 | PC.NURSE ---
patient is not cooperative. refuses to answer any questions or wear pulse ox or oxygen. was able to spot check SpO2 while on room air, sats maintaining in upper 90s. Pulled IV out
--- NOTE | 2023-04-22 16:45 | PC.NURSE ---
Dinner tray ordered for pt.
--- NOTE | 2023-04-22 18:33 | PC.NURSE ---
Patient refusing to let RN perform assessment. Patient refusing to wear monitor and storage bin tender. Patient did however allow tech to obtain vital signs.
--- NOTE | 2023-04-22 18:34 | PC.NURSE ---
All admission questions answered by who is at bedside with patient.
--- NOTE | 2023-04-22 18:37 | PC.NURSE ---
This patient, Chantal Grove, was admitted to Medical Room 345-. Patient/family oriented to hospital policies and general routines including ID bracelet, bed and alarms, visiting hours, pain management, procedures, bathroom and other care routines, personal items, smoking policy, room service/diet, and visiting hours. Information on how to activate the Rapid Response Team has been discussed. Patient/Family are encouraged to report perceived risks to care and to ask questions if they do not understand what they are told or what they should do.
[2023-04-22] MEDS: ALBUTEROL SULFATE NEB 2.5 MG/3 ML INH INHALATION (20:33)
[2023-04-22] MEDS: IPRATROPIUM BR 0.02% INH SOLN 0.5 MG/2.5 ML VIAL INHALATION (20:34)
--- NOTE | 2023-04-22 21:40 | PM.IMHP ---
H&P: HPI History of Present Illness Date/Time: 04/22/23 14:00 Chief Complaint: Altered mental status. Narrative: This is a 67-year-old female smoker with heart failure with reduced ejection fraction, peripheral vascular disease, paroxysmal atrial fibrillation, hypertension, chronic obstructive pulmonary disease, and chronic back pain on long-term opiate therapy who presented to the emergency department via EMS from home for evaluation of altered mental status. She does not provide much in the way of history and most of the following is obtained via a review of her EMR as well as discussions with her who is at bedside. The patient is known to the hospitalist service and has been admitted to us several times this year. She had a lengthy stay in December with sepsis and cholelithiasis status post cholecystectomy complicated by bile duct injury. She had some episodes of confusion during that stay but was discharged home at her baseline. She was readmitted at the end of December with new onset congestive heart failure with reduced ejection fraction (LVEF of 45 to 50%, some regional wall motion abnormalities, mild aortic stenosis and severe aortic valve calcification, and small PFO). I do not see that she has had an ischemic workup as of yet. She was hospitalized for nearly 2 weeks at the end of March into early March following an open repair of an epigastric incisional hernia which required of subsequent surgery for incision and drainage. She was ultimately admitted to the ICU with sepsis and it sounds as though she had some issues with confusion while in the ICU as well. She was weak on discharged on 04/04/2023 and was reportedly not back to her baseline mentation. It looks like she was seen emergency department a couple of times since with altered mental status and she was hospitalized a few days last week for the same. It was thought that her confusion may very well be related to polypharmacy and her long-acting oxycodone was discontinued and she was continued on her p.r.n. oxycodone both which she has taken for well over a decade. She also was a bit dehydrated and she seemed to improve with IV fluids. reports that she has been doing pretty well since that time however over the last 3 days ?it was like something just switched? and she has become withdrawn and less interactive. She has not been eating much, has been sleeping a majority of the day, and she has had several falls. states that they typically occur while she is standing and she ?goes down like a tree.? Luckily she has not sustained any significant injuries and does not believe that she had any loss of consciousness. He does not describe seizure-like activity however he does report that she tends to have a blank stare on occasion. She does not allow her to mess with her medications and today he noticed that 5 or 6 oxycodone were missing and he presume she took an extra dose or two each day the last 2 to 3 days. She has not had fever and she denies headache, neck ache, cold and flu symptoms, chest pain, shortness a breath, nausea, vomiting, diarrhea, and dysuria. believes that she is depressed however she denies this to me. She has not exhibited any signs of altered mental status prior to her hospitalizations this year. Her parents both at relatively young ages (mom passed from a cerebral aneurysm and her father at age 61 with cardiovascular disease) and there is no family history of dementia. In the ER today her blood pressures have been running high, mainly in the 160s to 170s systolic but it was 205/88 on arrival to the ED. this is much higher than what she typically runs. CMP and CBC were really unremarkable. Urine showed 1+ ketones. Brain CT showed stable mild nonspecific cerebral white matter disease which likely represents chronic small-vessel ischemic disease. Given her change in mentation she is being admitted for close monitoring and neurology consultation. Mary Jo
[2023-04-23] VITALS (17 sets, daily range): BP systolic 156–164; BP diastolic 71–83; PULSE 72–109; RESP 16–20; TEMP 36.5–36.7; O2SAT 94–97; BMI 15.0
[2023-04-23] MEDS: IPRATROPIUM BR 0.02% INH SOLN 0.5 MG/2.5 ML VIAL INHALATION ×4 (01:55→20:06)
[2023-04-23] MEDS: ALBUTEROL SULFATE NEB 2.5 MG/3 ML INH INHALATION ×4 (01:55→20:06)
[2023-04-23 04:46] LABS: Alveolar/Arterial O2 Gradient 101.3 mmHg; Base Excess ABG -6.4 mEq/l (+/-2.0); Fractional Inspired Oxygen 28 %; HCO3 ABG 16.1 mEq/l (22.0-26.0); Methemoglobin ABG 0.3 %THb (0-1.5); Oxygen Content ABG 16.2 %vol (16.0-22.0); Oxygen Saturation ABG 94.9 % (95.0-100.0); PCO2 ABG 24.4 mmHg (35.0-45.0); PO2 ABG 69.6 mmHg (80.0-100.0); PO2 FiO2 Ratio Arterial Blood 2.49 %; Reduced Hemoglobin 6.7 %THb (0-5.0); Total Hemoglobin 12.4 g/dL (12.0-18.0); pH ABG 7.438 (7.350-7.450)
[2023-04-23 05:57] LABS: Hematocrit 35.9 % (37.0-47.0); Hemoglobin 11.4 g/dL (12.0-15.0); Mean Corpuscular HGB Conc 31.8 g/dl (32-36); Mean Corpuscular Hemoglobin 27.1 pg (26-34); Mean Corpuscular Volume 85.5 fl (80-100); Mean Platelet Volume 11.4 fl (7.4-10.4); Platelet Count Result 283 k/mm3 (150-375); Red Cell Distribution Width 18.8 % (11.5-14.5); White Blood Count 8.4 K/mm3 (4.5-10.0)
[2023-04-23 06:05] LABS: Anion Gap 13 mmol/L (8-16); Blood Urea Nitrogen 18 mg/dL (7-17); Calcium 9.1 mg/dL (8.4-10.2); Carbon Dioxide 22 mmol/L (22-30); Chloride 105 mmol/L (98-107); Estimated CRCL calculation 39 ml/min; Estimated Glomerular Filt Rate > 60; Glucose 94 mg/dL (65-110); Magnesium 1.5 mg/dL (1.6-2.3); Potassium 3.3 mmol/L (3.4-5.0); Sodium 140 mmol/L (137-145)
[2023-04-23 06:11] LABS: Ammonia < 9 umol/L (9-30)
[2023-04-23 07:26] LABS: Thyroid Stimulating Hormone Reflex 0.319 uIU/mL (0.465-4.68)
[2023-04-23 08:03] LABS: Free T4 Free Thyroxine Reflex 0.93 ng/dL (0.78-2.19)
[2023-04-23 08:51] LABS: Total Triiodothyronine (T3) 0.76 NG/ML (0.97-1.69)
[2023-04-23] MEDS: MAGNESIUM SULF 2 GM/WATER 50ML 2 GM/50 ML BAG IVPB (09:12)
[2023-04-23] MEDS: SODIUM CHLORIDE 0.9% IV 1,000 ML 75 ML IV CONT (09:12)
--- NOTE | 2023-04-23 09:40 | PC.NURSE ---
Patient refusing to wear oxygen at this time.
--- NOTE | 2023-04-23 09:53 | WPDNEURCNPN ---
Assessment and Plan Assessment and plan (1) Altered mental status: Qualifiers: Altered mental status type: unspecified Qualified Code(s): R41.82 - Altered mental status, unspecified Code(s): R41.82 - Altered mental status, unspecified Status: Acute (2) Hypertensive encephalopathy: Code(s): I67.4 - Hypertensive encephalopathy Status: Acute (3) Opioid use: Code(s): F11.90 - Opioid use, unspecified, uncomplicated Status: Acute Plan Chantal Grove is a 67 year old female with a history of atrial fibrillation, COPD, chronic opioid use, peripheral arterial disease presenting for altered mental status. Seems like polypharmacy and hypertensive encephalopathy are likely contributing factors. - Can obtain MRI brain and routine EEG Consult date: 04/23/23 Reason for consult: Altered mental status HPI: Chantal Grove is a 67 year old female with a history of atrial fibrillation, COPD, chronic opioid use, peripheral arterial disease presenting for altered mental status. Patient has had multiple admission over the past six months. She was admitted in December 2022 for sepsis and cholelithiasis s/p cholecystectomy. She did have episodes of confusion during that admission. MRI brain was done which only showed small vessel disease. She was reportedly at baseline at the time of discharge. She had another admission in March-March 2023 due to repair of epigastric incisional hernia, complicated by sepsis, requiring ICU admission. She was encephalopathic during that admission as well, and was not back to baseline mental status at the time of discharge. She was admitted again last week due to altered mental status, thought to be due to polypharmacy (patient taking PRN oxycodone). Per , patient had been doing fairly well since she was discharged, however over the past few days, she became more withdrawn, hasn't been eating as much, and been sleeping majority of the day. She has also has several episodes where she will fall suddenly. denies any seizure-like activity with the falls, but at times she will staring off on occasion. On the day of presentation, noted that 5-6 oxycodone were missing and he suspects that she may have taken an extra dose or two each day on the days leading up to admission. Patient was taken to the ED where her blood pressure was up to 205/88. Lab work was unremarkable. Urine drug screen is pending. CT head was negative for acute process. Review of Systems Constitutional: Constitutional: Reports no additional constitutional complaints Eyes: Eyes: Reports no additional eye complaints ENT: Reports system reviewed and no additional complaints, except as documented Cardiovascular: Cardiovascular: Reports no additional cardiovascular complaints Respiratory: Respiratory: Reports no additional respiratory complaints Gastrointestinal: Gastrointestinal: Reports abdominal pain Genitourinary: Genitourinary: Reports hematuria Musculoskeletal: Musculoskeletal: Reports no additional musculoskeletal complaints Integumentary/Breasts: Skin/Breast: Reports system reviewed and no additional complaints, except as docu Neurologic: Reports as per HPI Psychiatric: Psychiatric: Reports no additional psychiatric complaints and Reports confusion PMFSH Past Medical History Medical History Atrial fibrillation Chronic back pain Chronic obstructive pulmonary disease Chronic use of opiate for therapeutic purpose Depression Foot drop Heart failure with reduced ejection fraction Hypertension Iron deficiency anemia Neuropathy Overactive bladder Peripheral artery disease (12/2022) Moderately decreased right MAGDIEL and severely decreased left MAGDIEL. Tobacco dependence Surgical History Surgical History History of appendectomy History of foot surgery History of incisional hernia repair
--- NOTE | 2023-04-23 12:33 | PC.NURSE ---
Reconciled medications with patients Dc via phone call.
--- NOTE | 2023-04-23 12:37 | PC.NURSE ---
Patient off of unit to ultrasound
--- NOTE | 2023-04-23 13:25 | PC.NURSE ---
Patient returned to unit from ultrasound
[2023-04-23] MEDS: POTASSIUM CHLORIDE 20 MEQ TABLET 40 MEQ PO (13:49)
--- NOTE | 2023-04-23 16:35 | PM.IMPN ---
Progress Note: A&P Assessment and Plan (1) Altered mental status: Qualifiers: Altered mental status type: unspecified Qualified Code(s): R41.82 - Altered mental status, unspecified Code(s): R41.82 - Altered mental status, unspecified Status: Acute Assessment and Plan: She has had periods of confusion with her hospitalizations this year and has been seen in the ER couple of times for similar episodes where she seems to suddenly act different and become withdrawn and less interactive. It sounds as though she experienced some delirium with her hospitalizations as well. Earlier this month she was hospitalized with confusion and it was thought to be related to a combination of dehydration and polypharmacy. OxyContin was discontinued and she was continued on p.r.n. oxycodone of which the patient's believe she has been taking additional doses the last several days. Brain CT was unremarkable. No evidence to suggest infection at this time. Blood pressures have been running higher than baseline but doubt hypertensive encephalopathy. Consider early-onset vascular dementia. Consider seizures given her falls. B12 normal. Ammonia levels negative. TSH low but FT4 normal. Urine drug screen negative. Carotid Doppler ultrasounds showing <50% stenosis bilaterally. Order EEG and MRI. Neurology has been consulted and appreciate their input. (2) Mild dehydration: Code(s): E86.0 - Dehydration Status: Acute Assessment and Plan: She was rehydrated. Stop IV fluids. Hold Lasix (3) Chronic use of opiate for therapeutic purpose: Code(s): Z79.891 - correction (current) use of opiate analgesic Status: Acute Assessment and Plan: Hold oxycodone 10 mg as needed t.i.d. for now (4) Heart failure with reduced ejection fraction: Code(s): I50.20 - Unspecified systolic (congestive) heart failure Status: Acute Assessment and Plan: Clinically compensated. Monitor volume status closely. Resume home meds (5) Hypertension: Qualifiers: Hypertension type: primary hypertension Qualified Code(s): I10 - Essential (primary) hypertension Code(s): I10 - Essential (primary) hypertension Status: Chronic Assessment and Plan: Patient's blood pressure was reviewed on 04/22 Blood pressure remains elevated Will resume current medications. (6) Chronic obstructive pulmonary disease: Code(s): J44.9 - Chronic obstructive pulmonary disease, unspecified Status: Acute Assessment and Plan: No acute exacerbation. Continue inhalers. (7) Tobacco dependence: Code(s): F17.200 - Nicotine dependence, unspecified, uncomplicated Status: Acute Assessment and Plan: Smoking cessation is encouraged. Subjective Date/time seen: 04/23/23 16:35 Interval history: 67yo female smoker with heart failure with reduced ejection fraction, peripheral vascular disease, paroxysmal atrial fibrillation, hypertension, chronic obstructive pulmonary disease, and chronic back pain on long-term opiate therapy who presented to the emergency department via EMS from home for evaluation of altered mental status.? Assuming care. Chart reviewed. Problems overnight. No shortness a breath. No cough. Has pleuritic and palpable chest pain. Exam Narrative: AF 98.1 156/71 78 18 97% ra Gen - NARD Chest - clear anteriorly and in the flanks. palpable central chest wall pain CV - RRR S1/S2. Tele showing episode of probably atrial tachycardia Abd - Soft, NT/ND, Positive BS. dried eschar noted mid abdomen without drainage Ext - No pedal edema Neuro - Alert and oriented 3 and perseverates at times. 4/5 dorsiflexion. Psych - Nml mood and affect Skin - Warm and dry Objective Data Vital Signs Vital Signs: Vital Signs - 24 hr 04/22/23 16:50 04/22/23 17:54 04/22/23 19:55 Temperature 97.4 F L Pulse Rate 74 63 82 Respir
[2023-04-23] MEDS: PREGABALIN (*CRX) 50 MG CAPSULE 100 MG PO (20:42)
[2023-04-23] MEDS: SACUBITRIL/VALSARTAN 24-26 MG TABLET 1 TAB PO (20:42)
[2023-04-24] VITALS (13 sets, daily range): BP systolic 122–138; BP diastolic 64–66; PULSE 79–108; RESP 16–18; TEMP 36.1–36.4; O2SAT 95–97
[2023-04-24] MEDS: IPRATROPIUM BR 0.02% INH SOLN 0.5 MG/2.5 ML VIAL INHALATION ×2 (02:51→13:21)
[2023-04-24] MEDS: ALBUTEROL SULFATE NEB 2.5 MG/3 ML INH INHALATION ×2 (02:51→13:21)
[2023-04-24 05:51] LABS: Basophils Absolute Auto 0.1 K/mm3 (0.0-0.1); Basophils Percent Auto 0.6 % (0.2-1.2); Eosinophils Absolute Auto 0.2 K/mm3 (0-0.3); Eosinophils Percent Auto 2.4 % (0-4.4); Hemoglobin 11.2 g/dL (12.0-15.0); Immature Granulocyte Absolute 0.03 K/mm3 (0.00-0.031); Immature Granulocyte Percent A 0.4 % (0-0.5); Lymphocytes Absolute Auto 2.08 K/mm3 (0.9-3.2); Lymphocytes Percent Auto 26.3 % (18.3-44.2); Mean Corpuscular Hemoglobin 27.5 pg (26-34); Mean Corpuscular Volume 85.8 fl (80-100); Mean Platelet Volume 11.8 fl (7.4-10.4); Monocytes Absolute Auto 0.7 K/mm3 (0.1-0.6); Monocytes Percent Auto 8.8 % (2.6-8.5); Neutrophils Absolute Auto 4.9 K/mm3 (1.3-6.7); Neutrophils Percent Auto 61.5 % (45.5-73.1); Platelet Count Result 269 k/mm3 (150-375); Red Blood Count 4.08 M/mm3 (4.2-5.4); Red Cell Distribution Width 19.4 % (11.5-14.5); White Blood Count 7.9 K/mm3 (4.5-10.0)
[2023-04-24 06:09] LABS: Alanine Aminotransferase 15 U/L (6-35); Albumin Level 3.7 g/dL (3.5-5.1); Alkaline Phosphatase 88 U/L (38-126); Anion Gap 9 mmol/L (8-16); Aspartate Amino Transferase 22 U/L (14-36); Bilirubin,Total 0.4 mg/dL (0.2-1.3); Blood Urea Nitrogen 16 mg/dL (7-17); Calcium 8.6 mg/dL (8.4-10.2); Carbon Dioxide 22 mmol/L (22-30); Chloride 110 mmol/L (98-107); Estimated CRCL calculation 41 ml/min; Estimated Glomerular Filt Rate > 60; Glucose 102 mg/dL (65-110); Potassium 4.1 mmol/L (3.4-5.0); Sodium 141 mmol/L (137-145)
[2023-04-24] MEDS: POTASSIUM CHLORIDE 20 MEQ TABLET.ER PO (08:24)
[2023-04-24] MEDS: METOPROLOL SUCCINATE EXT REL 100 MG TABCR PO (08:24)
[2023-04-24] MEDS: SACUBITRIL/VALSARTAN 24-26 MG TABLET 1 TAB PO (08:25)
[2023-04-24] MEDS: oxyBUTYnin CHLORIDE XL 5 MG TAB.ER.24 PO (08:25)
[2023-04-24] MEDS: SERTRALINE HCL 50 MG TABLET 100 MG PO (08:25)
[2023-04-24] MEDS: PREGABALIN (*CRX) 50 MG CAPSULE 100 MG PO (08:25)
[2023-04-24 08:34] LABS: Device NASAL CANNULA
--- NOTE | 2023-04-24 16:35 | PCPTNOTE ---
On 04/24/23, the student, [Cintia Flynn], provided care and completed [facility] documentation on this patient. I have reviewed the student's documentation and agree with the findings.
--- NOTE | 2023-04-24 18:05 | PM.DS ---
DS: Admitting Diagnosis Discharge Date 04/24/23 Admitting Diagnosis Altered mental status DS: Discharge Diagnosis Discharge Diagnosis (1) Altered mental status: Qualifiers: Altered mental status type: unspecified Qualified Code(s): R41.82 - Altered mental status, unspecified Code(s): R41.82 - Altered mental status, unspecified Status: Acute (2) Mild dehydration: Code(s): E86.0 - Dehydration Status: Acute (3) Chronic use of opiate for therapeutic purpose: Code(s): Z79.891 - intermediate card tender (current) use of opiate analgesic Status: Acute (4) Heart failure with reduced ejection fraction: Code(s): I50.20 - Unspecified systolic (congestive) heart failure Status: Acute (5) Hypertension: Qualifiers: Hypertension type: primary hypertension Qualified Code(s): I10 - Essential (primary) hypertension Code(s): I10 - Essential (primary) hypertension Status: Chronic (6) Chronic obstructive pulmonary disease: Code(s): J44.9 - Chronic obstructive pulmonary disease, unspecified Status: Acute (7) Tobacco dependence: Code(s): F17.200 - Nicotine dependence, unspecified, uncomplicated Status: Acute (8) Severe protein-calorie malnutrition: Code(s): E43 - Unspecified severe protein-calorie malnutrition Status: Acute DS: Summary Hospital Course Reason for hospitalization: 67yo female smoker with heart failure with reduced ejection fraction, peripheral vascular disease, paroxysmal atrial fibrillation, hypertension, chronic obstructive pulmonary disease, and chronic back pain on long-term opiate therapy who presented to the emergency department via EMS from home for evaluation of altered mental status.?Please see H&P for details. Hospital Course: Patient has had periods of confusion requiring hospitalizations this year and has been seen in the ER couple of times for similar episodes where she seems to suddenly act different and become withdrawn and less interactive. It sounds as though she experienced some delirium with her hospitalizations as well. Earlier this month she was hospitalized with confusion and it was thought to be related to a combination of dehydration and polypharmacy. OxyContin was discontinued and she was continued on p.r.n. oxycodone of which the patient's believe she has been taking additional doses the last several days. Brain CT was unremarkable. No evidence to suggest infection at this time. Blood pressures have been running higher than baseline but doubt hypertensive encephalopathy. Carotid Doppler ultrasounds showing <50% stenosis bilaterally. B12 normal. Ammonia levels negative. TSH low but FT4 normal. Urine drug screen negative. Brain MRI showing no intracranial hemorrhage, mass lesion, or acute infarct. She did have moderate chronic microvascular ischemic changes and mild generalized atrophy. An incidental finding of advanced degenerative spondylosis of the visualized cervical spine, with 5 mm anterolisthesis of C3 over C4, and 4 mm anterolisthesis of C4 over C5. Radiology recommended a dedicated cervical spine MR to further evaluate for degenerative spondylitic changes. She is not having neck pain or weakness. She did have a MRI brain in December 2022. Discussed with radiology and there is no change in the cervical spine findings. Further evaluation can be performed as outpatient if warranted. Consider early-onset vascular dementia to explain her mental status changes vs narcotic induced. Neurology consulted and EEG ordered but not able to be completed. Discussed with Neurology who felt the EEG can be put on hold. The EEG was mostly to have a background tracing and that it was felt that she was not having seizures. She was clinically dehydrated and was started on IV fluids. We held her Lasix. She has heart failure with reduced ejection fraction and appeared clinically compensated.?We resumed home meds. She t
== END 2023-04-24 19:00 | disposition home health service (06) ==
LOC: ANHED 13:55 → ANH3MED 04-23 01:43 → ANH3MEDSUR 04-25 09:15
PROVIDERS: Physician Assistant; Admitting Provider Chiropractor; Emergency Provider Family Medicine; PCP Registered Nurse; Visit Provider Internal Medicine
DX: R41.82 Altered mental status, unspecified (principal); E86.0 Dehydration; I67.4 Hypertensive encephalopathy; J44.9 Chronic obstructive pulmonary disease, unspecified; Z99.81 Dependence on supplemental oxygen; I48.91 Unspecified atrial fibrillation; I11.9 Hypertensive heart disease without heart failure; I50.20 Unspecified systolic (congestive) heart failure; G89.29 Other chronic pain; M54.9 Dorsalgia, unspecified; F32.A Depression, unspecified; D50.9 Iron deficiency anemia, unspecified; I73.9 Peripheral vascular disease, unspecified; R09.89 Other specified symptoms and signs involving the circulatory and respiratory systems; E43 Unspecified severe protein-calorie malnutrition; M47.812 Spondylosis without myelopathy or radiculopathy, cervical region; G62.9 Polyneuropathy, unspecified; N32.81 Overactive bladder; R90.82 White matter disease, unspecified; R94.31 Abnormal electrocardiogram [ECG] [EKG]; F17.210 Nicotine dependence, cigarettes, uncomplicated; F10.90 Alcohol use, unspecified, uncomplicated; Z79.891 Long term (current) use of opiate analgesic; Z79.51 Long term (current) use of inhaled steroids; Z79.899 Other long term (current) drug therapy
CPT/HCPCS: 36415; 36600; 70450; 70551; 80048; 80053; 81001; 82140; 82375; 82607; 82805; 83050; 83605; 83735; 84439; 84443; 84480; 85025; 85027; 85610; 85730; 93005; 93880; 94640; 96365; 97161; 97165; 99285; A9270; G0378; J3475; J7030

== ENCOUNTER 2023-04-29 17:21 | Inpatient (IN) | payer MEDICARE, SELFPAY ==
[2023-04-29] VITALS (12 sets, daily range): BP systolic 65–113; BP diastolic 9–64; PULSE 78–99; RESP 12–17; TEMP 36.2–36.8; O2SAT 96–100
--- NOTE | ~2023-04-29 | XR_ITS ---
EXAMINATION: XR chest 1V portable Exam Date/Time: 04/29/2023 18:35 CDT HISTORY: WEAKNESS, COUGH, ALTERED MENTAL STATUS X 1 WEEK Comparison: 04/09/2023, 08/27/2022. RESULT: Lines, tubes, and devices: Cholecystectomy clips. Lungs and pleura: Diffuse coarse interstitial changes likely chronic senescent/emphysematous change. Cardiomediastinal silhouette: Stable. Other: No acute osseous or upper abdominal finding. IMPRESSION: No acute cardiopulmonary process. Reviewed, dictated and finalized at location K.
--- NOTE | ~2023-04-29 | US_ITS ---
EXAMINATION: US renal BI DATE: 04/30/2023 12:54 INDICATION: Acute renal insufficiency TECHNIQUE: Multiple ultrasound grayscale images of the kidneys were obtained. COMPARISON: None. FINDINGS: The right kidney measures 8.9 x 4.7 x 4.6 cm. The left kidney which is suboptimally visualized due to shadowing bowel measures 7.7 x 4.0 x 4.4 cm. The kidneys demonstrate normal echogenicity. There is n o hydronephrosis in either kidney. No stones identified. The bladder is normal. IMPRESSION: 1. Normal kidneys without hydronephrosis. Reviewed, dictated and finalized at location B.
--- NOTE | 2023-04-29 17:47 | ECG_ITS ---
Measurements Intervals [place] Rate: 83 P: 55 WI: 159 QRS: 91 QRSD: 98 T: 20 QT: 351 QTc: 414 Interpretive Statements SINUS RHYTHM SUPRAVENTRICULAR BIGEMINY DELAYED PRECORDIAL R/S TRANSITION BORDERLINE ST-T WAVE ABNORMALITY- INFERIOR LEADS BASELINE ARTIFACT- V6 ABNORMAL ECG COMPARED TO ECG 04/22/2023 10:09:57 SUPRAVENTRICULAR BIGEMINY NOW PRESENT Electronically Signed On 04-29-2023 18:34:39 CDT by Michael Cannon D.O.
[2023-04-29 18:10] LABS: Basophils Percent Auto 0.3 % (0.2-1.2); Eosinophils Absolute Auto 0.2 K/mm3 (0-0.3); Eosinophils Percent Auto 1.1 % (0-4.4); Hematocrit 29.3 % (37.0-47.0); Hemoglobin 9.5 g/dL (12.0-15.0); Immature Granulocyte Absolute 0.07 K/mm3 (0.00-0.031); Immature Granulocyte Percent A 0.5 % (0-0.5); Lymphocytes Absolute Auto 1.45 K/mm3 (0.9-3.2); Lymphocytes Percent Auto 11.1 % (18.3-44.2); Mean Corpuscular HGB Conc 32.4 g/dl (32-36); Mean Corpuscular Hemoglobin 27.7 pg (26-34); Mean Corpuscular Volume 85.4 fl (80-100); Mean Platelet Volume 12.8 fl (7.4-10.4); Monocytes Absolute Auto 0.6 K/mm3 (0.1-0.6); Monocytes Percent Auto 4.3 % (2.6-8.5); Neutrophils Absolute Auto 10.8 K/mm3 (1.3-6.7); Neutrophils Percent Auto 82.7 % (45.5-73.1); Platelet Count Result 220 k/mm3 (150-375); Red Blood Count 3.43 M/mm3 (4.2-5.4); Red Cell Distribution Width 18.6 % (11.5-14.5); White Blood Count 13.1 K/mm3 (4.5-10.0)
[2023-04-29 18:20] LABS: Alanine Aminotransferase 17 U/L (6-35); Albumin Level 4.1 g/dL (3.5-5.1); Alkaline Phosphatase 97 U/L (38-126); Anion Gap 17 mmol/L (8-16); Aspartate Amino Transferase 39 U/L (14-36); Bilirubin,Total 0.6 mg/dL (0.2-1.3); Calcium 8.2 mg/dL (8.4-10.2); Carbon Dioxide 23 mmol/L (22-30); Chloride 91 mmol/L (98-107); Estimated Glomerular Filt Rate 8; Glucose 96 mg/dL (65-110); Potassium 4.7 mmol/L (3.4-5.0); Sodium 131 mmol/L (137-145)
[2023-04-29 18:21] LABS: INR 1.1; Prothrombin Time 14.7 Seconds (11.1-14.7)
[2023-04-29 18:22] LABS: Partial Thromboplastin Time 32.6 SECONDS (22.3-36.8)
[2023-04-29] MEDS: SODIUM CHLORIDE 0.9% IV 1,000 ML 999 ML IV CONT ×4 (18:38→22:52)
[2023-04-29 18:49] LABS: Appearance Urine Turbid (Clear); Bacteria Urine 4+ /hpf; Bilirubin Urine Negative (Negative); Blood Urine 1+ (Negative); Color Urine Yellow (Yellow); Glucose Urine UA Negative (Negative); Ketones Urine Negative (Negative); Leukocyte Esterase Ur 3+ LEU/UL (Negative); Need Manual Microscopic Reviewed; Nitrate Urine Negative (Negative); Protein Urine 1+ mg/dL (Negative); RBC Urine 0-2 /hpf (0-2); Specific Grav Ur 1.014 (1.001-1.035); Squamous Epithelial Cell Urine Occasional /hpf (Few); Urobilinogen Urine 0.2 mg/dL (<2.0); WBC Urine >100 /hpf
[2023-04-29 18:51] LABS: Add Urine Microscopic? YES
[2023-04-29 18:59] LABS: Blood Urea Nitrogen 122 mg/dL (7-17)
[2023-04-29 19:44] LABS: Lactic Acid Reflex 0.8 mmol/L (0.7-2.0)
--- NOTE | 2023-04-29 22:10 | ED.GENADULT ---
HPI - General Adult General Chief complaint: Altered Mental Status Stated complaint: AMS Time Seen by Provider: 04/29/23 19:03 History of Present Illness HPI narrative: Patient is a ill 67-year-old female who presents ER with altered mental status. Increasing over the last couple days. Was just discharged 5 days ago. Patient has had a complex course since developing a abdominal wall infection and requiring a wound VAC after a incisional hernia repair. Patient has been in the hospital with altered mental status and ultimately failure to thrive. Family reports decreased oral intake and over the last 48 hours recently had a cookie and 20 ounces of water. No new medications that they report. Patient found to be quite hypotensive in the 70s. Patient does take Entresto and furosemide chronically as well as metoprolol. Related Data Home Medications Medication Instructions Recorded Confirmed sertraline 100 mg tablet 100 mg PO QAM 08/27/22 04/29/23 furosemide 20 mg tablet 20 mg PO DAILY 03/18/23 04/29/23 oxybutynin chloride 5 mg 5 mg PO QAM 03/18/23 04/29/23 tablet,extended release 24 hr pregabalin 100 mg capsule 100 mg PO BID 04/23/23 04/29/23 Allergies Allergy/AdvReac Type Severity Reaction Status Date / Time atorvastatin Allergy Itching Verified 04/09/23 18:33 codeine Allergy Hives Verified 04/09/23 18:33 vancomycin Allergy Rash Verified 04/09/23 18:33 Cephalosporins AdvReac Diarrhea Verified 04/09/23 18:33 Review of Systems Review of Systems: ROS unobtainable: Yes unobtainable due to mental status [facility] Past Medical History Medical History Atrial fibrillation Chronic back pain Chronic obstructive pulmonary disease Chronic use of opiate for therapeutic purpose Depression Foot drop Heart failure with reduced ejection fraction Hypertension Iron deficiency anemia Neuropathy Overactive bladder Peripheral artery disease (12/2022) Moderately decreased right MAGDIEL and severely decreased left MAGDIEL. Tobacco dependence Surgical History Surgical History History of appendectomy History of foot surgery History of incisional hernia repair History of laparoscopic cholecystectomy (12/01/22) With repair bile duct injury and placement T-tube. History of salpingostomy Repair of to falling tubal . History of spinal fusion History of umbilical hernia repair Family History Family History Other Heart disease Hypertension Social History Social History Social History: Surrogate medical decision maker: Dc Grove, spouse. Code status: Full code. Smoking packs per day: 0.5 Smoking cigarettes per day: 10.0 Years smoked: 44 Smoking pack-years: 22.00 Smoking status: Current every day smoker Second hand tobacco smoke exposure: No Additional smoking assessment comments: Now smoking about 5 or 6 cigarettes a day. Alcohol intake: current Drinks per week: 4 Substance use: never Substance use type: does not use Lack of Transportation: No Lack of Food: Never True Current Housing: I Have Housing Concerned About Future Housing: No Difficulty Paying Gas/Electric Bills: No Difficulty Paying for Meds: No Currently Unemployed: No Education: Associate Degree Difficulty w/ Childcare or Family Care: No Living arrangements: with family Additional living arrangements comments: Lives with spouse of 30 years in [place]. 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 Spiritual care concerns: No Exam Narrative: GENERAL: Chronically ill appearing, frail, and in no acute distress. HEAD: Normocephalic, atraumatic.
--- NOTE | 2023-04-29 23:47 | PM.IMHP ---
H&P: HPI History of Present Illness Date/Time: 04/29/23 23:47 Chief Complaint: Altered mental status. Narrative: This is a 67-year-old lady with a past medical history including but not limited to chronic a infected wound, status post wound VAC, who presented to the emergency department with complaints of failure to thrive, not eating or drinking associated with altered mental status. The patient is chronically ill with recurrent admission over the last months. She currently has a DNR status. After discussion with the family they would not want a central line. Family reports decreased oral intake over the last 48 hours prior to presentation. Admission the patient is hypotensive with the following vital signs: A temperature of 97.6?, pulse rate 71, heart rate 22, pulse ox 100, blood pressure 80/40.. Her creatinine is elevated at 5.8. Her CBC shows a WBC of 13.1, hemoglobin 9.5, hematocrit 29.3 and a platelet count of 2 to 0. A chemistry shows a sodium of 131, potassium 4.7, chloride 91, bicarbonate 23, BUN to 122 and a creatinine of 5.3. In the emergency department, family refused placement of central line. The patient and her family are declining any aggressive measures. In the ED the patient received 4 L of IV fluid with only mild improvement in blood pressure. Due to acute worsening kidney function, Nephrology has been consulted. On the floor the patient blood pressure remained normal. She was given albumin infusion and started on midodrine. Family was contacted; her stated that she would not want a central line placement. He was in form of a potential risk of clinical deterioration including . Review of Systems Review of Systems: ROS unobtainable: Yes unobtainable due to medical condition [facility] Past Medical History Medical History Atrial fibrillation Chronic back pain Chronic obstructive pulmonary disease Chronic use of opiate for therapeutic purpose Depression Foot drop Heart failure with reduced ejection fraction Hypertension Iron deficiency anemia Neuropathy Overactive bladder Peripheral artery disease (12/2022) Moderately decreased right MAGDIEL and severely decreased left MAGDIEL. Tobacco dependence Surgical History Surgical History History of appendectomy History of foot surgery History of incisional hernia repair History of laparoscopic cholecystectomy (12/01/22) With repair bile duct injury and placement T-tube. History of salpingostomy Repair of to falling tubal . History of spinal fusion History of umbilical hernia repair Family History Family History Other Heart disease Hypertension Social History Social History Social History: Surrogate medical decision maker: Dc Grove, spouse. Code status: Full code. Smoking packs per day: 0.5 Smoking cigarettes per day: 10.0 Years smoked: 44 Smoking pack-years: 22.00 Smoking status: Current every day smoker Second hand tobacco smoke exposure: No Additional smoking assessment comments: Now smoking about 5 or 6 cigarettes a day. Alcohol intake: current Drinks per week: 4 Substance use: never Substance use type: does not use Lack of Transportation: No Lack of Food: Never True Current Housing: I Have Housing Concerned About Future Housing: No Difficulty Paying Gas/Electric Bills: No Difficulty Paying for Meds: No Currently Unemployed: No Education: Associate Degree Difficulty w/ Childcare or Family Care: No Living arrangements: with family Additional living arrangements comments: Lives with spouse of 30 years in [place]. 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
[2023-04-29] MEDS: ACETAMINOPHEN 325 MG TABLET 650 MG PO (23:58)
[2023-04-30] VITALS (15 sets, daily range): BP systolic 74–134; BP diastolic 33–74; PULSE 63–83; RESP 18–22; TEMP 36.1–36.9; O2SAT 93–100
--- NOTE | 2023-04-30 00:08 | ADMGEN ---
This patient, Chantal Grove, was admitted to IMU Room 205-01. Patient/family oriented to hospital policies and general routines including ID bracelet, bed and alarms, visiting hours, pain management, procedures, bathroom and other care routines, personal items, smoking policy, room service/diet, and visiting hours. Information on how to activate the Rapid Response Team has been discussed. Patient/Family are encouraged to report perceived risks to care and to ask questions if they do not understand what they are told or what they should do.
[2023-04-30] MEDS: LACTATED RINGERS 1,000 ML 125 ML IV CONT ×3 (00:33→17:11)
[2023-04-30] MEDS: LACTATED RINGERS 500 ML 999 ML IV CONT (04:27)
[2023-04-30] MEDS: ALBUMIN HUMAN 25% 25 GM/100 ML 100 ML IVPB (05:50)
--- NOTE | 2023-04-30 06:12 | PC.NURSE ---
[place] monitor performed-pt 24.2% fluid responsive
[2023-04-30] MEDS: MIDODRINE HCL 10 MG TABLET PO ×3 (06:40→17:10)
[2023-04-30] MEDS: LACTATED RINGERS 150 ML 999 ML IV CONT (06:45)
[2023-04-30] MEDS: ALBUMIN HUMAN 5% 25 GM/500 ML BTL IV CONT (06:48)
[2023-04-30 10:53] LABS: Hemoglobin 8.1 g/dL (12.0-15.0); Mean Corpuscular HGB Conc 31.2 g/dl (32-36); Mean Corpuscular Hemoglobin 27.5 pg (26-34); Mean Corpuscular Volume 88.1 fl (80-100); Mean Platelet Volume 12.1 fl (7.4-10.4); Platelet Count Result 170 k/mm3 (150-375); Red Blood Count 2.95 M/mm3 (4.2-5.4); Red Cell Distribution Width 18.6 % (11.5-14.5); White Blood Count 8.6 K/mm3 (4.5-10.0)
[2023-04-30 11:07] LABS: Anion Gap 9 mmol/L (8-16); Blood Urea Nitrogen 81 mg/dL (7-17); Calcium 7.7 mg/dL (8.4-10.2); Carbon Dioxide 19 mmol/L (22-30); Chloride 111 mmol/L (98-107); Estimated Glomerular Filt Rate 22; Glucose 78 mg/dL (65-110); Magnesium 1.7 mg/dL (1.6-2.3); Potassium 4.2 mmol/L (3.4-5.0); Sodium 139 mmol/L (137-145)
--- NOTE | 2023-04-30 12:11 | PM.IMPN ---
Progress Note: A&P Assessment and Plan (1) Severe sepsis: Code(s): A41.9 - Sepsis, unspecified organism; R65.20 - Severe sepsis without septic shock Status: Acute Assessment and Plan: Patient presented with severe refractory hypotension likely secondary to sepsis of unknown cause. Etiology is unclear. WBCs elevated. Chest x-ray without any acute pulmonary process. Urinalysis showed pyuria with 3+ LE and more than 100 the BC, CT +bacteria. This may be secondary to urosepsis. She was appropriately started on broad-spectrum antibiotics. Follow-up blood and urine culture. the family's repeatedly refusing placement of central line; transfer to ICU had to be hold. (2) Acute renal injury due to sepsis: Code(s): A41.9 - Sepsis, unspecified organism; R65.20 - Severe sepsis without septic shock; N17.9 - Acute kidney failure, unspecified Status: Acute Assessment and Plan: Patient presents acute kidney injury with creatinine elevated at 5.3 on admission. Baseline kidney function creatinine 0.6 x 0.8 earlier this month is between April 04, 2023 and April 24, 2023. This is likely secondary to shows poor renal kidney injury versus ischemic ATN in the setting of refractory hypotension due to severe sepsis. Patient was aggressively rehydrated with IV fluid. Unfortunately family is declining central line placement. She was given albumin infusion and started on midodrine. Nephrology has been consulted. Obtain renal ultrasound renal electrolyte. Continue supportive management. Given refusal of central lying, precluding life-saving treatment like pressors. The prognosis of this is uncertain. (3) Uremic encephalopathy: Code(s): G93.49 - Other encephalopathy; N19 - Unspecified kidney failure Status: Acute Assessment and Plan: Patient with altered mental status at presentation. BUN acute deterioration of kidney function this may represent a case of uremic encephalopathy. However baseline kidney function was perfect up to 5 days ago. BUN is quite elevated at 2 122 which put her at risk for uremic encephalopathy. (4) Severe protein-calorie malnutrition: Code(s): E43 - Unspecified severe protein-calorie malnutrition Status: Acute Assessment and Plan: Patient oral intake is extremely poor. She is chronically debilitated and severely malnourished. BMI is 20. He she is to survive this, consider oracle brm developer evaluation and send prealbumin level. (5) Opioid use: Code(s): F11.90 - Opioid use, unspecified, uncomplicated Status: Acute Assessment and Plan: Given poor prognosis keep comfortable. (6) Heart failure with reduced ejection fraction: Code(s): I50.20 - Unspecified systolic (congestive) heart failure Status: Acute Assessment and Plan: Due to severe refractory hypotension call with the medication are currently on hold. (7) Chronic obstructive pulmonary disease: Code(s): J44.9 - Chronic obstructive pulmonary disease, unspecified Status: Acute Assessment and Plan: Currently not in acute exacerbation. (8) Altered mental status: Qualifiers: Altered mental status type: unspecified Qualified Code(s): R41.82 - Altered mental status, unspecified Code(s): R41.82 - Altered mental status, unspecified Status: Acute (9) Anemia: Code(s): D64.9 - Anemia, unspecified Status: Acute Assessment and Plan: Anemia normochromic normocytic likely anemia of acute kidney disease. Hemoglobin 9.5. There is no indication for blood transfusion. Continue to monitor serial H&H. (10) Chronic anticoagulation: Code(s): Z79.01 - prison (current) use of anticoagulants Status: Chronic Assessment and Plan: Continue home meds. (11) Acute hyponatremia: Code(s): E87.1 - Hypo-osmolality and hyponatremia Status: Acute Assessment and Plan: Patient presents
--- NOTE | 2023-04-30 12:25 | P.CONNP_ITS ---
Assessment and Plan Assessment and plan (1) AILEEN (acute kidney injury): Code(s): N17.9 - Acute kidney failure, unspecified Status: Acute Assessment and Plan: * improvement noted with current interventions * multifactorial etiology: * hemodynamic instability/hypotension * possible infection/sepsis * prerenal factors * medications (Entresto + diuretics + BP medications) * continue IVF support as tolerated * unable to place central line or initiate pressors as per request of family * continue efforts to optimize hemodynamics * follow repeat labs and UOP (2) Shock: Code(s): R57.9 - Shock, unspecified Status: Acute Assessment and Plan: * refractory to IVF resuscitation * suspect a combination hypovolemic and possibly sepsis * cultures pending * on broad spectrum antibiotics * no central line placement per family * continue IVFs and IV albumin * follow trend of hemodynamics (3) Acute hyponatremia: Code(s): E87.1 - Hypo-osmolality and hyponatremia Status: Acute Assessment and Plan: * resolved * suspect due to AILEEN and hypovolemia * follow trend (4) Altered mental status: Qualifiers: Altered mental status type: unspecified Qualified Code(s): R41.82 - Altered mental status, unspecified Code(s): R41.82 - Altered mental status, unspecified Status: Acute Assessment and Plan: * likely due to a combination of uremia (high BUN on admission) coupled with altered hemodynamics * renal function improving but still with suboptimal hemodynamics * follow mentation (5) Anemia: Code(s): D64.9 - Anemia, unspecified Status: Acute Assessment and Plan: * due to AILEEN coupled with chronic disease * follow trend of H/H with IVF hydration * PRBC transfusion per protocol (6) Severe protein-calorie malnutrition: Code(s): E43 - Unspecified severe protein-calorie malnutrition Status: Acute Assessment and Plan: * reported due to poor oral intake given recent hospitalization * optimize nutrtion as tolerated I will continue follow patient with you while she remains hospitalized make further recommendations during her hospital course. Thank you for allowing me to participate in care this patient. History of Present Illness Reason for Consult Consult date: 04/30/23 Reason for consult: acute renal failure Chief Complaint Chief complaint: Severe Sepsis w/Kidney Failure,UTI,Uremia History of Present Illness Narrative: The patient is a 67-year-old female with a past medical history as outlined below who presented to [facility] Emergency Room with multiple issues including poor oral intake, altered mental status, and failure to thrive. The patient had recurrent hospitalizations over last month related to a chronic abdominal wound with on and off infections complicated by poor wound healing and assess City of a wound VAC. apparently, according to family members, the patient has had poor oral intake for last 2-3 days if not longer in association with the aforementioned altered mental status. As her symptoms seem to be progressively getting worse, she came to the ER for further assessment. Workup and evaluation emergency room demonstrated the patient be quite hypotensive with blood pressures in the 80s systolic. Aggressive IV fluid resuscitation was instituted and subsequent testing demonstrated mild anemia, a mildly elevated white blood cell count, and a chemistry panel that showed mild hyponatremia in association with acute k
--- NOTE | 2023-04-30 12:25 | PM.CNNEP ---
Assessment and Plan Assessment and plan (1) AILEEN (acute kidney injury): Code(s): N17.9 - Acute kidney failure, unspecified Status: Acute Assessment and Plan: improvement noted with current interventions multifactorial etiology: hemodynamic instability/hypotension possible infection/sepsis prerenal factors medications (Entresto + diuretics + BP medications) continue IVF support as tolerated unable to place central line or initiate pressors as per request of family continue efforts to optimize hemodynamics follow repeat labs and UOP (2) Shock: Code(s): R57.9 - Shock, unspecified Status: Acute Assessment and Plan: refractory to IVF resuscitation suspect a combination hypovolemic and possibly sepsis cultures pending on broad spectrum antibiotics no central line placement per family continue IVFs and IV albumin follow trend of hemodynamics (3) Acute hyponatremia: Code(s): E87.1 - Hypo-osmolality and hyponatremia Status: Acute Assessment and Plan: resolved suspect due to AILEEN and hypovolemia follow trend (4) Altered mental status: Qualifiers: Altered mental status type: unspecified Qualified Code(s): R41.82 - Altered mental status, unspecified Code(s): R41.82 - Altered mental status, unspecified Status: Acute Assessment and Plan: likely due to a combination of uremia (high BUN on admission) coupled with altered hemodynamics renal function improving but still with suboptimal hemodynamics follow mentation (5) Anemia: Code(s): D64.9 - Anemia, unspecified Status: Acute Assessment and Plan: due to AILEEN coupled with chronic disease follow trend of H/H with IVF hydration PRBC transfusion per protocol (6) Severe protein-calorie malnutrition: Code(s): E43 - Unspecified severe protein-calorie malnutrition Status: Acute Assessment and Plan: reported due to poor oral intake given recent hospitalization optimize nutrtion as tolerated I will continue follow patient with you while she remains hospitalized make further recommendations during her hospital course. Thank you for allowing me to participate in care this patient. History of Present Illness Reason for Consult Consult date: 04/30/23 Reason for consult: acute renal failure Chief Complaint Chief complaint: Severe Sepsis w/Kidney Failure,UTI,Uremia History of Present Illness Narrative: The patient is a 67-year-old female with a past medical history as outlined below who presented to [facility] Emergency Room with multiple issues including poor oral intake, altered mental status, and failure to thrive. The patient had recurrent hospitalizations over last month related to a chronic abdominal wound with on and off infections complicated by poor wound healing and assess City of a wound VAC. apparently, according to family members, the patient has had poor oral intake for last 2-3 days if not longer in association with the aforementioned altered mental status. As her symptoms seem to be progressively getting worse, she came to the ER for further assessment. Workup and evaluation emergency room demonstrated the patient be quite hypotensive with blood pressures in the 80s systolic. Aggressive IV fluid resuscitation was instituted and subsequent testing demonstrated mild anemia, a mildly elevated white blood cell count, and a chemistry panel that showed mild hyponatremia in association with acute kidney injury/acute renal failure with a BUN of 122 a creatinine of 5.3. She did not appear to have any critical electrolyte abnormalities. Unfortunately, despite aggressive IV fluid resuscitation of approximately 4 L of crystalloid, the patient's blood pressure and only mildly improved. The emergency room physician was preparing for placement of a central line but the but the family refused this intervention. She ap
[2023-04-30 17:45] LABS: Creatinine Urine 57.9 mg/dL; Urea Random Urine 624 MG/DL
[2023-04-30 17:48] LABS: Sodium Urine Random 62 meq/L
[2023-04-30 20:08] LABS: Eosinophil Urine None Seen % (None Seen); Urine Eos QC 2nd Tech Confirmed
[2023-04-30 23:59] LABS: Anion Gap 10 mmol/L (8-16); Blood Urea Nitrogen 70 mg/dL (7-17); Carbon Dioxide 17 mmol/L (22-30); Chloride 111 mmol/L (98-107); Estimated Glomerular Filt Rate 35; Glucose 85 mg/dL (65-110); Potassium 4.3 mmol/L (3.4-5.0); Sodium 138 mmol/L (137-145)
[2023-05-01] VITALS (12 sets, daily range): BP systolic 126–175; BP diastolic 57–70; PULSE 54–78; RESP 16–22; TEMP 36.1–36.8; O2SAT 90–99
--- NOTE | 2023-05-01 00:28 | PM.EVENT ---
Event Note Event Note Event Note: Renal function is improving with creatinine 1.5. Bicarbonate level is low at 17. Start bicarbonate supplementation.
[2023-05-01] MEDS: SODIUM BICARBONATE TAB 325 MG TABLET PO ×3 (01:42→18:08)
[2023-05-01 04:51] LABS: Hematocrit 27.6 % (37.0-47.0); Hemoglobin 8.7 g/dL (12.0-15.0); Mean Corpuscular HGB Conc 31.5 g/dl (32-36); Mean Corpuscular Volume 88.7 fl (80-100); Mean Platelet Volume 12.4 fl (7.4-10.4); Platelet Count Result 211 k/mm3 (150-375); Red Blood Count 3.11 M/mm3 (4.2-5.4); Red Cell Distribution Width 19.1 % (11.5-14.5); White Blood Count 8.4 K/mm3 (4.5-10.0)
[2023-05-01 05:14] LABS: Alanine Aminotransferase 13 U/L (6-35); Albumin Level 2.9 g/dL (3.5-5.1); Alkaline Phosphatase 54 U/L (38-126); Anion Gap 9 mmol/L (8-16); Aspartate Amino Transferase 22 U/L (14-36); Bilirubin,Total 0.3 mg/dL (0.2-1.3); Blood Urea Nitrogen 63 mg/dL (7-17); Carbon Dioxide 19 mmol/L (22-30); Chloride 113 mmol/L (98-107); Creatine Kinase 175 U/L (30-135); Estimated Glomerular Filt Rate 38; Glucose 80 mg/dL (65-110); Potassium 4.2 mmol/L (3.4-5.0); Sodium 141 mmol/L (137-145)
[2023-05-01 06:06] LABS: Thyroid Stimulating Hormone Reflex 0.135 uIU/mL (0.465-4.68)
[2023-05-01] MEDS: MIDODRINE HCL 10 MG TABLET PO ×3 (09:27→18:08)
[2023-05-01] MEDS: LACTATED RINGERS 1,000 ML 60 ML IV CONT (09:31)
--- NOTE | 2023-05-01 10:58 | P.CDI_ITS ---
acute diastolic CDI Query Clarification Request Documented history of CHF. CHF noted in the assessment and plan. Lasix listed as a home medication. Please specify type and acuity of heart failure if known. * Acute * Chronic * Acute on Chronic * Unknown * Systolic * Diastolic * Combined Systolic and Diastolic * Unknown
--- NOTE | 2023-05-01 10:58 | WPDCDIQUERY2 ---
CDI Query Clarification Request Documented history of CHF. CHF noted in the assessment and plan. Lasix listed as a home medication. Please specify type and acuity of heart failure if known. Acute Chronic Acute on Chronic Unknown Systolic Diastolic Combined Systolic and Diastolic Unknown
--- NOTE | 2023-05-01 11:36 | PM.IMPN ---
Progress Note: A&P Assessment and Plan (1) Severe sepsis: Code(s): A41.9 - Sepsis, unspecified organism; R65.20 - Severe sepsis without septic shock Status: Acute Assessment and Plan: Improved. Continue IV antibiotics. (2) Acute renal injury due to sepsis: Code(s): A41.9 - Sepsis, unspecified organism; R65.20 - Severe sepsis without septic shock; N17.9 - Acute kidney failure, unspecified Status: Acute Assessment and Plan: Multifactorial with sepsis UTI. Likely dehydration. Improving with IV fluids. Creatinine today is 1.4. (3) Uremic encephalopathy: Code(s): G93.49 - Other encephalopathy; N19 - Unspecified kidney failure Status: Acute Assessment and Plan: Improved. (4) Severe protein-calorie malnutrition: Code(s): E43 - Unspecified severe protein-calorie malnutrition Status: Acute Assessment and Plan: Patient oral intake is extremely poor. (5) Opioid use: Code(s): F11.90 - Opioid use, unspecified, uncomplicated Status: Acute Assessment and Plan: Given poor prognosis keep comfortable. (6) Heart failure with reduced ejection fraction: Code(s): I50.20 - Unspecified systolic (congestive) heart failure Status: Acute Assessment and Plan: Due to severe refractory hypotension call with the medication are currently on hold. (7) Chronic obstructive pulmonary disease: Code(s): J44.9 - Chronic obstructive pulmonary disease, unspecified Status: Acute Assessment and Plan: Currently not in acute exacerbation. (8) Altered mental status: Qualifiers: Altered mental status type: unspecified Qualified Code(s): R41.82 - Altered mental status, unspecified Code(s): R41.82 - Altered mental status, unspecified Status: Acute (9) Anemia: Code(s): D64.9 - Anemia, unspecified Status: Acute Assessment and Plan: Anemia normochromic normocytic likely anemia of acute kidney disease. Hemoglobin 9.5. There is no indication for blood transfusion. Continue to monitor serial H&H. (10) Chronic anticoagulation: Code(s): Z79.01 - fitting room checker (current) use of anticoagulants Status: Chronic Assessment and Plan: Continue home meds. (11) Acute hyponatremia: Code(s): E87.1 - Hypo-osmolality and hyponatremia Status: Acute Assessment and Plan: Patient presents hyponatremia likely secondary to decreased water clearance in the setting of worsening kidney function. Subjective Date/time seen: 05/01/23 11:36 Interval history: Doing well. No new complaints Exam Narrative: GENERAL: The patient is alert and orientedX2, appears thin, frain, chronically -ill but is in no apparent distress. HEENT: Pupils are equally round and reactive to light. Oral mucous membranes are moist without lesions. NECK: The patient has no noted JVD. No cervical palpable lymphadenopathy. CHEST/LUNGS: Lungs are clear bilaterally without rhonchi, rales, or wheezes. There is no subcutaneous air appreciated. There is no tenderness to the chest wall. HEART: The patient has a regular rate and rhythm. No murmurs, rubs, or gallops are appreciated. Distal pulses are 2+. No carotid bruits appreciated. ABDOMEN: The patient?s abdomen is scaphoid. Dry wound; no oozing. EXTREMITIES: The patient has no peripheral edema. There is no focal long bone tenderness or deformity. SKIN: The patient?s skin is warm and dry, without rashes or lesions. PSYCHIATRIC: The patient is AAOX2. NEUROLOGIC: grossly non focal. Objective Data Vital Signs Vital Signs: Vital Signs - 24 hr 04/30/23 12:00 04/30/23 12:00 04/30/23 12:00 Temperature 98.4 F Pulse Rate 72 63 Respiratory Rate 18 Blood Pressure 87/47 L Pulse Oximetry 95 95 Oxygen Delivery Nasal Cannula Oxygen Flow Rate 3 04/30/23 14:00 04/30/23 16:00 04/30/23 16:00 Temperature 98.4 F Pulse Rate
--- NOTE | 2023-05-01 13:15 | P.PNNP_ITS ---
Progress Note: A&P Assessment and Plan (1) AILEEN (acute kidney injury): Code(s): N17.9 - Acute kidney failure, unspecified Status: Acute Assessment and Plan: * improvement noted with current interventions * multifactorial etiology: * hemodynamic instability/hypotension * possible infection/sepsis * prerenal factors * medications (Entresto + diuretics + BP medications) * evaluation to date: * renal ultrasound negative * urine electrolytes (by FeUrea) suggest prerenal azotemia * urine eosinophils negative * CPK mildly elevated but not enough to affect kidney function * continue IVF support and wean off as tolerated * continue efforts to optimize hemodynamics * follow repeat labs and UOP (2) Shock: Code(s): R57.9 - Shock, unspecified Status: Acute Assessment and Plan: * refractory to IVF resuscitation * suspect a combination hypovolemic and possibly sepsis * cultures pending * on broad spectrum antibiotics * no central line placement per family * continue IVFs and IV albumin * follow trend of hemodynamics (3) Acute hyponatremia: Code(s): E87.1 - Hypo-osmolality and hyponatremia Status: Acute Assessment and Plan: * resolved * suspect due to AILEEN and hypovolemia * follow trend (4) Altered mental status: Qualifiers: Altered mental status type: unspecified Qualified Code(s): R41.82 - Altered mental status, unspecified Code(s): R41.82 - Altered mental status, unspecified Status: Acute Assessment and Plan: * improving * likely due to a combination of uremia (high BUN on admission) coupled with altered hemodynamics * follow mentation (5) Anemia: Code(s): D64.9 - Anemia, unspecified Status: Acute Assessment and Plan: * due to AILEEN coupled with chronic disease * follow trend of H/H with IVF hydration * PRBC transfusion per protocol (6) Severe protein-calorie malnutrition: Code(s): E43 - Unspecified severe protein-calorie malnutrition Status: Acute Assessment and Plan: * reported due to poor oral intake given recent hospitalization * optimize nutrtion as tolerated Will continue to follow. Subjective Date/time seen: 05/01/23 12:45 Interval history: Follow-up for acute kidney injury/acute renal failure and hyponatremia. Since last seen, renal function has improved remarkably well and sodium level has normalized; mentation appears to be doing better as well; at the time of my visit, she is eating lunch without any issues or problems; no acute distress noted. Exam Narrative: General: thin female in NAD Heart: normal S1 and S2; no rub Lungs: clear to auscultation Abdomen: soft, nontender, nondistended, positive bowel sounds Extremities: no cyanosis or clubbing; no edema Skin: warm and dry Objective Data Vital Signs Vital Signs: Vital Signs Temp Pulse Resp BP Pulse Ox O2 Del Method O2 Flow Rate 05/01/23 12:00 98.2 F 64 16 164/70 H 90 05/01/23 12:00 60 05/01/23 12:00 92 Nasal Cannula 2 05/01/23 08:00 92 Nasal Cannula 2 05/01/23 10:00 60 05/01/23 08:00 63 05/01/23 09:01 92 Nasal Cannula 2 05/01/23 08:00 98.2 F 60 16 137/57 L 95 05/01/23 04:00 54 L
--- NOTE | 2023-05-01 13:15 | PM.PNNEP ---
Progress Note: A&P Assessment and Plan (1) AILEEN (acute kidney injury): Code(s): N17.9 - Acute kidney failure, unspecified Status: Acute Assessment and Plan: improvement noted with current interventions multifactorial etiology: hemodynamic instability/hypotension possible infection/sepsis prerenal factors medications (Entresto + diuretics + BP medications) evaluation to date: renal ultrasound negative urine electrolytes (by FeUrea) suggest prerenal azotemia urine eosinophils negative CPK mildly elevated but not enough to affect kidney function continue IVF support and wean off as tolerated continue efforts to optimize hemodynamics follow repeat labs and UOP (2) Shock: Code(s): R57.9 - Shock, unspecified Status: Acute Assessment and Plan: refractory to IVF resuscitation suspect a combination hypovolemic and possibly sepsis cultures pending on broad spectrum antibiotics no central line placement per family continue IVFs and IV albumin follow trend of hemodynamics (3) Acute hyponatremia: Code(s): E87.1 - Hypo-osmolality and hyponatremia Status: Acute Assessment and Plan: resolved suspect due to AILEEN and hypovolemia follow trend (4) Altered mental status: Qualifiers: Altered mental status type: unspecified Qualified Code(s): R41.82 - Altered mental status, unspecified Code(s): R41.82 - Altered mental status, unspecified Status: Acute Assessment and Plan: improving likely due to a combination of uremia (high BUN on admission) coupled with altered hemodynamics follow mentation (5) Anemia: Code(s): D64.9 - Anemia, unspecified Status: Acute Assessment and Plan: due to AILEEN coupled with chronic disease follow trend of H/H with IVF hydration PRBC transfusion per protocol (6) Severe protein-calorie malnutrition: Code(s): E43 - Unspecified severe protein-calorie malnutrition Status: Acute Assessment and Plan: reported due to poor oral intake given recent hospitalization optimize nutrtion as tolerated Will continue to follow. Subjective Date/time seen: 05/01/23 12:45 Interval history: Follow-up for acute kidney injury/acute renal failure and hyponatremia. Since last seen, renal function has improved remarkably well and sodium level has normalized; mentation appears to be doing better as well; at the time of my visit, she is eating lunch without any issues or problems; no acute distress noted. Exam Narrative: General: thin female in NAD Heart: normal S1 and S2; no rub Lungs: clear to auscultation Abdomen: soft, nontender, nondistended, positive bowel sounds Extremities: no cyanosis or clubbing; no edema Skin: warm and dry Objective Data Vital Signs Vital Signs: Vital Signs Temp Pulse Resp BP Pulse Ox O2 Del Method O2 Flow Rate 05/01/23 12:00 98.2 F 64 16 164/70 H 90 05/01/23 12:00 60 05/01/23 12:00 92 Nasal Cannula 2 05/01/23 08:00 92 Nasal Cannula 2 05/01/23 10:00 60 05/01/23 08:00 63 05/01/23 09:01 92 Nasal Cannula 2 05/01/23 08:00 98.2 F 60 16 137/57 L 95 05/01/23 04:00 54 L 05/01/23 04:00 97.6 F 61 20 137/69 99 05/01/23 04:00 95 Nasal Cannula 2 05/01/23 00:00 63 05/01/23 00:00 97.6 F 67 22 H 126/68 92 04/30/23 23:55 94 Nasal Cannula 2 04/30/23 20:00 67 04/30/23 20:00 94 Nasal Cannula 2 04/30/23 20:00 97.8 F 65 20 134/60 93 04/30/23 18:00 67 04/30/23 16:00 94 Nasal Cannula 2 04/30/23 16:00 72 04/30/23 16:00 98.4 F 68 22 H 112/54 L 94 04/30/23 14:00 64 Intake/Output Intake/Output: Intake & Output 04/28/23 04/29/23 04/30/23 05/01/23 23:59 23:59 23:59 23:59 Intake Total 4050 3310 1240 Output Total 1050 600 Balance 4050
[2023-05-01 14:44] LABS: Free T4 Free Thyroxine Reflex 0.86 ng/dL (0.78-2.19)
[2023-05-01 17:13] LABS: Total Triiodothyronine (T3) 0.49 NG/ML (0.97-1.69)
--- NOTE | 2023-05-01 18:19 | PC.NURSE ---
This patient, Chantal Grove, was received from [[id number]] on 05/01/23 at 1820. Patient/family oriented to unit policies and routines.
[2023-05-01] MEDS: ONDANSETRON INJ 4 MG/2 ML VIAL IV PUSH (18:34)
[2023-05-01] MEDS: AMOXICILLIN/CLAVULANATE K 875-125 MG TAB 1 TABLET PO (20:23)
[2023-05-02] VITALS (8 sets, daily range): BP systolic 151–158; BP diastolic 71–77; PULSE 60–86; RESP 16–20; TEMP 36.1–36.6; O2SAT 89–92
[2023-05-02] MEDS: ACETAMINOPHEN 325 MG TABLET 650 MG PO ×2 (06:43→21:49)
[2023-05-02] MEDS: MIDODRINE HCL 10 MG TABLET PO ×3 (08:12→17:08)
[2023-05-02] MEDS: AMOXICILLIN/CLAVULANATE K 875-125 MG TAB 1 TABLET PO ×2 (08:12→21:31)
[2023-05-02] MEDS: SODIUM BICARBONATE TAB 325 MG TABLET PO ×2 (08:12→17:08)
[2023-05-02 08:33] LABS: Anion Gap 10 mmol/L (8-16); Blood Urea Nitrogen 39 mg/dL (7-17); Carbon Dioxide 17 mmol/L (22-30); Chloride 113 mmol/L (98-107); Estimated Glomerular Filt Rate > 60; Glucose 83 mg/dL (65-110); Sodium 140 mmol/L (137-145)
--- NOTE | 2023-05-02 10:48 | PCOTNOTE ---
Attempted to see pt. for occupational therapy evaluation. Pt. currently with hospitalist, unable to complete at this time. Nursing aware.
--- NOTE | 2023-05-02 12:27 | PM.IMPN ---
Progress Note: A&P Assessment and Plan (1) Severe sepsis: Code(s): A41.9 - Sepsis, unspecified organism; R65.20 - Severe sepsis without septic shock Status: Acute Assessment and Plan: Improved. Continue IV antibiotics. (2) Acute renal injury due to sepsis: Code(s): A41.9 - Sepsis, unspecified organism; R65.20 - Severe sepsis without septic shock; N17.9 - Acute kidney failure, unspecified Status: Acute Assessment and Plan: Multifactorial with sepsis UTI. Likely dehydration. Improving with IV fluids. Creatinine today is 1.4. (3) Uremic encephalopathy: Code(s): G93.49 - Other encephalopathy; N19 - Unspecified kidney failure Status: Acute Assessment and Plan: Improved. (4) Severe protein-calorie malnutrition: Code(s): E43 - Unspecified severe protein-calorie malnutrition Status: Acute Assessment and Plan: Patient oral intake is extremely poor. (5) Opioid use: Code(s): F11.90 - Opioid use, unspecified, uncomplicated Status: Acute Assessment and Plan: Given poor prognosis keep comfortable. (6) Heart failure with reduced ejection fraction: Code(s): I50.20 - Unspecified systolic (congestive) heart failure Status: Acute Assessment and Plan: Due to severe refractory hypotension call with the medication are currently on hold. (7) Chronic obstructive pulmonary disease: Code(s): J44.9 - Chronic obstructive pulmonary disease, unspecified Status: Acute Assessment and Plan: Currently not in acute exacerbation. (8) Altered mental status: Qualifiers: Altered mental status type: unspecified Qualified Code(s): R41.82 - Altered mental status, unspecified Code(s): R41.82 - Altered mental status, unspecified Status: Acute (9) Anemia: Code(s): D64.9 - Anemia, unspecified Status: Acute Assessment and Plan: Anemia normochromic normocytic likely anemia of acute kidney disease. Hemoglobin 9.5. There is no indication for blood transfusion. Continue to monitor serial H&H. (10) Chronic anticoagulation: Code(s): Z79.01 - long term care social worker (current) use of anticoagulants Status: Chronic Assessment and Plan: Continue home meds. (11) Acute hyponatremia: Code(s): E87.1 - Hypo-osmolality and hyponatremia Status: Acute Assessment and Plan: Patient presents hyponatremia likely secondary to decreased water clearance in the setting of worsening kidney function. Subjective Date/time seen: 05/02/23 12:27 Interval history: Feeling better overall. Exam Narrative: GENERAL: The patient is alert and orientedX2, appears thin, frain, chronically -ill but is in no apparent distress. HEENT: Pupils are equally round and reactive to light. Oral mucous membranes are moist without lesions. NECK: The patient has no noted JVD. No cervical palpable lymphadenopathy. CHEST/LUNGS: Lungs are clear bilaterally without rhonchi, rales, or wheezes. There is no subcutaneous air appreciated. There is no tenderness to the chest wall. HEART: The patient has a regular rate and rhythm. No murmurs, rubs, or gallops are appreciated. Distal pulses are 2+. No carotid bruits appreciated. ABDOMEN: The patient?s abdomen is scaphoid. Dry wound; no oozing. EXTREMITIES: The patient has no peripheral edema. There is no focal long bone tenderness or deformity. SKIN: The patient?s skin is warm and dry, without rashes or lesions. PSYCHIATRIC: The patient is AAOX2. NEUROLOGIC: grossly non focal. Objective Data Vital Signs Vital Signs: Vital Signs - 24 hr 05/01/23 14:00 05/01/23 16:00 05/01/23 16:00 Temperature Pulse Rate 78 64 Respiratory Rate Blood Pressure Pulse Oximetry 92 Oxygen Delivery Nasal Cannula Oxygen Flow Rate 2 05/01/23 16:00 05/01/23 18:00 05/01/23 18:46 Temperature 97.6 F 97.0 F L Pulse Rate 60 60 61 Respi
--- NOTE | 2023-05-02 12:32 | PCPTNOTE ---
On 05/02/23, the student, [Cintia Flynn], provided care and completed [facility] documentation on this patient. I have reviewed the student's documentation and agree with the findings.
--- NOTE | 2023-05-02 14:05 | P.PNNP_ITS ---
Progress Note: A&P Assessment and Plan (1) AILEEN (acute kidney injury): Code(s): N17.9 - Acute kidney failure, unspecified Status: Acute Assessment and Plan: * resolved noted with current interventions * multifactorial etiology: * hemodynamic instability/hypotension * possible infection/sepsis * prerenal factors * medications (Entresto + diuretics + BP medications) * evaluation to date: * renal ultrasound negative * urine electrolytes (by FeUrea) suggest prerenal azotemia * urine eosinophils negative * CPK mildly elevated but not enough to affect kidney function * off IVFs * continue efforts to optimize hemodynamics * follow repeat labs and UOP (2) Shock: Code(s): R57.9 - Shock, unspecified Status: Acute Assessment and Plan: * resolving * refractory to IVF resuscitation * suspect a combination hypovolemic and possibly sepsis * cultures noted * on antibiotics * on midodrine...consider weaning * follow trend of hemodynamics (3) Acute hyponatremia: Code(s): E87.1 - Hypo-osmolality and hyponatremia Status: Acute Assessment and Plan: * resolved * suspect due to AILEEN and hypovolemia * follow trend (4) Altered mental status: Qualifiers: Altered mental status type: unspecified Qualified Code(s): R41.82 - Altered mental status, unspecified Code(s): R41.82 - Altered mental status, unspecified Status: Acute Assessment and Plan: * improving * likely due to a combination of uremia (high BUN on admission) coupled with altered hemodynamics * follow mentation (5) Anemia: Code(s): D64.9 - Anemia, unspecified Status: Acute Assessment and Plan: * due to AILEEN coupled with chronic disease * follow trend of H/H with IVF hydration * PRBC transfusion per protocol (6) Severe protein-calorie malnutrition: Code(s): E43 - Unspecified severe protein-calorie malnutrition Status: Acute Assessment and Plan: * reported due to poor oral intake given recent hospitalization * optimize nutrtion as tolerated Not much else to add -- will continue to follow from a distance. Subjective Date/time seen: 05/02/23 14:05 Interval history: Follow-up for acute kidney injury/acute renal failure and hyponatremia. Renal function has normalized with current interventions; eating and drinking well; no apparent distress noted; no other issues/events overnight or earlier this morning; overall, feeling pretty good. Exam Narrative: General: thin female in NAD Heart: normal S1 and S2; no rub Lungs: clear to auscultation Abdomen: soft, nontender, nondistended, positive bowel sounds Extremities: no cyanosis or clubbing; no edema Skin: no rash Objective Data Vital Signs Vital Signs: Vital Signs Temp Pulse Resp BP Pulse Ox O2 Del Method O2 Flow Rate 05/02/23 14:00 97.6 F 60 16 156/71 H 90 05/02/23 12:00 62 05/02/23 09:51 Nasal Cannula 2 05/02/23 08:00 92 Nasal Cannula 2 05/02/23 08:00 61 05/02/23 06:00 97 F L 63 20 158/72 H 92 05/02/23 04:00 67 05/01/23 20:34 91 Nasal Cannula 2 05/01/23 20:00 65 21 H 90 Nasal Cannula 2 05/01/23 20:00 97.2 F L 65 21 H 168/70 H 90
--- NOTE | 2023-05-02 14:05 | PM.PNNEP ---
Progress Note: A&P Assessment and Plan (1) AILEEN (acute kidney injury): Code(s): N17.9 - Acute kidney failure, unspecified Status: Acute Assessment and Plan: resolved noted with current interventions multifactorial etiology: hemodynamic instability/hypotension possible infection/sepsis prerenal factors medications (Entresto + diuretics + BP medications) evaluation to date: renal ultrasound negative urine electrolytes (by FeUrea) suggest prerenal azotemia urine eosinophils negative CPK mildly elevated but not enough to affect kidney function off IVFs continue efforts to optimize hemodynamics follow repeat labs and UOP (2) Shock: Code(s): R57.9 - Shock, unspecified Status: Acute Assessment and Plan: resolving refractory to IVF resuscitation suspect a combination hypovolemic and possibly sepsis cultures noted on antibiotics on midodrine...consider weaning follow trend of hemodynamics (3) Acute hyponatremia: Code(s): E87.1 - Hypo-osmolality and hyponatremia Status: Acute Assessment and Plan: resolved suspect due to AILEEN and hypovolemia follow trend (4) Altered mental status: Qualifiers: Altered mental status type: unspecified Qualified Code(s): R41.82 - Altered mental status, unspecified Code(s): R41.82 - Altered mental status, unspecified Status: Acute Assessment and Plan: improving likely due to a combination of uremia (high BUN on admission) coupled with altered hemodynamics follow mentation (5) Anemia: Code(s): D64.9 - Anemia, unspecified Status: Acute Assessment and Plan: due to AILEEN coupled with chronic disease follow trend of H/H with IVF hydration PRBC transfusion per protocol (6) Severe protein-calorie malnutrition: Code(s): E43 - Unspecified severe protein-calorie malnutrition Status: Acute Assessment and Plan: reported due to poor oral intake given recent hospitalization optimize nutrtion as tolerated Not much else to add -- will continue to follow from a distance. Subjective Date/time seen: 05/02/23 14:05 Interval history: Follow-up for acute kidney injury/acute renal failure and hyponatremia. Renal function has normalized with current interventions; eating and drinking well; no apparent distress noted; no other issues/events overnight or earlier this morning; overall, feeling pretty good. Exam Narrative: General: thin female in NAD Heart: normal S1 and S2; no rub Lungs: clear to auscultation Abdomen: soft, nontender, nondistended, positive bowel sounds Extremities: no cyanosis or clubbing; no edema Skin: no rash Objective Data Vital Signs Vital Signs: Vital Signs Temp Pulse Resp BP Pulse Ox O2 Del Method O2 Flow Rate 05/02/23 14:00 97.6 F 60 16 156/71 H 90 05/02/23 12:00 62 05/02/23 09:51 Nasal Cannula 2 05/02/23 08:00 92 Nasal Cannula 2 05/02/23 08:00 61 05/02/23 06:00 97 F L 63 20 158/72 H 92 05/02/23 04:00 67 05/01/23 20:34 91 Nasal Cannula 2 05/01/23 20:00 65 21 H 90 Nasal Cannula 2 05/01/23 20:00 97.2 F L 65 21 H 168/70 H 90 Intake/Output Intake/Output: Intake & Output 04/29/23 04/30/23 05/01/23 05/02/23 23:59 23:59 23:59 23:59 Intake Total 4050 3310 1610 1076 Output Total 1050 1500 1225 Balance 4050 2260 110 -149 Meds/Results Medications: Active Medications Generic Name Dose Route Start Last Admin Trade Name Freq PRN Reason Stop Dose Admin Acetaminophen 650 mg 04/29/23 22:49 05/02/23 06:43 Acetaminophen 325 Mg Tablet PO 650 mg Q4H PRN Administration Mild Pain (1-3) or Fever Amoxicillin/Clavulanate Potassium 1 tablet 05/01/23 21:00 05/02/23 08:12 Amoxicillin/Clavulanate K 875-125 Mg Tab PO 05/06/23 09:01 1 tablet Q12HR FEMI Administration Midodrine
--- NOTE | 2023-05-02 14:24 | PCOTNOTE ---
Attempted to see pt. for occupational therapy evaluation. Pt. declined to participate at this time stating no to all ADLs suggested. Pt. instructed on purpose for evaluation and repeatedly declined. Nursing aware.
[2023-05-03] VITALS: PULSE 76
[2023-05-03 04:00] VITALS: PULSE 65
[2023-05-03 06:00] VITALS: BP 158/79; PULSE 70; RESP 16; TEMP 36.7; O2SAT 94
[2023-05-03 09:00] VITALS: PULSE 77; O2SAT 94
[2023-05-03] MEDS: SODIUM BICARBONATE TAB 325 MG TABLET PO (09:06)
[2023-05-03] MEDS: AMOXICILLIN/CLAVULANATE K 875-125 MG TAB 1 TABLET PO (09:06)
[2023-05-03 09:07] VITALS: PULSE 70
[2023-05-03] MEDS: POTASSIUM CHLORIDE 20 MEQ TABLET.ER PO (09:07)
[2023-05-03] MEDS: oxyBUTYnin CHLORIDE XL 5 MG TAB.ER.24 PO (09:07)
[2023-05-03] MEDS: SERTRALINE HCL 50 MG TABLET 100 MG PO (09:07)
[2023-05-03] MEDS: SACUBITRIL/VALSARTAN 24-26 MG TABLET 1 TAB PO (09:07)
[2023-05-03] MEDS: METOPROLOL SUCCINATE EXT REL 100 MG TABCR PO (09:07)
[2023-05-03] MEDS: MIDODRINE HCL 10 MG TABLET PO ×2 (09:07→12:09)
[2023-05-03] MEDS: PREGABALIN (*CRX) 50 MG CAPSULE 100 MG PO (09:09)
--- NOTE | 2023-05-03 09:09 | ECG_ITS ---
Measurements Intervals [place] Rate: 63 P: 77 [place]: 169 QRS: 69 QRSD: 97 T: 55 QT: 440 QTc: 453 Interpretive Statements SINUS RHYTHM LOW QRS VOLTAGE IN EXTREMITY LEADS [QRS DEFLECTION < 0.5 mV IN LIMB LEADS] COMPARED TO ECG 04/29/2023 17:57:09 NO SIGNIFICANT CHANGES Electronically Signed On 05-03-2023 11:03:13 CDT by Diego Jack M.D.
[2023-05-03 10:06] LABS: Troponin I < 0.012 ng/mL (0.000-0.034)
--- NOTE | 2023-05-03 11:00 | PCOTNOTE ---
Addendum entered by Michaelle Sun OT 05/03/23 11:22: Attempted to see pt. for occupational therapy evaluation. Pt. declined to participate at this time. Nursing aware. Pt. educated on purpose and importance of participation in therapy services. Pt. repeatedly declined Original Note: Attempted to see pt. for
--- NOTE | 2023-05-03 11:51 | PM.DS ---
DS: Admitting Diagnosis Discharge Date May 03, 2020 Admitting Diagnosis Sepsis, kidney failure. UTI DS: Discharge Diagnosis Discharge Diagnosis (1) Severe sepsis: Code(s): A41.9 - Sepsis, unspecified organism; R65.20 - Severe sepsis without septic shock Status: Acute Assessment and Plan: Improved. Continue IV antibiotics. (2) Acute renal injury due to sepsis: Code(s): A41.9 - Sepsis, unspecified organism; R65.20 - Severe sepsis without septic shock; N17.9 - Acute kidney failure, unspecified Status: Acute Assessment and Plan: Multifactorial with sepsis UTI. Likely dehydration. Improving with IV fluids. Creatinine today is 1.4. (3) Uremic encephalopathy: Code(s): G93.49 - Other encephalopathy; N19 - Unspecified kidney failure Status: Acute Assessment and Plan: Improved. (4) Severe protein-calorie malnutrition: Code(s): E43 - Unspecified severe protein-calorie malnutrition Status: Acute Assessment and Plan: Patient oral intake is extremely poor. (5) Opioid use: Code(s): F11.90 - Opioid use, unspecified, uncomplicated Status: Acute Assessment and Plan: Given poor prognosis keep comfortable. (6) Heart failure with reduced ejection fraction: Code(s): I50.20 - Unspecified systolic (congestive) heart failure Status: Acute Assessment and Plan: Due to severe refractory hypotension call with the medication are currently on hold. (7) Chronic obstructive pulmonary disease: Code(s): J44.9 - Chronic obstructive pulmonary disease, unspecified Status: Acute Assessment and Plan: Currently not in acute exacerbation. (8) Altered mental status: Qualifiers: Altered mental status type: unspecified Qualified Code(s): R41.82 - Altered mental status, unspecified Code(s): R41.82 - Altered mental status, unspecified Status: Acute (9) Anemia: Code(s): D64.9 - Anemia, unspecified Status: Acute Assessment and Plan: Anemia normochromic normocytic likely anemia of acute kidney disease. Hemoglobin 9.5. There is no indication for blood transfusion. Continue to monitor serial H&H. (10) Chronic anticoagulation: Code(s): Z79.01 - MCC (current) use of anticoagulants Status: Chronic Assessment and Plan: Continue home meds. (11) Acute hyponatremia: Code(s): E87.1 - Hypo-osmolality and hyponatremia Status: Acute Assessment and Plan: Patient presents hyponatremia likely secondary to decreased water clearance in the setting of worsening kidney function. DS: Summary Hospital Course Hospital Course: Patient was admitted for sepsis, UTI. Also secondary to sepsis patient had acute kidney injury. Nephrology was consulted and patient subsequently improved significantly with IV fluids treatment of her sepsis. Patient had a UTI which is likely the culprit for her sepsis. Urine culture did grow Klebsiella. Patient will be sent home on Augmentin. Time Spent with Patient Time attestation: Total time spent providing and/or coordinating discharge services: Exam Narrative: GENERAL: The patient is alert and orientedX2, appears thin, frain, chronically -ill but is in no apparent distress. HEENT: Pupils are equally round and reactive to light. Oral mucous membranes are moist without lesions. NECK: The patient has no noted JVD. No cervical palpable lymphadenopathy. CHEST/LUNGS: Lungs are clear bilaterally without rhonchi, rales, or wheezes. There is no subcutaneous air appreciated. There is no tenderness to the chest wall. HEART: The patient has a regular rate and rhythm. No murmurs, rubs, or gallops are appreciated. Distal pulses are 2+. No carotid bruits appreciated. ABDOMEN: The patient?s abdomen is scaphoid. Dry wound; no oozing. EXTREMITIES: The patient has no peripheral edema. There is no focal long bone tenderne
[2023-05-05 16:16] LABS: Chloride Rand Ur 47 mmol/L (32-290); Chloride/Creatinine Rand Ur 82 (38-318); Creatinine Random Urine 57 mg/dL (20-275)
== END 2023-05-03 13:30 | disposition home or self-care (01) | DRG 871 ==
LOC: ANHED 19:03 → ANHIMU 23:05 → ANH3MEDSUR 05-03 11:51 → ANHIMU 05-05 14:03
PROVIDERS: Emergency Medicine; Internal Medicine Nephrology; Admitting Provider Internal Medicine; Emergency Provider Emergency Medicine; PCP Registered Nurse; Visit Provider Chiropractor
DX: A41.9 Sepsis, unspecified organism (principal); E43 Unspecified severe protein-calorie malnutrition; G93.41 Metabolic encephalopathy; R65.21 Severe sepsis with septic shock; N17.9 Acute kidney failure, unspecified; N39.0 Urinary tract infection, site not specified; E87.1 Hypo-osmolality and hyponatremia; I50.22 Chronic systolic (congestive) heart failure; B96.1 Klebsiella pneumoniae [K. pneumoniae] as the cause of diseases classified elsewhere; R65.20 Severe sepsis without septic shock; D50.9 Iron deficiency anemia, unspecified; E86.0 Dehydration; I48.91 Unspecified atrial fibrillation; F32.A Depression, unspecified; F17.210 Nicotine dependence, cigarettes, uncomplicated; G62.9 Polyneuropathy, unspecified; G89.29 Other chronic pain; I11.0 Hypertensive heart disease with heart failure; I73.9 Peripheral vascular disease, unspecified; J44.9 Chronic obstructive pulmonary disease, unspecified; M54.9 Dorsalgia, unspecified; R62.7 Adult failure to thrive; Z90.49 Acquired absence of other specified parts of digestive tract; Z66 Do not resuscitate; Z79.01 Long term (current) use of anticoagulants; Z68.20 Body mass index [BMI] 20.0-20.9, adult; Z79.891 Long term (current) use of opiate analgesic
CPT/HCPCS: 36415; 71045; 76775; 80048; 80053; 81001; 82436; 82550; 82570; 83605; 83735; 84300; 84439; 84443; 84480; 84484; 84540; 85025; 85027; 85610; 85730; 85999; 87040; 87077; 87086; 87088; 87186; 93005; 96361; 96365; 96366; 96367; 96376; 97161; 99285; A9270; G0378; J0696; J2405; J7030; J7120; P9045; P9047

== ENCOUNTER 2023-08-08 13:29 | Emergency (ER) | payer MEDICARE, SELFPAY ==
--- NOTE | ~2023-08-08 | CT_ITS ---
EXAMINATION: CT cervical spine wo con DATE: 08/08/2023 14:58 INDICATION: Head injury TECHNIQUE: Computed tomography (CT) of the cervical spine was performed without intravenous contrast. The dose-length product (DLP) was 88.96 mGy-cm. Automated exposure control and iterative reconstruct ion technique were employed. COMPARISON: None FINDINGS: There are 3 mm of anterolisthesis of C3 on C4, 5 mm of anterolisthesis of C4 on C5, and 2 m m of anterolisthesis of C5 on C6. There is no cervical spine fracture. The vertebral body heights are maintained. There is severe loss of intervertebral disc space height from C3-4 through C7-T1. The od ontoid process is intact. There is mild widening of the C4-5 facet on the left, likely chronic. There is multilevel severe facet and uncovertebral joint osteoarthritis. There is an oblique fracture in t he medial aspect of the right clavicle. There is severe emphysema of the visualized lung apices. IMPRESSION: 1. Oblique fracture in the medial aspect of the right clavicle. 2. Severe cervical spondylosis without acute findings. Reviewed, dictated and finalized at location B.
--- NOTE | ~2023-08-08 | XR_ITS ---
EXAMINATION: XR shoulder RT min 2V DATE: 08/08/2023 14:10 INDICATION: Right shoulder pain. Fall. TECHNIQUE: 4 views of right shoulder were obtained. COMPARISON: Chest CT 01/01/2023 FINDINGS: Bone alignment is normal. No acute fracture. There is mild osteoarthritis of acromioclavicu lar joint. There is advanced osteoarthritis of glenohumeral joint with flattening of humeral head. Em physema is noted. IMPRESSION: 1. Advanced osteoarthritis of glenohumeral joint. Reviewed, dictated and finalized at location A.
--- NOTE | ~2023-08-08 | CT_ITS ---
EXAMINATION: CT brain wo con DATE: 08/08/2023 14:58 INDICATION: Neck pain. Head injury. TECHNIQUE: Computed tomography (CT) of the head was performed without intravenous contrast. The mA wa s adjusted according to patient size. Iterative reconstruction technique was employed. The dose-lengt h product was 605.33 mGy-cm. COMPARISON: Head CT 04/22/2023 FINDINGS: There are scattered areas of low attenuation in the cerebral white matter. There is no intr acranial hemorrhage, acute infarction, or abnormal intracranial mass lesion. The ventricles are marly l in size. There are likely changes of ocular lens replacement surgeries. The paranasal sinuses are c lear. The mastoid air cells are normal. IMPRESSION: 1. Stable mild nonspecific cerebral white matter disease, which likely represents chronic small vesse l ischemic disease. Reviewed, dictated and finalized at location A. IMPRESSION: 1. Stable mild nonspecific cerebral white matter disease, which likely represen ts chronic small vessel ischemic disease.
--- NOTE | ~2023-08-08 | XR_ITS ---
EXAMINATION: XR clavicle RT DATE: 08/08/2023 14:10 INDICATION: Right clavicle deformity. Fall. TECHNIQUE: 2 views of right clavicle were obtained. COMPARISON: None. FINDINGS: Bone alignment is normal. No fracture. There is mild osteoarthritis of acromioclavicular shannon int and severe osteoarthritis of glenohumeral joint. IMPRESSION: 1. Polyarticular osteoarthritis. Reviewed, dictated and finalized at location A.
[2023-08-08 13:33] VITALS: BP 164/117; PULSE 105; RESP 14; TEMP 36.7; O2SAT 95
[2023-08-08 14:17] VITALS: BP 174/89; PULSE 84; RESP 18; O2SAT 96
[2023-08-08 15:17] VITALS: BP 159/87; PULSE 86; RESP 18; O2SAT 96
--- NOTE | 2023-08-08 15:45 | ED.UPPEXIN ---
HPI - Extremity Injury (Upper) General Chief Complaint: Extremity Injury, Upper Stated Complaint: Right shoulder, neck, head pain Time Seen by Provider: 08/08/23 14:07 History of Present Illness HPI narrative: Patient is a 68-year-old female who presents ER with pain to her right neck and clavicle. Patient had a fall 3 days ago. Today she noticed when she was getting dressed she was having severe pain and felt she should come to the ER. She is also noticed new swelling to her medial clavicle. Patient is on a blood thinner. She did not lose consciousness when she fell but she did strike her head. No additional concerns at this time. Patient also reports chronic right shoulder pain with limited range of motion but has new pain since her fall. Related Data Home Medications Medication Instructions Recorded Confirmed sertraline 100 mg tablet 100 mg PO QAM 08/27/22 04/29/23 furosemide 20 mg tablet 20 mg PO DAILY 03/18/23 04/29/23 oxybutynin chloride 5 mg 5 mg PO QAM 03/18/23 04/29/23 tablet,extended release 24 hr pregabalin 100 mg capsule 100 mg PO BID 04/23/23 04/29/23 Allergies Allergy/AdvReac Type Severity Reaction Status Date / Time atorvastatin Allergy Itching Verified 08/08/23 14:16 codeine Allergy Hives Verified 08/08/23 14:16 vancomycin Allergy Rash Verified 08/08/23 14:16 Cephalosporins AdvReac Diarrhea Verified 08/08/23 14:16 Review of Systems Review of Systems: All systems reviewed & are unremarkable except as noted in HPI and below Constitutional: Constitutional: Denies chills and Denies fever(s) Eyes: Eyes: Denies change in vision and Denies photophobia Musculoskeletal: Musculoskeletal: Reports arthralgias, Reports joint swelling and Reports muscle cramps Integumentary/Breasts: Skin/Breast: Reports system reviewed and no additional complaints, except as docu Neurologic: Reports system reviewed and no additional complaints, except as documented PMFSH Past Medical History Medical History Atrial fibrillation Chronic back pain Chronic obstructive pulmonary disease Chronic use of opiate for therapeutic purpose Depression Foot drop Heart failure with reduced ejection fraction Hypertension Iron deficiency anemia Neuropathy Overactive bladder Peripheral artery disease (12/2022) Moderately decreased right MAGDIEL and severely decreased left MAGDIEL. Tobacco dependence Surgical History Surgical History History of appendectomy History of foot surgery History of incisional hernia repair History of laparoscopic cholecystectomy (12/01/22) With repair bile duct injury and placement T-tube. History of salpingostomy Repair of to falling tubal . History of spinal fusion History of umbilical hernia repair Family History Family History Other Heart disease Hypertension Social History Social History Social History: Surrogate medical decision maker: Dc Grove, spouse. Code status: Full code. Smoking packs per day: 0.5 Smoking cigarettes per day: 10.0 Years smoked: 44 Smoking pack-years: 22.00 Smoking status: Current every day smoker Second hand tobacco smoke exposure: No Additional smoking assessment comments: Now smoking about 5 or 6 cigarettes a day. Alcohol intake: current Drinks per week: 4 Substance use: never Substance use type: does not use Lack of Transportation: No Lack of Food: Never True Current Housing: I Have Housing Concerned About Future Housing: No Difficulty Paying Gas/Electric Bills: No Difficulty Paying for Meds: No Currently Unemployed: No Education: Associate Degree Difficulty w/ Childcare or Family Care: No Living arrangements: with family Additional living arrangements comments: Lives with spouse of 30 years in [place].
== END 2023-08-08 16:09 | disposition home or self-care (01) ==
PROVIDERS: Emergency Provider Emergency Medicine; PCP Registered Nurse
DX: S42.011A Anterior displaced fracture of sternal end of right clavicle, initial encounter for closed fracture (principal); I48.91 Unspecified atrial fibrillation; J44.9 Chronic obstructive pulmonary disease, unspecified; I11.0 Hypertensive heart disease with heart failure; I50.9 Heart failure, unspecified; F17.210 Nicotine dependence, cigarettes, uncomplicated; W19.XXXA Unspecified fall, initial encounter
CPT/HCPCS: 70450; 72125; 73000; 73030; 99284; A4565

== ENCOUNTER 2024-02-11 12:47 | Outpatient (CLI) | payer MEDICARE, SELFPAY ==
--- NOTE | ~2024-02-11 | CT_ITS ---
EXAMINATION: CT lung screening DATE: 02/11/2024 13:18 INDICATION: Z87.891 - Personal history of nicotine dependence TECHNIQUE: Computed tomography (CT) of the chest was performed without intravenous contrast. Addition al 3D reconstructions utilizing coronal maximum intensity projection (MIP) were performed. Automated exposure control and iterative reconstruction technique were employed. The dose-length product was 61 .15 mGy-cm. COMPARISON: 12/13/2022 FINDINGS: Severe emphysema. Unchanged peripheral pleural parenchymal scarring along the posterolateral left upp er lobe and lingula paralleling the major fissure. Small calcified left lower lobe nodule along side a couple noncalcified nodules the largest measuring 5 mm. Groundglass opacities at the posterior sulc i of the bilateral lower lobes most likely representing dependent passive atelectasis. No pulmonary e daquan or pleural effusion. Heart size is normal. Atherosclerotic coronary artery calcification. No per icardial effusion. Thoracic aorta is normal in caliber. No pathologically enlarged thoracic lymphaden opathy. There is calcified atherosclerosis of the aorta and many of the other arteries including at t he bilateral renal moise. Cholecystectomy clips at the gallbladder fossa. Moderate thoracic spondylosi s. Chronic compression fractures at T12 and L1. IMPRESSION: 1. Lung-RADS category 2: Benign appearance or behavior. Continue annual screening with noncontrast lo w-dose chest CT in 12 months. Reviewed, dictated and finalized at location B. IMPRESSION: 1. Lung-RADS category 2: Benign appearance or behavior. Continue annual screeni ng with noncontrast low-dose chest CT in 12 months.
== END 2024-02-11 12:48 | disposition home or self-care (01) ==
PROVIDERS: PCP Registered Nurse; Visit Provider Physician Assistant
DX: Z12.2 Encounter for screening for malignant neoplasm of respiratory organs (principal); Z87.891 Personal history of nicotine dependence
CPT/HCPCS: 71271

== ENCOUNTER 2024-05-14 11:08 | Outpatient (CLI) | payer MEDICARE, SELFPAY ==
--- NOTE | ~2024-05-14 | MR_ITS ---
Procedure: MR lumbar spine wo con Ordering provider: Asher Winters MD History: . M21.379 - Foot drop, unspecified foot . Comparison: None. Technique: MRI thoracic spine without contrast. FINDINGS: The numbering of vertebrae is based on data the screws are seen in L4 and S1 SPINAL CORD: Normal. The cord ends at the level of T12-L1. VERTEBRAL BODIES: Compression fracture of T12 and L1 is noted. The fracture is most likely chronic.. Normal marrow signal. Postoperative change s seen in the lower lumbar area. Spondylolisthesis is seen at the level of L4-L5. DISK SPACES: Narrowing of the disc T12-L1, L4-L5 and L5-S1. STENOSIS: Mild stenosis of the level of L1-L2. No definite root compression. Moderate stenosis at the level of L2-L3 bilateral narrowing of the foramina with root compression Moderate stenosis at the level of L3-L4 with bilateral narrowing of the foramina and the root robinson yenni PARASPINOUS SOFT TISSUES: Normal. IMPRESSION: Compression fracture of T12 and L1. Multilevel spinal canal stenosis and intervertebral foraminal narrowing with root compression. Reviewed, dictated and finalized at location A. IMPRESSION: Compression fracture of T12 and L1. Multilevel spinal canal stenosis and intervertebral foraminal narrowing with ro ot compression.
== END 2024-05-14 11:09 ==
LOC: MICIMG 11:09
PROVIDERS: PCP Pain Medicine Pain Medicine; Visit Provider Neurological Surgery
DX: M21.379 Foot drop, unspecified foot (principal); M48.54XA Collapsed vertebra, not elsewhere classified, thoracic region, initial encounter for fracture; M48.061 Spinal stenosis, lumbar region without neurogenic claudication
CPT/HCPCS: 72148

== ENCOUNTER 2024-09-14 12:41 | Outpatient (CLI) | payer MEDICARE, SELFPAY ==
--- NOTE | ~2024-09-14 | US_ITS ---
EXAMINATION: US soft tissue UE RT DATE: 09/14/2024 13:17 INDICATION: Effusion, right wrist. TECHNIQUE: Multiple grayscale and Doppler ultrasound images of the right upper limb were obtained. COMPARISON: None FINDINGS: In the dorsal, ulnar aspect of right wrist, there is tenosynovitis involving extensor carpi ulnaris. IMPRESSION: 1. Tenosynovitis involving the extensor carpi ulnaris. Consider wrist MRI. Reviewed, dictated and finalized at location A.
== END 2024-09-14 12:42 | disposition home or self-care (01) ==
LOC: MICIMG 12:42
PROVIDERS: PCP Nurse Practitioner Family; Visit Provider Nurse Practitioner Family
DX: M65.88 Other synovitis and tenosynovitis, other site (principal); M25.431 Effusion, right wrist
CPT/HCPCS: 76882

== ENCOUNTER 2024-11-03 14:11 | Outpatient (CLI) | payer MEDICARE, SELFPAY ==
--- NOTE | ~2024-11-03 | MR_ITS ---
EXAMINATION: MR wrist RT wo con DATE: 11/03/2024 15:20 INDICATION: Unspecified synovitis and tenosynovitis. Right wrist lump. TECHNIQUE: Magnetic resonance imaging (MRI) of the wrist was performed without intravenous contrast. Sequences performed include coronal T1-weighted FSE, coronal PD-weighted FS FSE, axial PD-weighted FS FSE, axial PD-weighted FSE, sagittal PD-weighted FSE, and sagittal PD-weighted FS FSE. COMPARISON: Ultrasound 09/14/2024. FINDINGS: Intrinsic ligaments: Scapholunate ligament and lunotriquetral ligament are intact. Triangular fibrocartilage complex (TFCC): There is a full-thickness perforation of triangular fibrocartilage. Extensor wrist: There is severe tenosynovitis involving extensor carpi ulnaris. A skin marker overlies this area. Flexor wrist: The flexor tendons are normal. Median nerve is normal. Guyon's canal: The ulnar nerve is normal. Bones/other: There is edema-like marrow signal intensity in the radial metaphysis, which may be stress reaction. T here is severe osteoarthritis of lunate-hamate joint. There is mild osteoarthritis of lunate-capitate joint. There is severe osteoarthritis of first carpometacarpal joint. IMPRESSION: 1. Severe tenosynovitis involving extensor carpi ulnaris. 2. Full-thickness perforation of the triangular fibrocartilage. 3. Polyarticular osteoarthritis. Reviewed, dictated and finalized at location A. [facility]
== END 2024-11-03 14:12 | disposition home or self-care (01) ==
LOC: MICIMG 14:11
PROVIDERS: PCP Nurse Practitioner Family; Visit Provider Nurse Practitioner Family
DX: M65.931 Unspecified synovitis and tenosynovitis, right forearm (principal); S63.591A Other specified sprain of right wrist, initial encounter; M19.031 Primary osteoarthritis, right wrist
CPT/HCPCS: 73221

== ENCOUNTER 2025-03-11 13:31 | Outpatient (CLI) | payer MEDICARE, SELFPAY ==
--- NOTE | ~2025-03-11 | XR_ITS ---
XR hip RT min 2V 03/11/2025 13:36 Indication: Right hip pain Procedure: 2 views right hip Comparison: CT dated 04/09/2023 Findings: Mild osteoarthritis of the right hip. There is a healed right pubic ramus fracture. There i s a possible acute/subacute left pubic ramus fracture. There are surgical changes consistent with fus ion at the lumbosacral junction. Impression: 1: Possible acute/subacute left pubic ramus fracture. 2: Mild osteoarthritis of the right hip. 3: Old healed right pubic ramus fracture with callus formation. Reviewed, dictated and finalized at location A. Impression: 1: Possible acute/subacute left pubic ramus fracture. 2: Mild osteoarthritis of the right hip. 3: Old healed right pubic ramus fracture with callus formation.
--- NOTE | ~2025-03-11 | CT_ITS ---
CT Scan of the Chest without Contrast: Clinical Indication: Lung cancer screening, nicotine dependence Technique: Contiguous sections were acquired throughout the chest without intravenous contrast. Dose reduction technique was used on this scan by utilizing automated exposure control and iterative recon struction technique. The dose-length product (DLP) was 59.72 mGy-cm. COMPARISON: 02/11/2024 Findings: There is no evidence of any significant mediastinal, hilar or axillary lymphadenopathy. The mediastin al soft tissues appear normal, aside from atherosclerotic vascular calcifications. There is no evidence of pleural or pericardial effusion. There is severe emphysema. There is focal peripheral scarring in the left upper lobe. No distinct pul monary nodule evident. Images through the upper abdomen reveal no abnormalities. Impression: Lung RADS 1: Negative. 12 month follow-up screening CT advised. Reviewed, dictated and finalized at location . Impression: Lung RADS 1: Negative. 12 month follow-up screening CT advised.
--- OUTSIDE RECORDS SUMMARY | 2025-03-11 13:17 | XMS_ITS | Clinical Summary ---
Author Organization [facility] Address [address] [place] [address] Care Team Providers Care Rag Sorter Name Role Phone AnnieAdriana Olaf MEJIA Primary Care Provider [phone] Allergies Active Allergy Reactions Criticality Noted Date Comments Atorvastatin Itching 01/21/2023 Cephalosporins Other (see comment) 08/03/2019 c diff Codeine Itching 10/18/2020 Seasonal Eyes Water & Itch 05/18/2021 Vancomycin Rash Low 08/03/2019 Medications albuterol sulfate HFA 108 (90 Base) MCG/ACT inhaler INHALE 2 PUFFS BY MOUTH EVERY 4 HOURS NEEDED FOR SHORTNESS OF BREATH 3 Active oxybutynin XL (DITROPAN-XL) 5 MG 24 hr tabletIndications :Urge incontinence Take 1 tablet by mouth once daily 90 tablet 3 Active furosemide (LASIX) 20 MG tablet Take 1 tablet (20 mg total) by mouth as needed (Take once daily NEEDED for leg swelling.). 3 Active predniSONE (DELTASONE) 20 MG tabletIndications :Bronchitis Take two tabs once daily for 3 days 6 tablet 3 Active clonazePAM (KLONOPIN) 0.5 MG tabletIndications :Anxiety Take 1 tablet (0.5 mg total) by mouth 2 (two) times daily as needed for Anxiety. 30 tablet 3 Active potassium chloride CR (K-TAB) 20 MEQ tabletIndications :Hypokalemia Take 1 tablet (20 mEq total) by mouth daily. 90 tablet 3 Active cyclobenzaprine (FLEXERIL) 10 MG tablet Take 1 tablet (10 mg total) by mouth 3 (three) times daily as needed. 3 Active oxyCODONE-acetami nophen (PERCOCET) 10-325 MG tablet Take 1 tablet by mouth every 8 (eight) hours as needed for Pain. Active oxyCODONE immediate release (ROXICODONE) 10 MG immediate release tablet Take 1 tablet (10 mg total) by mouth every 8 (eight) hours as needed. 3 Active OXYCONTIN 10 MG 12 hr abuse-deterrent tablet Take 1 tablet (10 mg total) by mouth nightly. 3 Active rivaroxaban (XARELTO) 20 MG Tab tablet Take 1 tablet (20 mg total) by mouth daily. 3 Active naloxone (NARCAN) 4 MG/0.1ML nasal spray 1 spray by Nasal route as needed. 3 Active olopatadine (PATANOL) 0.1 % ophthalmic solutionIndicatio ns:Contact allergy eyelid, unspecified laterality Place 1 drop into both eyes 2 (two) times daily. 5 mL 4 Active Neomycin-Polymyxi n-Dexameth 0.1 % OintmentIndicatio ns:Periorbital cellulitis of right eye,Contact allergy eyelid, unspecified laterality Apply ointment to both eyes every 4 yours for 7 days 3.5 g 4 Active pregabalin (LYRICA) 50 MG capsule Take 1 capsule (50 mg total) by mouth 2 (two) times daily. 4 Active valACYclovir (VALTREX) 500 MG tabletIndications :HSV infection take 1 tablet by mouth every day 90 tablet 1 4 Active TRELEGY ELLIPTA 100-62.5-25 MCG/ACT AEROSOL POWDER, BREATH ACTIVATED Inhale 1 puff into the lungs daily. 4 Active metoprolol succinate ER (TOPROL-XL) 100 MG 24 hr tabletIndications :Essential hypertension take 1 tablet by mouth every day in the morning 90 tablet 1 4 Active clotrimazole-beta methasone (LOTRISONE) creamIndications: Cellulitis of left lower extremity Apply topically 2 (two) times daily. APPLY TO AFFECTED AREA 45 g 1 4 Active escitalopram (LEXAPRO) 10 MG tabletIndications :Anxiety TAKE 1 TABLET BY MOUTH EVERY DAY 90 tablet 1 4 Active Active Problems Problem Noted Date Diagnosed Date Paroxysmal atrial fibrillation ([facility]) 02/04/2023 Chronic systolic heart failure ([facility]) 02/04/2023 PFO (patent foramen ovale) ([facility]) 10/02/2022 Hypoxia 10/02/2022 Panlobular emphysema ([facility]) Mild protein-calorie malnutrition ([facility]) 09/01 History of Legionnaire's disease 08/06/2019 Essential hypertension 08/03/2019 Chronic bilateral low back pain with bilateral s ciatica 08/03/2019 Anxiety 08/03/2019 Resolved Problems Problem Noted Date Diagnosed Date Resolved Date Cellulitis of lower limb 02/19/2022 Traumatic leg ulcer ([facility]) 02/19/2022 07/01/2023 Encounters Date Type Department Care Team Description 01/18/2025 Scan [facility] Scanned, [facility] from Last 3 Months Immunizations Name Administration Dates Next Due PFIZER COVID-19 BIVALENT (12 +) mRNA, LNP-S, PF, 30 MCG/0.3 ML DOSE 10/02/2022 Pneumococcal (Prevnar 20) 10/02/2022 Family History Medical History Relation Comments Heart Attack Father age 61 Aneurysm Mother in brain Hypertension Mother Relation Status Comments Father Mother Social History Tobacco Use Types Packs/Day Years Used Date Smoking Tobacco: Every Day Cigarettes 0.5 45.6 Started: 07/21/1979 Smokeless Tobacco: Never Tobacco Cessation:Ready to Q uit: No; Counseling Given: Yes Comments:1/2 PPD, not interested at this time, but plans to soon Alcohol Use Standard Drinks/Week Comments Yes 0 (1 standard drink = 0.6 oz pur e alcohol) 5-10 beers/week AUDIT-C Answer Date Recorded Frequency of Alcohol Consumption 2-3 times a wee k 08/03/2019 Average Number of Drinks 1 or 2 019 Frequency of Binge Drinking Not on file 01/2019 PHQ-2 Answer Date Recorded Patient Health Questionnaire-2 Score 2 07/22/2023 Comments No Sex and Gender Information Value Date Recorded Sex Assigned at Not on file Legal Sex Female 3:38 PM CDT Gender Identity Not on file Sexual Orientation Not on file Last Filed Vital Signs Vital Sign Reading Time Taken Comments Blood Pressure 128/66 07/21/2024 1:17 PM CDT Pulse 73 07/21/2024 1:17 PM CDT Temperature 36.3 C (97.3 F) 07/21/2024 1:17 PM CDT Respiratory Rate 16 07/21/2024 1:17 PM CDT Oxygen Saturation 92% 07/21/2024 1:17 PM CDT Inhaled Oxygen Concentration - - Weight 45.8 kg (101 lb) 07/21/2024 1:17 PM CDT Height 158.1 cm (5' 2.25 ) 07/21/2024 1:17 PM CD T Body Mass Index 18.33 07/21/2024 1:17 PM CDT Plan of Treatment Health Maintenance Due Date Last Done Comments Colorectal Cancer Screening Colonoscopy (10 Years) 1956 Hepatitis C 1974 DTaP, Tdap and Td Vaccines ( 1 - Tdap) 1975 Mammogram Screening 1996 Lung Cancer Screening 2006 Zoster Vaccines (1 of 2) 2006 RSV Immunization or 60+ Years (1 - Risk 60-74 years 1-dose series) 2016 Annual Medicare Wellness Visit 2021 COVID-19 Vaccine (3 - 2023-2 5 season) 2024 10/02/2022, 02/04/2021 PHQ-2 (Physician [facility]) 12/01/2024 07/22/2023 Dexa Scan (General) Completed 02/02/2018 Pneumococcal Vaccine: 65+ Years Completed 10/02/2022 Meningococcal B Vaccine Aged Out No l onger eligible based on patient's age to complete this topic Meningococcal Vaccine Aged Out No igor dorie eligible based on patient's age to complete this topic RSV Immunizations Under 20 Months Aged Out No longer eligible b ased on patient's age to complete this topic Insurance [facility] Care Teams Rag Sorter Relationship Specialty Start Date End Date Adriana Valencia APNP [address] [place] [address] PCP - General NURSE PRACTITIONER 08/03/19
--- OUTSIDE RECORDS SUMMARY | 2025-03-11 13:17 | XMS_ITS | Clinical Summary ---
Author Organization [facility] Address [address] [place] [address] Care Team Providers Care Senior Site Manager Name Role Phone Dave Edwards MD Primary Care Provider + Source Comments [facility],non-owned Affiliates and Associated Physician Practices is amultiple site organization consisting of ambulatory clinics and hospital sitesin [place] and [place]. This disclosure is being madepursuant to the Care Everywhere program and may not contain all information available regarding this patient. Last updated 18.[facility] Allergies Active Allergy Reactions Criticality Noted Date Comments Atorvastatin Itching 01/21/2023 Cephalosporins Other 08/03/2019 c diff Codeine Itching 10/18/2020 Ertapenem Unknown 08/21/2023 Seasonal Eye Discomfort 05/18/2021 Vancomycin Rash Medium 08/03/2019 Medications * Be aware that medications may not be up to date on this document. Alwaysverify current medications with the patient. Medication Sig Dispensed Refills Start Date End Date Status valACYclovir (VALTREX) 500 MG tablet valacyclovir 500 mg tablet 10/13/2020 Active pregabalin (LYRICA) 100 MG capsule Take 1 (one) capsule by mouth 2 times daily Patient taking only 50 mg May take day of surgery 01/09/2022 Active albuterol HFA (Proventil; Ventolin; Proair) 108 (90 Base) MCG/ACT inhaler Bring day of surgery 07/10/2023 Active potassium chloride ER (K-TAB) 20 MEQ tablet Take 1 (one) tablet by mouth once daily Hold 5 days prior to surgery 08/26/2023 Active olopatadine (Pataday) 0.1 % ophthalmic solution 1 (one) drop by Ophthalmic route 2 times daily May use day of surgery 12/04/2023 Active cyclobenzaprine (Flexeril) 10 MG tablet Take 1 (one) tablet by mouth 2 times daily as needed Hold day of surgery 09/16/2023 Active rivaroxaban (Xarelto) 20 MG tablet Take 1 (one) tablet by mouth once daily 10/31/2023 Active losartan (Cozaar) 25 MG tablet Take 1 (one) tablet by mouth once daily 30 tablet 11 03/04/2023 Active oxyCODONE, immediate release, (Roxicodone) 10 MG tabletIndications: 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) Take 1 (one) tablet by mouth every 4 hours as needed May take day of surgery 40 tablet 12/29/2023 Active Additional Information Patient not taking.Reported on 12/16/2024 doxycycline hyclate (Vibramycin) 100 MG capsule Take 1 (one) capsule by mouth once daily 12/04/2023 Active Trelegy Ellipta 100-62.5-25 MCG/ACT Inhale 1 (one) puff by mouth once daily Active escitalopram (Lexapro) 10 MG tablet Take 1 (one) tablet by mouth once daily Active metoprolol succinate XL 24hr (Toprol XL) 100 MG tablet Take 0.5 (one-half) tablet by mouth every morning 08/25/2024 Active sulfamethoxazole-t rimethoprim (Bactrim DS; Septra DS) 800-160 MG tablet Take 1 (one) tablet by mouth every 12 hours FOR 10 DAYS 08/30/2024 Active Active Problems Problem Noted Date Diagnosed Date Arthritis 09/03/2024 Spondylolisthesis of lumbar region 09/03/2024 Spinal stenosis of lumbar region 09/03/2024 Avascular necrosis of right humeral head 024 Anticoagulation management encounter 10/31/2023 Chronic systolic heart failure 02/04/2023 Paroxysmal atrial fibrillation 02/04/2023 Hypoxia 10/02/2022 Panlobular emphysema 10/02/2022 PFO (patent foramen ovale) 10/02/2022 Mild protein-calorie malnutrition 09/20/2022 Cellulitis of lower limb 02/19/2022 Traumatic leg ulcer 02/19/2022 History of Legionnaire's disease 08/06/2019 Anxiety 08/03/2019 Chronic bilateral low back pain with bilateral s ciatica 08/03/2019 Essential hypertension 08/03/2019 Encounters Date Type Department Care Team Description 12/16/2024 11:20 AM INTERNATIONAL COORDINATOR Office Visit [facility] - Orthopedic Surgery [address] [place] [phone] Diego Santos MD Status post reverse arthroplasty of right shoulder (Primary Dx); Coracoid impingement of right shoulder 12/16/2024 11:09 AM INTERNATIONAL COORDINATOR - 12/16/2024 11:59 PM INTERNATIONAL COORDINATOR Hospital Encounter [facility] - Radiology [address] [phone] Diego Santos MD Discharge Disposition: Home or Self Care 12/16/2024 Travel from Last 3 Months Social History Tobacco Use Types Packs/Day Years Used Date Smoking Tobacco: Every Day Cigarettes 0.5 25 Smokeless Tobacco: Never Tobacco Cessation:Ready to Q uit: Not Asked; Counseling Given: Not Answered Alcohol Use Standard Drinks/Week Comments Not Currently 0 (1 standard drink = 0.6 oz pur e alcohol) AUDIT-C Answer Date Recorded Q1: How often do you have a drink containing alcohol? 4 or more times a week 12/16/2023 Q2: How many drinks containi ng alcohol do you have on a typical day when you are drinking? 1 or 2 Q3: How often do you have si x or more drinks on one occasion? Never 12/16/2023 Overall Financial Resource Strain (CARDIA) Answe r Date Recorded How hard is it for you to pa y for the very basics like food, housing, medical care, and heating? Somewhat hard 12/16/2023 PHQ-2 Answer Date Recorded Patient Health Questionnaire-2 Score 0 09/03/2024 [facility] - Occupational Stress Questionnaire Answer Date Recorded Do you feel stress - tense, restless, nervous, or anxious, or unable to sleep at night because your mind is troubled all the time - these days? Not at all 12/16/2023 Hunger Vital Sign Answer Date Recorded Within the past 12 months, y ou worried that your food would run out before you got the money to buy more. Never true 12/16/19 24 Within the past 12 months, t he food you bought just didn't last and you didn't have money to get more. Never true 12/16/2023 PRAPARE - Transportation Answer Date Re corded In the past 12 months, has l ack of transportation kept you from medical appointments or from getting medications? No 12/01 In the past 12 months, has l ack of transportation kept you from meetings, work, or from getting things needed for daily living? No 12/16/2023 Housing Stability Vital Sign Answer Patrick e Recorded In the last 12 months, was t here a time when you were not able to pay the mortgage or rent on time? No 12/16/2023 In the last 12 months, how many places have you lived? 1 12/16/2023 In the last 12 months, was t here a time when you did not have a steady place to sleep or slept in a skilled nursing (including now)? No 12/16/2023 Sex and Gender Information Value Date Recorded Sex Assigned at Female 09/04/2023 2:48 PM CDT Gender Identity Not on file Sexual Orientation Not on file Last Filed Vital Signs Vital Sign Reading Time Taken Comments Blood Pressure 161/88 12/17/2023 3:43 PM INTERNATIONAL COORDINATOR Pulse 87 12/17/2023 3:43 PM INTERNATIONAL COORDINATOR Temperature 37.1 C (98.7 F) 12/17/2023 3:43 PM INTERNATIONAL COORDINATOR Respiratory Rate 18 12/17/2023 3:43 PM INTERNATIONAL COORDINATOR Oxygen Saturation 92% 12/17/2023 3:43 PM INTERNATIONAL COORDINATOR Inhaled Oxygen Concentration - - Weight 45.4 kg (100 lb) 12/16/2024 11:10 AM INTERNATIONAL COORDINATOR Height 154.9 cm (5' 1 ) 12/16/2024 11:10 AM INTERNATIONAL COORDINATOR Body Mass Index 18.89 12/16/2024 11:10 AM INTERNATIONAL COORDINATOR Plan of Treatment Upcoming Encounters Date Type Department Care Team (Late st Contact Info) Description 04/13/2025 1:00 PM CDT Office Visit [facility] - Orthopedic Surgery [address] [place] [phone] Lucho Carrizales, DO [address] [place] [id number] 12/16/2025 11:20 AM INTERNATIONAL COORDINATOR Office Visit [facility] - Orthopedic Surgery [address] [place] [phone] Diego Santos MD [address] [place] [address] Health Maintenance Due Date Last Done Comments BONE DENSITY TESTING 1955 COLOGUARD (AGES 45-75) - COL ON CA SCREENING 1956 COLON MONITORING 1956 COLONOSCOPY - COLON CA SCREENING 1956 CT COLONOGRAPHY - COLON CA SCREENING 1955 Colorectal Cancer Screening 1956 FIT - COLON CA SCREENING 1956 FLEX SIG - COLON CA SCREENING 1956 LIPID TESTING 1956 MAMMOGRAM 1956 HEPATITIS C SCREENING 04/27/1974 DTAP/TDAP/TD VACCINES (1 - Tdap) 1975 PNEUMOCOCCAL VACCINE 50+ (1 of 2 - PCV) 1975 ZOSTER VACCINE (1 of 2) 2006 Respiratory Syncytial Virus (RSV) Vaccine Pt: or over 60 yrs (1 - Risk 60-74 years 1-dose series) 2016 COVID-19 VACCINE (2 - 2023-2 5 season) 2024 10/02/2022 DEPRESSION SCREENING 12/01/2024 09/03/2024 MEDICARE AWV CALENDAR YEAR 2024 INFLUENZA VACCINE (Season Ended) 2025 HEPATITIS B VACCINE Aged Out No longe r eligible based on patient's age to complete this topic HIB VACCINE Aged Out No longer eligi ble based on patient's age to complete this topic HPV VACCINE Aged Out No longer eligi ble based on patient's age to complete this topic MENINGOCOCCAL (Group B) VACC INE SHARED DECISION-MAKING Aged Out No longer eligibl e based on patient's age to complete this topic MENINGOCOCCAL GROUPS A/C/Y/W VACCINE Aged Out No longer eligible b ased on patient's age to complete this topic Medical Devices Implanted Type Area Transmitter Engineer Device Identifier Shelf Expiration Date Model / Serial / Lot Bsplt Glnd 30mm Rsp Shldr P2 Strl Lf Implanted:Qty: 1 on 12/15/2023 by Diego Santos MD at [facility] Right: Shoulder [employer] 10/04/2029 508-32-204 / / [id number] Head Glnd 32mm Rsp -4mm Ofst Shldr Rtn Implanted:Qty: 1 on 12/15/2023 by Diego Santos MD at [facility] Right: Shoulder [employer] 10/30/2029 [id number] / / [id number] Screw 5mm 26mm Shldr Lck Rsp Glnd Bsplt Implanted:Qty: 1 on 12/15/2023 by Diego Santos MD at [facility] Right: Shoulder [employer] 08/19/2029 506-03-126 / / [id number] Screw 5mm 26mm Shldr Lck Rsp Glnd Bsplt Implanted:Qty: 1 on 12/15/2023 by Diego Santos MD at [facility] Right: Shoulder [employer] 09/11/2029 506-03-126 / / [id number] Screw 5mm 14mm Shldr Lck Rsp Glnd Bsplt Implanted:Qty: 1 on 12/15/2023 by Diego Santos MD at [facility] Right: Shoulder [employer] 10/09/2029 [id number] / / [id number] Stem Hum 48mm 6mm Sm Shl Implanted:Qty: 1 on 12/15/2023 by Diego Santos MD at [facility] Right: Shoulder [employer] 06/25/2029 533-06-048 / / [id number] Ins Sckt 32mm Altivate Rvrs Sm Ntrl Implanted:Qty: 1 on 12/15/2023 by Diego Santos MD at [facility] Right: Shoulder [employer] 06/20/2028 509-02-032 / / [id number] Explanted Type Area Transmitter Engineer Device Identifier Shelf Expiration Date Model / Serial / Lot Pin Fx 3in Fem Dist Smth Qrlse Explanted:Qty: 1 on 12/15/2023 by Diego Santos MD at [facility] Right: Shoulder [employer] [id number] / / Procedures Procedure Name Priority Date/Time Associated Diagnosis Comments NE DRAIN/INJECT LARGE JOINT/BURSA Routine 12/16/2024 12:28 PM INTERNATIONAL COORDINATOR Status post reverse arthroplasty of right shoulder XR SHOULDER RIGHT 2VW OR MORE Routine 12/16/2024 11:15 AM INTERNATIONAL COORDINATOR Status post reverse arthroplasty of right shoulder from Last 3 Months Results * NE DRAIN/INJECT LARGE JOINT/BURSA (12/16/2024 12:28 PM INTERNATIONAL COORDINATOR) Narrative Diego Santos MD - 12/16/2024 12:28 PM INTERNATIONAL COORDINATOR Diego Santos MD 12/16/2024 12:30 PM The site was marked and consent signed. A time-out was called to confirm the appropriate site. Under sterile conditions using alcohol prep the right shoulder was injected using a mixture of 2 mL 9 mg Celestone (6 mg/cc) and 3 mL of 1% Lidocaine through a anterior approach with a 22g needle. The patient tolerated the procedure well. No complications occurred. A bandaid was applied. Appropriate post-injection instructions were given and questions answered. Diego Santos MD PROCEDURE/MINOR SURG ICAL ORDERABLES * XR Shoulder Right 2Vw or More (12/16/2024 11:15 AM INTERNATIONAL COORDINATOR) Anatomical Region Laterality Modality Upper Extremity Computed Radiogr aphy 12/16/2024 11:2 4 AM INTERNATIONAL COORDINATOR Impressions 12/16/2024 12:11 PM INTERNATIONAL COORDINATOR IMPRESSION: Stable findings. Edited by Jessica Feldman on 12/16/2024 11:28 AM > Interpreting Provider: Luis M Starks MD on 12/16/2024 12:11 PM Narrative 12/16/2024 12:11 PM INTERNATIONAL COORDINATOR PROCEDURE: XR SHOULDER RIGHT 2VW OR MORE DATE/TIME OF EXAM: 12/16/2024 11:15 AM CLINICAL INFORMATION: None relevant/not provided if blank. Indication: Z96.611: Presence of right artificial shoulder joint. Additional History: Right shoulder pain. COMPARISON: 09/03/2024 FINDINGS: Four views of the right shoulder show right shoulder reversed arthroplasty in appropriate alignment. There is no acute fracture or subluxation. Procedure Note Luis M Starks MD - 12/16/2024 PROCEDURE: XR SHOULDER RIGHT 2VW OR MORE DATE/TIME OF EXAM: 12/16/2024 11:15 AM CLINICAL INFORMATION: None relevant/not provided if blank. Indication: Z96.611: Presence of right artificial shoulder joint. Additional History: Right shoulder pain. COMPARISON: 09/03/2024 FINDINGS: Four views of the right shoulder show right shoulder reversedarthroplasty in appropriate alignment. There is no acute fracture or subluxation. IMPRESSION: Stable findings. Edited by Jessica Feldman on 12/16/2024 11:28 AM > Interpreting Provider: Luis M Starks MD on 12/16/2024 12:11 PM Digeo Santos MD DIAGNOSTIC IMAGING O RDERABLES from Last 3 Months Advance Directives * Full Code (Latest Code Status on File) Date Activated Date Inactivated Comments 12/15/2023 2:14 PM 12/17/2023 6:19 PM Care Teams Senior Site Manager Relationship Specialty Start Date End Date Dave Edwards MD [phone] [address] PCP - General Family Medicine 09/03/24
--- OUTSIDE RECORDS SUMMARY | 2025-03-11 13:36 | XMS_ITS | Data Portability ---
Author Organization [facility], [employer] [facility] [place] [facility] Address [address] [place] [address] Care Team Providers Care Configuration Consultant Name Role Phone LEEANNE WALDEN Primary Care Provider Assessment Encounter Date Assessment Date Assessment LastModified by Organization Details LastModified Time 02/02/2018 02/02/2018 Pt had heavy bleeding with the passage of clots 1 week ago after intercourse. She spotted for 5 days after that. LMP was 17 years ago. Discussed possible etiologies including polyp, hyperplasia or fibroid. Pt advised to have an US and if it is nl, she would not need sampling since this only occurred once but if would need sampling should PMB recur of if lining is thickened. If there is a polyp, she will need a D&C. All questions answered. [email or web address] Not available 02/02/2018 10:40:41 Plan of Treatment Reminders Order Date Submit Date Provider Last Modified By Organization Details Last Modified Time Details Appointments None recorded. Lab pap, LB + HR HPV + reflex HPV (16+18) 2017 018 LUCILA [facility] ([facility]) , [address], [place], [address], 8 11:32:49 fecal occult blood, stool 2017 018 LUCILA In-Office Order, Internal Use Only DO Not Attach Compendium DO Not Attach Compendium, Do Not Delete/merge, [id number] 8 12:40:46 Referral colonoscopy referral 2017 Lora Terry MD, [address], [address], [place], [address], 8 10:57:23 Procedures None recorded. Surgeries None recorded. Imaging MAMMO, screening, digital, bilateral [address] [facility] ([facility]) - [place], [address], [address], [place], [address], 8 10:57:24 bone density [address] [facility] ([facility]) - [place], [address], [address], [place], [address], 8 10:57:23 US, pelvis, complete [address] [facility] ([facility]) - [place], [address], [address], [place], [address], 8 10:57:23 Medication Orders None recorded. Patient TargetsNo targets recorded. Patient Instructions Encounter Date Encounter Id Patient Instructions Last Modified By Organization Details Last Modified Time 07/03/2016 [id number] Instructed on us e of brace, match heel height on right, recheck 5 days as scheduled. [email or web address] Not available 07/03/2016 19:53:12 Reason for Referral Colonoscopy Referral for [employer] ecologic examination Referring Physician: Julia Green, [employer], Encounter Date: 02/02/2018 Results Created Date Observation Date Name Description Value Unit Range Abnormal Flag Note LastModifiedBy Organization Detail LastModifiedTime 08/12/20 16 08/12/2016 cultu re, wound culture and gram stain, aerobic, wound [id number] ORDER ED BY: [place] E: Wound left calf tissu e cultu re COLLE CTED: 08/12 15:35 ANTIB IOTIC S AT LEESA. 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 __ P.aer ugino sa ANTIB IOTIC S TAVO INTRP __ Amika racheal <=8 S Aztre onam 16 I Cefep benson 4 S Cefta zidim e 8 S Cipro floxa racheal 1 S Genta micin <=2 S Levof loxac in 2 S Merop enem 2 S Piper acill in/Ta zobac messina 16/4 S Tobra mycin <=2 S __ S=AMISHA CEPTI BLE I=INT ERMED IATE R=RES ISTAN T N/S=N ON-SHIPMAN SCEPT IBLE __ Not Available [facility] [address], [place], [address], 08/15/2016 08:41:46 02/03/20 18 02/04/2018 pap, LB + HR HPV + refle x HPV (16+1 8) Pap, liquid-based NILM normal DIAGN OSIS: Negat keagan for intra epith elial lesio n or malig esther ADEQU ACY: Satis facto ry for evalu ation / Endoc ervic al/tr ansfo rmati on zone compo nent prese nt. COMME NT: This Pap smear was manua lly scree shaun. SPECI MEN SOURC E: Pap and HPV DNA Genot yping 16,18 , CERVI TATE-E NDOCE RVICA L CLINI TATE INFOR MATIO N: Provi ded Diagn osis Codes : Z01.4 19,Z0 1.411 LMP: 1999 Cervi covag inal cytol ogy payal melendrez be consi dered a scree mattie proce dure subje ct to false negat shantel and false posit shantel. Resul ts are more relia ble when a satis facto ry sampl e is obtai shaun on a regul ar repet itive basis , and payal d be inter prete d toget her with past and curre nt clini tate data. ELECT DHARMESH Melendrez BY: Scree shaun By: Jorgito Canales iz, CT (ASCP ) Case Elect dharmesh melendrez 02/04 Not Available [facility] ([facility]) [address], [place], [address], 02/04/2018 11:32:49 02/03/20 18 02/04/2018 pap, LB + HR HPV + refle x HPV (16+1 8) HPV high risk DNA (non 16/18) Not Detect ed normal Not Available [facility] ([facility]) [address], [place], [address], 02/04/2018 11:32:49 02/03/20 18 02/04/2018 pap, LB + HR HPV + refle x HPV (16+1 8) HPV high risk DNA type 18 Not Detect ed normal Not Available [facility] ([facility]) [address], [place], [address], 02/04/2018 11:32:49 02/03/20 18 02/04/2018 pap, LB + HR HPV + refle x HPV (16+1 8) HPV high risk DNA type 16 Not Detect ed normal HPV High Risk DNA (Non 16/18 ) (1,2, 3,4,5 ) HPV High Risk DNA Type 18 (1,2, 3,4,5 ) HPV High Risk DNA Type 16 (1,2, 3,4,5 ) (1) The tatum (R) HPV test is FDA-c leare d for ThinP rep(R ) speci mens and detec ts genom ic HPV DNA in the polym orphi c L1 regio n in 14 subty pes: Type 16, Type 18, and other high risk types (31,3 3,35, 39,45 ,51,5 2,56, 58,59 ,66,6 8). The test has been modif ied and valid ated for use in SureP ath(T M) speci mens. (2) HPV types 16 and/o r 18 that were Not Detec racquel were undet ectab le or below the pre-s et thres hold. (3) The non-r epeat rate for HPV genot yping assay s varie s from 5 to 15%. In the NIL cytol ogy categ ory, there is a low posit keagan predi ctive value (PPV = 15-20 %) for CIN2+ with a posit keagan high risk HPV resul t. (4) This test was evalu ated and its perfo rmanc e spenser cteri stics deter mined by [facility]. It has not been clear ed or appro torrie by the U.S. Food and Drug Admin istra tion. The FDA has deter mined that such clear ance or appro lynn is not neces shima. [facility] is certi fied under the Clini tate Labor atory Impro vemen t Act of 1987 (CLIA ) as quali fied to perfo rm high compl exity clini tate testi ng. (5) Resul ts shoul d be inter prete d toget her with past and curre nt clini tate and labor atory data. Not Available [facility] ([facility]) [address], [place], [address], 02/04/2018 11:32:49 02/03/20 18 02/02/2018 fecal occul t blood , stool Occult Blood negati ve Not Available In-Office Order Internal Use Only DO Not Attach Compendium DO Not Attach Compendium, Do Not Delete/merge, [id number] 02/02/2018 10:35:32 02/05/20 18 02/04/2018 US, pelvi s, compl ete No observ ation record ed. [email or web address] [facility] [place] [address] [facility] [address], [place], [address], 02/06/2018 13:41:14 Result Notes None recorded. 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 Procedures Surgical History Date Name Laterality Status Provider Name and Address Organization Details Recorded Time 02/03/20 18 Date of Last Pap Smear completed Burt Ireland [facility] 02/02/2018 10:11:12 10/31/20 16 Orthopedic - Hip Replacement completed Julia Green MD [address], [place], [address], [facility] 02/02/2018 10:29:23 12/01/19 12 Ophthalmology - Cataract Surgery completed Julia Green MD [address], [place], [address], [facility] 02/02/2018 10:12:11 12/01/19 07 Hernia Repair completed Julia Green MD [address], [place], [address], [facility] 02/02/2018 10:09:10 12/01/19 03 Back / Spine Surgery completed Julia Green MD [address], [place], [address], [facility] 02/02/2018 10:10:46 12/01/18 86 Orthopedic Surgery completed Yane Wilkes [facility] 07/03/2016 16:50:34 12/01/18 76 Laparoscopy completed Julia Green MD [address], [place], [address], [facility] 02/02/2018 10:10:12 Imaging Results Imaging Date Name Status LastModified by Organiz ation Details LastModified Time 02/04/2018 US, pelvis, complete completed [email or web address] [facility] [place] [address], [place], [address], 02/06/2018 13:41:14 Procedure Notes None recorded. Medical Equipment None Reported. Allergies Allergen ID Allergen Name Allergen Category Reaction Reaction Severity Criticality Documentation Date Start Date Code Code System Note Provider Name and Address Organization Details Recorded Time 027457 codeine medicatio n Not available Not available Not available 07/03/2016 4670 RxNorm Not Available Not Available Not Available 757137 Medicinal product containin g cephalosp jolie and acting as antibacte rial agent (product) medicatio n Not available Not available Not available 07/03/2016 13202 9009 SNOMED Not Available Not Available Not Available 083790 vancomyci n medicatio n Not available Not available Not available 07/03/2016 46819 RxNorm Not Available Not Available Not Available 815371 Invanz medicatio n Not available Not available Not available 07/03/2016 42385 1 RxNorm Not Available Not Available Not Available Medications Name Sig Start Date Stop Date Status Note LastModified by Organization Details LastModified Time Santyl 250 unit/gram topical ointment 02/02 completed Not Available Not Available Not Available doxycycline hyclate 100 mg capsule TAKE 1 CAPSULE(S ) TWICE A DAY BY ORAL ROUTE DIRECTED FOR 10 DAYS. 02/02 completed Not Available Not Available Not Available azithromyci n 250 mg tablet 02/02 completed Not Available Not Available Not Available hydrocodone 5 mg-acetamin ophen 325 mg tablet 02/02 completed Not Available Not Available Not Available clonazepam 0.5 mg tablet active Not Available Not Available Not Available amlodipine 5 mg tablet active Not Available Not Available Not Available valacyclovi r 500 mg tablet active Not Available Not Available Not Available ciprofloxac in 500 mg tablet 02/02 completed Not Available Not Available Not Available lidocaine-p rilocaine 2.5 %-2.5 % topical cream active Not Available Not Available Not Available oxycodone 15 mg tablet 02/02 completed Not Available Not Available Not Available amlodipine 10 mg tablet active Not Available Not Available Not Available mupirocin calcium 2 % topical cream 02/02 completed Not Available Not Available Not Available gabapentin 300 mg capsule 02/02 completed Not Available Not Available Not Available furosemide 20 mg tablet 02/02 completed Not Available Not Available Not Available methylpredn isolone 4 mg tablets in a dose pack 02/02 completed Not Available Not Available Not Available fluoxetine 20 mg capsule active Not Available Not Available Not Available doxycycline hyclate 100 mg tablet 02/02 completed Not Available Not Available Not Available amoxicillin 875 mg-potassiu m clavulanate 125 mg tablet active Not Available Not Available Not Available oxycodone 5 mg tablet 02/02 completed Not Available Not Available Not Available oxycodone 10 mg tablet active Not Available Not Available Not Available Belbuca 600 mcg buccal film active Not Available Not Available Not Available Belbuca 150 mcg buccal film 02/02 completed Not Available Not Available Not Available Belbuca 75 mcg buccal film 02/02 completed Not Available Not Available Not Available Vitals Date Recorded Body height Body mass index (BMI) Body weight Heart rate Systolic blood pressure Diastolic blood pressure Provider Name and Address Organization Details Last Updated DateTime 8 162.56 cm 17.3 kg/m2 36938.8 3 g 90 /min 131 mm[Hg] 79 mm[Hg] Burt Ireland [facility] 8 10:12:20 Date Recorded Body mass index (BMI) Body weight Body height Provider Name and Address Organization Details Last Updated DateTime 07/03/2016 18.9 kg/m2 41704.1607 g 162.56 cm Yane Wilkes [facility] 07/03/2016 16:50:34 Social History Question Answer Notes LastModified by Organizat ion Details LastModified Time Tobacco Smoking Status Current Every Day Smoker 10/DAY FOR 25 YRS [facility] 07/[facility]/2016 16:50:34 How Often Do You Have A DRINK Containing ALCOHOL? 4 Or More Times A Week 4/WK BEERS OR GLASSES OF WINE [email or web address] Information not available 07/03/2016 Marital Status [email or web address] Informatio n not available 07/03/2016 What Was The Date Of Your Most Recent Tobacco Screening? 02/02/2018 Information not available 06/25/2019 Sex: Unknown Functional Status None recorded. Mental Status None recorded. Family History Relationship Description Onset Age of this Age Resolved Age Notes LastModified by Organization Details LastModified Time Mother Hypertensive disorder [email or web address] Not available 2017 10:07:20 Mother Intracranial aneurysm 54 [email or web address] Not available 2017 10:08:24 Father Myocardial infarction 62 [email or web address] Not available 02/02 10:07:08 Father Hypertensive disorder lmaciulla Not available 2017 10:07:27 Medical History Condition Response Hypertension (high blood pressure) Y back/neck pain Y Other Y Arthritis Y Gynecological History Statement/Question Response Infertility Y Date of LMP 12/01/1999 STIs/STDs N HPV Vaccine N Age at Menarche 14 Current Control Method None Sexual Orientation Heterosexual If Post Menopausal, Age at Menopause 45 Date of HPV testing 02/02/2018 Sexually Active? Y Date of Last Pap Smear 02/02/2018 Sexual Problems? N Obstetrics History GPAL:G 0 P 0 0 0 0 Past Encounters Encounter ID Performer Location Encounter Start Date Encounter Closed Date Diagnosis/Indication Diagnosis SNOMED-CT Code Diagnosis ICD10 Code Diagnosis Note [id number] Aaron Verduzco DPM [facility] [place] [facility]* [address] [place] [address] 07/03/2016 16:23:38 07/03/2016 16:50:45 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 246903712 M24.573 left Traumatic leg ulcer 2011 17847 L97.909 [id number] Julia Green MD [facility] [place] [facility] [address] [place] [address] 02/02/2018 09:51:30 02/02/2018 10:57:21 Gynecologic examination 05184181 Z01.419 Z01.411 Postmenopa usal bleeding 75972001 N95.0 Patient advised to RTC 1 week after U/S Health Concerns Section Related Observation LastModified by Organization Detai ls LastModified Time None Recorded Concern Status LastModified by Organization Details LastModified Time None Recorded Advance Directives Directive None Recorded Payers Encounter Date Sequence Insurance Name Policy Number Policy Gary Covered Member ID Gary Member ID Guarantor Name 07/03/2016 1 [employer] (POS) [id number] [place] [id number] [place] 02/02/2018 1 [employer] (POS) [id number] [place] [id number] [place] Notes Date Note Type Note Provider Name and Address Organization Details Recorded Time 07/03/2016 text/html dispense short-l eg pneumatic boot Aaron Verduzco DPM [address], [place], [address], [facility] 07/03/2016 19:53:19 02/02/2018 text/html Annual [employer] Post-MenopausalRep orted bypatient.Wellness History:feels well with no/few symptoms; no change in interval history; healthy diet; exercises on a regular basis; good physical condition; healthy weight; does not use tobacco products; no alcohol/does not consume alcohol in excess; normal sleep; uses seatbelts; uses sunscreen/protecti on Psychological symptoms:normal mood; no depression; no anxiety; no PMDD [employer] Risk History:no gynecologic complaints; no risk factor for cervical cancer; no history of RACHEAL II/III; no abnormal pap smears; at least three pap smears in past 7 years; no SALLIE exposure Menopausal Symptoms:no menopausal symptoms;inadequac y of lubrication of vaginal mucosa Vaginal Bleeding:history of menopause having occurred;bleeding occurs after sex;post menopausal bleeding(after intercourse passed clots fo 10 hours); odor Urinary Symptoms:no hematuria; no incontinence; no nocturia; no urinary frequency Vulva:no genital lesion; no vulvar atrophy Vagina:normal vaginal discharge; no vaginal atrophy Breast:no breast lump; no nipple discharge; no breast pain Sexual Complaints:sexual complaints;pain during intercourse Preventive Measures:needs to schedule mammogram; needs to schedule colonoscopy; needs to schedule bone density Julia Green MD [address], [place], [address], [facility] 02/02/2018 11:02:51 OBGyn Episode No OBEpisode recorded.
[2025-03-11 15:08] LABS: Hematocrit 44.4 % (37.0-47.0); Hemoglobin 14.7 g/dL (12.0-15.0); Mean Corpuscular HGB Conc 33.1 g/dl (32-36); Mean Corpuscular Hemoglobin 30.9 pg (26-34); Mean Corpuscular Volume 93.3 fl (80-100); Mean Platelet Volume 10.5 fl (7.4-10.4); Platelet Count Result 298 k/mm3 (150-375); Red Blood Count 4.76 M/mm3 (4.2-5.4); Red Cell Distribution Width 14.1 % (11.5-14.5); White Blood Count 7.3 K/mm3 (4.5-10.0)
[2025-03-11 15:19] LABS: Alanine Aminotransferase 71 U/L (6-35); Alkaline Phosphatase 191 U/L (38-126); Anion Gap 6 mmol/L (4-12); Aspartate Amino Transferase 52 U/L (14-36); Bilirubin,Total 0.4 mg/dL (0.2-1.3); Blood Urea Nitrogen 28 mg/dL (7-17); Calcium 8.7 mg/dL (8.4-10.2); Carbon Dioxide 27 mmol/L (22-30); Chloride 103 mmol/L (98-107); Cholesterol 161 mg/dL (0-200); Estimated Glomerular Filt Rate 39; Glucose 84 mg/dL (65-110); HDL Direct 58 mg/dL; Potassium 4.9 mmol/L (3.4-5.0); Sodium 136 mmol/L (137-145); Triglycerides 73 mg/dL (<150)
[2025-03-11 15:23] LABS: Iron 115 ug/dL (37-170)
[2025-03-11 15:30] LABS: LDL Cholesterol Direct 81 mg/dL
[2025-03-11 15:33] LABS: Percent Iron Saturation 34 % (20-50)
[2025-03-11 15:53] LABS: Thyroid Stimulating Hormone Reflex 0.966 uIU/mL (0.465-4.68)
== END 2025-03-11 13:32 | disposition home or self-care (01) ==
PROVIDERS: PCP Nurse Practitioner Family; Visit Provider Physician Assistant
DX: J44.9 Chronic obstructive pulmonary disease, unspecified (principal); D50.9 Iron deficiency anemia, unspecified; G89.29 Other chronic pain; M25.551 Pain in right hip; Z87.891 Personal history of nicotine dependence; D64.9 Anemia, unspecified; I10 Essential (primary) hypertension; I50.9 Heart failure, unspecified; I73.9 Peripheral vascular disease, unspecified; M54.9 Dorsalgia, unspecified; M16.11 Unilateral primary osteoarthritis, right hip
CPT/HCPCS: 36415; 71271; 73502; 80053; 80061; 82607; 83540; 83550; 84443; 85027

== ENCOUNTER 2025-05-30 14:20 | Outpatient (CLI) | payer MEDICARE, SELFPAY ==
--- OUTSIDE RECORDS SUMMARY | 2025-05-30 14:34 | XMS_ITS | Clinical Summary ---
Author Organization [facility] Address [address] [place] [address] Care Team Providers Care Tappet Adjuster Name Role Phone AnnieAdriana Olaf MEJIA Primary Care Provider [phone] Allergies Active Allergy Reactions Criticality Noted Date [...] Noted Date Diagnosed Date Paroxysmal atrial fibrillation ([facility]) 02/04/2023 Chronic systolic heart failure ([facility]) 02/04/2023 PFO (patent foramen ovale) ([facility]) 10/02/2022 Hypoxia 10/02/2022 Panlobular emphysema ([facility]) Mild protein-calorie malnutrition ([facility]) 09/01 History of Legionnaire's disease 08/06/2019 Essential hypertension 08/03/2019 Chronic bilateral low back pain with bilateral s ciatica 08/03/2019 Anxiety 08/03/2019 Resolved Problems Problem Noted Date Diagnosed Date Resolved Date Cellulitis of lower limb 02/19/2022 Traumatic leg ulcer ([facility]) 02/19/2022 07/01/2023 Encounters Date Type Department Care Team Description 04/04/2025 Scan [facility] Scanned, Doc [facility] 03/30/2025 Scan [facility] Scanned, Doc Med Group from Last 3 Months Immunizations Immunization Administration Dates Next Due PFIZER COVID-19 BIVALENT (12 +) mRNA, LNP-S, PF, 30 MCG/0.3 ML DOSE 10/02/2022 Pneumococcal (Prevnar 20) 10/02/2022 Family History Medical History Relation Comments Heart Attack Father age 61 Aneurysm Mother in brain Hypertension Mother Relation Status Comments Father Mother Social History Tobacco Use Types Packs/Day Years Used Date Smoking Tobacco: Every Day Cigarettes 0.5 45.9 Started: 07/21/1979 Smokeless Tobacco: Never Tobacco Cessation:Ready [...] 1:17 PM CDT Height 158.1 cm (5' 2.25) 07/21/2024 1:17 PM CD T Body Mass [...] 5 season) 2024 10/02/2022, 02/04/2021 PHQ-2 (Physician [place]) 12/01/2024 07/22/2023 Dexa Scan (General) Completed 02/02/2018 Pneumococcal Vaccine: 50+ Years Completed 10/02/2022 Meningococcal B Vaccine Aged Out No l onger eligible based on patient's age to complete this topic Meningococcal Vaccine Aged Out No igor dorie eligible based on patient's age to complete this topic RSV Immunizations Under 20 Months Aged Out No longer eligible b ased on patient's age to complete this topic Insurance [facility] Care Teams Tappet Adjuster Relationship Specialty Start Date End Date Adriana Valencia APNP [address] [place] [id number] PCP - General NURSE PRACTITIONER 08/03/19
--- OUTSIDE RECORDS SUMMARY | 2025-05-30 14:34 | XMS_ITS | Data Portability ---
Author Organization [facility], [facility] [employer] [facility] Address [address] [place] [address] Care Team Providers Care Station Superintendent Name Role Phone LEEANNE WALDEN Primary Care Provider [phone] Assessment Encounter Date Assessment Date Assessment LastModified [...] reflex HPV (16+18) 2017 018 LUCILA [facility] ([facility]) , [address], [place], [address], 8 11:32:49 fecal occult blood, stool 2017 018 LUCILA In-Office Order, Internal Use Only DO Not Attach Compendium DO Not Attach Compendium, Do Not Delete/merge, [id number] 8 12:40:46 Referral colonoscopy referral 2017 Lora Claire Mara MD, [address], [place], [address], 8 10:57:23 Procedures None recorded. Surgeries None recorded. Imaging MAMMO, screening, digital, bilateral 2017 018 [email or web address] [facility] ([facility]) - [place], [address], [place], [address], 8 10:57:24 bone density [address] [facility] ([facility]) - [place], [address], [address], [place], [address], 8 10:57:23 US, pelvis, complete [address] [facility] ([facility]) - [place], [address], [place], [address], 8 10:57:23 Medication Orders None recorded. Patient TargetsNo targets recorded. Patient Instructions Encounter Date Encounter Id Patient Instructions Last Modified By Organization Details Last Modified Time 07/03/2016 [id number] Instructed on us e of brace, match heel height on right, recheck 5 days as scheduled. [email or web address] Not available 07/03/2016 19:53:12 Reason for Referral Colonoscopy Referral for Health Information Clerk ecologic examination Referring Physician: Julia Green, SHUCKER, Encounter Date: 02/02/2018 Results Created Date Observation [...] N/S=N ON-SHIPMAN SCEPT IBLE __ Not Available [facility] [address], [place], [address], 08/15/2016 08:41:46 02/03/20 18 02/04/2018 pap, LB [...] ar repet itive basis , and payal melendrez be inter prete d toget her with past and curre nt clini tate data. ELECT DHARMESH Melendrez BY: Scree shaun By: Jorgito Canales iz, CT (ASCP ) Case Elect dharmesh melendrez 02/04 Not Available [facility] ([facility]) [address], [place], [address], 02/04/2018 11:32:49 02/03/20 18 02/04/2018 pap, LB + HR HPV + refle x HPV (16+1 8) HPV high risk DNA (non 16/18) Not Detect ed normal Not Available [facility] ([facility]) [address], [place], [address], 02/04/2018 11:32:49 02/03/20 18 02/04/2018 pap, LB + HR HPV + refle x HPV (16+1 8) HPV high risk DNA type 18 Not Detect ed normal Not Available [facility] ([facility]) [address], [place], [address], 02/04/2018 11:32:49 02/03/20 18 02/04/2018 pap, LB [...] s from 5 to 15%. In the NILM cytol ogy categ ory, there is a low posit keagan predi ctive value (PPV = 15-20 %) for CIN2+ with a posit keagan high risk HPV resul t. (4) This test was evalu ated and its perfo rmanc e spenser cteri stics deter mined by [facility]. It has not been clear ed or appro torrie by the U.S. Food and Drug Admin istra tion. The FDA has deter mined that such clear ance or appro lynn is not neces shima. [facility] is certi fied under the Clini tate Labor atory Impro vemen t Act of 1987 (CLIA ) as quali fied to perfo rm high compl exity clini tate testi ng. (5) Resul ts shoul d be inter prete d toget her with past and curre nt clini tate and labor atory data. Not Available [facility] ([facility]) [address], [place], [address], 02/04/2018 11:32:49 02/03/20 18 02/02/2018 fecal occul t blood , stool Occult Blood negati ve Not Available In-Office Order Internal Use Only DO Not Attach Compendium DO Not Attach Compendium, Do Not Delete/merge, [id number] 02/02/2018 10:35:32 02/05/20 18 02/04/2018 US, pelvi s, compl ete No observ ation record ed. [email or web address] [facility] [place] [address] [facility] [address], [place], [address], 02/06/2018 13:41:14 Result Notes None recorded. 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 Procedures Surgical History Date Name Laterality Status Provider Name and Address Organization Details Recorded Time 02/03/20 18 Date of Last Pap Smear completed Burt Ireland [facility] 02/02/2018 10:11:12 10/31/20 16 Orthopedic - Hip Replacement completed Julia Green MD [address], [place], [place], [address] [place] [address], [facility] 02/02/2018 10:29:23 12/01/19 12 Ophthalmology - Cataract Surgery completed Julia Green MD [address], [place], [address] [place] [address], [facility] 02/02/2018 10:12:11 12/01/19 07 Hernia Repair completed Julia Green MD [address], [place], [address] [place] [address], [facility] 02/02/2018 10:09:10 12/01/19 03 Back / Spine Surgery completed Julia Green MD [address], [place], [address] [place] [address], [facility] 02/02/2018 10:10:46 12/01/18 86 Orthopedic Surgery completed Yane Wilkes [facility] 07/03/2016 16:50:34 12/01/18 76 Laparoscopy completed Julia Green MD [address], [place], [address] [place] [address], [facility] 02/02/2018 10:10:12 Imaging Results None recorded. Procedure Notes None recorded. Medical Equipment None Reported. Allergies Allergen ID Allergen Name Allergen Category Reaction Reaction Severity Criticality Documentation Date Start Date Code Code System Note Provider Name and Address Organization Details Recorded Time 149327 codeine medicatio n Not available Not available Not available 07/03/2016 2670 [facility] 6 16:50:34 006595 Medicinal product containin g cephalosp jolie and acting as antibacte rial agent (product) medicatio n Not available Not available Not available 07/03/2016 85341 9009 [facility]ED [facility] 6 16:50:34 067999 vancomyci n medicatio n Not available Not available Not available 07/03/2016 37567 RxNorm Yane Wilkes null, [facility] 6 16:50:34 706002 [facility] medicatio n Not available Not available Not available 07/03/2016 10653 1 RxNorm Yane Wilkes null, [facility] 6 16:50:34 Medications Name Sig Start Date Stop Date [...] Updated DateTime 8 162.56 cm 17.3 kg/m2 41007.8 3 g 90 /min 131 mm[Hg] 79 mm[Hg] Burt Ireland [facility] 8 10:12:20 Date Recorded Body mass index (BMI) Body weight Body height Provider Name and Address Organization Details Last Updated DateTime 07/03/2016 18.9 kg/m2 11124.1607 g 162.56 cm Yane Wilkes [facility] 07/03/2016 16:50:34 Social History Question Answer Notes LastModified by Organizat ion Details LastModified Time Tobacco Smoking Status Current Every Day Smoker 10/DAY FOR 25 YRS Yane Wilkes [facility] 07/03/2016 16:50:34 How Often Do You Have [...] SNOMED-CT Code Diagnosis ICD10 Code Diagnosis Note [id number] Aaron Verduzco DPM [facility] [place] [facility]* [address] [place] [address] 07/03/2016 16:23:38 07/03/2016 16:50:45 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 994610132 M24.573 left Traumatic leg ulcer 2011 70061 L97.909 [id number] Julia Green MD [facility] [place] [facility] [address] [place] [address] 02/02/2018 09:51:30 02/02/2018 10:57:21 Gynecologic examination 54164934 Z01.419 Z01.411 Postmenopa usal bleeding 57020379 N95.0 Patient advised to RTC 1 week after [place] Health Concerns Section Related Observation LastModified by Organization Detai ls LastModified Time None Recorded Concern Status LastModified by Organization Details LastModified Time None Recorded Advance Directives Directive None Recorded Payers Insurance Date Sequence Insurance Name Policy Number Policy Gary Covered Member ID Gary Member ID Guarantor Name 02/02/2018 1 [employer] (POS) [id number] [place] [id number] [place] Notes Date Note Type Note Provider Name and Address Organization Details Recorded Time 07/03/2016 text/html dispense short-l eg pneumatic boot Aaron Verduzco DPM [address], [place], [address], [facility] 07/03/2016 19:53:19 02/02/2018 text/html Annual Health Information Clerk Post-MenopausalRep orted bypatient.Wellness History:feels well with no/few symptoms; no change in interval history; healthy diet; exercises on a regular basis; good physical condition; healthy weight; does not use tobacco products; no alcohol/does not consume alcohol in excess; normal sleep; uses seatbelts; uses sunscreen/protecti on Psychological symptoms:normal mood; no depression; no anxiety; no PMDD Health Information Clerk Risk History:no gynecologic complaints; no risk factor [...] Green MD [address], [place], [address], [facility] 02/02/2018 11:02:51 OBGyn Episode No OBEpisode recorded.
--- OUTSIDE RECORDS SUMMARY | 2025-05-30 14:34 | XMS_ITS | Clinical Summary ---
Author Organization [facility] Address [address] [address] Care Team Providers Care Hydraulic Pile Hammer Operator Name Role Phone Dave Edwards MD Primary Care Provider + Source Comments [facility],non-owned Affiliates and Associated Physician Practices is amultiple site organization consisting of ambulatory clinics and hospital sitesin [place], [place], [place] and [place]. This disclosure is being madepursuant to the Care Everywhere program and may not contain all information available regarding this patient. Last updated 18.[facility] Allergies Active Allergy Reactions Criticality Noted Date Comments Atorvastatin Itching 01/21/2023 Cephalosporins Other 08/03/2019 c diff Codeine Itching 10/18/2020 Ertapenem Unknown 08/21/2023 Seasonal Eye Discomfort 05/18/2021 Vancomycin Rash Medium 08/03/2019 Medications * Be aware that medications may not be up to date on this document. Alwaysverify current medications with the patient. valACYclovir (VALTREX) 500 MG tablet valacyclovir 500 mg tablet 10/13/20 20 Active pregabalin (LYRICA) 100 MG capsule Take 1 (one) capsule by mouth 2 times daily Patient taking only 50 mg May take day of surgery 01/09/20 22 Active albuterol HFA (Proventil; Ventolin; Proair) 108 (90 Base) MCG/ACT inhaler Bring day of surgery 07/10/20 23 Active potassium chloride ER (K-TAB) 20 MEQ tablet Take 1 (one) tablet by mouth once daily Hold 5 days prior to surgery 08/26/20 23 Active olopatadine (Pataday) 0.1 % ophthalmic solution 1 (one) drop by Ophthalmic route 2 times daily May use day of surgery 12/04/19 24 Active cyclobenzaprine (Flexeril) 10 MG tablet Take 1 (one) tablet by mouth 2 times daily as needed Hold day of surgery 09/16/20 23 Active rivaroxaban (Xarelto) 20 MG tablet Take 1 (one) tablet by mouth once daily 10/31/20 23 Active losartan (Cozaar) 25 MG tablet Take 1 (one) tablet by mouth once daily 30 tablet 11 03/04/20 23 Active oxyCODONE, immediate release, (Roxicodone) 10 MG tabletIndications: 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) Take 1 (one) tablet by mouth every 4 hours as needed May take day of surgery 40 tablet 12/29/19 24 Active Additional Information Patient not taking.Reported on 04/13/2025 doxycycline hyclate (Vibramycin) 100 MG capsule Take 1 (one) capsule by mouth once daily 12/04/19 24 Active Trelegy Ellipta 100-62.5-25 MCG/ACT Inhale 1 (one) puff by mouth once daily Active escitalopram (Lexapro) 10 MG tablet Take 1 (one) tablet by mouth once daily Active metoprolol succinate XL 24hr (Toprol XL) 100 MG tablet Take 0.5 (one-half) tablet by mouth every morning 08/25/20 24 Active sulfamethoxazole-t rimethoprim (Bactrim DS; Septra DS) 800-160 MG tablet Take 1 (one) tablet by mouth every 12 hours FOR 10 DAYS 08/30/20 24 Active diclofenac sodium EC (Voltaren) 50 MG tablet Take 1 (one) tablet by mouth 3 times daily 02/17/20 25 Active DULoxetine (Cymbalta) 30 MG capsule Take 1 (one) capsule by mouth once daily 03/07/20 25 Active diclofenac sodium (Voltaren) 1 % gelIndications:Ost eoarthritis of right hip, unspecified osteoarthritis type Apply 4 (four) g to affected area 4 times daily 100 g 5 04/13/20 25 Active lidocaine (Lidoderm) 5 % patchIndications:O steoarthritis of right hip, unspecified osteoarthritis type Apply 1 (one) patch to skin once daily Apply patch to most painful area and remove after 12 hours. May reapply a new patch 12 hours later. 30 patch 04/13/20 25 Active Active Problems Problem Noted Date Diagnosed [...] Encounters Date Type Department Care Team Description 05/23/2025 Telephone [facility] - Orthopedic Surgery [address] [place], [place] [address] Em Gardner RN Question 05/10/2025 Orders Only [facility] - Orthopedic Surgery [address] [place] [address] Em Gardner, LAVERNE Coracoid impingement of right shoulder ; Status post reverse arthroplasty of right shoulder 05/09/2025 Telephone [facility] - Orthopedic Surgery [address] [place] [address] Em Gardner, LAVERNE Question 05/06/2025 Telephone [facility] - Orthopedic Surgery [address] [place] [address] Em Gardner, LAVERNE Question 05/04/2025 Telephone [facility] - Orthopedic Surgery [address] [place] [address] Em Gardner, RN Appointment 04/13/2025 1:00 PM CDT Office Visit [facility] - Orthopedic Surgery [address] [place] [address] Lucho Carrizales, DO Osteoarthritis of right hip, unspecified osteoarthritis type (Primary Dx); Pain of right hip 04/13/2025 12:51 PM CDT - 04/13/2025 11:59 PM CDT Hospital Encounter [facility] - [facility] [address] [id number] Lucho Carrizales, DO Discharge Disposition: Home or Self Care 04/13/2025 Travel 03/24/2025 Orders Only [facility] - Orthopedic Surgery [address] [place] [address] Lucho Carrizales, DO Pain of right hip from Last 3 Months Social History Tobacco [...] Date Recorded Patient Health Questionnaire-2 Score 2 04/13/2025 [facility] [place] [facility] Occupat ional Health - Occupational Stress [...] place to sleep or slept in a jail (including now)? No 12/16/2023 Comments No Sex and Gender Information Value Date Recorded Sex Assigned at Female 09/04/2023 2:48 PM CDT Legal Sex Female 9:19 AM CDT Gender Identity Not on file Sexual Orientation Not on file Last Filed Vital Signs Vital Sign Reading Time Taken Comments Blood Pressure 161/88 12/17/2023 3:43 PM SECURITY TEAM LEAD Pulse 87 12/17/2023 3:43 PM SECURITY TEAM LEAD Temperature 37.1 C (98.7 F) 12/17/2023 3:43 PM SECURITY TEAM LEAD Respiratory Rate 18 12/17/2023 3:43 PM SECURITY TEAM LEAD Oxygen Saturation 92% 12/17/2023 3:43 PM SECURITY TEAM LEAD Inhaled Oxygen Concentration - - Weight 45.4 kg (100 lb) 04/13/2025 12:51 PM CDT Height 154.9 cm (5' 1) 04/13/2025 12:51 PM CDT Body Mass Index 18.89 04/13/2025 12:51 PM CDT Plan of Treatment Upcoming Encounters Date Type Department Care Team (Late st Contact Info) Description 06/14/2025 9:20 AM CDT Office Visit [facility] - Orthopedic Surgery [address] [place] [phone] Diego Santos MD [address] [place] [id number] 12/16/2025 11:20 AM SECURITY TEAM LEAD Office Visit [facility] - Orthopedic Surgery [address] [place] [address] Diego Santos MD [address] [place] [address] Health Maintenance Due Date Last Done Comments BONE DENSITY TESTING 1955 COLOGUARD (AGES 45-75) - COL ON CA SCREENING 1956 COLON MONITORING 1956 COLONOSCOPY - COLON CA SCREENING 1956 CT COLONOGRAPHY - COLON CA SCREENING 1955 Colorectal Cancer Screening 1956 FIT - COLON CA SCREENING 1956 FLEX SIG - COLON CA SCREENING 1956 MAMMOGRAM 1956 HEPATITIS C SCREENING 04/27/1974 DTAP/TDAP/TD VACCINES (1 - Tdap) 1975 PNEUMOCOCCAL VACCINE 50+ (1 of 2 - PCV) 1975 ZOSTER VACCINE (1 of 2) 2006 Respiratory Syncytial Virus (RSV) Vaccine Pt: or over 60 yrs (1 - Risk 60-74 years 1-dose series) 2016 COVID-19 VACCINE (2 - 2023-2 5 season) 2024 10/02/2022 MEDICARE AWV CALENDAR YEAR 2024 INFLUENZA VACCINE (Season Ended) 2025 LIPID TESTING 03/30/2030 03/30/2025 DEPRESSION SCREENING Completed 04/13/2025, 09/03/2024 HEPATITIS B VACCINE Aged Out No longe r eligible based on patient's age to complete this topic HIB VACCINE Aged Out No longer eligi ble based on patient's age to complete this topic HPV VACCINE Aged Out No longer eligi ble based on patient's age to complete this topic MENINGOCOCCAL (Group B) VACCINE SHARED DECISION-MAKING Aged Out No longer eligible based on patient's age to complete this topic MENINGOCOCCAL GROUPS A/C/Y/W VACCINE Aged Out No longer eligible b ased on patient's age to complete this topic Medical Devices Implanted Type Area Knowledge Architect Device Identifier Shelf Expiration Date Model / Serial / Lot Bsplt Glnd 30mm Rsp Shldr P2 Strl Lf Implanted:Qty: 1 on 12/15/2023 by Diego Santos MD at [facility] Right: Shoulder [employer] 10/04/2029 508-32-204 / / [id number] Head Glnd 32mm Rsp -4mm Ofst Shldr Rtn Implanted:Qty: 1 on 12/15/2023 by Diego Santos MD at [facility] Right: Shoulder [employer] 10/30/2029 508-32-103 / / [id number] Screw 5mm 26mm Shldr Lck Rsp Glnd Bsplt Implanted:Qty: 1 on 12/15/2023 by Diego Santos MD at [facility] Right: Shoulder [employer] 08/19/2029 506-03-126 / / [id number] Screw 5mm 26mm Shldr Lck Rsp Glnd Bsplt Implanted:Qty: 1 on 12/15/2023 by Diego Santos MD at [facility] Right: Shoulder [employer] 09/11/2029 506-03-126 / / [id number] Screw 5mm 14mm Shldr Lck Rsp Glnd Bsplt Implanted:Qty: 1 on 12/15/2023 by Diego Santos MD at [facility] Right: Shoulder [employer] 10/09/2029 506-03-114 / / [id number] Stem Hum 48mm 6mm Sm Shl Implanted:Qty: 1 on 12/15/2023 by Diego Santos MD at [facility] Right: Shoulder [employer] 06/25/2029 533-06-048 / / [id number] Ins Sckt 32mm Altivate Rvrs Sm Ntrl Implanted:Qty: 1 on 12/15/2023 by Diego Santos MD at [facility] Right: Shoulder [employer] 06/20/2028 509-02-032 / / [id number] Explanted Type Area Knowledge Architect Device Identifier Shelf Expiration Date Model / Serial / Lot Pin Fx 3in Fem Dist Smth Qrlse Explanted:Qty: 1 on 12/15/2023 by Diego Santos MD at [facility] Right: Shoulder [employer] [id number] / / Procedures Procedure Name Priority Date/Time Associated Diagnosis Comments XR PELVIS W RIGHT HIP 2VW Routine 04/13/2025 12:56 PM CDT Pain of right hip from Last 3 Months Results * XR Pelvis W Right Hip 2Vw (04/13/2025 12:56 PM CDT) Anatomical Region Laterality Modality Pelvis Computed Radiogr aphy 04/13/2025 1:4 4 PM CDT Impressions 04/13/2025 1:51 PM CDT IMPRESSION: A left hip prosthesis is present in appropriate alignment. There is bony demineralization. Postoperative changes lumbosacral spine are present with hardware. There is an old left pubic ramus fracture. No definite acute fracture or subluxation is demonstrated. Edited by Tasia Paz on 04/13/2025 1:45 PM > Interpreting Provider: Luis M Starks MD on 04/13/2025 1:51 PM Narrative 04/13/2025 1:51 PM CDT PROCEDURE: XR PELVIS W RIGHT HIP 2VW DATE/TIME OF EXAM: 04/13/2025 12:56 PM INDICATION: M25.551: Pain in right hip. Additional History: COMPARISON: None. TECHNIQUE: Pelvis AP view and right hip 2 views. FINDINGS: None. Procedure Note Luis M Starks MD - 04/13/2025 PROCEDURE: XR PELVIS W RIGHT HIP 2VW DATE/TIME OF EXAM: 04/13/2025 12:56 PM INDICATION: M25.551: Pain in right hip. Additional History: COMPARISON: None. TECHNIQUE: Pelvis AP view and right hip 2 views. FINDINGS: None. IMPRESSION: A left hip prosthesis is present in appropriate alignment. There is bony demineralization. Postoperative changes lumbosacral spine are presentwith hardware. There is an old left pubic ramus fracture. No definite acute fracture or subluxation is demonstrated. Edited by Tasia Paz on 04/13/2025 1:45 PM > Interpreting Provider: Luis M Starks MD on 04/13/2025 1:51 PM Lucho Carrizales DO DIAGNOSTIC IMAGING ORDER TA Final Result from Last 3 Months Insurance [facility] [place] [id number] MANAGED MEDICARE ADV Advance Directives * Full Code (Latest Code Status on File) Date Activated Date Inactivated Comments 12/15/2023 2:14 PM 12/17/2023 6:19 PM Care Teams Hydraulic Pile Hammer Operator Relationship Specialty Start Date End Date Dave Edwards MD [address] [address] PCP - General Family Medicine 09/03/24
[2025-05-30 14:45] LABS: Basophils Absolute Auto 0.1 K/mm3 (0.0-0.1); Basophils Percent Auto 0.6 % (0.2-1.2); Eosinophils Absolute Auto 0.1 K/mm3 (0-0.3); Eosinophils Percent Auto 1.6 % (0-4.4); Hematocrit 43.2 % (37.0-47.0); Hemoglobin 14.4 g/dL (12.0-15.0); Immature Granulocyte Absolute 0.03 K/mm3 (0.00-0.031); Immature Granulocyte Percent A 0.4 % (0-0.5); Lymphocytes Absolute Auto 1.44 K/mm3 (0.9-3.2); Lymphocytes Percent Auto 17.8 % (18.3-44.2); Mean Corpuscular HGB Conc 33.3 g/dl (32-36); Mean Corpuscular Hemoglobin 29.9 pg (26-34); Mean Corpuscular Volume 89.6 fl (80-100); Mean Platelet Volume 10.2 fl (7.4-10.4); Monocytes Absolute Auto 0.6 K/mm3 (0.1-0.6); Monocytes Percent Auto 7.4 % (2.6-8.5); Neutrophils Absolute Auto 5.9 K/mm3 (1.3-6.7); Neutrophils Percent Auto 72.2 % (45.5-73.1); Platelet Count Result 320 k/mm3 (150-375); Red Blood Count 4.82 M/mm3 (4.2-5.4); Red Cell Distribution Width 13.3 % (11.5-14.5); White Blood Count 8.1 K/mm3 (4.5-10.0)
[2025-05-30 14:59] LABS: Alanine Aminotransferase 14 U/L (6-35); Albumin Level 3.6 g/dL (3.5-5.1); Alkaline Phosphatase 104 U/L (38-126); Anion Gap 9 mmol/L (4-12); Aspartate Amino Transferase 25 U/L (14-36); Bilirubin,Total 0.3 mg/dL (0.2-1.3); Blood Urea Nitrogen 13 mg/dL (7-17); Calcium 8.8 mg/dL (8.4-10.2); Carbon Dioxide 27 mmol/L (22-30); Chloride 100 mmol/L (98-107); Estimated Glomerular Filt Rate 53; Glucose 114 mg/dL (65-110); Potassium 3.4 mmol/L (3.4-5.0); Sodium 136 mmol/L (137-145); Total Protein 6.8 g/dL (6.3-8.2)
[2025-05-30 15:47] LABS: Hepatitis C Virus Antibody Negative (Negative)
[2025-05-31 05:23] LABS: GGT 53 U/L (3-65)
== END 2025-05-30 14:21 | disposition home or self-care (01) ==
PROVIDERS: PCP Nurse Practitioner Family; Visit Provider Nurse Practitioner Family
DX: R79.89 Other specified abnormal findings of blood chemistry (principal); R74.8 Abnormal levels of other serum enzymes; I10 Essential (primary) hypertension
CPT/HCPCS: 36415; 80053; 82977; 85025; 86803

== ENCOUNTER 2025-10-06 15:46 | Outpatient (CLI) | payer MEDICARE, SELFPAY ==
[2025-10-06 16:56] LABS: Hematocrit 45.8 % (37.0-47.0); Hemoglobin 15.1 g/dL (12.0-15.0); Immature Granulocyte Percent A 0.2 % (0-0.5); Lymphocytes Absolute Auto 2.08 K/mm3 (0.9-3.2); Mean Corpuscular HGB Conc 33.0 g/dl (32-36); Mean Corpuscular Hemoglobin 30.5 pg (26-34); Mean Corpuscular Volume 92.5 fl (80-100); Nucleated Red Blood Cells Absolute Auto 0.000 K/mm3 (0.0-0.012); Nucleated Red Blood Cells Perc 0.0 % (0.0-0.2); Platelet Count Result 272 k/mm3 (150-375); Red Blood Count 4.95 M/mm3 (4.2-5.4); White Blood Count 8.5 K/mm3 (4.5-10.0)
[2025-10-06 17:13] LABS: Alanine Aminotransferase 111 U/L (6-35); Albumin Level 4.0 g/dL (3.5-5.1); Alkaline Phosphatase 207 U/L (38-126); Anion Gap 7 mmol/L (4-12); Aspartate Amino Transferase 39 U/L (14-36); Bilirubin,Total 0.8 mg/dL (0.2-1.3); Blood Urea Nitrogen 18 mg/dL (7-17); Calcium 8.8 mg/dL (8.4-10.2); Carbon Dioxide 26 mmol/L (22-30); Chloride 100 mmol/L (98-107); Estimated Glomerular Filt Rate 56; Glucose 130 mg/dL (65-110); Magnesium 1.7 mg/dL (1.6-2.3); Potassium 3.6 mmol/L (3.4-5.0); Sodium 133 mmol/L (137-145); Total Protein 7.1 g/dL (6.3-8.2)
--- OUTSIDE RECORDS SUMMARY | 2025-10-06 21:00 | XMS_ITS | Encounter Summary ---
Author Organization [facility] Address [address] [place] [address] [place] [address] Care Team Providers Care Web Worker Name Role Phone Dave Edwards MD Primary Care Provider + Encounter Details Date Type Department Care Team (Latest Contact Info) Description 10/06/2025 Travel Social History Tobacco Use Types Packs/Day Years Used Date Smoking Tobacco: Every Day Cigarettes 0.5 25 Smokeless Tobacco: Never Alcohol Use Standard Drinks/Week Comments Not Currently [...] Recorded Patient Health Questionnaire-2 Score 2 04/13/2025 [facility] [place] of Occupat ional Health - Occupational Stress [...] place to sleep or slept in a half-way (including now)? No 12/16/2023 Comments No Sex and Gender Information Value Date Recorded Sex Assigned at Female 09/04/2023 2:48 PM CDT Legal Sex Female 9:19 AM CDT Gender Identity Not on file Sexual Orientation Not on file documented as of this encounter Functional Status * Is person deaf or have serious hearing difficulty? Answer Date of Assessment Author No 12/16/2023 6:15 PM Tenzin Dong RN * Is person blind or have serious difficulty seeing? Answer Date of Assessment Author No 12/16/2023 6:15 PM Tenzin Dong RN * Does person have serious difficulty walking/climbing stairs? Answer Date of Assessment Author Yes 12/16/2023 6:15 PM Tenzin Dong RN * Does person have difficulty dressing/bathing? Answer Date of Assessment Author Yes 12/16/2023 6:15 PM Tenzin Dong RN * Does person have difficulty doing errands alone? Answer Date of Assessment Author Yes 12/16/2023 6:15 PM Tenzin Dong RN documented as of this encounter Mental Status * Does person have difficulty concentrating/remembering/making decisions? Answer Entry Date Author No 12/16/2023 6:15 PM PROJECT DESIGN ENGINEER Tenzin Adams RN documented in this encounter Plan of Treatment Upcoming Encounters Date Type Department Care Team (Latest Contact Info) Description 10/10/2025 7:20 AM PROJECT DESIGN ENGINEER Hospital Encounter [facility] [place] [facility] [address] [place] [address] Diego Santos MD [address] [place] [address] Surgery General 10/10/2025 7:20 AM PROJECT DESIGN ENGINEER - 10/10/2025 8:50 AM PROJECT DESIGN ENGINEER Surgery [facility] [place] [facility] [address] [place] [address] Diego Santos MD [address] [place] [address] SHOULDER CONJOINED TENDON RELEASE 12/16/2025 11:20 AM PROJECT DESIGN ENGINEER Office Visit [facility] - Orthopedic Surgery [address] [place] [address] Diego Santos MD [address] [place] [address] Scheduled Procedures Name Priority Associated Diagnoses Date/Ti me TENOTOMY RELEASE/DEBRIDEMENT (EXCISION) EPICONDYLE 10/10/2025 7:20 AM PROJECT DESIGN ENGINEER documented as of this encounter Visit Diagnoses Not on filedocumented in this encounter Care Teams Web Worker Relationship Specialty Start Date End Date Dave Edwards MD [address] [address] PCP - General Family Medicine 09/03/24 Emilie Schmitt [facility] Cardiology Nut Culler Cardiology 06/01/25 documented as of this encounter
--- OUTSIDE RECORDS SUMMARY | 2025-10-06 21:00 | XMS_ITS | Clinical Summary ---
Author Organization [facility] [employer] Address [address] [facility] [place] [address] Care Team Providers Care Station Gateman Name Role Phone Dave Edwards MD Primary Care Provider + Source Comments [facility] [employer],non-owned Affiliates and Associated Physician Practices is amultiple site organization consisting of ambulatory clinics and hospital sitesin [place], [place] and [place]. This disclosure is being madepursuant to the Care Everywhere program and may not contain all information available regarding this patient. Last updated 18.[facility] [employer] Allergies Active Allergy Reactions Criticality Noted Date [...] of surgery 40 tablet 12/29/19 24 Active doxycycline hyclate (Vibramycin) 100 MG capsule Take [...] daily 100 g 5 04/13/20 25 Active Additional Information Patient not taking.Reason: Patient adjusted, Informant: Patient, Reported on 10/06/2025 lidocaine (Lidoderm) 5 % patchIndications:O steoarthritis of right hip, unspecified osteoarthritis type Apply 1 (one) patch to skin once daily Apply patch to most painful area and remove after 12 hours. May reapply a new patch 12 hours later. 30 patch 04/13/20 25 Active Additional Information Patient not taking.Reason: Patient adjusted, Informant: Patient, Reported on 10/06/2025 Active Problems Problem Noted Date Diagnosed Date [...] Encounters Date Type Department Care Team Description 10/06/2025 Travel 08/02/2025 Telephone [facility] - Orthopedic Surgery [address] [place] [address] Diego Santos MD Surgery Scheduling from Last 3 Months Immunizations Immunization Administration Dates Next Due TDAP (7yrs+) 06/01/2025 Social History Tobacco Use Types Packs/Day Years [...] Recorded Patient Health Questionnaire-2 Score 2 04/13/2025 [facility] of Occupat ional Health - Occupational Stress [...] place to sleep or slept in a nursing home (including now)? No 12/16/2023 Comments No Sex and Gender Information Value Date Recorded Sex Assigned at Female 09/04/2023 2:48 PM CDT Legal Sex Female 9:19 AM CDT Gender Identity Not on file Sexual Orientation Not on file Last Filed Vital Signs Vital Sign Reading Time Taken Comments Blood Pressure 170/79 06/01/2025 9:58 AM CDT Pulse 64 06/01/2025 9:58 AM CDT Temperature 36.8 C (98.3 F) 06/01/2025 8:53 AM CDT Respiratory Rate 18 06/01/2025 8:53 AM CDT Oxygen Saturation 94% 06/01/2025 9:58 AM CDT Inhaled Oxygen Concentration - - Weight 44 kg (97 lb) 10/06/2025 2:33 PM BAKER BENCH Height 162.6 cm (5' 4) 10/06/2025 2:33 PM BAKER BENCH Body Mass Index 16.65 10/06/2025 2:33 PM BAKER BENCH Plan of Treatment Upcoming Encounters Date Type Department Care Team (Latest Contact Info) Description 10/10/2025 7:20 AM BAKER BENCH Hospital Encounter [facility] [place] [address] [place] [address] iDego Santos MD [address] [place] [address] Surgery General 10/10/2025 7:20 AM BAKER BENCH - 10/10/2025 8:50 AM BAKER BENCH Surgery [facility] [place] [address] [address] [address] Diego Santos MD [address] [place] [address] SHOULDER CONJOINED TENDON RELEASE 12/16/2025 11:20 AM BAKER BENCH Office Visit [facility] - Orthopedic Surgery [address] [place] [id number] Diego Santos MD [address] [place] [address] Scheduled Procedures Name Priority Associated Diagnoses Date/Ti me TENOTOMY RELEASE/DEBRIDEMENT (EXCISION) EPICONDYLE 10/10/2025 7:20 AM BAKER BENCH Health Maintenance Due Date Last Done Comments BONE DENSITY TESTING 1955 COLOGUARD (AGES 45-75) - COL ON CA SCREENING 1956 COLON MONITORING 1956 COLONOSCOPY - COLON CA SCREENING 1956 CT COLONOGRAPHY - COLON CA SCREENING 1956 Colorectal Cancer Screening 1956 FIT - COLON CA SCREENING 1956 FLEX SIG - COLON CA SCREENING 1956 LIPID TESTING 1956 MAMMOGRAM 1956 HEPATITIS C SCREENING 04/27/1974 PNEUMOCOCCAL VACCINE 50+ (1 of 2 - PCV) 1975 ZOSTER VACCINE (1 of 2) 2006 Respiratory Syncytial Virus (RSV) Vaccine Pt: or over 60 yrs (1 - Risk 60-74 years 1-dose series) 2016 MEDICARE AWV CALENDAR YEAR 2024 COVID-19 VACCINE (3 - 2024-2 6 season) 2025 10/02/2022, 02/04/2021 INFLUENZA VACCINE (#1) 2025 08/30/2024 DTAP/TDAP/TD VACCINES (2 - T d or Tdap) 06/01/2035 06/01/2025 DEPRESSION SCREENING Completed 04/13/2025, 09/03/2024 HEPATITIS B [...] this topic Medical Devices Implanted Type Area Traffic Engineering Technician Device Identifier Shelf Expiration Date Model / Serial / Lot Bsplt Glnd 30mm Rsp Shldr P2 Strl Lf Implanted:Qty: 1 on 12/15/2023 by Diego Santos MD at [facility] Right: Shoulder [employer] 10/04/2029 508-32-204 / / [id number] Head Glnd 32mm Rsp -4mm Ofst Shldr Rtn Implanted:Qty: 1 on 12/15/2023 by Diego Santos MD at [facility] Right: Shoulder [employer] 10/30/2029 508-32-103 / / [id number] Screw 5mm 26mm Shldr Lck Rsp Glnd Bsplt Implanted:Qty: 1 on 12/15/2023 by Diego Santos MD at [facility] Right: Shoulder [employer] 08/19/2029 506-03-126 / / [id number] Screw 5mm 26mm Shldr Lck Rsp Glnd Bsplt Implanted:Qty: 1 on 12/15/2023 by Diego Santos MD at [facility] Right: Shoulder [employer] 09/11/2029 506-03-126 / / [id number] Screw 5mm 14mm Shldr Lck Rsp Glnd Bsplt Implanted:Qty: 1 on 12/15/2023 by Diego Santos MD at [facility] Right: Shoulder [employer] 10/09/2029 506-03-114 / / [id number] Stem Hum 48mm 6mm Sm Shl Implanted:Qty: 1 on 12/15/2023 by Diego Santos MD at [facility] Right: Shoulder [employer] 06/25/2029 533-06-048 / / [id number] Ins Sckt 32mm Altivate Rvrs Sm Ntrl Implanted:Qty: 1 on 12/15/2023 by Diego Santos MD at [facility] Right: Shoulder [employer] 06/20/2028 509-02-032 / / [id number] Explanted Type Area Traffic Engineering Technician Device Identifier Shelf Expiration Date Model / Serial / Lot Pin Fx 3in Fem Dist Smth Qrlse Explanted:Qty: 1 on 12/15/2023 by Diego Santos MD at [facility] Right: Shoulder [employer] 800-338 / / Insurance [facility] MANAGED MEDICARE ADV [facility] MANAGED MEDICARE ADV Advance Directives * Full Code (Latest Code Status on File) Date Activated Date Inactivated Comments 12/15/2023 2:14 PM 12/17/2023 6:19 PM Care Teams Station Gateman Relationship Specialty Start Date End Date Dave Edwards MD [address] [address] PCP - General Family Medicine 09/03/[address] [facility] Cardiology Connie Cleaner Cardiology 06/01/25
--- OUTSIDE RECORDS SUMMARY | 2025-10-06 21:00 | XMS_ITS | Clinical Summary ---
Author Organization [facility] Address [address] [place] [address] Care Team Providers Care Water Softener Service Supervisor Name Role Phone AnnieAdriana Olaf MEJIA Primary Care Provider [phone] Allergies Active Allergy Reactions Criticality Noted Date [...] puff into the lungs daily. 4 Active clotrimazole-beta methasone (LOTRISONE) creamIndications: Cellulitis of left lower extremity Apply topically 2 (two) times daily. APPLY TO AFFECTED AREA 45 g 1 4 Active escitalopram (LEXAPRO) 10 MG tabletIndications :Anxiety TAKE 1 TABLET BY MOUTH EVERY DAY 90 tablet 1 4 Active metoprolol succinate ER (TOPROL-XL) 100 MG 24 hr tabletIndications :Essential hypertension TAKE 1 TABLET BY MOUTH EVERY DAY IN THE MORNING 90 tablet 1 5 Active Active Problems Problem Noted Date Diagnosed Date Paroxysmal atrial fibrillation 02/04/2023 Chronic systolic heart failure 02/04/2023 PFO (patent foramen ovale) 10/02/2022 Hypoxia 10/02/2022 Panlobular emphysema 10/02/2022 Mild protein-calorie malnutrition 09/20/2022 History of Legionnaire's disease 08/06/2019 Essential hypertension 08/03/2019 Chronic bilateral low back pain with bilateral s ciatica 08/03/2019 Anxiety 08/03/2019 Resolved Problems Problem Noted Date Diagnosed Date Resolved Date Cellulitis of lower limb 02/19/2022 Traumatic leg ulcer 02/19/2022 07/01/20 23 Encounters Date Type Department Care Team Description 08/09/2025 Scan [facility] INFO SRVCS Scanned, Doc [...] Date Smoking Tobacco: Every Day Cigarettes 0.5 46.2 Started: 07/21/1979 Smokeless Tobacco: Never Tobacco Cessation:Ready [...] 1 - Tdap) 1975 Mammogram Screening 1996 Zoster Vaccines (1 of 2) 2006 RSV Immunization or 60+ Years (1 - Risk 60-74 years 1-dose series) 2016 Annual Medicare Wellness Visit 2021 PHQ-2 (Physician [place]) 12/01/2024 COVID-19 Vaccine (3 - 2024-2 6 season) 2025 10/02/2022, 02/04/2021 Influenza Adult (#1) 2025 Dexa Scan (General) Completed 02/02/2018 Pneumococcal Vaccine: 50+ Years Completed 10/02/2022 Hepatitis A Vaccines Aged Out No long er eligible based on patient's age to complete this topic Meningococcal B Vaccine Aged Out No l onger eligible based on patient's age to complete this topic Meningococcal Vaccine Aged Out No igor dorie eligible based on patient's age to complete this topic RSV Immunizations Under 20 Months Aged Out No longer eligible b ased on patient's age to complete this topic Insurance [place] MEDIC[employer] Care Teams Water Softener Service Supervisor Relationship Specialty Start Date End Date Adriana Valencia APNP [address] [place] [id number] PCP - General NURSE PRACTITIONER 08/03/19
== END 2025-10-06 15:47 | disposition home or self-care (01) ==
LOC: ANHLAB 15:47
PROVIDERS: PCP Nurse Practitioner Family; Visit Provider Nurse Practitioner Family
DX: I11.0 Hypertensive heart disease with heart failure (principal); I50.9 Heart failure, unspecified
CPT/HCPCS: 36415; 80053; 83735; 85025

== ENCOUNTER 2025-10-07 12:57 | Outpatient (CLI) | payer MEDICARE, SELFPAY ==
--- NOTE | ~2025-10-07 | XR_ITS ---
Examination: XR chest 2V Clinical History: I50.9 - Heart failure, unspecified Comparison: 02/11/2024 CT chest Technique: PA and Lateral Findings: Cardiomediastinal silhouette normal size and configuration. Severe emphysema and scattered interstitial changes. Apparent opacity right base. No acute bony abnormality. IMPRESSION: 1. Apparent airspace opacity right base probably superimposed shadows but recommend short interval follow-up x-rays and/or CT chest. 2. Otherwise no acute abnormality. Reviewed, dictated and finalized at location R. WORKER IMPRESSION: 1. Apparent airspace opacity right base probably superimposed shadows but eleno mmend short interval follow-up x-rays and/or CT chest. 2. Otherwise no acute abnormality.
--- OUTSIDE RECORDS SUMMARY | 2025-10-07 13:02 | XMS_ITS | Clinical Summary ---
Author Organization [facility] Address [address] [place] [address] Care Team Providers Care Public Area Supervisor Name Role Phone AnnieAdriana Olaf MEJIA Primary Care Provider [phone] Allergies Active Allergy Reactions Criticality Noted Date [...] Annual Medicare Wellness Visit 2021 PHQ-2 (Physician [place]) 12/01/2024 COVID-19 Vaccine (3 - 2024-2 6 [...] patient's age to complete this topic Insurance [facility] MEDICARE Care Teams Public Area Supervisor Relationship Specialty Start Date End Date Adriana Valencia APNP [address] [place] [id number] PCP - General NURSE PRACTITIONER 08/03/19
--- OUTSIDE RECORDS SUMMARY | 2025-10-07 13:02 | XMS_ITS | Clinical Summary ---
Author Organization [facility] [employer] Address [address] [facility] [place] [address] Care Team Providers Care Gas Meter Reader Name Role Phone Dave Edwards MD Primary Care Provider + Source Comments [facility] [employer],non-owned Affiliates and Associated Physician Practices is amultiple site organization consisting of ambulatory clinics and hospital sitesin [place], [place], [place] and [place]. This disclosure is being madepursuant to the Care Everywhere program and may not contain all information available regarding this patient. Last updated 18.[facility] [employer] Allergies Active Allergy Reactions Criticality Noted Date [...] [address] [place] [address] Diego Santos MD Surgery Scheduling from Last [...] Recorded Patient Health Questionnaire-2 Score 2 04/13/2025 [facility] of Occupat ional Health - Occupational [...] 44 kg (97 lb) 10/06/2025 2:33 PM BREEDING TECHNICIAN Height 162.6 cm (5' 4) 10/06/2025 2:33 PM BREEDING TECHNICIAN Body Mass Index 16.65 10/06/2025 2:33 PM BREEDING TECHNICIAN Plan of Treatment Upcoming Encounters Date Type Department Care Team (Latest Contact Info) Description 10/10/2025 7:20 AM BREEDING TECHNICIAN Hospital Encounter [facility] [place] [address] [address] [address] Diego Santos MD [address] [place] [address] Surgery General 10/10/2025 7:20 AM BREEDING TECHNICIAN - 10/10/2025 8:50 AM BREEDING TECHNICIAN Surgery [facility] [place] [address] [address] Diego Santos MD [address] [place] [address] SHOULDER CONJOINED TENDON RELEASE 12/16/2025 11:20 AM BREEDING TECHNICIAN Office Visit [facility] - Orthopedic Surgery [address] [place] [phone] Diego Santos MD [address] [place] [address] Scheduled Procedures Name Priority Associated Diagnoses Date/Ti me TENOTOMY RELEASE/DEBRIDEMENT (EXCISION) EPICONDYLE 10/10/2025 7:20 AM BREEDING TECHNICIAN Health Maintenance Due Date Last Done Comments [...] this topic Medical Devices Implanted Type Area Petroleum Terminal Plant Operator Device Identifier Shelf Expiration Date Model / Serial / Lot Bsplt Glnd 30mm Rsp Shldr P2 Strl Lf Implanted:Qty: 1 on 12/15/2023 by Diego Santos MD at [facility] Right: Shoulder [employer] 10/04/2029 508-32-204 / / [id number] Head Glnd 32mm Rsp -4mm Ofst Shldr Rtn Implanted:Qty: 1 on 12/15/2023 by Diego Santos MD at [facility] Right: Shoulder [employer] 10/30/2029 508-32-103 / / [id number] Screw 5mm 26mm Shldr Lck Rsp Glnd Bsplt Implanted:Qty: 1 on 12/15/2023 by Diego Santos MD at [facility] Right: Shoulder [employer] 08/19/2029 506-03-126 / / [id number] Screw 5mm 26mm Shldr Lck Rsp Glnd Bsplt Implanted:Qty: 1 on 12/15/2023 by Diego Santos MD at [facility] Right: Shoulder [employer] 09/11/2029 506-03-126 / / [id number] Screw 5mm 14mm Shldr Lck Rsp Glnd Bsplt Implanted:Qty: 1 on 12/15/2023 by Diego Santos MD at [facility] Right: Shoulder [employer] 10/09/2029 506-03-114 / / [id number] Stem Hum 48mm 6mm Sm Shl Implanted:Qty: 1 on 12/15/2023 by Diego Santos MD at [facility] Right: Shoulder [employer] 06/25/2029 533-06-048 / / [id number] Ins Sckt 32mm Altivate Rvrs Sm Ntrl Implanted:Qty: 1 on 12/15/2023 by Diego Santos MD at [facility] Right: Shoulder [employer] 06/20/2028 509-02-032 / / [id number] Explanted Type Area Petroleum Terminal Plant Operator Device Identifier Shelf Expiration Date Model / Serial / Lot Pin Fx 3in Fem Dist Smth Qrlse Explanted:Qty: 1 on 12/15/2023 by Diego Santos MD at [facility] Right: Shoulder [employer] [id number] / / Insurance [facility] MANAGED MEDICARE ADV [facility] MANAGED MEDICARE ADV Advance Directives * Full Code (Latest Code Status on File) Date Activated Date Inactivated Comments 12/15/2023 2:14 PM 12/17/2023 6:19 PM Care Teams Gas Meter Reader Relationship Specialty Start Date End Date Dave Edwards MD [address] [address] PCP - General Family Medicine 09/03/24 Emilie Schmitt [facility] Cardiology Service Correspondent Cardiology 06/01/25
--- OUTSIDE RECORDS SUMMARY | 2025-10-07 13:02 | XMS_ITS | Encounter Summary ---
Author Organization [facility] Address [address] [place] [address] [place] [address] Care Team Providers Care Travel Occupational Therapist Name Role Phone Dave Edwards MD Primary [...] Recorded Patient Health Questionnaire-2 Score 2 04/13/2025 [facility] of Occupat ional Health - Occupational Stress [...] place to sleep or slept in a assisted (including now)? No 12/16/2023 Comments No Sex [...] Entry Date Author No 12/16/2023 6:15 PM CELL OPERATION SUPERVISOR Tenzin Adams RN documented in this encounter Plan of Treatment Upcoming Encounters Date Type Department Care Team (Latest Contact Info) Description 10/10/2025 7:20 AM CELL OPERATION SUPERVISOR Hospital Encounter [facility] [place] [address] [place] [address] Diego Santos MD [address] [place] [address] Surgery General 10/10/2025 7:20 AM CELL OPERATION SUPERVISOR - 10/10/2025 8:50 AM CELL OPERATION SUPERVISOR Surgery [facility] [place] [address] [place] [address] Diego Santos MD [address] [place] [address] SHOULDER CONJOINED TENDON RELEASE 12/16/2025 11:20 AM CELL OPERATION SUPERVISOR Office Visit [facility] - Orthopedic Surgery [address] [place] [address] Diego Santos MD [address] [place] [address] Scheduled Procedures Name Priority Associated Diagnoses Date/Ti me TENOTOMY RELEASE/DEBRIDEMENT (EXCISION) EPICONDYLE 10/10/2025 7:20 AM CELL OPERATION SUPERVISOR documented as of this encounter Visit Diagnoses Not on filedocumented in this encounter Care Teams Travel Occupational Therapist Relationship Specialty Start Date End Date Dave Edwards MD [address] [address] PCP - General Family Medicine 09/03/24 Emilie Schmitt [facility] Cardiology Voice Intercept Technician Cardiology 06/01/25 documented as of this encounter
[2025-10-07 15:45] LABS: Hepatitis B Surface Antigen Negative (Negative)
[2025-10-07 15:50] LABS: Hepatitis B Core IgM Result Negative (Negative)
[2025-10-07 16:02] LABS: Hepatitis B Surface Anti Res Negative
[2025-10-07 16:10] LABS: Iron 43 ug/dL (37-170)
[2025-10-07 16:20] LABS: Percent Iron Saturation 13 % (20-50)
== END 2025-10-07 12:58 | disposition home or self-care (01) ==
PROVIDERS: PCP Nurse Practitioner Family; Visit Provider Nurse Practitioner Family
DX: I50.9 Heart failure, unspecified (principal); R74.01 Elevation of levels of liver transaminase levels; J44.9 Chronic obstructive pulmonary disease, unspecified
CPT/HCPCS: 36415; 71046; 83540; 83550; 86705; 86706; 86803; 87340